=== PATIENT | female | born 1930 | race Caucasian/White ===

== ENCOUNTER 2016-12-22 15:30 | Emergency (ER) | payer MEDICARE ==
[~2016-12-22] VITALS: Ht 162.6 cm; Wt 64.2 kg
[~2016-12-22 15:30] MED LIST: ACET-2267 PO; AMOX-358 PO; BETH10TA PO; CALC-654 PO; CIPR-225 PO; HYDR-3714; LORA10TA76 PO
--- OUTSIDE RECORDS SUMMARY | 2016-12-22 15:35 | XMS REPORT | Continuity of Care Document ---
Author Author [facility] Organization [facility] Address Unknown Phone Unavailable Care Team Providers Care Poultry Boner Name Role Phone LORE POWELL DO PCP Insurance Providers Payer Name Policy Number Subscriber Name Relationship [employer] [id number] Mary Gallego 19 Self / Same As Patient Advance Directives Directive Response Recorded Date/Time Advance Directives No 09/05/16 4:29pm Health Care Power of Organ Teacher No 09/05/16 4:29pm Organ Donor No 09/05/16 4:29pm Resuscitation Status Full Code 09/05/16 4:29pm Problems No problem information available. Medications Current Home Medications Medication Dose Units Route Directions Days/Qty Instructions Start Date Acetaminophen 500 Mg 500-1000 Mg Oral Every 4HRS as needed for Pain 09/05/16 Calcium Carbonate/Vitamin D3 1 Each 1 Tab Oral Daily 09/05/16 Loratadine 10 Mg 10 Mg Oral Daily 09/05/16 Amoxicillin/Potassium Clav 1 Each 1 Each Oral Twice A Day 10 09/10/16 Ciprofloxacin Hcl 500 Mg 500 Mg Oral Twice A Day 10 09/10/16 Bethanechol Chloride 10 Mg 10 Mg Oral Before Meals And At Bedtime 30 Days 09/10/16 Past Home Medications Medication Directions Ordered Status Acetaminophen/Hydrocodone Bitart 1 Each Tablet, 09/25/09 Discontinued Social History Social History Problem Response Recorded Date/Time Alcohol Use Denies Use 09/05/2016 4:32pm Recreational Drug Use No 09/05/2016 4:32pm Recent Foreign Travel No 09/05/2016 4:07pm Recent Infectious Disease Exposure No 09/05/2016 4:07pm Smoking Status Never a Smoker 09/05/2016 12:40pm Recent Hopitalizations No 09/05/2016 4:32pm Query Response Start Date Stop Date Smoking Status Never a Smoker Hospital Discharge Instructions Patient Instructions Physician Instructions Patient Instructions/FollowUp: change dressing twice a day. Check voiding twice a day and straight catheter if unable to void. Check She does with gait performance. Patient short patient takes medications antibiotics Patient Problems: gluteal abscess. Urinary retention [facility] [place] DISCHARGE ORDERS Height (Feet): 5 Height (Inches): 4.00 Weight (Pounds): 141 Weight (Ounces): 9.0 Reason Pt Homebound uses walker to get around. Gluteal abscess. In hospital urinary retention Date of Face to Face: Sep 10, 2016 Discharged To: Home Diagnosis/Conditions HH Order: gluteal abscess. Urinary retention. Unstable gait *I certify that based on my findings, the following services are medically necessary Home Health Services: Services: Nursing Services My clinical findings support the need for the above services; see Diagnosis. Pneu Vac Indicated: Yes I certify that this patient is under my care and that I, a nurse practitioner or a physician; a assistant wrestling coach working with me, had a face to face encounter that - meets the physician face to face encounter requirements with this patient as dated. Care Plan Patient Instructions:: change dressing twice a day.Check voiding twice a day and straight catheter if unable to void.Check She does with gait performance.Patient short patient takes medications antibiotics Patient Problems: gluteal abscess.Urinary retention Plan of Care Discharge Date 09/10/16 3:15pm Disposition 06 HOME HEALTH SERVICE Instructions/Education Provided Regular Diet (GEN) Forms Provided Follow-Up Fax Prescriptions See Medication Section Referrals XIOMARA RUIZ MD (Unspecified) - 09/15/16 Address: [address] [place] [phone] Reason(s) for Referral: THURSDAY SEPTEMBER 15, 2016 AT 2:45 P.M. LORE POWELL DO (Unspecified) - 09/14/16 Address: [address] [place] [phone] Reason(s) for Referral: CALL ON MONDAY TO SCHEDULE A FOLLOW-UP APPOINTMENT FOR MONDAY Care Plan and Goals See Discharge Instructions Section Functional Status Query Response Date Recorded Patient Orientation Person Place Time Situation September 10, 2016 10:36am Patient Orientation Person Place Time Situation September 10, 2016 5:07pm Comprehension Ability Understands Concepts September 08, 2016 9:00pm Allergies, Adverse Reactions, Alerts Allergen Type Severity Reaction Status Last Updated NKANo Known Allergies Allergy Mild Active 09/23/09 Immunizations Name Given Type FLU TRIvalent 5 years - Adult 09/05/16 Administered Vital Signs Acute Vital Signs Vital Response Date/Time Temperature (Fahrenheit) 98.1 degrees F (97.6 - 99.5) 09/10/2016 3:15pm Temperature (Calculated Celsius) 36.53140 degrees C (36.4 - 37.5) 09/10/2016 12:00pm Temperature Source Tympanic 09/10/2016 3:15pm Pulse Rate (adult) 94 bpm (60 - 90) 09/10/2016 3:15pm Respiratory Rate 19 bpm (12 - 24) 09/10/2016 3:15pm O2 Sat by Pulse Oximetry 96 % (88 - 100) 09/10/2016 3:15pm Blood Pressure 127/68 mm Hg 09/10/2016 3:15pm Blood Pressure Mean 87 mm Hg 09/10/2016 12:00pm Pain Numeric Pain Scale 0-No Pain 09/10/2016 3:15pm Height (Feet) 5 feet 09/05/2016 4:35pm Height (Inches) 4.00 inches 09/05/2016 4:35pm Height (Calculated Centimeters) 162.249472 cm 09/05/2016 4:35pm Weight (Pounds) 141 pounds 09/05/2016 4:35pm Weight (Ounces) 9.0 oz 09/05/2016 4:35pm Weight (Calculated Grams) 22497.67 gm 09/05/2016 4:35pm Weight (Calculated Kilograms) 64.037865 kilograms 09/05/2016 4:35pm Calculated BMI 24.3 09/05/2016 4:35pm Results Laboratory Results Test Name Result Units Flags Reference Collection Date/Time Result Date/ Time Comments White Blood Count 7.0 10^3/uL 4.3-11.0 09/10/2016 5:20am 09/10/2016 5: 29am Red Blood Count 3.49 10^6/uL L 4.35-5.85 09/10/2016 5:20am 09/10/2016 5: 29am Hemoglobin 11.3 G/DL L 11.5-16.0 09/10/2016 5:20am 09/10/2016 5:29am Hematocrit 33 % L 35-52 09/10/2016 5:20am 09/10/2016 5:29am Mean Corpuscular Volume 95 FL 80-99 09/10/2016 5:20am 09/10/2016 5: 29am Mean Corpuscular Hemoglobin 32 PG 25-34 09/10/2016 5:20am 09/10/2016 5: 29am Mean Corpuscular Hemoglobin Concent 34 G/DL 32-36 09/10/2016 5:20am 5:29am Red Cell Distribution Width 12.8 % 10.0-14.5 09/10/2016 5:20am 2015 5:29am Platelet Count 324 10^3/uL 130-400 09/10/2016 5:20am 09/10/2016 5:29am Mean Platelet Volume 9.2 FL 7.4-10.4 09/10/2016 5:20am 09/10/2016 5: 29am Neutrophils (%) (Auto) 69 % 42-75 09/09/2016 6:30am 09/09/2016 7:09am Lymphocytes (%) (Auto) 16 % 12-44 09/09/2016 6:30am 09/09/2016 7:09am Monocytes (%) (Auto) 13 % H 0-12 09/09/2016 6:30am 09/09/2016 7:09am Eosinophils (%) (Auto) 1 % 0-10 09/09/2016 6:30am 09/09/2016 7:09am Basophils (%) (Auto) 0 % 0-10 09/09/2016 6:30am 09/09/2016 7:09am Neutrophils # (Auto) 4.9 X 10^3 1.8-7.8 09/09/2016 6:30am 09/09/2016 7: 09am Lymphocytes # (Auto) 1.1 X 10^3 1.0-4.0 09/09/2016 6:30am 09/09/2016 7: 09am Monocytes # (Auto) 0.9 X 10^3 0.0-1.0 09/09/2016 6:30am 09/09/2016 7: 09am Eosinophils # (Auto) 0.1 10^3/uL 0.0-0.3 09/09/2016 6:30am 09/09/2016 7 :09am Basophils # (Auto) 0.0 10^3/uL 0.0-0.1 09/09/2016 6:30am 09/09/2016 7: 09am Sodium Level 139 MMOL/L 135-145 09/10/2016 5:20am 09/10/2016 5:49am Potassium Level 3.6 MMOL/L 3.6-5.0 09/10/2016 5:20am 09/10/2016 5:49am Chloride Level 102 MMOL/L 98-107 09/10/2016 5:20am 09/10/2016 5:49am Carbon Dioxide Level 28 MMOL/L 21-32 09/10/2016 5:20am 09/10/2016 5: 49am Anion Gap 9 MMOL/L 5-14 09/10/2016 5:20am 09/10/2016 5:49am Blood Urea Nitrogen 3 MG/DL L 7-18 09/10/2016 5:20am 09/10/2016 5:49am Creatinine 0.55 MG/DL L 0.60-1.30 09/10/2016 5:20am 09/10/2016 5:49am BUN/Creatinine Ratio 5 09/10/2016 5:20am 09/10/2016 5:49am Estimat Glomerular Filtration Rate > 60 09/10/2016 5:20am 2015 5:49am GFR INTERPRETIVE DATA UNITS FOR ESTIMATED GFR (eGFR): mL/min/1.73 M2 REFERENCE RANGE FOR ESTIMATED GFR (eGFR) eGFR NORMAL eGFR >60 MODERATELY DECREASED eGFR 30-59 SEVERLY DECREASED eGFR 15-29 KIDNEY FAILURE <15 (OR DIALYSIS) Glucose Level 116 MG/DL H 70-105 09/10/2016 5:20am 09/10/2016 5:49am Calcium Level 8.2 MG/DL L 8.5-10.1 09/10/2016 5:20am 09/10/2016 5:49am Total Bilirubin 0.6 MG/DL 0.1-1.0 09/06/2016 5:44am 09/06/2016 7:00am Alkaline Phosphatase 48 U/L 40-136 09/06/2016 5:44am 09/06/2016 7:00am Aspartate Amino Transf (AST/SGOT) 16 U/L 5-34 09/06/2016 5:44am 2015 7:00am Alanine Aminotransferase (ALT/SGPT) 17 U/L 0-55 09/06/2016 5:44am 09/06 7:00am Total Protein 5.4 G/DL L 6.4-8.2 09/06/2016 5:44am 09/06/2016 7:00am Albumin 3.2 G/DL 3.2-4.5 09/06/2016 5:44am 09/06/2016 7:00am Microbiology Results Procedure Source Result Collection Date/Time Result Date/Time Blood Culture Peripheral, Left Wrist No growth 09/05/2016 2:00pm 2015 4:48pm Blood Culture Peripheral, Right Wrist No growth 09/05/2016 2:10pm 2015 4:48pm Wound Culture Cyst/Abscess, Coccyx STAPHYLOCOCCUS AUREUS 09/05/2016 4:00pm 09/09/2016 10:26am STREP ANGINOSUS 09/05/2016 4:00pm 09/09/2016 10:26am MRSA Screen Nasal MRSA not isolated 09/06/2016 6:30pm 09/08/2016 9:15am Procedures Procedure Status Date Provider(s) Incision and drainage of rectal abscess Completed 09/07/16 NELLIE MARCELO MD Encounters Encounter Location Arrival/Admit Date Discharge/Depart Date Attending Provider Discharged Inpatient [facility] 09/05/16 11:05am 3:15pm LORE POWELL DO
[2016-12-22] MEDS ORDERED: AZIT500T2 PO (16:28)
--- NOTE | 2016-12-22 17:09 | Diagnostic Imaging Report ---
INDICATION: Cough and congestion. COMPARISON: 09/23/2009. FINDINGS: Two views of the chest are obtained. Heart size is normal. There is no pulmonary vascular congestion. There is no pneumothorax, mediastinal widening, or pleural fluid demonstrated. There is a large air-filled hiatal hernia. There is perhaps some minimal atelectasis at the left lung base. The lungs are otherwise clear. The osseous structures appear unremarkable. IMPRESSION: Large hiatal hernia. Probable mild left basilar atelectasis. No additional abnormality is demonstrated. Dictated by: Dictated on workstation # [id number]
--- NOTE | 2016-12-22 17:25 | ED Cough/URI ---
General Chief Complaint: Cough/Cold/Flu Symptoms Stated Complaint: CONGESTION;COUGH;WEAKNESS Nursing Triage Note: PT STATES COUGH/COLD/CONGESTION FOR ABOUT [address] POWELL TOLD HER TO COME TO THE ER TO BE SEEN BY A DR. FEVER OFF AND ON, TAKING TYLENOL, LAST DOSE THIS A.M. History of Present Illness Time seen by provider: 16:30 Initial Comments Evaluation for continued cough and fatigue. Started with Zithromax yesterday took 2 pills yesterday and one today. Timing/Duration: getting worse Severity/Quality: productive cough (clear phlegm) Prior Episodes/Possible Cause: no prior episodes Modifying Factors: Improves With Coughing, Improves With Rest Associated Symptoms: fever/chills, other (fatigue) Allergies and Home Medications Allergies Coded Allergies: NKANo Known Allergies (Unverified Allergy, Mild, 09/23/09) Home Medications Azithromycin 500 Mg Tablet #3 500 MG PO DAILY (Reported) Constitutional: see HPI fever EENTM: no symptoms reported see HPI Respiratory: see HPI coughNo dyspnea on exertion, phlegmNo short of breath, No wheezing Cardiovascular: no symptoms reported see HPI Gastrointestinal: no symptoms reported see HPI Genitourinary: no symptoms reported see HPI Musculoskeletal: no symptoms reported see HPI Skin: no symptoms reported see HPI Psychiatric/Neurological: No Symptoms Reported See HPI Hematologic/Lymphatic: No Symptoms Reported See HPI Immunological/Allergic: no symptoms reported see HPI All Other Systems Reviewed Negative Unless Noted: Yes Past Jvhdjow-Rlptne-Raaenw Hx Patient Social History Alcohol Use: Denies Use Recreational Drug Use: No Smoking Status: Never a Smoker Recent Foreign Travel: No Contact w/Someone Who Travel: No Recent Infectious Disease Expo: No Recent Hopitalizations: Yes (CYST/ABSCESS REMOVAL 08/2016) Seasonal Allergies Seasonal Allergies: No Surgeries HX Surgeries: Yes (ABSCESS REMOVAL, EYE SURGERY) Surgeries: Tonsillectomy Respiratory Hx Respiratory Disorders: No Cardiovascular Hx Cardiac Disorders: No Neurological Hx Neurological Disorders: No 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 System Hx 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 Disorders: No Genitourinary Hx Genitourinary Disorders: No Gastrointestinal Hx Gastrointestinal Disorders: Yes Gastrointestinal Disorders: Abdominal Hernia (Hiatal hernia) Musculoskeletal Hx Musculoskeletal Disorders: Yes Musculoskeletal Disorders: Arthritis Endocrine Hx Endocrine Disorders: No (PRE-DIABETIC) HEENT HX ENT Disorders: Yes HEENT Disorders: Cataract Cancer Hx Cancer: No Psychosocial Hx Psychiatric Problems: No Integumentary HX Skin/Integumentary Disorder: No Blood Transfusions Hx Blood Disorders: No Adverse Reaction to a Blood Tr: No Reviewed Nursing Assessment Reviewed/Agree w Nursing PMH: Yes Family Medical History Family Medial History: Diabetes mellitus 19 MOTHER Physical Exam Vital Signs Vital Sign - Last 12Hours 12/22/16 16:18 Temp 99.1 Pulse 110 Resp 20 B/P 175/98 Pulse Ox 95 O2 Delivery Room Air Capillary Refill : Less Than 3 Seconds General Appearance: WD/WN no apparent distress Eyes: Bilateral Eye EOMI, Bilateral Eye Normal Inspection, Bilateral Eye PERRL HEENT: PERRL/EOMI normal ENT inspection TMs normal pharynx normal other (PND) Neck: non-tender full range of motion supple normal inspection Respiratory: chest non-tender lungs clear no respiratory distress Cardiovascular: normal peripheral pulses regular rate, rhythm no edema no murmur Gastrointestinal: normal bowel sounds non tender soft no organomegaly Extremities: normal range of motion non-tender normal inspection no pedal edema no calf tenderness normal capillary refill Neurologic/Psychiatric: no motor/sensory deficits alert normal mood/affect oriented x 3 Skin: normal color warm/dry Lymphatic: no adenopathy Progress/Results/Core Measures Results/Orders Micro Results Microbiology 12/22/16 Influenza Types A,B Antigen (JAIRO) - Final, Complete My Orders Orders-DESTINY KASPER Influenza A And B Antigens (12/22/16 16:32) Chest Pa/Lat (2 View) (12/22/16 16:39) Vital Signs/I&O Vital Sign - Last 12Hours 12/22/16 12/22/16 16:18 16:30 Temp 99.1 Pulse 110 Resp 20 B/P 175/98 Pulse Ox 95 O2 Delivery Room Air Room Air Blood Pressure Mean: 123 Progress Note : Time: 16:30 Progress Note Initial evaluation completed, recommended flu swab and chest x-ray. We'll reevaluate after these are completed. 1515 Influenza A/B Negative, chest x-ray negative. 1525 discussed findings with patient. Diagnostic Imaging Diagonstic Imaging: Xray Plain Films/CT/US/NM/MRI: chest Comments NAME: MARY GALLEGO Chen MED REC#: [id number] PT STATUS: REG ER : 1930 PHYSICIAN: DESTINY KASPER ADMIT DATE: 12/22/16/ER Signed Date of Exam: 12/22/16 CHEST PA/LAT (2 VIEW) INDICATION: Cough and congestion. COMPARISON: 09/23/2009. FINDINGS: Two views of the chest are obtained. Heart size is normal. There is no pulmonary vascular congestion. There is no pneumothorax, mediastinal widening, or pleural fluid demonstrated. There is a large air-filled hiatal hernia. There is perhaps some minimal atelectasis at the left lung base. The lungs are otherwise clear. The osseous structures appear unremarkable. IMPRESSION: Large hiatal hernia. Probable mild left basilar atelectasis. No additional abnormality is demonstrated. Dictated by: Dictated on workstation # [id number] Dict: 12/22/16 1704 Trans: 12/22/16 1715 [id number] Interpreted by: ODILIA CARTER DO Electronically signed by:ODILIA CARTER DO 12/22/16 1717 Departure Impression Impression: Primary Impression: Bronchitis Additional Impression: Cough Disposition: 01 HOME, SELF-CARE Condition: Stable Departure-Patient Inst. Decision time for Depature: 17:20 Referrals: LORE POWELL DO (PCP) Primary Care Physician Patient Instructions: Cough, Adult (DC) Add. Discharge Instructions: All discharge instructions reviewed with patient and/or family. Voiced understanding. Cool Mist vaporizer. Tylenol 650 mg Every 6 hours as needed. Rest and take it easy. Follow up with Dr. Powell, if no improvement in 3-4 days. Continue Delsym and finish Z-pack. Return to emergency dept for fevers, cough, shortness of breath, change/worse symptoms. Copy Copies To 1: LORE POWELL AMY ARNP Dec 22, 2016 17:25
[2016-12-22 17:35] VITALS: BP 160/98
== END 2016-12-22 17:35 | disposition home or self-care (01) ==
LOC: EDUNIT# 15:30 → ER 15:32
DX: J40 Bronchitis, not specified as acute or chronic (principal)
CPT/HCPCS: 71020; 87804; 99282

== ENCOUNTER → 2017-08-21 | Outpatient (CLI) | payer MEDICARE ==
[~2017-08-21] MED LIST changes: +AZIT500T2 PO
--- NOTE | 2017-08-21 18:18 | Diagnostic Imaging Report ---
INDICATION: Vaginal bleeding. COMPARISON STUDY: CT of the pelvis 09/05/2016. FINDINGS: Transvaginal imaging of the pelvis demonstrates an atrophied uterus measuring 5.4 x 3.1 x 2.1 cm. Endometrium measures 2.3 mm in the body and fundus. This becomes irregular near the cervix and measuring up to 6 mm. No flow is seen within this. There is no ascites. The ovaries are not seen. IMPRESSION: Distally, the endometrium is somewhat irregular measuring up to 6 mm. Early endometrial tumor cannot be excluded. This could also be blood clots. Dictated by: Dictated on workstation # [id number]
== END ==
LOC: RAD 16:39
PROVIDERS: ATTEND Family Medicine
DX: N95.0 Postmenopausal bleeding (principal); N85.8 Other specified noninflammatory disorders of uterus
CPT/HCPCS: 76830; 76856

== ENCOUNTER → 2017-12-21 | Outpatient (CLI) | payer MEDICARE | LOC: LAB 16:23 | PROVIDERS: ATTEND Family Medicine | DX: N39.0 Urinary tract infection, site not specified (principal) | CPT/HCPCS: 87088 ==

== ENCOUNTER → 2018-01-11 | Outpatient (CLI) | payer MEDICARE | LOC: LAB 16:57 | PROVIDERS: ATTEND Family Medicine | DX: R35.0 Frequency of micturition (principal) | CPT/HCPCS: 87088 ==

== ENCOUNTER 2018-02-11 10:09 | Observation (INO) | payer MEDICARE ==
[2018-02-11] VITALS (15 sets, daily range): BP systolic 144–186; BP diastolic 70–109
[~2018-02-11] VITALS: Ht 165.1 cm; Wt 52.7 kg
--- OUTSIDE RECORDS SUMMARY | 2018-02-11 10:15 | XMS REPORT | Continuity of Care Document ---
Author Author [facility] Organization [facility] Address Unknown Phone Unavailable Allergies Active Description Code Type Severity Reaction Onset Reported/Identified Relationship to Patient Clinical Status Yes NKANo Known Allergies NKA Miscellaneous Allergy Mild N/A 09/23/2009 Medications There is no data. Problems Date Dx Coded Attending Type Code Diagnosis Diagnosed By 10/12/1599 PAKO CARTER MD Ot E88.81 METABOLIC SYNDROME 10/12/1599 PAKO CARTER MD Ot L02.31 CUTANEOUS ABSCESS OF BUTTOCK 10/12/1599 PAKO CARTER MD Ot L03.317 CELLULITIS OF BUTTOCK 10/12/1599 PAKO CARTER MD Ot T81.31XA DISRUPTION OF EXTERNAL OPERATION (SURGIC 12/23/2014 Ot V76.12 12/23/2014 Ot V76.12 12/23/2014 GELGIOVANNIDER DOLORE Ot V76.12 09/05/2016 Ot V76.12 OTH SCREEN MAMMO-MALIGN NEOPLASM OF ARISTEO 09/05/2016 GELLENDER DOLORE Ot V76.12 OTH SCREEN MAMMO-MALIGN NEOPLASM OF ARISTEO 09/05/2016 PAPALENDER LORE MARTÍNEZ Ot V76.12 OTH SCREEN MAMMO-MALIGN NEOPLASM OF ARISTEO 09/07/2016 LORE POWELL DO Ot L03.317 CELLULITIS OF BUTTOCK 09/07/2016 LORE POWELL DO Ot M19.90 UNSPECIFIED OSTEOARTHRITIS, UNSPECIFIED 09/08/2016 LORE POWELL DO Ot A49.01 METHICILLIN SUSCEP STAPH INFECTION, UNSP 09/08/2016 LORE POWELL DO Ot D64.9 ANEMIA, UNSPECIFIED 09/08/2016 LORE POWELL DO Ot E87.6 HYPOKALEMIA 09/08/2016 LORE POWELL DO Ot L02.31 CUTANEOUS ABSCESS OF BUTTOCK 09/08/2016 LORE POWELL DO Ot L03.317 CELLULITIS OF BUTTOCK 09/08/2016 GELLENDER DO, LORE Perez Ot M19.90 UNSPECIFIED OSTEOARTHRITIS, UNSPECIFIED 09/10/2016 PAPALENDER DO, LORE Perez Ot B95.4 OTH STREPTOCOCCUS THE CAUSE OF DISEAS 09/10/2016 PAPALENDER DO, LORE Perez Ot B95.61 METHICILLIN SUSCEP STAPH INFCT CAUSING D 09/10/2016 MEDDER DOLORE Ot D64.9 ANEMIA, UNSPECIFIED 09/10/2016 GELLENDER DO, LORE Perez Ot E87.6 HYPOKALEMIA 09/10/2016 PAPALENDER DO, LORE Perez Ot I10 ESSENTIAL (PRIMARY) HYPERTENSION 09/10/2016 MEDDER DO, LORE Perez Ot L02.31 CUTANEOUS ABSCESS OF BUTTOCK 09/10/2016 ANDRE MARTÍNEZ, LORE Perez Ot L03.317 CELLULITIS OF BUTTOCK 09/10/2016 PAPALENDER DO, LORE Perez Ot M19.90 UNSPECIFIED OSTEOARTHRITIS, UNSPECIFIED 09/10/2016 ANDRE MARTÍNEZ, LORE Perez Ot N31.9 NEUROMUSCULAR DYSFUNCTION OF BLADDER, UN 09/10/2016 MEDDER DO, LORE Perez Ot 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, UNSPECIFIED 09/10/2016 MEDDER DO, LORE Perez Ot R26.81 UNSTEADINESS ON FEET 09/10/2016 ANDRE MARTÍNEZ, LORE Perez Ot R33.9 RETENTION OF URINE, UNSPECIFIED 10/20/2016 EMMA BROWNLEE, PAKO Hammer Ot E88.81 METABOLIC SYNDROME 10/20/2016 PAKO CARTER MD Ot L02.31 CUTANEOUS ABSCESS OF BUTTOCK 10/20/2016 PAKO CARTER MD Ot L03.317 CELLULITIS OF BUTTOCK 10/20/2016 PAKO CARTER MD Ot T81.31XA DISRUPTION OF EXTERNAL OPERATION (SURGIC 12/22/2016 DESTINY KASPER Ot J40 BRONCHITIS, NOT SPECIFIED ACUTE OR CH 12/22/2016 DESTINY KASPER Ot R05 COUGH 12/22/2016 Ot V76.12 OTH SCREEN MAMMO-MALIGN NEOPLASM OF ARISTEO 12/22/2016 PAPALENDER DOLORE Ot V76.12 OTH SCREEN MAMMO-MALIGN NEOPLASM OF ARISTEO 12/22/2016 PAPALENDER DOLORE Ot V76.12 OTH SCREEN MAMMO-MALIGN NEOPLASM OF ARISTEO 12/23/2016 DESTINY KASPER Ot J40 BRONCHITIS, NOT SPECIFIED ACUTE OR CH 12/23/2016 DESTINY KASPER Ot R05 COUGH 08/22/2017 GELLENDER DO, LORE Perez Ot N85.8 OTHER SPECIFIED NONINFLAMMATORY DISORDER 08/22/2017 GELLENDER DO, LORE Perez Ot N95.0 POSTMENOPAUSAL BLEEDING 09/12/2017 GELLENDER DO, LORE Perez Ot N85.8 OTHER SPECIFIED NONINFLAMMATORY DISORDER 09/12/2017 GELLENDER DO, LORE Perez Ot N95.0 POSTMENOPAUSAL BLEEDING 12/22/2017 GELLENDER DO, LORE Perez Ot N39.0 URINARY TRACT INFECTION, SITE NOT SPECIF 12/22/2017 GELLENDER DO, LORE Perez Ot N39.0 URINARY TRACT INFECTION, SITE NOT SPECIF 01/12/2018 GELLENDER DO, LORE Perez Ot R35.0 FREQUENCY OF MICTURITION 01/16/2018 GELLENDER DO, LORE Perez Ot N39.0 URINARY TRACT INFECTION, SITE NOT SPECIF 01/18/2018 GELLENDER DO, LORE Preez Ot R35.0 FREQUENCY OF MICTURITION Procedures Code Description Performed By Performed On [id number] EXTRACTION OF BUTTOCK SKIN , EXTERNAL LOLY 09/07/2016 Results Test Result Range Complete blood count (CBC) with automated white blood cell (WBC) differential - 09/05/16 12:30 Blood leukocytes automated count (number/volume) 11.1 10*3/uL 4.3-11.0 Blood erythrocytes automated count (number/volume) 3.53 10*6/uL 4.35-5.85 Venous blood hemoglobin measurement (mass/volume) 11.8 g/dL 11.5-16.0 Blood hematocrit (volume fraction) 34 % 35-52 Automated erythrocyte mean corpuscular volume 96 [foz_us] 80-99 Automated erythrocyte mean corpuscular hemoglobin (mass per erythrocyte) 33 pg 25-34 Automated erythrocyte mean corpuscular hemoglobin concentration measurement ( mass/volume) 35 g/dL 32-36 Automated erythrocyte distribution width ratio 12.7 % 10.0-14.5 Automated blood platelet count (count/volume) 245 10*3/uL 130-400 Automated blood platelet mean volume measurement 10.0 [foz_us] 7.4-10.4 Automated blood neutrophils/100 leukocytes 77 % 42-75 Automated blood lymphocytes/100 leukocytes 12 % 12-44 Blood monocytes/100 leukocytes 11 % 0-12 Automated blood eosinophils/100 leukocytes 1 % 0-10 Automated blood basophils/100 leukocytes 0 % 0-10 Blood neutrophils automated count (number/volume) 8.5 10*3 1.8-7.8 Blood lymphocytes automated count (number/volume) 1.3 10*3 1.0-4.0 Blood monocytes automated count (number/volume) 1.2 10*3 0.0-1.0 Automated eosinophil count 0.1 10*3/uL 0.0-0.3 Automated blood basophil count (count/volume) 0.0 10*3/uL 0.0-0.1 Comprehensive metabolic panel - 09/05/16 14:00 Serum or plasma sodium measurement (moles/volume) 134 mmol/L 135-145 Serum or plasma potassium measurement (moles/volume) 3.4 mmol/L 3.6-5.0 Serum or plasma chloride measurement (moles/volume) 102 mmol/L 98-107 Carbon dioxide 21 mmol/L 21-32 Serum or plasma anion gap determination (moles/volume) 11 mmol/L 5-14 Serum or plasma urea nitrogen measurement (mass/volume) 15 mg/dL 7-18 Serum or plasma creatinine measurement (mass/volume) 0.59 mg/dL 0.60-1.30 Serum or plasma urea nitrogen/creatinine mass ratio 25 NRG Serum or plasma creatinine measurement with calculation of estimated glomerular filtration rate > NRG Serum or plasma glucose measurement (mass/volume) 109 mg/dL 70-105 Serum or plasma calcium measurement (mass/volume) 8.8 mg/dL 8.5-10.1 Serum or plasma total bilirubin measurement (mass/volume) 0.6 mg/dL 0.1-1.0 Serum or plasma alkaline phosphatase measurement (enzymatic activity/volume) 50 U/L 40-136 Serum or plasma aspartate aminotransferase measurement (enzymatic activity/ volume) 18 U/L 5-34 Serum or plasma alanine aminotransferase measurement (enzymatic activity/volume ) 16 U/L 0-55 Serum or plasma protein measurement (mass/volume) 6.1 g/dL 6.4-8.2 Serum or plasma albumin measurement (mass/volume) 3.6 g/dL 3.2-4.5 Bacterial blood culture - 09/05/16 14:00 Bacterial blood culture NG NRG Bacterial blood culture - 09/05/16 14:10 Bacterial blood culture NG NRG Gram stain microscopy - 09/05/16 16:00 GRAM STAIN RESULT MODERATE # GRAM POSITIVE COCCI NRG Bacteria identification in wound by culture - 09/05/16 16:00 Bacteria identification in wound by culture [id number] NRG FREE TEXT EXTERNAL (GROUP F POSITIVE) NRG QUANTITY OF GROWTH Abundant Growth NRG Bacterial susceptibility panel - 09/05/16 16:00 Oxacillin susceptibility test by minimum inhibitory concentration < = NRG Gentamicin susceptibility test by minimum inhibitory concentration < = NRG Clindamycin susceptibility test by minimum inhibitory concentration <= NRG Erythromycin susceptibility test by minimum inhibitory concentration >= NRG Trimethoprim/sulfamethoxazole susceptibility test by minimum inhibitoryconcentration <= NRG Vancomycin susceptibility test by minimum inhibitory concentration 1 NRG Levofloxacin susceptibility test by minimum inhibitory concentration <= NRG Rifampin susceptibility test by minimum inhibitory concentration <= NRG Tetracycline susceptibility test by minimum inhibitory concentration <= NRG Complete blood count (CBC) with automated white blood cell (WBC) differential - 09/06/16 05:44 Blood leukocytes automated count (number/volume) 10.4 10*3/uL 4.3-11.0 Blood erythrocytes automated count (number/volume) 3.33 10*6/uL 4.35-5.85 Venous blood hemoglobin measurement (mass/volume) 10.9 g/dL 11.5-16.0 Blood hematocrit (volume fraction) 32 % 35-52 Automated erythrocyte mean corpuscular volume 95 [foz_us] 80-99 Automated erythrocyte mean corpuscular hemoglobin (mass per erythrocyte) 33 pg 25-34 Automated erythrocyte mean corpuscular hemoglobin concentration measurement ( mass/volume) 35 g/dL 32-36 Automated erythrocyte distribution width ratio 12.7 % 10.0-14.5 Automated blood platelet count (count/volume) 233 10*3/uL 130-400 Automated blood platelet mean volume measurement 10.6 [foz_us] 7.4-10.4 Automated blood neutrophils/100 leukocytes 79 % 42-75 Automated blood lymphocytes/100 leukocytes 8 % 12-44 Blood monocytes/100 leukocytes 12 % 0-12 Automated blood eosinophils/100 leukocytes 1 % 0-10 Automated blood basophils/100 leukocytes 0 % 0-10 Blood neutrophils automated count (number/volume) 8.2 10*3 1.8-7.8 Blood lymphocytes automated count (number/volume) 0.9 10*3 1.0-4.0 Blood monocytes automated count (number/volume) 1.2 10*3 0.0-1.0 Automated eosinophil count 0.1 10*3/uL 0.0-0.3 Automated blood basophil count (count/volume) 0.0 10*3/uL 0.0-0.1 Comprehensive metabolic panel - 09/06/16 05:44 Serum or plasma sodium measurement (moles/volume) 135 mmol/L 135-145 Serum or plasma potassium measurement (moles/volume) 3.5 mmol/L 3.6-5.0 Serum or plasma chloride measurement (moles/volume) 104 mmol/L 98-107 Carbon dioxide 21 mmol/L 21-32 Serum or plasma anion gap determination (moles/volume) 10 mmol/L 5-14 Serum or plasma urea nitrogen measurement (mass/volume) 8 mg/dL 7-18 Serum or plasma creatinine measurement (mass/volume) 0.57 mg/dL 0.60-1.30 Serum or plasma urea nitrogen/creatinine mass ratio 14 NRG Serum or plasma creatinine measurement with calculation of estimated glomerular filtration rate > NRG Serum or plasma glucose measurement (mass/volume) 114 mg/dL 70-105 Serum or plasma calcium measurement (mass/volume) 8.2 mg/dL 8.5-10.1 Serum or plasma total bilirubin measurement (mass/volume) 0.6 mg/dL 0.1-1.0 Serum or plasma alkaline phosphatase measurement (enzymatic activity/volume) 48 U/L 40-136 Serum or plasma aspartate aminotransferase measurement (enzymatic activity/ volume) 16 U/L 5-34 Serum or plasma alanine aminotransferase measurement (enzymatic activity/volume ) 17 U/L 0-55 Serum or plasma protein measurement (mass/volume) 5.4 g/dL 6.4-8.2 Serum or plasma albumin measurement (mass/volume) 3.2 g/dL 3.2-4.5 Methicillin resistant Staphylococcus aureus (MRSA) screening culture - 18:30 Methicillin resistant Staphylococcus aureus (MRSA) screening culture NEG NR Complete blood count (CBC) with automated white blood cell (WBC) differential - 09/07/16 06:15 Blood leukocytes automated count (number/volume) 9.2 10*3/uL 4.3-11.0 Blood erythrocytes automated count (number/volume) 3.52 10*6/uL 4.35-5.85 Venous blood hemoglobin measurement (mass/volume) 11.7 g/dL 11.5-16.0 Blood hematocrit (volume fraction) 34 % 35-52 Automated erythrocyte mean corpuscular volume 96 [foz_us] 80-99 Automated erythrocyte mean corpuscular hemoglobin (mass per erythrocyte) 33 pg 25-34 Automated erythrocyte mean corpuscular hemoglobin concentration measurement ( mass/volume) 35 g/dL 32-36 Automated erythrocyte distribution width ratio 12.7 % 10.0-14.5 Automated blood platelet count (count/volume) 266 10*3/uL 130-400 Automated blood platelet mean volume measurement 9.9 [foz_us] 7.4-10.4 Automated blood neutrophils/100 leukocytes 73 % 42-75 Automated blood lymphocytes/100 leukocytes 14 % 12-44 Blood monocytes/100 leukocytes 11 % 0-12 Automated blood eosinophils/100 leukocytes 2 % 0-10 Automated blood basophils/100 leukocytes 0 % 0-10 Blood neutrophils automated count (number/volume) 6.7 10*3 1.8-7.8 Blood lymphocytes automated count (number/volume) 1.3 10*3 1.0-4.0 Blood monocytes automated count (number/volume) 1.0 10*3 0.0-1.0 Automated eosinophil count 0.2 10*3/uL 0.0-0.3 Automated blood basophil count (count/volume) 0.0 10*3/uL 0.0-0.1 Whole blood basic metabolic panel - 09/07/16 06:15 Serum or plasma sodium measurement (moles/volume) 136 mmol/L 135-145 Serum or plasma potassium measurement (moles/volume) 3.6 mmol/L 3.6-5.0 Serum or plasma chloride measurement (moles/volume) 102 mmol/L 98-107 Carbon dioxide 24 mmol/L 21-32 Serum or plasma anion gap determination (moles/volume) 10 mmol/L 5-14 Serum or plasma urea nitrogen measurement (mass/volume) 5 mg/dL 7-18 Serum or plasma creatinine measurement (mass/volume) 0.62 mg/dL 0.60-1.30 Serum or plasma urea nitrogen/creatinine mass ratio 8 NRG Serum or plasma creatinine measurement with calculation of estimated glomerular filtration rate > NRG Serum or plasma glucose measurement (mass/volume) 115 mg/dL 70-105 Serum or plasma calcium measurement (mass/volume) 9.0 mg/dL 8.5-10.1 Complete blood count (CBC) with automated white blood cell (WBC) differential - 09/08/16 05:17 Blood leukocytes automated count (number/volume) 7.5 10*3/uL 4.3-11.0 Blood erythrocytes automated count (number/volume) 3.22 10*6/uL 4.35-5.85 Venous blood hemoglobin measurement (mass/volume) 10.6 g/dL 11.5-16.0 Blood hematocrit (volume fraction) 31 % 35-52 Automated erythrocyte mean corpuscular volume 96 [foz_us] 80-99 Automated erythrocyte mean corpuscular hemoglobin (mass per erythrocyte) 33 pg 25-34 Automated erythrocyte mean corpuscular hemoglobin concentration measurement ( mass/volume) 34 g/dL 32-36 Automated erythrocyte distribution width ratio 12.7 % 10.0-14.5 Automated blood platelet count (count/volume) 268 10*3/uL 130-400 Automated blood platelet mean volume measurement 10.1 [foz_us] 7.4-10.4 Automated blood neutrophils/100 leukocytes 68 % 42-75 Automated blood lymphocytes/100 leukocytes 17 % 12-44 Blood monocytes/100 leukocytes 12 % 0-12 Automated blood eosinophils/100 leukocytes 2 % 0-10 Automated blood basophils/100 leukocytes 0 % 0-10 Blood neutrophils automated count (number/volume) 5.1 10*3 1.8-7.8 Blood lymphocytes automated count (number/volume) 1.3 10*3 1.0-4.0 Blood monocytes automated count (number/volume) 0.9 10*3 0.0-1.0 Automated eosinophil count 0.2 10*3/uL 0.0-0.3 Automated blood basophil count (count/volume) 0.0 10*3/uL 0.0-0.1 Whole blood basic metabolic panel - 09/08/16 05:17 Serum or plasma sodium measurement (moles/volume) 135 mmol/L 135-145 Serum or plasma potassium measurement (moles/volume) 3.5 mmol/L 3.6-5.0 Serum or plasma chloride measurement (moles/volume) 104 mmol/L 98-107 Carbon dioxide 26 mmol/L 21-32 Serum or plasma anion gap determination (moles/volume) 5 mmol/L 5-14 Serum or plasma urea nitrogen measurement (mass/volume) 3 mg/dL 7-18 Serum or plasma creatinine measurement (mass/volume) 0.57 mg/dL 0.60-1.30 Serum or plasma urea nitrogen/creatinine mass ratio 5 NRG Serum or plasma creatinine measurement with calculation of estimated glomerular filtration rate > NRG Serum or plasma glucose measurement (mass/volume) 128 mg/dL 70-105 Serum or plasma calcium measurement (mass/volume) 8.2 mg/dL 8.5-10.1 Complete blood count (CBC) with automated white blood cell (WBC) differential - 09/09/16 06:30 Blood leukocytes automated count (number/volume) 7.0 10*3/uL 4.3-11.0 Blood erythrocytes automated count (number/volume) 3.51 10*6/uL 4.35-5.85 Venous blood hemoglobin measurement (mass/volume) 11.6 g/dL 11.5-16.0 Blood hematocrit (volume fraction) 34 % 35-52 Automated erythrocyte mean corpuscular volume 95 [foz_us] 80-99 Automated erythrocyte mean corpuscular hemoglobin (mass per erythrocyte) 33 pg 25-34 Automated erythrocyte mean corpuscular hemoglobin concentration measurement ( mass/volume) 35 g/dL 32-36 Automated erythrocyte distribution width ratio 12.6 % 10.0-14.5 Automated blood platelet count (count/volume) 323 10*3/uL 130-400 Automated blood platelet mean volume measurement 9.8 [foz_us] 7.4-10.4 Automated blood neutrophils/100 leukocytes 69 % 42-75 Automated blood lymphocytes/100 leukocytes 16 % 12-44 Blood monocytes/100 leukocytes 13 % 0-12 Automated blood eosinophils/100 leukocytes 1 % 0-10 Automated blood basophils/100 leukocytes 0 % 0-10 Blood neutrophils automated count (number/volume) 4.9 10*3 1.8-7.8 Blood lymphocytes automated count (number/volume) 1.1 10*3 1.0-4.0 Blood monocytes automated count (number/volume) 0.9 10*3 0.0-1.0 Automated eosinophil count 0.1 10*3/uL 0.0-0.3 Automated blood basophil count (count/volume) 0.0 10*3/uL 0.0-0.1 Whole blood basic metabolic panel - 09/09/16 06:30 Serum or plasma sodium measurement (moles/volume) 138 mmol/L 135-145 Serum or plasma potassium measurement (moles/volume) 3.4 mmol/L 3.6-5.0 Serum or plasma chloride measurement (moles/volume) 101 mmol/L 98-107 Carbon dioxide 28 mmol/L 21-32 Serum or plasma anion gap determination (moles/volume) 9 mmol/L 5-14 Serum or plasma urea nitrogen measurement (mass/volume) < mg/dL 7-18 Serum or plasma creatinine measurement (mass/volume) 0.56 mg/dL 0.60-1.30 Serum or plasma urea nitrogen/creatinine mass ratio 4 NRG Serum or plasma creatinine measurement with calculation of estimated glomerular filtration rate > NRG Serum or plasma glucose measurement (mass/volume) 116 mg/dL 70-105 Serum or plasma calcium measurement (mass/volume) 8.8 mg/dL 8.5-10.1 Automated blood complete blood count (hemogram) panel - 09/10/16 05:20 Blood leukocytes automated count (number/volume) 7.0 10*3/uL 4.3-11.0 Blood erythrocytes automated count (number/volume) 3.49 10*6/uL 4.35-5.85 Venous blood hemoglobin measurement (mass/volume) 11.3 g/dL 11.5-16.0 Blood hematocrit (volume fraction) 33 % 35-52 Automated erythrocyte mean corpuscular volume 95 [foz_us] 80-99 Automated erythrocyte mean corpuscular hemoglobin (mass per erythrocyte) 32 pg 25-34 Automated erythrocyte mean corpuscular hemoglobin concentration measurement ( mass/volume) 34 g/dL 32-36 Automated erythrocyte distribution width ratio 12.8 % 10.0-14.5 Automated blood platelet count (count/volume) 324 10*3/uL 130-400 Automated blood platelet mean volume measurement 9.2 [foz_us] 7.4-10.4 Whole blood basic metabolic panel - 09/10/16 05:20 Serum or plasma sodium measurement (moles/volume) 139 mmol/L 135-145 Serum or plasma potassium measurement (moles/volume) 3.6 mmol/L 3.6-5.0 Serum or plasma chloride measurement (moles/volume) 102 mmol/L 98-107 Carbon dioxide 28 mmol/L 21-32 Serum or plasma anion gap determination (moles/volume) 9 mmol/L 5-14 Serum or plasma urea nitrogen measurement (mass/volume) 3 mg/dL 7-18 Serum or plasma creatinine measurement (mass/volume) 0.55 mg/dL 0.60-1.30 Serum or plasma urea nitrogen/creatinine mass ratio 5 NRG Serum or plasma creatinine measurement with calculation of estimated glomerular filtration rate > NRG Serum or plasma glucose measurement (mass/volume) 116 mg/dL 70-105 Serum or plasma calcium measurement (mass/volume) 8.2 mg/dL 8.5-10.1 Influenza virus A and B antigen detection - 12/22/16 16:34 FLU RESULT NEGATIVE FOR INFLUENZA A AND B ANTIGENS BY IA [facility] Bacterial urine culture - 12/21/17 16:45 Bacterial urine culture [id number] NRG COLONY COUNT >100,000/ML NR FTX;REPORTABLE SENSITIVITY REPORTED AT 1032, 2-18 [facility] URINE CULTURE RESULTS PLUS [facility] Bacterial susceptibility panel - 12/21/17 16:45 Gentamicin susceptibility test by minimum inhibitory concentration < = NRG Trimethoprim/sulfamethoxazole susceptibility test by minimum inhibitoryconcentration S NRG Ampicillin susceptibility test by minimum inhibitory concentration > = NRG Tobramycin susceptibility test by minimum inhibitory concentration < = NRG Cefazolin susceptibility test by minimum inhibitory concentration < = NRG Ceftriaxone susceptibility test by minimum inhibitory concentration <= NRG Ampicillin/sulbactam susceptibility test by minimum inhibitory concentration R NRG Piperacillin/tazobactam susceptibility test by minimum inhibitory concentration S NRG Ciprofloxacin susceptibility test by minimum inhibitory concentration <= NRG Meropenem susceptibility test by minimum inhibitory concentration < = NRG Nitrofurantoin susceptibility test by minimum inhibitory concentration <= NRG Aztreonam susceptibility test by minimum inhibitory concentration < = NRG Extended spectrum beta lactamase (ESBL) producing bacteria susceptibility test by minimum inhibitory concentration - [facility] Bacterial urine culture - 01/11/18 17:00 Bacterial urine culture [id number] NRG COLONY COUNT <10,000 NRG FTX;REPORTABLE SENSITIVITY REPORTED 01/14/18 9:45 NR FREE TEXT ENTRY 2 PLUS, NR FREE TEXT ENTRY 3 MIXED GRAM POSITIVES 10-100,000/ML [facility] Bacterial susceptibility panel - 01/11/18 17:00 Gentamicin susceptibility test by minimum inhibitory concentration R NRG Vancomycin susceptibility test by minimum inhibitory concentration 1 NRG Levofloxacin susceptibility test by minimum inhibitory concentration >= NRG Tetracycline susceptibility test by minimum inhibitory concentration >= NRG Ampicillin susceptibility test by minimum inhibitory concentration < = NRG Ciprofloxacin susceptibility test by minimum inhibitory concentration R NRG Nitrofurantoin susceptibility test by minimum inhibitory concentration <= NRG Linezolid susceptibility test by minimum inhibitory concentration 2 NRG Encounters ACCT No. Visit Date/Time Discharge Status Pt. Type Provider Facility Loc./Unit Complaint [id number] 01/11/2018 16:57:00 01/11/2018 23:59:59 CLS Outpatient LORE POWELL DO [facility] LAB URINE FREQUENCY AT NIGHT [id number] 12/21/2017 16:23:00 12/21/2017 23:59:59 CLS Outpatient LORE POWELL DO [facility] LAB N39.0 [id number] 08/21/2017 16:39:00 08/21/2017 23:59:59 CLS Outpatient MEDKALA LORE MARTÍNEZ [facility] RAD VAGINAL BLEEDING [id number] 12/22/2016 15:32:00 12/22/2016 17:35:00 DIS Emergency DESTINY KASPER [facility] ER CONGESTION;COUGH;WEAKNESS [id number] 10/20/2016 10:33:00 10/20/2016 16:00:00 DIS Outpatient PAKO CARTER MD [facility] WOUNDCARE [id number] 09/05/2016 11:05:00 09/10/2016 15:15:00 DIS Inpatient MEDKALA LORE MARTÍNEZ [facility] 4TH CYST WITH ABCESS [id number] 12/23/2014 10:19:00 12/23/2014 23:59:59 CLS Outpatient LORE POWELL DO [facility] RAD SCREENING [id number] 12/02/2013 14:28:00 12/02/2013 23:59:59 CLS Outpatient MEDKALA LORE MARTÍNEZ [facility] RAD SCREENING [id number] 12/23/2014 10:20:00 Document Registration [id number] 12/23/2014 10:19:00 Document Registration [id number] 09/09/2011 11:04:00 Document Registration [id number] 07/22/2010 10:24:00 Document Registration
[2018-02-11] MEDS ORDERED: ONDANSETRON 4 MG/2 ML (SDV) Z0FRAN ONE (10:29)
[2018-02-11 10:39] LABS: BASOPHILS % (AUTO) 0 % (0-10); EOSINOPHILS # (AUTO) 0.1 10^3/uL (0.0-0.3); EOSINOPHILS % (AUTO) 1 % (0-10); HEMATOCRIT 38 % (35-52); HEMOGLOBIN 13.2 G/DL (11.5-16.0); LYMPHOCYTES # (AUTO) 2.1 X 10^3 (1.0-4.0); LYMPHOCYTES % (AUTO) 29 % (12-44); MEAN CORPUSCULAR HEMOGLOBIN 33 PG (25-34); MEAN CORPUSCULAR HGB CONC 34 G/DL (32-36); MEAN CORPUSCULAR VOLUME 95 FL (80-99); MEAN PLATELET VOLUME 10.2 FL (7.4-10.4); MONOCYTES # (AUTO) 0.6 X 10^3 (0.0-1.0); MONOCYTES % (AUTO) 8 % (0-12); NEUTROPHILS # (AUTO) 4.3 X 10^3 (1.8-7.8); NEUTROPHILS % (AUTO) 61 % (42-75); PLATELET COUNT 229 10^3/uL (130-400); RED BLOOD COUNT 4.03 10^6/uL (4.35-5.85); RED CELL DISTRIBUTION WIDTH 13.4 % (10.0-14.5); WHITE BLOOD COUNT 7.1 10^3/uL (4.3-11.0)
[2018-02-11 10:43] LABS: PROTHROMBIN TIME PATIENT 13.3 SEC (12.2-14.7)
[2018-02-11 10:44] LABS: PARTIAL THROMBOPLASTIN TIME 24 SEC (24-35)
[2018-02-11] MEDS ORDERED: ONDANSETRON 4 MG/2 ML (SDV) Z0FRAN IVP ONE ×2 (10:45→13:00)
[2018-02-11 10:46] LABS: FIBRIN DEGRADATION PRODUCTS < 0.27 UG/ML (0.00-0.49)
[2018-02-11 10:53] LABS: ALANINE AMINOTRANSFERASE 12 U/L (0-55); ALBUMIN 4.3 GM/DL (3.2-4.5); ALKALINE PHOSPHATASE 37 U/L (40-136); BILIRUBIN,TOTAL 0.7 MG/DL (0.1-1.0); BUN/CREATININE RATIO 21; CALCIUM 9.6 MG/DL (8.5-10.1); CARBON DIOXIDE 23 MMOL/L (21-32); CHLORIDE 101 MMOL/L (98-107); GFR ESTIMATED > 60; GLUCOSE 120 MG/DL (70-105); SODIUM 135 MMOL/L (135-145); TOTAL PROTEIN 6.7 GM/DL (6.4-8.2)
--- NOTE | 2018-02-11 11:05 | Diagnostic Imaging Report ---
CLINICAL INDICATION: Patient is status post fall with right-sided weakness. EXAM: Axial CT scan of brain performed without IV contrast. COMPARISON: None. FINDINGS: There is no evidence of acute cerebral infarct, intracranial hemorrhage, or gross mass effect. The brain parenchymal volume appears appropriate for patient's age. There are focal, patchy and confluent areas of low-attenuation white matter changes seen throughout both cerebral hemispheres, likely representing chronic small vessel ischemic disease and leukoaraiosis. There is normal ellison-white matter distinction. There is no significant midline shift or herniation. There is no evidence of hydrocephalus. The basal cisterns are unremarkable. The skull, extracranial soft tissue, and orbits are unremarkable. There is minimal mucosal thickening in the right ethmoid sinus region. Temporal bones show no significant abnormality. IMPRESSION: 1: There is no definite CT evidence of interval acute cerebral infarction, intracranial hemorrhage, or mass seen. Given the diffuse low attenuation changes throughout the brain parenchyma which can obscure more subtle findings, if there is clinical concern for acute cerebral infarction, MRI of the brain would better evaluate. 2: Diffuse chronic small vessel ischemic disease and leukoaraiosis. Dictated by: Dictated on workstation # [id number]
--- NOTE | 2018-02-11 11:19 | Diagnostic Imaging Report ---
INDICATION: Shortness of breath, weakness. COMPARISON: 12/22/2016. FINDINGS: Single view of the chest demonstrates large hiatal hernia. The heart is prominent but stable. Otherwise, lungs are clear. There is no pneumothorax. Osseous structures normal. IMPRESSION: Large hiatal hernia. Dictated by: Dictated on workstation # [id number]
--- NOTE | 2018-02-11 11:21 | Diagnostic Imaging Report ---
INDICATION: Right-sided weakness, foot pain. COMPARISON: None. FINDINGS: 3 views of the right foot demonstrate nondisplaced fracture of the fifth metatarsal. There is no intra-articular involvement. No foreign body seen. IMPRESSION: Fifth metatarsal fracture. Dictated by: Dictated on workstation # [id number]
--- NOTE | 2018-02-11 11:24 | Diagnostic Imaging Report ---
INDICATION: Right ankle pain, weakness. COMPARISON: None. FINDINGS: 3 views of right ankle demonstrate no fracture or dislocation. Articular surfaces are normal. No foreign body. IMPRESSION: Negative right ankle. Dictated by: Dictated on workstation # [id number]
--- NOTE | 2018-02-11 11:25 | Diagnostic Imaging Report ---
INDICATION: Right-sided weakness, hip pain. COMPARISON: None. FINDINGS: Single view of the pelvis and 2 views of right hip demonstrate no fracture or dislocation. Articular surfaces are age-appropriate. IMPRESSION: No fracture identified. Dictated by: Dictated on workstation # [id number]
--- NOTE | 2018-02-11 12:24 | Diagnostic Imaging Report ---
PROCEDURE: CT cervical spine without contrast. TECHNIQUE: Multiple contiguous axial images were obtained through the cervical spine without the use of intravenous contrast. Sagittal and coronal reformations were then performed. INDICATION: Fall, weakness, neck pain. COMPARISON: None. FINDINGS: Alignment is normal. There is no subluxation or fracture. There is moderate degenerative disc disease and facet joint arthropathy. No osseous lesion is identified. IMPRESSION: 1. Diffuse degenerative disc disease and facet joint arthropathy. 2. No traumatic malalignment or fracture. Dictated by: Dictated on workstation # [id number]
--- NOTE | 2018-02-11 12:26 | ED General ---
General Chief Complaint: Neuro-Stroke Like Symptoms Stated Complaint: FALL Nursing Triage Note: Patient arrive to the ER via EMS secondary to a fall with complaints of right foot pain. She advises however that her foot was tingling and numb prior to falling. Nursing Sepsis Screen: No Definite Risk Source of Information: Patient, EMS, Family Exam Limitations: No Limitations History of Present Illness Date Seen by Provider: Feb 11, 2018 Time Seen by Provider: 10:10 Initial Comments This pleasant 88-year-old woman presents to the emergency room with primary complaint of right foot pain after having a fall in the home. She arrives via [facility]. She reports feeling a numbness and paresthesia in her right foot and states she thought it was "asleep". This caused her to fall and injure the right foot. The paresthesias and numbness occurred before the fall. Patient denies any injury to the head or neck. She had some right hip pain that is now gone. Family reports she had decreased responsiveness for a few minutes after the fall but there was no loss of consciousness. Patient was able to ambulate to the couch after falling. EMS reports patient initially had sinus rhythm but abruptly converted to a tachycardia with a rate in the 130s and 140s with accompanying drop in blood pressure. She then abruptly converted back into a sinus rhythm. The rhythm captured on their strip appears to be an atrial tachycardia, possibly atrial flutter. Patient denies any history of diagnosed arrhythmia but she does report having sensations of tachycardia arrhythmia from time to time. She also felt weak in the shower the other day. Patient did not strike her head and denies any head or neck injury. Dr. Powell's her primary care provider. She states he recently treated her for UTI. Allergies and Home Medications Allergies Coded Allergies: NKANo Known Allergies (Unverified Allergy, Mild, 09/23/09) Home Medications Azithromycin 500 Mg Tablet, 500 MG PO DAILY, (Reported) Patient Home Medication List Home Medication List Reviewed: Yes Constitutional: no symptoms reported EENTM: no symptoms reported Respiratory: no symptoms reported Cardiovascular: see HPI Gastrointestinal: no symptoms reported Genitourinary: no symptoms reported Musculoskeletal: see HPI Skin: no symptoms reported Psychiatric/Neurological: See HPI Hematologic/Lymphatic: No Symptoms Reported Past Sufnfwv-Vzvyfr-Wmnunv Hx Patient Social History Alcohol Use: Denies Use Recreational Drug Use: No Smoking Status: Never a Smoker Recent Foreign Travel: No Contact w/Someone Who Travel: No Recent Infectious Disease Expo: No Recent Hopitalizations: Yes (CYST/ABSCESS REMOVAL 08/2016) Physical Abuse: No Sexual Abuse: No Seasonal Allergies Seasonal Allergies: No Surgeries History of Surgeries: Yes (abscess treatment) Surgeries: Eye Surgery, Tonsillectomy Respiratory History of Respiratory Disorde: No Cardiovascular History of Cardiac Disorders: Yes Cardiac Disorders: Palpitations Neurological History of Neurological Disord: No 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 System : No Hx 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 Disorders: No Genitourinary History of Genitourinary Disor: No Gastrointestinal History of Gastrointestinal Di: Yes Gastrointestinal Disorders: Abdominal Hernia Musculoskeletal History of Musculoskeletal Dis: No Musculoskeletal Disorders: Arthritis Endocrine History of Endocrine Disorders: No HEENT History of HEENT Disorders: Yes HEENT Disorders: Cataract Cancer History of Cancer: No Psychosocial History of Psychiatric Problem: No Suicide Risk Score: 0 Blood Transfusions Adverse Reaction to a Blood Tr: No Family Medical History Family Medial History: Diabetes mellitus 19 MOTHER Physical Exam Vital Signs Vital Signs - First Documented Capillary Refill : Less Than 3 Seconds General Appearance: No Apparent Distress, WD/WN, Thin HEENT: PERRL/EOMI, Normal ENT Inspection Neck: Full Range of Motion, Normal Inspection, Non Tender, Supple Respiratory: Lungs Clear, Normal Breath Sounds, No Accessory Muscle Use, No Respiratory Distress Cardiovascular: Regular Rate, Rhythm, No Edema, No Murmur Gastrointestinal: Normal Bowel Sounds, Non Tender, Soft Extremity: Normal Capillary Refill, Normal Inspection, No Pedal Edema, Pelvis Stable, Other (tenderness to the right lateral foot and ankle) Neurologic/Psychiatric: Alert, Oriented x3, Normal Mood/Affect, No Motor Weakness, Sensory Deficit (mild numbness on the right foot), Other (subtle facial asymmetry stated as chronic) Skin: Normal Color, Warm/Dry Progress/Results/Core Measures Suspected Sepsis Recent Fever Within 48 Hours: No Infection Criteria Present: None New/Unexplained Altered Menta: No Sepsis Screen: No Definite Risk Sepsis Diagnosis: SIRS Temperature:98.4 Pulse: 72 Respiratory Rate: 14 Laboratory Tests 02/11/18 10:18: White Blood Count 7.1 Blood Pressure 167 /98 Mean: 121 Laboratory Tests 02/11/18 10:18: Creatinine 0.80, INR Comment 1.0, Platelet Count 229, Total Bilirubin 0.7 Results/Orders Lab Results Laboratory Tests Test 02/11/18 10:18 02/11/18 10:36 Range/Units White Blood Count 7.1 4.3-11.0 10^3/uL Red Blood Count 4.03 L 4.35-5.85 10^6/uL Hemoglobin 13.2 11.5-16.0 G/DL Hematocrit 38 35-52 % Mean Corpuscular Volume 95 80-99 FL Mean Corpuscular Hemoglobin 33 25-34 PG Mean Corpuscular Hemoglobin Concent 34 32-36 G/DL Red Cell Distribution Width 13.4 10.0-14.5 % Platelet Count 229 130-400 10^3/uL Mean Platelet Volume 10.2 7.4-10.4 FL Neutrophils (%) (Auto) 61 42-75 % Lymphocytes (%) (Auto) 29 12-44 % Monocytes (%) (Auto) 8 0-12 % Eosinophils (%) (Auto) 1 0-10 % Basophils (%) (Auto) 0 0-10 % Neutrophils # (Auto) 4.3 1.8-7.8 X 10^3 Lymphocytes # (Auto) 2.1 1.0-4.0 X 10^3 Monocytes # (Auto) 0.6 0.0-1.0 X 10^3 Eosinophils # (Auto) 0.1 0.0-0.3 10^3/uL Basophils # (Auto) 0.0 0.0-0.1 10^3/uL Prothrombin Time 13.3 12.2-14.7 SEC INR Comment 1.0 0.8-1.4 Activated Partial Thromboplast Time 24 24-35 SEC D-Dimer < 0.27 0.00-0.49 UG/ML Sodium Level 135 135-145 MMOL/L Potassium Level 4.0 3.6-5.0 MMOL/L Chloride Level 101 98-107 MMOL/L Carbon Dioxide Level 23 21-32 MMOL/L Anion Gap 11 5-14 MMOL/L Blood Urea Nitrogen 17 7-18 MG/DL Creatinine 0.80 0.60-1.30 MG/DL Estimat Glomerular Filtration Rate > 60 BUN/Creatinine Ratio 21 Glucose Level 120 H 70-105 MG/DL Calcium Level 9.6 8.5-10.1 MG/DL Total Bilirubin 0.7 0.1-1.0 MG/DL Aspartate Amino Transf (AST/SGOT) 16 5-34 U/L Alanine Aminotransferase (ALT/SGPT) 12 0-55 U/L Alkaline Phosphatase 37 L 40-136 U/L Troponin I < 0.30 <0.30 NG/ML Total Protein 6.7 6.4-8.2 GM/DL Albumin 4.3 3.2-4.5 GM/DL Glucometer 106 70-110 MG/DL My Orders Orders - BELA SILVEIRA MD Ekg Tracing (02/11/18 10:19) Cbc With Automated Diff (02/11/18 10:26) Protime With Inr (02/11/18 10:) Partial Thromboplastin Time (02/11/18 10:26) Comprehensive Metabolic Panel (02/11/18 10:) Fibrin Degradation Products (02/11/18 10:) Troponin I (02/11/18 10:) Ua Culture If Indicated (02/11/18 10:) Chest 1 View, Ap/Pa Only (02/11/18 10:26) Nothing By Mouth (02/11/18 Lunch) Accucheck Stat ONCE (02/11/18 10:26) Saline Lock/Iv-Start (02/11/18 10:26) Saline Lock/Iv-Start (02/11/18 10:26) Vital Signs Stroke Patient Q15M (02/11/18 10:26) Ct Head Wo-R/O Stroke (02/11/18 10:26) O2 (02/11/18 10:26) Intake & Output 06,14,22 (02/11/18 10:26) Monitor-Rhythm Ecg Trace Only (02/11/18 10:26) Dysphagia Screening Tool (02/11/18 10:26) Foot, Right, 3 View (02/11/18 10:27) Ankle, Right, 3 Views (02/11/18 10:27) Pelvis With Right Hip 2-3views (02/11/18 10:27) Ondansetron Injection (Zofran Injectio (02/11/18 10:45) Ondansetron Injection (Zofran Injectio (02/11/18 10:29) Ct Cervical Spine Wo (02/11/18 11:55) Metoprolol Succinate (Xl) Tab (Toprol Xl (02/11/18 12:30) Aspirin Tablet (Aspirin Tablet) (02/11/18 12:30) Apixaban Tablet (Eliquis Tablet) (02/11/18 12:30) Ondansetron Injection (Zofran Injectio (02/11/18 13:00) Vital Signs/I&O Vital Sign - Last 12Hours 02/11/18 02/11/18 02/11/18 02/11/18 10:09 10:09 10:09 12:58 Temp 98.4 Pulse 81 72 74 Resp 14 14 14 B/P (MAP) 167/98 167/98 (121) 149/80 Pulse Ox 98 98 98 98 O2 Delivery Room Air Room Air Room Air Capillary Refill : Less Than 3 Seconds Blood Pressure Mean: 121 Point of Care Testing Finger Stick Blood Glucose: 106 Progress Note : Progress Note Stroke activation was paged. There was concern that she may have had TIA or stroke related to the atrial tachycardia and causing the right foot numbness as well as the fall. Patient was in normal sinus rhythm on arrival. CT showed no evidence of hemorrhage or stroke. She had a brief episode of nausea and vomiting that was treated with Zofran. Imaging of the right foot demonstrated a right metatarsal fracture. A boot was applied. Dr. Stout was consulted by phone and recommended a boot with partial weightbearing with use of a walker. She can follow-up in the outpatient setting for further evaluation and treatment. Patient later complained of some neck aching and CT of the cervical spine was added. This was unremarkable. Dr. Baron was consulted for the tachycardia. He requested that she be started on Eliquis2.5 mg twice a day according to age and weight as well as Toprol-XL 25 mg. The first dose of these medications was given in the ER. Aspirin 325 mg was also administered. UA was pending at the time of admission. ECG Initial ECG Impression Date: Feb 11, 2018 Initial ECG Impression Time: 10:31 Initial ECG Rate: 79 Initial ECG Rhythm: Normal Sinus Initial ECG Intervals: Normal Initial ECG Impression: Normal Comment Normal sinus rhythm with no ST elevation or depression. No abnormal intervals or axis deviation. Departure Communication (Admissions) Time/Spoke to Admitting Phy: 11:50 Time/Spoke to Consulting Phy: 12:15 Impression Impression: Primary Impression: Atrial tachycardia Additional Impressions: Fall on same level Qualified Codes: W18.30XA - Fall on same level, unspecified, initial encounter Nondisplaced fracture of fifth right metatarsal bone Qualified Codes: S92.354A - Nondisplaced fracture of fifth metatarsal bone, right foot, initial encounter for closed fracture Nausea & vomiting Qualified Codes: R11.2 - Nausea with vomiting, unspecified Disposition: 09 ADMITTED INPATIENT Condition: Improved Departure-Patient Inst. Referrals: LORE POWELL DO (PCP/Family) Primary Care Physician BELA SILVEIRA MD Feb 11, 2018 12:26
[2018-02-11] MEDS ORDERED: ASPIRIN 325 MG (5 GR) TABLET PO ONE (12:30)
[2018-02-11] MEDS ORDERED: meTOproloL SUCCINATE 50 MG (TOPROL XL) TAB PO SCH (12:30)
[2018-02-11] MEDS ORDERED: APIXABAN 2.5 MG (ELIQUIS) TABLET PO ONE (12:30)
[2018-02-11 13:38] LABS: BILIRUBIN,URINE NEGATIVE (NEGATIVE); COLOR,URINE YELLOW; GLUCOSE, URINE (UA) NEGATIVE (NEGATIVE); KETONES,URINE 2+ (NEGATIVE); LEUKOCYTE ESTERASE ,URINE 3+ (NEGATIVE); NITRITE,URINE NEGATIVE (NEGATIVE); PH,URINE 6.5 (5-9); PROTEIN,URINE NEGATIVE (NEGATIVE); UROBILINOGEN,URINE NORMAL (NORMAL)
[2018-02-11 13:48] LABS: BACTERIA,URINE TRACE /HPF; CLARITY,URINE CLEAR
[2018-02-11] MEDS ORDERED: ACET325T49 PO (14:44)
[2018-02-11] MEDS ORDERED: MELA1TAB15 PO (14:44)
[2018-02-11] MEDS ORDERED: ONDANSETRON 4 MG/2 ML (SDV) Z0FRAN IV PRN (16:15)
[2018-02-11] MEDS ORDERED: ACETAMINOPHEN 325 MG TABLET/CAPLET (TYLENOL) PO PRN ×2 (16:15→17:15)
--- NOTE | 2018-02-11 16:16 | Consultation-Cardiology ---
HPI-Cardiology Cardiology Consultation: Date of Consultation 02/11/18 Time Seen by Provider: 15:45 Date of Admission Attending Physician Celena Mishra DO Admitting Physician Rommel Morales DO Consulting Physician AKHIL RODRIGUES MD, MA, FACP, FACC, FSCAI, CCDS HPI: Chief Complaint: Reason for consultation: PAFlutter HPI: 88 yo woman who had R foot numbness as she arose from her chair at home. She feels her foot had gone to sleep. This caused her to fall. She did not have any loss of consciousness, according to her. Family reports she was mildly confused for a few minutes. Post fall, she had pain in the R foot and was brought to the ER via ambulance. The ambulance crew and the ER physician noted A Flutter with a rapid vent response that lasted only a short while Ms Arroyo denies palp or syncope or shortness of breath or cp or ankle swelling She does not report any focal weakness at this time Review of Systems-Cardiology Review of Systems Constitutional: No malaise, No tiredness, No weight loss, No weight gain Ears/Nose/Throat: No nasal drainage, No recent hearing loss, No ulcerations Respiratory: As described under HPI Cardiovascular: As described under HPI Gastrointestinal: No constipation, No diarrhea, No nausea, No vomiting Genitourinary: No dysuria, No hematuria, No urine frequency changes Musculoskeletal: back pain (chronic) Skin: No ulcerations Psychiatric/Neurological: As described under HPI Hematologic: No bleeding abnormalities JZH-Hgtouc-Lygjln Hx Patient Social History Alcohol Use: Denies Use Recreational Drug Use: No Smoking Status: Never a Smoker Recent Foreign Travel: No Recent Infectious Disease Expo: No Physical Abuse Screen: No Sexual Abuse: No Past Medical History PMH As described under Assessment. Family Medical History Family History: Diabetes mellitus 19 MOTHER Allergies and Home Medications Allergies Coded Allergies: NKANo Known Allergies (Unverified Allergy, Mild, 09/23/09) Home Medications Acetaminophen 325 Mg Tablet, 325 MG PO Q6H PRN for PAIN-MILD, (Reported) Melatonin/Pyridoxine 1 Each Tablet, 5 MG PO HS, (Reported) Patient Home Medication List Home Medication List Reviewed: Yes Physical Exam-Cardiology Physical Exam Vital Signs/I&O Vital Sign - Last 12Hours 4/1/18 4/1/18 4/1/18 4/1/18 10:09 10:09 10:09 12:58 Temp 98.4 Pulse 81 72 74 Resp 14 14 14 B/P (MAP) 167/98 167/98 (121) 149/80 Pulse Ox 98 98 98 98 O2 Delivery Room Air Room Air Room Air 02/11/18 02/11/18 02/11/18 13:45 14:00 14:07 Pulse 68 B/P (MAP) 144/90 (108) 162/98 (119) O2 Delivery Room Air Room Air Capillary Refill : Less Than 3 Seconds Constitutional: AAO x 3, well-developed, other (thin appearing) HEENT: PERRL, EOMI, No xanthelasmas are seen Neck: No carotid bruit, carotid pulses are 2 + bilaterally, with good upstrokes Respiratory: accessory muscle use, lungs clear to auscultation Cardiovascular: regular rate-rhythm, S1 and S2, systolic murmur (soft SARAI at card base) Gastrointestinal: No tender, soft, No guarding, No rebound, audible bowel sounds Extremities: No clubbing, No cyanosis, No significant edema Neurologic/Psychiatric: oriented x 3, grossly intact, power is 5/5 both on sides Skin: No rash on exposed areas, No ulcerations on exposed areas Data Review Labs Laboratory Tests 02/11/18 10:18: White Blood Count 7.1, Red Blood Count 4.03L, Hemoglobin 13.2, Hematocrit 38, Mean Corpuscular Volume 95, Mean Corpuscular Hemoglobin 33, Mean Corpuscular Hemoglobin Concent 34, Red Cell Distribution Width 13.4, Platelet Count 229, Mean Platelet Volume 10.2, Neutrophils (%) (Auto) 61, Lymphocytes (%) (Auto) 29 , Monocytes (%) (Auto) 8, Eosinophils (%) (Auto) 1, Basophils (%) (Auto) 0, Neutrophils # (Auto) 4.3, Lymphocytes # (Auto) 2.1, Monocytes # (Auto) 0.6, Eosinophils # (Auto) 0.1, Basophils # (Auto) 0.0, Prothrombin Time 13.3, INR Comment 1.0, Activated Partial Thromboplast Time 24, D-Dimer < 0.27, Sodium Level 135, Potassium Level 4.0, Chloride Level 101, Carbon Dioxide Level 23, Anion Gap 11, Blood Urea Nitrogen 17, Creatinine 0.80, Estimat Glomerular Filtration Rate > 60, BUN/Creatinine Ratio 21, Glucose Level 120H, Calcium Level 9.6, Total Bilirubin 0.7, Aspartate Amino Transf (AST/SGOT) 16, Alanine Aminotransferase (ALT/SGPT) 12, Alkaline Phosphatase 37L, Troponin I < 0.30, Total Protein 6.7, Albumin 4.3 02/11/18 10:36: Glucometer 106 02/11/18 13:32: Urine Color YELLOW, Urine Clarity CLEAR, Urine pH 6.5, Urine Specific [place] 1.015L, Urine Protein NEGATIVE, Urine Glucose (UA) NEGATIVE, Urine Ketones 2+H, Urine Nitrite NEGATIVE, Urine Bilirubin NEGATIVE, Urine Urobilinogen NORMAL, Urine Leukocyte Esterase 3+H, Urine RBC (Auto) NEGATIVE, Urine RBC NONE, Urine WBC 10-25H, Urine Squamous Epithelial Cells 2-5, Urine Crystals NONE, Urine Bacteria TRACE, Urine Casts PRESENT, Urine Hyaline Casts 2-5H, Urine Mucus NEGATIVE, Urine Culture Indicated YES Laboratory Tests 02/11/18 10:18 A/P-Cardiology Assessment/Admission Diagnosis Paroxysmal atrial flutter, first documented on tele strips on 02/11/18 Probable TIA on 02/11/18, resulting in transient R foot numbness/weakness leading to fall and fracture of the R 5th metatarsal. This is being managed by the [facility] UTI is suggested on the UA of 02/11/18. Managed by the [facility] Discussion and Recomendations * Apixaban (adjusted for age and BMI) for stroke prophylaxis * BB for vent rate control during A Fl * Eval for hyperthyroidism * Eval of cardiomyopathy * Monitor labs * I had a detailed discussion with her and her fam and explained the rationale, pros and cons of current cardiac regimen Clinical Quality Measures DVT/VTE Risk/Contraindication: Risk Factor Score Per Nursin RFS Level Per Nursing on Admit: 2=Moderate AKHIL RODRIGUES MD FACP FAC CCDS Feb 11, 2018 16:16
[2018-02-11] MEDS ORDERED: amLODIPine 5 MG (NORVASC) TAB PO PRN (17:30)
[2018-02-11] MEDS ORDERED: NON-FORMULARY MEDICATION 1 EA EA (Melatonin/Pyridoxine (Melatonin 5 mg Tablet) 5 MG) PO SCH (21:00)
[2018-02-11] MEDS ORDERED: MELATONIN 3 MG TABLET ONE (21:06)
[2018-02-11] MEDS: APIXABAN 2.5 MG (ELIQUIS) TABLET PO SCH (21:12)
[2018-02-12] VITALS (16 sets, daily range): BP systolic 111–168; BP diastolic 55–102
[2018-02-12 04:02] LABS: BASOPHILS % (AUTO) 0 % (0-10); EOSINOPHILS # (AUTO) 0.1 10^3/uL (0.0-0.3); EOSINOPHILS % (AUTO) 1 % (0-10); HEMATOCRIT 37 % (35-52); HEMOGLOBIN 12.7 G/DL (11.5-16.0); LYMPHOCYTES # (AUTO) 1.5 X 10^3 (1.0-4.0); LYMPHOCYTES % (AUTO) 21 % (12-44); MEAN CORPUSCULAR HEMOGLOBIN 33 PG (25-34); MEAN CORPUSCULAR HGB CONC 34 G/DL (32-36); MEAN CORPUSCULAR VOLUME 95 FL (80-99); MEAN PLATELET VOLUME 10.1 FL (7.4-10.4); MONOCYTES # (AUTO) 0.7 X 10^3 (0.0-1.0); MONOCYTES % (AUTO) 10 % (0-12); NEUTROPHILS # (AUTO) 4.8 X 10^3 (1.8-7.8); NEUTROPHILS % (AUTO) 68 % (42-75); PLATELET COUNT 228 10^3/uL (130-400); RED BLOOD COUNT 3.87 10^6/uL (4.35-5.85); RED CELL DISTRIBUTION WIDTH 13.4 % (10.0-14.5); WHITE BLOOD COUNT 7.1 10^3/uL (4.3-11.0)
[2018-02-12 04:31] LABS: ALANINE AMINOTRANSFERASE 12 U/L (0-55); ALKALINE PHOSPHATASE 34 U/L (40-136); BILIRUBIN,TOTAL 0.7 MG/DL (0.1-1.0); BUN/CREATININE RATIO 20; CALCIUM 9.1 MG/DL (8.5-10.1); CARBON DIOXIDE 26 MMOL/L (21-32); CHLORIDE 100 MMOL/L (98-107); CREATININE SERUM 0.69 MG/DL (0.60-1.30); GFR ESTIMATED > 60; GLUCOSE 115 MG/DL (70-105); MAGNESIUM 2.2 MG/DL (1.8-2.4); POTASSIUM 3.8 MMOL/L (3.6-5.0); SODIUM 134 MMOL/L (135-145); TOTAL PROTEIN 6.1 GM/DL (6.4-8.2)
--- NOTE | 2018-02-12 07:55 | History & Physicial ---
History of Present Illness History of Present Illness Reason for visit/HPI patient was sent home on the couch. Patient got up. Right foot fell asleep. Patient walked and fell down and hurt the right foot. Patient states she passed out. Patient speech slurry a little. Patient dizzy after the fall. Patient on heart monitor showed a flutter. Patient admitted to intensive care unit Date of Admission Feb 11, 2018 at 12:22 Time Seen by Provider: 07:50 I consulted on this patient on 02/12/18 07:50 Attending Physician Celena Mishra DO Admitting Physician Rommel Morales DO Consult Allergies and Home Medications Allergies Coded Allergies: NKANo Known Allergies (Unverified Allergy, Mild, 09/23/09) Home Medications Acetaminophen 325 Mg Tablet, 325 MG PO Q6H PRN for PAIN-MILD, (Reported) Melatonin/Pyridoxine 1 Each Tablet, 5 MG PO HS, (Reported) Patient Home Medication List Home Medication List Reviewed: Yes Past Qpckgob-Eepebf-Kvqlgr Hx Patient Social History Marrital Status: Employed/Student: unemployed Alcohol Use: Denies Use Recreational Drug Use: No Smoking Status: Never a Smoker Physical Abuse Screen: No Sexual Abuse: No Recent Foreign Travel: No Contact w/other who traveled: No Recent Hopitalizations: Yes (CYST/ABSCESS REMOVAL 08/2016) Recent Infectious Disease Expo: No Seasonal Allergies Seasonal Allergies: No Surgeries Yes (abscess treatment) Eye Surgery, Tonsillectomy Respiratory No Cardiovascular Yes Palpitations Neurological No 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 System : No Hx 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 Disorders: No Genitourinary No Gastrointestinal Yes Abdominal Hernia Musculoskeletal No Arthritis Endocrine History of Endocrine Disorders: No HEENT History of HEENT Disorders: Yes HEENT Disorders: Cataract Cancer No Psychosocial History of Psychiatric Problem: No Integumentary History of Skin or Integumenta: No Blood Transfusions History of Blood Disorders: No Adverse Reaction to a Blood Tr: No Family Medical History Family Hx: Diabetes mellitus 19 MOTHER Constitutional: no symptoms reported EENTM: no symptoms reported Cardiovascular: no symptoms reported, other (EKG showed atrial flutter, patient knows symptoms) Gastrointestinal: no symptoms reported Genitourinary: no symptoms reported Physical Exam Vital Signs Vital Signs - First Documented Capillary Refill : Less Than 3 SecondsLess Than 3 Seconds General Appearance: No Apparent Distress, Thin Eyes: Bilateral Eye Normal Inspection HEENT: Normal ENT Inspection Neck: Full Range of Motion, Normal Inspection Respiratory: Chest Non Tender, Lungs Clear, Normal Breath Sounds, No Accessory Muscle Use, No Respiratory Distress Cardiovascular: Regular Rate, Rhythm, No Murmur Gastrointestinal: Non Tender, Soft Assessment/Plan Assessment and Plan atrial tachycardia versus a flutter. fall. Nondisplaced fracture of fifth metatarsal. nausea and vomiting. Problems: Admission Diagnosis Admission Status: Observation Clinical Quality Measures DVT/VTE Risk/Contraindication: Risk Factor Score Per Nursin RFS Level Per Nursing on Admit: 2=Moderate ROMMEL MORALES DO Feb 12, 2018 07:55
[2018-02-12] MEDS: APIXABAN 2.5 MG (ELIQUIS) TABLET PO SCH (08:28)
[2018-02-12] MEDS ORDERED: ASPIRIN 81 MG CHEW (CHILDREN'S ASA) PO SCH (09:00)
--- NOTE | 2018-02-12 09:24 | Progress Note-Cardiology ---
Cardiology SOAP Progress Note Subjective: No cp or palp or syncope or shortness of breath Objective: I&O/Vital Signs Vital Sign - Last 12Hours 02/11/18 02/11/18 02/11/18 02/12/18 22:00 23:00 23:20 00:00 Pulse 59 61 58 B/P (MAP) 157/79 (105) 149/78 (101) 122/71 (88) Pulse Ox 97 O2 Delivery Room Air Room Air Room Air Room Air 02/12/18 02/12/18 02/12/18 02/12/18 01:00 01:00 02:00 03:30 Temp 97.6 Pulse 56 56 60 56 B/P (MAP) 120/63 (82) 146/86 (106) 132/71 (91) Pulse Ox 92 O2 Delivery Room Air Room Air Room Air 02/12/18 02/12/18 02/12/18 02/12/18 03:30 04:00 05:00 06:00 Pulse 58 63 56 Resp 15 18 17 B/P (MAP) 111/55 (73) 111/55 (73) 124/66 (85) Pulse Ox 92 O2 Delivery Room Air Room Air Room Air Room Air 02/12/18 02/12/18 02/12/18 02/12/18 07:00 08:09 08:15 08:15 Temp 98.5 Pulse 57 61 Resp 12 B/P (MAP) 119/60 (79) Pulse Ox 96 O2 Delivery Room Air Room Air Room Air Intake and Output 02/12/18 00:00 Intake Total 120 ml Output Total 350 ml Balance -230 ml Weight (Pounds): 116 Weight (Ounces): 1.2 Weight (Calculated Kilograms): 52.852353 Constitutional: AAO x 3, well-developed, other (thin appearing) Respiratory: accessory muscle use, lungs clear to auscultation Cardiovascular: regular rate-rhythm, S1 and S2, systolic murmur (soft SARAI at card base) Gastrointestional: No tender, soft, No guarding, No rebound, audible bowel sounds Extremities: No clubbing, No cyanosis, No significant edema Neurologic/Psychiatric: oriented x 3, grossly intact, power is 5/5 both on sides Skin: No rash on exposed areas, No ulcerations on exposed areas Results/Procedures: Labs Laboratory Tests 02/11/18 10:18: White Blood Count 7.1, Red Blood Count 4.03L, Hemoglobin 13.2, Hematocrit 38, Mean Corpuscular Volume 95, Mean Corpuscular Hemoglobin 33, Mean Corpuscular Hemoglobin Concent 34, Red Cell Distribution Width 13.4, Platelet Count 229, Mean Platelet Volume 10.2, Neutrophils (%) (Auto) 61, Lymphocytes (%) (Auto) 29 , Monocytes (%) (Auto) 8, Eosinophils (%) (Auto) 1, Basophils (%) (Auto) 0, Neutrophils # (Auto) 4.3, Lymphocytes # (Auto) 2.1, Monocytes # (Auto) 0.6, Eosinophils # (Auto) 0.1, Basophils # (Auto) 0.0, Prothrombin Time 13.3, INR Comment 1.0, Activated Partial Thromboplast Time 24, D-Dimer < 0.27, Sodium Level 135, Potassium Level 4.0, Chloride Level 101, Carbon Dioxide Level 23, Anion Gap 11, Blood Urea Nitrogen 17, Creatinine 0.80, Estimat Glomerular Filtration Rate > 60, BUN/Creatinine Ratio 21, Glucose Level 120H, Calcium Level 9.6, Total Bilirubin 0.7, Aspartate Amino Transf (AST/SGOT) 16, Alanine Aminotransferase (ALT/SGPT) 12, Alkaline Phosphatase 37L, Troponin I < 0.30, Total Protein 6.7, Albumin 4.3 02/11/18 10:36: Glucometer 106 02/11/18 13:32: Urine Color YELLOW, Urine Clarity CLEAR, Urine pH 6.5, Urine Specific [place] 1.015L, Urine Protein NEGATIVE, Urine Glucose (UA) NEGATIVE, Urine Ketones 2+H, Urine Nitrite NEGATIVE, Urine Bilirubin NEGATIVE, Urine Urobilinogen NORMAL, Urine Leukocyte Esterase 3+H, Urine RBC (Auto) NEGATIVE, Urine RBC NONE, Urine WBC 10-25H, Urine Squamous Epithelial Cells 2-5, Urine Crystals NONE, Urine Bacteria TRACE, Urine Casts PRESENT, Urine Hyaline Casts 2-5H, Urine Mucus NEGATIVE, Urine Culture Indicated YES 02/12/18 03:25: White Blood Count 7.1, Red Blood Count 3.87L, Hemoglobin 12.7, Hematocrit 37, Mean Corpuscular Volume 95, Mean Corpuscular Hemoglobin 33, Mean Corpuscular Hemoglobin Concent 34, Red Cell Distribution Width 13.4, Platelet Count 228, Mean Platelet Volume 10.1, Neutrophils (%) (Auto) 68, Lymphocytes (%) (Auto) 21 , Monocytes (%) (Auto) 10, Eosinophils (%) (Auto) 1, Basophils (%) (Auto) 0, Neutrophils # (Auto) 4.8, Lymphocytes # (Auto) 1.5, Monocytes # (Auto) 0.7, Eosinophils # (Auto) 0.1, Basophils # (Auto) 0.0, Sodium Level 134L, Potassium Level 3.8, Chloride Level 100, Carbon Dioxide Level 26, Anion Gap 8, Blood Urea Nitrogen 14, Creatinine 0.69, Estimat Glomerular Filtration Rate > 60, BUN/ Creatinine Ratio 20, Glucose Level 115H, Calcium Level 9.1, Total Bilirubin 0.7 , Aspartate Amino Transf (AST/SGOT) 15, Alanine Aminotransferase (ALT/SGPT) 12, Alkaline Phosphatase 34L, Total Protein 6.1L, Albumin 4.0, Magnesium Level 2.2, Thyroid Stimulating Hormone (TSH) 0.73 Laboratory Tests 02/11/18 10:18 02/12/18 03:25 A/P: Assessment: Paroxysmal atrial flutter, first documented on tele strips on 02/11/18 Probable TIA on 02/11/18, resulting in transient R foot numbness/weakness leading to fall and fracture of the R 5th metatarsal. This is being managed by the Medical S[facility] UTI is suggested on the UA of 02/11/18. Managed by the Med S[facility] TSH normal (0.73) on lab work of 02/12/18 Plan: * Apixaban (adjusted for age and BMI) for stroke prophylaxis * BB for vent rate control during A Fl * Echo and carotid u/s today * I discussed her case with Dr Morales * Potential d/c today if studies negative AKHIL RODRIGUES MD [facility] CCDS Feb 12, 2018 09:24
[2018-02-12] MEDS ORDERED: CATHETER FLUSH 10 ML SYR IV PRN (09:30)
[2018-02-12] MEDS ORDERED: DIAZEPAM 5 MG (VALIUM) TABLET PO NR (12:30)
--- NOTE | 2018-02-12 14:05 | Diagnostic Imaging Report ---
PROCEDURE: MR imaging of the brain without contrast. TECHNIQUE: Multiplanar, multisequence MR imaging of the brain was performed without contrast. INDICATION: Recent fall with head trauma. FINDINGS: There is prominence of the ventricles and sulci. There is moderate abnormal increased T2 signal intensity within the periventricular white matter and subcortical white matter bilaterally. There are no areas of diffusion restriction appreciated to suggest an acute CVA. There is no hydrocephalus. There is no midline shift. There is no intracranial mass, hemorrhage, or extra-axial fluid collection. The frontal, ethmoid, sphenoid, and maxillary sinuses are clear. Mastoid air cells are clear. The globes and intra-orbital structures are unremarkable. The central arterial and dural venous sinus flow voids are preserved. IMPRESSION: Atrophy and moderately severe chronic microvascular ischemic disease without evidence of diffusion restriction to suggest an acute CVA. Otherwise unremarkable MRI brain. Dictated by: Dictated on workstation # [id number]
--- NOTE | 2018-02-12 14:38 | Diagnostic Imaging Report ---
PROCEDURE: US carotid duplex, bilateral. TECHNIQUE: Multiple real-time grayscale images were obtained over the carotid arteries in various projections, bilaterally. Additional duplex Doppler and color Doppler images were also obtained. INDICATION: Hypertension. FINDINGS: There are no focally elevated velocities in either internal carotid artery. The ICA/CCA ratios are within normal limits, bilaterally. There is antegrade flow in the vertebral arteries, bilaterally. Grayscale images demonstrate minimal carotid plaque, bilaterally. IMPRESSION: Minimal bilateral carotid plaque however spectral analysis shows no evidence of a hemodynamically significant stenosis in either internal carotid artery. Parameters based on the consensus panel Snow-[employer] and Doppler ultrasound criteria published September 2003, Radiology, Volume 229. DOPPLER (peak systolic velocity M/S Right Left CCA .47 .56 ICA Proximal .45 .44 ICA Mid .58 .63 ICA Distal .35 .90 RATIO 1.2 1.6 ECA 82.5 91.5 VERT 54.5 47.5 Dictated by: Dictated on workstation # [id number]
[2018-02-12] MEDS ORDERED: METO-387 PO (15:38)
[2018-02-12] MEDS ORDERED: APIX2.5T PO (15:38)
[2018-02-12] MEDS ORDERED: MELATONIN 3 MG TABLET PO SCH (21:00)
--- NOTE | 2018-02-13 06:54 | Clinic Account Progress/Dx ---
Clinic Account Progress/Dx DIAGNOSIS: Time Seen by Provider: 06:55 A. fib flutter with RVR. Fracture of right fifth metatarsal. UTI. Hiatal hernia. Fall. LORE POWELL DO Feb 13, 2018 06:54
== END 2018-02-12 15:22 | disposition home or self-care (01) ==
LOC: EDUNIT# 10:09 → ER 10:10 → UNDOADMOB 12:22 → ICU 12:22 → UNDODISOB 02-12 15:55
PROVIDERS: ADMIT Internal Medicine; ATTEND Internal Medicine
DX: I48.92 Unspecified atrial flutter (principal); N39.0 Urinary tract infection, site not specified; S92.354A Nondisplaced fracture of fifth metatarsal bone, right foot, initial encounter for closed fracture; W19.XXXA Unspecified fall, initial encounter; K44.9 Diaphragmatic hernia without obstruction or gangrene
CPT/HCPCS: 36415; 70450; 70551; 71045; 72125; 73610; 73630; 80053; 81000; 82962; 83735; 84443; 84484; 85025; 85379; 85610; 85730; 87088; 93005; 93041; 93306; 93880

== ENCOUNTER → 2018-03-08 | Outpatient (CLI) | payer MEDICARE ==
[~2018-03-08] MED LIST changes: +ACET325T49 PO; +APIX2.5T PO; +MELA1TAB15 PO; +METO-387 PO
--- NOTE | 2018-03-08 17:07 | Diagnostic Imaging Report ---
INDICATION: Fifth metatarsal fracture. Follow-up. COMPARISON: 02/11/2018. FINDINGS: Three radiographic views of the right foot were obtained. Intra-articular fracture of the fifth metatarsal consistent with avulsion fracture is again identified. Since the previous exam, there has been interval increase in mild displacement measured at approximately 3-4 mm. There is no appreciable surrounding callus formation or periosteal reaction to suggest significant interval healing. No new fracture or dislocation of the right foot is identified. Joint spaces are maintained. No unexpected radiopaque foreign bodies are seen. IMPRESSION: 1. Interval development of slight displacement of fifth metatarsal fracture fragments as described above. No radiographic evidence of significant interval healing. Dictated by: Dictated on workstation # [id number]
== END ==
LOC: RAD 16:17
PROVIDERS: ATTEND Family Medicine
DX: S92.351A Displaced fracture of fifth metatarsal bone, right foot, initial encounter for closed fracture (principal)
CPT/HCPCS: 73630

== ENCOUNTER → 2018-03-20 | Outpatient (CLI) | payer MEDICARE ==
[~2018-03-20] VITALS: Ht 162.6 cm; Wt 61.2 kg
[~2018-03-20] MED LIST changes: +CATHETER FLUSH 10 ML SYR IV PRN; +REGADENOSON 0.4 MG/5 ML SYR (LEXISCAN) IV ONE
[2018-03-20 09:34] VITALS: BP 182/85
[2018-03-20 09:40] VITALS: BP 145/81
--- NOTE | 2018-03-21 13:39 | STRESS TEST ---
DATE OF SERVICE: 03/20/2018 PROCEDURE: Resting and post regadenoson technetium-99m Tetrofosmin SPECT CT imaging. ORDERING PHYSICIAN: Amanda Jimenez APRN PRIMARY PHYSICIAN: Dr. Morales. OTHER PHYSICIAN: Dr. Baron. CLINICAL DIAGNOSES: Paroxysmal atrial fibrillation, shortness of breath. Baseline images were carried out after injection of 10.53 mCi of technetium-99m Tetrofosmin. This was followed by 0.4 mg regadenoson and 27.6 mCi of technetium-99m Tetrofosmin for stress imaging. The electrocardiogram showed sinus rhythm with premature atrial contractions. The electrocardiogram did not change significantly with regadenoson infusion. The patient tolerated the procedure well. Review of images at rest and following stress does not indicate any significant perfusion defects consistent with significant myocardial ischemia or infarction. Gated images showed normal global left ventricular systolic function with normal regional wall motion. Left ventricular ejection fraction is calculated to be 80%. Left ventricular end diastolic volume is 23 mL. TID is absent (1.01). CONCLUSIONS: 1. No evidence of any significant myocardial ischemia or infarction of the study. 2. Normal regional wall motion. 3. Normal global left ventricular systolic function with a calculated ejection fraction of 80%. Job ID: [id number] DocumentID: [id number] Dictated Date: 03/21/2018 08:23:34 Mending Carrier Date: 03/21/2018 13:38:26 Dictated By: AKHIL BARON MD, MA, FACP, FACC,
== END ==
LOC: CARD 07:42
PROVIDERS: ATTEND Nurse Practitioner Family
DX: I48.0 Paroxysmal atrial fibrillation (principal); I08.1 Rheumatic disorders of both mitral and tricuspid valves; Z79.01 Long term (current) use of anticoagulants
CPT/HCPCS: 78452; 93017

== ENCOUNTER 2018-03-30 11:11 | Outpatient (RCR) | payer MEDICARE ==
--- NOTE | 2018-03-29 17:18 | Diagnostic Imaging Report ---
INDICATION: Follow-up fracture. COMPARISON: 03/08/2018. FINDINGS: Three views of the right foot are obtained. There has been no significant interval change in alignment or position of the intra-articular fracture through the proximal fifth metatarsal. Fracture line may be slightly less lucent today likely due to some mild increase in callus. No new abnormality is demonstrated. IMPRESSION: No interval change in alignment of the intra-articular proximal fifth metatarsal fracture. There may be some slight interval increase in callus since the prior exam. Otherwise, no interval change. Dictated by: Dictated on workstation # [id number]
[~2018-03-30 11:11] MED LIST changes: -CATHETER FLUSH 10 ML SYR IV PRN; -REGADENOSON 0.4 MG/5 ML SYR (LEXISCAN) IV ONE
== END 2018-06-27 | disposition home or self-care (01) ==
LOC: RAD 11:11
PROVIDERS: ATTEND Family Medicine
DX: S92.351D Displaced fracture of fifth metatarsal bone, right foot, subsequent encounter for fracture with routine healing (principal); R19.7 Diarrhea, unspecified
CPT/HCPCS: 73630; 87324; 87449

== ENCOUNTER → 2018-04-18 | Outpatient (CLI) | payer MEDICARE ==
--- NOTE | 2018-04-18 17:38 | Diagnostic Imaging Report ---
INDICATION: Followup right foot fracture. COMPARISON: 03/29/18 FINDINGS: Three views of the right foot demonstrate stable well aligned proximal fifth metatarsal fracture. The fracture site is less apparent indicating healing. There is no new fracture or foreign body. IMPRESSION: Healing well aligned proximal fifth metatarsal fracture. Dictated by: Dictated on workstation # [id number]
== END ==
LOC: RAD 16:54
PROVIDERS: ATTEND Family Medicine
DX: S92.351D Displaced fracture of fifth metatarsal bone, right foot, subsequent encounter for fracture with routine healing (principal)
CPT/HCPCS: 73630

== ENCOUNTER → 2018-05-19 | Outpatient (CLI) | payer MEDICARE | PROVIDERS: ATTEND Family Medicine | DX: K63.1 Perforation of intestine (nontraumatic) (principal) | CPT/HCPCS: 87324; 87449 ==

== ENCOUNTER → 2018-06-30 | Outpatient (CLI) | payer MEDICARE | PROVIDERS: ATTEND Family Medicine | DX: R19.7 Diarrhea, unspecified (principal) | CPT/HCPCS: 87045; 87046; 87324; 87449; 87493 ==

== ENCOUNTER → 2018-07-18 | Outpatient (CLI) | payer MEDICARE ==
--- NOTE | 2018-07-18 18:23 | Diagnostic Imaging Report ---
INDICATION: Low back pain. COMPARISON: None. FINDINGS: Three views of the lumbar column demonstrate moderate to severe diffuse degenerative disc disease and facet joint arthropathy. There is mild lumbar scoliosis. No obvious fracture or traumatic malalignment is seen. There is no osseous lesion. IMPRESSION: Diffuse degenerative changes. Dictated by: Dictated on workstation # [id number]
== END ==
LOC: RAD 17:37
PROVIDERS: ATTEND Family Medicine
DX: M47.816 Spondylosis without myelopathy or radiculopathy, lumbar region (principal)
CPT/HCPCS: 72100

== ENCOUNTER → 2018-09-07 | Outpatient (CLI) | payer MEDICARE ==
--- NOTE | 2018-09-07 12:03 | Diagnostic Imaging Report ---
INDICATION: Right hand pain and swelling. COMPARISON: None FINDINGS: 3 radiographic views of the right hand were obtained. Lateral view demonstrates mild lateral subluxation of the first proximal phalanx in respect to the first metacarpal. No underlying acute osseous abnormality is seen. There are also moderate osteoarthritic changes involving the interphalangeal joints, greatest at the second distal interphalangeal joint where there are large osteophyte formations and angulation at the joint space, projecting laterally. There is chronic appearing defect within the medial base of the third proximal phalanx as well. There is no evidence of acute fracture or dislocation of the right hand. Joint spaces are otherwise maintained. No unexpected radiopaque foreign bodies are seen. IMPRESSION: 1. Moderate osteoarthritic changes, greatest involving the second distal interphalangeal joint space. 2. Probable chronic subluxation at the first metacarpophalangeal joint space. 3. No definite acute fracture or dislocation. Dictated by: Dictated on workstation # [id number]
== END ==
LOC: RAD 11:12
PROVIDERS: ATTEND Family Medicine
DX: M19.041 Primary osteoarthritis, right hand (principal)
CPT/HCPCS: 73130

== ENCOUNTER 2019-01-23 16:27 | Inpatient (IN) | payer MEDICARE, MEDICAID ==
[~2019-01-23] VITALS: Ht 165.1 cm; Wt 58.7 kg
--- OUTSIDE RECORDS SUMMARY | 2019-01-23 16:37 | XMS REPORT | Continuity of Care Document ---
Author Author [facility] Organization [facility] Address Unknown Phone Unavailable Allergies Active Description [...] UNSTEADINESS ON FEET 09/10/2016 ANDRE MARTÍNEZ, LORE Peerz Ot R33.9 RETENTION OF URINE, UNSPECIFIED 10/20/2016 [...] OTH SCREEN MAMMO-MALIGN NEOPLASM OF ARISTEO 12/22/2016 PPAALENDER DOLORE Ot V76.12 OTH SCREEN MAMMO-MALIGN NEOPLASM OF ARISTEO 12/23/2016 DESTINY KASPER Ot J40 BRONCHITIS, NOT SPECIFIED ACUTE OR CH 12/23/2016 DESTINY KASPER JENNIFER Ot R05 COUGH 08/22/2017 GELLENDER DO, LORE Perez Ot N85.8 OTHER SPECIFIED NONINFLAMMATORY DISORDER 08/22/2017 GELLENDER DO, LORE Perez Ot N95.0 POSTMENOPAUSAL BLEEDING 09/12/2017 GELLENDER DO, LORE A Ot N85.8 OTHER SPECIFIED NONINFLAMMATORY DISORDER 09/12/2017 GELLENDER DO, LORE A Ot N95.0 POSTMENOPAUSAL BLEEDING 12/22/2017 GELLENDER DO, LORE Perez Ot N39.0 URINARY TRACT INFECTION, SITE NOT SPECIF 12/22/2017 GELLENDER DO, LORE Perez Ot N39.0 URINARY TRACT INFECTION, SITE NOT SPECIF 01/12/2018 GELLENDER DO, LORE Perez Ot R35.0 FREQUENCY OF MICTURITION 01/16/2018 GELLENDER DO, LORE Perez Ot N39.0 URINARY TRACT INFECTION, SITE NOT SPECIF 01/18/2018 GELLENDER DO, LORE Perez Ot R35.0 FREQUENCY OF MICTURITION 02/12/2018 CAVAZOS DO, JOVANI Ot I48.92 UNSPECIFIED ATRIAL FLUTTER 02/12/2018 CAVAZOS DO, JOVANI Ot K44.9 DIAPHRAGMATIC HERNIA WITHOUT OBSTRUCTION 02/12/2018 CAVAZOS DO, JOVANI Ot N39.0 URINARY TRACT INFECTION, SITE NOT SPECIF 02/12/2018 CAVAZOS DO, JOVANI Ot S92.354A NONDISP FX OF FIFTH METATARSAL BONE, RIG 02/12/2018 CAVAZOS DO, JOVANI Ot W19.XXXA UNSPECIFIED FALL, INITIAL ENCOUNTER 02/12/2018 CAVAZOS DO, JOVANI Ot I48.92 UNSPECIFIED ATRIAL FLUTTER 02/12/2018 CAVAZOS DO, JOVANI Ot K44.9 DIAPHRAGMATIC HERNIA WITHOUT OBSTRUCTION 02/12/2018 CAVAZOS DO, JOVANI Ot N39.0 URINARY TRACT INFECTION, SITE NOT SPECIF 02/12/2018 CAVAZOS DO, JOVANI Ot S92.354A NONDISP FX OF FIFTH METATARSAL BONE, RIG 02/12/2018 CAVAZOS DO, JOVANI Ot W19.XXXA UNSPECIFIED FALL, INITIAL ENCOUNTER 03/09/2018 GELLENDER DO, LORE Ana Ot S92.351A DISP FX OF FIFTH METATARSAL BONE, RIGHT 03/21/2018 MECCA FRANCIS DIRECTOR OF STRATEGY & MOBILE Ot I08.1 RHEUMATIC DISORDERS OF BOTH MITRAL AND T 03/21/2018 MECCA FRANCIS DIRECTOR OF STRATEGY & MOBILE Ot I48.0 PAROXYSMAL ATRIAL FIBRILLATION 03/21/2018 MECCA FRANCIS DIRECTOR OF STRATEGY & MOBILE Ot Z79.01 [facility] (CURRENT) USE OF ANTICOAGULANT 03/28/2018 GELLENDER DO, LORE Perez Ot S92.351A DISP FX OF FIFTH METATARSAL BONE, RIGHT 04/11/2018 MECCA FRANCIS DIRECTOR OF STRATEGY & MOBILE Ot I08.1 RHEUMATIC DISORDERS OF BOTH MITRAL AND T 04/11/2018 BAIMECCA LEWIS DIRECTOR OF STRATEGY & MOBILE Ot I48.0 PAROXYSMAL ATRIAL FIBRILLATION 04/11/2018 MECCA FRANCIS DIRECTOR OF STRATEGY & MOBILE Ot Z79.01 [facility] (CURRENT) USE OF ANTICOAGULANT 04/19/2018 GELLENDER DO, LORE Perez Ot S92.351D DISP FX OF 5TH METATARSAL BONE, R FT, 7T 04/25/2018 GELLENDER DO, LORE Perez Ot R19.7 DIARRHEA, UNSPECIFIED 04/25/2018 GELLENDER DO, LORE Perez Ot S92.351D DISP FX OF 5TH METATARSAL BONE, R FT, 7T 05/09/2018 GELLENDER DO, LORE Perez Ot S92.351D DISP FX OF 5TH METATARSAL BONE, R FT, 7T 05/15/2018 GELLENDER DO, LORE Perez Ot R19.7 DIARRHEA, UNSPECIFIED 05/15/2018 GELLENDER DO, LORE Perez Ot S92.351D DISP FX OF 5TH METATARSAL BONE, R FT, 7T 05/23/2018 GELLENDER DO, LORE Perez Ot K63.1 PERFORATION OF INTESTINE (NONTRAUMATIC) 06/08/2018 GELLENDER DO, LORE Perez Ot K63.1 PERFORATION OF INTESTINE (NONTRAUMATIC) 06/27/2018 GELLENDER DO, LORE Perez Ot R19.7 DIARRHEA, UNSPECIFIED 06/27/2018 GELLENDER DO, LORE Perez Ot S92.351D DISP FX OF 5TH METATARSAL BONE, R FT, 7T 07/03/2018 GELLENDER DO, LORE Perez Ot R19.7 DIARRHEA, UNSPECIFIED 07/03/2018 GELLENDER DO, LORE Perez Ot R19.7 DIARRHEA, UNSPECIFIED 07/19/2018 GELLENDER DO, LORE Perez Ot M47.816 SPONDYLOSIS W/O MYELOPATHY OR RADICULOPA 08/02/2018 [facility] Perez Ot R19.7 DIARRHEA, UNSPECIFIED 08/03/2018 [facility] LORE Perez Ot R35.0 FREQUENCY OF MICTURITION 08/10/2018 [facility].816 SPONDYLOSIS W/O MYELOPATHY OR RADICULOPA 08/21/2018 [facility], LORE Perez Ot K63.1 PERFORATION OF INTESTINE (NONTRAUMATIC) 08/21/2018 [facility], LORE Perez Ot V76.12 OTH SCREEN MAMMO-MALIGN NEOPLASM OF ARISTEO 08/21/2018 GELLENDER , LORE Perez Ot V76.12 OTH SCREEN MAMMO-MALIGN NEOPLASM OF ARISTEO 08/21/2018 [facility], LORE Perez Ot N85.8 OTHER SPECIFIED NONINFLAMMATORY DISORDER 08/21/2018 [facility] N95.0 POSTMENOPAUSAL BLEEDING 08/21/2018 [facility] N39.0 URINARY TRACT INFECTION, SITE NOT SPECIF 08/21/2018 [facility] R35.0 FREQUENCY OF MICTURITION 08/21/2018 MECCA FRANCISP Ot I08.1 RHEUMATIC DISORDERS OF BOTH MITRAL AND T 08/21/2018 MECCA FRANCIS DIRECTOR OF STRATEGY & MOBILE Ot I48.0 PAROXYSMAL ATRIAL FIBRILLATION 08/21/2018 MECCA FRANCIS DIRECTOR OF STRATEGY & MOBILE Ot Z79.01 [facility] (CURRENT) USE OF ANTICOAGULANT 08/21/2018 [facility] LORE Ot S92.351A DISP FX OF FIFTH METATARSAL BONE, RIGHT 08/21/2018 [facility] S92.351D DISP FX OF 5TH METATARSAL BONE, R FT, 7T 08/21/2018 [facility] K63.1 PERFORATION OF INTESTINE (NONTRAUMATIC) 08/21/2018 Ot R19.7 DIARRHEA, UNSPECIFIED 08/21/2018 Ot S92.351D DISP FX OF 5TH METATARSAL BONE, R FT, 7T 08/21/2018 [facility] Ot R19.7 DIARRHEA, UNSPECIFIED 08/21/2018 [facility] DOLORE Ot M47.816 SPONDYLOSIS W/O MYELOPATHY OR RADICULOPA 09/07/2018 ANDRE MARTÍNEZLORE Ot V76.12 OTH SCREEN MAMMO-MALIGN NEOPLASM OF ARISTEO 09/07/2018 MEDDER , LOER Perez Ot V76.12 OTH SCREEN MAMMO-MALIGN NEOPLASM OF ARISTEO 09/07/2018 ANDRE MARTÍNEZ, LORE Perez Ot N85.8 OTHER SPECIFIED NONINFLAMMATORY DISORDER 09/07/2018 ANDRE MARTÍNEZLORE Ot N95.0 POSTMENOPAUSAL BLEEDING 09/07/2018 ANDRE MARTÍNEZ, LORE Perez Ot N39.0 URINARY TRACT INFECTION, SITE NOT SPECIF 09/07/2018 ANDRE MARTÍNEZLORE Ot R35.0 FREQUENCY OF MICTURITION 09/07/2018 MECCA FRANCIS DIRECTOR OF STRATEGY & MOBILE Ot I08.1 RHEUMATIC DISORDERS OF BOTH MITRAL AND T 09/07/2018 MECCA FRANCIS DIRECTOR OF STRATEGY & MOBILE Ot I48.0 PAROXYSMAL ATRIAL FIBRILLATION 09/07/2018 MECCA FRANCIS DIRECTOR OF STRATEGY & MOBILE Ot Z79.01 [facility] (CURRENT) USE OF ANTICOAGULANT 09/07/2018 ANDRE MARTÍNEZLORE Ot S92.351A DISP FX OF FIFTH METATARSAL BONE, RIGHT 09/07/2018 ANDRE MARTÍNEZLORE Ot S92.351D DISP FX OF 5TH METATARSAL BONE, R FT, 7T 09/07/2018 ANDRE MARTÍNEZLORE Ot K63.1 PERFORATION OF INTESTINE (NONTRAUMATIC) 09/07/2018 Ot R19.7 DIARRHEA, UNSPECIFIED 09/07/2018 Ot S92.351D DISP FX OF 5TH METATARSAL BONE, R FT, 7T 09/07/2018 ANDRE MARTÍNEZLORE Ot R19.7 DIARRHEA, UNSPECIFIED 09/07/2018 ANDRE MARTÍNEZLORE Ot M47.816 SPONDYLOSIS W/O MYELOPATHY OR RADICULOPA 10/01/2018 [facility] M19.041 PRIMARY OSTEOARTHRITIS, RIGHT HAND 10/11/2018 ANDRE MARTÍNEZ, LORE Perez Ot V76.12 OTH SCREEN MAMMO-MALIGN NEOPLASM OF ARISTEO 10/11/2018 MEDDER , LORE Perez Ot V76.12 OTH SCREEN MAMMO-MALIGN NEOPLASM OF ARISTEO 10/11/2018 ANDRE MARTÍNEZ, LORE Perez Ot N85.8 OTHER SPECIFIED NONINFLAMMATORY DISORDER 10/11/2018 ANDRE MARTÍNEZLORE Ot N95.0 POSTMENOPAUSAL BLEEDING 10/11/2018 ANDRE MARTÍNEZLORE Ot N39.0 URINARY TRACT INFECTION, SITE NOT SPECIF 10/11/2018 ANDRE MARTÍNEZLORE Ot R35.0 FREQUENCY OF MICTURITION 10/11/2018 MECCA FRANCIS Ot I08.1 RHEUMATIC DISORDERS OF BOTH MITRAL AND T 10/11/2018 MECCA FRANCIS Ot I48.0 PAROXYSMAL ATRIAL FIBRILLATION 10/11/2018 MECCA FRANCIS Ot Z79.01 [facility] (CURRENT) USE OF ANTICOAGULANT 10/11/2018 ANDRE MARTÍNEZLORE Ot S92.351A DISP FX OF FIFTH METATARSAL BONE, RIGHT 10/11/2018 ANDRE MARTÍNEZLORE Ot S92.351D DISP FX OF 5TH METATARSAL BONE, R FT, 7T 10/11/2018 ANDRE MARTÍNEZLORE Ot K63.1 PERFORATION OF INTESTINE (NONTRAUMATIC) 10/11/2018 Ot R19.7 DIARRHEA, UNSPECIFIED 10/11/2018 Ot S92.351D DISP FX OF 5TH METATARSAL BONE, R FT, 7T 10/11/2018 ANDRE MARTÍNEZLORE Ot R19.7 DIARRHEA, UNSPECIFIED 10/11/2018 ANDRE MARTÍNEZLORE Ot M47.816 SPONDYLOSIS W/O MYELOPATHY OR RADICULOPA 10/11/2018 ANDRE MARTÍNEZLORE Ot M19.041 PRIMARY OSTEOARTHRITIS, RIGHT HAND 10/11/2018 MECCA FRANCIS Ot I08.1 RHEUMATIC DISORDERS OF BOTH MITRAL AND T 10/11/2018 MECCA FRANCIS Ot I48.0 PAROXYSMAL ATRIAL FIBRILLATION 10/11/2018 MECCA FRANCIS Ot Z79.01 [facility] (CURRENT) USE OF ANTICOAGULANT 01/10/2019 ANDRE MARTÍNEZLORE Ot R19.7 DIARRHEA, UNSPECIFIED 01/15/2019 ANDRE MARTÍNEZLORE Ot R19.7 DIARRHEA, UNSPECIFIED Procedures Code Description Performed By Performed On [id number] EXTRACTION OF BUTTOCK SKIN , EXTERNAL LOLY [...] 16:00 Bacteria identification in wound by culture [id number] NRG FREE TEXT EXTERNAL (GROUP F POSITIVE) [...] resistant Staphylococcus aureus (MRSA) screening culture NEG NRG Complete blood count (CBC) with automated [...] INFLUENZA A AND B ANTIGENS BY IA [facility] Bacterial urine culture - 12/21/17 16:45 Bacterial urine culture [id number] NRG COLONY COUNT >100,000/ML NR FTX;REPORTABLE SENSITIVITY REPORTED AT 1032, 2-10-18 NR URINE CULTURE RESULTS PLUS [facility] Bacterial susceptibility panel - 12/21/17 16:45 Gentamicin [...] susceptibility test by minimum inhibitory concentration - NR Bacterial urine culture - 01/11/18 17:00 Bacterial urine culture [id number] NRG COLONY COUNT <10,000 NRG FTX;REPORTABLE SENSITIVITY REPORTED 01/14/18 9:45 NRG FREE TEXT ENTRY 2 PLUS, NRG FREE TEXT ENTRY 3 MIXED GRAM POSITIVES 10-100,000/ML NR Bacterial susceptibility panel - 01/11/18 17:00 Gentamicin [...] test by minimum inhibitory concentration 2 NRG Complete blood count (CBC) with automated white blood cell (WBC) differential - 02/11/18 10:18 Blood leukocytes automated count (number/volume) 7.1 10*3/uL 4.3-11.0 Blood erythrocytes automated count (number/volume) 4.03 10*6/uL 4.35-5.85 Venous blood hemoglobin measurement (mass/volume) 13.2 g/dL 11.5-16.0 Blood hematocrit (volume fraction) 38 % 35-52 Automated erythrocyte mean corpuscular volume 95 [foz_us] 80-99 Automated erythrocyte mean corpuscular hemoglobin (mass per erythrocyte) 33 pg 25-34 Automated erythrocyte mean corpuscular hemoglobin concentration measurement ( mass/volume) 34 g/dL 32-36 Automated erythrocyte distribution width ratio 13.4 % 10.0-14.5 Automated blood platelet count (count/volume) 229 10*3/uL 130-400 Automated blood platelet mean volume measurement 10.2 [foz_us] 7.4-10.4 Automated blood neutrophils/100 leukocytes 61 % 42-75 Automated blood lymphocytes/100 leukocytes 29 % 12-44 Blood monocytes/100 leukocytes 8 % 0-12 Automated blood eosinophils/100 leukocytes 1 % 0-10 Automated blood basophils/100 leukocytes 0 % 0-10 Blood neutrophils automated count (number/volume) 4.3 10*3 1.8-7.8 Blood lymphocytes automated count (number/volume) 2.1 10*3 1.0-4.0 Blood monocytes automated count (number/volume) 0.6 10*3 0.0-1.0 Automated eosinophil count 0.1 10*3/uL 0.0-0.3 Automated blood basophil count (count/volume) 0.0 10*3/uL 0.0-0.1 PT panel in platelet poor plasma by coagulation assay - 02/11/18 10:18 Prothrombin time (PT) in platelet poor plasma by coagulation assay 13.3 s 12.2-14.7 INR in platelet poor plasma or blood by coagulation assay 1.0 0.8-1.4 Activated partial thromboplastin time (aPTT) in platelet poor plasma bycoagulation assay - 02/11/18 10:18 Activated partial thromboplastin time (aPTT) in platelet poor plasma bycoagulation assay 24 s 24-35 Fibrin D-dimer FEU measurement in platelet poor plasma (mass/volume) - 10:18 Fibrin D-dimer FEU measurement in platelet poor plasma (mass/volume) < ug/mL 0.00-0.49 Comprehensive metabolic panel - 02/11/18 10:18 Serum or plasma sodium measurement (moles/volume) 135 mmol/L 135-145 Serum or plasma potassium measurement (moles/volume) 4.0 mmol/L 3.6-5.0 Serum or plasma chloride measurement (moles/volume) 101 mmol/L 98-107 Carbon dioxide 23 mmol/L 21-32 Serum or plasma anion gap determination (moles/volume) 11 mmol/L 5-14 Serum or plasma urea nitrogen measurement (mass/volume) 17 mg/dL 7-18 Serum or plasma creatinine measurement (mass/volume) 0.80 mg/dL 0.60-1.30 Serum or plasma urea nitrogen/creatinine mass ratio 21 NRG Serum or plasma creatinine measurement with calculation of estimated glomerular filtration rate > NRG Serum or plasma glucose measurement (mass/volume) 120 mg/dL 70-105 Serum or plasma calcium measurement (mass/volume) 9.6 mg/dL 8.5-10.1 Serum or plasma total bilirubin measurement (mass/volume) 0.7 mg/dL 0.1-1.0 Serum or plasma alkaline phosphatase measurement (enzymatic activity/volume) 37 U/L 40-136 Serum or plasma aspartate aminotransferase measurement (enzymatic activity/ volume) 16 U/L 5-34 Serum or plasma alanine aminotransferase measurement (enzymatic activity/volume ) 12 U/L 0-55 Serum or plasma protein measurement (mass/volume) 6.7 g/dL 6.4-8.2 Serum or plasma albumin measurement (mass/volume) 4.3 g/dL 3.2-4.5 Serum or plasma troponin i.cardiac measurement (mass/volume) - 02/11/18 10:18 Serum or plasma troponin i.cardiac measurement (mass/volume) < ng/ mL <0.30 Capillary blood glucose measurement by glucometer (mass/volume) - 02/11/18 10: 36 Capillary blood glucose measurement by glucometer (mass/volume) 106 mg/dL 70-110 Complete urinalysis with reflex to culture - 02/11/18 13:32 Urine color determination YELLOW NRG Urine clarity determination CLEAR NRG Urine pH measurement by test strip 6.5 5-9 Specific gravity of urine by test strip 1.015 1.016- 1.022 Urine protein assay by test strip, semi-quantitative NEGATIVE NEGATIVE Urine glucose detection by automated test strip NEGATIVE NEGATIVE Erythrocytes detection in urine sediment by light microscopy NEGATIVE NEGATIVE Urine ketones detection by automated test strip 2+ NEGATIVE Urine nitrite detection by test strip NEGATIVE NEGATIVE Urine total bilirubin detection by test strip NEGATIVE NEGATIVE Urine urobilinogen measurement by automated test strip (mass/volume) NORMAL NORMAL Urine leukocyte esterase detection by dipstick 3+ NEGATIVE Automated urine sediment erythrocyte count by microscopy (number/high power field) NONE NRG Automated urine sediment leukocyte count by microscopy (number/high power field ) [HPF] NRG Bacteria detection in urine sediment by light microscopy TRACE NRG Squamous epithelial cells detection in urine sediment by light microscopy 2-5 NRG Crystals detection in urine sediment by light microscopy NONE NRG Casts detection in urine sediment by light microscopy PRESENT NRG Mucus detection in urine sediment by light microscopy NEGATIVE NRG Complete urinalysis with reflex to culture YES NRG Hyaline casts detection in urine sediment by light microscopy 2-5 NRG Bacterial urine culture - 02/11/18 13:32 Bacterial urine culture [id number] NRG COLONY COUNT <10,000 NRG FREE TEXT ENTRY 2 OTHER GRAM POSITIVE JOS NRG Complete blood count (CBC) with automated white blood cell (WBC) differential - 02/12/18 03:25 Blood leukocytes automated count (number/volume) 7.1 10*3/uL 4.3-11.0 Blood erythrocytes automated count (number/volume) 3.87 10*6/uL 4.35-5.85 Venous blood hemoglobin measurement (mass/volume) 12.7 g/dL 11.5-16.0 Blood hematocrit (volume fraction) 37 % 35-52 Automated erythrocyte mean corpuscular volume 95 [foz_us] 80-99 Automated erythrocyte mean corpuscular hemoglobin (mass per erythrocyte) 33 pg 25-34 Automated erythrocyte mean corpuscular hemoglobin concentration measurement ( mass/volume) 34 g/dL 32-36 Automated erythrocyte distribution width ratio 13.4 % 10.0-14.5 Automated blood platelet count (count/volume) 228 10*3/uL 130-400 Automated blood platelet mean volume measurement 10.1 [foz_us] 7.4-10.4 Automated blood neutrophils/100 leukocytes 68 % 42-75 Automated blood lymphocytes/100 leukocytes 21 % 12-44 Blood monocytes/100 leukocytes 10 % 0-12 Automated blood eosinophils/100 leukocytes 1 % 0-10 Automated blood basophils/100 leukocytes 0 % 0-10 Blood neutrophils automated count (number/volume) 4.8 10*3 1.8-7.8 Blood lymphocytes automated count (number/volume) 1.5 10*3 1.0-4.0 Blood monocytes automated count (number/volume) 0.7 10*3 0.0-1.0 Automated eosinophil count 0.1 10*3/uL 0.0-0.3 Automated blood basophil count (count/volume) 0.0 10*3/uL 0.0-0.1 Comprehensive metabolic panel - 02/12/18 03:25 Serum or plasma sodium measurement (moles/volume) 134 mmol/L 135-145 Serum or plasma potassium measurement (moles/volume) 3.8 mmol/L 3.6-5.0 Serum or plasma chloride measurement (moles/volume) 100 mmol/L 98-107 Carbon dioxide 26 mmol/L 21-32 Serum or plasma anion gap determination (moles/volume) 8 mmol/L 5-14 Serum or plasma urea nitrogen measurement (mass/volume) 14 mg/dL 7-18 Serum or plasma creatinine measurement (mass/volume) 0.69 mg/dL 0.60-1.30 Serum or plasma urea nitrogen/creatinine mass ratio 20 NRG Serum or plasma creatinine measurement with calculation of estimated glomerular filtration rate > NRG Serum or plasma glucose measurement (mass/volume) 115 mg/dL 70-105 Serum or plasma calcium measurement (mass/volume) 9.1 mg/dL 8.5-10.1 Serum or plasma total bilirubin measurement (mass/volume) 0.7 mg/dL 0.1-1.0 Serum or plasma alkaline phosphatase measurement (enzymatic activity/volume) 34 U/L 40-136 Serum or plasma aspartate aminotransferase measurement (enzymatic activity/ volume) 15 U/L 5-34 Serum or plasma alanine aminotransferase measurement (enzymatic activity/volume ) 12 U/L 0-55 Serum or plasma protein measurement (mass/volume) 6.1 g/dL 6.4-8.2 Serum or plasma albumin measurement (mass/volume) 4.0 g/dL 3.2-4.5 Magnesium - 02/12/18 03:25 Magnesium 2.2 mg/dL 1.8-2.4 THYROID STIMULATING HORMONE - 02/12/18 03:25 THYROID STIMULATING HORMONE 0.73 u[iU]/mL 0.35-4.94 C DIFFICILE AG + TOXIN A/B. - 03/30/18 11:12 RESULTS NEGATIVE FOR ANTIGEN AND TOXIN A/B NRG C DIFFICILE AG + TOXIN A/B. - 05/19/18 20:14 RESULTS NEGATIVE FOR ANTIGEN AND TOXIN A/B NRG Encounters ACCT No. Visit Date/Time Discharge Status Pt. Type Provider Facility Loc./Unit Complaint [id number] 09/07/2018 11:12:00 09/07/2018 23:59:[address] [facility] Outpatient LORE POWELL DO [facility] RAD RIGHT HAND AND BACK THUMB PAIN AND NUMBNESS [id number] 07/18/2018 17:37:00 07/18/2018 23:59:[address] [facility] Outpatient LORE POWELL DO [facility] RAD LOWER BACK PAIN [id number] 06/30/2018 17:53:00 06/30/2018 23:59:59 [facility] Outpatient LORE POWELL DO [facility] MLF C DIFF/STOOL CULTURE [id number] 05/19/2018 20:13:00 05/19/2018 23:59:59 C[facility] Outpatient LORE POWELL DO [facility] MLF [id number] 04/18/2018 16:54:00 04/18/2018 23:59:59 CLS Outpatient LORE POWELL DO [facility] RAD FX RIGHT 5TH METATARSAL [id number] 03/30/2018 11:11:00 03/30/2018 23:59:59 CLS Outpatient LORE POWELL DO [facility] RAD DIARRHEA, FX OF 5TH RIGHT METATARSAL [id number] 03/20/2018 07:42:00 03/20/2018 23:59:59 CLS Outpatient MECCA FRANCIS [facility] CARD I48.0 PAF [id number] 03/08/2018 16:17:00 03/08/2018 23:59:59 CLS Outpatient LORE POWELL DO [facility] RAD FX OF 5TH RIGHT METATARSAL [id number] 02/11/2018 12:22:00 02/12/2018 15:55:00 DIS Inpatient JOVANI CAVAZOS DO [facility] ICU ATRIAL TACHYCARDIA [id number] 01/11/2018 16:57:00 01/11/2018 23:59:59 CLS Outpatient LORE POWELL DO [facility] LAB URINE FREQUENCY AT NIGHT [id number] 12/21/2017 16:23:00 12/21/2017 23:59:59 CLS Outpatient LORE POWELL DO [facility] LAB N39.0 [id number] 08/21/2017 16:39:00 08/21/2017 23:59:59 CLS Outpatient LORE POWELL DO [facility] RAD VAGINAL BLEEDING [id number] 12/22/2016 15:32:00 12/22/2016 17:35:00 DIS Emergency DESTINY KASPER [facility] ER CONGESTION;COUGH;WEAKNESS [id number] 10/20/2016 10:33:00 10/20/2016 16:00:00 DIS Outpatient PAKO CARTER MD [facility] WOUNDCARE [id number] 09/05/2016 11:05:00 09/10/2016 15:15:00 DIS Inpatient MEDKALA LORE MARTÍNEZ [facility] 4TH CYST WITH ABCESS [id number] 12/23/2014 10:19:00 12/23/2014 23:59:59 CLS Outpatient LORE POWELL DO [facility] RAD SCREENING [id number] 12/02/2013 14:28:00 12/02/2013 23:59:59 CLS Outpatient LORE POWELL DO [facility] RAD SCREENING [id number] 06/28/2018 00:00:00 Document Registration [id number] 12/23/2014 10:20:00 Document Registration [id number] 12/23/2014 10:19:00 Document Registration [id number] 09/09/2011 11:04:00 Document Registration [id number] 07/22/2010 10:24:00 Document Registration
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
[2019-01-23 16:51] LABS: BASOPHILS % (AUTO) 0 % (0-10); EOSINOPHILS % (AUTO) 0 % (0-10); HEMATOCRIT 44 % (35-52); HEMOGLOBIN 15.6 G/DL (11.5-16.0); LYMPHOCYTES # (AUTO) 1.4 X 10^3 (1.0-4.0); LYMPHOCYTES % (AUTO) 9 % (12-44); MEAN CORPUSCULAR HEMOGLOBIN 33 PG (25-34); MEAN CORPUSCULAR HGB CONC 35 G/DL (32-36); MEAN CORPUSCULAR VOLUME 95 FL (80-99); MEAN PLATELET VOLUME 9.9 FL (7.4-10.4); MONOCYTES # (AUTO) 0.8 X 10^3 (0.0-1.0); MONOCYTES % (AUTO) 5 % (0-12); NEUTROPHILS % (AUTO) 86 % (42-75); PLATELET COUNT 307 10^3/uL (130-400); RED CELL DISTRIBUTION WIDTH 13.5 % (10.0-14.5); WHITE BLOOD COUNT 15.2 10^3/uL (4.3-11.0)
[2019-01-23 17:15] LABS: ALANINE AMINOTRANSFERASE 11 U/L (0-55); ALBUMIN 4.8 GM/DL (3.2-4.5); ALKALINE PHOSPHATASE 49 U/L (40-136); BILIRUBIN,TOTAL 0.9 MG/DL (0.1-1.0); BUN/CREATININE RATIO 17; CARBON DIOXIDE 21 MMOL/L (21-32); CHLORIDE 96 MMOL/L (98-107); CREATININE SERUM 0.92 MG/DL (0.60-1.30); GFR ESTIMATED 58; GLUCOSE 187 MG/DL (70-105); LIPASE 5 U/L (8-78); POTASSIUM 4.9 MMOL/L (3.6-5.0); SODIUM 129 MMOL/L (135-145); TOTAL PROTEIN 7.7 GM/DL (6.4-8.2)
[2019-01-23 17:47] LABS: BAND NEUTROPHILS 4 %; BASOPHILS % (MANUAL) 0 %; EOSINOPHILS % (MANUAL) 0 %; LYMPHOCYTES % (MANUAL) 15 %; MONOCYTES % (MANUAL) 1 %; NEUTROPHILS % (MANUAL) 80 %; RBC MORPH NORMAL
--- NOTE | 2019-01-23 17:55 | Diagnostic Imaging Report ---
EXAMINATION: CT abdomen and pelvis without contrast dated 01/23/2019. TECHNIQUE: Multiple contiguous axial images were obtained through the abdomen and pelvis without the use of intravenous contrast. INDICATION: Abdominal pain. COMPARISON: No comparisons. FINDINGS: There is a large hiatal hernia with the entire stomach in the left lower chest. There appear to be a few small bowel loops also extending into the mid mediastinum. Visualized lung bases are unremarkable other than atelectasis and old granulomatous disease in the left lower lung anteriorly. Within the abdomen and pelvis, there is evidence of old granulomatous disease. There are diffusely dilated small bowel loops, fluid filled in nature, with multiple air-fluid levels noted. Distal small bowel loops are of normal caliber. Exact transition point is not visualized, but findings are likely due to either partial small bowel obstruction, ileus, or enteritis; correlate with symptoms. Colon is decompressed. Postoperative findings in the right lower quadrant are likely due to previous appendectomy. A small amount of free fluid in the right lower quadrant is noted and nonspecific. There is also minimal free fluid noted in the pelvis. There is a rounded hyperdensity within the region of the pelvis, perhaps a pessary-type device; correlate with surgical history. Urinary bladder contains a small amount of air and could be iatrogenic, but cystitis can cause a similar appearance; correlate clinically. Diffuse atherosclerotic disease is seen along the aorta and its branches. The nonopacified abdominal viscera are quite limited due to the lack of contrast, but no acute abnormality is appreciated involving the liver or spleen. Adrenal glands and pancreas are unremarkable other than atrophy of the pancreas. Kidneys demonstrate mild bilateral calcifications, right greater than left, possibly vascular rather than due to nonobstructive stones. There is scoliotic deformity of the spine, diffuse degenerative disease, and osteopenia. IMPRESSION: 1. Findings of likely early small bowel obstruction versus ileus; enteritis not excluded and followup is recommended. 2. Small amount of free fluid in the pelvis and right lower quadrant with evidence of likely previous appendectomy; correlate with surgical history. 3. Other chronic findings as discussed above. Dictated by: Dictated on workstation # [id number]
--- NOTE | 2019-01-23 18:54 | NUR ---
REPORT TO CHINTAN WEIR
[2019-01-23] MEDS ORDERED: HURRICAINE EXT TUBE (BENZOCAINE) ONE (18:56)
[2019-01-23] MEDS ORDERED: fentaNYL INJECTION 100 MCG/2 ML AMP IVP PRN (19:00)
[2019-01-23] MEDS ORDERED: ONDANSETRON 4 MG/2 ML (SDV) Z0FRAN ONE (19:11)
[2019-01-23] MEDS ORDERED: ONDANSETRON 4 MG/2 ML (SDV) Z0FRAN IVP ONE (19:15)
[2019-01-23] MEDS ORDERED: meTOprolol 5 MG/5 ML (LOPRESSOR) VIAL ONE (19:40)
[2019-01-23] MEDS ORDERED: meTOprolol 5 MG/5 ML (LOPRESSOR) VIAL IV ONE (20:15)
[2019-01-23 20:30] VITALS: BP 197/85
[2019-01-23] MEDS ORDERED: ONDANSETRON 4 MG/2 ML (SDV) Z0FRAN IV PRN (20:45)
--- NOTE | 2019-01-23 20:45 | NUR ---
Pt refuses flu et pna vaccinations
--- NOTE | 2019-01-23 20:45 | NUR ---
Mary Arroyo admitted to room 417-1, with an admitting diagnosis of SBO , on 01/23/19 from ED via stretcher, accompanied by staff et family.MARY ARROYO introduced to surroundings, call light, bed controls, phone, TV, temperature control, lights, meal times, smoking policy, visitor policy, side rail policy, bathrooms and showers. Patient Rights given to patient in the handbook.MARY ARROYO verbalizes understanding that [facility] is not responsible for the loss or damage to any personal effects or valuables that are kept in the patients posession during their hospitalization. The Patient Care Plans were discussed with the pt. MARY ARROYO verbalizes understanding of Interdisciplinary Patient Education. Patient and/or family were informed about the Rapid Response Team and its purpose.
[2019-01-23] MEDS ORDERED: PERMETHRIN (ELIMITE) 5% CR 60 GM TUBE TOP NR (20:46)
[2019-01-23 21:15] VITALS: BP 158/88
[2019-01-23] MEDS: cefTRIAXone 1,000 MG/SWFI 10 ML IV PUSH IV SCH ×2 (21:24)
[2019-01-23] MEDS: NS IV 1000 ML 1,000 ML IV SCH (21:24)
[2019-01-23] MEDS: metroNIDAZOLE 500 MG/100 ML IVPB (PRE-MIX) IV SCH (22:04)
[2019-01-23] MEDS: LORazepam INJ 2 MG/ML (ATIVAN) VIAL IV PRN (22:06)
[2019-01-23] MEDS: fentaNYL INJECTION 100 MCG/2 ML AMP IV PRN (22:06)
[2019-01-24] VITALS: BP 138/67
[2019-01-24 04:00] VITALS: BP 157/69
[2019-01-24] MEDS: metroNIDAZOLE 500 MG/100 ML IVPB (PRE-MIX) IV SCH ×2 (05:29→14:14)
[2019-01-24 05:47] LABS: BASOPHILS % (AUTO) 0 % (0-10); EOSINOPHILS % (AUTO) 0 % (0-10); HEMATOCRIT 44 % (35-52); HEMOGLOBIN 15.1 G/DL (11.5-16.0); LYMPHOCYTES # (AUTO) 0.7 X 10^3 (1.0-4.0); LYMPHOCYTES % (AUTO) 13 % (12-44); MEAN CORPUSCULAR HEMOGLOBIN 33 PG (25-34); MEAN CORPUSCULAR HGB CONC 34 G/DL (32-36); MEAN CORPUSCULAR VOLUME 95 FL (80-99); MEAN PLATELET VOLUME 9.8 FL (7.4-10.4); MONOCYTES # (AUTO) 0.8 X 10^3 (0.0-1.0); MONOCYTES % (AUTO) 15 % (0-12); NEUTROPHILS % (AUTO) 73 % (42-75); PLATELET COUNT 235 10^3/uL (130-400); RED CELL DISTRIBUTION WIDTH 13.2 % (10.0-14.5); WHITE BLOOD COUNT 5.5 10^3/uL (4.3-11.0)
[2019-01-24 06:08] LABS: ALANINE AMINOTRANSFERASE 9 U/L (0-55); ALBUMIN 4.4 GM/DL (3.2-4.5); ALKALINE PHOSPHATASE 41 U/L (40-136); BILIRUBIN,TOTAL 0.9 MG/DL (0.1-1.0); BUN/CREATININE RATIO 28; CALCIUM 9.2 MG/DL (8.5-10.1); CARBON DIOXIDE 24 MMOL/L (21-32); CHLORIDE 98 MMOL/L (98-107); CREATININE SERUM 0.78 MG/DL (0.60-1.30); GFR ESTIMATED > 60; GLUCOSE 145 MG/DL (70-105); POTASSIUM 4.6 MMOL/L (3.6-5.0); SODIUM 135 MMOL/L (135-145); TOTAL PROTEIN 6.9 GM/DL (6.4-8.2)
[2019-01-24] MEDS: NS IV 1000 ML 1,000 ML IV SCH ×2 (06:50→07:45)
[2019-01-24 08:00] VITALS: BP 103/67
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
[2019-01-24 08:32] LABS: PROTHROMBIN TIME PATIENT 12.9 SEC (12.2-14.7)
[2019-01-24] MEDS: meTOprolol 5 MG/5 ML (LOPRESSOR) VIAL IV SCH ×2 (09:00→20:48)
[2019-01-24] MEDS ORDERED: ACET-2267 PO ×2 (09:27)
[2019-01-24] MEDS ORDERED: FERR-84 PO (09:27)
[2019-01-24] MEDS ORDERED: NAPR220T66 PO (09:27)
[2019-01-24] MEDS ORDERED: MELA5TAB14 PO (09:27)
[2019-01-24] MEDS ORDERED: HYDR453.3 TOP (09:27)
[2019-01-24] MEDS ORDERED: CALC625T66 PO (09:27)
[2019-01-24] MEDS ORDERED: ALPR0.254 PO (09:27)
[2019-01-24] MEDS ORDERED: MELA3TAB PO (09:27)
[2019-01-24] MEDS ORDERED: METO-387 PO (09:27)
[2019-01-24] MEDS ORDERED: OMEP20TA7 PO (09:32)
[2019-01-24] MEDS ORDERED: CETI10TA20 PO (09:33)
[2019-01-24] MEDS ORDERED: DIPH25CA79 PO (09:33)
--- NOTE | 2019-01-24 09:34 | NUR ---
SPOKE WITH THE PATIENT ABOUT HER MEDICATIONS. SHE LISTED WHAT SHE IS TAKING TO THE BEST OF HER ABILITY BUT ASKED THAT I CALL SHRAVAN TO DOUBLE CHECK. I CALLED SHRAVAN WHO WAS AT THE HOUSE AND COULD LOOK AT THE MEDICATION BOTTLES. SHE READ TO ME WHAT THE PATIENT TAKES WELL. THE METOPROLOL ER 25MG WAS WRITTEN 2 DAILY #180 10-15-18 HOWEVER PATIENT AND SHRAVAN BOTH VERIFY SHE HAS BEEN TAKING 1/[address] MCCANN. THEY CHANGED THE DOSE BUT DID NOT RE WRITE THE SCRIPT AT THE PHARMACY. SHE TAKES THE FOLLOWING OTC: TYLENOL 500MG 1 LUNCH 2 HS ALEVE 1 DAILY IN AM FIBER 2 DAILY IN AM IRON 1 DAILY WITH LUNCH MELATONIN 3MG AT 7PM MELATONIN 5MG AT 10PM OMEPRAZOLE DAILY BENADRYL HS PRN ITCHING
[2019-01-24 12:00] VITALS: BP 154/82
--- NOTE | 2019-01-24 12:46 | Diagnostic Imaging Report ---
INDICATION: Small bowel obstruction. TIME OF EXAM: 11:14 a.m. COMPARISON: Correlation is made with the CT study performed one day earlier. FINDINGS: There continues to be moderate gaseous distention of small bowel loops throughout the abdomen. No significant gas within the colon is seen. No bowel wall thickening or pneumatosis is identified. There appears to be a pessary in the pelvis. IMPRESSION: Moderate small bowel distention, similar to CT study one day earlier. Continued progress films are recommended. Dictated by: Dictated on workstation # [id number]
[2019-01-24 13:13] LABS: CLARITY,URINE CLEAR; COLOR,URINE YELLOW; GLUCOSE, URINE (UA) NEGATIVE (NEGATIVE); KETONES,URINE 3+ (NEGATIVE); LEUKOCYTE ESTERASE ,URINE 2+ (NEGATIVE); NITRITE,URINE NEGATIVE (NEGATIVE); PH,URINE 5 (5-9); PROTEIN,URINE 2+ (NEGATIVE); UROBILINOGEN,URINE NORMAL (NORMAL)
[2019-01-24 13:24] LABS: BACTERIA,URINE FEW /HPF; BILIRUBIN,URINE 1+ (NEGATIVE); RBC,URINE 0-2 /HPF
[2019-01-24 13:25] LABS: YEAST,URINE FEW /HPF
[2019-01-24 15:54] VITALS: BP 167/76
[2019-01-24 19:42] VITALS: BP 179/79
[2019-01-24] MEDS: cefTRIAXone 1,000 MG/SWFI 10 ML IV PUSH IV SCH ×2 (20:48)
[2019-01-25] VITALS: BP 170/82
[2019-01-25] MEDS: NS IV 1000 ML 1,000 ML IV SCH ×4 (00:01→22:40)
[2019-01-25] MEDS: metroNIDAZOLE 500 MG/100 ML IVPB (PRE-MIX) IV SCH ×4 (00:03→22:38)
[2019-01-25] MEDS: LORazepam INJ 2 MG/ML (ATIVAN) VIAL IV PRN (00:59)
[2019-01-25 04:00] VITALS: BP 164/79
[2019-01-25 05:53] LABS: HEMOGLOBIN 13.1 G/DL (11.5-16.0); MEAN PLATELET VOLUME 9.6 FL (7.4-10.4); RED CELL DISTRIBUTION WIDTH 13.7 % (10.0-14.5); WHITE BLOOD COUNT 4.9 10^3/uL (4.3-11.0)
[2019-01-25 06:10] LABS: ALANINE AMINOTRANSFERASE 9 U/L (0-55); ALBUMIN 3.9 GM/DL (3.2-4.5); ALKALINE PHOSPHATASE 35 U/L (40-136); BILIRUBIN,TOTAL 0.7 MG/DL (0.1-1.0); BUN/CREATININE RATIO 30; CALCIUM 8.5 MG/DL (8.5-10.1); CARBON DIOXIDE 23 MMOL/L (21-32); CHLORIDE 103 MMOL/L (98-107); CREATININE SERUM 0.67 MG/DL (0.60-1.30); GFR ESTIMATED > 60; GLUCOSE 117 MG/DL (70-105); POTASSIUM 3.9 MMOL/L (3.6-5.0); SODIUM 136 MMOL/L (135-145); TOTAL PROTEIN 6.2 GM/DL (6.4-8.2)
[2019-01-25 08:00] VITALS: BP 178/84
--- NOTE | 2019-01-25 08:25 | NUR ---
DR POWELL ON FLOOR NEW WRITTEN ORDERS RECEIVED. ORDERS ENTERED.
--- NOTE | 2019-01-25 08:26 | Progress Note (SOAP) ---
Subjective Time Seen by a Provider: 08:24 Subjective/Events-last exam Patient feeling a little better today. Patient states she's passing less gas. Patient tended to touch and abdomen. Consult with surgeon Objective Exam Vital Signs Date Time Temp Pulse Resp B/P (MAP) Pulse Ox O2 Delivery O2 Flow Rate FiO2 01/25/19 04:00 98.8 84 20 164/79 (107) 95 Room Air 01/25/19 00:00 98.6 81 18 170/82 (111) 96 Room Air 01/24/19 20:00 Room Air 01/24/19 19:42 97.9 100 16 179/79 (112) 96 Room Air 01/24/19 19:00 100 01/24/19 15:54 97.3 69 16 167/76 (106) 95 Room Air 01/24/19 13:00 88 01/24/19 12:00 98.6 94 18 154/82 (106) 96 Room Air 01/24/19 10:48 Room Air I & O 01/25/19 07:00 Intake Total 0 ml Output Total 780 ml Balance -780 ml Capillary Refill : Less Than 3 Seconds General Appearance: No Apparent Distress, Thin HEENT: Normal ENT Inspection Neck: Full Range of Motion Respiratory: Lungs Clear, No Accessory Muscle Use, No Respiratory Distress Cardiovascular: Regular Rate, Rhythm Gastrointestinal: soft, distended, other (Tender to touch) Results Lab Laboratory Tests 01/25/19 05:35 Laboratory Tests 01/24/19 13:05: Urine Color YELLOW, Urine Clarity CLEAR, Urine pH 5, Urine Specific [place] 1.025H, Urine Protein 2+H, Urine Glucose (UA) NEGATIVE, Urine Ketones 3+H, Urine Nitrite NEGATIVE, Urine Bilirubin 1+H, Urine Urobilinogen NORMAL, Urine Leukocyte Esterase 2+H, Urine RBC (Auto) 2+H, Urine RBC 0-2, Urine WBC 5-10H, Urine Squamous Epithelial Cells 10-25H, Urine Crystals NONE, Urine Bacteria FEWH , Urine Casts PRESENT, Urine Hyaline Casts 10-25H, Urine Mucus NEGATIVE, Urine Yeast FEWH, Urine Culture Indicated YES 01/25/19 05:35: White Blood Count 4.9, Red Blood Count 3.98L, Hemoglobin 13.1, Hematocrit 39, Mean Corpuscular Volume 97, Mean Corpuscular Hemoglobin 33, Mean Corpuscular Hemoglobin Concent 34, Red Cell Distribution Width 13.7, Platelet Count 231, Mean Platelet Volume 9.6, Sodium Level 136, Potassium Level 3.9, Chloride Level 103, Carbon Dioxide Level 23, Anion Gap 10, Blood Urea Nitrogen 20H, Creatinine 0.67, Estimat Glomerular Filtration Rate > 60, BUN/Creatinine Ratio 30, Glucose Level 117H, Calcium Level 8.5, Corrected Calcium 8.6, Total Bilirubin 0.7, Aspartate Amino Transf (AST/SGOT) 16, Alanine Aminotransferase (ALT/SGPT) 9, Alkaline Phosphatase 35L, Total Protein 6.2L, Albumin 3.9 Assessment/Plan Assessment/Plan Assess & Plan/Chief Complaint Small bowel obstruction. Hypertension. Scabies treated Clinical Quality Measures Admission Status Admission Dx Small bowel obstruction. Large hiatal hernia. DVT/VTE Risk/Contraindication: Risk Factor Score Per Nursin RFS Level Per Nursing on Admit: 3=High Contraindications-Pharm: Other *list below* LORE POWELL DO Jan 25, 2019 08:26
[2019-01-25] MEDS ORDERED: FUROSEMIDE 40 MG/4 ML INJ (LASIX) IVP NR (08:30)
[2019-01-25] MEDS: meTOprolol 5 MG/5 ML (LOPRESSOR) VIAL IV SCH ×2 (08:49→21:37)
[2019-01-25] MEDS: fentaNYL INJECTION 100 MCG/2 ML AMP IV PRN ×2 (10:49→21:31)
[2019-01-25 12:00] VITALS: BP 164/62
--- NOTE | 2019-01-25 14:21 | Diagnostic Imaging Report ---
INDICATION: Abdominal pain and distention. TIME OF EXAM: 01:54 p.m. COMPARISON: Correlation is made with prior study one day earlier. FINDINGS: There continues to be moderate gaseous distention of small bowel loops throughout the abdomen. There is a pessary in the midline of the low pelvis. No definite bowel wall thickening or pneumatosis is seen. No free air is identified. There appears be an atypical course for the NG tube in the upper abdomen and lower chest. Imaging over the chest would be recommended for further evaluation to further evaluate the NG tube. IMPRESSION: Continued distention of small bowel loops in the abdomen similar to prior exams. There is abnormal course to the NG tube but not entirely included on this study. Chest radiograph including the upper abdomen is recommended for further evaluation. Dictated by: Dictated on workstation # [id number]
[2019-01-25 16:00] VITALS: BP 110/78
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
[2019-01-25 20:00] VITALS: BP 173/92
[2019-01-25] MEDS: cefTRIAXone 1,000 MG/SWFI 10 ML IV PUSH IV SCH ×2 (21:32)
[2019-01-26] VITALS (7 sets, daily range): BP systolic 162–192; BP diastolic 54–93
[2019-01-26] MEDS: LORazepam INJ 2 MG/ML (ATIVAN) VIAL IV PRN ×2 (00:48→23:02)
[2019-01-26] MEDS: fentaNYL INJECTION 100 MCG/2 ML AMP IV PRN ×2 (00:49→23:00)
[2019-01-26 04:47] LABS: BILIRUBIN,URINE NEGATIVE (NEGATIVE); CLARITY,URINE SLIGHTLY CLOUDY; COLOR,URINE AMBER; GLUCOSE, URINE (UA) NEGATIVE (NEGATIVE); KETONES,URINE 4+ (NEGATIVE); LEUKOCYTE ESTERASE ,URINE 2+ (NEGATIVE); NITRITE,URINE POSITIVE (NEGATIVE); PH,URINE 6 (5-9); PROTEIN,URINE 2+ (NEGATIVE); UROBILINOGEN,URINE NORMAL (NORMAL)
[2019-01-26 04:57] LABS: BACTERIA,URINE FEW /HPF; RBC,URINE 0-2 /HPF; WBC,URINE 0-2 /HPF
[2019-01-26] MEDS: metroNIDAZOLE 500 MG/100 ML IVPB (PRE-MIX) IV SCH ×3 (06:31→23:00)
[2019-01-26 06:32] LABS: HEMOGLOBIN 12.7 G/DL (11.5-16.0); MEAN PLATELET VOLUME 10.1 FL (7.4-10.4); RED CELL DISTRIBUTION WIDTH 13.5 % (10.0-14.5); WHITE BLOOD COUNT 5.9 10^3/uL (4.3-11.0)
[2019-01-26 06:46] LABS: ALANINE AMINOTRANSFERASE 8 U/L (0-55); ALBUMIN 3.7 GM/DL (3.2-4.5); ALKALINE PHOSPHATASE 34 U/L (40-136); BILIRUBIN,TOTAL 0.6 MG/DL (0.1-1.0); BUN/CREATININE RATIO 28; CALCIUM 8.5 MG/DL (8.5-10.1); CARBON DIOXIDE 21 MMOL/L (21-32); CHLORIDE 101 MMOL/L (98-107); CREATININE SERUM 0.64 MG/DL (0.60-1.30); GFR ESTIMATED > 60; GLUCOSE 101 MG/DL (70-105); POTASSIUM 3.3 MMOL/L (3.6-5.0); SODIUM 134 MMOL/L (135-145); TOTAL PROTEIN 5.8 GM/DL (6.4-8.2)
[2019-01-26] MEDS: meTOprolol 5 MG/5 ML (LOPRESSOR) VIAL IV SCH ×2 (09:49→20:48)
--- NOTE | 2019-01-26 10:07 | Diagnostic Imaging Report ---
Indication: Abdominal pain and distention. Comparison: 01/25/2019. Discussion: Supine and upright views of the abdomen were obtained. Multiple gas-filled dilated small bowel loops are again noted with scattered air-fluid levels. No significant gas or stool identified within the colon. Findings are consistent with persistent small bowel obstruction. No pneumatosis or pneumoperitoneum. No osseous abnormality. 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 Impression: 1. Persistent high-grade small bowel obstruction. Dictated by: Dictated on workstation # [id number]
--- NOTE | 2019-01-26 11:47 | Progress Note (SOAP) ---
Subjective Date Seen by a Provider: Jan 26, 2019 Time Seen by a Provider: 11:00 Subjective/Events-last exam Patient seen with Dr. Jones. Patient reports doing ok but still has not had a BM or passing any gas. Does report periods of nausea but vomiting. Is ambulating with PT. She does reports some abdominal discomfort. Objective Exam Vital Signs Date Time Temp Pulse Resp B/P (MAP) Pulse Ox O2 Delivery O2 Flow Rate FiO2 01/26/19 08:00 Room Air 01/26/19 08:00 98.9 85 18 179/79 (112) 94 Room Air 01/26/19 07:00 83 01/26/19 04:00 98.0 83 18 168/54 (92) 95 Room Air 01/26/19 01:00 81 01/26/19 00:00 98.3 82 18 183/93 (123) 94 Room Air 01/25/19 20:00 99.2 94 18 173/92 (119) 94 Room Air 01/25/19 20:00 Room Air 01/25/19 19:00 117 01/25/19 16:00 99.2 72 16 110/78 (89) 01/25/19 13:00 87 01/25/19 12:00 98.5 84 20 164/62 (96) 94 Room Air I & O 01/26/19 07:00 Intake Total 1310 ml Output Total 850 ml Balance 460 ml Capillary Refill : Less Than 3 Seconds General Appearance: No Apparent Distress, WD/WN Neck: Full Range of Motion, Normal Inspection, Supple Respiratory: Lungs Clear, Normal Breath Sounds, No Accessory Muscle Use, No Respiratory Distress Cardiovascular: Regular Rate, Rhythm, No Edema Gastrointestinal: distended, tenderness Extremity: Normal Capillary Refill, Normal Inspection, Normal Range of Motion Neurologic/Psychiatric: Alert, Oriented x3 Skin: Normal Color, Warm/Dry Results Lab Laboratory Tests 01/26/19 04:35: Urine Color AMBERH, Urine Clarity SLIGHTLY CLOUDY, Urine pH 6, Urine Specific Covert 1.020, Urine Protein 2+H, Urine Glucose (UA) NEGATIVE, Urine Ketones 4+H , Urine Nitrite POSITIVEH, Urine Bilirubin NEGATIVE, Urine Urobilinogen NORMAL, Urine Leukocyte Esterase 2+H, Urine RBC (Auto) 1+H, Urine RBC 0-2, Urine WBC 0-2 , Urine Squamous Epithelial Cells 10-25H, Urine Crystals NONE, Urine Bacteria FEWH, Urine Casts NONE, Urine Mucus SMALLH, Urine Culture Indicated YES 01/26/19 06:09: White Blood Count 5.9, Red Blood Count 3.87L, Hemoglobin 12.7, Hematocrit 38, Mean Corpuscular Volume 97, Mean Corpuscular Hemoglobin 33, Mean Corpuscular Hemoglobin Concent 34, Red Cell Distribution Width 13.5, Platelet Count 217, Mean Platelet Volume 10.1, Sodium Level 134L, Potassium Level 3.3L, Chloride Level 101, Carbon Dioxide Level 21, Anion Gap 12, Blood Urea Nitrogen 18, Creatinine 0.64, Estimat Glomerular Filtration Rate > 60, BUN/Creatinine Ratio 28, Glucose Level 101, Calcium Level 8.5, Corrected Calcium 8.7, Total Bilirubin 0.6, Aspartate Amino Transf (AST/SGOT) 13, Alanine Aminotransferase ( ALT/SGPT) 8, Alkaline Phosphatase 34L, Total Protein 5.8L, Albumin 3.7 Microbiology 01/24/19 Urine Culture - Final, Complete NO GROWTH Assessment/Plan Assessment/Plan Assess & Plan/Chief Complaint A 88 year old female with partial small bowel obstruction, most likely secondary to adhesion, tissue formation intraabdominally. VSS. Continue with IV fluids, pain, nausea medications. NGT Will await bowel function before advancing diet. Clinical Quality Measures DVT/VTE Risk/Contraindication: Risk Factor Score Per Nursin RFS Level Per Nursing on Admit: 3=High Contraindications-Pharm: Other *list below* RIGOBERTO URRUTIA APRN Jan 26, 2019 11:47
[2019-01-26] MEDS: NS IV 1000 ML 1,000 ML IV SCH (11:48)
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
--- NOTE | 2019-01-26 12:45 | Progress Note-Hospitalist ---
Subjective HPI/CC On Admission Date Seen by Provider: Jan 26, 2019 Time Seen by Provider: 11:45 Subjective/Events-last exam Patient the same NGT in place Appreciate Dr Jones's help Will DC IVF and place on Clinimix for peripheral nutrition due to frail status chronically and advanced age Lives in apt connected to daughter's house Abdominal pain at times Ambulating with assistance Monitoring labs and vitals Review of Systems Gastrointestinal: Nausea, Abdominal Pain Objective Exam Vital Signs Vital Signs Date Time Temp Pulse Resp B/P (MAP) Pulse Ox O2 Delivery O2 Flow Rate FiO2 01/26/19 13:00 75 01/26/19 12:00 99.2 20 162/90 (114) 95 Room Air Capillary Refill : Less Than 3 Seconds General Appearance: No Apparent Distress, WD/WN, Chronically ill, Other (NGT in place) HEENT: Normal ENT Inspection Neck: Full Range of Motion, Normal Inspection, Supple Respiratory: Lungs Clear, Normal Breath Sounds, No Accessory Muscle Use, No Respiratory Distress Cardiovascular: Regular Rate, Rhythm, No Edema Gastrointestinal: Abnormal Bowel Sounds, Other (Decreased bowel sounds) Extremity: Normal Capillary Refill, Normal Inspection, Normal Range of Motion Neurologic/Psychiatric: Alert, Oriented x3 Skin: Normal Color, Warm/Dry Results/Procedures Lab Laboratory Tests 01/26/19 06:09 Patient resulted labs reviewed. Assessment/Plan Assessment and Plan Assess & Plan/Chief Complaint Assessment: SBO Plan: NGT Clinimix PT/OT Gastrografin Monday Diagnosis/Problems Diagnosis/Problems (1) Small bowel obstruction Status: Acute (2) Nasogastric tube present Status: Acute (3) Nausea & vomiting Status: Acute Qualifiers: Vomiting Intractability: unspecified (4) Anxiety Status: Chronic (5) GERD (gastroesophageal reflux disease) Status: Chronic Qualifiers: Esophagitis presence: without esophagitis Qualified Codes: K21.9 - Gastro- esophageal reflux disease without esophagitis Clinical Quality Measures DVT/VTE Risk/Contraindication: Risk Factor Score Per Nursin RFS Level Per Nursing on Admit: 3=High Contraindications-Pharm: Other *list below* JOVANI CAVAZOS DO Jan 26, 2019 12:45
[2019-01-26] MEDS ORDERED: ACETAMINOPHEN 650 MG SUPP (TYLENOL) PR PRN (13:30)
[2019-01-26] MEDS: AA 4.25% W/LYTES IN D5W IV SOL 1,000 ML IV SCH ×2 (13:37→23:02)
[2019-01-26] MEDS ORDERED: meTOprolol 5 MG/5 ML (LOPRESSOR) VIAL IV ONE (18:15)
--- NOTE | 2019-01-26 18:19 | NUR ---
PT IS NOPO AND B/P KEEP INCREASING -- CALLED DR LIM AND GOT ORDER TO GIVE IV LOPRESSOR 5 MG NOW AND TO INCREASE LOPRESSOR TO 10MG BID TO START AT 2100
[2019-01-26] MEDS ORDERED: meTOprolol 5 MG/5 ML (LOPRESSOR) VIAL ONE (18:25)
[2019-01-26] MEDS: cefTRIAXone 1,000 MG/SWFI 10 ML IV PUSH IV SCH ×2 (20:47)
[2019-01-27] VITALS (7 sets, daily range): BP systolic 161–186; BP diastolic 80–95
--- NOTE | 2019-01-27 00:15 | NUR ---
REPORT RECEIVED. ASSUMED CARE OF PT AT THIS TIME
[2019-01-27] MEDS: metroNIDAZOLE 500 MG/100 ML IVPB (PRE-MIX) IV SCH ×3 (05:52→21:45)
--- NOTE | 2019-01-27 06:05 | NUR ---
PT BY ACCIDENT PULLED OUT NG TUBE. DR LIM INFORMED AND NEW ORDERS TO LEAVE NG TUBE OUT AND ADVANCED PT TO CLEAR LIQUID DIET.
[2019-01-27 06:52] LABS: BASOPHILS % (AUTO) 0 % (0-10); EOSINOPHILS # (AUTO) 0.1 10^3/uL (0.0-0.3); EOSINOPHILS % (AUTO) 2 % (0-10); HEMATOCRIT 37 % (35-52); HEMOGLOBIN 12.7 G/DL (11.5-16.0); LYMPHOCYTES # (AUTO) 1.4 X 10^3 (1.0-4.0); LYMPHOCYTES % (AUTO) 17 % (12-44); MEAN CORPUSCULAR HEMOGLOBIN 33 PG (25-34); MEAN CORPUSCULAR HGB CONC 34 G/DL (32-36); MEAN CORPUSCULAR VOLUME 96 FL (80-99); MEAN PLATELET VOLUME 10.4 FL (7.4-10.4); MONOCYTES # (AUTO) 1.3 X 10^3 (0.0-1.0); MONOCYTES % (AUTO) 15 % (0-12); NEUTROPHILS # (AUTO) 5.7 X 10^3 (1.8-7.8); NEUTROPHILS % (AUTO) 67 % (42-75); PLATELET COUNT 219 10^3/uL (130-400); RED CELL DISTRIBUTION WIDTH 12.8 % (10.0-14.5); WHITE BLOOD COUNT 8.5 10^3/uL (4.3-11.0)
[2019-01-27 07:15] LABS: ALANINE AMINOTRANSFERASE 8 U/L (0-55); ALBUMIN 3.6 GM/DL (3.2-4.5); ALKALINE PHOSPHATASE 31 U/L (40-136); BILIRUBIN,TOTAL 0.6 MG/DL (0.1-1.0); BUN/CREATININE RATIO 33; CALCIUM 8.5 MG/DL (8.5-10.1); CARBON DIOXIDE 22 MMOL/L (21-32); CHLORIDE 98 MMOL/L (98-107); CREATININE SERUM 0.57 MG/DL (0.60-1.30); GFR ESTIMATED > 60; GLUCOSE 113 MG/DL (70-105); POTASSIUM 3.3 MMOL/L (3.6-5.0); SODIUM 131 MMOL/L (135-145); TOTAL PROTEIN 5.9 GM/DL (6.4-8.2)
--- NOTE | 2019-01-27 09:41 | Progress Note (SOAP) ---
Subjective Date Seen by a Provider: Jan 27, 2019 Time Seen by a Provider: 09:25 Subjective/Events-last exam Patient seen with Dr. Jones. Patient reports that NG "fell out last night". She reports that she did pass some gas but very little. Denies any N/V. Taking sips of liquids and tolerating. Ambulating with PT. Still has abdominal discomfort but patient believes this is slightly better. Objective Exam Vital Signs Date Time Temp Pulse Resp B/P (MAP) Pulse Ox O2 Delivery O2 Flow Rate FiO2 01/27/19 08:00 96.6 85 18 186/95 (125) 93 Room Air 01/27/19 08:00 Room Air 01/27/19 07:00 78 01/27/19 04:00 98.5 86 20 179/80 (113) 94 Room Air 01/27/19 02:10 Room Air 01/27/19 01:00 68 01/27/19 00:00 97.1 74 18 180/86 (117) 93 Room Air 01/26/19 21:00 172/74 (106) 01/26/19 20:00 97.2 78 18 192/91 (124) 95 Room Air 01/26/19 20:00 Room Air 01/26/19 19:00 70 01/26/19 16:00 99.2 82 18 180/80 (113) 95 Room Air 01/26/19 13:00 75 01/26/19 12:00 99.2 74 20 162/90 (114) 95 Room Air I & O 01/27/19 07:00 Intake Total 698 ml Balance 698 ml Capillary Refill : Less Than 3 Seconds General Appearance: No Apparent Distress, WD/WN Neck: Full Range of Motion, Normal Inspection, Non Tender, Supple Respiratory: Lungs Clear, Normal Breath Sounds, No Accessory Muscle Use, No Respiratory Distress Cardiovascular: Regular Rate, Rhythm, No Edema Gastrointestinal: distended (Mild), tenderness Extremity: Normal Capillary Refill, Normal Inspection, Normal Range of Motion Neurologic/Psychiatric: Alert, Oriented x3 Skin: Normal Color, Warm/Dry Results Lab Laboratory Tests 01/27/19 06:23: White Blood Count 8.5, Red Blood Count 3.86L, Hemoglobin 12.7, Hematocrit 37, Mean Corpuscular Volume 96, Mean Corpuscular Hemoglobin 33, Mean Corpuscular Hemoglobin Concent 34, Red Cell Distribution Width 12.8, Platelet Count 219, Mean Platelet Volume 10.4, Neutrophils (%) (Auto) 67, Lymphocytes (%) (Auto) 17 , Monocytes (%) (Auto) 15H, Eosinophils (%) (Auto) 2, Basophils (%) (Auto) 0, Neutrophils # (Auto) 5.7, Lymphocytes # (Auto) 1.4, Monocytes # (Auto) 1.3H, Eosinophils # (Auto) 0.1, Basophils # (Auto) 0.0, Sodium Level 131L, Potassium Level 3.3L, Chloride Level 98, Carbon Dioxide Level 22, Anion Gap 11, Blood Urea Nitrogen 19H, Creatinine 0.57L, Estimat Glomerular Filtration Rate > 60, BUN/Creatinine Ratio 33, Glucose Level 113H, Calcium Level 8.5, Corrected Calcium 8.8, Total Bilirubin 0.6, Aspartate Amino Transf (AST/SGOT) 16, Alanine Aminotransferase (ALT/SGPT) 8, Alkaline Phosphatase 31L, Total Protein 5.9L, Albumin 3.6 Microbiology 01/24/19 Urine Culture - Final, Complete NO GROWTH Assessment/Plan Assessment/Plan Assess & Plan/Chief Complaint A 88 year old female with partial small bowel obstruction, most likely secondary to adhesion, tissue formation intraabdominally. VSS. Continue with IV fluids, pain, nausea medications. Continue with clear liquid diet and will await more bowel function before advancing diet. Will start reglan Clinical Quality Measures DVT/VTE Risk/Contraindication: Risk Factor Score Per Nursin RFS Level Per Nursing on Admit: 3=High Contraindications-Pharm: Other *list below* RIGOBERTO URRUTIA APRN Jan 27, 2019 09:41
[2019-01-27] MEDS: meTOprolol 5 MG/5 ML (LOPRESSOR) VIAL IV SCH ×2 (09:42→20:35)
[2019-01-27] MEDS ORDERED: cloNIDine 0.1 MG (CATAPRES) TAB PO PRN (12:30)
[2019-01-27] MEDS: AA 4.25% W/LYTES IN D5W IV SOL 1,000 ML IV SCH (12:44)
[2019-01-27] MEDS: METOCLOPRAMIDE INJ 10 MG/2 ML (REGLAN) IVP SCH ×3 (12:44→23:38)
--- NOTE | 2019-01-27 12:48 | Progress Note-Hospitalist ---
Subjective HPI/CC On Admission Date Seen by Provider: Jan 27, 2019 Time Seen by Provider: 12:00 Subjective/Events-last exam Bowel function has not returned to normal Bowel sounds remain hypoactive Abdominal remains distended No more nausea so NG tube was discontinued Patient able to order hot tea Denies any significant pain issues Check labs and all within normal limits Ambulating well back and forth to the bathroom Review of Systems Gastrointestinal: Abdominal Pain Objective Exam Vital Signs Vital Signs Date Time Temp Pulse Resp B/P (MAP) Pulse Ox O2 Delivery O2 Flow Rate FiO2 01/27/19 12:00 97.3 70 20 177/87 (117) 65 Room Air Capillary Refill : Less Than 3 Seconds General Appearance: No Apparent Distress, WD/WN, Chronically ill HEENT: Normal ENT Inspection Neck: Full Range of Motion, Normal Inspection, Non Tender, Supple Respiratory: Lungs Clear, Normal Breath Sounds, No Accessory Muscle Use, No Respiratory Distress Cardiovascular: Regular Rate, Rhythm, No Edema Gastrointestinal: Abnormal Bowel Sounds, Other (Decreased bowel sounds) Extremity: Normal Capillary Refill, Normal Inspection, Normal Range of Motion Neurologic/Psychiatric: Alert, Oriented x3 Skin: Normal Color, Warm/Dry Results/Procedures Lab Laboratory Tests 01/27/19 06:23 Patient resulted labs reviewed. Assessment/Plan Assessment and Plan Assess & Plan/Chief Complaint Assessment: SBO Plan: NGT DC Clinimix PT/OT Gastrografin Monday Diagnosis/Problems Diagnosis/Problems (1) Small bowel obstruction Status: Acute (2) Nasogastric tube present Status: Resolved Resolution Date/Time: 01/27/19 @ 13:27 (3) Nausea & vomiting Status: Resolved Qualifiers: Vomiting Intractability: unspecified Resolution Date/Time: 01/27/19 @ 13:27 (4) Anxiety Status: Chronic (5) GERD (gastroesophageal reflux disease) Status: Chronic Qualifiers: Esophagitis presence: without esophagitis Qualified Codes: K21.9 - Gastro- esophageal reflux disease without esophagitis Clinical Quality Measures DVT/VTE Risk/Contraindication: Risk Factor Score Per Nursin RFS Level Per Nursing on Admit: 3=High Contraindications-Pharm: Other *list below* JOVANI CAVAZOS DO Jan 27, 2019 12:48
[2019-01-27] MEDS ORDERED: amLODIPine 5 MG (NORVASC) TAB PO NR (12:58)
[2019-01-27] MEDS: cefTRIAXone 1,000 MG/SWFI 10 ML IV PUSH IV SCH ×2 (20:35)
[2019-01-27] MEDS: fentaNYL INJECTION 100 MCG/2 ML AMP IV PRN (23:47)
[2019-01-28] MEDS: AA 4.25% W/LYTES IN D5W IV SOL 1,000 ML IV SCH ×3 (02:20→13:35)
[2019-01-28 04:30] VITALS: BP 169/86
[2019-01-28] MEDS: METOCLOPRAMIDE INJ 10 MG/2 ML (REGLAN) IVP SCH ×4 (05:53→23:27)
[2019-01-28] MEDS: metroNIDAZOLE 500 MG/100 ML IVPB (PRE-MIX) IV SCH ×3 (05:55→21:46)
[2019-01-28 08:00] VITALS: BP 176/94
[2019-01-28] MEDS: meTOprolol 5 MG/5 ML (LOPRESSOR) VIAL IV SCH ×4 (08:11→23:27)
[2019-01-28 08:28] LABS: BASOPHILS % (AUTO) 0 % (0-10); EOSINOPHILS # (AUTO) 0.1 10^3/uL (0.0-0.3); EOSINOPHILS % (AUTO) 1 % (0-10); HEMATOCRIT 39 % (35-52); HEMOGLOBIN 13.8 G/DL (11.5-16.0); LYMPHOCYTES # (AUTO) 1.5 X 10^3 (1.0-4.0); LYMPHOCYTES % (AUTO) 18 % (12-44); MEAN CORPUSCULAR HEMOGLOBIN 33 PG (25-34); MEAN CORPUSCULAR HGB CONC 35 G/DL (32-36); MEAN CORPUSCULAR VOLUME 94 FL (80-99); MEAN PLATELET VOLUME 9.9 FL (7.4-10.4); MONOCYTES # (AUTO) 1.1 X 10^3 (0.0-1.0); MONOCYTES % (AUTO) 14 % (0-12); NEUTROPHILS # (AUTO) 5.4 X 10^3 (1.8-7.8); NEUTROPHILS % (AUTO) 67 % (42-75); PLATELET COUNT 255 10^3/uL (130-400); WHITE BLOOD COUNT 8.1 10^3/uL (4.3-11.0)
--- NOTE | 2019-01-28 08:29 | Progress Note (SOAP) ---
Subjective Time Seen by a Provider: 08:26 Subjective/Events-last exam Patient feeling okay. Patient in atrial fibrillation with RVR. Patient's pulse rate went up to 180. Consult cardiology. Patient still only passing a little gas. Objective Exam Vital Signs Date Time Temp Pulse Resp B/P (MAP) Pulse Ox O2 Delivery O2 Flow Rate FiO2 01/28/19 06:45 98 01/28/19 04:30 99.0 82 20 169/86 (113) 95 Room Air 01/28/19 01:00 79 01/27/19 23:40 96.9 76 20 168/87 (114) 94 Room Air 01/27/19 20:20 97.9 82 20 174/89 (117) 94 Room Air 01/27/19 20:00 Room Air 01/27/19 19:00 90 01/27/19 16:32 97.2 79 16 161/92 (115) 98 Room Air 01/27/19 13:00 74 01/27/19 12:00 97.3 70 20 177/87 (117) 65 Room Air I & O 01/28/19 07:00 Intake Total 2480 ml Balance 2480 ml Capillary Refill : Less Than 3 Seconds General Appearance: No Apparent Distress, Thin HEENT: Normal ENT Inspection Neck: Normal Inspection, Non Tender Respiratory: Normal Breath Sounds, No Accessory Muscle Use, No Respiratory Distress Cardiovascular: Irregularly Irregular, Tachycardia Gastrointestinal: soft Results Lab Laboratory Tests 01/28/19 08:10: Microbiology 01/26/19 Urine Culture - Preliminary, Resulted Culture In Progress Assessment/Plan Assessment/Plan Assess & Plan/Chief Complaint Small bowel obstruction. Hypertension. Scabies treated. . 01/28/19. Atrial fib with RVR. Small bowel obstruction. Consult cardiology Clinical Quality Measures Admission Status Admission Dx Small bowel obstruction. Large hiatal hernia. DVT/VTE Risk/Contraindication: Risk Factor Score Per Nursin RFS Level Per Nursing on Admit: 3=High Contraindications-Pharm: Other *list below* LORE POWELL DO Jan 28, 2019 08:29
[2019-01-28 08:46] LABS: ALANINE AMINOTRANSFERASE 7 U/L (0-55); ALBUMIN 3.7 GM/DL (3.2-4.5); ALKALINE PHOSPHATASE 32 U/L (40-136); BILIRUBIN,TOTAL 0.5 MG/DL (0.1-1.0); BUN/CREATININE RATIO 30; CALCIUM 8.4 MG/DL (8.5-10.1); CARBON DIOXIDE 21 MMOL/L (21-32); CHLORIDE 94 MMOL/L (98-107); CREATININE SERUM 0.57 MG/DL (0.60-1.30); GFR ESTIMATED > 60; GLUCOSE 147 MG/DL (70-105); SODIUM 126 MMOL/L (135-145); TOTAL PROTEIN 5.8 GM/DL (6.4-8.2)
--- NOTE | 2019-01-28 08:54 | Consultation-Cardiology ---
HPI-Cardiology Cardiology Consultation Date of Consultation 01/28/19 Date of Admission Time Seen by Provider: 08:54 Indication: AFib with RVR HPI Patient is an 88 y/o female with history of paroxysmal atrial flutter and TIA. Primary guyline operator is Dr. Baron. Admitted for SBO. Complaining of some diffuse abdominal pain. Denies any chest pain or dyspnea. Reports can feel her heart race when she is up moving. EKG done this morning reveals AF with RVR. Currently while at rest, HR is in the low 100's. Has been maintained on IV Lopressor BID. Denies any other complaints at this time. This is Dr. Marie, I have seen and evaluated Mrs. Arroyo, she is in a 71 years old lady with history of paroxysmal atrial fibrillation/flutter and history of TIA, was admitted for abdominal pain and small bowel obstruction has been doing well until this morning where she was noted to be back in atrial fibrillation with rapid ventricular response. Her blood pressure is stable. She still having abdominal pain. No nausea or vomiting, no chest pain, no shortness of breath, she was given one dose of IV Lopressor. Heart rate has been increasing with any activity Home Medications & Allergies Allergies: Coded Allergies: NKANo Known Allergies (Unverified Allergy, Mild, 09/23/09) Home Medication List Reviewed: Yes Medication list reviewed [id number] Hx Patient Social History Marital Status: Employed/Student: retired Alcohol Use: Denies Use Recreational Drug Use: No Smoking Status: Never a Smoker Recent Foreign Travel: No Recent Infectious Disease Expo: No Recent Hopitalizations: Yes (CYST/ABSCESS REMOVAL 08/2016) Physical Abuse Screen: No Sexual Abuse: No Past Medical History afib/flutter Family Medical History Significant Family History: No Pertinent Family Hx Family History: Diabetes mellitus 19 MOTHER Review of Systems Constitutional: No dizziness, No fever, No malaise; weakness EENTM: No blurred vision, No double vision, No vision loss, No epistaxis Respiratory: No cough, No dyspnea on exertion, No hemoptysis, No short of breath, No wheezing Cardiovascular: No chest pain; edema, palpitations; No syncope, No vascular heart diseas Gastrointestinal: abdominal pain, nausea; No vomiting Genitourinary: No dysuria, No frequency, No hematuria Musculoskeletal: No back pain, No joint pain Skin: No lesions, No lumps Psychiatric/Neurological: Denies Anxiety Reviewed Test Results Reviewed Test Results Lab Laboratory Tests 01/28/19 08:10: White Blood Count 8.1, Red Blood Count 4.15L, Hemoglobin 13.8, Hematocrit 39, Mean Corpuscular Volume 94, Mean Corpuscular Hemoglobin 33, Mean Corpuscular Hemoglobin Concent 35, Red Cell Distribution Width 13.0, Platelet Count 255, Mean Platelet Volume 9.9, Neutrophils (%) (Auto) 67, Lymphocytes (%) (Auto) 18, Monocytes (%) (Auto) 14H, Eosinophils (%) (Auto) 1, Basophils (%) (Auto) 0, Neutrophils # (Auto) 5.4, Lymphocytes # (Auto) 1.5, Monocytes # (Auto) 1.1H, Eosinophils # (Auto) 0.1, Basophils # (Auto) 0.0, Sodium Level 126L, Potassium Level 3.0L, Chloride Level 94L, Carbon Dioxide Level 21, Anion Gap 11, Blood Urea Nitrogen 17, Creatinine 0.57L, Estimat Glomerular Filtration Rate > 60, BUN /Creatinine Ratio 30, Glucose Level 147H, Calcium Level 8.4L, Corrected Calcium 8.6, Total Bilirubin 0.5, Aspartate Amino Transf (AST/SGOT) 13, Alanine Aminotransferase (ALT/SGPT) 7, Alkaline Phosphatase 32L, Troponin I < 0.028, B- Type Natriuretic Peptide 255.5H, Total Protein 5.8L, Albumin 3.7 Microbiology 01/26/19 Urine Culture - Preliminary, Resulted Culture In Progress ECG Impression ECG Initial ECG Rhythm: A Fib/Flutter Initial ECG Impression: Atrial Fibrillation w/RVR Physical Exam Vital Signs Vital Signs - First Documented 01/23/19 01/23/19 16:36 20:20 Temp 98.2 Pulse 77 Resp 38 B/P (MAP) 111/70 (84) Pulse Ox 94 O2 Delivery Room Air Capillary Refill : Less Than 3 Seconds Height, Weight, BMI Height: 5'5.00" Weight: 129lbs. 8.0oz. [id number]; 21.6 BMI Method:Stated General Appearance: No Apparent Distress, WD/WN HEENT: PERRL/EOMI, Normal ENT Inspection Neck: Full Range of Motion, Normal Inspection, Non Tender, Supple Respiratory: Chest Non Tender, Lungs Clear, Normal Breath Sounds, No Accessory Muscle Use, No Respiratory Distress Cardiovascular: No Gallop, No JVD, Systolic Murmur, Irregularly Irregular, Tachycardia Gastrointestinal: No Pulsatile Mass, Abnormal Bowel Sounds (decreased BS), Distended, Tenderness Rectal: Deferred Back: No CVA Tenderness Extremity: No Calf Tenderness, Pedal Edema (trace BLE) Neurologic/Psychiatric: Alert, Oriented x3 A/P-Cardiology Admission Diagnosis AFib with RVR SBO HTN Anxiety GERD Assessment/Plan Afib with RVR- currently in afib with HR in low 100's while at rest. I will change IV Lopressor to 5mg q 6 hrs, add heparin gtt. 2D Echo done February 2018 revealed normal LV with EF 55-60%, no LA enlargement. Continue to monitor. History of TIA, has been maintained on Eliquis in the past. Currently not receiving any oral anticoagulation, and did not receive oral anticoagulation prior to admission SBO- Dr. Karen granado. Currently on clear liquid diet. HTN- continue to monitor BP/HR Anxiety GERD Thank you for allowing us to participate in the management of Ms. Arroyo. This is Sarahi Russell PA-C, as a scribe for Dr. Marie. This is Dr. Marie, I have seen and evaluated the patient with Sarahi, examined the patient and discussed the management plan and agree with the current scribed note, in summary this is an 88-year-old lady who was admitted with small bowel obstruction, has been on clear liquid diet, was in sinus rhythm on admission and noted today to be in atrial fibrillation with rapid ventricular response. On examination lungs were clear to auscultation bilaterally, heart is irregular and borderline tachycardic and having mild abdominal pain. She is in atrial fibrillation with rapid ventricular response, I started her on IV Lopressor 5 mg every 6 hours in addition I'm starting heparin drip to reduce the risk of stroke. Continue to monitor blood pressure. , I made few modifications to the note and used Italic Font Clinical Quality Measures DVT/VTE Risk/Contraindication: Risk Factor Score Per Nursin RFS Level Per Nursing on Admit: 3=High Contraindications-Pharm: Other *list below* SARAHI RIVERA Jan 28, 2019 8:54 am BRENTON MARIE MD Jan 28, 2019 12:31 pm
[2019-01-28] MEDS ORDERED: HEParin 1000 UNIT/ML (10ML VIAL) FOR BOLUS IV SCH (09:00)
--- NOTE | 2019-01-28 09:53 | Diagnostic Imaging Report ---
INDICATION: Abdominal pain and distention. COMPARISON: 01/26/2019 FINDINGS: Two supine radiographic views of the abdomen were obtained and continue to show diffuse gaseous distention of the small bowel, not significantly changed compared to 01/26/2019. There is no large collection of free intraperitoneal air, although evaluation is somewhat suboptimal given supine positioning. No unexpected extraosseous calcifications or radiopaque foreign bodies are seen. Bony structures show age-related degenerative changes. IMPRESSION: 1. Stable diffuse gaseous distention of the small bowel suspicious for underlying small bowel obstruction. Dictated by: Dictated on workstation # [id number]
[2019-01-28] MEDS: HEParin 1000 UNIT/ML BOLUS (FULL THERAPY) IV PRN (10:36)
[2019-01-28] MEDS: HEParin DRIP 25000 UNIT/500ML (FULL THERAPY) IV SCH (10:39)
--- NOTE | 2019-01-28 11:08 | Physical Therapy Daily Note ---
PT Daily Note-Current Subjective Patient report she is very tired but agrees to PT. Pain Numeric Pain Scale: 0-No Pain Location: No Pain Reported Mental Status Patient Orientation: Normal For Age Attachments: IV Transfers Therapy Code Descriptions/Definitions Functional [place] Measure: 0=Not Assessed/NA 4=Minimal Assistance 1=Total Assistance 5=Supervision or Setup 2=Maximal Assistance 6=Modified [place] 3=Moderate Assistance 7=Complete [place] Therapy Quality Codes: 6 Independent with activity with or without an assistive device 5 Patient requires set up or clean up by helper. Patient completes activity by themselves 4 Supervision or touching assist (CGA). [place] provide cues , steadying assist 3 The helper provides less than half the effort to complete the activity 2 The helper provides more than half the effort to complete the activity 1 Dependent. The helper does all the effort to complete an activity 7 Patient refused to complete or attempt activity 9 The patient did not perform the activity before the current illness or injury 88 Not attempted due to Medical conditions or safety concerns Transfers (B, C, W/C) (FIM): 5 Scootin Rollin Supine to/from Sit: 5 Sit to/from Stand: 5 Bed to/from Chair: 5 Weight Bearing Right Lower Extremity: Right Weight Bearing/Tolerated Left Lower Extremity: Left Weight Bearing/Tolerated Gait Training Gait (FIM): 5 Distance (FIM): 3=150 ft Distance: 225' Gait Level of Assist: 5 Gait Assistive Device: FWW kyphotic posture/safe and functional gait sequence with FWW/VC's for body placement in FWW during gait Assessment Patient returned to bed with 4 rails up without difficulty. PT to increase activity as tolerated by patient. PT Longterm Goals Longterm Goals PT Longterm Goals Time Frame: Feb 01, 2019 Transfers (B,C,W/C) (FIM): 6 Gait (FIM): 5 Gait distance (FIM): 3=150 ft Distance: 300 Gait Level of Assist: 5 Gait Assistive Device: FWW PT Plan Treatment/Plan Treatment Plan: Continue Plan of Care Treatment Plan: Bed Mobility, Gait, Safety, Transfers Treatment Duration: Feb 01, 2019 Frequency: 6 times per week Estimated Hrs Per Day: .25 hour per day Patient and/or Family Agrees t: Yes Time/GCodes Time In: 1047 Time Out: 1058 Total Billed Treatment Time: 11 Total Billed Treatment 1 visit GT 11 min ANAHI JOHNSON PT Jan 28, 2019 11:08
--- NOTE | 2019-01-28 11:37 | NUR ---
0742 PT AMBULATING TO BATHROOM WITH ASSIST OF PCT, [employer]PER[employer]OR CALLED AND STATES PT HEART RATE IN THE 180'S. DR POWELL ON FLOOR AND NEW ORDERS RECEIVED. 3600 DR WHITLOCK NOTIFIED OF CONSULT
[2019-01-28 12:00] VITALS: BP 158/78
--- NOTE | 2019-01-28 12:51 | NUR ---
DR POWELL CALLED NEW ORDERS RECEIVED TO CHECK CBC,CMP IN AM, AND TO GIVE KCL 40MEQ PO X 1 DOSE NOW. ORDERS ENTERED.
[2019-01-28] MEDS ORDERED: KCL 20 MEQ TAB (K-DUR) PO NR (13:00)
--- NOTE | 2019-01-28 14:06 | NUR ---
1345 DR LIM ON FLOOR NEW VERBAL ORDERS RECEIVED TO INCREASE REGLAN TO 10 MG IV EVERY 6 HOURS.
--- NOTE | 2019-01-28 14:10 | NUR ---
Pastoral care visit.
--- NOTE | 2019-01-28 14:10 | Progress Note (SOAP) ---
Subjective Date Seen by a Provider: Jan 28, 2019 Time Seen by a Provider: 13:00 Subjective/Events-last exam doing ok. tolerating clears with no nausea/vomiting. has not had anymore bowel fxn since yesterday. Objective Exam Vital Signs Date Time Temp Pulse Resp B/P (MAP) Pulse Ox O2 Delivery O2 Flow Rate FiO2 01/28/19 12:00 97.3 69 20 158/78 (104) 97 Room Air 01/28/19 08:00 98.4 139 20 176/94 (121) 94 Room Air 01/28/19 06:45 98 01/28/19 04:30 99.0 82 20 169/86 (113) 95 Room Air 01/28/19 01:00 79 01/27/19 23:40 96.9 76 20 168/87 (114) 94 Room Air 01/27/19 20:20 97.9 82 20 174/89 (117) 94 Room Air 01/27/19 20:00 Room Air 01/27/19 19:00 90 01/27/19 16:32 97.2 79 16 161/92 (115) 98 Room Air I & O 01/28/19 07:00 Intake Total 2480 ml Balance 2480 ml Capillary Refill : Less Than 3 Seconds General Appearance: No Apparent Distress HEENT: PERRL/EOMI Neck: Full Range of Motion Respiratory: Chest Non Tender, Lungs Clear, Normal Breath Sounds Cardiovascular: Regular Rate, Rhythm Gastrointestinal: soft, distended Extremity: Normal Capillary Refill Neurologic/Psychiatric: Alert, Oriented x3 Skin: Normal Color Lymphatic: No Adenopathy Results Lab Laboratory Tests 01/28/19 08:10: White Blood Count 8.1, Red Blood Count 4.15L, Hemoglobin 13.8, Hematocrit 39, Mean Corpuscular Volume 94, Mean Corpuscular Hemoglobin 33, Mean Corpuscular Hemoglobin Concent 35, Red Cell Distribution Width 13.0, Platelet Count 255, Mean Platelet Volume 9.9, Neutrophils (%) (Auto) 67, Lymphocytes (%) (Auto) 18, Monocytes (%) (Auto) 14H, Eosinophils (%) (Auto) 1, Basophils (%) (Auto) 0, Neutrophils # (Auto) 5.4, Lymphocytes # (Auto) 1.5, Monocytes # (Auto) 1.1H, Eosinophils # (Auto) 0.1, Basophils # (Auto) 0.0, Sodium Level 126L, Potassium Level 3.0L, Chloride Level 94L, Carbon Dioxide Level 21, Anion Gap 11, Blood Urea Nitrogen 17, Creatinine 0.57L, Estimat Glomerular Filtration Rate > 60, BUN /Creatinine Ratio 30, Glucose Level 147H, Calcium Level 8.4L, Corrected Calcium 8.6, Total Bilirubin 0.5, Aspartate Amino Transf (AST/SGOT) 13, Alanine Aminotransferase (ALT/SGPT) 7, Alkaline Phosphatase 32L, Troponin I < 0.028, B- Type Natriuretic Peptide 255.5H, Total Protein 5.8L, Albumin 3.7 01/28/19 10:20: Activated Partial Thromboplast Time 28 Microbiology 01/26/19 Urine Culture - Preliminary, Resulted Culture In Progress Assessment/Plan Assessment/Plan Assess & Plan/Chief Complaint PSBO. increase ambulation. increase reglan. continue clear liquids for now. Clinical Quality Measures DVT/VTE Risk/Contraindication: Risk Factor Score Per Nursin RFS Level Per Nursing on Admit: 3=High Contraindications-Pharm: Other *list below* HIWOT LIM MD Jan 28, 2019 14:10
[2019-01-28 16:13] VITALS: BP 158/88
[2019-01-28] MEDS: cefTRIAXone 1,000 MG/SWFI 10 ML IV PUSH IV SCH ×2 (20:35)
[2019-01-28 20:48] VITALS: BP 143/76
[2019-01-28] MEDS: fentaNYL INJECTION 100 MCG/2 ML AMP IV PRN (22:21)
[2019-01-28] MEDS: LORazepam INJ 2 MG/ML (ATIVAN) VIAL IVP PRN (23:28)
[2019-01-29] VITALS: BP 168/88
[2019-01-29] MEDS: AA 4.25% W/LYTES IN D5W IV SOL 1,000 ML IV SCH ×3 (01:45→21:03)
[2019-01-29 04:00] VITALS: BP 162/84
[2019-01-29] MEDS: metroNIDAZOLE 500 MG/100 ML IVPB (PRE-MIX) IV SCH ×3 (06:18→21:07)
[2019-01-29] MEDS: meTOprolol 5 MG/5 ML (LOPRESSOR) VIAL IV SCH ×4 (06:18→23:15)
[2019-01-29] MEDS: METOCLOPRAMIDE INJ 10 MG/2 ML (REGLAN) IVP SCH ×4 (06:19→23:15)
[2019-01-29 06:35] LABS: BASOPHILS % (AUTO) 0 % (0-10); EOSINOPHILS # (AUTO) 0.1 10^3/uL (0.0-0.3); EOSINOPHILS % (AUTO) 1 % (0-10); HEMATOCRIT 37 % (35-52); HEMOGLOBIN 13.1 G/DL (11.5-16.0); LYMPHOCYTES # (AUTO) 1.4 X 10^3 (1.0-4.0); LYMPHOCYTES % (AUTO) 14 % (12-44); MEAN CORPUSCULAR HEMOGLOBIN 33 PG (25-34); MEAN CORPUSCULAR HGB CONC 35 G/DL (32-36); MEAN CORPUSCULAR VOLUME 94 FL (80-99); MEAN PLATELET VOLUME 10.2 FL (7.4-10.4); MONOCYTES # (AUTO) 1.2 X 10^3 (0.0-1.0); MONOCYTES % (AUTO) 12 % (0-12); NEUTROPHILS # (AUTO) 6.8 X 10^3 (1.8-7.8); NEUTROPHILS % (AUTO) 72 % (42-75); PLATELET COUNT 233 10^3/uL (130-400); RED CELL DISTRIBUTION WIDTH 12.5 % (10.0-14.5); WHITE BLOOD COUNT 9.5 10^3/uL (4.3-11.0)
[2019-01-29 06:59] LABS: ALANINE AMINOTRANSFERASE 7 U/L (0-55); ALBUMIN 3.6 GM/DL (3.2-4.5); ALKALINE PHOSPHATASE 33 U/L (40-136); BILIRUBIN,TOTAL 0.4 MG/DL (0.1-1.0); BUN/CREATININE RATIO 30; CALCIUM 8.4 MG/DL (8.5-10.1); CARBON DIOXIDE 23 MMOL/L (21-32); CHLORIDE 96 MMOL/L (98-107); CREATININE SERUM 0.57 MG/DL (0.60-1.30); GFR ESTIMATED > 60; GLUCOSE 138 MG/DL (70-105); POTASSIUM 3.8 MMOL/L (3.6-5.0); TOTAL PROTEIN 5.7 GM/DL (6.4-8.2)
[2019-01-29 07:00] LABS: SODIUM 125 MMOL/L (135-145)
[2019-01-29 08:00] VITALS: BP 184/93
[2019-01-29] MEDS: PANTOPRAZOLE 40 MG (PROTONIX) VIAL IV SCH (08:04)
[2019-01-29] MEDS: fentaNYL INJECTION 100 MCG/2 ML AMP IV PRN ×4 (08:05→23:15)
--- NOTE | 2019-01-29 08:12 | Cardiology Progress Note ---
Subjective Date Seen by Provider: Jan 29, 2019 Time Seen by Provider: 08:09 Subjective/Events-last exam patient is sitting in a chair, still having abdominal pain. Blood pressure is elevated today. Review of Systems General: No Chills, No Night Sweats, No Fatigue, No Malaise, No Appetite, No Other HEENT: No Head Aches, No Visual Changes, No Eye Pain, No Ear Pain, No Dysphasia , No Sinus Congestion, No Post Nasal Drip, No Sore Throat, No Other Pulmonary: No Dyspnea, No Cough, No Pleuritic Chest Pain, No Other Cardiovascular: No: Chest Pain, Palpitations, Orthopnea, Paroxysmal Noc. Dyspnea, Edema, Lt Headedness, Other Objective-Cardiology Exam Last Set of Vital Signs Vital Signs 01/29/19 01/29/19 04:00 07:00 Temp 98.4 Pulse 72 Resp 18 B/P (MAP) 162/84 (110) Pulse Ox 94 O2 Delivery Room Air Capillary Refill : Less Than 3 Seconds I&O Intake and Output 01/28/19 23:59 Intake Total 2270 ml Balance 2270 ml Intake Oral 1270 ml IV Total 1000 ml # Voids 5 # Urine Diapers 5 General: Alert, Oriented X3, Cooperative HEENT: Atraumatic, PERRLA Neck: Supple, No JVD, No Thyromegaly Lungs: Clear to Auscultation, Normal Air Movement Heart: Normal S1, Normal S2, No Murmurs, Other (atrial fibrillation) Abdomen: Soft, No Hepatosplenomegaly, No Masses, Other (abdominal pain) Extremities: No Clubbing, No Cyanosis, No Edema, Normal Pulses, No Tenderness/ Swelling Skin: No Rashes, No Breakdown, No Significant Lesion Neuro: Normal Gait, Normal Speech, Strength at 5/5 X4 Ext, Normal Tone, Sensation Intact Psych/Mental Status: Mental Status NL, Mood NL Results Lab Laboratory Tests 01/28/19 08:10 01/29/19 06:16 A/P-Cardiology Admission Diagnosis AFib with RVR SBO HTN Anxiety GERD Assessment/Plan Chronic persistent atrial fibrillation, heart rate is better controlled. Continue on IV beta blockers and heparin drip and monitor. Once she can tolerate oral medication will switch her and evaluate her response. Labile hypertension, poorly controlled, maintained on IV Lopressor, given additional dose of clonidine today. Still having significant abdominal pain. Small bowel obstruction, abdominal pain, worsening today, received some pain medication, has been managed by Dr. Jones and maintained on clear liquid diet. History of TIA, has been maintained on Eliquis in the past, currently receiving IV heparin drip due to the fact that she might require surgery. Gastroesophageal reflux disease, continue to monitor Anxiety. Continue to monitor Clinical Quality Measures DVT/VTE Risk/Contraindication: Risk Factor Score Per Nursin RFS Level Per Nursing on Admit: 3=High Contraindications-Pharm: Other *list below* BRENTON WHITLOCK MD Jan 29, 2019 08:12
--- NOTE | 2019-01-29 08:15 | Progress Note (SOAP) ---
Subjective Time Seen by a Provider: 08:13 Subjective/Events-last exam Patient not feeling great. Patient in sinus rhythm. Patient to have small bowel follow-through. Patient states she's not passing gas today. Hypertension. Sodium 125 Objective Exam Vital Signs Date Time Temp Pulse Resp B/P (MAP) Pulse Ox O2 Delivery O2 Flow Rate FiO2 01/29/19 07:00 72 01/29/19 04:00 98.4 83 18 162/84 (110) 94 Room Air 01/29/19 01:00 77 01/29/19 00:00 98.2 78 18 168/88 (114) 94 Room Air 01/28/19 20:48 98.1 72 18 143/76 (98) 98 Room Air 01/28/19 19:00 78 01/28/19 16:13 98.2 73 20 158/88 (111) 96 Room Air 01/28/19 12:00 97.3 69 20 158/78 (104) 97 Room Air I & O 01/29/19 07:00 Intake Total 2070 ml Balance 2070 ml Capillary Refill : Less Than 3 Seconds General Appearance: No Apparent Distress, Thin HEENT: Normal ENT Inspection Neck: Full Range of Motion, Normal Inspection Respiratory: Lungs Clear, No Accessory Muscle Use, No Respiratory Distress Cardiovascular: Regular Rate, Rhythm Gastrointestinal: non tender, distended Results Lab Laboratory Tests 01/29/19 06:16 Laboratory Tests 01/28/19 10:20: Activated Partial Thromboplast Time 28 01/28/19 15:03: Activated Partial Thromboplast Time 89H 01/28/19 22:04: Activated Partial Thromboplast Time 108H 01/29/19 06:16: White Blood Count 9.5, Red Blood Count 3.96L, Hemoglobin 13.1, Hematocrit 37, Mean Corpuscular Volume 94, Mean Corpuscular Hemoglobin 33, Mean Corpuscular Hemoglobin Concent 35, Red Cell Distribution Width 12.5, Platelet Count 233, Mean Platelet Volume 10.2, Neutrophils (%) (Auto) 72, Lymphocytes (%) (Auto) 14 , Monocytes (%) (Auto) 12, Eosinophils (%) (Auto) 1, Basophils (%) (Auto) 0, Neutrophils # (Auto) 6.8, Lymphocytes # (Auto) 1.4, Monocytes # (Auto) 1.2H, Eosinophils # (Auto) 0.1, Basophils # (Auto) 0.0, Sodium Level 125*L, Potassium Level 3.8, Chloride Level 96L, Carbon Dioxide Level 23, Anion Gap 6, Blood Urea Nitrogen 17, Creatinine 0.57L, Estimat Glomerular Filtration Rate > 60, BUN/ Creatinine Ratio 30, Glucose Level 138H, Calcium Level 8.4L, Corrected Calcium 8.7, Total Bilirubin 0.4, Aspartate Amino Transf (AST/SGOT) 13, Alanine Aminotransferase (ALT/SGPT) 7, Alkaline Phosphatase 33L, Total Protein 5.7L, Albumin 3.6 Microbiology 01/26/19 Urine Culture - Preliminary, Resulted YEAST Assessment/Plan Assessment/Plan Assess & Plan/Chief Complaint Small bowel obstruction. Hypertension. Scabies treated. . 01/28/19. Atrial fib with RVR. Small bowel obstruction. Consult cardiology. . 01/29/19. Patient in sinus rhythm. Small bowel obstruction. Hypertension. Scabies. Past small bowel studies today Clinical Quality Measures Admission Status Admission Dx Small bowel obstruction. Large hiatal hernia. DVT/VTE Risk/Contraindication: Risk Factor Score Per Nursin RFS Level Per Nursing on Admit: 3=High Contraindications-Pharm: Other *list below* LORE POWELL DO Jan 29, 2019 08:15
--- NOTE | 2019-01-29 10:39 | Physical Therapy Progress Note ---
Therapy Progress Note Patient is unavailable this a.m. due to procedure. Will attempt in p.m. ANAHI JOHNSON PT Jan 29, 2019 10:39
[2019-01-29] MEDS: lisINopril 5 MG (PRINIVIL) TABLET PO SCH (10:51)
[2019-01-29] MEDS: HEParin DRIP 25000 UNIT/500ML (FULL THERAPY) IV SCH (10:56)
[2019-01-29 12:08] VITALS: BP 173/99
--- NOTE | 2019-01-29 12:31 | Progress Note (SOAP) ---
Subjective Date Seen by a Provider: Jan 29, 2019 Time Seen by a Provider: 12:00 Subjective/Events-last exam more abd distention today. still no bowel fxn. GI series ordered for today. VSS , afebrile with normal WBC. Objective Exam Vital Signs Date Time Temp Pulse Resp B/P (MAP) Pulse Ox O2 Delivery O2 Flow Rate FiO2 01/29/19 12:08 88 20 173/99 (123) 94 Room Air 01/29/19 08:05 Room Air 01/29/19 08:00 99.4 78 18 184/93 (123) 95 Room Air 01/29/19 07:00 72 01/29/19 04:00 98.4 83 18 162/84 (110) 94 Room Air 01/29/19 01:00 77 01/29/19 00:00 98.2 78 18 168/88 (114) 94 Room Air 01/28/19 20:48 98.1 72 18 143/76 (98) 98 Room Air 01/28/19 19:00 78 01/28/19 16:13 98.2 73 20 158/88 (111) 96 Room Air I & O 01/29/19 07:00 Intake Total 2070 ml Balance 2070 ml Capillary Refill : Less Than 3 Seconds General Appearance: No Apparent Distress HEENT: PERRL/EOMI Neck: Full Range of Motion Respiratory: Chest Non Tender, Lungs Clear, Normal Breath Sounds Cardiovascular: Regular Rate, Rhythm Gastrointestinal: soft, distended Extremity: Normal Capillary Refill Neurologic/Psychiatric: Alert, Oriented x3 Skin: Normal Color Lymphatic: No Adenopathy Results Lab Laboratory Tests 01/28/19 15:03: Activated Partial Thromboplast Time 89H 01/28/19 22:04: Activated Partial Thromboplast Time 108H 01/29/19 06:16: White Blood Count 9.5, Red Blood Count 3.96L, Hemoglobin 13.1, Hematocrit 37, Mean Corpuscular Volume 94, Mean Corpuscular Hemoglobin 33, Mean Corpuscular Hemoglobin Concent 35, Red Cell Distribution Width 12.5, Platelet Count 233, Mean Platelet Volume 10.2, Neutrophils (%) (Auto) 72, Lymphocytes (%) (Auto) 14 , Monocytes (%) (Auto) 12, Eosinophils (%) (Auto) 1, Basophils (%) (Auto) 0, Neutrophils # (Auto) 6.8, Lymphocytes # (Auto) 1.4, Monocytes # (Auto) 1.2H, Eosinophils # (Auto) 0.1, Basophils # (Auto) 0.0, Sodium Level 125*L, Potassium Level 3.8, Chloride Level 96L, Carbon Dioxide Level 23, Anion Gap 6, Blood Urea Nitrogen 17, Creatinine 0.57L, Estimat Glomerular Filtration Rate > 60, BUN/ Creatinine Ratio 30, Glucose Level 138H, Calcium Level 8.4L, Corrected Calcium 8.7, Total Bilirubin 0.4, Aspartate Amino Transf (AST/SGOT) 13, Alanine Aminotransferase (ALT/SGPT) 7, Alkaline Phosphatase 33L, Total Protein 5.7L, Albumin 3.6 Microbiology 01/26/19 Urine Culture - Preliminary, Resulted YEAST Assessment/Plan Assessment/Plan Assess & Plan/Chief Complaint PSBO. increase ambulation. increase reglan. upper GI series today. if no progression will likely need surgery. Clinical Quality Measures DVT/VTE Risk/Contraindication: Risk Factor Score Per Nursin RFS Level Per Nursing on Admit: 3=High Contraindications-Pharm: Other *list below* HIWOT LIM MD Jan 29, 2019 12:31
[2019-01-29] MEDS: CIPROFLOXACIN IV 400MG/200ML 200 ML IV SCH (13:25)
--- NOTE | 2019-01-29 13:51 | Physical Therapy Progress Note ---
Therapy Progress Note Patient declined PT stating, "I have had enough go on today and I'm exhausted. I will participate tomorrow. I promise." This PT respects patient wishes. 1 ref ANAHI JOHNSON PT Jan 29, 2019 13:51
[2019-01-29] MEDS ORDERED: DIATRIZOATE MEGLUM/SODIUM 37% 120 ML (GASTROGRAFIN) PO ONE (14:45)
--- NOTE | 2019-01-29 15:18 | Diagnostic Imaging Report ---
INDICATION: Abdominal distention and pain. PROCEDURE: Small bowel follow through TECHNIQUE: The patient drank 120 mL of Gastrografin mixed with 120 mL of water and cereal radiographs of the abdomen were obtained. FINDINGS: [employer] radiograph does show moderate gaseous distention of bowel loops throughout the abdomen. 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 However, contrast does freely pass out of the stomach into the proximal small bowel loops. No definite gastric outlet obstruction is seen. Imaging was carried out to approximately 5 hours. There is opacification of proximal and mid small bowel loops. Distal small bowel loops were not opacified. The colon was not opacified. The study was terminated. IMPRESSION: There is gaseous distention of small bowel. 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 There is delayed transit of contrast through the small bowel, perhaps owing to ileus versus distal obstruction. Dictated by: Dictated on workstation # [id number]
[2019-01-29 15:22] VITALS: BP 167/80
--- NOTE | 2019-01-29 16:46 | NUR ---
DR LIM CALLED NEW ORDERS RECEIVED. SEE ORDERS
[2019-01-29] MEDS: LORazepam INJ 2 MG/ML (ATIVAN) VIAL IVP PRN (17:14)
--- NOTE | 2019-01-29 17:28 | Progress Note-Pre Operative ---
Pre-Operative Progress Note H&P Reviewed The H&P was reviewed, patient examined and no changes noted. Date Seen by Provider: Jan 29, 2019 Time Seen by Provider: 17:27 Date H&P Reviewed: Jan 29, 2019 Time H&P Reviewed: 17:27 Pre-Operative Diagnosis: persistent symptomatic small bowel obstruction. HIWOT LIM MD Jan 29, 2019 17:28
--- NOTE | 2019-01-29 18:01 | NUR ---
3090 16 HONDURAN NGT PLACED IN RIGHT NARES BY DESTINY WEIR. IMMEDIATE RETURN OF 1000 CC OF GREEN BILE NOTED, PT TOLERATED PLACEMENT WITHOUT DIFFICULTY, ATIVAN GIVEN PRIOR TO PLACEMENT. PT VOICES NO C/O OF PAIN AT THIS TIME, CALL LIGHT AND OTHER PERSONAL ITEMS WITHIN REACH, MULTIPLE FAMILY MEMBERS AT BEDSIDE, WILL CONTINUE TO MONITOR.
[2019-01-29] MEDS ORDERED: CHLORASEPTIC SPRAY 177 ML LIQUID MC PRN (18:30)
[2019-01-29 20:00] VITALS: BP 161/79
[2019-01-29] MEDS: cefTRIAXone 1,000 MG/SWFI 10 ML IV PUSH IV SCH ×2 (21:03)
[2019-01-30] VITALS: BP 161/79
[2019-01-30] MEDS: CIPROFLOXACIN IV 400MG/200ML 200 ML IV SCH ×2 (01:13→14:11)
[2019-01-30 04:00] VITALS: BP 159/72
[2019-01-30] MEDS: fentaNYL INJECTION 100 MCG/2 ML AMP IV PRN (05:32)
[2019-01-30] MEDS: METOCLOPRAMIDE INJ 10 MG/2 ML (REGLAN) IVP SCH ×3 (05:32→19:05)
[2019-01-30] MEDS: meTOprolol 5 MG/5 ML (LOPRESSOR) VIAL IV SCH ×2 (05:32→14:00)
[2019-01-30] MEDS: metroNIDAZOLE 500 MG/100 ML IVPB (PRE-MIX) IV SCH ×2 (05:33→15:50)
[2019-01-30 06:30] LABS: HEMOGLOBIN 12.3 G/DL (11.5-16.0); MEAN PLATELET VOLUME 10.2 FL (7.4-10.4); RED CELL DISTRIBUTION WIDTH 13.1 % (10.0-14.5); WHITE BLOOD COUNT 9.3 10^3/uL (4.3-11.0)
[2019-01-30] MEDS: AA 4.25% W/LYTES IN D5W IV SOL 1,000 ML IV SCH ×2 (06:45→18:14)
--- NOTE | 2019-01-30 06:54 | NUR ---
INFORMED DR. LIM THAT NG FELL OUT DURING THE NIGHT AND THAT PATIENT HAS NOT HAD ANY NAUSEA AND THAT SHE HAS BEEN PASSING GAS AND HAVING BMs. ALSO INFORMED HIM THAT PTT IS 126 THIS AM. RECEIVED ORDER FOR NG TO BE LEFT OUT.
[2019-01-30 07:14] LABS: ALANINE AMINOTRANSFERASE 6 U/L (0-55); ALBUMIN 3.4 GM/DL (3.2-4.5); ALKALINE PHOSPHATASE 28 U/L (40-136); BILIRUBIN,TOTAL 0.3 MG/DL (0.1-1.0); BUN/CREATININE RATIO 35; CALCIUM 8.2 MG/DL (8.5-10.1); CARBON DIOXIDE 25 MMOL/L (21-32); CHLORIDE 95 MMOL/L (98-107); CREATININE SERUM 0.57 MG/DL (0.60-1.30); GFR ESTIMATED > 60; GLUCOSE 109 MG/DL (70-105); POTASSIUM 3.9 MMOL/L (3.6-5.0); SODIUM 129 MMOL/L (135-145); TOTAL PROTEIN 5.3 GM/DL (6.4-8.2)
[2019-01-30] MEDS ORDERED: HEParin (CENTRAL IV FLUSH) 500 UNIT/5 ML SYR ONE (07:55)
[2019-01-30] MEDS ORDERED: BUP/EPI 0.5% 1:200,000 (SENSORCAINE) 30 ML VIAL ONE (07:55)
[2019-01-30 08:00] VITALS: BP 156/86
[2019-01-30] MEDS ORDERED: VASOPRESSIN INJECTION 20 UNIT/ML VIAL ONE (08:04)
--- NOTE | 2019-01-30 08:09 | Cardiology Progress Note ---
Subjective Date Seen by Provider: Jan 30, 2019 Time Seen by Provider: 08:06 Subjective/Events-last exam Patient is in bed, scheduled for surgery today, no chest pain Review of Systems General: No Chills, No Night Sweats; Fatigue, Malaise; No Appetite, No Other HEENT: No Head Aches, No Visual Changes, No Eye Pain, No Ear Pain, No Dysphasia , No Sinus Congestion, No Post Nasal Drip, No Sore Throat, No Other Pulmonary: No Dyspnea, No Cough, No Pleuritic Chest Pain, No Other Cardiovascular: No: Chest Pain, Palpitations, Orthopnea, Paroxysmal Noc. Dyspnea, Edema, Lt Headedness, Other Objective-Cardiology Exam Last Set of Vital Signs Vital Signs 01/30/19 04:00 Temp 98.9 Pulse 79 Resp 20 B/P (MAP) 159/72 (101) Pulse Ox 96 O2 Delivery Room Air Capillary Refill : Less Than 3 Seconds I&O Intake and Output 01/30/19 00:00 Intake Total 1650 ml Output Total 1300 ml Balance 350 ml Intake Oral 340 ml IV Total 1310 ml Gastric Drainage Total 1300 ml # Voids 9 # Bowel Movements 1 General: Alert, Oriented X3, Cooperative HEENT: Atraumatic, PERRLA Neck: Supple, No JVD, No Thyromegaly Lungs: Clear to Auscultation, Normal Air Movement Heart: Normal S1, Normal S2, No Murmurs, Other (atrial fibrillation) Abdomen: Soft, No Hepatosplenomegaly, No Masses, Other (abdominal pain) Extremities: No Clubbing, No Cyanosis, No Edema, Normal Pulses, No Tenderness/ Swelling Skin: No Rashes, No Breakdown, No Significant Lesion Neuro: Normal Gait, Normal Speech, Strength at 5/5 X4 Ext, Normal Tone, Sensation Intact Psych/Mental Status: Mental Status NL, Mood NL Results Lab Laboratory Tests 01/30/19 06:00 A/P-Cardiology Admission Diagnosis AFib with RVR SBO HTN Anxiety GERD Assessment/Plan Chronic persistent atrial fibrillation, heart rate is better controlled. Continue on IV beta blockers and heparin drip and monitor. Once she can tolerate oral medication will switch her and evaluate her response. Labile hypertension, poorly controlled, scheduled for surgery today, continue to monitor Small bowel obstruction, had a bowel movement today, pain is slightly better, scheduled for surgery today, followed by Dr. Jones History of TIA, has been maintained on Eliquis in the past, currently receiving IV heparin drip Gastroesophageal reflux disease, continue to monitor Anxiety. Continue to monitor Preoperative cardiac evaluation, patient is considered at intermediate risk for perioperative cardiovascular complications, may hold Heparin for surgery Clinical Quality Measures DVT/VTE Risk/Contraindication: Risk Factor Score Per Nursin RFS Level Per Nursing on Admit: 3=High Contraindications-Pharm: Other *list below* BRENTON WHITLOCK MD Jan 30, 2019 08:09
--- NOTE | 2019-01-30 08:15 | Progress Note (SOAP) ---
Subjective Time Seen by a Provider: 08:13 Subjective/Events-last exam Patient feeling better today. Patient had bowel movement last night. Patient had bowel movement this morning. Patient passing gas. Objective Exam Vital Signs Date Time Temp Pulse Resp B/P (MAP) Pulse Ox O2 Delivery O2 Flow Rate FiO2 01/30/19 04:00 98.9 79 20 159/72 (101) 96 Room Air 01/30/19 01:00 78 01/30/19 00:00 97.7 114 18 161/79 (106) 94 Room Air 01/29/19 20:00 Room Air 01/29/19 20:00 99.1 76 16 161/79 (106) 96 Room Air 01/29/19 19:00 71 01/29/19 15:22 98.6 76 18 167/80 (109) 95 Room Air 01/29/19 13:00 68 01/29/19 12:08 88 20 173/99 (123) 94 Room Air I & O 01/30/19 07:00 Intake Total 1850 ml Output Total 1300 ml Balance 550 ml Capillary Refill : Less Than 3 Seconds General Appearance: No Apparent Distress, Thin HEENT: Normal ENT Inspection Neck: Full Range of Motion, Normal Inspection Respiratory: Lungs Clear, No Accessory Muscle Use, No Respiratory Distress Cardiovascular: Regular Rate, Rhythm, No Murmur Gastrointestinal: non tender, soft Results Lab Laboratory Tests 01/29/19 22:02: Activated Partial Thromboplast Time 120*H 01/30/19 06:00: Activated Partial Thromboplast Time 126*H, White Blood Count 9.3, Red Blood Count 3.71L, Hemoglobin 12.3, Hematocrit 35, Mean Corpuscular Volume 94, Mean Corpuscular Hemoglobin 33, Mean Corpuscular Hemoglobin Concent 35, Red Cell Distribution Width 13.1, Platelet Count 244, Mean Platelet Volume 10.2, Sodium Level 129L, Potassium Level 3.9, Chloride Level 95L, Carbon Dioxide Level 25, Anion Gap 9, Blood Urea Nitrogen 20H, Creatinine 0.57L, Estimat Glomerular Filtration Rate > 60, BUN/Creatinine Ratio 35, Glucose Level 109H, Calcium Level 8.2L, Corrected Calcium 8.7, Total Bilirubin 0.3, Aspartate Amino Transf ( AST/SGOT) 12, Alanine Aminotransferase (ALT/SGPT) 6, Alkaline Phosphatase 28L, Total Protein 5.3L, Albumin 3.4 Microbiology 01/26/19 Urine Culture - Preliminary, Resulted YEAST Assessment/Plan Assessment/Plan Assess & Plan/Chief Complaint Small bowel obstruction. Hypertension. Scabies treated. . 01/28/19. Atrial fib with RVR. Small bowel obstruction. Consult cardiology. . 01/29/19. Patient in sinus rhythm. Small bowel obstruction. Hypertension. Scabies. Past small bowel studies today. . 01/30/19. Patient in sinus rhythm. Small bowel obstruction. Hypertension. Patient had 2 bowel movements. Clinical Quality Measures Admission Status Admission Dx Small bowel obstruction. Large hiatal hernia. DVT/VTE Risk/Contraindication: Risk Factor Score Per Nursin RFS Level Per Nursing on Admit: 3=High Contraindications-Pharm: Other *list below* LORE POWELL DO Jan 30, 2019 08:15
[2019-01-30] MEDS: HEParin DRIP 25000 UNIT/500ML (FULL THERAPY) IV SCH ×2 (08:30→16:10)
[2019-01-30] MEDS: lisINopril 5 MG (PRINIVIL) TABLET PO SCH (08:49)
[2019-01-30] MEDS: PANTOPRAZOLE 40 MG (PROTONIX) VIAL IV SCH (08:49)
--- NOTE | 2019-01-30 09:38 | Diagnostic Imaging Report ---
INDICATION: Abdominal distention KUB obtained at 733 hours a.m., is compared to small bowel study of yesterday. Compared to the prior study, contrast appears to have passed mostly into the colon with some mild residual in the small bowel. The findings are therefore most likely secondary to profound ileus. IMPRESSION: Delayed study performed demonstrates most of the contrast passing into the colon with some residual in the small bowel. The findings are probably secondary to ileus. Dictated by: Dictated on workstation # [id number]
--- NOTE | 2019-01-30 10:03 | NUR ---
received report Elsa WIER , gave report Sherrell WEIR
--- NOTE | 2019-01-30 10:13 | Physical Therapy Daily Note ---
PT Daily Note-Current Subjective Pt reports even though she did not work with PT yesterday because she was feeling so bad, she did walk to the bathroom a couple of times. States she is feeling much better today and agreeable to PT session. Pain Numeric Pain Scale: 0-No Pain Appearance Upon arrival, pt supine in bed awake and alert, family present At end of session, pt requesting to go back to bed, pt supine in bed, call light , phone and bedside table within reach, family still present as well as nsg Mental Status Patient Orientation: Person, Place, Time, Eyes Open, Situation Attachments: IV Transfers Therapy Code Descriptions/Definitions Functional [place] Measure: 0=Not Assessed/NA 4=Minimal Assistance 1=Total Assistance 5=Supervision or Setup 2=Maximal Assistance 6=Modified [place] 3=Moderate Assistance 7=Complete [place] Therapy Quality Codes: 6 Independent with activity with or without an assistive device 5 Patient requires set up or clean up by helper. Patient completes activity by themselves 4 Supervision or touching assist (CGA). [place] provide cues , steadying assist 3 The helper provides less than half the effort to complete the activity 2 The helper provides more than half the effort to complete the activity 1 Dependent. The helper does all the effort to complete an activity 7 Patient refused to complete or attempt activity 9 The patient did not perform the activity before the current illness or injury 88 Not attempted due to Medical conditions or safety concerns Transfers (B, C, W/C) (FIM): 5 Scootin Rollin Supine to/from Sit: 5 Sit to/from Stand: 5 Pt demonstrating proper technique and safety with transitions requiring verb inst x1 episode Weight Bearing Right Lower Extremity: Right Weight Bearing/Tolerated Left Lower Extremity: Left Weight Bearing/Tolerated Gait Training Gait (FIM): 5 Distance (FIM): 3=150 ft Distance: 250' Gait Level of Assist: 5 Gait Persons Needed: 1 Gait Assistive Device: FWW slow pace, decreased step length, steady with use of FWW, fwd flexed head/neck, slight thoracic kyphotic posture, inst x1 to hold head up and pt able to follow instruction throughout rest of gait distance. Good body placement from FWW during gt this session Treatments Bed mobility, gait, transfers to improve functional mobility, activity tolerance , safety and strength Assessment Current Status: Good Progress PT Alf Goals Seam Stayer Goals PT Alf Goals Time Frame: Feb 01, 2019 Transfers (B,C,W/C) (FIM): 6 Gait (FIM): 5 Gait distance (FIM): 3=150 ft Distance: 300 Gait Level of Assist: 5 Gait Assistive Device: FWW PT Plan Treatment/Plan Treatment Plan: Continue Plan of Care Treatment Plan: Bed Mobility, Gait, Safety, Transfers Treatment Duration: Feb 01, 2019 Frequency: 6 times per week Estimated Hrs Per Day: .25 hour per day Patient and/or Family Agrees t: Yes Safety Risks/Education Patient Education: Gait Training, Transfer Techniques, Correct Positioning, Safety Issues Teaching Recipient: Patient Teaching Methods: Discussion Response to Teaching: Verbalize Understanding Time/GCodes Time In: 832 Time Out: 848 Total Billed Treatment Time: 16 Total Billed Treatment 1 visit, GT x 1 unit DAYRON LEON PTA Jan 30, 2019 10:13
[2019-01-30 12:00] VITALS: BP 168/81
[2019-01-30 14:48] LABS: BASOPHILS % (AUTO) 0 % (0-10); EOSINOPHILS # (AUTO) 0.1 10^3/uL (0.0-0.3); EOSINOPHILS % (AUTO) 2 % (0-10); HEMATOCRIT 35 % (35-52); HEMOGLOBIN 12.2 G/DL (11.5-16.0); LYMPHOCYTES # (AUTO) 1.2 X 10^3 (1.0-4.0); LYMPHOCYTES % (AUTO) 15 % (12-44); MEAN CORPUSCULAR HEMOGLOBIN 33 PG (25-34); MEAN CORPUSCULAR HGB CONC 35 G/DL (32-36); MEAN CORPUSCULAR VOLUME 96 FL (80-99); MEAN PLATELET VOLUME 9.9 FL (7.4-10.4); MONOCYTES # (AUTO) 1.1 X 10^3 (0.0-1.0); MONOCYTES % (AUTO) 14 % (0-12); NEUTROPHILS # (AUTO) 5.6 X 10^3 (1.8-7.8); NEUTROPHILS % (AUTO) 70 % (42-75); PLATELET COUNT 226 10^3/uL (130-400); RED CELL DISTRIBUTION WIDTH 13.3 % (10.0-14.5)
--- NOTE | 2019-01-30 15:20 | Progress Note (SOAP) ---
Subjective Date Seen by a Provider: Jan 30, 2019 Time Seen by a Provider: 14:00 Subjective/Events-last exam doing much better today. multiple loose BM's overnight and much less abd distention. no abd pain. diagnostic laparoscopy cancelled. Objective Exam Vital Signs Date Time Temp Pulse Resp B/P (MAP) Pulse Ox O2 Delivery O2 Flow Rate FiO2 01/30/19 13:01 76 01/30/19 12:00 97.2 76 20 168/81 (110) 98 Room Air 01/30/19 10:00 Room Air 01/30/19 08:00 97.8 69 20 156/86 (109) 95 Room Air 01/30/19 07:01 71 01/30/19 04:00 98.9 79 20 159/72 (101) 96 Room Air 01/30/19 01:00 78 01/30/19 00:00 97.7 114 18 161/79 (106) 94 Room Air 01/29/19 20:00 Room Air 01/29/19 20:00 99.1 76 16 161/79 (106) 96 Room Air 01/29/19 19:00 71 01/29/19 15:22 98.6 76 18 167/80 (109) 95 Room Air I & O 01/30/19 07:00 Intake Total 1850 ml Output Total 1300 ml Balance 550 ml Capillary Refill : Less Than 3 Seconds General Appearance: No Apparent Distress HEENT: PERRL/EOMI Neck: Full Range of Motion Respiratory: Chest Non Tender, Lungs Clear, Normal Breath Sounds Cardiovascular: Regular Rate, Rhythm Gastrointestinal: normal bowel sounds, non tender, soft Extremity: Normal Capillary Refill Neurologic/Psychiatric: Alert, Oriented x3 Skin: Normal Color Lymphatic: No Adenopathy Results Lab Laboratory Tests 01/29/19 22:02: Activated Partial Thromboplast Time 120*H 01/30/19 06:00: Activated Partial Thromboplast Time 126*H, White Blood Count 9.3, Red Blood Count 3.71L, Hemoglobin 12.3, Hematocrit 35, Mean Corpuscular Volume 94, Mean Corpuscular Hemoglobin 33, Mean Corpuscular Hemoglobin Concent 35, Red Cell Distribution Width 13.1, Platelet Count 244, Mean Platelet Volume 10.2, Sodium Level 129L, Potassium Level 3.9, Chloride Level 95L, Carbon Dioxide Level 25, Anion Gap 9, Blood Urea Nitrogen 20H, Creatinine 0.57L, Estimat Glomerular Filtration Rate > 60, BUN/Creatinine Ratio 35, Glucose Level 109H, Calcium Level 8.2L, Corrected Calcium 8.7, Total Bilirubin 0.3, Aspartate Amino Transf ( AST/SGOT) 12, Alanine Aminotransferase (ALT/SGPT) 6, Alkaline Phosphatase 28L, Total Protein 5.3L, Albumin 3.4 01/30/19 08:00: Stool Occult Blood Immunoassay POSITIVEH 01/30/19 14:39: Activated Partial Thromboplast Time 67H, White Blood Count 8.0, Red Blood Count 3.70L, Hemoglobin 12.2, Hematocrit 35, Mean Corpuscular Volume 96, Mean Corpuscular Hemoglobin 33, Mean Corpuscular Hemoglobin Concent 35, Red Cell Distribution Width 13.3, Platelet Count 226, Mean Platelet Volume 9.9, Neutrophils (%) (Auto) 70, Lymphocytes (%) (Auto) 15, Monocytes (%) (Auto) 14H, Eosinophils (%) (Auto) 2, Basophils (%) (Auto) 0, Neutrophils # (Auto) 5.6, Lymphocytes # (Auto) 1.2, Monocytes # (Auto) 1.1H, Eosinophils # (Auto) 0.1, Basophils # (Auto) 0.0 Microbiology 01/26/19 Urine Culture - Preliminary, Resulted YEAST Assessment/Plan Assessment/Plan Assess & Plan/Chief Complaint PSBO. significant improvement overnight with multiple loose BM's and abdominal decompression. surgery cancelled. will advance diet as tolerated. Clinical Quality Measures DVT/VTE Risk/Contraindication: Risk Factor Score Per Nursin RFS Level Per Nursing on Admit: 3=High Contraindications-Pharm: Other *list below* HIWOT LIM MD Jan 30, 2019 15:20
[2019-01-30] MEDS ORDERED: HEParin DRIP 25000 UNIT/500ML 500 ML IV ONE (16:05)
[2019-01-30] MEDS: HEParin 1000 UNIT/ML BOLUS (FULL THERAPY) IV PRN (16:11)
[2019-01-30 16:18] VITALS: BP 138/63
[2019-01-30] MEDS ORDERED: ACETAMINOPHEN 500 MG TAB (TYLENOL) PO PRN (19:00)
[2019-01-30] MEDS: NS IV 1000 ML 1,000 ML IV SCH (19:05)
[2019-01-30 19:53] VITALS: BP 142/64
[2019-01-30] MEDS: ALPRAZolam 0.25 MG (XANAX) TAB PO SCH (20:52)
[2019-01-30] MEDS: cefTRIAXone 1,000 MG/SWFI 10 ML IV PUSH IV SCH ×2 (20:53)
[2019-01-30] MEDS: MELATONIN 3 MG TABLET PO SCH (20:53)
[2019-01-30] MEDS ORDERED: NON-FORMULARY MEDICATION 1 EA EA (Melatonin 5 MG) PO SCH (22:00)
[2019-01-31] VITALS (7 sets, daily range): BP systolic 116–142; BP diastolic 60–88
[2019-01-31] MEDS: CIPROFLOXACIN IV 400MG/200ML 200 ML IV SCH ×2 (00:14→13:01)
[2019-01-31] MEDS: METOCLOPRAMIDE INJ 10 MG/2 ML (REGLAN) IVP SCH ×4 (00:14→18:20)
[2019-01-31 06:14] LABS: BASOPHILS % (AUTO) 1 % (0-10); EOSINOPHILS # (AUTO) 0.2 10^3/uL (0.0-0.3); EOSINOPHILS % (AUTO) 3 % (0-10); HEMATOCRIT 35 % (35-52); HEMOGLOBIN 11.8 G/DL (11.5-16.0); LYMPHOCYTES # (AUTO) 1.2 X 10^3 (1.0-4.0); LYMPHOCYTES % (AUTO) 18 % (12-44); MEAN CORPUSCULAR HEMOGLOBIN 33 PG (25-34); MEAN CORPUSCULAR HGB CONC 34 G/DL (32-36); MEAN CORPUSCULAR VOLUME 96 FL (80-99); MEAN PLATELET VOLUME 10.4 FL (7.4-10.4); MONOCYTES % (AUTO) 15 % (0-12); NEUTROPHILS # (AUTO) 4.3 X 10^3 (1.8-7.8); NEUTROPHILS % (AUTO) 63 % (42-75); PLATELET COUNT 224 10^3/uL (130-400); RED CELL DISTRIBUTION WIDTH 13.3 % (10.0-14.5); WHITE BLOOD COUNT 6.8 10^3/uL (4.3-11.0)
[2019-01-31 06:34] LABS: ALANINE AMINOTRANSFERASE 6 U/L (0-55); ALBUMIN 3.1 GM/DL (3.2-4.5); ALKALINE PHOSPHATASE 28 U/L (40-136); BILIRUBIN,TOTAL 0.3 MG/DL (0.1-1.0); BUN/CREATININE RATIO 20; CARBON DIOXIDE 23 MMOL/L (21-32); CHLORIDE 99 MMOL/L (98-107); CREATININE SERUM 0.59 MG/DL (0.60-1.30); GFR ESTIMATED > 60; GLUCOSE 95 MG/DL (70-105); POTASSIUM 3.8 MMOL/L (3.6-5.0); SODIUM 130 MMOL/L (135-145); TOTAL PROTEIN 4.9 GM/DL (6.4-8.2)
--- NOTE | 2019-01-31 07:54 | Progress Note (SOAP) ---
Subjective Time Seen by a Provider: 07:52 Subjective/Events-last exam Patient feeling better today. Patient have bowel movement today. Patient ready to eat an egg today Objective Exam Vital Signs Date Time Temp Pulse Resp B/P (MAP) Pulse Ox O2 Delivery O2 Flow Rate FiO2 01/31/19 07:00 74 01/31/19 04:10 98.9 69 20 142/88 (106) 96 01/31/19 01:00 74 01/31/19 00:10 97.9 74 18 132/60 (84) 96 Room Air 01/30/19 20:15 Room Air 01/30/19 19:53 98.0 73 18 142/64 (90) 93 Room Air 01/30/19 19:00 77 01/30/19 16:18 98.5 77 18 138/63 (88) 96 Room Air 01/30/19 13:01 76 01/30/19 12:00 97.2 76 20 168/81 (110) 98 Room Air 01/30/19 10:00 Room Air 01/30/19 08:00 97.8 69 20 156/86 (109) 95 Room Air I & O 01/31/19 07:00 Intake Total 2054 ml Balance 2054 ml Capillary Refill : Less Than 3 Seconds General Appearance: No Apparent Distress, Thin HEENT: Normal ENT Inspection Neck: Full Range of Motion Respiratory: No Accessory Muscle Use, No Respiratory Distress Results Lab Laboratory Tests 01/30/19 14:39 01/31/19 05:55 Laboratory Tests 01/30/19 08:00: Stool Occult Blood Immunoassay POSITIVEH 01/30/19 14:39: White Blood Count 8.0, Red Blood Count 3.70L, Hemoglobin 12.2, Hematocrit 35, Mean Corpuscular Volume 96, Mean Corpuscular Hemoglobin 33, Mean Corpuscular Hemoglobin Concent 35, Red Cell Distribution Width 13.3, Platelet Count 226, Mean Platelet Volume 9.9, Neutrophils (%) (Auto) 70, Lymphocytes (%) (Auto) 15, Monocytes (%) (Auto) 14H, Eosinophils (%) (Auto) 2, Basophils (%) (Auto) 0, Neutrophils # (Auto) 5.6, Lymphocytes # (Auto) 1.2, Monocytes # (Auto) 1.1H, Eosinophils # (Auto) 0.1, Basophils # (Auto) 0.0, Activated Partial Thromboplast Time 67H 01/30/19 22:20: Activated Partial Thromboplast Time 137*H 01/31/19 05:55: White Blood Count 6.8, Red Blood Count 3.62L, Hemoglobin 11.8, Hematocrit 35, Mean Corpuscular Volume 96, Mean Corpuscular Hemoglobin 33, Mean Corpuscular Hemoglobin Concent 34, Red Cell Distribution Width 13.3, Platelet Count 224, Mean Platelet Volume 10.4, Neutrophils (%) (Auto) 63, Lymphocytes (%) (Auto) 18 , Monocytes (%) (Auto) 15H, Eosinophils (%) (Auto) 3, Basophils (%) (Auto) 1, Neutrophils # (Auto) 4.3, Lymphocytes # (Auto) 1.2, Monocytes # (Auto) 1.0, Eosinophils # (Auto) 0.2, Basophils # (Auto) 0.0, Activated Partial Thromboplast Time 91H, Sodium Level 130L, Potassium Level 3.8, Chloride Level 99 , Carbon Dioxide Level 23, Anion Gap 8, Blood Urea Nitrogen 12, Creatinine 0.59L , Estimat Glomerular Filtration Rate > 60, BUN/Creatinine Ratio 20, Glucose Level 95, Calcium Level 8.0L, Corrected Calcium 8.7, Total Bilirubin 0.3, Aspartate Amino Transf (AST/SGOT) 12, Alanine Aminotransferase (ALT/SGPT) 6, Alkaline Phosphatase 28L, Total Protein 4.9L, Albumin 3.1L Microbiology 01/26/19 Urine Culture - Preliminary, Resulted YEAST Assessment/Plan Assessment/Plan Assess & Plan/Chief Complaint Small bowel obstruction. Hypertension. Scabies treated. . 01/28/19. Atrial fib with RVR. Small bowel obstruction. Consult cardiology. . 01/29/19. Patient in sinus rhythm. Small bowel obstruction. Hypertension. Scabies. Past small bowel studies today. . 01/30/19. Patient in sinus rhythm. Small bowel obstruction. Hypertension. Patient had 2 bowel movements.. . 01/31/19. Ileus. Hypertension. Patient having bowel movement this morning. Patient feeling better. Patient excited to have an egg today Clinical Quality Measures Admission Status Admission Dx Small bowel obstruction. Large hiatal hernia. DVT/VTE Risk/Contraindication: Risk Factor Score Per Nursin RFS Level Per Nursing on Admit: 3=High Contraindications-Pharm: Other *list below* GELLENDER,LORE A DO Jan 31, 2019 07:54
--- NOTE | 2019-01-31 08:04 | Cardiology Progress Note ---
Subjective Date Seen by Provider: Jan 31, 2019 Time Seen by Provider: 08:02 Subjective/Events-last exam patient is sitting in bed, had a bowel movement this morning, doing well, no new complaint Review of Systems General: No Chills, No Night Sweats, No Fatigue, No Malaise, No Appetite, No Other HEENT: No Head Aches, No Visual Changes, No Eye Pain, No Ear Pain, No Dysphasia , No Sinus Congestion, No Post Nasal Drip, No Sore Throat, No Other Pulmonary: No Dyspnea, No Cough, No Pleuritic Chest Pain, No Other Cardiovascular: No: Chest Pain, Palpitations, Orthopnea, Paroxysmal Noc. Dyspnea, Edema, Lt Headedness, Other Objective-Cardiology Exam Last Set of Vital Signs Vital Signs 01/31/19 01/31/19 01/31/19 00:10 04:10 07:00 Temp 98.9 Pulse 74 Resp 20 B/P (MAP) 142/88 (106) Pulse Ox 96 O2 Delivery Room Air Capillary Refill : Less Than 3 Seconds I&O Intake and Output 01/31/19 00:00 Intake Total 2204 ml Balance 2204 ml Intake Oral 1894 ml IV Total 310 ml # Voids 9 # Bowel Movements 8 General: Alert, Oriented X3, Cooperative HEENT: Atraumatic, PERRLA Neck: Supple, No JVD, No Thyromegaly Lungs: Clear to Auscultation, Normal Air Movement Heart: Normal S1, Normal S2, No Murmurs, Other (atrial fibrillation) Abdomen: Soft, No Hepatosplenomegaly, No Masses, Other (abdominal pain) Extremities: No Clubbing, No Cyanosis, No Edema, Normal Pulses, No Tenderness/ Swelling Skin: No Rashes, No Breakdown, No Significant Lesion Neuro: Normal Gait, Normal Speech, Strength at 5/5 X4 Ext, Normal Tone, Sensation Intact Psych/Mental Status: Mental Status NL, Mood NL Results Lab Laboratory Tests 01/30/19 14:39 01/31/19 05:55 A/P-Cardiology Admission Diagnosis AFib with RVR SBO HTN Anxiety GERD Assessment/Plan Chronic persistent atrial fibrillation, continue to monitor at this time, I am planning to restart Eliquis this afternoon if she tolerated food well Labile hypertension, poorly controlled, scheduled for surgery today, continue to monitor Status post small bowel obstruction, tolerating diet well, had multiple bowel movements and doing well. History of TIA, has been maintained on Eliquis in the past, currently receiving IV heparin drip Gastroesophageal reflux disease, continue to monitor Anxiety. Continue to monitor Preoperative cardiac evaluation, patient is considered at intermediate risk for perioperative cardiovascular complications, may hold Heparin for surgery Clinical Quality Measures DVT/VTE Risk/Contraindication: Risk Factor Score Per Nursin RFS Level Per Nursing on Admit: 3=High Contraindications-Pharm: Other *list below* BRENTON WHITLOCK MD Jan 31, 2019 08:04
[2019-01-31] MEDS: lisINopril 5 MG (PRINIVIL) TABLET PO SCH (09:55)
[2019-01-31] MEDS: ALPRAZolam 0.25 MG (XANAX) TAB PO SCH ×2 (09:55→21:37)
[2019-01-31] MEDS: NS IV 1000 ML 1,000 ML IV SCH ×2 (09:55→12:59)
[2019-01-31] MEDS: PANTOPRAZOLE 40 MG (PROTONIX) VIAL IV SCH (09:55)
--- NOTE | 2019-01-31 10:00 | Physical Therapy Daily Note ---
PT Daily Note-Current Subjective Patient reports she is unable to get out of bed herself, however, does perform this task without difficulty. Pain Numeric Pain Scale: 0-No Pain Location: No Pain Reported Mental Status Patient Orientation: Person, Time, Situation Attachments: IV Transfers Therapy Code Descriptions/Definitions Functional [place] Measure: 0=Not Assessed/NA 4=Minimal Assistance 1=Total Assistance 5=Supervision or Setup 2=Maximal Assistance 6=Modified [place] 3=Moderate Assistance 7=Complete [place] Therapy Quality Codes: 6 Independent with activity with or without an assistive device 5 Patient requires set up or clean up by helper. Patient completes activity by themselves 4 Supervision or touching assist (CGA). [place] provide cues , steadying assist 3 The helper provides less than half the effort to complete the activity 2 The helper provides more than half the effort to complete the activity 1 Dependent. The helper does all the effort to complete an activity 7 Patient refused to complete or attempt activity 9 The patient did not perform the activity before the current illness or injury 88 Not attempted due to Medical conditions or safety concerns Transfers (B, C, W/C) (FIM): 5 Scootin Supine to/from Sit: 5 Sit to/from Stand: 5 Bed to/from Chair: 5 incontinent BM resulting in assistance to cleanse and change Weight Bearing Right Lower Extremity: Right Weight Bearing/Tolerated Left Lower Extremity: Left Weight Bearing/Tolerated Gait Training Gait (FIM): 5 Distance (FIM): 3=150 ft Distance: 225' Gait Level of Assist: 5 Gait Persons Needed: 1 Gait Assistive Device: FWW slow, NBOS Assessment Patient tolerated treatment well and is up in recliner with needs met. Patient requires time to complete all functional tasks and requires encouragement to actively participate in self care and to remain up in recliner. PT Halfway Goals Halfway Goals PT Halfway Goals Time Frame: Feb 01, 2019 Transfers (B,C,W/C) (FIM): 6 Gait (FIM): 5 Gait distance (FIM): 3=150 ft Distance: 300 Gait Level of Assist: 5 Gait Assistive Device: FWW PT Plan Treatment/Plan Treatment Plan: Continue Plan of Care Treatment Plan: Bed Mobility, Gait, Safety, Transfers Treatment Duration: Feb 01, 2019 Frequency: 6 times per week Estimated Hrs Per Day: .25 hour per day Patient and/or Family Agrees t: Yes Time/GCodes Time In: 915 Time Out: 938 Total Billed Treatment Time: 23 Total Billed Treatment 1 visit FA x 2 23 min ANAHI JOHNSON PT Jan 31, 2019 10:00
--- NOTE | 2019-01-31 11:23 | Diagnostic Imaging Report ---
INDICATION: Bowel obstruction followup. TECHNIQUE: 2 frontal views of the abdomen. COMPARISON: 01/30/2019 FINDINGS: There are mildly prominent loops of small bowel in the right abdomen. Overall bowel distention is significantly improved compared to the previous examinations. No large collection of free air is seen. There is some contrast residual. Anastomotic sutures are seen in the right abdomen. A pessary is again noted. There are marked degenerative changes and mild left convex curvature of the lumbar spine. There is diffuse osteopenia. IMPRESSION: 1. A few mildly prominent loops of small bowel in the right abdomen. Overall small bowel distention is markedly improved compared to prior examinations. Dictated by: Dictated on workstation # [id number]
[2019-01-31] MEDS ORDERED: APIXABAN 5 MG (ELIQUIS) TABLET PO NR (13:00)
--- NOTE | 2019-01-31 15:03 | Occupational Therapy Eval ---
OT Evaluation-General/PLF Medical Diagnosis Admission Date Jan 23, 2019 at 19:04 Medical Diagnosis: bowel obstruction Onset Date: Jan 25, 2019 Therapy Diagnosis Therapy Diagnosis: Weakness Height/Weight Height (Feet): 5 Height (Inches): 5.00 Weight (Pounds): 129 Weight (Ounces): 8.0 Precautions Precautions/Isolations: Fall Prevention, Standard Precautions Safety Interventions: Reorient-PRN Weight Bear Status Weight Bearing Restriction: Full Weight Bearing Location Restriction: L LE, R LE Referral Physician: Karen Referral Reason: Activity Tolerance, Self Care, Evaluation/Treatment, Strengthening/ROM Medical History Pertinent Medical History: Arthritis Current History Pt admitted to ER due to Nausea & Vomiting on 01/24/2019 . She was found to have small bowl obstruction. Reviewed History: Yes Social History Home: Single Level Current Living Status: Children Entry Into Home: Ramp ADL-Prior Level of Function Therapy Code Descriptions/Definitions Functional [place] Measure: 0=Not Assessed/NA 4=Minimal Assistance 1=Total Assistance 5=Supervision or Setup 2=Maximal Assistance 6=Modified [place] 3=Moderate Assistance 7=Complete [place] Therapy Quality Codes: 6 Independent with activity with or without an assistive device 5 Patient requires set up or clean up by helper. Patient completes activity by themselves 4 Supervision or touching assist (CGA). Mikado provide cues , steadying assist 3 The helper provides less than half the effort to complete the activity 2 The helper provides more than half the effort to complete the activity 1 Dependent. The helper does all the effort to complete an activity 7 Patient refused to complete or attempt activity 9 The patient did not perform the activity before the current illness or injury 88 Not attempted due to Medical conditions or safety concerns Functional Abilities and Goals: Independent: Patient completed the activities by him/herself, with or without an assistive device, with no assistance from a helper. Needed Some Help: Patient needed partial assistance from another person to complete activities. Dependent: A helper completed the activities for the patient. Unknown: Not Applicable: ADL PLOF Comments Pt was Independent in all self care tasks , transfers & mobility inside the house without Walker. Out side the house Pt's family uses W/C to the Van Self Care: Independent Functional Cognition: Needed Some Help DME/Equipment: Bath Bench, Grab Bars, Shower Hose Fructose Loader Drive Self: No OT Current Status Subjective Pt in bed, alert, oriented, cooperative & agree for therapy. Pt states that, " I need help to get out of bed. " Pain Location: No Pain Reported Mental Status/Objective Patient Orientation: Person, Place, Time Attachments: Central Line, IV, Saline Lock, Telemetry Current Glasses/Contacts: Yes Hearing Aids: No Hand Dominance: Right Upper Extremity ROM WFL. Upper Extremity Coordination iNTACT Upper Extremity Sensation iNTACT Upper Extremity Strength MS in BUE -4/5 grossly graded. ADL-Treatment ADL-Current Pt. participated in OT assessment. Pt needs min A in supine to sit at the EOB, Min A sit to stand & to scoot forward to EOB.. Pt func ambulate 30 feet with Min-SBA with FWW using gait belt. Pt needs Min A in UB dressing, SBA in grooming . Pt at high risk of fall due to weakness & unsteady standing balance. MS in BUE -4/5 grossly graded & hand asbestos surveyor fair. Therapy Code Descriptions/Definitions Functional [place] Measure: 0=Not Assessed/NA 4=Minimal Assistance 1=Total Assistance 5=Supervision or Setup 2=Maximal Assistance 6=Modified [place] 3=Moderate Assistance 7=Complete [place] Therapy Quality Codes: 6 Independent with activity with or without an assistive device 5 Patient requires set up or clean up by helper. Patient completes activity by themselves 4 Supervision or touching assist (CGA). Mikado provide cues , steadying assist 3 The helper provides less than half the effort to complete the activity 2 The helper provides more than half the effort to complete the activity 1 Dependent. The helper does all the effort to complete an activity 7 Patient refused to complete or attempt activity 9 The patient did not perform the activity before the current illness or injury 88 Not attempted due to Medical conditions or safety concerns Eating (FIM): 6 Grooming (FIM): 4 Bathing (FIM): 0 Upper Body Dressing (FIM): 4 Lower Body Dressing (FIM): 0 Toileting (FIM): 0 Transfers (B, C, W/C) (FIM): 4 Toilet/Commode Transfer (FIM): 4 Tub Transfer (FIM): 0 Shower Transfer (FIM): 0 Education OT Patient Education: Correct positioning Teaching Recipient: Patient Teaching Methods: Demonstration Response to Teaching: Verbalize Understanding OT Short Term Goals Short Term Goals Time Frame: Mar 07, 2019 Additional Short Term Goals: 1-Demonstrate ADL Tasks, 2-Verbalize Understanding , 3-ImproveStrength/Syl 1=Demonstrate adherence to instructed precautions during ADL tasks. 2=Patient will verbalize/demonstrate understanding of assistive devices/ modifications for ADL. 3=Patient will improve strength/tolerance for activity to enable patient to perform ADL's. OT Twister Hand Goals Senior Living Goals Time Frame: Feb 28, 2019 Eating (FIM): 7 Grooming(FIM): 7 Bathing(FIM): 6 Bathing Location: L Arm, R Arm, L Upper Leg, R Upper Leg, L Lower Leg ( including foot), R Lower Leg (including foot), Chest, Abdomen, Buttocks, Perineal Area Upper Body Dressing(FIM): 6 Lower Body Dressing(FIM): 6 Toileting(FIM): 6 Transfers (B,C,W/C) (FIM): 6 Toilet/Commode Transfer(FIM): 6 Tub Transfer(FIM): 0 Shower Transfer(FIM): 6 Additional Goals: 1-Demonstrate ADL Tasks, 2-Verbalize Understanding, 3- ImproveStrength/Syl 1=Demonstrate adherence to instructed precautions during ADL tasks. 2=Patient will verbalize/demonstrate understanding of assistive devices/ modifications for ADL. 3=Patient will improve strength/tolerance for activity to enable patient to perform ADL's. OT Education/Plan Problem List/Assessment Assessment: Decreased Activ Tolerance, Decreased Safety Aware, Decreased UE Strength, Dependent Transfers, Impaired Bed Mobility, Impaired Funct Balance, Impaired Self-Care Skills Discharge Recommendations Plan/Recommendations: Continue POC Therapy D/C Recommendations: Home w/ Family Support Equpiment Recommendations-D/C: Extended Bath Bench, Extended Shower Sprayer, Casserole Preparer Patient/Family Goals To return home with [facility] Independently. Treatment Plan/Plan of Care Treatment,Training & Education: Yes Patient would benefit from OT for education, treatment and training to promote independence in ADL's, mobility, safety and/or upper extremity function for ADL' s. Plan of Care: ADL Retraining, Caregiver Training, Functional Mobility, UE Funct Exercise/Act, UE Neuromus Re-Ed/Coord Treatment Duration: Feb 28, 2019 Frequency: 5 times per week Estimated Hrs Per Day: .5 hour per day Agreement: Yes Rehab Potential: Good Time/GCodes Start Time: 13:30 Stop Time: 14:15 Total Time Billed (hr/min): 45 Billed Treatment Time 1, EVM 15 min, FA 17 min, Ex 13 min. Total 45 min. MEENA ROSE OT Jan 31, 2019 15:03
--- NOTE | 2019-01-31 17:01 | Progress Note (SOAP) ---
Subjective Date Seen by a Provider: Jan 31, 2019 Time Seen by a Provider: 16:45 Subjective/Events-last exam Patient seen with Dr. Jones. Patient reports doing well. Still having BMs and reports mild abdominal tenderness. No N/V. Tolerating diet and ambulating with PT. Objective Exam Vital Signs Date Time Temp Pulse Resp B/P (MAP) Pulse Ox O2 Delivery O2 Flow Rate FiO2 01/31/19 15:32 97.4 65 20 125/75 (92) 95 Room Air 01/31/19 13:00 69 01/31/19 12:00 98.5 71 18 116/68 (84) 96 Room Air 01/31/19 08:00 97.5 70 16 138/66 (90) 95 Room Air 01/31/19 07:15 Room Air 01/31/19 07:00 74 01/31/19 04:10 98.9 69 20 142/88 (106) 96 01/31/19 01:00 74 01/31/19 00:10 97.9 74 18 132/60 (84) 96 Room Air 01/30/19 20:15 Room Air 01/30/19 19:53 98.0 73 18 142/64 (90) 93 Room Air 01/30/19 19:00 77 I & O 01/31/19 07:00 Intake Total 2054 ml Balance 2054 ml Capillary Refill : Less Than 3 Seconds General Appearance: No Apparent Distress, WD/WN Neck: Full Range of Motion, Normal Inspection, Non Tender, Supple Respiratory: Lungs Clear, Normal Breath Sounds, No Accessory Muscle Use, No Respiratory Distress Cardiovascular: Regular Rate, Rhythm, No Edema Gastrointestinal: normal bowel sounds, non tender, soft Extremity: Normal Capillary Refill, Normal Inspection, Normal Range of Motion Neurologic/Psychiatric: Alert, Oriented x3 Skin: Normal Color, Warm/Dry Results Lab Laboratory Tests 01/30/19 22:20: Activated Partial Thromboplast Time 137*H 01/31/19 05:55: Activated Partial Thromboplast Time 91H, White Blood Count 6.8, Red Blood Count 3.62L, Hemoglobin 11.8, Hematocrit 35, Mean Corpuscular Volume 96, Mean Corpuscular Hemoglobin 33, Mean Corpuscular Hemoglobin Concent 34, Red Cell Distribution Width 13.3, Platelet Count 224, Mean Platelet Volume 10.4, Neutrophils (%) (Auto) 63, Lymphocytes (%) (Auto) 18, Monocytes (%) (Auto) 15H, Eosinophils (%) (Auto) 3, Basophils (%) (Auto) 1, Neutrophils # (Auto) 4.3, Lymphocytes # (Auto) 1.2, Monocytes # (Auto) 1.0, Eosinophils # (Auto) 0.2, Basophils # (Auto) 0.0, Sodium Level 130L, Potassium Level 3.8, Chloride Level 99, Carbon Dioxide Level 23, Anion Gap 8, Blood Urea Nitrogen 12, Creatinine 0.59L, Estimat Glomerular Filtration Rate > 60, BUN/Creatinine Ratio 20, Glucose Level 95, Calcium Level 8.0L, Corrected Calcium 8.7, Total Bilirubin 0.3 , Aspartate Amino Transf (AST/SGOT) 12, Alanine Aminotransferase (ALT/SGPT) 6, Alkaline Phosphatase 28L, Total Protein 4.9L, Albumin 3.1L 01/31/19 12:30: Activated Partial Thromboplast Time 55H Microbiology 01/26/19 Urine Culture - Preliminary, Resulted YEAST Assessment/Plan Assessment/Plan Assess & Plan/Chief Complaint A 88 year old female with PSBO. Continuing to have BMs. VSS. Tolerating diet. Clinical Quality Measures DVT/VTE Risk/Contraindication: Risk Factor Score Per Nursin RFS Level Per Nursing on Admit: 3=High Contraindications-Pharm: Other *list below* RIGOBERTO URRUTIA APRN Jan 31, 2019 17:01
[2019-01-31] MEDS ORDERED: APIXABAN 5 MG (ELIQUIS) TABLET PO SCH (21:00)
[2019-01-31] MEDS: MELATONIN 3 MG TABLET PO SCH (21:38)
[2019-02-01] MEDS: METOCLOPRAMIDE INJ 10 MG/2 ML (REGLAN) IVP SCH ×2 (00:18→05:08)
[2019-02-01] MEDS: NS IV 1000 ML 1,000 ML IV SCH ×2 (00:18→05:12)
[2019-02-01] MEDS: CIPROFLOXACIN IV 400MG/200ML 200 ML IV SCH (00:18)
[2019-02-01 04:00] VITALS: BP 162/70
[2019-02-01 06:16] LABS: BASOPHILS % (AUTO) 1 % (0-10); EOSINOPHILS # (AUTO) 0.2 10^3/uL (0.0-0.3); EOSINOPHILS % (AUTO) 4 % (0-10); HEMATOCRIT 33 % (35-52); HEMOGLOBIN 11.3 G/DL (11.5-16.0); LYMPHOCYTES # (AUTO) 0.9 X 10^3 (1.0-4.0); LYMPHOCYTES % (AUTO) 18 % (12-44); MEAN CORPUSCULAR HEMOGLOBIN 33 PG (25-34); MEAN CORPUSCULAR HGB CONC 35 G/DL (32-36); MEAN CORPUSCULAR VOLUME 97 FL (80-99); MONOCYTES # (AUTO) 0.7 X 10^3 (0.0-1.0); MONOCYTES % (AUTO) 14 % (0-12); NEUTROPHILS # (AUTO) 3.1 X 10^3 (1.8-7.8); NEUTROPHILS % (AUTO) 63 % (42-75); PLATELET COUNT 250 10^3/uL (130-400); RED CELL DISTRIBUTION WIDTH 13.9 % (10.0-14.5); WHITE BLOOD COUNT 4.9 10^3/uL (4.3-11.0)
[2019-02-01 06:40] LABS: ALANINE AMINOTRANSFERASE 8 U/L (0-55); ALBUMIN 3.2 GM/DL (3.2-4.5); ALKALINE PHOSPHATASE 31 U/L (40-136); BILIRUBIN,TOTAL 0.4 MG/DL (0.1-1.0); BUN/CREATININE RATIO 11; CALCIUM 8.3 MG/DL (8.5-10.1); CARBON DIOXIDE 25 MMOL/L (21-32); CHLORIDE 102 MMOL/L (98-107); CREATININE SERUM 0.63 MG/DL (0.60-1.30); GFR ESTIMATED > 60; GLUCOSE 92 MG/DL (70-105); POTASSIUM 3.9 MMOL/L (3.6-5.0); SODIUM 135 MMOL/L (135-145)
--- NOTE | 2019-02-01 08:20 | Progress Note (SOAP) ---
Subjective Time Seen by a Provider: 08:18 Subjective/Events-last exam Patient feeling better today. Patient feels weak. Patient feels she's not able to take care of herself at home. Patient lives alone Objective Exam Vital Signs Date Time Temp Pulse Resp B/P (MAP) Pulse Ox O2 Delivery O2 Flow Rate FiO2 02/01/19 07:00 68 02/01/19 04:00 97.7 63 18 162/70 (100) 97 Room Air 02/01/19 01:00 68 01/31/19 23:04 97.8 69 20 135/76 (95) 96 Room Air 01/31/19 20:00 Room Air 01/31/19 19:08 97.3 67 20 141/63 (89) 94 Room Air 01/31/19 19:00 73 01/31/19 15:32 97.4 65 20 125/75 (92) 95 Room Air 01/31/19 13:00 69 01/31/19 12:00 98.5 71 18 116/68 (84) 96 Room Air I & O 02/01/19 07:00 Intake Total 4350 ml Balance 4350 ml Capillary Refill : Less Than 3 Seconds General Appearance: No Apparent Distress, Thin HEENT: Normal ENT Inspection Neck: Full Range of Motion, Normal Inspection Respiratory: Lungs Clear, No Accessory Muscle Use, No Respiratory Distress Cardiovascular: Regular Rate, Rhythm, No Murmur Gastrointestinal: non tender, soft Results Lab Laboratory Tests 02/01/19 05:50 Laboratory Tests 01/31/19 12:30: Activated Partial Thromboplast Time 55H 02/01/19 05:50: White Blood Count 4.9, Red Blood Count 3.38L, Hemoglobin 11.3L, Hematocrit 33L, Mean Corpuscular Volume 97, Mean Corpuscular Hemoglobin 33, Mean Corpuscular Hemoglobin Concent 35, Red Cell Distribution Width 13.9, Platelet Count 250, Mean Platelet Volume 10.0, Neutrophils (%) (Auto) 63, Lymphocytes (%) (Auto) 18 , Monocytes (%) (Auto) 14H, Eosinophils (%) (Auto) 4, Basophils (%) (Auto) 1, Neutrophils # (Auto) 3.1, Lymphocytes # (Auto) 0.9L, Monocytes # (Auto) 0.7, Eosinophils # (Auto) 0.2, Basophils # (Auto) 0.0, Sodium Level 135, Potassium Level 3.9, Chloride Level 102, Carbon Dioxide Level 25, Anion Gap 8, Blood Urea Nitrogen 7, Creatinine 0.63, Estimat Glomerular Filtration Rate > 60, BUN/ Creatinine Ratio 11, Glucose Level 92, Calcium Level 8.3L, Corrected Calcium 8.9 , Total Bilirubin 0.4, Aspartate Amino Transf (AST/SGOT) 14, Alanine Aminotransferase (ALT/SGPT) 8, Alkaline Phosphatase 31L, Total Protein 5.0L, Albumin 3.2 Microbiology 01/26/19 Urine Culture - Preliminary, Resulted YEAST Assessment/Plan Assessment/Plan Assess & Plan/Chief Complaint Small bowel obstruction. Hypertension. Scabies treated. . 01/28/19. Atrial fib with RVR. Small bowel obstruction. Consult cardiology. . 01/29/19. Patient in sinus rhythm. Small bowel obstruction. Hypertension. Scabies. Past small bowel studies today. . 01/30/19. Patient in sinus rhythm. Small bowel obstruction. Hypertension. Patient had 2 bowel movements.. . 01/31/19. Ileus. Hypertension. Patient having bowel movement this morning. Patient feeling better. Patient excited to have an egg today area . 02/01/19. Partial small bowel obstruction. Ileus. Hypertension. Patient needing. Patient having bowel movement. Patient weak. Patient lives alone Clinical Quality Measures Admission Status Admission Dx Small bowel obstruction. Large hiatal hernia. DVT/VTE Risk/Contraindication: Risk Factor Score Per Nursin RFS Level Per Nursing on Admit: 3=High Contraindications-Pharm: Other *list below* LORE POWELL DO Feb 01, 2019 08:20
== END 2019-02-01 08:15 | disposition swing bed (61) | DRG 389 ==
LOC: EDUNIT# 16:27 → ER 16:29 → 4TH 19:04
PROVIDERS: ADMIT Family Medicine; ATTEND Family Medicine
PROC: 0D9670Z Drainage of Stomach with Drainage Device, Via Natural or Artificial Opening (ICD-10-PCS; principal; 2019-01-23)
DX: K56.51 Intestinal adhesions [bands], with partial obstruction (principal); I48.1 Persistent atrial fibrillation; K44.9 Diaphragmatic hernia without obstruction or gangrene; I10 Essential (primary) hypertension; B86 Scabies; M19.91 Primary osteoarthritis, unspecified site; R11.2 Nausea with vomiting, unspecified; F41.9 Anxiety disorder, unspecified; Z90.49 Acquired absence of other specified parts of digestive tract; Z86.73 Personal history of transient ischemic attack (TIA), and cerebral infarction without residual deficits
CPT/HCPCS: 36415; 74018; 74019; 74176; 74250; 80053; 81000; 82274; 83690; 83880; 84484; 85007; 85025; 85027; 85610; 85730; 87088; 93005; 96374; 96375

== ENCOUNTER 2019-02-01 08:14 | Inpatient (IN) | payer MEDICARE, MEDICAID ==
[~2019-02-01] VITALS: Ht 165.1 cm; Wt 58.7 kg
[2019-02-01 08:00] VITALS: BP 159/72
[~2019-02-01 08:14] MED LIST changes: +ALPR0.254 PO; +CALC625T66 PO; +CETI10TA20 PO; +DIPH25CA79 PO; +FERR-84 PO; +HYDR453.3 TOP; +MELA3TAB PO; +MELA5TAB14 PO; +NAPR220T66 PO; +OMEP20TA7 PO
[2019-02-01] MEDS ORDERED: ONDANSETRON 4 MG/2 ML (SDV) Z0FRAN IV PRN (08:30)
[2019-02-01] MEDS ORDERED: CHLORASEPTIC SPRAY 177 ML LIQUID MC PRN (08:30)
[2019-02-01] MEDS ORDERED: ACETAMINOPHEN 500 MG TAB (TYLENOL) PO PRN (08:30)
[2019-02-01] MEDS ORDERED: cloNIDine 0.1 MG (CATAPRES) TAB PO PRN (08:30)
--- NOTE | 2019-02-01 08:30 | NUR ---
MARY GALLEGO admitted to swing bed status to room 417-1, with an admitting diagnosis of SWB , on 02/01/19 from acute inpatient status. PT to evaluate patient for activity needs. MARY GALLEGO and/or family introduced to surroundings, call light, bed controls, phone, TV, temperature control, lights, meal times, smoking policy, visitor policy, side rail policy, bathrooms, and showers. Patient rights given to patient in the handbook.. MARY GALLEGO and/or family member verbalized understanding that [facility] is not responsible for the loss or damage to any personal effects or valuables that are kept in the patients possession during their hospitalization. The PATIENT'S care plans were discussed with MARY GALLEGO WE[facility] Discharge Plannning. MARY GALLEGO and/or family verbalizes understanding of the Interdisciplinary Patient Education. Patient and/or family were informed about the Rapid Response Team and its purpose. Call light with in reach and patient demonstrates understanding of how to use. MARY GALLEGO reports no further needs at this time.
--- OUTSIDE RECORDS SUMMARY | 2019-02-01 08:45 | XMS REPORT | Continuity of Care Document ---
Author Author [facility] Organization [facility] Address Unknown Phone Unavailable Allergies Active Description [...] 12/23/2014 Ot V76.12 12/23/2014 Ot V76.12 12/23/2014 GELLENDER DOLORE Ot V76.12 09/05/2016 Ot V76.12 OTH [...] ESSENTIAL (PRIMARY) HYPERTENSION 09/10/2016 MEDDER DO, LORE Peerz Ot L02.31 CUTANEOUS ABSCESS OF BUTTOCK 09/10/2016 [...] Ot W19.XXXA UNSPECIFIED FALL, INITIAL ENCOUNTER 02/12/2018 CVAAZOS DO, JOVANI Ot I48.92 UNSPECIFIED ATRIAL FLUTTER [...] FIFTH METATARSAL BONE, RIGHT 03/21/2018 MECCA FRANCIS REAL ESTATE CLERK Ot I08.1 RHEUMATIC DISORDERS OF BOTH MITRAL AND T 03/21/2018 MECCA FRANCIS REAL ESTATE CLERK Ot I48.0 PAROXYSMAL ATRIAL FIBRILLATION 03/21/2018 MECCA FRANCIS REAL ESTATE CLERK Ot Z79.01 JAIL (CURRENT) USE OF ANTICOAGULANT 03/28/2018 GELLENDER DO, LORE Perez Ot S92.351A DISP FX OF FIFTH METATARSAL BONE, RIGHT 04/11/2018 MECCA FRANCIS REAL ESTATE CLERK Ot I08.1 RHEUMATIC DISORDERS OF BOTH MITRAL AND T 04/11/2018 BAIMECCA LEWIS REAL ESTATE CLERK Ot I48.0 PAROXYSMAL ATRIAL FIBRILLATION 04/11/2018 MECCA FRANCIS REAL ESTATE CLERK Ot Z79.01 JAIL (CURRENT) USE OF ANTICOAGULANT 04/19/2018 GELLENDER DO, [...] M47.816 SPONDYLOSIS W/O MYELOPATHY OR RADICULOPA [facility]/02/[facility] Ot R19.7 DIARRHEA, UNSPECIFIED 08/03/2018 [facility] Perez Ot R35.0 FREQUENCY OF MICTURITION 08/10/2018 [facility] M47.816 SPONDYLOSIS W/O MYELOPATHY OR RADICULOPA 08/21/2018 [facility] LORE Perez Ot K63.1 PERFORATION OF INTESTINE (NONTRAUMATIC) 08/21/2018 [facility], LORE Perez Ot V76.12 OTH SCREEN MAMMO-MALIGN NEOPLASM OF ARISTEO 08/21/2018 GELLENDER , LORE Perez Ot V76.12 OTH SCREEN MAMMO-MALIGN NEOPLASM OF ARISTEO 08/21/2018 [facility], LORE Perez Ot N85.8 OTHER SPECIFIED NONINFLAMMATORY DISORDER 08/21/2018 [facility] Ot N95.0 POSTMENOPAUSAL BLEEDING 08/21/2018 [facility] Ot N39.0 URINARY TRACT INFECTION, SITE NOT SPECIF 08/21/2018 [facility] Ot R35.0 FREQUENCY OF MICTURITION 08/21/2018 MECCA FRANCISP Ot I08.1 RHEUMATIC DISORDERS OF BOTH MITRAL AND T 08/21/2018 MECCA FRANCIS REAL ESTATE CLERK Ot I48.0 PAROXYSMAL ATRIAL FIBRILLATION 08/21/2018 MECCA FRANCIS REAL ESTATE CLERK Ot Z79.01 JAIL (CURRENT) USE OF ANTICOAGULANT 08/21/2018 [facility] Ot S92.351A DISP FX OF FIFTH METATARSAL BONE, RIGHT 08/21/2018 [facility] S92.351D DISP FX OF 5TH METATARSAL BONE, R FT, 7T 08/21/2018 [facility] Ot K63.1 PERFORATION OF INTESTINE (NONTRAUMATIC) 08/21/2018 Ot R19.7 DIARRHEA, UNSPECIFIED 08/21/2018 Ot S92.351D DISP FX OF 5TH METATARSAL BONE, R FT, 7T 08/21/2018 [facility] R19.7 DIARRHEA, UNSPECIFIED 08/21/2018 [facility] DOLORE Ot M47.816 SPONDYLOSIS W/O MYELOPATHY OR RADICULOPA 09/07/2018 ANDRE MARTÍNEZLORE Ot V76.12 OTH SCREEN MAMMO-MALIGN NEOPLASM OF ARISTEO 09/07/2018 MEDDER , LORE Perez Ot V76.12 OTH SCREEN MAMMO-MALIGN NEOPLASM OF ARISTEO 09/07/2018 ANDRE MARTÍNEZ, LORE Perez Ot N85.8 OTHER SPECIFIED NONINFLAMMATORY DISORDER 09/07/2018 ANDRE MARTÍNEZLORE Ot N95.0 POSTMENOPAUSAL BLEEDING 09/07/2018 ANDRE MARTÍNEZ, LORE Perez Ot N39.0 URINARY TRACT INFECTION, SITE NOT SPECIF 09/07/2018 ANDRE MARTÍNEZLORE Ot R35.0 FREQUENCY OF MICTURITION 09/07/2018 MECCA FRANCIS REAL ESTATE CLERK Ot I08.1 RHEUMATIC DISORDERS OF BOTH MITRAL AND T 09/07/2018 MECCA FRANCIS REAL ESTATE CLERK Ot I48.0 PAROXYSMAL ATRIAL FIBRILLATION 09/07/2018 MECCA FRANCIS REAL ESTATE CLERK Ot Z79.01 JAIL (CURRENT) USE OF ANTICOAGULANT 09/07/2018 ANDRE MARTÍNEZLORE [...] M47.816 SPONDYLOSIS W/O MYELOPATHY OR RADICULOPA 10/01/2018 [facility] Ot M19.041 PRIMARY OSTEOARTHRITIS, RIGHT HAND 10/11/2018 ANDRE MARTÍNEZ, LORE Perez Ot V76.12 OTH SCREEN MAMMO-MALIGN NEOPLASM OF ARISTEO 10/11/2018 MEDDER , LORE Perez Ot V76.12 OTH SCREEN MAMMO-MALIGN NEOPLASM OF ARISTEO 10/11/2018 ANDRE MARTÍNEZ, LORE Perez Ot N85.8 OTHER SPECIFIED NONINFLAMMATORY DISORDER 10/11/2018 ANDRE MARTÍNEZLORE Ot N95.0 POSTMENOPAUSAL BLEEDING 10/11/2018 PAPALENDER LORE Ot N39.0 URINARY TRACT INFECTION, SITE NOT SPECIF 10/11/2018 ANDRE MARTÍNEZLORE Ot R35.0 FREQUENCY OF MICTURITION 10/11/2018 MECCA FRANCISP Ot I08.1 RHEUMATIC DISORDERS OF BOTH MITRAL AND T 10/11/2018 MECCA FRANCISP Ot I48.0 PAROXYSMAL ATRIAL FIBRILLATION 10/11/2018 MECCA FRANCISP Ot Z79.01 JAIL (CURRENT) USE OF ANTICOAGULANT 10/11/2018 PAPALENREY, LORE Perez Ot S92.351A DISP FX OF FIFTH METATARSAL BONE, RIGHT 10/11/2018 PAPALENDER LORE Ot S92.351D DISP FX OF 5TH METATARSAL BONE, R FT, 7T 10/11/2018 ANDRE MARTÍNEZLORE Ot K63.1 PERFORATION OF INTESTINE (NONTRAUMATIC) 10/11/2018 Ot R19.7 DIARRHEA, UNSPECIFIED 10/11/2018 Ot S92.351D DISP FX OF 5TH METATARSAL BONE, R FT, 7T 10/11/2018 ANDRE MARTÍNEZLORE Ot R19.7 DIARRHEA, UNSPECIFIED 10/11/2018 ANDRE MARTÍNEZLORE Ot M47.816 SPONDYLOSIS W/O MYELOPATHY OR RADICULOPA 10/11/2018 PAPALENDER LORE Ot M19.041 PRIMARY OSTEOARTHRITIS, RIGHT HAND 10/11/2018 MECCA FRANCIS Ot I08.1 RHEUMATIC DISORDERS OF BOTH MITRAL AND T 10/11/2018 MECCA FRANCISP Ot I48.0 PAROXYSMAL ATRIAL FIBRILLATION 10/11/2018 MECCA FRANCISP Ot Z79.01 JAIL (CURRENT) USE OF ANTICOAGULANT 01/10/2019 [facility] Ot R19.7 DIARRHEA, UNSPECIFIED 01/15/2019 GELLENDER LORE Ot R19.7 DIARRHEA, UNSPECIFIED 01/30/2019 GELLENDER LORE Ot B86 SCABIES 01/30/2019 GELLENDER LORE Ot I10 ESSENTIAL (PRIMARY) HYPERTENSION 01/30/2019 GELLENDER LORE Ot K44.9 DIAPHRAGMATIC HERNIA WITHOUT OBSTRUCTION 01/30/2019 GELLENDER LORE MARTÍNEZ Ot K56.690 OTHER PARTIAL INTESTINAL OBSTRUCTION 01/30/2019 LORE POWELL DO Ot M19.91 PRIMARY OSTEOARTHRITIS, UNSPECIFIED SITE 01/30/2019 LORE POWELL DO Ot Z90.49 ACQUIRED ABSENCE OF OTHER SPECIFIED PART Procedures Code Description Performed By Performed On [id number] EXTRACTION OF BUTTOCK SKIN , EXTERNAL LOLY 09/07/2016 [id number] DRAINAGE OF STOMACH WITH DRAINAGE DEVICE 01/23/2019 Results Test Result Range Complete blood count [...] - 09/05/16 14:10 Bacterial blood culture NG BANNER Gram stain microscopy - 09/05/16 16:00 GRAM STAIN RESULT MODERATE # GRAM POSITIVE COCCI NR Bacteria identification in wound by culture - 09/05/16 16:00 Bacteria identification in wound by culture [id number] NR FREE TEXT EXTERNAL (GROUP F POSITIVE) NRG QUANTITY OF GROWTH Abundant Growth BANNER Bacterial susceptibility panel - 09/05/16 16:00 Oxacillin [...] virus A and B antigen detection - 02/09/17 16:34 FLU RESULT NEGATIVE FOR INFLUENZA A AND B ANTIGENS BY IA BANNER Bacterial urine culture - 12/21/17 16:45 Bacterial urine culture [id number] NRG COLONY COUNT >100,000/ML NR FTX;REPORTABLE SENSITIVITY REPORTED AT 1032, 218 BANNER URINE CULTURE RESULTS PLUS BANNER Bacterial susceptibility panel - 12/21/17 16:45 Gentamicin [...] susceptibility test by minimum inhibitory concentration - BANNER Bacterial urine culture - 01/11/18 17:00 Bacterial urine culture [id number] NRG COLONY COUNT <10,000 NRG FTX;REPORTABLE SENSITIVITY REPORTED 01/14/18 9:45 NRG FREE TEXT ENTRY 2 PLUS, NRG FREE TEXT ENTRY 3 MIXED GRAM POSITIVES 10-100,000/ML BANNER Bacterial susceptibility panel - 01/11/18 17:00 Gentamicin [...] culture - 02/11/18 13:32 Bacterial urine culture [id number] NRG COLONY COUNT <10,000 NRG FREE TEXT [...] RESULTS NEGATIVE FOR ANTIGEN AND TOXIN A/B BANNER C DIFFICILE AG + TOXIN A/B. - 05/19/18 20:14 RESULTS NEGATIVE FOR ANTIGEN AND TOXIN A/B BANNER Complete blood count (CBC) with automated white blood cell (WBC) differential - 01/23/19 16:42 Blood leukocytes automated count (number/volume) 15.2 10*3/uL 4.3-11.0 Blood erythrocytes automated count (number/volume) 4.70 10*6/uL 4.35-5.85 Venous blood hemoglobin measurement (mass/volume) 15.6 g/dL 11.5-16.0 Blood hematocrit (volume fraction) 44 % 35-52 Automated erythrocyte mean corpuscular volume 95 [foz_us] 80-99 Automated erythrocyte mean corpuscular hemoglobin (mass per erythrocyte) 33 pg 25-34 Automated erythrocyte mean corpuscular hemoglobin concentration measurement ( mass/volume) 35 g/dL 32-36 Automated erythrocyte distribution width ratio 13.5 % 10.0-14.5 Automated blood platelet count (count/volume) 307 10*3/uL 130-400 Automated blood platelet mean volume measurement 9.9 [foz_us] 7.4-10.4 Automated blood neutrophils/100 leukocytes 86 % 42-75 Automated blood lymphocytes/100 leukocytes 9 % 12-44 Blood monocytes/100 leukocytes 5 % 0-12 Automated blood eosinophils/100 leukocytes 0 % 0-10 Automated blood basophils/100 leukocytes 0 % 0-10 Blood neutrophils automated count (number/volume) 13.0 10*3 1.8-7.8 Blood lymphocytes automated count (number/volume) 1.4 10*3 1.0-4.0 Blood monocytes automated count (number/volume) 0.8 10*3 0.0-1.0 Automated eosinophil count 0.0 10*3/uL 0.0-0.3 Automated blood basophil count (count/volume) 0.0 10*3/uL 0.0-0.1 Comprehensive metabolic panel - 01/23/19 16:42 Serum or plasma sodium measurement (moles/volume) 129 mmol/L 135-145 Serum or plasma potassium measurement (moles/volume) 4.9 mmol/L 3.6-5.0 Serum or plasma chloride measurement (moles/volume) 96 mmol/L 98-107 Carbon dioxide 21 mmol/L 21-32 Serum or plasma anion gap determination (moles/volume) 12 mmol/L 5-14 Serum or plasma urea nitrogen measurement (mass/volume) 16 mg/dL 7-18 Serum or plasma creatinine measurement (mass/volume) 0.92 mg/dL 0.60-1.30 Serum or plasma urea nitrogen/creatinine mass ratio 17 NRG Serum or plasma creatinine measurement with calculation of estimated glomerular filtration rate 58 NRG Serum or plasma glucose measurement (mass/volume) 187 mg/dL 70-105 Serum or plasma calcium measurement (mass/volume) 10.0 mg/dL 8.5-10.1 Serum or plasma total bilirubin measurement (mass/volume) 0.9 mg/dL 0.1-1.0 Serum or plasma alkaline phosphatase measurement (enzymatic activity/volume) 49 U/L 40-136 Serum or plasma aspartate aminotransferase measurement (enzymatic activity/ volume) 23 U/L 5-34 Serum or plasma alanine aminotransferase measurement (enzymatic activity/volume ) 11 U/L 0-55 Serum or plasma protein measurement (mass/volume) 7.7 g/dL 6.4-8.2 Serum or plasma albumin measurement (mass/volume) 4.8 g/dL 3.2-4.5 Lipase - 01/23/19 16:42 Lipase 5 U/L 8-78 Serum or plasma troponin i.cardiac measurement (mass/volume) - 01/23/19 16:42 Serum or plasma troponin i.cardiac measurement (mass/volume) < ng/ mL <0.028 Blood manual differential performed detection - 01/23/19 16:42 Blood monocytes/100 leukocytes 1 % NRG Manual blood segmented neutrophils/100 leukocytes 80 % NRG Blood band neutrophils/100 leukocytes 4 % NRG Manual blood lymphocytes/100 leukocytes 15 % NRG Manual eosinophils/100 leukocytes in nose 0 % NRG Manual blood basophils/100 leukocytes 0 % NRG Blood erythrocyte morphology finding identification NORMAL NR Complete blood count (CBC) with automated white blood cell (WBC) differential - 01/24/19 05:25 Blood leukocytes automated count (number/volume) 5.5 10*3/uL 4.3-11.0 Blood erythrocytes automated count (number/volume) 4.64 10*6/uL 4.35-5.85 Venous blood hemoglobin measurement (mass/volume) 15.1 g/dL 11.5-16.0 Blood hematocrit (volume fraction) 44 % 35-52 Automated erythrocyte mean corpuscular volume 95 [foz_us] 80-99 Automated erythrocyte mean corpuscular hemoglobin (mass per erythrocyte) 33 pg 25-34 Automated erythrocyte mean corpuscular hemoglobin concentration measurement ( mass/volume) 34 g/dL 32-36 Automated erythrocyte distribution width ratio 13.2 % 10.0-14.5 Automated blood platelet count (count/volume) 235 10*3/uL 130-400 Automated blood platelet mean volume measurement 9.8 [foz_us] 7.4-10.4 Automated blood neutrophils/100 leukocytes 73 % 42-75 Automated blood lymphocytes/100 leukocytes 13 % 12-44 Blood monocytes/100 leukocytes 15 % 0-12 Automated blood eosinophils/100 leukocytes 0 % 0-10 Automated blood basophils/100 leukocytes 0 % 0-10 Blood neutrophils automated count (number/volume) 4.0 10*3 1.8-7.8 Blood lymphocytes automated count (number/volume) 0.7 10*3 1.0-4.0 Blood monocytes automated count (number/volume) 0.8 10*3 0.0-1.0 Automated eosinophil count 0.0 10*3/uL 0.0-0.3 Automated blood basophil count (count/volume) 0.0 10*3/uL 0.0-0.1 Comprehensive metabolic panel - 01/24/19 05:25 Serum or plasma sodium measurement (moles/volume) 135 mmol/L 135-145 Serum or plasma potassium measurement (moles/volume) 4.6 mmol/L 3.6-5.0 Serum or plasma chloride measurement (moles/volume) 98 mmol/L 98-107 Carbon dioxide 24 mmol/L 21-32 Serum or plasma anion gap determination (moles/volume) 13 mmol/L 5-14 Serum or plasma urea nitrogen measurement (mass/volume) 22 mg/dL 7-18 Serum or plasma creatinine measurement (mass/volume) 0.78 mg/dL 0.60-1.30 Serum or plasma urea nitrogen/creatinine mass ratio 28 NRG Serum or plasma creatinine measurement with calculation of estimated glomerular filtration rate > NRG Serum or plasma glucose measurement (mass/volume) 145 mg/dL 70-105 Serum or plasma calcium measurement (mass/volume) 9.2 mg/dL 8.5-10.1 Serum or plasma total bilirubin measurement (mass/volume) 0.9 mg/dL 0.1-1.0 Serum or plasma alkaline phosphatase measurement (enzymatic activity/volume) 41 U/L 40-136 Serum or plasma aspartate aminotransferase measurement (enzymatic activity/ volume) 17 U/L 5-34 Serum or plasma alanine aminotransferase measurement (enzymatic activity/volume ) 9 U/L 0-55 Serum or plasma protein measurement (mass/volume) 6.9 g/dL 6.4-8.2 Serum or plasma albumin measurement (mass/volume) 4.4 g/dL 3.2-4.5 CALCIUM CORRECTED 8.9 mg/dL 8.5-10.1 PT panel in platelet poor plasma by coagulation assay - 01/24/19 05:25 Prothrombin time (PT) in platelet poor plasma by coagulation assay 12.9 s 12.2-14.7 INR in platelet poor plasma or blood by coagulation assay 1.0 0.8-1.4 Activated partial thromboplastin time (aPTT) in platelet poor plasma bycoagulation assay - 01/24/19 05:25 Activated partial thromboplastin time (aPTT) in platelet poor plasma bycoagulation assay 29 s 24-35 Bacterial urine culture - 01/24/19 13:05 Bacterial urine culture NG NR Automated blood complete blood count (hemogram) panel - 01/25/19 05:35 Blood leukocytes automated count (number/volume) 4.9 10*3/uL 4.3-11.0 Blood erythrocytes automated count (number/volume) 3.98 10*6/uL 4.35-5.85 Venous blood hemoglobin measurement (mass/volume) 13.1 g/dL 11.5-16.0 Blood hematocrit (volume fraction) 39 % 35-52 Automated erythrocyte mean corpuscular volume 97 [foz_us] 80-99 Automated erythrocyte mean corpuscular hemoglobin (mass per erythrocyte) 33 pg 25-34 Automated erythrocyte mean corpuscular hemoglobin concentration measurement ( mass/volume) 34 g/dL 32-36 Automated erythrocyte distribution width ratio 13.7 % 10.0-14.5 Automated blood platelet count (count/volume) 231 10*3/uL 130-400 Automated blood platelet mean volume measurement 9.6 [foz_us] 7.4-10.4 Comprehensive metabolic panel - 01/25/19 05:35 Serum or plasma sodium measurement (moles/volume) 136 mmol/L 135-145 Serum or plasma potassium measurement (moles/volume) 3.9 mmol/L 3.6-5.0 Serum or plasma chloride measurement (moles/volume) 103 mmol/L 98-107 Carbon dioxide 23 mmol/L 21-32 Serum or plasma anion gap determination (moles/volume) 10 mmol/L 5-14 Serum or plasma urea nitrogen measurement (mass/volume) 20 mg/dL 7-18 Serum or plasma creatinine measurement (mass/volume) 0.67 mg/dL 0.60-1.30 Serum or plasma urea nitrogen/creatinine mass ratio 30 NRG Serum or plasma creatinine measurement with calculation of estimated glomerular filtration rate > NRG Serum or plasma glucose measurement (mass/volume) 117 mg/dL 70-105 Serum or plasma calcium measurement (mass/volume) 8.5 mg/dL 8.5-10.1 Serum or plasma total bilirubin measurement (mass/volume) 0.7 mg/dL 0.1-1.0 Serum or plasma alkaline phosphatase measurement (enzymatic activity/volume) 35 U/L 40-136 Serum or plasma aspartate aminotransferase measurement (enzymatic activity/ volume) 16 U/L 5-34 Serum or plasma alanine aminotransferase measurement (enzymatic activity/volume ) 9 U/L 0-55 Serum or plasma protein measurement (mass/volume) 6.2 g/dL 6.4-8.2 Serum or plasma albumin measurement (mass/volume) 3.9 g/dL 3.2-4.5 CALCIUM CORRECTED 8.6 mg/dL 8.5-10.1 Complete urinalysis with reflex to culture - 01/26/19 04:35 Urine color determination FELICIANO NRG Urine clarity determination SLIGHTLY CLOUDY NRG Urine pH measurement by test strip 6 5-9 Specific gravity of urine by test strip 1.020 1.016- 1.022 Urine protein assay by test strip, semi-quantitative 2+ NEGATIVE Urine glucose detection by automated test strip NEGATIVE NEGATIVE Erythrocytes detection in urine sediment by light microscopy 1+ NEGATIVE Urine ketones detection by automated test strip 4+ NEGATIVE Urine nitrite detection by test strip POSITIVE NEGATIVE Urine total bilirubin detection by test strip NEGATIVE NEGATIVE Urine urobilinogen measurement by automated test strip (mass/volume) NORMAL NORMAL Urine leukocyte esterase detection by dipstick 2+ NEGATIVE Automated urine sediment erythrocyte count by microscopy (number/high power field) [HPF] NRG Automated urine sediment leukocyte count by microscopy (number/high power field ) [HPF] NRG Bacteria detection in urine sediment by light microscopy FEW NRG Squamous epithelial cells detection in urine sediment by light microscopy 10-25 NRG Crystals detection in urine sediment by light microscopy NONE NRG Casts detection in urine sediment by light microscopy NONE NRG Mucus detection in urine sediment by light microscopy SMALL NRG Complete urinalysis with reflex to culture YES NRG Bacterial urine culture - 01/26/19 04:35 Bacterial urine culture YEAST NRG COLONY COUNT 40,000 CFU/ML NRG Automated blood complete blood count (hemogram) panel - 01/26/19 06:09 Blood leukocytes automated count (number/volume) 5.9 10*3/uL 4.3-11.0 Blood erythrocytes automated count (number/volume) 3.87 10*6/uL 4.35-5.85 Venous blood hemoglobin measurement (mass/volume) 12.7 g/dL 11.5-16.0 Blood hematocrit (volume fraction) 38 % 35-52 Automated erythrocyte mean corpuscular volume 97 [foz_us] 80-99 Automated erythrocyte mean corpuscular hemoglobin (mass per erythrocyte) 33 pg 25-34 Automated erythrocyte mean corpuscular hemoglobin concentration measurement ( mass/volume) 34 g/dL 32-36 Automated erythrocyte distribution width ratio 13.5 % 10.0-14.5 Automated blood platelet count (count/volume) 217 10*3/uL 130-400 Automated blood platelet mean volume measurement 10.1 [foz_us] 7.4-10.4 Comprehensive metabolic panel - 01/26/19 06:09 Serum or plasma sodium measurement (moles/volume) 134 mmol/L 135-145 Serum or plasma potassium measurement (moles/volume) 3.3 mmol/L 3.6-5.0 Serum or plasma chloride measurement (moles/volume) 101 mmol/L 98-107 Carbon dioxide 21 mmol/L 21-32 Serum or plasma anion gap determination (moles/volume) 12 mmol/L 5-14 Serum or plasma urea nitrogen measurement (mass/volume) 18 mg/dL 7-18 Serum or plasma creatinine measurement (mass/volume) 0.64 mg/dL 0.60-1.30 Serum or plasma urea nitrogen/creatinine mass ratio 28 NRG Serum or plasma creatinine measurement with calculation of estimated glomerular filtration rate > NRG Serum or plasma glucose measurement (mass/volume) 101 mg/dL 70-105 Serum or plasma calcium measurement (mass/volume) 8.5 mg/dL 8.5-10.1 Serum or plasma total bilirubin measurement (mass/volume) 0.6 mg/dL 0.1-1.0 Serum or plasma alkaline phosphatase measurement (enzymatic activity/volume) 34 U/L 40-136 Serum or plasma aspartate aminotransferase measurement (enzymatic activity/ volume) 13 U/L 5-34 Serum or plasma alanine aminotransferase measurement (enzymatic activity/volume ) 8 U/L 0-55 Serum or plasma protein measurement (mass/volume) 5.8 g/dL 6.4-8.2 Serum or plasma albumin measurement (mass/volume) 3.7 g/dL 3.2-4.5 CALCIUM CORRECTED 8.7 mg/dL 8.5-10.1 Complete blood count (CBC) with automated white blood cell (WBC) differential - 01/27/19 06:23 Blood leukocytes automated count (number/volume) 8.5 10*3/uL 4.3-11.0 Blood erythrocytes automated count (number/volume) 3.86 10*6/uL 4.35-5.85 Venous blood hemoglobin measurement (mass/volume) 12.7 g/dL 11.5-16.0 Blood hematocrit (volume fraction) 37 % 35-52 Automated erythrocyte mean corpuscular volume 96 [foz_us] 80-99 Automated erythrocyte mean corpuscular hemoglobin (mass per erythrocyte) 33 pg 25-34 Automated erythrocyte mean corpuscular hemoglobin concentration measurement ( mass/volume) 34 g/dL 32-36 Automated erythrocyte distribution width ratio 12.8 % 10.0-14.5 Automated blood platelet count (count/volume) 219 10*3/uL 130-400 Automated blood platelet mean volume measurement 10.4 [foz_us] 7.4-10.4 Automated blood neutrophils/100 leukocytes 67 % 42-75 Automated blood lymphocytes/100 leukocytes 17 % 12-44 Blood monocytes/100 leukocytes 15 % 0-12 Automated blood eosinophils/100 leukocytes 2 % 0-10 Automated blood basophils/100 leukocytes 0 % 0-10 Blood neutrophils automated count (number/volume) 5.7 10*3 1.8-7.8 Blood lymphocytes automated count (number/volume) 1.4 10*3 1.0-4.0 Blood monocytes automated count (number/volume) 1.3 10*3 0.0-1.0 Automated eosinophil count 0.1 10*3/uL 0.0-0.3 Automated blood basophil count (count/volume) 0.0 10*3/uL 0.0-0.1 Comprehensive metabolic panel - 01/27/19 06:23 Serum or plasma sodium measurement (moles/volume) 131 mmol/L 135-145 Serum or plasma potassium measurement (moles/volume) 3.3 mmol/L 3.6-5.0 Serum or plasma chloride measurement (moles/volume) 98 mmol/L 98-107 Carbon dioxide 22 mmol/L 21-32 Serum or plasma anion gap determination (moles/volume) 11 mmol/L 5-14 Serum or plasma urea nitrogen measurement (mass/volume) 19 mg/dL 7-18 Serum or plasma creatinine measurement (mass/volume) 0.57 mg/dL 0.60-1.30 Serum or plasma urea nitrogen/creatinine mass ratio 33 NRG Serum or plasma creatinine measurement with calculation of estimated glomerular filtration rate > NRG Serum or plasma glucose measurement (mass/volume) 113 mg/dL 70-105 Serum or plasma calcium measurement (mass/volume) 8.5 mg/dL 8.5-10.1 Serum or plasma total bilirubin measurement (mass/volume) 0.6 mg/dL 0.1-1.0 Serum or plasma alkaline phosphatase measurement (enzymatic activity/volume) 31 U/L 40-136 Serum or plasma aspartate aminotransferase measurement (enzymatic activity/ volume) 16 U/L 5-34 Serum or plasma alanine aminotransferase measurement (enzymatic activity/volume ) 8 U/L 0-55 Serum or plasma protein measurement (mass/volume) 5.9 g/dL 6.4-8.2 Serum or plasma albumin measurement (mass/volume) 3.6 g/dL 3.2-4.5 CALCIUM CORRECTED 8.8 mg/dL 8.5-10.1 Complete blood count (CBC) with automated white blood cell (WBC) differential - 01/28/19 08:10 Blood leukocytes automated count (number/volume) 8.1 10*3/uL 4.3-11.0 Blood erythrocytes automated count (number/volume) 4.15 10*6/uL 4.35-5.85 Venous blood hemoglobin measurement (mass/volume) 13.8 g/dL 11.5-16.0 Blood hematocrit (volume fraction) 39 % 35-52 Automated erythrocyte mean corpuscular volume 94 [foz_us] 80-99 Automated erythrocyte mean corpuscular hemoglobin (mass per erythrocyte) 33 pg 25-34 Automated erythrocyte mean corpuscular hemoglobin concentration measurement ( mass/volume) 35 g/dL 32-36 Automated erythrocyte distribution width ratio 13.0 % 10.0-14.5 Automated blood platelet count (count/volume) 255 10*3/uL 130-400 Automated blood platelet mean volume measurement 9.9 [foz_us] 7.4-10.4 Automated blood neutrophils/100 leukocytes 67 % 42-75 Automated blood lymphocytes/100 leukocytes 18 % 12-44 Blood monocytes/100 leukocytes 14 % 0-12 Automated blood eosinophils/100 leukocytes 1 % 0-10 Automated blood basophils/100 leukocytes 0 % 0-10 Blood neutrophils automated count (number/volume) 5.4 10*3 1.8-7.8 Blood lymphocytes automated count (number/volume) 1.5 10*3 1.0-4.0 Blood monocytes automated count (number/volume) 1.1 10*3 0.0-1.0 Automated eosinophil count 0.1 10*3/uL 0.0-0.3 Automated blood basophil count (count/volume) 0.0 10*3/uL 0.0-0.1 Comprehensive metabolic panel - 01/28/19 08:10 Serum or plasma sodium measurement (moles/volume) 126 mmol/L 135-145 Serum or plasma potassium measurement (moles/volume) 3.0 mmol/L 3.6-5.0 Serum or plasma chloride measurement (moles/volume) 94 mmol/L 98-107 Carbon dioxide 21 mmol/L 21-32 Serum or plasma anion gap determination (moles/volume) 11 mmol/L 5-14 Serum or plasma urea nitrogen measurement (mass/volume) 17 mg/dL 7-18 Serum or plasma creatinine measurement (mass/volume) 0.57 mg/dL 0.60-1.30 Serum or plasma urea nitrogen/creatinine mass ratio 30 NRG Serum or plasma creatinine measurement with calculation of estimated glomerular filtration rate > NRG Serum or plasma glucose measurement (mass/volume) 147 mg/dL 70-105 Serum or plasma calcium measurement (mass/volume) 8.4 mg/dL 8.5-10.1 Serum or plasma total bilirubin measurement (mass/volume) 0.5 mg/dL 0.1-1.0 Serum or plasma alkaline phosphatase measurement (enzymatic activity/volume) 32 U/L 40-136 Serum or plasma aspartate aminotransferase measurement (enzymatic activity/ volume) 13 U/L 5-34 Serum or plasma alanine aminotransferase measurement (enzymatic activity/volume ) 7 U/L 0-55 Serum or plasma protein measurement (mass/volume) 5.8 g/dL 6.4-8.2 Serum or plasma albumin measurement (mass/volume) 3.7 g/dL 3.2-4.5 CALCIUM CORRECTED 8.6 mg/dL 8.5-10.1 Serum or plasma troponin i.cardiac measurement (mass/volume) - 01/28/19 08:10 Serum or plasma troponin i.cardiac measurement (mass/volume) < ng/ mL <0.028 Serum or plasma lithium measurement (moles/volume) - 01/28/19 08:10 BNP level 255.5 pg/mL <100.0 Activated partial thromboplastin time (aPTT) in platelet poor plasma bycoagulation assay - 01/28/19 10:20 Activated partial thromboplastin time (aPTT) in platelet poor plasma bycoagulation assay 28 s 24-35 Activated partial thromboplastin time (aPTT) in platelet poor plasma bycoagulation assay - 01/28/19 15:03 Activated partial thromboplastin time (aPTT) in platelet poor plasma bycoagulation assay 89 s 24-35 Activated partial thromboplastin time (aPTT) in platelet poor plasma bycoagulation assay - 01/28/19 22:04 Activated partial thromboplastin time (aPTT) in platelet poor plasma bycoagulation assay 108 s 24-35 Complete blood count (CBC) with automated white blood cell (WBC) differential - 01/29/19 06:16 Blood leukocytes automated count (number/volume) 9.5 10*3/uL 4.3-11.0 Blood erythrocytes automated count (number/volume) 3.96 10*6/uL 4.35-5.85 Venous blood hemoglobin measurement (mass/volume) 13.1 g/dL 11.5-16.0 Blood hematocrit (volume fraction) 37 % 35-52 Automated erythrocyte mean corpuscular volume 94 [foz_us] 80-99 Automated erythrocyte mean corpuscular hemoglobin (mass per erythrocyte) 33 pg 25-34 Automated erythrocyte mean corpuscular hemoglobin concentration measurement ( mass/volume) 35 g/dL 32-36 Automated erythrocyte distribution width ratio 12.5 % 10.0-14.5 Automated blood platelet count (count/volume) 233 10*3/uL 130-400 Automated blood platelet mean volume measurement 10.2 [foz_us] 7.4-10.4 Automated blood neutrophils/100 leukocytes 72 % 42-75 Automated blood lymphocytes/100 leukocytes 14 % 12-44 Blood monocytes/100 leukocytes 12 % 0-12 Automated blood eosinophils/100 leukocytes 1 % 0-10 Automated blood basophils/100 leukocytes 0 % 0-10 Blood neutrophils automated count (number/volume) 6.8 10*3 1.8-7.8 Blood lymphocytes automated count (number/volume) 1.4 10*3 1.0-4.0 Blood monocytes automated count (number/volume) 1.2 10*3 0.0-1.0 Automated eosinophil count 0.1 10*3/uL 0.0-0.3 Automated blood basophil count (count/volume) 0.0 10*3/uL 0.0-0.1 Comprehensive metabolic panel - 01/29/19 06:16 Serum or plasma sodium measurement (moles/volume) 125 mmol/L 135-145 Serum or plasma potassium measurement (moles/volume) 3.8 mmol/L 3.6-5.0 Serum or plasma chloride measurement (moles/volume) 96 mmol/L 98-107 Carbon dioxide 23 mmol/L 21-32 Serum or plasma anion gap determination (moles/volume) 6 mmol/L 5-14 Serum or plasma urea nitrogen measurement (mass/volume) 17 mg/dL 7-18 Serum or plasma creatinine measurement (mass/volume) 0.57 mg/dL 0.60-1.30 Serum or plasma urea nitrogen/creatinine mass ratio 30 NRG Serum or plasma creatinine measurement with calculation of estimated glomerular filtration rate > NRG Serum or plasma glucose measurement (mass/volume) 138 mg/dL 70-105 Serum or plasma calcium measurement (mass/volume) 8.4 mg/dL 8.5-10.1 Serum or plasma total bilirubin measurement (mass/volume) 0.4 mg/dL 0.1-1.0 Serum or plasma alkaline phosphatase measurement (enzymatic activity/volume) 33 U/L 40-136 Serum or plasma aspartate aminotransferase measurement (enzymatic activity/ volume) 13 U/L 5-34 Serum or plasma alanine aminotransferase measurement (enzymatic activity/volume ) 7 U/L 0-55 Serum or plasma protein measurement (mass/volume) 5.7 g/dL 6.4-8.2 Serum or plasma albumin measurement (mass/volume) 3.6 g/dL 3.2-4.5 CALCIUM CORRECTED 8.7 mg/dL 8.5-10.1 Activated partial thromboplastin time (aPTT) in platelet poor plasma bycoagulation assay - 01/29/19 22:02 Activated partial thromboplastin time (aPTT) in platelet poor plasma bycoagulation assay 120 s 24-35 Automated blood complete blood count (hemogram) panel - 01/30/19 06:00 Blood leukocytes automated count (number/volume) 9.3 10*3/uL 4.3-11.0 Blood erythrocytes automated count (number/volume) 3.71 10*6/uL 4.35-5.85 Venous blood hemoglobin measurement (mass/volume) 12.3 g/dL 11.5-16.0 Blood hematocrit (volume fraction) 35 % 35-52 Automated erythrocyte mean corpuscular volume 94 [foz_us] 80-99 Automated erythrocyte mean corpuscular hemoglobin (mass per erythrocyte) 33 pg 25-34 Automated erythrocyte mean corpuscular hemoglobin concentration measurement ( mass/volume) 35 g/dL 32-36 Automated erythrocyte distribution width ratio 13.1 % 10.0-14.5 Automated blood platelet count (count/volume) 244 10*3/uL 130-400 Automated blood platelet mean volume measurement 10.2 [foz_us] 7.4-10.4 Activated partial thromboplastin time (aPTT) in platelet poor plasma bycoagulation assay - 01/30/19 06:00 Activated partial thromboplastin time (aPTT) in platelet poor plasma bycoagulation assay 126 s 24-35 Comprehensive metabolic panel - 01/30/19 06:00 Serum or plasma sodium measurement (moles/volume) 129 mmol/L 135-145 Serum or plasma potassium measurement (moles/volume) 3.9 mmol/L 3.6-5.0 Serum or plasma chloride measurement (moles/volume) 95 mmol/L 98-107 Carbon dioxide 25 mmol/L 21-32 Serum or plasma anion gap determination (moles/volume) 9 mmol/L 5-14 Serum or plasma urea nitrogen measurement (mass/volume) 20 mg/dL 7-18 Serum or plasma creatinine measurement (mass/volume) 0.57 mg/dL 0.60-1.30 Serum or plasma urea nitrogen/creatinine mass ratio 35 NRG Serum or plasma creatinine measurement with calculation of estimated glomerular filtration rate > NRG Serum or plasma glucose measurement (mass/volume) 109 mg/dL 70-105 Serum or plasma calcium measurement (mass/volume) 8.2 mg/dL 8.5-10.1 Serum or plasma total bilirubin measurement (mass/volume) 0.3 mg/dL 0.1-1.0 Serum or plasma alkaline phosphatase measurement (enzymatic activity/volume) 28 U/L 40-136 Serum or plasma aspartate aminotransferase measurement (enzymatic activity/ volume) 12 U/L 5-34 Serum or plasma alanine aminotransferase measurement (enzymatic activity/volume ) 6 U/L 0-55 Serum or plasma protein measurement (mass/volume) 5.3 g/dL 6.4-8.2 Serum or plasma albumin measurement (mass/volume) 3.4 g/dL 3.2-4.5 CALCIUM CORRECTED 8.7 mg/dL 8.5-10.1 Stool occult blood screen - 01/30/19 08:00 Stool gastrointestinal hemoglobin detection POSITIVE NEGATIVE Complete blood count (CBC) with automated white blood cell (WBC) differential - 01/30/19 14:39 Blood leukocytes automated count (number/volume) 8.0 10*3/uL 4.3-11.0 Blood erythrocytes automated count (number/volume) 3.70 10*6/uL 4.35-5.85 Venous blood hemoglobin measurement (mass/volume) 12.2 g/dL 11.5-16.0 Blood hematocrit (volume fraction) 35 % 35-52 Automated erythrocyte mean corpuscular volume 96 [foz_us] 80-99 Automated erythrocyte mean corpuscular hemoglobin (mass per erythrocyte) 33 pg 25-34 Automated erythrocyte mean corpuscular hemoglobin concentration measurement ( mass/volume) 35 g/dL 32-36 Automated erythrocyte distribution width ratio 13.3 % 10.0-14.5 Automated blood platelet count (count/volume) 226 10*3/uL 130-400 Automated blood platelet mean volume measurement 9.9 [foz_us] 7.4-10.4 Automated blood neutrophils/100 leukocytes 70 % 42-75 Automated blood lymphocytes/100 leukocytes 15 % 12-44 Blood monocytes/100 leukocytes 14 % 0-12 Automated blood eosinophils/100 leukocytes 2 % 0-10 Automated blood basophils/100 leukocytes 0 % 0-10 Blood neutrophils automated count (number/volume) 5.6 10*3 1.8-7.8 Blood lymphocytes automated count (number/volume) 1.2 10*3 1.0-4.0 Blood monocytes automated count (number/volume) 1.1 10*3 0.0-1.0 Automated eosinophil count 0.1 10*3/uL 0.0-0.3 Automated blood basophil count (count/volume) 0.0 10*3/uL 0.0-0.1 Activated partial thromboplastin time (aPTT) in platelet poor plasma bycoagulation assay - 01/30/19 14:39 Activated partial thromboplastin time (aPTT) in platelet poor plasma bycoagulation assay 67 s 24-35 Activated partial thromboplastin time (aPTT) in platelet poor plasma bycoagulation assay - 01/30/19 22:20 Activated partial thromboplastin time (aPTT) in platelet poor plasma bycoagulation assay 137 s 24-35 Complete blood count (CBC) with automated white blood cell (WBC) differential - 01/31/19 05:55 Blood leukocytes automated count (number/volume) 6.8 10*3/uL 4.3-11.0 Blood erythrocytes automated count (number/volume) 3.62 10*6/uL 4.35-5.85 Venous blood hemoglobin measurement (mass/volume) 11.8 g/dL 11.5-16.0 Blood hematocrit (volume fraction) 35 % 35-52 Automated erythrocyte mean corpuscular volume 96 [foz_us] 80-99 Automated erythrocyte mean corpuscular hemoglobin (mass per erythrocyte) 33 pg 25-34 Automated erythrocyte mean corpuscular hemoglobin concentration measurement ( mass/volume) 34 g/dL 32-36 Automated erythrocyte distribution width ratio 13.3 % 10.0-14.5 Automated blood platelet count (count/volume) 224 10*3/uL 130-400 Automated blood platelet mean volume measurement 10.4 [foz_us] 7.4-10.4 Automated blood neutrophils/100 leukocytes 63 % 42-75 Automated blood lymphocytes/100 leukocytes 18 % 12-44 Blood monocytes/100 leukocytes 15 % 0-12 Automated blood eosinophils/100 leukocytes 3 % 0-10 Automated blood basophils/100 leukocytes 1 % 0-10 Blood neutrophils automated count (number/volume) 4.3 10*3 1.8-7.8 Blood lymphocytes automated count (number/volume) 1.2 10*3 1.0-4.0 Blood monocytes automated count (number/volume) 1.0 10*3 0.0-1.0 Automated eosinophil count 0.2 10*3/uL 0.0-0.3 Automated blood basophil count (count/volume) 0.0 10*3/uL 0.0-0.1 Comprehensive metabolic panel - 01/31/19 05:55 Serum or plasma sodium measurement (moles/volume) 130 mmol/L 135-145 Serum or plasma potassium measurement (moles/volume) 3.8 mmol/L 3.6-5.0 Serum or plasma chloride measurement (moles/volume) 99 mmol/L 98-107 Carbon dioxide 23 mmol/L 21-32 Serum or plasma anion gap determination (moles/volume) 8 mmol/L 5-14 Serum or plasma urea nitrogen measurement (mass/volume) 12 mg/dL 7-18 Serum or plasma creatinine measurement (mass/volume) 0.59 mg/dL 0.60-1.30 Serum or plasma urea nitrogen/creatinine mass ratio 20 NRG Serum or plasma creatinine measurement with calculation of estimated glomerular filtration rate > NRG Serum or plasma glucose measurement (mass/volume) 95 mg/dL 70-105 Serum or plasma calcium measurement (mass/volume) 8.0 mg/dL 8.5-10.1 Serum or plasma total bilirubin measurement (mass/volume) 0.3 mg/dL 0.1-1.0 Serum or plasma alkaline phosphatase measurement (enzymatic activity/volume) 28 U/L 40-136 Serum or plasma aspartate aminotransferase measurement (enzymatic activity/ volume) 12 U/L 5-34 Serum or plasma alanine aminotransferase measurement (enzymatic activity/volume ) 6 U/L 0-55 Serum or plasma protein measurement (mass/volume) 4.9 g/dL 6.4-8.2 Serum or plasma albumin measurement (mass/volume) 3.1 g/dL 3.2-4.5 CALCIUM CORRECTED 8.7 mg/dL 8.5-10.1 Activated partial thromboplastin time (aPTT) in platelet poor plasma bycoagulation assay - 01/31/19 05:55 Activated partial thromboplastin time (aPTT) in platelet poor plasma bycoagulation assay 91 s 24-35 Activated partial thromboplastin time (aPTT) in platelet poor plasma bycoagulation assay - 01/31/19 12:30 Activated partial thromboplastin time (aPTT) in platelet poor plasma bycoagulation assay 55 s 24-35 Encounters ACCT No. Visit Date/Time Discharge Status Pt. Type Provider Facility Loc./Unit Complaint [id number] 01/23/2019 19:04:00 02/01/2019 08:15:00 DIS Inpatient PAPABLAIR MARTÍNEZ LORE Perez [facility] 4TH SMALL BOWEL OBSTRUCTION [id number] 09/07/2018 11:12:00 09/07/2018 23:59:59 CLS Outpatient PAPALORE PINTO DO [facility] RAD RIGHT HAND AND BACK THUMB PAIN AND NUMBNESS [id number] 07/18/2018 17:37:00 07/18/2018 23:59:59 CLS Outpatient LORE POWELL DO [facility] RAD LOWER BACK PAIN [id number] 06/30/2018 17:53:00 06/30/2018 23:59:59 CLS Outpatient ANDRE DO LORE Ana [facility] MLF C DIFF/STOOL CULTURE [id number] 05/19/2018 20:13:00 05/19/2018 23:59:59 CLS Outpatient PAPAGIOVANNIKALA LORE MARTÍNEZ [facility] MLF [id number] 04/18/2018 16:54:00 04/18/2018 23:59:59 CLS Outpatient LORE POWELL DO [facility] RAD FX RIGHT 5TH METATARSAL [id number] 03/30/2018 11:11:00 03/30/2018 23:59:59 CLS Outpatient PAPALORE PINTO DO [facility] RAD DIARRHEA, FX OF 5TH RIGHT METATARSAL [id number] 03/20/2018 07:42:00 03/20/2018 23:59:59 CLS Outpatient MECCA FRANCIS [facility] CARD I48.0 PAF [id number] 03/08/2018 16:17:00 03/08/2018 23:59:59 CLS Outpatient LORE POWELL DO [facility] RAD FX OF 5TH RIGHT METATARSAL [id number] 02/11/2018 12:22:00 02/12/2018 15:55:00 DIS Inpatient JOVANI CAVAZOS DO [facility] ICU ATRIAL TACHYCARDIA [id number] 01/11/2018 16:57:00 01/11/2018 23:59:59 CLS Outpatient LORE POWELL DO [facility] LAB URINE FREQUENCY AT NIGHT [id number] 12/21/2017 16:23:00 12/21/2017 23:59:59 CLS Outpatient LORE POWELL DO [facility] LAB N39.0 [id number] 08/21/2017 16:39:00 08/21/2017 23:59:59 CLS Outpatient LORE POWELL DO [facility] RAD VAGINAL BLEEDING [id number] 12/22/2016 15:32:00 12/22/2016 17:35:00 DIS Emergency DESTINY KASPER [facility] ER CONGESTION;COUGH;WEAKNESS [id number] 10/20/2016 10:33:00 10/20/2016 16:00:00 DIS Outpatient PAKO CARTER MD [facility] WOUNDCARE [id number] 09/05/2016 11:05:00 09/10/2016 15:15:00 DIS Inpatient LORE POWELL DO [facility] 4TH CYST WITH ABCESS [id number] 12/23/2014 10:19:00 12/23/2014 23:59:59 CLS Outpatient LORE POWELL DO [facility] RAD SCREENING [id number] 12/02/2013 14:28:00 12/02/2013 23:59:59 CLS Outpatient MEDKALA LOER MARTÍNEZ [facility] RAD SCREENING [id number] 02/01/2019 08:24:00 ACT Inpatient LORE POWELL DO [facility] 4TH SWB,WEAKNESS,GAIT EXERCISE [id number] 06/28/2018 00:00:00 Document Registration [id number] 12/23/2014 10:20:00 Document Registration [id number] 12/23/2014 10:19:00 Document Registration [id number] 09/09/2011 11:04:00 Document Registration [id number] 07/22/2010 10:24:00 Document Registration
--- NOTE | 2019-02-01 09:00 | NUR ---
Admission Drug Regimen Review: Date: 02/01/19 Time: 0900 Review Completed, No Issues found Dr. Morales completed the admission orders and as he evaluated the orders he discontinued several things including the Reglan order, Fentanyl order, et the nursing intervention to start the heparin gtt. These medications are no longer needed et it is correct that they did not continue on the swing bed account.
--- NOTE | 2019-02-01 09:42 | Physical Therapy Evaluation ---
PT Evaluation-General Medical Diagnosis Admission Date Feb 01, 2019 at 08:24 Medical Diagnosis: bowel obstruction Onset Date: Jan 25, 2019 Therapy Diagnosis Therapy Diagnosis: debility Height/Weight Height (Feet): 5 Height (Inches): 5.00 Weight (Pounds): 129 Weight (Ounces): 8.0 Precautions Precautions/Isolations: Standard Precautions Weight Bear Status Right Lower Extremity: Right Weight Bearing/Tolerated Left Lower Extremity: Left Weight Bearing/Tolerated Referral Physician: Carmen Reason for Referral: Evaluation/Treatment Medical History Pertinent Medical History: Arthritis Current History SWB status Reviewed History: Yes Social History Home: Single Level Current Living Status: Children Prior/Core FIM Prior Level of Function Therapy Code Descriptions/Definitions Functional Ola Measure: 0=Not Assessed/NA 4=Minimal Assistance 1=Total Assistance 5=Supervision or Setup 2=Maximal Assistance 6=Modified Ola 3=Moderate Assistance 7=Complete Ola Therapy Quality Codes: 6 Independent with activity with or without an assistive device 5 Patient requires set up or clean up by helper. Patient completes activity by themselves 4 Supervision or touching assist (CGA). Deville provide cues , steadying assist 3 The helper provides less than half the effort to complete the activity 2 The helper provides more than half the effort to complete the activity 1 Dependent. The helper does all the effort to complete an activity 7 Patient refused to complete or attempt activity 9 The patient did not perform the activity before the current illness or injury 88 Not attempted due to Medical conditions or safety concerns Functional Abilities and Goals: Independent: Patient completed the activities by him/herself, with or without an assistive device, with no assistance from a helper. Needed Some Help: Patient needed partial assistance from another person to complete activities. Dependent: A helper completed the activities for the patient. Unknown: Not Applicable: Bed Mobility: 6 Transfers (B,C,W/C) (FIM): 6 Gait: 6 Indoor Mobility (Ambulation): Independent Stairs: Needed Some Help Prior Devices Use: Walker PT Evaluation-Current Subjective Patient agrees to PT. No c/o. Pain Numeric Pain Scale: 0-No Pain Location: No Pain Reported Objective Patient Orientation: Normal For Age Problem Solving: Fair Attachments: IV ROM/Strength ROM Lower Extremities bilateral LE WFL Strenght Lower Extremities 4-/5 grossly bilateral LE Integumentary/Posture Integumentary refer to nursing notes Bowel Incontinence: Yes Bladder Incontinence: Yes Posture kyphotic Neuromuscular (Tone, Coordination, Reflexes) grossly intact Sensory Vision: Wears Glasses Hearing: Functional Sensation Right Lower Extremit: Intact Sensation Left Lower Extremity: Intact Transfers Therapy Code Descriptions/Definitions Functional Ola Measure: 0=Not Assessed/NA 4=Minimal Assistance 1=Total Assistance 5=Supervision or Setup 2=Maximal Assistance 6=Modified Ola 3=Moderate Assistance 7=Complete Ola Therapy Quality Codes: 6 Independent with activity with or without an assistive device 5 Patient requires set up or clean up by helper. Patient completes activity by themselves 4 Supervision or touching assist (CGA). Deville provide cues , steadying assist 3 The helper provides less than half the effort to complete the activity 2 The helper provides more than half the effort to complete the activity 1 Dependent. The helper does all the effort to complete an activity 7 Patient refused to complete or attempt activity 9 The patient did not perform the activity before the current illness or injury 88 Not attempted due to Medical conditions or safety concerns Transfers (B, C, W/C) (FIM): 5 Scootin Rollin Roll Left to Right (QC): 5 Supine to/from Sit: 5 Sit to/from Stand: 5 Sit to Lying (QC): 5 Lying to Sitting/Side of Bed(Q: 5 Sit to Stand (QC): 5 Chair/Pmp-jo-Lczum Xfer(QC): 5 Gait Does the Patient Walk?: Yes Mode of Locomotion: Walk Anticipated Mode of Locomotion: Walk Gait (FIM): 5 Distance (FIM): 3=150 ft Walk 10 feet (QC): 5 Walk 50 ft with 2 Turns(QC): 5 Walk 150 ft (QC): 5 Walking 10ft/uneven surface-QC: 5 (carpet in waiting room) Distance: 325' Gait Level of Assist: 5 Gait Persons Needed: 1 Gait Assistive Device: FWW Comments/Gait Description NBOS and slight shuffle gait sequence Balance Sitting Static: Normal Sitting Dynamic: Normal Standing Static: Fair Standing Dynamic: Fair Treatment Ambulation with FWW SBA x 325' with shuffle gait sequence. Bilateral LE exercises supine and sit 10 reps each AP, HS, QS, SLR, LAQ Assessment/Needs 88 y.o. female, will benefit from skilled PT to address functional strength and mobility to improve current LOF and to safely return to home with family at maximum LOF. Rehab Potential: Fair PT Chief Of Anesthesiology Goals Chief Of Anesthesiology Goals PT Chief Of Anesthesiology Goals Time Frame: Feb 10, 2019 Transfers (B,C,W/C) (FIM): 6 Sit to Lying (QC): 6 Lying-Sitting on Side/Bed(QC): 6 Sit to Stand (QC): 6 Rollin Roll Left to Right (QC): 6 Chair/Guh-ck-Ucmkq Xfer(QC): 6 Car Transfer (QC): 6 Does the Patient Walk: Yes Gait (FIM): 6 Gait distance (FIM): 3=150 ft Distance: 350' Walk 10 feet (QC): 6 Walk 10ft-Uneven Surface(QC): 6 Walk 50ft with 2 Turns (QC): 6 Walk 150 ft (QC): 6 Gait Level of Assist: 6 Gait Assistive Device: FWW PT Plan Problem List Problem List: Activity Tolerance, Functional Strength, Gait Treatment/Plan Treatment Plan: Continue Plan of Care Treatment Plan: Bed Mobility, Education, Functional Activity Syl, Functional Strength, Gait, Safety, Therapeutic Exercise, Transfers Treatment Duration: Feb 10, 2019 Frequency: 6 times per week Estimated Hrs Per Day: .25 hour per day Patient and/or Family Agrees t: Yes Safety Risks/Education Patient Education: Safety Issues Teaching Recipient: Patient Teaching Methods: Discussion Response to Teaching: Verbalize Understanding Discharge Recommendations Therapy D/C Recommendations: Home w/ Family Support Time/GCodes Time In: 839 Time Out: 902 Total Billed Treatment Time: 23 Total Billed Treatment 1 visit EVLowC 8 min FA 15 min ANAHI JOHNSON PT Feb 01, 2019 09:42
[2019-02-01] MEDS: ALPRAZolam 0.25 MG (XANAX) TAB PO SCH ×2 (10:14→21:11)
[2019-02-01] MEDS: APIXABAN 5 MG (ELIQUIS) TABLET PO SCH ×2 (10:14→21:11)
[2019-02-01] MEDS: lisINopril 5 MG (PRINIVIL) TABLET PO SCH (10:14)
[2019-02-01] MEDS: PANTOPRAZOLE 40 MG (PROTONIX) VIAL IV SCH (10:15)
[2019-02-01] MEDS ORDERED: CIPROFLOXACIN IV 400MG/200ML 200 ML IV SCH (13:00)
--- NOTE | 2019-02-01 14:20 | NUR ---
Pastoral care visit.
--- NOTE | 2019-02-01 14:25 | Occupational Therapy Eval ---
OT Evaluation-General/PLF Medical Diagnosis Admission Date Feb 01, 2019 at 08:24 Medical Diagnosis: bowel obstruction Onset Date: Jan 25, 2019 Therapy Diagnosis Therapy Diagnosis: Weakness. Height/Weight Height (Feet): 5 Height (Inches): 5.00 Weight (Pounds): 129 Weight (Ounces): 8.0 Precautions Precautions/Isolations: Standard Precautions Weight Bear Status Weight Bearing Restriction: Full Weight Bearing Location Restriction: L DANIEL, R DANIEL Referral Physician: Carmen Referral Reason: Activity Tolerance, Self Care, Evaluation/Treatment, Strengthening/ROM Medical History Pertinent Medical History: Arthritis Additional Medical History PMHx GERD, BRONCHITIS, COUGH, NAUSEA & VOMITTING, ANXIETY, Current History Swing Bed Status. Reviewed History: Yes Social History Home: Single Level Current Living Status: Children Entry Into Home: Ramp ADL-Prior Level of Function Therapy Code Descriptions/Definitions Functional [place] Measure: 0=Not Assessed/NA 4=Minimal Assistance 1=Total Assistance 5=Supervision or Setup 2=Maximal Assistance 6=Modified [place] 3=Moderate Assistance 7=Complete [place] Therapy Quality Codes: 6 Independent with activity with or without an assistive device 5 Patient requires set up or clean up by helper. Patient completes activity by themselves 4 Supervision or touching assist (CGA). [place] provide cues , steadying assist 3 The helper provides less than half the effort to complete the activity 2 The helper provides more than half the effort to complete the activity 1 Dependent. The helper does all the effort to complete an activity 7 Patient refused to complete or attempt activity 9 The patient did not perform the activity before the current illness or injury 88 Not attempted due to Medical conditions or safety concerns Functional Abilities and Goals: Independent: Patient completed the activities by him/herself, with or without an assistive device, with no assistance from a helper. Needed Some Help: Patient needed partial assistance from another person to complete activities. Dependent: A helper completed the activities for the patient. Unknown: Not Applicable: ADL PLOF Comments Pt was Independent in all self care tasks & func. mobility inside the house without walker . Out side the house , pt"s family takes her on w/c using builted ramp . Very supportive family. Self Care: Independent Functional Cognition: Needed Some Help DME/Equipment: Bath Bench, Grab Bars, Shower Hose Yardage [address] Self: No OT Current Status Subjective Pt in recliner, alert, oriented, cooperative & agree for therapy. Pain Numeric Pain Scale: 0-No Pain Location: No Pain Reported Mental Status/Objective Patient Orientation: Person, Confused, Place, Situation Attachments: Lord Catheter, IV Current Glasses/Contacts: Yes Dentures/Partials: Yes Hand Dominance: Right Upper Extremity ROM WFL Upper Extremity Coordination Intact Upper Extremity Sensation Intact Upper Extremity Strength MS in BUE -4/5 grossly graded, Hand bridge attacher poor. ADL-Treatment ADL-Current Pt participated in OT assessment, Pt requires min A in wiping UB & LB , back , & grooming activity, Min A in sit to stand with FWW. Pt ambulate with SBA using FWW 150 feet using gait belt. MS in BUE -4/5 grossly graded & poor hand bridge attacher.. Fair endurance, fatigue soon. Eating (FIM): 5 Eating (QC): 5 Grooming (FIM): 4 Oral Hygiene (QC): 4 Bathing (FIM): 3 (Using warm wipes.) Bathing Location: L Arm, R Arm, L Upper Leg, R Upper Leg, Chest, Abdomen Shower/Bathe Self (QC): 0 Upper Body Dressing (FIM): 3 Upper Body Dressing (QC): 3 Lower Body Dressing (FIM): 0 Lower Body Dressing (QC): 0 On/Off Footwear (QC): 2 Transfers (B, C, W/C) (FIM): 4 Education OT Patient Education: Correct positioning Teaching Recipient: Patient Teaching Methods: Demonstration Response to Teaching: Verbalize Understanding OT Short Term Goals Short Term Goals Time Frame: Feb 15, 2019 Additional Short Term Goals: 1-Demonstrate ADL Tasks, 2-Verbalize Understanding , 3-ImproveStrength/Syl 1=Demonstrate adherence to instructed precautions during ADL tasks. 2=Patient will verbalize/demonstrate understanding of assistive devices/ modifications for ADL. 3=Patient will improve strength/tolerance for activity to enable patient to perform ADL's. OT Care Home Goals Care Home Goals Time Frame: Mar 01, 2019 Eating (FIM): 6 Eating (QC): 6 Groomin Oral Hygiene (QC): 5 Bathing(FIM): 5 Bathing Location: L Arm, R Arm, L Upper Leg, R Upper Leg, L Lower Leg ( including foot), R Lower Leg (including foot), Chest, Abdomen, Buttocks, Perineal Area Shower/Bathe Self (QC): 5 Upper Body Dressing(FIM): 6 Upper Body Dressing (QC): 5 Lower Body Dressing(FIM): 5 Lower Body Dressing (QC): 5 On/Off Footwear (QC): 5 Toileting(FIM): 6 Toileting Hygiene (QC): 5 Transfers (B,C,W/C) (FIM): 6 Toilet/Commode Transfer(FIM): 6 Toilet/Commode Transfer (QC): 5 Tub Transfer(FIM): 0 Shower Transfer(FIM): 6 Additional Goals: 1-Demonstrate ADL Tasks, 2-Verbalize Understanding, 3- ImproveStrength/Syl 1=Demonstrate adherence to instructed precautions during ADL tasks. 2=Patient will verbalize/demonstrate understanding of assistive devices/ modifications for ADL. 3=Patient will improve strength/tolerance for activity to enable patient to perform ADL's. OT Education/Plan Problem List/Assessment Assessment: Decreased Activ Tolerance, Decreased Safety Aware, Decreased UE Strength, Dependent Transfers, Impaired Bed Mobility, Impaired Funct Balance, Impaired Self-Care Skills Discharge Recommendations Plan/Recommendations: Continue POC Therapy D/C Recommendations: Home w/ Family Support Equpiment Recommendations-D/C: Extended Bath Bench, Extended Shower Sprayer, Machine Bender Patient/Family Goals To return home with children Independently. Treatment Plan/Plan of Care Treatment,Training & Education: Yes Patient would benefit from OT for education, treatment and training to promote independence in ADL's, mobility, safety and/or upper extremity function for ADL' s. Plan of Care: ADL Retraining, Caregiver Training, Functional Mobility, UE Funct Exercise/Act, UE Neuromus Re-Ed/Coord Treatment Duration: Mar 01, 2019 Frequency: 5 times per week Estimated Hrs Per Day: .5 hour per day Agreement: Yes Rehab Potential: Good Time/GCodes Start Time: 13:00 Stop Time: 13:45 Total Time Billed (hr/min): 45 Billed Treatment Time 1, EVM 17,min, ADLs 18, Ex 10 min. Total 45 min. MEENA ROSE OT Feb 01, 2019 14:25
--- NOTE | 2019-02-01 15:36 | NUR ---
Information Systems Administrator follow up: Pt recalled this reagent tender from previous visits throughout the past 6 years, and during the times her was a patient. She shared at length about her 's recent . Pt will celebrate her 89th birthday Monday.
[2019-02-01 18:00] VITALS: BP 146/68
[2019-02-01] MEDS: MELATONIN 3 MG TABLET PO SCH (21:11)
[2019-02-02] MEDS: NS IV 1000 ML 1,000 ML IV SCH ×2 (00:38→23:52)
[2019-02-02 05:27] VITALS: BP 145/64
[2019-02-02] MEDS: lisINopril 5 MG (PRINIVIL) TABLET PO SCH (08:44)
[2019-02-02] MEDS: ALPRAZolam 0.25 MG (XANAX) TAB PO SCH ×2 (08:44→19:50)
[2019-02-02] MEDS: PANTOPRAZOLE 40 MG (PROTONIX) VIAL IV SCH (08:44)
[2019-02-02] MEDS: APIXABAN 5 MG (ELIQUIS) TABLET PO SCH ×2 (08:44→19:50)
[2019-02-02] MEDS: diphenhydrAMINE 25 MG TAB (BENADRYL) PO PRN ×3 (09:50→22:18)
--- NOTE | 2019-02-02 10:18 | Physical Therapy Daily Note ---
PT Daily Note-Current Subjective States that she is really tired and would rather just do bed exercises today. Transfers Therapy Code Descriptions/Definitions Functional [place] Measure: 0=Not Assessed/NA 4=Minimal Assistance 1=Total Assistance 5=Supervision or Setup 2=Maximal Assistance 6=Modified [place] 3=Moderate Assistance 7=Complete [place] Therapy Quality Codes: 6 Independent with activity with or without an assistive device 5 Patient requires set up or clean up by helper. Patient completes activity by themselves 4 Supervision or touching assist (CGA). [place] provide cues , steadying assist 3 The helper provides less than half the effort to complete the activity 2 The helper provides more than half the effort to complete the activity 1 Dependent. The helper does all the effort to complete an activity 7 Patient refused to complete or attempt activity 9 The patient did not perform the activity before the current illness or injury 88 Not attempted due to Medical conditions or safety concerns Weight Bearing Right Lower Extremity: Right Weight Bearing/Tolerated Left Lower Extremity: Left Weight Bearing/Tolerated Exercises Supine Ex: LE Protocol Supine Reps: 20 Assessment Current Status: Excellent Progress Patient did well with all activities today. PT Fermenting Cellars Supervisor Goals Care Home Goals PT Fermenting Cellars Supervisor Goals Time Frame: Feb 10, 2019 Transfers (B,C,W/C) (FIM): 6 Sit to Lying (QC): 6 Lying-Sitting on Side/Bed(QC): 6 Sit to Stand (QC): 6 Rollin Roll Left to Right (QC): 6 Chair/Rzk-hv-Hsoki Xfer(QC): 6 Car Transfer (QC): 6 Does the Patient Walk: Yes Gait (FIM): 6 Gait distance (FIM): 3=150 ft Distance: 350' Walk 10 feet (QC): 6 Walk 10ft-Uneven Surface(QC): 6 Walk 50ft with 2 Turns (QC): 6 Walk 150 ft (QC): 6 Gait Level of Assist: 6 Gait Assistive Device: FWW PT Plan Treatment/Plan Treatment Plan: Continue Plan of Care Treatment Plan: Bed Mobility, Education, Functional Activity Syl, Functional Strength, Gait, Safety, Therapeutic Exercise, Transfers Treatment Duration: Feb 10, 2019 Frequency: 6 times per week Estimated Hrs Per Day: .25 hour per day Patient and/or Family Agrees t: Yes Time/GCodes Time In: 1000 Time Out: 1015 Total Billed Treatment Time: 15 Total Billed Treatment 1, EX x 15' EDNA WEST PT Feb 02, 2019 10:18
[2019-02-02 18:00] VITALS: BP 146/69
[2019-02-02] MEDS: MELATONIN 3 MG TABLET PO SCH (22:19)
[2019-02-03] MEDS: diphenhydrAMINE 25 MG TAB (BENADRYL) PO PRN ×2 (03:21→21:26)
[2019-02-03 05:18] VITALS: BP 152/67
[2019-02-03] MEDS: PANTOPRAZOLE 40 MG (PROTONIX) VIAL IV SCH (08:40)
[2019-02-03] MEDS: NS IV 1000 ML 1,000 ML IV SCH (08:40)
[2019-02-03] MEDS: ALPRAZolam 0.25 MG (XANAX) TAB PO SCH ×2 (08:40→21:26)
[2019-02-03] MEDS: lisINopril 5 MG (PRINIVIL) TABLET PO SCH (08:40)
[2019-02-03] MEDS: APIXABAN 5 MG (ELIQUIS) TABLET PO SCH ×2 (08:41→21:26)
[2019-02-03 17:36] VITALS: BP 169/83
[2019-02-03] MEDS: MELATONIN 3 MG TABLET PO SCH (21:26)
[2019-02-04] MEDS: NS IV 1000 ML 1,000 ML IV SCH (01:26)
[2019-02-04] MEDS: diphenhydrAMINE 25 MG TAB (BENADRYL) PO PRN ×2 (02:49→21:03)
[2019-02-04 06:00] VITALS: BP 171/82
--- NOTE | 2019-02-04 07:40 | Progress Note (SOAP) ---
Subjective Time Seen by a Provider: 07:35 Subjective/Events-last exam weakness, gait problem Objective Exam Vital Signs Date Time Temp Pulse Resp B/P (MAP) Pulse Ox O2 Delivery O2 Flow Rate FiO2 02/04/19 06:00 99.2 59 18 171/82 (111) 96 Room Air 02/03/19 21:00 Room Air 02/03/19 17:36 97.9 64 20 169/83 (111) 97 Room Air 02/03/19 09:00 Room Air I & O 02/04/19 07:00 Intake Total 1010 ml Balance 1010 ml Capillary Refill : General Appearance: No Apparent Distress, WD/WN HEENT: Normal ENT Inspection Neck: Full Range of Motion, Normal Inspection Respiratory: Lungs Clear, No Accessory Muscle Use, No Respiratory Distress Cardiovascular: Regular Rate, Rhythm, No Murmur Gastrointestinal: non tender, soft Assessment/Plan Assessment/Plan Assess & Plan/Chief Complaint weakness gait problem pt. not able to take care of self Clinical Quality Measures DVT/VTE Risk/Contraindication: Risk Factor Score Per Nursin LORE POWELL DO Feb 04, 2019 07:40
[2019-02-04] MEDS: APIXABAN 5 MG (ELIQUIS) TABLET PO SCH ×2 (09:49→20:58)
[2019-02-04] MEDS: PANTOPRAZOLE 40 MG (PROTONIX) VIAL IV SCH (09:50)
[2019-02-04] MEDS: ALPRAZolam 0.25 MG (XANAX) TAB PO SCH ×2 (09:50→20:58)
[2019-02-04] MEDS: lisINopril 10 MG (PRINIVIL) TABLET PO SCH (09:50)
--- NOTE | 2019-02-04 11:12 | Physical Therapy Daily Note ---
PT Daily Note-Current Subjective Patient is in bed and agrees to PT. No c/o. Mental Status Patient Orientation: Normal For Age Transfers Therapy Code Descriptions/Definitions Functional [place] Measure: 0=Not Assessed/NA 4=Minimal Assistance 1=Total Assistance 5=Supervision or Setup 2=Maximal Assistance 6=Modified [place] 3=Moderate Assistance 7=Complete [place] Therapy Quality Codes: 6 Independent with activity with or without an assistive device 5 Patient requires set up or clean up by helper. Patient completes activity by themselves 4 Supervision or touching assist (CGA). [place] provide cues , steadying assist 3 The helper provides less than half the effort to complete the activity 2 The helper provides more than half the effort to complete the activity 1 Dependent. The helper does all the effort to complete an activity 7 Patient refused to complete or attempt activity 9 The patient did not perform the activity before the current illness or injury 88 Not attempted due to Medical conditions or safety concerns Transfers (B, C, W/C) (FIM): 6 Scootin Roll Left to Right (QC): 6 Supine to/from Sit: 6 Sit to/from Stand: 6 Sit to Lying (QC): 6 Sit to Stand (QC): 6 Weight Bearing Right Lower Extremity: Right Weight Bearing/Tolerated Left Lower Extremity: Left Weight Bearing/Tolerated Gait Training Does the Patient Walk?: Yes Gait (FIM): 6 Distance (FIM): 3=150 ft Distance: 400' Walk 10 feet (QC): 6 Walk 50 ft with 2 Turns(QC): 6 Walk 150 ft (QC): 6 Gait Level of Assist: 6 Gait Assistive Device: FWW NBOS/safe and functional Assessment Patient tolerated treatment well and returned to bed with needs met. Patient is currently at [facility] with all gross motor skills safely. PT Prison Goals Prison Goals PT Rotary Dryer Operator Goals Time Frame: Feb 10, 2019 Transfers (B,C,W/C) (FIM): 6 Sit to Lying (QC): 6 Lying-Sitting on Side/Bed(QC): 6 Sit to Stand (QC): 6 Rollin Roll Left to Right (QC): 6 Chair/Xuz-gw-Wznny Xfer(QC): 6 Car Transfer (QC): 6 Does the Patient Walk: Yes Gait (FIM): 6 Gait distance (FIM): 3=150 ft Distance: 350' Walk 10 feet (QC): 6 Walk 10ft-Uneven Surface(QC): 6 Walk 50ft with 2 Turns (QC): 6 Walk 150 ft (QC): 6 Gait Level of Assist: 6 Gait Assistive Device: FWW PT Plan Treatment/Plan Treatment Plan: Continue Plan of Care Treatment Plan: Bed Mobility, Education, Functional Activity Syl, Functional Strength, Gait, Safety, Therapeutic Exercise, Transfers Treatment Duration: Feb 10, 2019 Frequency: 6 times per week Estimated Hrs Per Day: .25 hour per day Patient and/or Family Agrees t: Yes Time/GCodes Time In: 1045 Time Out: 1100 Total Billed Treatment Time: 15 Total Billed Treatment 1 visit FA 15 min ANAHI JOHNSON PT Feb 04, 2019 11:12
--- NOTE | 2019-02-04 13:28 | Occupational Ther Daily Note ---
OT Current Status-Daily Note Subjective Pt in bed, alert, oriented, cooperative & agree for therapy. Pain Numeric Pain Scale: 0-No Pain Location: No Pain Reported Mental Status/Objective Patient Orientation: Person, Place, Time Therapy Code Descriptions/Definitions Functional [place] Measure: 0=Not Assessed/NA 4=Minimal Assistance 1=Total Assistance 5=Supervision or Setup 2=Maximal Assistance 6=Modified [place] 3=Moderate Assistance 7=Complete [place] Attachments: IV, Saline Lock ADL-Treatment Pt seen today for func mobility, func transfers, & strengthening ex to BUE to participate in all self care tasks & to push up from EOB to stand. with FWW to walk. Pt walk 200 feet with FWW under the supervision of therapist. Completed 30 reps x 2 sets x 2l lb wts with BUE, 30 reps with red theraband & 25 reps x 2 sets with hand gripper to strengthen BUE to participate in all self care tasks . Therapy Code Descriptions/Definitions Functional [place] Measure: 0=Not Assessed/NA 4=Minimal Assistance 1=Total Assistance 5=Supervision or Setup 2=Maximal Assistance 6=Modified [place] 3=Moderate Assistance 7=Complete [place] Therapy Quality Codes: 6 Independent with activity with or without an assistive device 5 Patient requires set up or clean up by helper. Patient completes activity by themselves 4 Supervision or touching assist (CGA). [place] provide cues , steadying assist 3 The helper provides less than half the effort to complete the activity 2 The helper provides more than half the effort to complete the activity 1 Dependent. The helper does all the effort to complete an activity 7 Patient refused to complete or attempt activity 9 The patient did not perform the activity before the current illness or injury 88 Not attempted due to Medical conditions or safety concerns Eating (FIM): 6 Eating (QC): 6 Grooming (FIM): 5 Oral Hygiene (QC): 5 Toileting (FIM): 5 Toileting Hygiene (QC): 5 Transfers (B, C, W/C) (FIM): 5 Toilet/Commode Transfer (FIM): 5 Toilet Transfer (QC): 5 Tub Transfer(FIM): 0 Education OT Patient Education: Correct positioning Teaching Recipient: Patient Teaching Methods: Demonstration Response to Teaching: Verbalize Understanding OT Short Term Goals Short Term Goals Time Frame: Feb 15, 2019 Additional Short Term Goals: 1-Demonstrate ADL Tasks, 2-Verbalize Understanding , 3-ImproveStrength/Syl 1=Demonstrate adherence to instructed precautions during ADL tasks. 2=Patient will verbalize/demonstrate understanding of assistive devices/ modifications for ADL. 3=Patient will improve strength/tolerance for activity to enable patient to perform ADL's. OT Senior Applications Developer Goals Senior Applications Developer Goals Time Frame: Mar 01, 2019 Eating (FIM): 6 Eating (QC): 6 Groomin Oral Hygiene (QC): 5 Bathing(FIM): 5 Bathing Location: L Arm, R Arm, L Upper Leg, R Upper Leg, L Lower Leg ( including foot), R Lower Leg (including foot), Chest, Abdomen, Buttocks, Perineal Area Shower/Bathe Self (QC): 5 Upper Body Dressing(FIM): 6 Upper Body Dressing (QC): 5 Lower Body Dressing(FIM): 5 Lower Body Dressing (QC): 5 On/Off Footwear (QC): 5 Toileting(FIM): 6 Toileting Hygiene (QC): 5 Transfers (B,C,W/C) (FIM): 6 Toilet/Commode Transfer(FIM): 6 Toilet/Commode Transfer (QC): 5 Tub Transfer(FIM): 0 Shower Transfer(FIM): 6 Additional Goals: 1-Demonstrate ADL Tasks, 2-Verbalize Understanding, 3- ImproveStrength/Syl 1=Demonstrate adherence to instructed precautions during ADL tasks. 2=Patient will verbalize/demonstrate understanding of assistive devices/ modifications for ADL. 3=Patient will improve strength/tolerance for activity to enable patient to perform ADL's. OT Education/Plan Problem List/Assessment Assessment: Decreased Activ Tolerance, Decreased Safety Aware, Decreased UE Strength, Dependent Transfers, Impaired Bed Mobility, Impaired Funct Balance, Impaired Self-Care Skills Discharge Recommendations Plan/Recommendations: Continue POC Therapy D/C Recommendations: Home Independently Equpiment Recommendations-D/C: Extended Bath Bench, Extended Shower Sprayer, Coagulating Operator Patient/Family Goals To return home Independently with FWW. Treatment Plan/Plan of Care Treatment,Training & Education: Yes Patient would benefit from OT for education, treatment and training to promote independence in ADL's, mobility, safety and/or upper extremity function for ADL' s. Plan of Care: ADL Retraining, Caregiver Training, Functional Mobility, UE Funct Exercise/Act, UE Neuromus Re-Ed/Coord Treatment Duration: Mar 01, 2019 Frequency: 5 times per week Estimated Hrs Per Day: .5 hour per day Agreement: Yes Rehab Potential: Good Time/GCodes Start Time: 11:05 Stop Time: 11:30 Total Time Billed (hr/min): 25 Billed Treatment Time 1, FA 14 min, Ex 11 min. Total Min 25 minutes. MEENA ROSE OT Feb 04, 2019 13:28
[2019-02-04 18:21] VITALS: BP 182/78
[2019-02-04] MEDS: MELATONIN 3 MG TABLET PO SCH (20:58)
[2019-02-05] MEDS: diphenhydrAMINE 25 MG TAB (BENADRYL) PO PRN ×2 (02:27→21:30)
[2019-02-05 06:00] VITALS: BP 149/75
--- NOTE | 2019-02-05 07:43 | Progress Note (SOAP) ---
Subjective Time Seen by a Provider: 07:41 Subjective/Events-last exam Patient continues to improve. Patient lives alone. Patient needs a few more days. Patient wants to go home and not to a long-term Objective Exam Vital Signs Date Time Temp Pulse Resp B/P (MAP) Pulse Ox O2 Delivery O2 Flow Rate FiO2 02/05/19 06:00 97.3 68 20 149/75 (99) 97 Room Air 02/04/19 21:00 Room Air 02/04/19 18:21 98.5 77 18 182/78 (112) 98 Room Air 02/04/19 08:20 Room Air I & O 02/05/19 07:00 Intake Total 1140 ml Balance 1140 ml Capillary Refill : General Appearance: No Apparent Distress, Thin HEENT: Normal ENT Inspection Neck: Full Range of Motion, Normal Inspection Respiratory: Lungs Clear, No Accessory Muscle Use, No Respiratory Distress Cardiovascular: Regular Rate, Rhythm, No Murmur Assessment/Plan Assessment/Plan Assess & Plan/Chief Complaint weakness gait problem pt. not able to take care of self. . 02/05/19. Hypertension. Weakness. Gait problem. Patient lives alone. Patient continues to improve Plan to send patient home and not long-term Clinical Quality Measures DVT/VTE Risk/Contraindication: Risk Factor Score Per Nursin LORE POWELL DO Feb 05, 2019 07:43
[2019-02-05 08:09] LABS: HEMOGLOBIN 12.7 G/DL (11.5-16.0); MEAN PLATELET VOLUME 9.5 FL (7.4-10.4); RED CELL DISTRIBUTION WIDTH 14.1 % (10.0-14.5); WHITE BLOOD COUNT 8.4 10^3/uL (4.3-11.0)
[2019-02-05 08:24] LABS: BUN/CREATININE RATIO 10; CALCIUM 8.6 MG/DL (8.5-10.1); CARBON DIOXIDE 26 MMOL/L (21-32); CHLORIDE 102 MMOL/L (98-107); CREATININE SERUM 0.61 MG/DL (0.60-1.30); GFR ESTIMATED > 60; GLUCOSE 97 MG/DL (70-105); POTASSIUM 3.8 MMOL/L (3.6-5.0); SODIUM 135 MMOL/L (135-145)
--- NOTE | 2019-02-05 09:28 | Physical Therapy Daily Note ---
PT Daily Note-Current Subjective Patient agrees to PT. She reports she is going home tomorrow. Pain Numeric Pain Scale: 0-No Pain Location: No Pain Reported Mental Status Patient Orientation: Normal For Age Transfers Therapy Code Descriptions/Definitions Functional [place] Measure: 0=Not Assessed/NA 4=Minimal Assistance 1=Total Assistance 5=Supervision or Setup 2=Maximal Assistance 6=Modified [place] 3=Moderate Assistance 7=Complete [place] Therapy Quality Codes: 6 Independent with activity with or without an assistive device 5 Patient requires set up or clean up by helper. Patient completes activity by themselves 4 Supervision or touching assist (CGA). [place] provide cues , steadying assist 3 The helper provides less than half the effort to complete the activity 2 The helper provides more than half the effort to complete the activity 1 Dependent. The helper does all the effort to complete an activity 7 Patient refused to complete or attempt activity 9 The patient did not perform the activity before the current illness or injury 88 Not attempted due to Medical conditions or safety concerns Transfers (B, C, W/C) (FIM): 6 Scootin Rollin Roll Left to Right (QC): 6 Supine to/from Sit: 6 Sit to/from Stand: 6 Sit to Lying (QC): 6 Sit to Stand (QC): 6 Chair/Ahm-up-Qcktq Xfer(QC): 6 Bed to/from Chair: 6 Car Transfer (QC): 6 Weight Bearing Right Lower Extremity: Right Weight Bearing/Tolerated Left Lower Extremity: Left Weight Bearing/Tolerated Gait Training Does the Patient Walk?: Yes Gait (FIM): 6 Distance (FIM): 3=150 ft Distance: 550' Walk 10 feet (QC): 6 Walk 50 ft with 2 Turns(QC): 6 Walk 150 ft (QC): 6 Walking 10ft/uneven surface-QC: 6 (on carpet) Gait Level of Assist: 6 Gait Assistive Device: FWW steady, functional gait sequence Assessment Patient is currently at [facility] [place] with all gross motor skills and will benefit from home health upon dismissal to home. PT Snf Goals Payroll And Benefits Analyst Goals PT Snf Goals Time Frame: Feb 10, 2019 Transfers (B,C,W/C) (FIM): 6 (met 02/05/19) Sit to Lying (QC): 6 (met 02/05/19) Lying-Sitting on Side/Bed(QC): 6 (met 02/05/19) Sit to Stand (QC): 6 (met 02/05/19) Rollin (met 02/05/19) Roll Left to Right (QC): 6 (met 02/05/19) Chair/Owm-cj-Ihdqo Xfer(QC): 6 (met 02/05/19) Car Transfer (QC): 6 (met 02/05/19) Does the Patient Walk: Yes Gait (FIM): 6 (met 02/05/19) Gait distance (FIM): 3=150 ft Distance: 350' Walk 10 feet (QC): 6 (met 02/05/19) Walk 10ft-Uneven Surface(QC): 6 (02/05/19) Walk 50ft with 2 Turns (QC): 6 (met 02/05/19) Walk 150 ft (QC): 6 (met 02/05/19) Gait Level of Assist: 6 (met 02/05/19) Gait Assistive Device: FWW PT Plan Treatment/Plan Treatment Plan: Continue Plan of Care Treatment Plan: Bed Mobility, Education, Functional Activity Syl, Functional Strength, Gait, Safety, Therapeutic Exercise, Transfers Treatment Duration: Feb 10, 2019 Frequency: 6 times per week Estimated Hrs Per Day: .25 hour per day Patient and/or Family Agrees t: Yes Discharge Recommendations Therapy D/C Recommendations: Home w/ Family Support, Physical Therapy Home Care Time/GCodes Time In: 857 Time Out: 914 Total Billed Treatment Time: 17 Total Billed Treatment 1 visit FA 17 min ANAHI JOHNSON PT Feb 05, 2019 09:28
[2019-02-05] MEDS: ALPRAZolam 0.25 MG (XANAX) TAB PO SCH ×2 (09:48→21:30)
[2019-02-05] MEDS: lisINopril 10 MG (PRINIVIL) TABLET PO SCH (09:48)
[2019-02-05] MEDS: APIXABAN 5 MG (ELIQUIS) TABLET PO SCH ×2 (09:48→21:30)
[2019-02-05] MEDS: PANTOPRAZOLE 40 MG (PROTONIX) TAB PO SCH (09:48)
--- NOTE | 2019-02-05 11:50 | Occupational Ther Daily Note ---
OT Current Status-Daily Note Subjective Pt in bed, alert, oriented, cooperative & agree for therapy. Pt's daughter was with her. Pt states that, ' I am going home tomorrow." Pain Numeric Pain Scale: 0-No Pain Location: No Pain Reported Mental Status/Objective Patient Orientation: Person, Place, Time Therapy Code Descriptions/Definitions Functional [place] Measure: 0=Not Assessed/NA 4=Minimal Assistance 1=Total Assistance 5=Supervision or Setup 2=Maximal Assistance 6=Modified [place] 3=Moderate Assistance 7=Complete [place] Attachments: Saline Lock ADL-Treatment Pt participated in shower transfers , func. mobility & strengthening ex to BUE & safety education to prevent fall. Pt modified Independent in func. bed mobility, func. transfers sit to stand with FWW from the EOB & func. shower transfers with FWW & holding grab bar for safety purpose. Pt func ambulate with FWW with supervision of therapist 200 feet without rest periods . Increased endurance to fair +. Therapy Code Descriptions/Definitions Functional [place] Measure: 0=Not Assessed/NA 4=Minimal Assistance 1=Total Assistance 5=Supervision or Setup 2=Maximal Assistance 6=Modified [place] 3=Moderate Assistance 7=Complete [place] Therapy Quality Codes: 6 Independent with activity with or without an assistive device 5 Patient requires set up or clean up by helper. Patient completes activity by themselves 4 Supervision or touching assist (CGA). Rosalia provide cues , steadying assist 3 The helper provides less than half the effort to complete the activity 2 The helper provides more than half the effort to complete the activity 1 Dependent. The helper does all the effort to complete an activity 7 Patient refused to complete or attempt activity 9 The patient did not perform the activity before the current illness or injury 88 Not attempted due to Medical conditions or safety concerns Eating (FIM): 6 Eating (QC): 6 Grooming (FIM): 6 Oral Hygiene (QC): 6 Bathing (FIM): 6 Bathing Location: L Arm, R Arm, L Upper Leg, R Upper Leg, L Lower Leg ( including foot), R Lower Leg (including foot), Chest, Abdomen, Buttocks, Perineal Area Shower/Bathe Self (QC): 6 Upper Body (FIM): 6 Upper Body Dressing (QC): 6 Lower Body Dressing (FIM): 6 Lower Body Dressing (QC): 6 On/Off Footwear (QC): 6 Toileting (FIM): 6 Toileting Hygiene (QC): 6 Transfers (B, C, W/C) (FIM): 6 Toilet/Commode Transfer (FIM): 6 Toilet Transfer (QC): 6 Tub Transfer(FIM): 0 Shower Transfer(FIM): 6 Education OT Patient Education: Correct positioning Teaching Recipient: Patient Teaching Methods: Demonstration Response to Teaching: Verbalize Understanding OT Short Term Goals Short Term Goals Time Frame: Feb 15, 2019 Additional Short Term Goals: 1-Demonstrate ADL Tasks, 2-Verbalize Understanding , 3-ImproveStrength/Syl 1=Demonstrate adherence to instructed precautions during ADL tasks. 2=Patient will verbalize/demonstrate understanding of assistive devices/ modifications for ADL. 3=Patient will improve strength/tolerance for activity to enable patient to perform ADL's. OT Alf Goals Bell Cleaner Goals Time Frame: Mar 01, 2019 Eating (FIM): 6 Eating (QC): 6 Groomin Oral Hygiene (QC): 5 Bathing(FIM): 5 Bathing Location: L Arm, R Arm, L Upper Leg, R Upper Leg, L Lower Leg ( including foot), R Lower Leg (including foot), Chest, Abdomen, Buttocks, Perineal Area Shower/Bathe Self (QC): 5 Upper Body Dressing(FIM): 6 Upper Body Dressing (QC): 5 Lower Body Dressing(FIM): 5 Lower Body Dressing (QC): 5 On/Off Footwear (QC): 5 Toileting(FIM): 6 Toileting Hygiene (QC): 5 Transfers (B,C,W/C) (FIM): 6 Toilet/Commode Transfer(FIM): 6 Toilet/Commode Transfer (QC): 5 Tub Transfer(FIM): 0 Shower Transfer(FIM): 6 Additional Goals: 1-Demonstrate ADL Tasks, 2-Verbalize Understanding, 3- ImproveStrength/Syl 1=Demonstrate adherence to instructed precautions during ADL tasks. 2=Patient will verbalize/demonstrate understanding of assistive devices/ modifications for ADL. 3=Patient will improve strength/tolerance for activity to enable patient to perform ADL's. OT Education/Plan Problem List/Assessment Assessment: Decreased Activ Tolerance, Decreased Safety Aware, Decreased UE Strength, Dependent Transfers, Impaired Bed Mobility, Impaired Funct Balance, Impaired Self-Care Skills Discharge Recommendations Plan/Recommendations: Continue POC Therapy D/C Recommendations: Home w/ Family Support Equpiment Recommendations-D/C: Extended Bath Bench, Extended Shower Sprayer, Hand Tube Winder Patient/Family Goals To return home with family members Independently with AD. Treatment Plan/Plan of Care Treatment,Training & Education: Yes Patient would benefit from OT for education, treatment and training to promote independence in ADL's, mobility, safety and/or upper extremity function for ADL' s. Plan of Care: ADL Retraining, Caregiver Training, Functional Mobility, UE Funct Exercise/Act, UE Neuromus Re-Ed/Coord Treatment Duration: Mar 01, 2019 Frequency: 5 times per week Estimated Hrs Per Day: .5 hour per day Agreement: Yes Rehab Potential: Good Time/GCodes Start Time: 09:20 Stop Time: 09:48 Total Time Billed (hr/min): 28 Billed Treatment Time 1, FA 16 min., Ex 12 min. Total 28 minutes. MEENA ROSE OT Feb 05, 2019 11:50
[2019-02-05] MEDS: NS IV 1000 ML 1,000 ML IV SCH (15:14)
[2019-02-05 15:39] VITALS: BP 144/83
[2019-02-05 17:54] VITALS: BP 134/68
[2019-02-05] MEDS: MELATONIN 3 MG TABLET PO SCH (21:30)
[2019-02-06 05:42] VITALS: BP 146/81
[2019-02-06] MEDS: NS IV 1000 ML 1,000 ML IV SCH (07:49)
--- NOTE | 2019-02-06 07:54 | Progress Note (SOAP) ---
Subjective Time Seen by a Provider: 07:51 Subjective/Events-last exam Patient feeling much better. Patient to be discharged today. Patient wants to wait a day before quelling home health. Patient's daughter will be with her. Told to call tomorrow if needs home health care Objective Exam Vital Signs Date Time Temp Pulse Resp B/P (MAP) Pulse Ox O2 Delivery O2 Flow Rate FiO2 02/06/19 05:42 97.9 73 18 146/81 (102) 98 Room Air 02/05/19 21:00 Room Air 02/05/19 17:54 97.4 66 16 134/68 (90) 98 Room Air 02/05/19 15:39 97.3 90 16 144/83 (103) 94 Room Air 02/05/19 09:00 Room Air I & O 02/06/19 07:00 Intake Total 2450 ml Balance 2450 ml Capillary Refill : General Appearance: No Apparent Distress, Thin HEENT: Normal ENT Inspection Neck: Normal Inspection Respiratory: No Accessory Muscle Use, No Respiratory Distress Cardiovascular: No Murmur, Irregularly Irregular Gastrointestinal: non tender, soft Results Lab Laboratory Tests 02/05/19 08:00 Laboratory Tests 02/05/19 08:00: White Blood Count 8.4, Red Blood Count 3.88L, Hemoglobin 12.7, Hematocrit 38, Mean Corpuscular Volume 97, Mean Corpuscular Hemoglobin 33, Mean Corpuscular Hemoglobin Concent 34, Red Cell Distribution Width 14.1, Platelet Count 315, Mean Platelet Volume 9.5, Sodium Level 135, Potassium Level 3.8, Chloride Level 102, Carbon Dioxide Level 26, Anion Gap 7, Blood Urea Nitrogen 6L, Creatinine 0.61, Estimat Glomerular Filtration Rate > 60, BUN/Creatinine Ratio 10, Glucose Level 97, Calcium Level 8.6 Assessment/Plan Assessment/Plan Assess & Plan/Chief Complaint weakness gait problem pt. not able to take care of self. . 02/05/19. Hypertension. Weakness. Gait problem. Patient lives alone. Patient continues to improve Plan to send patient home and not fdc. . 02/06/19. Weakness. Unsteady gait. Partial small bowel obstruction. Hypertension. Atrial fibrillation. Patient to be discharged today. 2 office on Monday at 11 a.m. Clinical Quality Measures DVT/VTE Risk/Contraindication: Risk Factor Score Per Nursin LORE POWELL DO Feb 06, 2019 07:54
--- NOTE | 2019-02-06 08:00 | Discharge Inst-Simple/Standard ---
Discharge Inst-Standard Patient Instructions/Follow Up Plan of Care/Instructions/FU: Patient to call me tomorrow if she needs home health care. Patient to go back on lisinopril and eliquis. 2 office Monday at 11 a.m. Activity as Tolerated: Yes Discharge Diet: No Restrictions LORE POWELL DO Feb 06, 2019 08:00
[2019-02-06] MEDS: ALPRAZolam 0.25 MG (XANAX) TAB PO SCH (08:20)
[2019-02-06] MEDS: lisINopril 10 MG (PRINIVIL) TABLET PO SCH (08:20)
[2019-02-06] MEDS: PANTOPRAZOLE 40 MG (PROTONIX) TAB PO SCH (08:20)
[2019-02-06] MEDS: APIXABAN 5 MG (ELIQUIS) TABLET PO SCH (08:20)
[2019-02-06] MEDS ORDERED: LISI10TA2 PO (08:26)
[2019-02-06] MEDS ORDERED: APIX5TAB PO (08:26)
--- NOTE | 2019-02-06 10:19 | Occupational Ther Daily Note ---
OT Current Status-Daily Note Subjective Pt in bed , alert, oriented, cooperative & agree for therapy. Pain Numeric Pain Scale: 0-No Pain Location: No Pain Reported Mental Status/Objective Patient Orientation: Person, Place, Time Therapy Code Descriptions/Definitions Functional [place] Measure: 0=Not Assessed/NA 4=Minimal Assistance 1=Total Assistance 5=Supervision or Setup 2=Maximal Assistance 6=Modified [place] 3=Moderate Assistance 7=Complete [place] Attachments: Saline Lock ADL-Treatment Pt participated in sponge-bath , grooming activity, & strengthening ex to BUE . Pt wipes face, both arms , arm-pits, neck & around neck , chest & brush her hairs . Pt completed 30 reps x 2 sets x 2 lbs wt flexion/ext of both elbow & shoulders, 30 reps with red theraband & 30 reps with both hands using Hand gripper to increase hand electric serviceman & strength to participate in all self care tasks & to push up from the EOB to stand with walker. Pt met all goals & thus d/c from skilled OT to home with family. Therapy Code Descriptions/Definitions Functional [place] Measure: 0=Not Assessed/NA 4=Minimal Assistance 1=Total Assistance 5=Supervision or Setup 2=Maximal Assistance 6=Modified [place] 3=Moderate Assistance 7=Complete [place] Therapy Quality Codes: 6 Independent with activity with or without an assistive device 5 Patient requires set up or clean up by helper. Patient completes activity by themselves 4 Supervision or touching assist (CGA). Huddy provide cues , steadying assist 3 The helper provides less than half the effort to complete the activity 2 The helper provides more than half the effort to complete the activity 1 Dependent. The helper does all the effort to complete an activity 7 Patient refused to complete or attempt activity 9 The patient did not perform the activity before the current illness or injury 88 Not attempted due to Medical conditions or safety concerns Eating (FIM): 6 Eating (QC): 6 Grooming (FIM): 6 Oral Hygiene (QC): 6 Bathing (FIM): 6 Bathing Location: L Arm, R Arm, L Upper Leg, R Upper Leg, L Lower Leg ( including foot), R Lower Leg (including foot), Chest, Abdomen, Buttocks, Perineal Area Shower/Bathe Self (QC): 6 Upper Body (FIM): 6 Upper Body Dressing (QC): 6 Lower Body Dressing (FIM): 6 Lower Body Dressing (QC): 6 On/Off Footwear (QC): 6 Toileting (FIM): 6 Toileting Hygiene (QC): 6 Transfers (B, C, W/C) (FIM): 6 Toilet/Commode Transfer (FIM): 6 Toilet Transfer (QC): 6 Tub Transfer(FIM): 0 Shower Transfer(FIM): 6 Education OT Patient Education: Correct positioning Teaching Recipient: Patient Teaching Methods: Demonstration Response to Teaching: Verbalize Understanding OT Short Term Goals Short Term Goals Time Frame: Feb 15, 2019 Additional Short Term Goals: 1-Demonstrate ADL Tasks, 2-Verbalize Understanding , 3-ImproveStrength/Syl 1=Demonstrate adherence to instructed precautions during ADL tasks. 2=Patient will verbalize/demonstrate understanding of assistive devices/ modifications for ADL. 3=Patient will improve strength/tolerance for activity to enable patient to perform ADL's. OT [facility] Goals Mail Handlers Supervisor Goals Time Frame: Mar 01, 2019 Eating (FIM): 6 (6 Pt met goals.) Eating (QC): 6 (6 Pt met goals.) Groomin (6 Pt met goals.) Oral Hygiene (QC): 5 (6 Pt met goals.) Bathing(FIM): 5 (6 Pt met goals.) Bathing Location: L Arm, R Arm, L Upper Leg, R Upper Leg, L Lower Leg ( including foot), R Lower Leg (including foot), Chest, Abdomen, Buttocks, Perineal Area Shower/Bathe Self (QC): 5 (6 Pt met goals.) Upper Body Dressing(FIM): 6 (6 Pt met goals.) Upper Body Dressing (QC): 5 (6 Pt met goals.) Lower Body Dressing(FIM): 5 (6 Pt met goals.) Lower Body Dressing (QC): 5 (6 Pt met goals.) On/Off Footwear (QC): 5 (6 Pt met goals.) Toileting(FIM): 6 (6 Pt met goals.) Toileting Hygiene (QC): 5 (6 Pt met goals.) Transfers (B,C,W/C) (FIM): 6 (6 Pt met goals.) Toilet/Commode Transfer(FIM): 6 (6 Pt met goals.) Toilet/Commode Transfer (QC): 5 (6 Pt met goals.) Tub Transfer(FIM): 0 (0 Not assessed) Shower Transfer(FIM): 6 (6 Pt met goals.) Additional Goals: 1-Demonstrate ADL Tasks, 2-Verbalize Understanding, 3- ImproveStrength/Syl 1=Demonstrate adherence to instructed precautions during ADL tasks. 2=Patient will verbalize/demonstrate understanding of assistive devices/ modifications for ADL. 3=Patient will improve strength/tolerance for activity to enable patient to perform ADL's. OT Education/Plan Problem List/Assessment Assessment: Decreased Activ Tolerance, Decreased Safety Aware, Decreased UE Strength, Dependent Transfers, Impaired Bed Mobility, Impaired Funct Balance, Impaired Self-Care Skills Discharge Recommendations Plan/Recommendations: Discharge/Goals Met Equpiment Recommendations-D/C: Extended Bath Bench, Extended Shower Sprayer, Hospital Nurse Patient/Family Goals To return home with son with Mod I. with AD. Treatment Plan/Plan of Care Treatment,Training & Education: Yes Patient would benefit from OT for education, treatment and training to promote independence in ADL's, mobility, safety and/or upper extremity function for ADL' s. Plan of Care: ADL Retraining, Caregiver Training, Functional Mobility, UE Funct Exercise/Act, UE Neuromus Re-Ed/Coord Treatment Duration: Mar 01, 2019 Frequency: 5 times per week Estimated Hrs Per Day: .5 hour per day Agreement: Yes Rehab Potential: Good Time/GCodes Start Time: 08:15 Stop Time: 08:45 Total Time Billed (hr/min): 30 Billed Treatment Time 1, ADLs 14 min, Ex 16 min .Total 30 min. MEENA ROSE OT Feb 06, 2019 10:19
--- NOTE | 2019-02-06 14:05 | Therapy Team Discharge Summary ---
Therapy Discharge Summary Discharge Recommendations Date of Discharge Feb 06, 2019 at 09:33 Therapy D/C Recommendations: Home w/ Family Support Physical Therapy This patient was seen on swing bed post acute stay due to bowel obstruction. Prior to her hospital admit, she was mod indep at home and lives in an apartment attached to her son's home. Upon assessment by PT on swing bed, she was generally SBA with transfers and gait, walking with a shuffled pattern. Treatment has focused on functional strength and balance to improve her gait and transfers. At last visit, she was mod indep with gait and transfers with an improved gait pattern. It is recommended for [facility] to follow for continued therapy services. DC PT at this time from [facility] status. Occupational Therapy Decreased Activ Tolerance, Decreased Safety Aware, Decreased UE Strength, Dependent Transfers, Impaired Bed Mobility, Impaired Funct Balance, Impaired Self-Care Skills PT Upholstery Cleaner Goals Usp Goals PT Usp Goals Time Frame: Feb 10, 2019 Transfers (B,C,W/C) (FIM): 6 (met 02/05/19) Sit to Lying (QC): 6 (met 02/05/19) Lying-Sitting on Side/Bed(QC): 6 (met 02/05/19) Sit to Stand (QC): 6 (met 02/05/19) Rollin (met 02/05/19) Chair/[id number] Xfer(QC): 6 (met 02/05/19) Does the Patient Walk: Yes Gait (FIM): 6 (met 02/05/19) Gait distance (FIM): 3=150 ft Distance: 350' Walk 50ft with 2 Turns (QC): 6 (met 02/05/19) Walk 150 ft (QC): 6 (met 02/05/19) Gait Level of Assist: 6 (met 02/05/19) Gait Assistive Device: FWW goals met to a satisfactory level OT Usp Goals Upholstery Cleaner Goals Time Frame: Mar 01, 2019 Eating (FIM): 6 (6 Pt met goals.) Eating (QC): 6 (6 Pt met goals.) Groomin (6 Pt met goals.) Oral Hygiene (QC): 5 (6 Pt met goals.) Bathing(FIM): 5 (6 Pt met goals.) Bathing Location: L Arm, R Arm, L Upper Leg, R Upper Leg, L Lower Leg ( including foot), R Lower Leg (including foot), Chest, Abdomen, Buttocks, Perineal Area Upper Body Dressing(FIM): 6 (6 Pt met goals.) Lower Body Dressing(FIM): 5 (6 Pt met goals.) Toileting(FIM): 6 (6 Pt met goals.) Toileting Hygiene (QC): 5 (6 Pt met goals.) Transfers (B,C,W/C) (FIM): 6 (6 Pt met goals.) Toilet/Commode Transfer(FIM): 6 (6 Pt met goals.) Toilet/Commode Transfer (QC): 5 (6 Pt met goals.) Tub Transfer(FIM): 0 (0 Not assessed) Shower Transfer(FIM): 6 (6 Pt met goals.) Additional Goals: 1-Demonstrate ADL Tasks, 2-Verbalize Understanding, 3- ImproveStrength/Syl 1=Demonstrate adherence to instructed precautions during ADL tasks. 2=Patient will verbalize/demonstrate understanding of assistive devices/ modifications for ADL. 3=Patient will improve strength/tolerance for activity to enable patient to perform ADL's. TERESA ECKERT PT Feb 06, 2019 14:05
--- NOTE | 2019-02-07 07:23 | Discharge Summary ---
Diagnosis/Chief Complaint Date of Admission Feb 01, 2019 at 08:24 Date of Discharge Feb 06, 2019 at 09:33 Discharge Date: Feb 06, 2019 Discharge Time: 07:21 Discharge Diagnosis Specified abnormalities of gait and mobility. Weakness. Swing bed. Partial small bowel obstruction history. Hypertension. Discharge Summary Discharge Physical Examination Allergies: Coded Allergies: [place] Known Allergies (Unverified Allergy, Mild, 09/23/09) Vitals & I&Os Vital Signs Date Time Temp Pulse Resp B/P (MAP) Pulse Ox O2 Delivery O2 Flow Rate FiO2 02/06/19 09:00 Room Air 02/06/19 05:42 97.9 73 18 146/81 (102) 98 Hospital Course Patient hospital did better. Patient considering home health but wants to wait to see how she does at home. She is getting around with a walker Labs (last 24 hrs) Laboratory Tests 02/05/19 08:00: White Blood Count 8.4, Red Blood Count 3.88L, Hemoglobin 12.7, Hematocrit 38, Mean Corpuscular Volume 97, Mean Corpuscular Hemoglobin 33, Mean Corpuscular Hemoglobin Concent 34, Red Cell Distribution Width 14.1, Platelet Count 315, Mean Platelet Volume 9.5, Sodium Level 135, Potassium Level 3.8, Chloride Level 102, Carbon Dioxide Level 26, Anion Gap 7, Blood Urea Nitrogen 6L, Creatinine 0.61, Estimat Glomerular Filtration Rate > 60, BUN/Creatinine Ratio 10, Glucose Level 97, Calcium Level 8.6 Laboratory Tests 02/05/19 08:00 Pending Labs Laboratory Tests 02/05/19 08:00: White Blood Count 8.4, Red Blood Count 3.88, Hemoglobin 12.7, Hematocrit 38, Mean Corpuscular Volume 97, Mean Corpuscular Hemoglobin 33, Mean Corpuscular Hemoglobin Concent 34, Red Cell Distribution Width 14.1, Platelet Count 315, Mean Platelet Volume 9.5, Sodium Level 135, Potassium Level 3.8, Chloride Level 102, Carbon Dioxide Level 26, Anion Gap 7, Blood Urea Nitrogen 6, Creatinine 0.61, Estimat Glomerular Filtration Rate > 60, BUN/Creatinine Ratio 10, Glucose Level 97, Calcium Level 8.6 Discharge Home Medications: Active Scripts Active Eliquis (Apixaban) 5 Mg Tablet 5 Mg PO BID 30 Days Lisinopril 10 Mg Tablet 10 Mg PO DAILY 30 Days Reported Benadryl (Diphenhydramine HCl) 25 Mg Capsule 25 Mg PO HS PRN Omeprazole 20 Mg Tablet.dr 20 Mg PO DAILY Hydrocortisone 453.6 Gm Cream..g. TOP BID PRN Melatonin 5 Mg Tablet 5 Mg PO 2200 Fiber-Tabs (Calcium Polycarbophil) 625 Mg Tablet 2 Tab PO DAILY Aleve (Naproxen Sodium) 220 Mg Tablet 220 Mg PO DAILY Iron (Ferrous Sulfate) 325 Mg Tablet 325 Mg PO 1400 Tylenol Extra Strength (Acetaminophen) 500 Mg Tablet 1,000 Mg PO HS Tylenol Extra Strength (Acetaminophen) 500 Mg Tablet 500 Mg PO 1400 Metoprolol Succinate 25 Mg Tab.er.24h 12.5 Mg PO BID TAKES 1/2 (25MG) TABLET Alprazolam 0.25 Mg Tablet 0.25 Mg PO BID Melatonin 3 Mg Tablet 3 Mg PO 1900 Instructions to patient/family Please see electronic discharge instructions given to patient. Clinical Quality Measures DVT/VTE Risk/Contraindication: Risk Factor Score Per Nursin LORE POWELL DO Feb 07, 2019 07:23
--- NOTE | 2019-02-07 08:11 | Therapy Team Discharge Summary ---
Therapy Discharge Summary Discharge Recommendations Date of Discharge Feb 06, 2019 at 09:33 Therapy D/C Recommendations: Home w/ Family Support Occupational Therapy Decreased Activ Tolerance, Decreased Safety Aware, Decreased UE Strength, Dependent Transfers, Impaired Bed Mobility, Impaired Funct Balance, Impaired Self-Care Skills PT Belly Roller Goals Belly Roller Goals PT Skilled Nursing Goals Time Frame: Feb 10, 2019 Transfers (B,C,W/C) (FIM): 6 (met 02/05/19) Sit to Lying (QC): 6 (met 02/05/19) Lying-Sitting on Side/Bed(QC): 6 (met 02/05/19) Sit to Stand (QC): 6 (met 02/05/19) Rollin (met 02/05/19) Chair/[id number] Xfer(QC): 6 (met 02/05/19) Does the Patient Walk: Yes Gait (FIM): 6 (met 02/05/19) Gait distance (FIM): 3=150 ft Distance: 350' Walk 50ft with 2 Turns (QC): 6 (met 02/05/19) Walk 150 ft (QC): 6 (met 02/05/19) Gait Level of Assist: 6 (met 02/05/19) Gait Assistive Device: FWW OT Belly Roller Goals Belly Roller Goals Time Frame: Mar 01, 2019 Eating (FIM): 6 (6 Pt met goals.) Eating (QC): 6 (6 Pt met goals.) Groomin (6 Pt met goals.) Oral Hygiene (QC): 5 (6 Pt met goals.) Bathing(FIM): 5 (6 Pt met goals.) Bathing Location: L Arm, R Arm, L Upper Leg, R Upper Leg, L Lower Leg ( including foot), R Lower Leg (including foot), Chest, Abdomen, Buttocks, Perineal Area Upper Body Dressing(FIM): 6 (6 Pt met goals.) Lower Body Dressing(FIM): 5 (6 Pt met goals.) Toileting(FIM): 6 (6 Pt met goals.) Toileting Hygiene (QC): 5 (6 Pt met goals.) Transfers (B,C,W/C) (FIM): 6 (6 Pt met goals.) Toilet/Commode Transfer(FIM): 6 (6 Pt met goals.) Toilet/Commode Transfer (QC): 5 (6 Pt met goals.) Tub Transfer(FIM): 0 (0 Not assessed) Shower Transfer(FIM): 6 (6 Pt met goals.) Additional Goals: 1-Demonstrate ADL Tasks, 2-Verbalize Understanding, 3- ImproveStrength/Syl 1=Demonstrate adherence to instructed precautions during ADL tasks. 2=Patient will verbalize/demonstrate understanding of assistive devices/ modifications for ADL. 3=Patient will improve strength/tolerance for activity to enable patient to perform ADL's. MEENA ROSE OT Feb 07, 2019 08:11
== END 2019-02-06 09:33 | disposition home health service (06) | DRG 948 ==
LOC: 4TH 08:24
PROVIDERS: ADMIT Family Medicine; ATTEND Family Medicine
DX: R53.1 Weakness (principal); R26.81 Unsteadiness on feet; I10 Essential (primary) hypertension; I48.91 Unspecified atrial fibrillation; Z87.19 Personal history of other diseases of the digestive system
CPT/HCPCS: 36415; 80048; 85027

== ENCOUNTER → 2019-09-09 | Outpatient (CLI) | payer MEDICAID, MEDICARE ==
[~2019-09-09] MED LIST changes: +APIX5TAB PO; +LISI10TA2 PO
--- NOTE | 2019-09-09 11:39 | Diagnostic Imaging Report ---
INDICATION: Difficulty swallowing. Procedure was performed in conjunction with speech pathology. Video fluoroscopy was performed during swallowing of barium in multiple consistencies. Patient ingested thin barium as well as applesauce, cottage cheese, ground meat and cracker consistency. Total of 1 minute and 14 seconds of fluoroscopic time was utilized. There is normal epiglottic tilt and laryngeal elevation. No vallecular or piriform sinus residue is seen. No laryngeal penetration or aspiration was observed. IMPRESSION: Unremarkable modified barium swallow. Dictated by: Dictated on workstation # [id number]
== END ==
LOC: RAD 10:04
PROVIDERS: ATTEND Family Medicine
DX: R13.10 Dysphagia, unspecified (principal)
CPT/HCPCS: 74230

== ENCOUNTER 2020-03-16 08:06 | Emergency (ER) | payer MEDICARE ==
[~2020-03-16] VITALS: Ht 167 cm; Wt 56.6 kg
[~2020-03-16 08:06] MED LIST changes: -CETI10TA20 PO; +CETI10TA21 PO; -MELA3TAB PO; +MELA3TAB39 PO; -METO-387 PO; +MTP25TSR PO
--- NOTE | 2020-03-16 08:19 | ED Fall/Injury ---
General Stated Complaint: NOSE BLEED Source: patient Exam Limitations: no limitations History of Present Illness Date Seen by Provider: March 16, 2020 Time Seen by Provider: 08:06 Initial Comments The patient presents to the ER by private conveyance with chief complaint that just prior to arrival about 45 minutes she had a fall. She said she got up went to the kitchen to get a drink of water and when she was drinking the water with her head back she became a little dizzy like she was going to pass out. She thinks she did lose consciousness. She fell tumbling over a chair knocking it over striking the table and then hitting her face on the floor. She is not sure medication she takes but her family says she takes blood thinners of some sort. She has a bloody nose and bruising on her face. She is not having any pain or else. She uses a walker at baseline. She denies shortness of breath, fever, chills, nausea, vomiting, chest pain, dysuria, diarrhea or constipation. Atrial fibrillation with history of RVR. History of TIA. Labile hypertension, poorly controlled. Anxiety, GERD Allergies and Home Medications Allergies Coded Allergies: NKANo Known Allergies (Unverified Allergy, Mild, 09/23/09) morphine (Verified Adverse Reaction, Unknown, knocks her out, 03/16/20) Home Medications Acetaminophen 500 Mg Tablet, 500 MG PO 1400, (Reported) Acetaminophen 500 Mg Tablet, 1,000 MG PO HS, (Reported) Alprazolam 0.25 Mg Tablet, 0.25 MG PO BID, (Reported) Apixaban 5 Mg Tablet, 5 MG PO BID Prescribed by: LORE POWELL on 02/06/19825 Calcium Polycarbophil 625 Mg Tablet, 2 TAB PO DAILY, (Reported) Diphenhydramine HCl 25 Mg Capsule, 25 MG PO HS PRN for ITCHING, (Reported) Ferrous Sulfate 325 Mg Tablet, 325 MG PO 1400, (Reported) Hydrocortisone 453.6 Gm Cream..g., TOP BID PRN for ITCHING, (Reported) Lisinopril 10 Mg Tablet, 10 MG PO DAILY Prescribed by: LORE POWELL on 02/06/19825 Melatonin 3 Mg Tablet, 3 MG PO 1900, (Reported) Melatonin 5 Mg Tablet, 5 MG PO 2200, (Reported) Metoprolol Succinate 25 Mg Tab.er.24h, 12.5 MG PO BID, (Reported) TAKES 1/2 (25MG) TABLET Naproxen Sodium 220 Mg Tablet, 220 MG PO DAILY, (Reported) Omeprazole 20 Mg Tablet.dr, 20 MG PO DAILY, (Reported) Patient Home Medication List Home Medication List Reviewed: Yes Review of Systems Review of Systems Constitutional: No chills, No diaphoresis Eyes: Denies Blindness, Denies Blurred Vision Ears, Nose, Mouth, Throat: denies ear pain, denies ear discharge; nose pain, epistaxis; denies mouth pain, denies loose teeth Respiratory: No cough, No short of breath Cardiovascular: No chest pain, No edema Gastrointestinal: No abdominal pain, No constipation Genitourinary: No discharge, No dysuria Musculoskeletal: No back pain, No joint pain Skin: see HPI Past Mhmpvkb-Dmcbin-Iyefja Hx Patient Social History Alcohol Use: Denies Use Recreational Drug Use: No Smoking Status: Never a Smoker Recent Foreign Travel: No Contact w/Someone Who Travel: No Recent Hopitalizations: Yes (CYST/ABSCESS REMOVAL 08/2016) Seasonal Allergies Seasonal Allergies: No Past Medical History Surgeries: Yes (abscess treatment) Eye Surgery, Tonsillectomy Respiratory: No Cardiac: Yes Palpitations Neurological: No 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 Disorders: No Genitourinary: No Gastrointestinal: Yes Abdominal Hernia Musculoskeletal: No Arthritis Endocrine: No HEENT: Yes Cataract Cancer: No Psychosocial: No Integumentary: No Blood Disorders: No Adverse Reaction/Blood Tranf: No Family Medical History Diabetes mellitus 20 MOTHER No Pertinent Family Hx Physical Exam Vital Signs Vital Signs - First Documented Capillary Refill : Height, Weight, BMI Height: 5'5.00" Weight: 129lbs. 8.0oz. 58.399492gl; 21.6 BMI Method:Stated General Appearance: WD/WN, mild distress HEENT: PERRL/EOMI, TMs normal (negative for hemotympanum or Yen sign), pharynx normal, other (ecchymoses under the right thigh as well as swelling of soft tissue and superficial skin tear over the bridge of the nose. Minor epistaxis.) Neck: non-tender, full range of motion Cardiovascular: normal peripheral pulses, regular rate, rhythm, no edema Respiratory: lungs clear, normal breath sounds, no respiratory distress, no accessory muscle use Peripheral Pulses: 2+ Dorsalis Pedis (R), 2+ Left Dors-Pedis (L) Gastrointestinal: normal bowel sounds, non tender, soft Extremities: normal range of motion, non-tender, normal inspection, normal capillary refill Neurologic/Psychiatric: alert, normal mood/affect, oriented x 3 Skin: ecchymosis (bilateral face), other (superficial skin tear on the bridge of nose) Mc Coma Score Best Eye Response: (4) Open Spontaneously Best Verbal Response: (5) Oriented Best Motor Response: (6) Obeys Commands Mc Total: 15 Progress/Results/Core Measures Results/Orders Lab Results Laboratory Tests Test 03/16/20 08:15 03/16/20 09:41 Range/Units White Blood Count 5.6 4.3-11.0 10^3/uL Red Blood Count 4.37 4.35-5.85 10^6/uL Hemoglobin 14.5 11.5-16.0 G/DL Hematocrit 42 35-52 % Mean Corpuscular Volume 97 80-99 FL Mean Corpuscular Hemoglobin 33 25-34 PG Mean Corpuscular Hemoglobin Concent 34 32-36 G/DL Red Cell Distribution Width 13.7 10.0-14.5 % Platelet Count 258 130-400 10^3/uL Mean Platelet Volume 9.1 7.4-10.4 FL Neutrophils (%) (Auto) 61 42-75 % Lymphocytes (%) (Auto) 27 12-44 % Monocytes (%) (Auto) 10 0-12 % Eosinophils (%) (Auto) 2 0-10 % Basophils (%) (Auto) 1 0-10 % Neutrophils # (Auto) 3.4 1.8-7.8 X 10^3 Lymphocytes # (Auto) 1.5 1.0-4.0 X 10^3 Monocytes # (Auto) 0.6 0.0-1.0 X 10^3 Eosinophils # (Auto) 0.1 0.0-0.3 10^3/uL Basophils # (Auto) 0.1 0.0-0.1 10^3/uL Sodium Level 134 L 135-145 MMOL/L Potassium Level 3.8 3.6-5.0 MMOL/L Chloride Level 99 98-107 MMOL/L Carbon Dioxide Level 24 21-32 MMOL/L Anion Gap 11 5-14 MMOL/L Blood Urea Nitrogen 9 7-18 MG/DL Creatinine 0.74 0.60-1.30 MG/DL Estimat Glomerular Filtration Rate > 60 BUN/Creatinine Ratio 12 Glucose Level 122 H 70-105 MG/DL Calcium Level 9.4 8.5-10.1 MG/DL Corrected Calcium 8.5-10.1 MG/DL Total Bilirubin 0.9 0.1-1.0 MG/DL Aspartate Amino Transf (AST/SGOT) 15 5-34 U/L Alanine Aminotransferase (ALT/SGPT) 9 0-55 U/L Alkaline Phosphatase 44 40-136 U/L Troponin I < 0.028 <0.028 NG/ML B-Type Natriuretic Peptide 54.5 <100.0 PG/ML Total Protein 7.2 6.4-8.2 GM/DL Albumin 4.6 H 3.2-4.5 GM/DL Urine Color YELLOW Urine Clarity CLEAR Urine pH 7.5 5-9 Urine Specific [place] 1.015 L 1.016-1.022 Urine Protein NEGATIVE NEGATIVE Urine Glucose (UA) NEGATIVE NEGATIVE Urine Ketones NEGATIVE NEGATIVE Urine Nitrite NEGATIVE NEGATIVE Urine Bilirubin NEGATIVE NEGATIVE Urine Urobilinogen 0.2 < = 1.0 MG/DL Urine Leukocyte Esterase 2+ H NEGATIVE Urine RBC (Auto) TRACE-L NEGATIVE Urine RBC NONE /HPF Urine WBC 5-10 H /HPF Urine Crystals NONE /LPF Urine Bacteria LARGE H /HPF Urine Casts NONE /LPF Urine Mucus NEGATIVE /LPF Urine Culture Indicated YES My Orders Orders - BAY NATARAJAN Cbc With Automated Diff (03/16/20 08:10) Comprehensive Metabolic Panel (03/16/20 08:10) Troponin I (03/16/20 08:10) BNP (03/16/20 08:10) Ua Culture If Indicated (03/16/20 08:10) Continuous Ekg Monitoring (03/16/20 08:10) Ekg Tracing (03/16/20 08:10) Ct Head/Face/Cervical Wo (03/16/20 08:10) Oxymetazoline 0.05% Nasal [place] (Afrin 0. (03/16/20 09:00) Chest 1 View, Ap/Pa Only (03/16/20 08:10) Orthostatic Vital Signs (Adult (03/16/20 08:13) Ed Iv/Invasive Line Start (03/16/20 09:50) Ns Iv 1000 Ml (Sodium Chloride 0.9%) (03/16/20 09:50) Urine Culture (03/16/20 09:41) Ceftriaxone For Iv Use (Rocephin For I (03/16/20 10:15) Vital Signs/I&O 03/16/20 03/16/20 03/16/20 08:06 08:06 09:30 Temp 36.0 36.0 36.0 Pulse 84 84 80 89 115 Resp 18 18 B/P (MAP) 174/104 (127) 174/104 (127) 167/106 (126) 175/105 (128) 125/90 (102) Pulse Ox 95 95 Progress Progress Note #1: Time: 08:20 Progress Note Plan to get a CT of the head neck and face. We'll give her some oxymetazoline and direct pressure for her nosebleed. No significant that under control he can do orthostatic vital signs. We'll check labs looking for anemia as as well as troponin and BNP and EKG to help us sort out source of her syncopal episode. The patient is on Eliquis. Echocardiogram by Dr. Baron 2017 demonstrating an EF of 65-70%. Wall thickness and cavity size is normal. Progress Note #2: Time: 09:05 Progress Note Eidson syncope rule: 1point. Medium risk; 3.1% risk of 30-day serious adverse event. Orthostatics are significantly positive. We have elected to give her a liter of normal saline and reevaluate. Progress Note #3: Time: 10:08 Progress Note Patient is still getting her IV fluids and we'll allow her to finish. She has a UTI so a gram or Rocephin was added. We'll set her up for outpatient treatment and follow-up the next 2 weeks with primary care to discuss her medications. Initial ECG Impression Date: March 16, 2020 Initial ECG Impression Time: 08:15 Initial ECG Rate: 87 Initial ECG Rhythm: Normal Sinus Initial ECG Intervals: Normal Initial ECG Impression: Normal Initial ECG Comparisson: Unchanged Comment Normal sinus rhythm without clinically relevant ST elevation or depression. Diagnostic Imaging Diagonstic Imaging: Xray Plain Films/CT/US/NM/MRI: chest (1v) Comments NAME: MARY GALLEGO Chen [facility] REC#: [id number] PT STATUS: REG ER : 1930 PHYSICIAN: BAY NATARAJAN MD ADMIT DATE: 03/16/20/ER Draft Date of Exam:03/16/20 CHEST 1 VIEW, AP/PA ONLY INDICATION: Fall. Study correlated with abdominal CT 01/23/2019 as well as correlated with the abdominal radiographs of 01/31/2019. FINDINGS: A large left basilar hernia unchanged. There is some resultant passive atelectasis of adjacent left lower lobe this is chronic. The lungs otherwise clear. No effusion or pneumothorax. 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 No other significant finding. Dictated on workstation # [id number] Dict: 03/16/20 0851 Trans: 03/16/20 0854 [id number] Interpreted by: DEANN CHERRY Electronically signed by: Reviewed: Reviewed by Me Diagonstic Imaging: CT (without IV contrast) Plain Films/CT/US/NM/MRI: facial bones, c-spine, head Comments NAME: MARY GALLEGO Chen [facility] REC#: [id number] PT STATUS: REG ER : 1930 PHYSICIAN: BAY NATARAJAN MD ADMIT DATE: 03/16/20/ER Draft Date of Exam:03/16/20 CT HEAD/FACE/CERVICAL WO PROCEDURE: CT head, face, and cervical spine without contrast. TECHNIQUE: Multiple contiguous axial images were obtained through the head, neck, and facial bones without the use of intravenous contrast. Sagittal and coronal reformations through the cervical spine and facial bones were also performed. Auto Exposure Controls were utilized during the CT exam to meet ALARA standards for radiation dose reduction. INDICATION: Fall with facial lacerations and orbital swelling. COMPARISON: Head CT compared to 02/11/2018. Cervical imaging compared to 02/11/2018. No prior dedicated facial imaging. FINDINGS: CT HEAD: Cerebral cortical atrophy and periventricular white matter small vessel sequelae are chronic findings showing no appreciable interval change. No acute extra-axial fluid collection or intracerebral hemorrhage. There is no calvarial fracture deformity. The mastoid air cells and middle ear cavities are clear. There is no pneumocephalus. CT CERVICAL SPINE: Slight grade 1 anterolisthesis of C7 on T1 is stable. Slight grade 1 degenerative retrolisthesis of C5 on C6 is also stable. The alignment is unchanged from the comparison. No facet joint dislocation. No cervical fracture or paravertebral hemorrhage. Vascular calcifications of the carotids are chronic. The thoracic inlet and visualized pulmonary apices are unremarkable. CT FACIAL BONES: There are comminuted fractures of the nasal bones bilaterally. No traumatic deformity or acute pathology to the nasal septum. The anterior and posterior li of the frontal sinuses are intact. There is no frontal sinus blood. The sphenoid sinuses are clear. The pterygoid plates and hard palate appear intact. The mandible and bony temporomandibular joints appear nonacute. The zygomatic arches are intact. There is blood in the right maxillary sinus. There is bilateral preseptal periorbital soft tissue swelling. No post septal or retrobulbar hematoma. No deformity to the globes. No proptosis. The extraocular muscles appear intact. The left maxillary sinus shows slight lobulated mucous membrane thickening, chronic. No evidence for left maxillary sinus blood. The orbital floors are intact. The medial and lateral orbital li and orbital rims are intact. While there is a considerable amount of blood nearly occluding the right maxillary sinus, I am unable to identify a right maxillary sinus wall fracture or deformity. There is considerable right-sided infraorbital premaxillary soft tissue swelling as well as scattered areas of gas overlying the soft tissues of the right maxilla. IMPRESSION: CT HEAD: Stable chronic senescent findings with no calvarial fracture or intracerebral hemorrhage. CT CERVICAL SPINE: Stable multilevel grade 1 degenerative listheses without cervical fracture or traumatic malalignment. CT FACIAL BONES: 1. Comminuted nasal bone fractures without significant angulation or displacement. Extensive right maxillary hemo-sinus but I am unable to detect a suspected fracture of the right maxillary sinus li. 2. The remaining facial structures are intact. There is extensive facial and periorbital soft tissue swelling but no post septal or retrobulbar hematoma. Dictated on workstation # [id number] Dict: 03/16/20 0853 Trans: 03/16/20 0907 [id number] Interpreted by: DEANN CHERRY Electronically signed by: Reviewed: Reviewed by Me Departure Impression Primary Impression: Fall Qualified Codes: W19.XXXA - Unspecified fall, initial encounter Additional Impressions: Nasal bone fractures Qualified Codes: S02.2XXA - Fracture of nasal bones, initial encounter for closed fracture Skin tear Acute anterior epistaxis Syncope Qualified Codes: R55 - Syncope and collapse Ecchymosis UTI (urinary tract infection) Qualified Codes: N30.00 - Acute cystitis without hematuria Disposition: 01 HOME, SELF-CARE Condition: Stable Departure-Patient Inst. Decision time for Depature: 10:08 Referrals: LORE POWELL DO (PCP) Primary Care Physician Patient Instructions: Nose Fracture (DC), Syncope (Fainting), Urinary Tract Infections in Adults Add. Discharge Instructions: Plan to follow up with your software integrator in the next 1-2 weeks. Discuss possible reasons for your passing out spell. Discuss if your medications need adjusting. Drink plenty of fluids. 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 Remember to take your blood pressure medications when you get home. Keep your wounds clean with regular soap and water. The Steri-Strips will fall off on their own over the next several days. If you get a nose bleed apply 4 puffs of the oxymetazoline spray up each nostril and then hold pressure to your nose for 40 minutes while sitting up. If you cannot get the nosebleed to stop then please return to the ER. Tylenol 1000 mg every 8 hours as needed for pain. Ice packs applied your face as often as necessary for the first 1-2 days for swelling and pain. Your neck will become more stiff over the next day or so. Use heating pads and topical muscle rubs liberally. Scripts Cephalexin (Keflex) 500 Mg Capsule 500 MG PO BID for 5 Days, #10 CAP 0 Refills Prov: BAY NATARAJAN 03/16/20 BAY NATARAJAN March 16, 2020 08:19
[2020-03-16 08:23] LABS: BASOPHILS # (AUTO) 0.1 10^3/uL (0.0-0.1); BASOPHILS % (AUTO) 1 % (0-10); EOSINOPHILS # (AUTO) 0.1 10^3/uL (0.0-0.3); EOSINOPHILS % (AUTO) 2 % (0-10); HEMATOCRIT 42 % (35-52); HEMOGLOBIN 14.5 G/DL (11.5-16.0); LYMPHOCYTES # (AUTO) 1.5 X 10^3 (1.0-4.0); LYMPHOCYTES % (AUTO) 27 % (12-44); MEAN CORPUSCULAR HEMOGLOBIN 33 PG (25-34); MEAN CORPUSCULAR HGB CONC 34 G/DL (32-36); MEAN CORPUSCULAR VOLUME 97 FL (80-99); MEAN PLATELET VOLUME 9.1 FL (7.4-10.4); MONOCYTES # (AUTO) 0.6 X 10^3 (0.0-1.0); MONOCYTES % (AUTO) 10 % (0-12); NEUTROPHILS # (AUTO) 3.4 X 10^3 (1.8-7.8); NEUTROPHILS % (AUTO) 61 % (42-75); PLATELET COUNT 258 10^3/uL (130-400); RED CELL DISTRIBUTION WIDTH 13.7 % (10.0-14.5); WHITE BLOOD COUNT 5.6 10^3/uL (4.3-11.0)
[2020-03-16 08:43] LABS: ALANINE AMINOTRANSFERASE 9 U/L (0-55); ALBUMIN 4.6 GM/DL (3.2-4.5); ALKALINE PHOSPHATASE 44 U/L (40-136); BILIRUBIN,TOTAL 0.9 MG/DL (0.1-1.0); BUN/CREATININE RATIO 12; CALCIUM 9.4 MG/DL (8.5-10.1); CARBON DIOXIDE 24 MMOL/L (21-32); CHLORIDE 99 MMOL/L (98-107); CREATININE SERUM 0.74 MG/DL (0.60-1.30); GFR ESTIMATED > 60; GLUCOSE 122 MG/DL (70-105); POTASSIUM 3.8 MMOL/L (3.6-5.0); SODIUM 134 MMOL/L (135-145); TOTAL PROTEIN 7.2 GM/DL (6.4-8.2)
--- NOTE | 2020-03-16 08:54 | Diagnostic Imaging Report ---
INDICATION: Fall. Study correlated with abdominal CT 01/23/2019 as well as correlated with the abdominal radiographs of 01/31/2019. FINDINGS: A large left basilar hernia unchanged. There is some resultant passive atelectasis of adjacent left lower lobe this is chronic. The lungs otherwise clear. No effusion or pneumothorax. 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 No other significant finding. Dictated by: Dictated on workstation # [id number]
[2020-03-16] MEDS ORDERED: OXYMETAZOLINE (AFRIN) 0.05% NA 30 ML BTL SCH (09:00)
--- NOTE | 2020-03-16 09:08 | Diagnostic Imaging Report ---
PROCEDURE: CT head, face, and cervical spine without contrast. TECHNIQUE: Multiple contiguous axial images were obtained through the head, neck, and facial bones without the use of intravenous contrast. Sagittal and coronal reformations through the cervical spine and facial bones were also performed. Auto Exposure Controls were utilized during the CT exam to meet ALARA standards for radiation dose reduction. INDICATION: Fall with facial lacerations and orbital swelling. COMPARISON: Head CT compared to 02/11/2018. Cervical imaging compared to 02/11/2018. No prior dedicated facial imaging. FINDINGS: CT HEAD: Cerebral cortical atrophy and periventricular white matter small vessel sequelae are chronic findings showing no appreciable interval change. No acute extra-axial fluid collection or intracerebral hemorrhage. There is no calvarial fracture deformity. The mastoid air cells and middle ear cavities are clear. There is no pneumocephalus. CT CERVICAL SPINE: Slight grade 1 anterolisthesis of C7 on T1 is stable. Slight grade 1 degenerative retrolisthesis of C5 on C6 is also stable. The alignment is unchanged from the comparison. No facet joint dislocation. No cervical fracture or paravertebral hemorrhage. Vascular calcifications of the carotids are chronic. The thoracic inlet and visualized pulmonary apices are unremarkable. CT FACIAL BONES: There are comminuted fractures of the nasal bones bilaterally. No traumatic deformity or acute pathology to the nasal septum. The anterior and posterior li of the frontal sinuses are intact. There is no frontal sinus blood. The sphenoid sinuses are clear. The pterygoid plates and hard palate appear intact. The mandible and bony temporomandibular joints appear nonacute. The zygomatic arches are intact. There is blood in the right maxillary sinus. There is bilateral preseptal periorbital soft tissue swelling. No post septal or retrobulbar hematoma. No deformity to the globes. No proptosis. The extraocular muscles appear intact. The left maxillary sinus shows slight lobulated mucous membrane thickening, chronic. No evidence for left maxillary sinus blood. The orbital floors are intact. The medial and lateral orbital li and orbital rims are intact. While there is a considerable amount of blood nearly occluding the right maxillary sinus, I am unable to identify a right maxillary sinus wall fracture or deformity. There is considerable right-sided infraorbital premaxillary soft tissue swelling as well as scattered areas of gas overlying the soft tissues of the right maxilla. IMPRESSION: CT HEAD: Stable chronic senescent findings with no calvarial fracture or intracerebral hemorrhage. CT CERVICAL SPINE: Stable multilevel grade 1 degenerative listheses without cervical fracture or traumatic malalignment. CT FACIAL BONES: 1. Comminuted nasal bone fractures without significant angulation or displacement. Extensive right maxillary hemo-sinus but I am unable to detect a suspected fracture of the right maxillary sinus li. 2. The remaining facial structures are intact. There is extensive facial and periorbital soft tissue swelling but no post septal or retrobulbar hematoma. Dictated by: Dictated on workstation # [id number]
[2020-03-16 09:30] VITALS: BP_SYST 125; BP_SYST 167; BP_SYST 175; BP_DIAS 105; BP_DIAS 106; BP_DIAS 90
[2020-03-16] MEDS ORDERED: NS IV 1000 ML 1,000 ML IV SCH (09:50)
[2020-03-16 09:54] LABS: BILIRUBIN,URINE NEGATIVE (NEGATIVE); CLARITY,URINE CLEAR; COLOR,URINE YELLOW; GLUCOSE, URINE (UA) NEGATIVE (NEGATIVE); KETONES,URINE NEGATIVE (NEGATIVE); LEUKOCYTE ESTERASE ,URINE 2+ (NEGATIVE); NITRITE,URINE NEGATIVE (NEGATIVE); PH,URINE 7.5 (5-9); PROTEIN,URINE NEGATIVE (NEGATIVE)
[2020-03-16 10:01] LABS: BACTERIA,URINE LARGE /HPF
[2020-03-16] MEDS ORDERED: CEPH-507 PO (10:11)
[2020-03-16] MEDS ORDERED: cefTRIAXone FOR IV USE 1,000 MG in WATER (STERILE) FOR INJECTION 10 ML IV ONE (10:15)
[2020-03-16 11:21] VITALS: BP 168/93
== END 2020-03-16 11:21 | disposition home or self-care (01) ==
LOC: EDUNIT# 08:06 → ER 08:08
DX: S02.2XXA Fracture of nasal bones, initial encounter for closed fracture (principal); S01.21XA Laceration without foreign body of nose, initial encounter; N30.00 Acute cystitis without hematuria; R04.0 Epistaxis; R55 Syncope and collapse; I48.91 Unspecified atrial fibrillation; I10 Essential (primary) hypertension; F41.9 Anxiety disorder, unspecified; K21.9 Gastro-esophageal reflux disease without esophagitis; W18.39XA Other fall on same level, initial encounter; Z88.5 Allergy status to narcotic agent; Z86.73 Personal history of transient ischemic attack (TIA), and cerebral infarction without residual deficits; Z79.899 Other long term (current) drug therapy; Z79.01 Long term (current) use of anticoagulants; M19.91 Primary osteoarthritis, unspecified site
CPT/HCPCS: 36415; 70450; 70486; 71045; 72125; 80053; 81000; 83880; 84484; 85025; 87077; 87088; 93005

== ENCOUNTER 2020-04-12 05:39 | Emergency (ER) | payer MEDICARE ==
[~2020-04-12] VITALS: Ht 170 cm; Wt 61.6 kg
[~2020-04-12 05:39] MED LIST changes: +CEPH-507 PO; +CIPR500T4 PO; +ELDE1CAP PO
--- OUTSIDE RECORDS SUMMARY | 2020-04-12 05:47 | XMS REPORT | Continuity of Care Document ---
Author Organization Unknown Address Unknown Phone Unavailable Allergies Active Description Code Type Severity Reaction Onset Reported/Identified Relationship to Patient Clinical Status Yes NKANo Known Allergies NKA Miscellaneous Allergy Mild N/A 09/23/2009 Yes morphine [id number] Drug Allergy Unknown knocks her out 03/16/2020 Medications There is no data. Problems Date Dx Coded Attending Type Code Diagnosis Diagnosed By 10/12/1599 EMMA BROWNLEE, PAKO Hammer Ot E88.8 1 METABOLIC SYNDROME 10/12/1599 PAKO CARTER MD Ot L02.3 1 CUTANEOUS ABSCESS OF BUTTOCK 10/12/1599 PAKO CARTER MD Ot L03.3 17 CELLULITIS OF BUTTOCK 10/12/1599 PAKO CARTER MD Ot T81.31XA DISRUPTION OF EXTERNAL OPERATION (SURGIC 12/23/2014 Ot V76.12 12/23/2014 Ot V76.12 12/23/2014 LORE POWELL DO Ot V76.12 09/05/2016 Ot V76.12 OTH SCREEN MAMMO- MALIGN NEOPLASM OF ARISTEO 09/05/2016 MEDDER DOLORE Ot V76.12 OTH SCREEN MAMMO-MALIGN NEOPLASM OF ARISTEO 09/05/2016 GELLENDER LORE MARTÍNEZ Ot V76.12 OTH SCREEN MAMMO-MALIGN [...] Perez Ot M19.90 UNSPECIFIED OSTEOARTHRITIS, UNSPECIFIED 09/10/2016 GELLENDER DO, LORE Perez Ot B95.4 OTH STREPTOCOCCUS THE CAUSE OF DISEAS 09/10/2016 GELLENDER DO, LORE Perez Ot B95.61 METHICILLIN SUSCEP STAPH INFCT CAUSING D 09/10/2016 GELLENDER DO, LORE Perez Ot D64.9 ANEMIA, UNSPECIFIED 09/10/2016 GELLENDER DO, LORE Perez Ot E87.6 HYPOKALEMIA 09/10/2016 GELLENDER DO, LORE Perez Ot I10 ESSENTIAL (PRIMARY) HYPERTENSION 09/10/2016 GELLENDER DO, LORE Perez Ot L02.31 CUTANEOUS ABSCESS OF BUTTOCK 09/10/2016 GELLENDER DO, LORE Perez Ot L03.317 CELLULITIS OF BUTTOCK 09/10/2016 GELLENDER DO, LORE Perez Ot M19.90 UNSPECIFIED OSTEOARTHRITIS, UNSPECIFIED 09/10/2016 GELLENDER DO, LORE Perez Ot N31.9 NEUROMUSCULAR DYSFUNCTION OF BLADDER, UN 09/10/2016 GELLENDER DO, LORE Perez Ot 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, UNSPECIFIED 09/10/2016 GELLENDER DO, LORE Perez Ot R26.81 UNSTEADINESS ON FEET 09/10/2016 ANDRE DO, LORE Perez Ot R33.9 RETENTION OF URINE, UNSPECIFIED 10/20/2016 PAKO CARTER MD Ot E88.8 1 METABOLIC SYNDROME 10/20/2016 PAKO CARTER MD Ot L02.3 1 CUTANEOUS ABSCESS OF BUTTOCK 10/20/2016 PAKO CARTER MD Ot L03.3 17 CELLULITIS OF BUTTOCK 10/20/2016 PAKO CARTER MD Ot T81.31XA DISRUPTION OF EXTERNAL OPERATION (SURGIC 12/22/2016 DESTINY KASPER Ot J40 BRONCHITIS, NOT SPECIFIED ACUTE OR CH 12/22/2016 DESTINY KASPER Ot R05 COUGH 12/22/2016 Ot V76.12 OTH SCREEN MAMMO- MALIGN NEOPLASM OF ARISTEO 12/22/2016 GELLENDER DO, LORE Perez Ot V76.12 OTH SCREEN MAMMO-MALIGN NEOPLASM OF ARISTEO 12/22/2016 GELLENDER DO, LORE Perez Ot V76.12 OTH SCREEN MAMMO-MALIGN NEOPLASM OF ARISTEO 12/23/2016 DESTINY KASPERP Ot J40 BRONCHITIS, NOT SPECIFIED ACUTE OR CH 12/23/2016 DESTINY KASPERP Ot R05 COUGH 08/22/2017 GELLENDER DO, LORE Ana Ot N85.8 OTHER SPECIFIED NONINFLAMMATORY DISORDER 08/22/2017 GELLENDER DO, LORE Ana Ot N95.0 POSTMENOPAUSAL BLEEDING 09/12/2017 GELLENDER DO, LORE Ana Ot N85.8 OTHER SPECIFIED NONINFLAMMATORY DISORDER 09/12/2017 GELLENDER DO, LORE Ana Ot N95.0 POSTMENOPAUSAL BLEEDING 12/22/2017 GELLENDER DO, LORE Ana Ot N39.0 URINARY TRACT INFECTION, SITE NOT SPECIF 12/22/2017 GELLENDER DO, LORE Ana Ot N39.0 URINARY TRACT INFECTION, SITE NOT SPECIF 01/12/2018 GELLENDER DO, LORE Ana Ot R35.0 FREQUENCY OF MICTURITION 01/16/2018 GELLENDER DO, LORE Ana Ot N39.0 URINARY TRACT INFECTION, SITE NOT SPECIF 01/18/2018 GELLENDER DO, LORE Ana Ot R35.0 FREQUENCY OF MICTURITION 02/12/2018 CAVAZOS DO, JOVANI Ot I48.92 UNSPECIFIED ATRIAL FLUTTER 02/12/2018 CAVAZOS DO, JOVANI Ot K44.9 DIAPHRAGMATIC HERNIA WITHOUT OBSTRUCTION 02/12/2018 CAVAZOS DO, JOVANI Ot N39.0 URINARY TRACT INFECTION, SITE NOT SPECIF 02/12/2018 CAVAZOS DO, JOVANI Ot S92.35 4A NONDISP FX OF FIFTH METATARSAL BONE, RIG 02/12/2018 CAVAZOS DO, JOVANI Ot W19.XX XA UNSPECIFIED FALL, INITIAL ENCOUNTER 02/12/2018 CAVAZOS DO, JOVANI Ot I48.92 UNSPECIFIED ATRIAL FLUTTER 02/12/2018 CAVAZOS DO, JOVANI Ot K44.9 DIAPHRAGMATIC HERNIA WITHOUT OBSTRUCTION 02/12/2018 CAVAZOS DO, JOVANI Ot N39.0 URINARY TRACT INFECTION, SITE NOT SPECIF 02/12/2018 CAVAZOS DO, JOVANI Ot S92.35 4A NONDISP FX OF FIFTH METATARSAL BONE, RIG 02/12/2018 CAVAZOS DO, JOVANI Ot W19.XX XA UNSPECIFIED FALL, INITIAL ENCOUNTER 03/09/2018 GELLENDER DO, LORE Perez Ot S92.351A DISP FX OF FIFTH METATARSAL BONE, RIGHT 03/21/2018 MECCA FRANCIS SHAPING MACHINE TENDER Ot I08.1 RHEUMATIC DISORDERS OF BOTH MITRAL AND T 03/21/2018 MECCA FRANCIS SHAPING MACHINE TENDER Ot I48.0 PAROXYSMAL ATRIAL FIBRILLATION 03/21/2018 MECAC FRANCIS SHAPING MACHINE TENDER Ot Z79.01 SNF (CURRENT) USE OF ANTICOAGULANT 03/28/2018 GELLENDER DO, LORE Perez Ot S92.351A DISP FX OF FIFTH METATARSAL BONE, RIGHT 04/11/2018 MECCA FRANCIS SHAPING MACHINE TENDER Ot I08.1 RHEUMATIC DISORDERS OF BOTH MITRAL AND T 04/11/2018 MECCA FRANCIS SHAPING MACHINE TENDER Ot I48.0 PAROXYSMAL ATRIAL FIBRILLATION 04/11/2018 MECCA FRANCIS SHAPING MACHINE TENDER Ot Z79.01 SNF (CURRENT) USE OF ANTICOAGULANT 04/19/2018 GELLENDER DO, [...] M47.816 SPONDYLOSIS W/O MYELOPATHY OR RADICULOPA 08/02/2018 [facility] Ot R19.7 DIARRHEA, UNSPECIFIED 08/03/2018 ANDRE MARTÍNEZLORE Ot R35.0 FREQUENCY OF MICTURITION 08/10/2018 [facility] Ot M47.816 SPONDYLOSIS W/O MYELOPATHY OR RADICULOPA 08/21/2018 ANDRE MARTÍNEZLORE Ot K63.1 PERFORATION OF INTESTINE (NONTRAUMATIC) 08/21/2018 ANDRE MARTÍNEZLORE Ot V76.12 OTH SCREEN MAMMO-MALIGN NEOPLASM OF ARISTEO 08/21/2018 [facility], LORE Perez Ot V76.12 OTH SCREEN MAMMO-MALIGN NEOPLASM OF ARISTEO 08/21/2018 [facility] Ot N85.8 OTHER SPECIFIED NONINFLAMMATORY DISORDER 08/21/2018 [facility] Ot N95.0 POSTMENOPAUSAL BLEEDING 08/21/2018 [facility] Ot N39.0 URINARY TRACT INFECTION, SITE NOT SPECIF 08/21/2018 ANDRE MARTÍNEZLORE Ot R35.0 FREQUENCY OF MICTURITION 08/21/2018 MECCA FRANCIS SHAPING MACHINE TENDER Ot I08.1 RHEUMATIC DISORDERS OF BOTH MITRAL AND T 08/21/2018 MECCA FRANCIS SHAPING MACHINE TENDER Ot I48.0 PAROXYSMAL ATRIAL FIBRILLATION 08/21/2018 MECCA FRANCIS SHAPING MACHINE TENDER Ot Z79.01 SNF (CURRENT) USE OF ANTICOAGULANT 08/21/2018 ANDRE MARTÍNEZLORE Ot S92.351A DISP FX OF FIFTH METATARSAL BONE, RIGHT 08/21/2018 [facility] Ot S92.351D DISP FX OF 5TH METATARSAL BONE, R FT, 7T 08/21/2018 [facility] Ot K63.1 PERFORATION OF INTESTINE (NONTRAUMATIC) 08/21/2018 Ot R19.7 DIAR SANG, UNSPECIFIED 08/21/2018 Ot S92.351D D ISP FX OF 5TH METATARSAL BONE, R FT, 7T 08/21/2018 ANDRE MARTÍNEZLORE Ot R19.7 DIARRHEA, UNSPECIFIED 08/21/2018 [facility] Ot M47.816 SPONDYLOSIS W/O MYELOPATHY OR RADICULOPA 09/07/2018 ANDRE MARTÍNEZLORE Ot V76.12 OTH SCREEN MAMMO-MALIGN NEOPLASM OF ARISTEO 09/07/2018 ANDRE MARTÍNEZLORE Ot V76.12 OTH SCREEN MAMMO-MALIGN NEOPLASM OF ARISTEO 09/07/2018 ANDRE MARTÍNEZLORE Ot N85.8 OTHER SPECIFIED NONINFLAMMATORY DISORDER 09/07/2018 ANDRE MARTÍNEZLORE Ot N95.0 POSTMENOPAUSAL BLEEDING 09/07/2018 ANDRE MARTÍNEZLORE Ot N39.0 URINARY TRACT INFECTION, SITE NOT SPECIF 09/07/2018 ANDRE MARTÍNEZLORE Ot R35.0 FREQUENCY OF MICTURITION 09/07/2018 MECCA FRANCIS SHAPING MACHINE TENDER Ot I08.1 RHEUMATIC DISORDERS OF BOTH MITRAL AND T 09/07/2018 MECCA FRANCIS SHAPING MACHINE TENDER Ot I48.0 PAROXYSMAL ATRIAL FIBRILLATION 09/07/2018 MECCA FRANCIS SHAPING MACHINE TENDER Ot Z79.01 SNF (CURRENT) USE OF ANTICOAGULANT 09/07/2018 ANDRE MARTÍNEZLORE Ot S92.351A DISP FX OF FIFTH METATARSAL BONE, RIGHT 09/07/2018 ANDRE MARTÍNEZLORE Ot S92.351D DISP FX OF 5TH METATARSAL BONE, R FT, 7T 09/07/2018 ANDRE MARTÍNEZLORE Ot K63.1 PERFORATION OF INTESTINE (NONTRAUMATIC) 09/07/2018 Ot R19.7 DIAR SANG, UNSPECIFIED 09/07/2018 Ot S92.351D D ISP FX OF 5TH METATARSAL BONE, R FT, 7T 09/07/2018 ANDRE MARTÍNEZLORE Ot R19.7 DIARRHEA, UNSPECIFIED 09/07/2018 ANDRE MARTÍNEZLORE Ot M47.816 SPONDYLOSIS W/O MYELOPATHY OR RADICULOPA 10/01/2018 ANDRE MARTÍNEZLORE Ot M19.041 PRIMARY OSTEOARTHRITIS, RIGHT HAND 10/11/2018 ANDRE MARTÍNEZLORE Ot V76.12 OTH SCREEN MAMMO-MALIGN NEOPLASM OF ARISTEO 10/11/2018 ANDRE MARTÍNEZLORE Ot V76.12 OTH SCREEN MAMMO-MALIGN NEOPLASM OF ARISTEO 10/11/2018 ANDRE MARTÍNEZLORE Ot N85.8 OTHER SPECIFIED NONINFLAMMATORY DISORDER 10/11/2018 ANDRE MARTÍNEZLORE Ot N95.0 POSTMENOPAUSAL BLEEDING 10/11/2018 ANDRE MARTÍNEZLORE Ot N39.0 URINARY TRACT INFECTION, SITE NOT SPECIF 10/11/2018 ANDRE MARTÍNEZLORE Ot R35.0 FREQUENCY OF MICTURITION 10/11/2018 MECCA FRANCIS SHAPING MACHINE TENDER Ot I08.1 RHEUMATIC DISORDERS OF BOTH MITRAL AND T 10/11/2018 MECCA FRANCIS SHAPING MACHINE TENDER Ot I48.0 PAROXYSMAL ATRIAL FIBRILLATION 10/11/2018 MECCA FRANCISP Ot Z79.01 SNF (CURRENT) USE OF ANTICOAGULANT 10/11/2018 ANDRE MARTÍNEZLORE Ot S92.351A DISP FX OF FIFTH METATARSAL BONE, RIGHT 10/11/2018 ANDRE MARTÍNEZLORE Ot S92.351D DISP FX OF 5TH METATARSAL BONE, R FT, 7T 10/11/2018 ANDRE MARTÍNEZLORE Ot K63.1 PERFORATION OF INTESTINE (NONTRAUMATIC) 10/11/2018 Ot R19.7 DIAR SANG, UNSPECIFIED 10/11/2018 Ot S92.351D D ISP FX OF 5TH METATARSAL BONE, R FT, 7T 10/11/2018 ANDRE MARTÍNEZLORE Ot R19.7 DIARRHEA, UNSPECIFIED 10/11/2018 ANDRE MARTÍNEZLORE Ot M47.816 SPONDYLOSIS W/O MYELOPATHY OR RADICULOPA 10/11/2018 ANDRE MARTÍNEZLORE Ot M19.041 PRIMARY OSTEOARTHRITIS, RIGHT HAND 10/11/2018 MECCA FRANCISP Ot I08.1 RHEUMATIC DISORDERS OF BOTH MITRAL AND T 10/11/2018 MECCA FRANCISP Ot I48.0 PAROXYSMAL ATRIAL FIBRILLATION 10/11/2018 MECCA FRANCISP Ot Z79.01 SNF (CURRENT) USE OF ANTICOAGULANT 01/10/2019 ANDRE MARTÍNEZLORE Ot R19.7 DIARRHEA, UNSPECIFIED 01/15/2019 PAPALENDER LORE Ot R19.7 DIARRHEA, UNSPECIFIED 01/30/2019 GELLENDER LORE Ot B86 SCABIES 01/30/2019 PAPALENDER LORE Ot I10 ESSENTIAL (PRIMARY) HYPERTENSION 01/30/2019 GELLENDER DO, LORE Perez Ot K44.9 DIAPHRAGMATIC HERNIA WITHOUT OBSTRUCTION 01/30/2019 GELLENDER DO, LORE Perez Ot K56.690 OTHER PARTIAL INTESTINAL OBSTRUCTION 01/30/2019 GELLENDER DO, LORE Perez Ot M19.91 PRIMARY OSTEOARTHRITIS, UNSPECIFIED SITE 01/30/2019 GELLENDER DO, LORE Perez Ot Z90.49 ACQUIRED ABSENCE OF OTHER SPECIFIED PART 02/01/2019 GELLENDER DO, LORE Perez Ot B86 SCABIES 02/01/2019 GELLENDER DO, LORE Perez Ot F41.9 ANXIETY DISORDER, UNSPECIFIED 02/01/2019 GELLENDER DO, LORE Perez Ot I10 ESSENTIAL (PRIMARY) HYPERTENSION 02/01/2019 GELLENDER DO, LORE Perez Ot I48.1 PERSISTENT ATRIAL FIBRILLATION 02/01/2019 GELLENDER DO, LORE Perez Ot K44.9 DIAPHRAGMATIC HERNIA WITHOUT OBSTRUCTION 02/01/2019 GELLENDER DO, LORE Perez Ot K56.51 INTESTINAL ADHESIONS [BANDS], WITH PARTI 02/01/2019 GELLENDER DO, LORE Perez Ot M19.91 PRIMARY OSTEOARTHRITIS, UNSPECIFIED SITE 02/01/2019 GELLENDER DO, LORE Perez Ot R11.2 NAUSEA WITH VOMITING, UNSPECIFIED 02/01/2019 GELLENDER DO, LORE Perez Ot Z86.73 PRSNL HX OF TIA (TIA), AND CEREB INFRC W 02/01/2019 GELLENDER DO, LORE Perez Ot Z90.49 ACQUIRED ABSENCE OF OTHER SPECIFIED PART 02/06/2019 GELLENDER DO, LORE Perez Ot I10 ESSENTIAL (PRIMARY) HYPERTENSION 02/06/2019 GELLENDER DO, LORE Perez Ot I48.91 UNSPECIFIED ATRIAL FIBRILLATION 02/06/2019 GELLENDER DO, LORE Perez Ot R26.81 UNSTEADINESS ON FEET 02/06/2019 GELLENDER DO, LORE Perez Ot R26.9 UNSPECIFIED ABNORMALITIES OF GAIT AND MO 02/06/2019 GELLENDER DO, LORE Perez Ot R53.1 WEAKNESS 02/06/2019 GELLENDER DO, LORE Perez Ot Z87.19 PERSONAL HISTORY OF OTHER DISEASES OF TH 02/12/2019 GELLENDER DO, LORE Perez Ot M47.816 SPONDYLOSIS W/O MYELOPATHY OR RADICULOPA 09/02/2019 GELLENDER DO, LORE Perez Ot R13.12 DYSPHAGIA, OROPHARYNGEAL PHASE 10/03/2019 GELLENDER DO, LORE Perez Ot R13.10 DYSPHAGIA, UNSPECIFIED 01/21/2020 GELLENDER DO, LORE Perez Ot V76.12 OTH SCREEN MAMMO-MALIGN NEOPLASM OF ARISTEO 01/21/2020 GELLENDER DO, LORE Perez Ot N85.8 OTHER SPECIFIED NONINFLAMMATORY DISORDER 01/21/2020 GELLENDER DO, LORE Perez Ot N95.0 POSTMENOPAUSAL BLEEDING 01/21/2020 GELLENDER DO, LORE Perez Ot N39.0 URINARY TRACT INFECTION, SITE NOT SPECIF 01/21/2020 GELLENDER DO, LORE Perez Ot R35.0 FREQUENCY OF MICTURITION 01/21/2020 MECCA FRANCIS SHAPING MACHINE TENDER Ot I08.1 RHEUMATIC DISORDERS OF BOTH MITRAL AND T 01/21/2020 MECCA FRANCIS SHAPING MACHINE TENDER Ot I48.0 PAROXYSMAL ATRIAL FIBRILLATION 01/21/2020 KIMBERLYORMECCA SHAPING MACHINE TENDER Ot Z79.01 GLASS FINISHER (CURRENT) USE OF ANTICOAGULANT 01/21/2020 GELLENDER DO, LORE Perez Ot S92.351A DISP FX OF FIFTH METATARSAL BONE, RIGHT 01/21/2020 GELLENDER DO, LORE Perez Ot S92.351D DISP FX OF 5TH METATARSAL BONE, R FT, 7T 01/21/2020 GELLENDER DO, LORE Perez Ot K63.1 PERFORATION OF INTESTINE (NONTRAUMATIC) 01/21/2020 Ot R19.7 DIAR SANG, UNSPECIFIED 01/21/2020 Ot S92.351D D ISP FX OF 5TH METATARSAL BONE, R FT, 7T 01/21/2020 GELLENDER DO, LORE Perez Ot R19.7 DIARRHEA, UNSPECIFIED 01/21/2020 GELLENDER DO, LORE Perez Ot M47.816 SPONDYLOSIS W/O MYELOPATHY OR RADICULOPA 01/21/2020 GELLENDER DO, LORE Perez Ot M19.041 PRIMARY OSTEOARTHRITIS, RIGHT HAND 01/21/2020 GELLENDER DO, LORE Perez Ot R13.10 DYSPHAGIA, UNSPECIFIED 01/21/2020 GELLENDER DO, LORE Perez Ot V76.12 OTH SCREEN MAMMO-MALIGN NEOPLASM OF ARISTEO 01/21/2020 GELLENDER DO, LORE Perez Ot N85.8 OTHER SPECIFIED NONINFLAMMATORY DISORDER 01/21/2020 GELLENDER DO, LORE Perez Ot N95.0 POSTMENOPAUSAL BLEEDING 01/21/2020 GELLENDER DO, LORE Perez Ot N39.0 URINARY TRACT INFECTION, SITE NOT SPECIF 01/21/2020 GELLENDER DO, LORE Perez Ot R35.0 FREQUENCY OF MICTURITION 01/21/2020 MECCA FRANCIS SHAPING MACHINE TENDER Ot I08.1 RHEUMATIC DISORDERS OF BOTH MITRAL AND T 01/21/2020 MECCA FRANCIS SHAPING MACHINE TENDER Ot I48.0 PAROXYSMAL ATRIAL FIBRILLATION 01/21/2020 MECCA FRANCIS SHAPING MACHINE TENDER Ot Z79.01 SNF (CURRENT) USE OF ANTICOAGULANT 01/21/2020 GELLENDER DO, LORE Perez Ot S92.351A DISP FX OF FIFTH METATARSAL BONE, RIGHT 01/21/2020 GELLENDER DO, LORE Perez Ot S92.351D DISP FX OF 5TH METATARSAL BONE, R FT, 7T 01/21/2020 GELLENDER DO, LORE Perez Ot K63.1 PERFORATION OF INTESTINE (NONTRAUMATIC) 01/21/2020 Ot R19.7 DIAR SANG, UNSPECIFIED 01/21/2020 Ot S92.351D D ISP FX OF 5TH METATARSAL BONE, R FT, 7T 01/21/2020 GELLENDER DO, LORE Perez Ot R19.7 DIARRHEA, UNSPECIFIED 01/21/2020 GELLENDER DO, LORE Perez Ot M47.816 SPONDYLOSIS W/O MYELOPATHY OR RADICULOPA 01/21/2020 GELLENDER DO, LORE Perez Ot M19.041 PRIMARY OSTEOARTHRITIS, RIGHT HAND 01/21/2020 GELLENDER DO, LORE Perez Ot R13.10 DYSPHAGIA, UNSPECIFIED 03/16/2020 Ot R19.7 DIAR SANG, UNSPECIFIED 03/16/2020 Ot S92.351D D ISP FX OF 5TH METATARSAL BONE, R FT, 7T 03/16/2020 GELLENDER DO, LORE Perez Ot V76.12 OTH SCREEN MAMMO-MALIGN NEOPLASM OF ARISTEO 03/16/2020 GELLENDER DO, LORE Perez Ot N85.8 OTHER SPECIFIED NONINFLAMMATORY DISORDER 03/16/2020 GELLENDER DO, LORE Perez Ot N95.0 POSTMENOPAUSAL BLEEDING 03/16/2020 GELLENDER DO, LORE Perez Ot N39.0 URINARY TRACT INFECTION, SITE NOT SPECIF 03/16/2020 GELLENDER DO, LORE Perez Ot R35.0 FREQUENCY OF MICTURITION 03/16/2020 MECCA FRANCIS SHAPING MACHINE TENDER Ot I08.1 RHEUMATIC DISORDERS OF BOTH MITRAL AND T 03/16/2020 MECCA FRANCIS SHAPING MACHINE TENDER Ot I48.0 PAROXYSMAL ATRIAL FIBRILLATION 03/16/2020 MECCA FRANCIS SHAPING MACHINE TENDER Ot Z79.01 SNF (CURRENT) USE OF ANTICOAGULANT 03/16/2020 GELLENDER DO, LORE Perez Ot S92.351A DISP FX OF FIFTH METATARSAL BONE, RIGHT 03/16/2020 GELLENDER DO, LORE Perez Ot S92.351D DISP FX OF 5TH METATARSAL BONE, R FT, 7T 03/16/2020 GELLENDER DO, LORE Perez Ot K63.1 PERFORATION OF INTESTINE (NONTRAUMATIC) 03/16/2020 Ot R19.7 DIAR SANG, UNSPECIFIED 03/16/2020 Ot S92.351D D ISP FX OF 5TH METATARSAL BONE, R FT, 7T 03/16/2020 GELLENDER DO, LORE Perez Ot R19.7 DIARRHEA, UNSPECIFIED 03/16/2020 GELLENDER DO, LORE Perez Ot M47.816 SPONDYLOSIS W/O MYELOPATHY OR RADICULOPA 03/16/2020 GELLENDER DO, LORE Perez Ot M19.041 PRIMARY OSTEOARTHRITIS, RIGHT HAND 03/16/2020 GELLENDER DO, LORE Perez Ot R13.10 DYSPHAGIA, UNSPECIFIED 03/16/2020 BAY NATARAJAN MD Ot F41. 9 ANXIETY DISORDER, UNSPECIFIED 03/16/2020 BAY NATARAJAN MD Ot I10 ESSENTIAL (PRIMARY) HYPERTENSION 03/16/2020 BAY NATARAJAN MD Ot I48. 91 UNSPECIFIED ATRIAL FIBRILLATION 03/16/2020 BAY NATARAJAN MD J Ot K21. 9 GASTRO-ESOPHAGEAL REFLUX DISEASE WITHOUT 03/16/2020 BAY NATARAJAN MD J Ot M19. 91 PRIMARY OSTEOARTHRITIS, UNSPECIFIED SITE 03/16/2020 BAY NATARAJAN MD Ot N30. 00 ACUTE CYSTITIS WITHOUT HEMATURIA 03/16/2020 BAY NATARAJAN MD Ot R04. 0 EPISTAXIS 03/16/2020 BAY NATARAJAN MD Ot R55 SYNCOPE AND COLLAPSE 03/16/2020 BAY NATARAJAN MD Ot S01.21XA LACERATION WITHOUT FOREIGN BODY OF NOSE, 03/16/2020 BAY NATARAJAN MD Ot S02.2XXA FRACTURE OF NASAL BONES, INIT ENCNTR FOR 03/16/2020 BAY NATARAJAN MD Ot W18.39XA OTHER FALL ON SAME LEVEL, INITIAL ENCOUN 03/16/2020 BAY NATARAJAN MD Ot Z79. 01 GLASS FINISHER (CURRENT) USE OF ANTICOAGULANT 03/16/2020 BAY NATARAJAN MD Ot Z79.899 OTHER SNF (CURRENT) DRUG THERAPY 03/16/2020 BAY NATARAJAN MD Ot Z86. 73 PRSNL HX OF TIA (TIA), AND CEREB INFRC W 03/16/2020 BAY NATARAJAN MD Ot Z88. 5 ALLERGY STATUS TO NARCOTIC AGENT STATUS 03/18/2020 BAY NATARAJAN MD Ot F41. 9 ANXIETY DISORDER, UNSPECIFIED 03/18/2020 BAY NATARAJAN MD Ot I10 ESSENTIAL (PRIMARY) HYPERTENSION 03/18/2020 BAY NATARAJAN MD Ot I48. 91 UNSPECIFIED ATRIAL FIBRILLATION 03/18/2020 BAY NATARAJAN MD Ot K21. 9 GASTRO-ESOPHAGEAL REFLUX DISEASE WITHOUT 03/18/2020 BAY NATARAJAN MD Ot M19. 91 PRIMARY OSTEOARTHRITIS, UNSPECIFIED SITE 03/18/2020 BAY NATARAJAN MD Ot N30. 00 ACUTE CYSTITIS WITHOUT HEMATURIA 03/18/2020 BAY NATARAJAN MD Ot R04. 0 EPISTAXIS 03/18/2020 BAY NATARAJAN MD Ot R55 SYNCOPE AND COLLAPSE 03/18/2020 BAY NATARAJAN MD Ot S01.21XA LACERATION WITHOUT FOREIGN BODY OF NOSE, 03/18/2020 BAY NATARAJAN MD Ot S02.2XXA FRACTURE OF NASAL BONES, INIT ENCNTR FOR 03/18/2020 BAY NATARAJAN MD Ot W18.39XA OTHER FALL ON SAME LEVEL, INITIAL ENCOUN 03/18/2020 BAY NATARAJAN MD Ot Z79. 01 GLASS FINISHER (CURRENT) USE OF ANTICOAGULANT 03/18/2020 BAY NATARAJAN MD Ot Z79.899 OTHER SNF (CURRENT) DRUG THERAPY 03/18/2020 BAY NATARAJAN MD Ot Z86. 73 PRSNL HX OF TIA (TIA), AND CEREB INFRC W 03/18/2020 BAY NATARAJAN MD Ot Z88. 5 ALLERGY STATUS TO NARCOTIC AGENT STATUS 03/30/2020 RAVI BROWNLEE FACC, ALI FACP CCDS Ot I48.0 PAROXYSMAL ATRIAL FIBRILLATION 03/30/2020 RAVI BROWNLEE FACC, ALI FACP CCDS Ot I65.23 OCCLUSION AND STENOSIS OF BILATERAL [place]OB[place] 03/30/2020 RAVI MD FACC, ALI FACP CCDS Ot R55 SYNCOPE AND COLLAPSE 03/30/2020 RAVI BROWNLEE FACC, ALI FACP CCDS Ot Z79.01 GLASS FINISHER (CURRENT) USE OF ANTICOAGULANT 03/30/2020 RAVI BROWNLEE FACC, ALI FACP CCDS Ot Z79.899 OTHER GLASS FINISHER (CURRENT) DRUG THERAPY 03/30/2020 RAVI BROWNLEE FACC, ALI FACP CCDS Ot Z80.9 FAMILY HISTORY OF MALIGNANT NEOPLASM, UN 03/30/2020 RAVI BROWNLEE FACC, ALI FACP CCDS Ot Z87.891 PERSONAL HISTORY OF NICOTINE DEPENDENCE 03/30/2020 RAVI BROWNLEE FACC, ALI FACP CCDS Ot Z88.5 ALLERGY STATUS TO NARCOTIC AGENT STATUS 03/30/2020 RAVI BROWNLEE FACC, ALI FACP CCDS Ot Z88.6 ALLERGY STATUS TO ANALGESIC AGENT STATUS 04/01/2020 RAVI BROWNLEE [facility], ALI FACP CCDS Ot I48.0 PAROXYSMAL ATRIAL FIBRILLATION 04/01/2020 RAVI BROWNLEE FACC, ALI FACP CCDS Ot I65.23 OCCLUSION AND STENOSIS OF BILATERAL [place] 04/01/2020 RAVI BROWNLEE [facility], ALI FACP CCDS Ot R55 SYNCOPE AND COLLAPSE 04/01/2020 RAVI BROWNLEE [facility], ALI FACP CCDS Ot Z79.01 GLASS FINISHER (CURRENT) USE OF ANTICOAGULANT 04/01/2020 RAVI BROWNLEE [facility], ALI FACP CCDS Ot Z79.899 OTHER GLASS FINISHER (CURRENT) DRUG THERAPY 04/01/2020 RAVI BROWNLEE [facility], ALI FACP CCDS Ot Z80.9 FAMILY HISTORY OF MALIGNANT NEOPLASM, UN 04/01/2020 RAVI BROWNLEE [facility], ALI FACP CCDS Ot Z87.891 PERSONAL HISTORY OF NICOTINE DEPENDENCE 04/01/2020 RAVI BROWNLEE [facility], ALI FACP CCDS Ot Z88.5 ALLERGY STATUS TO NARCOTIC AGENT STATUS 04/01/2020 RAVI BROWNLEE [facility], ALI FACP CCDS Ot Z88.6 ALLERGY STATUS TO ANALGESIC AGENT STATUS 04/08/2020 RAVI BROWNLEE [facility], ALI FACP CCDS Ot I48.0 PAROXYSMAL ATRIAL FIBRILLATION 04/08/2020 [facility], [facility] FACP CCDS Ot I65.23 OCCLUSION AND STENOSIS OF BILATERAL MOBLEY 04/08/2020 RAVI BROWNLEE [facility], ALI FACP CCDS Ot R55 SYNCOPE AND COLLAPSE 04/08/2020 RAVI BROWNLEE [facility], ALI FACP CCDS Ot Z79.01 SNF (CURRENT) USE OF ANTICOAGULANT 04/08/2020 RAVI BROWNLEE [facility], ALI FACP CCDS Ot Z79.899 OTHER GLASS FINISHER (CURRENT) DRUG THERAPY 04/08/2020 RAVI BROWNLEE [facility], ALI FACP CCDS Ot Z80.9 FAMILY HISTORY OF MALIGNANT NEOPLASM, UN 04/08/2020 RAVI BROWNLEE [facility], ALI FACP CCDS Ot Z87.891 PERSONAL HISTORY OF NICOTINE DEPENDENCE 04/08/2020 RAVI BROWNLEE [facility], ALI FACP CCDS Ot Z88.5 ALLERGY STATUS TO NARCOTIC AGENT STATUS 04/08/2020 RAVI BROWNLEE [facility], ALI FACP CCDS Ot Z88.6 ALLERGY STATUS TO ANALGESIC AGENT STATUS Procedures Code Description Performed By Per formed On [id number] EX TRACTION OF BUTTOCK SKIN, EXTERNAL LOLY 09/07/[id number] EDYD OF STOMACH WITH DRAINAGE DEVICE 01/23/2019 Results Test Result Range Complete blood count (CBC) with automate d white blood cell (WBC) differential - 09/05/16 12:30 Blood leukocytes automated count (number/volume) 11.1 10*3/uL 4.3-11.0 Blood erythrocytes automated count (number/volume) 3.53 10*6/uL 4.35-5.85 Venous blood hemoglobin measurement (mass/volume) 11.8 g/dL 11.5-16.0 Blood hematocrit (volume fraction) 34 % 35-52 Automated erythrocyte mean corpuscular volume 96 [ foz_us] 80-99 Automated erythrocyte mean corpuscular h emoglobin (mass per erythrocyte) 33 pg 25-34 Automated erythrocyte mean corpuscular h emoglobin concentration measurement (mass/volume) 35 g/dL 32-36 Automated erythrocyte distribution width ratio 12. 7 % 10.0- 14.5 Automated blood platelet count (count/volume) 245 10*3/uL [...] 10*3 1.0-4.0 Blood monocytes automated count (number/volume) 1. 2 10*3 0.0-1.0 Automated eosinophil count 0.1 10*3/uL 0 .0-0.3 Automated blood basophil count (count/volume) 0.0 10*3/uL 0.0-0.1 Comprehensive metabolic panel - 09/05/16 14:00 Serum or plasma sodium measurement (moles/volume) 134 mmol/L 135-145 Serum or plasma potassium measurement (moles/volume) 3.4 mmol/L 3.6-5.0 Serum or plasma chloride measurement (moles/volume) 102 mmol/L 98-107 Carbon dioxide 21 mmol/L 21-32 Serum or plasma anion gap determination (moles/volume) 11 mmol/L 5-14 Serum or plasma urea nitrogen measurement (mass/volume ) 15 mg/dL 7-18 Serum or plasma creatinine measurement (mass/volume) 0.59 mg/dL 0.60-1.30 Serum or plasma urea nitrogen/creatinine mass ratio 25 NRG Serum or plasma creatinine measurement w ith calculation of estimated glomerular filtration rate > NRG Serum or plasma glucose measurement (mass/volume) 109 mg/dL 70-105 Serum or plasma calcium measurement (mass/volume) 8.8 mg/dL 8.5-10.1 Serum or plasma total bilirubin measurement (mass/volu me) 0.6 mg/dL 0.1-1.0 Serum or plasma alkaline phosphatase nicolasa surement (enzymatic activity/volume) 50 U/L 40-136 Serum or plasma aspartate aminotransfera se measurement (enzymatic activity/volume) 18 U/L 5-34 Serum or plasma alanine aminotransferase measurement (enzymatic activity/volume) 16 U/L 0-55 Serum or plasma protein measurement (mass/volume) 6.1 g/dL 6.4-8.2 Serum or plasma albumin measurement (mass/volume) 3.6 g/dL 3.2-4.5 Bacterial blood culture - 09/05/16 14:00 Bacterial blood culture NG NRG Bacterial blood culture - 09/05/16 14:10 Bacterial blood culture NG NRG Gram stain microscopy - 09/05/16 16:00 GRAM STAIN RESULT MODERATE # GRAM POSITIVE COCCI NRG Bacteria identification in wound by cult ure - 09/05/16 16:00 Bacteria identification in wound by culture [id number] NRG FREE TEXT EXTERNAL (GROUP F POSITIVE) N RG QUANTITY OF GROWTH Abundant Growth NRG Bacterial susceptibility panel - 6 16:00 Oxacillin susceptibility test by minimum inhibitory co ncentration <= NRG Gentamicin susceptibility test by minimum inhibitory c oncentration <= NRG Clindamycin susceptibility test by minimum inhibitory concentration <= NRG Erythromycin susceptibility test by minimum inhibitory concentration >= NRG Trimethoprim/sulfamethoxazole susceptibi lity test by minimum inhibitoryconcentration <= NRG Vancomycin susceptibility test by minimum inhibitory c oncentration 1 NRG Levofloxacin susceptibility test by minimum inhibitory concentration <= NRG Rifampin susceptibility test by minimum inhibitory con centration <= NRG Tetracycline susceptibility test by minimum inhibitory concentration <= NRG Complete blood count (CBC) with automate d white blood cell (WBC) differential - 09/06/16 05:44 Blood leukocytes automated count (number/volume) 10.4 10*3/uL 4.3-11.0 Blood erythrocytes automated count (number/volume) 3.33 10*6/uL 4.35-5.85 Venous blood hemoglobin measurement (mass/volume) 10.9 g/dL 11.5-16.0 Blood hematocrit (volume fraction) 32 % 35-52 Automated erythrocyte mean corpuscular volume 95 [ foz_us] 80-99 Automated erythrocyte mean corpuscular h emoglobin (mass per erythrocyte) 33 pg 25-34 Automated erythrocyte mean corpuscular h emoglobin concentration measurement (mass/volume) 35 g/dL 32-36 Automated erythrocyte distribution width ratio 12. 7 % 10.0- 14.5 Automated blood platelet count (count/volume) 233 10*3/uL [...] 10*3 1.0-4.0 Blood monocytes automated count (number/volume) 1. 2 10*3 0.0-1.0 Automated eosinophil count 0.1 10*3/uL 0 .0-0.3 Automated blood basophil count (count/volume) 0.0 10*3/uL 0.0-0.1 Comprehensive metabolic panel - 09/06/16 05:44 Serum or plasma sodium measurement (moles/volume) 135 mmol/L 135-145 Serum or plasma potassium measurement (moles/volume) 3.5 mmol/L 3.6-5.0 Serum or plasma chloride measurement (moles/volume) 104 mmol/L 98-107 Carbon dioxide 21 mmol/L 21-32 Serum or plasma anion gap determination (moles/volume) 10 mmol/L 5-14 Serum or plasma urea nitrogen measurement (mass/volume ) 8 mg/dL 7-18 Serum or plasma creatinine measurement (mass/volume) 0.57 mg/dL 0.60-1.30 Serum or plasma urea nitrogen/creatinine mass ratio 14 NRG Serum or plasma creatinine measurement w ith calculation of estimated glomerular filtration rate > NRG Serum or plasma glucose measurement (mass/volume) 114 mg/dL 70-105 Serum or plasma calcium measurement (mass/volume) 8.2 mg/dL 8.5-10.1 Serum or plasma total bilirubin measurement (mass/volu me) 0.6 mg/dL 0.1-1.0 Serum or plasma alkaline phosphatase nicolasa surement (enzymatic activity/volume) 48 U/L 40-136 Serum or plasma aspartate aminotransfera se measurement (enzymatic activity/volume) 16 U/L 5-34 Serum or plasma alanine aminotransferase measurement (enzymatic activity/volume) 17 U/L 0-55 Serum or plasma protein measurement (mass/volume) 5.4 g/dL 6.4-8.2 Serum or plasma albumin measurement (mass/volume) 3.2 g/dL 3.2-4.5 Methicillin resistant Staphylococcus aur eus (MRSA) screening culture - 09/06/16 18:30 Methicillin resistant Staphylococcus aureus (MRSA) scr eening culture NEG NRG Complete blood count (CBC) with automate d white blood cell (WBC) differential - 09/07/16 06:15 Blood leukocytes automated count (number/volume) 9.2 10*3/uL 4.3-11.0 Blood erythrocytes automated count (number/volume) 3.52 10*6/uL 4.35-5.85 Venous blood hemoglobin measurement (mass/volume) 11.7 g/dL 11.5-16.0 Blood hematocrit (volume fraction) 34 % 35-52 Automated erythrocyte mean corpuscular volume 96 [ foz_us] 80-99 Automated erythrocyte mean corpuscular h emoglobin (mass per erythrocyte) 33 pg 25-34 Automated erythrocyte mean corpuscular h emoglobin concentration measurement (mass/volume) 35 g/dL 32-36 Automated erythrocyte distribution width ratio 12. 7 % 10.0- 14.5 Automated blood platelet count (count/volume) 266 10*3/uL [...] 10*3 1.0-4.0 Blood monocytes automated count (number/volume) 1. 0 10*3 0.0-1.0 Automated eosinophil count 0.2 10*3/uL 0 .0-0.3 Automated blood basophil count (count/volume) 0.0 10*3/uL 0.0-0.1 Whole blood basic metabolic panel - 08/14 04/28 06:15 Serum or plasma sodium measurement (moles/volume) 136 mmol/L 135-145 Serum or plasma potassium measurement (moles/volume) 3.6 mmol/L 3.6-5.0 Serum or plasma chloride measurement (moles/volume) 102 mmol/L 98-107 Carbon dioxide 24 mmol/L 21-32 Serum or plasma anion gap determination (moles/volume) 10 mmol/L 5-14 Serum or plasma urea nitrogen measurement (mass/volume ) 5 mg/dL 7-18 Serum or plasma creatinine measurement (mass/volume) 0.62 mg/dL 0.60-1.30 Serum or plasma urea nitrogen/creatinine mass ratio 8 NRG Serum or plasma creatinine measurement w ith calculation of estimated glomerular filtration rate > NRG Serum or plasma glucose measurement (mass/volume) 115 mg/dL 70-105 Serum or plasma calcium measurement (mass/volume) 9.0 mg/dL 8.5-10.1 Complete blood count (CBC) with automate d white blood cell (WBC) differential - 09/08/16 05:17 Blood leukocytes automated count (number/volume) 7.5 10*3/uL 4.3-11.0 Blood erythrocytes automated count (number/volume) 3.22 10*6/uL 4.35-5.85 Venous blood hemoglobin measurement (mass/volume) 10.6 g/dL 11.5-16.0 Blood hematocrit (volume fraction) 31 % 35-52 Automated erythrocyte mean corpuscular volume 96 [ foz_us] 80-99 Automated erythrocyte mean corpuscular h emoglobin (mass per erythrocyte) 33 pg 25-34 Automated erythrocyte mean corpuscular h emoglobin concentration measurement (mass/volume) 34 g/dL 32-36 Automated erythrocyte distribution width ratio 12. 7 % 10.0- 14.5 Automated blood platelet count (count/volume) 268 10*3/uL [...] 10*3 1.0-4.0 Blood monocytes automated count (number/volume) 0. 9 10*3 0.0-1.0 Automated eosinophil count 0.2 10*3/uL 0 .0-0.3 Automated blood basophil count (count/volume) 0.0 10*3/uL 0.0-0.1 Whole blood basic metabolic panel - 08/14 05/28 05:17 Serum or plasma sodium measurement (moles/volume) 135 mmol/L 135-145 Serum or plasma potassium measurement (moles/volume) 3.5 mmol/L 3.6-5.0 Serum or plasma chloride measurement (moles/volume) 104 mmol/L 98-107 Carbon dioxide 26 mmol/L 21-32 Serum or plasma anion gap determination (moles/volume) 5 mmol/L 5-14 Serum or plasma urea nitrogen measurement (mass/volume ) 3 mg/dL 7-18 Serum or plasma creatinine measurement (mass/volume) 0.57 mg/dL 0.60-1.30 Serum or plasma urea nitrogen/creatinine mass ratio 5 NRG Serum or plasma creatinine measurement w ith calculation of estimated glomerular filtration rate > NRG Serum or plasma glucose measurement (mass/volume) 128 mg/dL 70-105 Serum or plasma calcium measurement (mass/volume) 8.2 mg/dL 8.5-10.1 Complete blood count (CBC) with automate d white blood cell (WBC) differential - 09/09/16 06:30 Blood leukocytes automated count (number/volume) 7.0 10*3/uL 4.3-11.0 Blood erythrocytes automated count (number/volume) 3.51 10*6/uL 4.35-5.85 Venous blood hemoglobin measurement (mass/volume) 11.6 g/dL 11.5-16.0 Blood hematocrit (volume fraction) 34 % 35-52 Automated erythrocyte mean corpuscular volume 95 [ foz_us] 80-99 Automated erythrocyte mean corpuscular h emoglobin (mass per erythrocyte) 33 pg 25-34 Automated erythrocyte mean corpuscular h emoglobin concentration measurement (mass/volume) 35 g/dL 32-36 Automated erythrocyte distribution width ratio 12. 6 % 10.0- 14.5 Automated blood platelet count (count/volume) 323 10*3/uL [...] 10*3 1.0-4.0 Blood monocytes automated count (number/volume) 0. 9 10*3 0.0-1.0 Automated eosinophil count 0.1 10*3/uL 0 .0-0.3 Automated blood basophil count (count/volume) 0.0 10*3/uL 0.0-0.1 Whole blood basic metabolic panel - 08/14 06/28 06:30 Serum or plasma sodium measurement (moles/volume) 138 mmol/L 135-145 Serum or plasma potassium measurement (moles/volume) 3.4 mmol/L 3.6-5.0 Serum or plasma chloride measurement (moles/volume) 101 mmol/L 98-107 Carbon dioxide 28 mmol/L 21-32 Serum or plasma anion gap determination (moles/volume) 9 mmol/L 5-14 Serum or plasma urea nitrogen measurement (mass/volume ) < mg/dL 7-18 Serum or plasma creatinine measurement (mass/volume) 0.56 mg/dL 0.60-1.30 Serum or plasma urea nitrogen/creatinine mass ratio 4 NRG Serum or plasma creatinine measurement w ith calculation of estimated glomerular filtration rate > NRG Serum or plasma glucose measurement (mass/volume) 116 mg/dL 70-105 Serum or plasma calcium measurement (mass/volume) 8.8 mg/dL 8.5-10.1 Automated blood complete blood count ( mogram) panel - 09/10/16 05:20 Blood leukocytes automated count (number/volume) 7.0 10*3/uL 4.3-11.0 Blood erythrocytes automated count (number/volume) 3.49 10*6/uL 4.35-5.85 Venous blood hemoglobin measurement (mass/volume) 11.3 g/dL 11.5-16.0 Blood hematocrit (volume fraction) 33 % 35-52 Automated erythrocyte mean corpuscular volume 95 [ foz_us] 80-99 Automated erythrocyte mean corpuscular h emoglobin (mass per erythrocyte) 32 pg 25-34 Automated erythrocyte mean corpuscular h emoglobin concentration measurement (mass/volume) 34 g/dL 32-36 Automated erythrocyte distribution width ratio 12. 8 % 10.0- 14.5 Automated blood platelet count (count/volume) 324 10*3/uL 130-400 Automated blood platelet mean volume measurement 9.2 [foz_us] 7.4-10.4 Whole blood basic metabolic panel - 08/14 07/29 05:20 Serum or plasma sodium measurement (moles/volume) 139 mmol/L 135-145 Serum or plasma potassium measurement (moles/volume) 3.6 mmol/L 3.6-5.0 Serum or plasma chloride measurement (moles/volume) 102 mmol/L 98-107 Carbon dioxide 28 mmol/L 21-32 Serum or plasma anion gap determination (moles/volume) 9 mmol/L 5-14 Serum or plasma urea nitrogen measurement (mass/volume ) 3 mg/dL 7-18 Serum or plasma creatinine measurement (mass/volume) 0.55 mg/dL 0.60-1.30 Serum or plasma urea nitrogen/creatinine mass ratio 5 NRG Serum or plasma creatinine measurement w ith calculation of estimated glomerular filtration rate > NRG Serum or plasma glucose measurement (mass/volume) 116 mg/dL 70-105 Serum or plasma calcium measurement (mass/volume) 8.2 mg/dL 8.5-10.1 Influenza virus A and B antigen detectio n - 12/22/16 16:34 FLU RESULT NEGATIVE FOR INFLUENZA A AND B ANTIGENS BY [facility] Bacterial urine culture - 12/21/17 16:45 Bacterial urine culture [id number] NRG COLONY COUNT >100,000/ML NR FTX;REPORTABLE SENSITIVITY REPORTED AT 1032, 2-10- 18 [facility] URINE CULTURE RESULTS PLUS [facility] Bacterial susceptibility panel - 8 16:45 Gentamicin susceptibility test by minimum inhibitory c oncentration <= NRG Trimethoprim/sulfamethoxazole susceptibi lity test by minimum inhibitoryconcentration S NRG Ampicillin susceptibility test by minimum inhibitory c oncentration >= NRG Tobramycin susceptibility test by minimum inhibitory c oncentration <= NRG Cefazolin susceptibility test by minimum inhibitory co ncentration <= NRG Ceftriaxone susceptibility test by minimum inhibitory concentration <= NRG Ampicillin/sulbactam susceptibility test by minimum inhibitory concentration R NRG Piperacillin/tazobactam susceptibility t est by minimum inhibitory concentration S NRG Ciprofloxacin susceptibility test by minimum inhibitor y concentration <= NRG Meropenem susceptibility test by minimum inhibitory co ncentration <= NRG Nitrofurantoin susceptibility test by mi nimum inhibitory concentration <= NRG Aztreonam susceptibility test by minimum inhibitory co ncentration <= NRG Extended spectrum beta lactamase (ESBL) producing bacteria susceptibility test by minimum inhibitory concentration - NR Bacterial urine culture - 01/11/18 17:00 Bacterial urine culture [id number] NRG COLONY COUNT <10,000 NRG FTX;REPORTABLE SENSITIVITY REPORTED 01/14/18 9:45 NRG FREE TEXT ENTRY 2 PLUS, NRG FREE TEXT ENTRY 3 MIXED GRAM POSITIVES 10-100,000/ ML NR Bacterial susceptibility panel - 8 17:00 Gentamicin susceptibility test by minimum inhibitory c oncentration R NRG Vancomycin susceptibility test by minimum inhibitory c oncentration 1 NRG Levofloxacin susceptibility test by minimum inhibitory concentration >= NRG Tetracycline susceptibility test by minimum inhibitory concentration >= NRG Ampicillin susceptibility test by minimum inhibitory c oncentration <= NRG Ciprofloxacin susceptibility test by minimum inhibitor y concentration R NRG Nitrofurantoin susceptibility test by mi nimum inhibitory concentration <= NRG Linezolid susceptibility test by minimum inhibitory co ncentration 2 NRG Complete blood count (CBC) with automate d white blood cell (WBC) differential - 02/11/18 10:18 Blood leukocytes automated count (number/volume) 7.1 10*3/uL 4.3-11.0 Blood erythrocytes automated count (number/volume) 4.03 10*6/uL 4.35-5.85 Venous blood hemoglobin measurement (mass/volume) 13.2 g/dL 11.5-16.0 Blood hematocrit (volume fraction) 38 % 35-52 Automated erythrocyte mean corpuscular volume 95 [ foz_us] 80-99 Automated erythrocyte mean corpuscular h emoglobin (mass per erythrocyte) 33 pg 25-34 Automated erythrocyte mean corpuscular h emoglobin concentration measurement (mass/volume) 34 g/dL 32-36 Automated erythrocyte distribution width ratio 13. 4 % 10.0- 14.5 Automated blood platelet count (count/volume) 229 10*3/uL [...] 10*3 1.0-4.0 Blood monocytes automated count (number/volume) 0. 6 10*3 0.0-1.0 Automated eosinophil count 0.1 10*3/uL 0 .0-0.3 Automated blood basophil count (count/volume) 0.0 10*3/uL 0.0-0.1 PT panel in platelet poor plasma by coag ulation assay - 02/11/18 10:18 Prothrombin time (PT) in platelet poor plasma by coagu lation assay 13.3 s 12.2-14.7 INR in platelet poor plasma or blood by coagulation as say 1.0 0.8-1.4 Activated partial thromboplastin time (a PTT) in platelet poor plasma bycoagulation assay - 02/11/18 10:18 Activated partial thromboplastin time (a PTT) in platelet poor plasma bycoagulation assay 24 s 24-35 Fibrin D-dimer FEU measurement in platel et poor plasma (mass/volume) - 02/11/18 10:18 Fibrin D-dimer FEU measurement in platelet [...] 5-14 Serum or plasma urea nitrogen measurement (mass/volume ) 17 mg/dL 7-18 Serum or plasma creatinine measurement (mass/volume) 0.80 mg/dL 0.60-1.30 Serum or plasma urea nitrogen/creatinine mass ratio 21 NRG Serum or plasma creatinine measurement w ith calculation of estimated glomerular filtration rate > NRG Serum or plasma glucose measurement (mass/volume) 120 mg/dL 70-105 Serum or plasma calcium measurement (mass/volume) 9.6 mg/dL 8.5-10.1 Serum or plasma total bilirubin measurement (mass/volu me) 0.7 mg/dL 0.1-1.0 Serum or plasma alkaline phosphatase nicolasa surement (enzymatic activity/volume) 37 U/L 40-136 Serum or plasma aspartate aminotransfera se measurement (enzymatic activity/volume) 16 U/L 5-34 Serum or plasma alanine aminotransferase measurement (enzymatic activity/volume) 12 U/L 0-55 Serum or plasma protein measurement (mass/volume) 6.7 g/dL 6.4-8.2 Serum or plasma albumin measurement (mass/volume) 4.3 g/dL 3.2-4.5 Serum or plasma troponin i.cardiac measu rement (mass/volume) - 02/11/18 10:18 Serum or plasma troponin i.cardiac measurement (mass/v olume) < ng/mL <0.30 Capillary blood glucose measurement by g lucometer (mass/volume) - 02/11/18 10:36 Capillary blood glucose measurement by glucometer (mas s/volume) 106 mg/dL 70-110 Complete urinalysis with reflex to cultu re - 02/11/18 13:32 Urine color determination YELLOW NRG Urine clarity determination CLEAR NR G Urine pH measurement by test strip 6.5 5-9 Specific gravity of urine by test strip 1.015 1.016-1.022 Urine protein assay by test strip, semi-quantitative NEGATIVE NEGATIVE Urine glucose detection by automated test strip NE GATIVE NEGATIVE Erythrocytes detection in urine sediment by light micr oscopy NEGATIVE NEGATIVE Urine ketones detection by automated test strip 2+ NEGATIVE Urine nitrite detection by test strip NEGATIVE NEGATIVE Urine total bilirubin detection by test strip NEGA TIVE NEGATIVE Urine urobilinogen measurement by automated test strip (mass/volume) NORMAL NORMAL Urine leukocyte esterase detection by dipstick 3+ NEGATIVE Automated urine sediment erythrocyte cou nt by microscopy (number/high power field) NONE NRG Automated urine sediment leukocyte count by microscopy (number/high power field) [HPF] NRG Bacteria detection in urine sediment by light microsco py TRACE NRG Squamous epithelial cells detection in u rine sediment by light microscopy 2-5 NRG Crystals detection in urine sediment by light microsco py NONE NRG Casts detection in urine sediment by light microscopy PRESENT NRG Mucus detection in urine sediment by light microscopy NEGATIVE NRG Complete urinalysis with reflex to culture YES NRG Hyaline casts detection in urine sediment by light jay roscopy 2-5 NRG Bacterial urine culture - 02/11/18 13:32 Bacterial urine culture [id number] NRG COLONY COUNT <10,000 NRG FREE TEXT ENTRY 2 OTHER GRAM POSITIVE JOS NRG Complete blood count (CBC) with automate d white blood cell (WBC) differential - 02/12/18 03:25 Blood leukocytes automated count (number/volume) 7.1 10*3/uL 4.3-11.0 Blood erythrocytes automated count (number/volume) 3.87 10*6/uL 4.35-5.85 Venous blood hemoglobin measurement (mass/volume) 12.7 g/dL 11.5-16.0 Blood hematocrit (volume fraction) 37 % 35-52 Automated erythrocyte mean corpuscular volume 95 [ foz_us] 80-99 Automated erythrocyte mean corpuscular h emoglobin (mass per erythrocyte) 33 pg 25-34 Automated erythrocyte mean corpuscular h emoglobin concentration measurement (mass/volume) 34 g/dL 32-36 Automated erythrocyte distribution width ratio 13. 4 % 10.0- 14.5 Automated blood platelet count (count/volume) 228 10*3/uL [...] 10*3 1.0-4.0 Blood monocytes automated count (number/volume) 0. 7 10*3 0.0-1.0 Automated eosinophil count 0.1 10*3/uL 0 .0-0.3 Automated blood basophil count (count/volume) 0.0 10*3/uL 0.0-0.1 Comprehensive metabolic panel - 02/12/18 03:25 Serum or plasma sodium measurement (moles/volume) 134 mmol/L 135-145 Serum or plasma potassium measurement (moles/volume) 3.8 mmol/L 3.6-5.0 Serum or plasma chloride measurement (moles/volume) 100 mmol/L 98-107 Carbon dioxide 26 mmol/L 21-32 Serum or plasma anion gap determination (moles/volume) 8 mmol/L 5-14 Serum or plasma urea nitrogen measurement (mass/volume ) 14 mg/dL 7-18 Serum or plasma creatinine measurement (mass/volume) 0.69 mg/dL 0.60-1.30 Serum or plasma urea nitrogen/creatinine mass ratio 20 NRG Serum or plasma creatinine measurement w ith calculation of estimated glomerular filtration rate > NRG Serum or plasma glucose measurement (mass/volume) 115 mg/dL 70-105 Serum or plasma calcium measurement (mass/volume) 9.1 mg/dL 8.5-10.1 Serum or plasma total bilirubin measurement (mass/volu me) 0.7 mg/dL 0.1-1.0 Serum or plasma alkaline phosphatase nicolasa surement (enzymatic activity/volume) 34 U/L 40-136 Serum or plasma aspartate aminotransfera se measurement (enzymatic activity/volume) 15 U/L 5-34 Serum or plasma alanine aminotransferase measurement (enzymatic activity/volume) 12 U/L 0-55 Serum or plasma protein measurement (mass/volume) 6.1 g/dL 6.4-8.2 Serum or plasma albumin measurement (mass/volume) 4.0 g/dL 3.2-4.5 Magnesium - 02/12/18 03:25 Magnesium 2.2 mg/dL 1.8-2.4 THYROID STIMULATING HORMONE - 02/12/18 0 3:25 THYROID STIMULATING HORMONE 0.73 u[iU]/mL 0.35-4.94 C DIFFICILE AG + TOXIN A/B. - 03/30/18 1 1:12 RESULTS NEGATIVE FOR ANTIGEN AND TOXIN A/B [facility] C DIFFICILE AG + TOXIN A/B. - 05/19/18 2 0:14 RESULTS NEGATIVE FOR ANTIGEN AND TOXIN A/B [facility] Complete blood count (CBC) with automate d white blood cell (WBC) differential - 01/23/19 16:42 Blood leukocytes automated count (number/volume) 15.2 10*3/uL 4.3-11.0 Blood erythrocytes automated count (number/volume) 4.70 10*6/uL 4.35-5.85 Venous blood hemoglobin measurement (mass/volume) 15.6 g/dL 11.5-16.0 Blood hematocrit (volume fraction) 44 % 35-52 Automated erythrocyte mean corpuscular volume 95 [ foz_us] 80-99 Automated erythrocyte mean corpuscular h emoglobin (mass per erythrocyte) 33 pg 25-34 Automated erythrocyte mean corpuscular h emoglobin concentration measurement (mass/volume) 35 g/dL 32-36 Automated erythrocyte distribution width ratio 13. 5 % 10.0- 14.5 Automated blood platelet count (count/volume) 307 10*3/uL [...] 10*3 1.0-4.0 Blood monocytes automated count (number/volume) 0. 8 10*3 0.0-1.0 Automated eosinophil count 0.0 10*3/uL 0 .0-0.3 Automated blood basophil count (count/volume) 0.0 10*3/uL 0.0-0.1 Comprehensive metabolic panel - 01/23/19 16:42 Serum or plasma sodium measurement (moles/volume) 129 mmol/L 135-145 Serum or plasma potassium measurement (moles/volume) 4.9 mmol/L 3.6-5.0 Serum or plasma chloride measurement (moles/volume) 96 mmol/L 98-107 Carbon dioxide 21 mmol/L 21-32 Serum or plasma anion gap determination (moles/volume) 12 mmol/L 5-14 Serum or plasma urea nitrogen measurement (mass/volume ) 16 mg/dL 7-18 Serum or plasma creatinine measurement (mass/volume) 0.92 mg/dL 0.60-1.30 Serum or plasma urea nitrogen/creatinine mass ratio 17 NRG Serum or plasma creatinine measurement w ith calculation of estimated glomerular filtration rate 58 NRG Serum or plasma glucose measurement (mass/volume) 187 mg/dL 70-105 Serum or plasma calcium measurement (mass/volume) 10.0 mg/dL 8.5-10.1 Serum or plasma total bilirubin measurement (mass/volu me) 0.9 mg/dL 0.1-1.0 Serum or plasma alkaline phosphatase nicolasa surement (enzymatic activity/volume) 49 U/L 40-136 Serum or plasma aspartate aminotransfera se measurement (enzymatic activity/volume) 23 U/L 5-34 Serum or plasma alanine aminotransferase measurement (enzymatic activity/volume) 11 U/L 0-55 Serum or plasma protein measurement (mass/volume) 7.7 g/dL 6.4-8.2 Serum or plasma albumin measurement (mass/volume) 4.8 g/dL 3.2-4.5 Lipase - 01/23/19 16:42 Lipase 5 U/L 8-78 Serum or plasma troponin i.cardiac measu rement (mass/volume) - 01/23/19 16:42 Serum or plasma troponin i.cardiac measurement (mass/v olume) < ng/mL <0.028 Blood manual differential performed dete ction - 01/23/19 16:42 Blood monocytes/100 leukocytes 1 % NRG Manual blood segmented neutrophils/100 leukocytes 80 % NRG Blood band neutrophils/100 leukocytes 4 % NRG Manual blood lymphocytes/100 leukocytes 15 % NRG Manual eosinophils/100 leukocytes in nose 0 % NRG Manual blood basophils/100 leukocytes 0 % NRG Blood erythrocyte morphology finding identification NORMAL NRG Complete blood count (CBC) with automate d white blood cell (WBC) differential - 01/24/19 05:25 Blood leukocytes automated count (number/volume) 5.5 10*3/uL 4.3-11.0 Blood erythrocytes automated count (number/volume) 4.64 10*6/uL 4.35-5.85 Venous blood hemoglobin measurement (mass/volume) 15.1 g/dL 11.5-16.0 Blood hematocrit (volume fraction) 44 % 35-52 Automated erythrocyte mean corpuscular volume 95 [ foz_us] 80-99 Automated erythrocyte mean corpuscular h emoglobin (mass per erythrocyte) 33 pg 25-34 Automated erythrocyte mean corpuscular h emoglobin concentration measurement (mass/volume) 34 g/dL 32-36 Automated erythrocyte distribution width ratio 13. 2 % 10.0- 14.5 Automated blood platelet count (count/volume) 235 10*3/uL [...] 10*3 1.0-4.0 Blood monocytes automated count (number/volume) 0. 8 10*3 0.0-1.0 Automated eosinophil count 0.0 10*3/uL 0 .0-0.3 Automated blood basophil count (count/volume) 0.0 10*3/uL 0.0-0.1 Comprehensive metabolic panel - 01/24/19 05:25 Serum or plasma sodium measurement (moles/volume) 135 mmol/L 135-145 Serum or plasma potassium measurement (moles/volume) 4.6 mmol/L 3.6-5.0 Serum or plasma chloride measurement (moles/volume) 98 mmol/L 98-107 Carbon dioxide 24 mmol/L 21-32 Serum or plasma anion gap determination (moles/volume) 13 mmol/L 5-14 Serum or plasma urea nitrogen measurement (mass/volume ) 22 mg/dL 7-18 Serum or plasma creatinine measurement (mass/volume) 0.78 mg/dL 0.60-1.30 Serum or plasma urea nitrogen/creatinine mass ratio 28 NRG Serum or plasma creatinine measurement w ith calculation of estimated glomerular filtration rate > NRG Serum or plasma glucose measurement (mass/volume) 145 mg/dL 70-105 Serum or plasma calcium measurement (mass/volume) 9.2 mg/dL 8.5-10.1 Serum or plasma total bilirubin measurement (mass/volu me) 0.9 mg/dL 0.1-1.0 Serum or plasma alkaline phosphatase nicolasa surement (enzymatic activity/volume) 41 U/L 40-136 Serum or plasma aspartate aminotransfera se measurement (enzymatic activity/volume) 17 U/L 5-34 Serum or plasma alanine aminotransferase measurement (enzymatic activity/volume) 9 U/L 0-55 Serum or plasma protein measurement (mass/volume) 6.9 g/dL 6.4-8.2 Serum or plasma albumin measurement (mass/volume) 4.4 g/dL 3.2-4.5 CALCIUM CORRECTED 8.9 mg/dL 8.5-10.1 PT panel in platelet poor plasma by coag ulation assay - 01/24/19 05:25 Prothrombin time (PT) in platelet poor plasma by coagu lation assay 12.9 s 12.2-14.7 INR in platelet poor plasma or blood by coagulation as say 1.0 0.8-1.4 Activated partial thromboplastin time (a PTT) in platelet poor plasma bycoagulation assay - 01/24/19 05:25 Activated partial thromboplastin time (a PTT) in platelet poor plasma bycoagulation assay 29 s 24-35 Bacterial urine culture - 01/24/19 13:05 Bacterial urine culture NG NRG Automated blood complete blood count (he mogram) panel - 01/25/19 05:35 Blood leukocytes automated count (number/volume) 4.9 10*3/uL 4.3-11.0 Blood erythrocytes automated count (number/volume) 3.98 10*6/uL 4.35-5.85 Venous blood hemoglobin measurement (mass/volume) 13.1 g/dL 11.5-16.0 Blood hematocrit (volume fraction) 39 % 35-52 Automated erythrocyte mean corpuscular volume 97 [ foz_us] 80-99 Automated erythrocyte mean corpuscular h emoglobin (mass per erythrocyte) 33 pg 25-34 Automated erythrocyte mean corpuscular h emoglobin concentration measurement (mass/volume) 34 g/dL 32-36 Automated erythrocyte distribution width ratio 13. 7 % 10.0- 14.5 Automated blood platelet count (count/volume) 231 10*3/uL [...] 5-14 Serum or plasma urea nitrogen measurement (mass/volume ) 20 mg/dL 7-18 Serum or plasma creatinine measurement (mass/volume) 0.67 mg/dL 0.60-1.30 Serum or plasma urea nitrogen/creatinine mass ratio 30 NRG Serum or plasma creatinine measurement w ith calculation of estimated glomerular filtration rate > NRG Serum or plasma glucose measurement (mass/volume) 117 mg/dL 70-105 Serum or plasma calcium measurement (mass/volume) 8.5 mg/dL 8.5-10.1 Serum or plasma total bilirubin measurement (mass/volu me) 0.7 mg/dL 0.1-1.0 Serum or plasma alkaline phosphatase nicolasa surement (enzymatic activity/volume) 35 U/L 40-136 Serum or plasma aspartate aminotransfera se measurement (enzymatic activity/volume) 16 U/L 5-34 Serum or plasma alanine aminotransferase measurement (enzymatic activity/volume) 9 U/L 0-55 Serum or plasma protein measurement (mass/volume) 6.2 g/dL 6.4-8.2 Serum or plasma albumin measurement (mass/volume) 3.9 g/dL 3.2-4.5 CALCIUM CORRECTED 8.6 mg/dL 8.5-10.1 Complete urinalysis with reflex to cultu re - 01/26/19 04:35 Urine color determination FELICIANO NRG Urine clarity determination SLIGHTLY CLOUDY NRG Urine pH measurement by test strip 6 5-9 Specific gravity of urine by test strip 1.020 1.016-1.022 Urine protein assay by test strip, semi-quantitative 2+ NEGATIVE Urine glucose detection by automated test strip NE GATIVE NEGATIVE Erythrocytes detection in urine sediment by light micr oscopy 1+ NEGATIVE Urine ketones detection by automated test strip 4+ NEGATIVE Urine nitrite detection by test strip POSITIVE NEGATIVE Urine total bilirubin detection by test strip NEGA TIVE NEGATIVE Urine urobilinogen measurement by automated test strip (mass/volume) NORMAL NORMAL Urine leukocyte esterase detection by dipstick 2+ NEGATIVE Automated urine sediment erythrocyte cou nt by microscopy (number/high power field) [HPF] NRG Automated urine sediment leukocyte count by microscopy (number/high power field) [HPF] NRG Bacteria detection in urine sediment by light microsco py FEW NRG Squamous epithelial cells detection in u rine sediment by light microscopy 10-25 NRG Crystals detection in urine sediment by light microsco py NONE NRG Casts detection in urine sediment by light microscopy NONE NRG Mucus detection in urine sediment by light microscopy SMALL NRG Complete urinalysis with reflex to culture YES NRG Bacterial urine culture - 01/26/19 04:35 Bacterial urine culture YEAST NRG COLONY COUNT 40,000 CFU/ML NRG Automated blood complete blood count (he mogram) panel - 01/26/19 06:09 Blood leukocytes automated count (number/volume) 5.9 10*3/uL 4.3-11.0 Blood erythrocytes automated count (number/volume) 3.87 10*6/uL 4.35-5.85 Venous blood hemoglobin measurement (mass/volume) 12.7 g/dL 11.5-16.0 Blood hematocrit (volume fraction) 38 % 35-52 Automated erythrocyte mean corpuscular volume 97 [ foz_us] 80-99 Automated erythrocyte mean corpuscular h emoglobin (mass per erythrocyte) 33 pg 25-34 Automated erythrocyte mean corpuscular h emoglobin concentration measurement (mass/volume) 34 g/dL 32-36 Automated erythrocyte distribution width ratio 13. 5 % 10.0- 14.5 Automated blood platelet count (count/volume) 217 10*3/uL [...] 5-14 Serum or plasma urea nitrogen measurement (mass/volume ) 18 mg/dL 7-18 Serum or plasma creatinine measurement (mass/volume) 0.64 mg/dL 0.60-1.30 Serum or plasma urea nitrogen/creatinine mass ratio 28 NRG Serum or plasma creatinine measurement w ith calculation of estimated glomerular filtration rate > NRG Serum or plasma glucose measurement (mass/volume) 101 mg/dL 70-105 Serum or plasma calcium measurement (mass/volume) 8.5 mg/dL 8.5-10.1 Serum or plasma total bilirubin measurement (mass/volu me) 0.6 mg/dL 0.1-1.0 Serum or plasma alkaline phosphatase nicolasa surement (enzymatic activity/volume) 34 U/L 40-136 Serum or plasma aspartate aminotransfera se measurement (enzymatic activity/volume) 13 U/L 5-34 Serum or plasma alanine aminotransferase measurement (enzymatic activity/volume) 8 U/L 0-55 Serum or plasma protein measurement (mass/volume) 5.8 g/dL 6.4-8.2 Serum or plasma albumin measurement (mass/volume) 3.7 g/dL 3.2-4.5 CALCIUM CORRECTED 8.7 mg/dL 8.5-10.1 Complete blood count (CBC) with automate d white blood cell (WBC) differential - 01/27/19 06:23 Blood leukocytes automated count (number/volume) 8.5 10*3/uL 4.3-11.0 Blood erythrocytes automated count (number/volume) 3.86 10*6/uL 4.35-5.85 Venous blood hemoglobin measurement (mass/volume) 12.7 g/dL 11.5-16.0 Blood hematocrit (volume fraction) 37 % 35-52 Automated erythrocyte mean corpuscular volume 96 [ foz_us] 80-99 Automated erythrocyte mean corpuscular h emoglobin (mass per erythrocyte) 33 pg 25-34 Automated erythrocyte mean corpuscular h emoglobin concentration measurement (mass/volume) 34 g/dL 32-36 Automated erythrocyte distribution width ratio 12. 8 % 10.0- 14.5 Automated blood platelet count (count/volume) 219 10*3/uL [...] 10*3 1.0-4.0 Blood monocytes automated count (number/volume) 1. 3 10*3 0.0-1.0 Automated eosinophil count 0.1 10*3/uL 0 .0-0.3 Automated blood basophil count (count/volume) 0.0 10*3/uL 0.0-0.1 Comprehensive metabolic panel - 01/27/19 06:23 Serum or plasma sodium measurement (moles/volume) 131 mmol/L 135-145 Serum or plasma potassium measurement (moles/volume) 3.3 mmol/L 3.6-5.0 Serum or plasma chloride measurement (moles/volume) 98 mmol/L 98-107 Carbon dioxide 22 mmol/L 21-32 Serum or plasma anion gap determination (moles/volume) 11 mmol/L 5-14 Serum or plasma urea nitrogen measurement (mass/volume ) 19 mg/dL 7-18 Serum or plasma creatinine measurement (mass/volume) 0.57 mg/dL 0.60-1.30 Serum or plasma urea nitrogen/creatinine mass ratio 33 NRG Serum or plasma creatinine measurement w ith calculation of estimated glomerular filtration rate > NRG Serum or plasma glucose measurement (mass/volume) 113 mg/dL 70-105 Serum or plasma calcium measurement (mass/volume) 8.5 mg/dL 8.5-10.1 Serum or plasma total bilirubin measurement (mass/volu me) 0.6 mg/dL 0.1-1.0 Serum or plasma alkaline phosphatase nicolasa surement (enzymatic activity/volume) 31 U/L 40-136 Serum or plasma aspartate aminotransfera se measurement (enzymatic activity/volume) 16 U/L 5-34 Serum or plasma alanine aminotransferase measurement (enzymatic activity/volume) 8 U/L 0-55 Serum or plasma protein measurement (mass/volume) 5.9 g/dL 6.4-8.2 Serum or plasma albumin measurement (mass/volume) 3.6 g/dL 3.2-4.5 CALCIUM CORRECTED 8.8 mg/dL 8.5-10.1 Complete blood count (CBC) with automate d white blood cell (WBC) differential - 01/28/19 08:10 Blood leukocytes automated count (number/volume) 8.1 10*3/uL 4.3-11.0 Blood erythrocytes automated count (number/volume) 4.15 10*6/uL 4.35-5.85 Venous blood hemoglobin measurement (mass/volume) 13.8 g/dL 11.5-16.0 Blood hematocrit (volume fraction) 39 % 35-52 Automated erythrocyte mean corpuscular volume 94 [ foz_us] 80-99 Automated erythrocyte mean corpuscular h emoglobin (mass per erythrocyte) 33 pg 25-34 Automated erythrocyte mean corpuscular h emoglobin concentration measurement (mass/volume) 35 g/dL 32-36 Automated erythrocyte distribution width ratio 13. 0 % 10.0- 14.5 Automated blood platelet count (count/volume) 255 10*3/uL [...] 10*3 1.0-4.0 Blood monocytes automated count (number/volume) 1. 1 10*3 0.0-1.0 Automated eosinophil count 0.1 10*3/uL 0 .0-0.3 Automated blood basophil count (count/volume) 0.0 10*3/uL 0.0-0.1 Comprehensive metabolic panel - 01/28/19 08:10 Serum or plasma sodium measurement (moles/volume) 126 mmol/L 135-145 Serum or plasma potassium measurement (moles/volume) 3.0 mmol/L 3.6-5.0 Serum or plasma chloride measurement (moles/volume) 94 mmol/L 98-107 Carbon dioxide 21 mmol/L 21-32 Serum or plasma anion gap determination (moles/volume) 11 mmol/L 5-14 Serum or plasma urea nitrogen measurement (mass/volume ) 17 mg/dL 7-18 Serum or plasma creatinine measurement (mass/volume) 0.57 mg/dL 0.60-1.30 Serum or plasma urea nitrogen/creatinine mass ratio 30 NRG Serum or plasma creatinine measurement w ith calculation of estimated glomerular filtration rate > NRG Serum or plasma glucose measurement (mass/volume) 147 mg/dL 70-105 Serum or plasma calcium measurement (mass/volume) 8.4 mg/dL 8.5-10.1 Serum or plasma total bilirubin measurement (mass/volu me) 0.5 mg/dL 0.1-1.0 Serum or plasma alkaline phosphatase nicolasa surement (enzymatic activity/volume) 32 U/L 40-136 Serum or plasma aspartate aminotransfera se measurement (enzymatic activity/volume) 13 U/L 5-34 Serum or plasma alanine aminotransferase measurement (enzymatic activity/volume) 7 U/L 0-55 Serum or plasma protein measurement (mass/volume) 5.8 g/dL 6.4-8.2 Serum or plasma albumin measurement (mass/volume) 3.7 g/dL 3.2-4.5 CALCIUM CORRECTED 8.6 mg/dL 8.5-10.1 Serum or plasma troponin i.cardiac measu rement (mass/volume) - 01/28/19 08:10 Serum or plasma troponin i.cardiac measurement (mass/v olume) < ng/mL <0.028 Serum or plasma lithium measurement (mol es/volume) - 01/28/19 08:10 BNP level 255.5 pg/mL <100.0 Activated partial thromboplastin time (a PTT) in platelet poor plasma bycoagulation assay - 01/28/19 10:20 Activated partial thromboplastin time (a PTT) in platelet poor plasma bycoagulation assay 28 s 24-35 Activated partial thromboplastin time (a PTT) in platelet poor plasma bycoagulation assay - 01/28/19 15:03 Activated partial thromboplastin time (a PTT) in platelet poor plasma bycoagulation assay 89 s 24-35 Activated partial thromboplastin time (a PTT) in platelet poor plasma bycoagulation assay - 01/28/19 22:04 Activated partial thromboplastin time (a PTT) in platelet poor plasma bycoagulation assay 108 s 24-35 Complete blood count (CBC) with automate d white blood cell (WBC) differential - 01/29/19 06:16 Blood leukocytes automated count (number/volume) 9.5 10*3/uL 4.3-11.0 Blood erythrocytes automated count (number/volume) 3.96 10*6/uL 4.35-5.85 Venous blood hemoglobin measurement (mass/volume) 13.1 g/dL 11.5-16.0 Blood hematocrit (volume fraction) 37 % 35-52 Automated erythrocyte mean corpuscular volume 94 [ foz_us] 80-99 Automated erythrocyte mean corpuscular h emoglobin (mass per erythrocyte) 33 pg 25-34 Automated erythrocyte mean corpuscular h emoglobin concentration measurement (mass/volume) 35 g/dL 32-36 Automated erythrocyte distribution width ratio 12. 5 % 10.0- 14.5 Automated blood platelet count (count/volume) 233 10*3/uL [...] 10*3 1.0-4.0 Blood monocytes automated count (number/volume) 1. 2 10*3 0.0-1.0 Automated eosinophil count 0.1 10*3/uL 0 .0-0.3 Automated blood basophil count (count/volume) 0.0 10*3/uL 0.0-0.1 Comprehensive metabolic panel - 01/29/19 06:16 Serum or plasma sodium measurement (moles/volume) 125 mmol/L 135-145 Serum or plasma potassium measurement (moles/volume) 3.8 mmol/L 3.6-5.0 Serum or plasma chloride measurement (moles/volume) 96 mmol/L 98-107 Carbon dioxide 23 mmol/L 21-32 Serum or plasma anion gap determination (moles/volume) 6 mmol/L 5-14 Serum or plasma urea nitrogen measurement (mass/volume ) 17 mg/dL 7-18 Serum or plasma creatinine measurement (mass/volume) 0.57 mg/dL 0.60-1.30 Serum or plasma urea nitrogen/creatinine mass ratio 30 NRG Serum or plasma creatinine measurement w ith calculation of estimated glomerular filtration rate > NRG Serum or plasma glucose measurement (mass/volume) 138 mg/dL 70-105 Serum or plasma calcium measurement (mass/volume) 8.4 mg/dL 8.5-10.1 Serum or plasma total bilirubin measurement (mass/volu me) 0.4 mg/dL 0.1-1.0 Serum or plasma alkaline phosphatase nicolasa surement (enzymatic activity/volume) 33 U/L 40-136 Serum or plasma aspartate aminotransfera se measurement (enzymatic activity/volume) 13 U/L 5-34 Serum or plasma alanine aminotransferase measurement (enzymatic activity/volume) 7 U/L 0-55 Serum or plasma protein measurement (mass/volume) 5.7 g/dL 6.4-8.2 Serum or plasma albumin measurement (mass/volume) 3.6 g/dL 3.2-4.5 CALCIUM CORRECTED 8.7 mg/dL 8.5-10.1 Activated partial thromboplastin time (a PTT) in platelet poor plasma bycoagulation assay - 01/29/19 22:02 Activated partial thromboplastin time (a PTT) in platelet poor plasma bycoagulation assay 120 s 24-35 Automated blood complete blood count (he mogram) panel - 01/30/19 06:00 Blood leukocytes automated count (number/volume) 9.3 10*3/uL 4.3-11.0 Blood erythrocytes automated count (number/volume) 3.71 10*6/uL 4.35-5.85 Venous blood hemoglobin measurement (mass/volume) 12.3 g/dL 11.5-16.0 Blood hematocrit (volume fraction) 35 % 35-52 Automated erythrocyte mean corpuscular volume 94 [ foz_us] 80-99 Automated erythrocyte mean corpuscular h emoglobin (mass per erythrocyte) 33 pg 25-34 Automated erythrocyte mean corpuscular h emoglobin concentration measurement (mass/volume) 35 g/dL 32-36 Automated erythrocyte distribution width ratio 13. 1 % 10.0- 14.5 Automated blood platelet count (count/volume) 244 10*3/uL 130-400 Automated blood platelet mean volume measurement 10.2 [foz_us] 7.4-10.4 Activated partial thromboplastin time (a PTT) in platelet poor plasma bycoagulation assay - 01/30/19 06:00 Activated partial thromboplastin time (a PTT) in platelet poor plasma bycoagulation assay 126 s 24-35 Comprehensive metabolic panel - 01/30/19 06:00 Serum or plasma sodium measurement (moles/volume) 129 mmol/L 135-145 Serum or plasma potassium measurement (moles/volume) 3.9 mmol/L 3.6-5.0 Serum or plasma chloride measurement (moles/volume) 95 mmol/L 98-107 Carbon dioxide 25 mmol/L 21-32 Serum or plasma anion gap determination (moles/volume) 9 mmol/L 5-14 Serum or plasma urea nitrogen measurement (mass/volume ) 20 mg/dL 7-18 Serum or plasma creatinine measurement (mass/volume) 0.57 mg/dL 0.60-1.30 Serum or plasma urea nitrogen/creatinine mass ratio 35 NRG Serum or plasma creatinine measurement w ith calculation of estimated glomerular filtration rate > NRG Serum or plasma glucose measurement (mass/volume) 109 mg/dL 70-105 Serum or plasma calcium measurement (mass/volume) 8.2 mg/dL 8.5-10.1 Serum or plasma total bilirubin measurement (mass/volu me) 0.3 mg/dL 0.1-1.0 Serum or plasma alkaline phosphatase nicolasa surement (enzymatic activity/volume) 28 U/L 40-136 Serum or plasma aspartate aminotransfera se measurement (enzymatic activity/volume) 12 U/L 5-34 Serum or plasma alanine aminotransferase measurement (enzymatic activity/volume) 6 U/L 0-55 Serum or plasma protein measurement (mass/volume) 5.3 g/dL 6.4-8.2 Serum or plasma albumin measurement (mass/volume) 3.4 g/dL 3.2-4.5 CALCIUM CORRECTED 8.7 mg/dL 8.5-10.1 Stool occult blood screen - 01/30/19 08: 00 Stool gastrointestinal hemoglobin detection POSITI VE NEGATIVE Complete blood count (CBC) with automate d white blood cell (WBC) differential - 01/30/19 14:39 Blood leukocytes automated count (number/volume) 8.0 10*3/uL 4.3-11.0 Blood erythrocytes automated count (number/volume) 3.70 10*6/uL 4.35-5.85 Venous blood hemoglobin measurement (mass/volume) 12.2 g/dL 11.5-16.0 Blood hematocrit (volume fraction) 35 % 35-52 Automated erythrocyte mean corpuscular volume 96 [ foz_us] 80-99 Automated erythrocyte mean corpuscular h emoglobin (mass per erythrocyte) 33 pg 25-34 Automated erythrocyte mean corpuscular h emoglobin concentration measurement (mass/volume) 35 g/dL 32-36 Automated erythrocyte distribution width ratio 13. 3 % 10.0- 14.5 Automated blood platelet count (count/volume) 226 10*3/uL [...] 10*3 1.0-4.0 Blood monocytes automated count (number/volume) 1. 1 10*3 0.0-1.0 Automated eosinophil count 0.1 10*3/uL 0 .0-0.3 Automated blood basophil count (count/volume) 0.0 10*3/uL 0.0-0.1 Activated partial thromboplastin time (a PTT) in platelet poor plasma bycoagulation assay - 01/30/19 14:39 Activated partial thromboplastin time (a PTT) in platelet poor plasma bycoagulation assay 67 s 24-35 Activated partial thromboplastin time (a PTT) in platelet poor plasma bycoagulation assay - 01/30/19 22:20 Activated partial thromboplastin time (a PTT) in platelet poor plasma bycoagulation assay 137 s 24-35 Complete blood count (CBC) with automate d white blood cell (WBC) differential - 01/31/19 05:55 Blood leukocytes automated count (number/volume) 6.8 10*3/uL 4.3-11.0 Blood erythrocytes automated count (number/volume) 3.62 10*6/uL 4.35-5.85 Venous blood hemoglobin measurement (mass/volume) 11.8 g/dL 11.5-16.0 Blood hematocrit (volume fraction) 35 % 35-52 Automated erythrocyte mean corpuscular volume 96 [ foz_us] 80-99 Automated erythrocyte mean corpuscular h emoglobin (mass per erythrocyte) 33 pg 25-34 Automated erythrocyte mean corpuscular h emoglobin concentration measurement (mass/volume) 34 g/dL 32-36 Automated erythrocyte distribution width ratio 13. 3 % 10.0- 14.5 Automated blood platelet count (count/volume) 224 10*3/uL [...] 10*3 1.0-4.0 Blood monocytes automated count (number/volume) 1. 0 10*3 0.0-1.0 Automated eosinophil count 0.2 10*3/uL 0 .0-0.3 Automated blood basophil count (count/volume) 0.0 10*3/uL 0.0-0.1 Comprehensive metabolic panel - 01/31/19 05:55 Serum or plasma sodium measurement (moles/volume) 130 mmol/L 135-145 Serum or plasma potassium measurement (moles/volume) 3.8 mmol/L 3.6-5.0 Serum or plasma chloride measurement (moles/volume) 99 mmol/L 98-107 Carbon dioxide 23 mmol/L 21-32 Serum or plasma anion gap determination (moles/volume) 8 mmol/L 5-14 Serum or plasma urea nitrogen measurement (mass/volume ) 12 mg/dL 7-18 Serum or plasma creatinine measurement (mass/volume) 0.59 mg/dL 0.60-1.30 Serum or plasma urea nitrogen/creatinine mass ratio 20 NRG Serum or plasma creatinine measurement w ith calculation of estimated glomerular filtration rate > NRG Serum or plasma glucose measurement (mass/volume) 95 mg/dL 70-105 Serum or plasma calcium measurement (mass/volume) 8.0 mg/dL 8.5-10.1 Serum or plasma total bilirubin measurement (mass/volu me) 0.3 mg/dL 0.1-1.0 Serum or plasma alkaline phosphatase nicolasa surement (enzymatic activity/volume) 28 U/L 40-136 Serum or plasma aspartate aminotransfera se measurement (enzymatic activity/volume) 12 U/L 5-34 Serum or plasma alanine aminotransferase measurement (enzymatic activity/volume) 6 U/L 0-55 Serum or plasma protein measurement (mass/volume) 4.9 g/dL 6.4-8.2 Serum or plasma albumin measurement (mass/volume) 3.1 g/dL 3.2-4.5 CALCIUM CORRECTED 8.7 mg/dL 8.5-10.1 Activated partial thromboplastin time (a PTT) in platelet poor plasma bycoagulation assay - 01/31/19 05:55 Activated partial thromboplastin time (a PTT) in platelet poor plasma bycoagulation assay 91 s 24-35 Activated partial thromboplastin time (a PTT) in platelet poor plasma bycoagulation assay - 01/31/19 12:30 Activated partial thromboplastin time (a PTT) in platelet poor plasma bycoagulation assay 55 s 24-35 Complete blood count (CBC) with automate d white blood cell (WBC) differential - 02/01/19 05:50 Blood leukocytes automated count (number/volume) 4.9 10*3/uL 4.3-11.0 Blood erythrocytes automated count (number/volume) 3.38 10*6/uL 4.35-5.85 Venous blood hemoglobin measurement (mass/volume) 11.3 g/dL 11.5-16.0 Blood hematocrit (volume fraction) 33 % 35-52 Automated erythrocyte mean corpuscular volume 97 [ foz_us] 80-99 Automated erythrocyte mean corpuscular h emoglobin (mass per erythrocyte) 33 pg 25-34 Automated erythrocyte mean corpuscular h emoglobin concentration measurement (mass/volume) 35 g/dL 32-36 Automated erythrocyte distribution width ratio 13. 9 % 10.0- 14.5 Automated blood platelet count (count/volume) 250 10*3/uL 130-400 Automated blood platelet mean volume measurement 10.0 [foz_us] 7.4-10.4 Automated blood neutrophils/100 leukocytes 63 % 42-75 Automated blood lymphocytes/100 leukocytes 18 % 12-44 Blood monocytes/100 leukocytes 14 % 0-12 Automated blood eosinophils/100 leukocytes 4 % 0-10 Automated blood basophils/100 leukocytes 1 % 0-10 Blood neutrophils automated count (number/volume) 3.1 10*3 1.8-7.8 Blood lymphocytes automated count (number/volume) 0.9 10*3 1.0-4.0 Blood monocytes automated count (number/volume) 0. 7 10*3 0.0-1.0 Automated eosinophil count 0.2 10*3/uL 0 .0-0.3 Automated blood basophil count (count/volume) 0.0 10*3/uL 0.0-0.1 Comprehensive metabolic panel - 02/01/19 05:50 Serum or plasma sodium measurement (moles/volume) 135 mmol/L 135-145 Serum or plasma potassium measurement (moles/volume) 3.9 mmol/L 3.6-5.0 Serum or plasma chloride measurement (moles/volume) 102 mmol/L 98-107 Carbon dioxide 25 mmol/L 21-32 Serum or plasma anion gap determination (moles/volume) 8 mmol/L 5-14 Serum or plasma urea nitrogen measurement (mass/volume ) 7 mg/dL 7-18 Serum or plasma creatinine measurement (mass/volume) 0.63 mg/dL 0.60-1.30 Serum or plasma urea nitrogen/creatinine mass ratio 11 NRG Serum or plasma creatinine measurement w ith calculation of estimated glomerular filtration rate > NRG Serum or plasma glucose measurement (mass/volume) 92 mg/dL 70-105 Serum or plasma calcium measurement (mass/volume) 8.3 mg/dL 8.5-10.1 Serum or plasma total bilirubin measurement (mass/volu me) 0.4 mg/dL 0.1-1.0 Serum or plasma alkaline phosphatase nicolasa surement (enzymatic activity/volume) 31 U/L 40-136 Serum or plasma aspartate aminotransfera se measurement (enzymatic activity/volume) 14 U/L 5-34 Serum or plasma alanine aminotransferase measurement (enzymatic activity/volume) 8 U/L 0-55 Serum or plasma protein measurement (mass/volume) 5.0 g/dL 6.4-8.2 Serum or plasma albumin measurement (mass/volume) 3.2 g/dL 3.2-4.5 CALCIUM CORRECTED 8.9 mg/dL 8.5-10.1 Automated blood complete blood count (he mogram) panel - 02/05/19 08:00 Blood leukocytes automated count (number/volume) 8.4 10*3/uL 4.3-11.0 Blood erythrocytes automated count (number/volume) 3.88 10*6/uL 4.35-5.85 Venous blood hemoglobin measurement (mass/volume) 12.7 g/dL 11.5-16.0 Blood hematocrit (volume fraction) 38 % 35-52 Automated erythrocyte mean corpuscular volume 97 [ foz_us] 80-99 Automated erythrocyte mean corpuscular h emoglobin (mass per erythrocyte) 33 pg 25-34 Automated erythrocyte mean corpuscular h emoglobin concentration measurement (mass/volume) 34 g/dL 32-36 Automated erythrocyte distribution width ratio 14. 1 % 10.0- 14.5 Automated blood platelet count (count/volume) 315 10*3/uL 130-400 Automated blood platelet mean volume measurement 9.5 [foz_us] 7.4-10.4 Whole blood basic metabolic panel - 01/12 05/01 08:00 Serum or plasma sodium measurement (moles/volume) 135 mmol/L 135-145 Serum or plasma potassium measurement (moles/volume) 3.8 mmol/L 3.6-5.0 Serum or plasma chloride measurement (moles/volume) 102 mmol/L 98-107 Carbon dioxide 26 mmol/L 21-32 Serum or plasma anion gap determination (moles/volume) 7 mmol/L 5-14 Serum or plasma urea nitrogen measurement (mass/volume ) 6 mg/dL 7-18 Serum or plasma creatinine measurement (mass/volume) 0.61 mg/dL 0.60-1.30 Serum or plasma urea nitrogen/creatinine mass ratio 10 NRG Serum or plasma creatinine measurement w ith calculation of estimated glomerular filtration rate > NRG Serum or plasma glucose measurement (mass/volume) 97 mg/dL 70-105 Serum or plasma calcium measurement (mass/volume) 8.6 mg/dL 8.5-10.1 Complete blood count (CBC) with automate d white blood cell (WBC) differential - 03/16/20 08:15 Blood leukocytes automated count (number/volume) 5.6 10*3/uL 4.3-11.0 Blood erythrocytes automated count (number/volume) 4.37 10*6/uL 4.35-5.85 Venous blood hemoglobin measurement (mass/volume) 14.5 g/dL 11.5-16.0 Blood hematocrit (volume fraction) 42 % 35-52 Automated erythrocyte mean corpuscular volume 97 [ foz_us] 80-99 Automated erythrocyte mean corpuscular h emoglobin (mass per erythrocyte) 33 pg 25-34 Automated erythrocyte mean corpuscular h emoglobin concentration measurement (mass/volume) 34 g/dL 32-36 Automated erythrocyte distribution width ratio 13. 7 % 10.0- 14.5 Automated blood platelet count (count/volume) 258 10*3/uL 130-400 Automated blood platelet mean volume measurement 9.1 [foz_us] 7.4-10.4 Automated blood neutrophils/100 leukocytes 61 % 42-75 Automated blood lymphocytes/100 leukocytes 27 % 12-44 Blood monocytes/100 leukocytes 10 % 0-12 Automated blood eosinophils/100 leukocytes 2 % 0-10 Automated blood basophils/100 leukocytes 1 % 0-10 Blood neutrophils automated count (number/volume) 3.4 10*3 1.8-7.8 Blood lymphocytes automated count (number/volume) 1.5 10*3 1.0-4.0 Blood monocytes automated count (number/volume) 0. 6 10*3 0.0-1.0 Automated eosinophil count 0.1 10*3/uL 0 .0-0.3 Automated blood basophil count (count/volume) 0.1 10*3/uL 0.0-0.1 Comprehensive metabolic panel - 03/16/20 08:15 Serum or plasma sodium measurement (moles/volume) 134 mmol/L 135-145 Serum or plasma potassium measurement (moles/volume) 3.8 mmol/L 3.6-5.0 Serum or plasma chloride measurement (moles/volume) 99 mmol/L 98-107 Carbon dioxide 24 mmol/L 21-32 Serum or plasma anion gap determination (moles/volume) 11 mmol/L 5-14 Serum or plasma urea nitrogen measurement (mass/volume ) 9 mg/dL 7-18 Serum or plasma creatinine measurement (mass/volume) 0.74 mg/dL 0.60-1.30 Serum or plasma urea nitrogen/creatinine mass ratio 12 NRG Serum or plasma creatinine measurement w ith calculation of estimated glomerular filtration rate > NRG Serum or plasma glucose measurement (mass/volume) 122 mg/dL 70-105 Serum or plasma calcium measurement (mass/volume) 9.4 mg/dL 8.5-10.1 Serum or plasma total bilirubin measurement (mass/volu me) 0.9 mg/dL 0.1-1.0 Serum or plasma alkaline phosphatase nicolasa surement (enzymatic activity/volume) 44 U/L 40-136 Serum or plasma aspartate aminotransfera se measurement (enzymatic activity/volume) 15 U/L 5-34 Serum or plasma alanine aminotransferase measurement (enzymatic activity/volume) 9 U/L 0-55 Serum or plasma protein measurement (mass/volume) 7.2 g/dL 6.4-8.2 Serum or plasma albumin measurement (mass/volume) 4.6 g/dL 3.2-4.5 Serum or plasma troponin i.cardiac measu rement (mass/volume) - 03/16/20 08:15 Serum or plasma troponin i.cardiac measurement (mass/v olume) < ng/mL <0.028 Serum or plasma lithium measurement (mol es/volume) - 03/16/20 08:15 BNP PT 54.5 pg/mL <100.0 Bacterial urine culture - 03/16/20 09:41 Bacterial urine culture [id number] NRG COLONY COUNT >100,000/ML NRG RAPID ID PRELIM RAPID ID TEST AT [facility] 03/17 10:30 NRG ID CONFIRMATION RML CONFIRMED ID 03/17 11:05 NRG Complete urinalysis with reflex to cultu re - 03/16/20 09:41 Urine color determination YELLOW NRG Urine clarity determination CLEAR NR G Urine pH measurement by test strip 7.5 5-9 Specific gravity of urine by test strip 1.015 1.016-1.022 Urine protein assay by test strip, semi-quantitative NEGATIVE NEGATIVE Urine glucose detection by automated test strip NE GATIVE NEGATIVE Erythrocytes detection in urine sediment by light micr oscopy TRACE-L NEGATIVE Urine ketones detection by automated test strip NE GATIVE NEGATIVE Urine nitrite detection by test strip NEGATIVE NEGATIVE Urine total bilirubin detection by test strip NEGA TIVE NEGATIVE Urine urobilinogen measurement by automated test strip (mass/volume) 0.2 mg/dL < = 1.0 Urine leukocyte esterase detection by dipstick 2+ NEGATIVE Automated urine sediment erythrocyte cou nt by microscopy (number/high power field) NONE NRG Automated urine sediment leukocyte count by microscopy (number/high power field) [HPF] NRG Bacteria detection in urine sediment by light microsco py LARGE NRG Crystals detection in urine sediment by light microsco py NONE NRG Casts detection in urine sediment by light microscopy NONE NRG Mucus detection in urine sediment by light microscopy NEGATIVE NRG Complete urinalysis with reflex to culture YES NRG Encounters ACCT No. Visit Date/Time Discharge Status Pt. Type Provider Facility Loc./Unit Complaint [id number] 03/24/2020 11:00:00 23:59:59 CLS Preadmit MECCA FRANCIS [facility] CARD ATRIAL FLUTTER,SYNCOPE, OCCLUSION STENOSIS ART [id number] 03/24/2020 10:56:00 23:59:59 CLS Outpatient RAVI BROWNLEE FACC, AKHIL HADLEY CC DS [facility] CATH DIZZINESS,S OB,NEAR SYNCOPE,FATIGUE,ATRIAL FLUTTER [id number] 03/16/2020 08:08:00 11:21:00 DIS Emergency BAY NATARAJAN MD [facility] ER NOSE BLEED [id number] 01/28/2020 16:42:00 23:59:59 CLS Preadmit LORE POWELL DO [facility] REHAB UNSTEADY GAIT [id number] 09/09/2019 10:00:00 23:59:59 CLS Outpatient LORE POWELL DO [facility] RAD DIFFICULITY IN SWALLOWING [id number] 02/01/2019 08:24:00 09:33:00 DIS Inpatient LORE POWELL DO [facility] 4TH SWB,WEAKNESS,GA IT EXERCISE [id number] 01/23/2019 19:04:00 08:15:00 DIS Inpatient LORE POWELL DO [facility] 4TH SMALL BOWEL OBS TRUCTION [id number] 09/07/2018 11:12:00 23:59:59 CLS Outpatient LORE POWELL DO [facility] RAD RIGHT HAND AND BACK THUMB PAIN AND NUMBNESS [id number] 07/18/2018 17:37:00 23:59:59 CLS Outpatient LORE POWELL DO [facility] RAD LOWER BACK PAIN [id number] 06/30/2018 17:53:00 08/18/2 018 23:59:59 CLS Outpatient GELLENDER DO, LORE A [facility] MLF C DIFF/STOOL CU LTURE [id number] 05/19/2018 20:13:00 018 23:59:59 CLS Outpatient LORE POWELL DO [facility] MLF [id number] 04/18/2018 16:54:00 018 23:59:59 CLS Outpatient LORE POWELL DO [facility] RAD FX RIGHT 5TH ME TATARSAL [id number] 03/30/2018 11:11:00 018 23:59:59 CLS Outpatient LORE POWELL DO [facility] RAD DIARRHEA, FX OF 5TH RIGHT METATARSAL [id number] 03/20/2018 07:42:00 018 23:59:59 CLS Outpatient MECCA FRANCIS [facility] CARD I48.0 PAF [id number] 03/08/2018 16:17:00 018 23:59:59 CLS Outpatient LOER POWELL DO [facility] RAD FX OF 5TH RIGHT METATARSAL [id number] 02/11/2018 12:22:00 018 15:55:00 DIS Inpatient CAVAZOS JOVANI V [facility] ICU ATRIAL TACHYCARDIA [id number] 01/11/2018 16:57:00 018 23:59:59 CLS Outpatient LORE POWELL DO [facility] LAB URINE FREQUENCY AT NIGHT [id number] 12/21/2017 16:23:00 018 23:59:59 CLS Outpatient LORE POWELL DO [facility] LAB N39.0 [id number] 08/21/2017 16:39:00 017 23:59:59 CLS Outpatient LORE POWELL DO [facility] RAD VAGINAL BLEEDIN G [id number] 12/22/2016 15:32:00 017 17:35:00 DIS Emergency DESTINY KASPER [facility] ER CONGESTION;COUGH;WEAKNE SS [id number] 10/20/2016 10:33:00 016 16:00:00 DIS Outpatient PAKO CARTER MD [facility] WOUNDCARE [id number] 09/05/2016 11:05:00 15:15:00 DIS Inpatient ANDRE MARTÍNEZ LORE Perez [facility] 4TH CYST WITH ABCES S [id number] 12/23/2014 10:19:00 015 23:59:59 CLS Outpatient PAPABLAIR LORE MARTÍNEZ [facility] RAD SCREENING [id number] 12/02/2013 14:28:00 014 23:59:59 CLS Outpatient MEDKALA LORE MARTÍNEZ [facility] RAD SCREENING [id number] 06/28/2018 00:00:00 Document Registration [id number] 12/23/2014 10:20:00 Document Registration [id number] 12/23/2014 10:19:00 Document Registration [id number] 09/09/2011 11:04:00 Document Registration [id number] 07/22/2010 10:24:00 Document Registration
[2020-04-12 06:21] LABS: BILIRUBIN,URINE NEGATIVE (NEGATIVE); COLOR,URINE YELLOW; GLUCOSE, URINE (UA) NEGATIVE (NEGATIVE); KETONES,URINE NEGATIVE (NEGATIVE); LEUKOCYTE ESTERASE ,URINE 3+ (NEGATIVE); NITRITE,URINE POSITIVE (NEGATIVE); PROTEIN,URINE TRACE (NEGATIVE)
[2020-04-12 06:31] LABS: BACTERIA,URINE LARGE /HPF; CLARITY,URINE CLOUDY; SQUAMOUS EPITHELIAL CELL,UR RARE /HPF; WBC,URINE >100 /HPF
--- NOTE | 2020-04-12 06:39 | ED Abdominal Pain ---
General Chief Complaint: Abdominal/GI Problems Stated Complaint: L BACK PAIN Nursing Triage Note: PAIN STARTED THIS AM IN RIGHT LOWER QUADRENT THAT WRAPS AROUND TO HER LOWER BACK. HAS NOT TAKEN ANYTHING FOR PAIN THIS AM. LAST BM WAS YESTERDAY AM, VERBALIZES REGULARITY WITH HER BOWELS. STATES SHE TYPICALLY IS UP EVERY HOUR TO URINATE THROUGH THE NIGHT AND THAT THIS IS NORMAL FOR HER. Sepsis Screen: No Definite Risk Source of Information: Patient, Old Records Exam Limitations: No Limitations History of Present Illness Date Seen by Provider: April 12, 2020 Time Seen by Provider: 06:01 Initial Comments This delightful 89-year-old woman presents to the emergency room with complaints of right-sided abdominal pain that wraps around from her right upper quadrant and flank down to the right groin. This was of gradual onset through the night. She is not in obvious distress on arrival. She reports frequent urination, approximately every hour. She has not noticed any changes with the appearance or odor of her urine. Review of chart notes that she has a history of kidney stones on recent CT imaging without ureteral involvement. She also has history of urinary tract infection and culture results were reviewed. She is afebrile and vital signs are normal. She is on Eliquis for stroke prophylaxis in atrial fibrillation. Dr. Powell is her primary care provider. Denies nausea, vomiting, diarrhea, or constipation. Allergies and Home Medications Allergies Coded Allergies: NKANo Known Allergies (Unverified Allergy, Mild, 09/23/09) morphine (Verified Adverse Reaction, Unknown, knocks her out, 03/16/20) Home Medications Acetaminophen 500 Mg Tablet, 500 MG PO 1400, (Reported) Acetaminophen 500 Mg Tablet, 1,000 MG PO HS, (Reported) Alprazolam 0.25 Mg Tablet, 0.25 MG PO BID, (Reported) Apixaban 5 Mg Tablet, 5 MG PO BID Prescribed by: LORE POWELL on 02/06/19 0826 Calcium Polycarbophil 625 Mg Tablet, 2 TAB PO DAILY, (Reported) Cefdinir 300 Mg Capsule, 300 MG PO BID Prescribed by: BELA KING on 04/12/20 0746 Ciprofloxacin HCl 500 Mg Tablet, 500 MG PO BID, (Reported) Elderberry Fruit and Flower 1 Each Capsule, 1 EACH PO DAILY, (Reported) Ferrous Sulfate 325 Mg Tablet, 325 MG PO 1400, (Reported) Hydrocortisone 453.6 Gm Cream..g., TOP BID PRN for ITCHING, (Reported) Melatonin 3 Mg Tablet, 3 MG PO 1900, (Reported) Melatonin 5 Mg Tablet, 5 MG PO 2200, (Reported) Metoprolol Succinate 25 Mg Tab.er.24h, 12.5 MG PO BID, (Reported) TAKES 1/2 (25MG) TABLET Naproxen Sodium 220 Mg Tablet, 220 MG PO DAILY, (Reported) Omeprazole 20 Mg Tablet.dr, 20 MG PO DAILY, (Reported) Phenazopyridine HCl 100 Mg Tablet, 100 MG PO TID PRN for PAIN-BREAKTHROUGH Prescribed by: BELA KING on 04/12/20 0746 Patient Home Medication List Home Medication List Reviewed: Yes Review of Systems Review of Systems Constitutional: no symptoms reported EENTM: No Symptoms Reported Respiratory: No Symptoms Reported Cardiovascular: No Symptoms Reported Gastrointestinal: See HPI Genitourinary: See HPI Musculoskeletal: no symptoms reported Skin: no symptoms reported Psychiatric/Neurological: No Symptoms Reported Endocrine: No Symptoms Reported Hematologic/Lymphatic: No Symptoms Reported Past [id number]-[id number] Hx Past Med/Social Hx: Reviewed and Corrections made Patient Social History Alcohol Use: Denies Use Recreational Drug Use: No Recent Foreign Travel: No Contact w/Someone Who Travel: No Recent Infectious Disease Expo: No Recent Hopitalizations: Yes (CYST/ABSCESS REMOVAL 08/2016) Physical Abuse: No Sexual Abuse: No Mistreated: No Fear: No Seasonal Allergies Seasonal Allergies: No Past Medical History Surgeries: Yes (abscess treatment) Abdominal, Eye Surgery, Tonsillectomy Respiratory: No Cardiac: Yes (atrial flutter) Atrial Fibrillation, Hypertension, Palpitations Neurological: No : No 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 Disorders: No 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00" Weight: 129lbs. 8.0oz. 58.967240gf; 21.00 BMI Method:Stated General Appearance: WD/WN, no apparent distress, thin HEENT: PERRL/EOMI, normal ENT inspection Neck: normal inspection Respiratory: lungs clear, normal breath sounds, no respiratory distress, no accessory muscle use Cardiovascular: regular rate, rhythm, no edema, no murmur Gastrointestinal: normal bowel sounds, soft, tenderness (throughout the right abdomen) Extremities: normal inspection, no pedal edema Back: CVA tenderness (R); No CVA tenderness (L) Neurologic/Psychiatric: soil tester II-XII nml as tested, no motor/sensory deficits, alert, normal mood/affect, oriented x 3 Skin: normal color, warm/dry Progress/Results/Core Measures Results/Orders Lab Results Laboratory Tests Test 04/12/20 06:10 Range/Units Urine Color YELLOW Urine Clarity CLOUDY Urine pH 6.0 5-9 Urine Specific [place] 1.010 L 1.016-1.022 Urine Protein TRACE H NEGATIVE Urine Glucose (UA) NEGATIVE NEGATIVE Urine Ketones NEGATIVE NEGATIVE Urine Nitrite POSITIVE H NEGATIVE Urine Bilirubin NEGATIVE NEGATIVE Urine Urobilinogen 0.2 < = 1.0 MG/DL Urine Leukocyte Esterase 3+ H NEGATIVE Urine RBC (Auto) 1+ H NEGATIVE Urine RBC 5-10 H /HPF Urine WBC >100 H /HPF Urine Squamous Epithelial Cells RARE /HPF Urine Crystals NONE /LPF Urine Bacteria LARGE H /HPF Urine Casts NONE /LPF Urine Mucus LARGE H /LPF Urine Culture Indicated YES My Orders Orders - BELA SILVEIRA MD Ua Culture If Indicated (04/12/20 06:01) Urine Culture (04/12/20 06:10) Ct Abd/Pelvis Wo(Kidney Stone) (04/12/20 06:33) Ceftriaxone For Im Use (Rocephin For Im (04/12/20 07:30) Lidocaine 1% Inj 20 Ml (Xylocaine 1% Inj (04/12/20 07:30) Phenazopyridine Tablet (Pyridium Tablet) (04/12/20 07:30) Acetaminophen Tablet (Tylenol Tablet) (04/12/20 07:30) Medications Given in ED Vital Signs/I&O 04/12/20 04/12/20 05:45 07:54 Temp 36.7 36.7 Pulse 75 80 Resp 20 20 B/P (MAP) 147/86 (106) 153/85 (106) Pulse Ox 97 98 Blood Pressure Mean: 106 Progress Progress Note #1: Time: 06:35 Progress Note Patient was seen and examined. She has tenderness in the right abdomen. UA demonstrated significant pyuria. We are obtaining a CT to evaluate for ureteral stone. Progress Note #2: Time: 08:[address] scan was reviewed by me and report reviewed. There were calcifications near the right renal pelvis, thought to be vascular in nature by the radiologist. However, because patient has pain in this region, I recommended that she have her CT and her recurrent urinary tract infections evaluated by a urologist. She may need additional workup to ensure this abnormality is not contributing to her problem. I'm also curious about the position of her pessary. It seems a bit high in relation to her bladder on both today's CT imaging and her prior CT. I have suggested they have the CT evaluated by Dr. Schmitz who manages her pessary. In the emergency room she was treated with Tylenol, Pyridium, and a Rocephin injection. Her prior urine culture showed a widely sensitive strain of Escherichia coli. Rocephin and Cefdinir should adequately treat this. Labs from earlier in the month were reviewed. Labs were not repeated today. CT scan suggested fecal retention. Patient states she has a normal bowel movement daily and does not feel constipated. I discussed the presence of diaphragmatic hernia with the patient as well. No action needs to be taken in regard to the diaphragmatic hernia from my perspective today. See discharge instructions. I discussed the above with the patient and her daughter in law, Latesha. Diagnostic Imaging Diagonstic Imaging: CT Plain Films/CT/US/NM/MRI: abdomen, pelvis Comments CT abdomen and pelvis viewed by me and report reviewed. See report below: NAME: MARY GALLEGO [employer] REC#: [id number] PT STATUS: REG ER : 1930 PHYSICIAN: BELA SILVEIRA MD ADMIT DATE: 04/12/20/ER Draft Date of Exam:04/12/20 CT ABD/PELVIS WO(KIDNEY STONE) PROCEDURE: CT urinary tract, rule out kidney stone. TECHNIQUE: Multiple contiguous axial images were obtained through the abdomen and pelvis without the use of intravenous contrast. Auto Exposure Controls were utilized during the CT exam to meet ALARA standards for radiation dose reduction. 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 There is herniation of a large portion of the stomach into the left lower hemithorax as well as portions of the splenic flexure of the colon and mesenteric fat. Some thickening of the gastroesophageal junction. No findings to suggest high degree obstruction. The unenhanced liver, spleen, pancreas, gallbladder and adrenal glands demonstrate no acute abnormality. Kidneys have a generally unremarkable appearance. Calcifications of the right renal pelvis likely vasculature. Ureters cannot be completely traced but without findings to suggest obstruction or ureteric calcification. There is mild severity of fecal retention of stool throughout the colon. No findings to suggest high degree of bowel obstruction. Surgical changes of the right lower quadrant with anastomotic suture line. No significant abdominal ascites and/or free air. Urinary bladder is slightly thick-walled but is also decompressed. Circular device at the level of the vagina. The abdominal aorta with mild wall calcification, nonaneurysmal. Osseous structures demonstrate scoliotic curvature of the thoracolumbar spine. Mild to moderately advanced degenerative changes are present with disc space narrowing and hypertrophic facet arthropathy. No acute appearing compression deformity. IMPRESSION: 1. No definitive evidence for acute abnormality about the abdomen and/or pelvis on noncontrast imaging. If symptoms persist, follow-up imaging would be recommended. 2. Mild/moderate severity fecal retention of stool throughout the colon. Dictated on workstation # [id number] Dict: 04/12/20 0701 Trans: 04/12/20 0717 [facility] [id number] Interpreted by: GUILLERMO FRANK DO Departure Impression Primary Impression: Urinary tract infection Qualified Codes: N39.0 - Urinary tract infection, site not specified Additional Impression: Right sided abdominal pain Disposition: 01 HOME, SELF-CARE Condition: Improved Departure-Patient Inst. Decision time for Depature: 07:41 Referrals: LORE POWELL DO (PCP/Family) Primary Care Physician ALONZO SCHMITZ MD Patient Instructions: Urinary Tract Infection, Adult (DC) Add. Discharge Instructions: Drink plenty of clear liquids. Start your antibiotics by tomorrow morning and complete the entire course of antibiotics as prescribed. Follow-up with Dr. Powell by mid week and review urine culture results. Follow-up with Dr. Schmitz as soon as possible. Please have him review the CT images and evaluate the position of your pessary. I am suspicious the position of your pessary may be contributing to urinary tract infection and your urinary frequency. Please speak with Dr. Powell about a possible urology referral. You have had recurrent urinary tract infections and there are some calcifications near the right kidney that should be evaluated. Please have the urologist review your CT images and determine if any further evaluation is necessary. If you have an anomaly at or near the right kidney, this may be contributing to your infections. You may take Tylenol (acetaminophen) up to 1000 mg every 6 hours as needed for pain. Pyridium has also been prescribed to help numb the urinary tract. Pyridium may cause your urine to turn a reddish or orangeish color. This is normal. Please return to the emergency room if you have worsening symptoms or develop new symptoms such as fever, vomiting, etc. All discharge instructions reviewed with patient and/or family. Voiced understanding. Scripts Phenazopyridine HCl (Pyridium) 100 Mg Tablet 100 MG PO TID PRN for PAIN-BREAKTHROUGH, #10 TAB Prov: BELA SILVEIRA MD 04/12/20 Cefdinir (Cefdinir) 300 Mg Capsule 300 MG PO BID, #14 CAP Prov: BELA SILVEIRA MD 04/12/20 Copy Copies To 1: ALONZO SCHMITZ MD Copies To 2: LORE POWELL JOSHUA T MD April 12, 2020 06:39
--- NOTE | 2020-04-12 07:18 | Diagnostic Imaging Report ---
PROCEDURE: CT urinary tract, rule out kidney stone. TECHNIQUE: Multiple contiguous axial images were obtained through the abdomen and pelvis without the use of intravenous contrast. Auto Exposure Controls were utilized during the CT exam to meet ALARA standards for radiation dose reduction. 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 There is herniation of a large portion of the stomach into the left lower hemithorax as well as portions of the splenic flexure of the colon and mesenteric fat. Some thickening of the gastroesophageal junction. No findings to suggest high degree obstruction. The unenhanced liver, spleen, pancreas, gallbladder and adrenal glands demonstrate no acute abnormality. Kidneys have a generally unremarkable appearance. Calcifications of the right renal pelvis likely vasculature. Ureters cannot be completely traced but without findings to suggest obstruction or ureteric calcification. There is mild severity of fecal retention of stool throughout the colon. No findings to suggest high degree of bowel obstruction. Surgical changes of the right lower quadrant with anastomotic suture line. No significant abdominal ascites and/or free air. Urinary bladder is slightly thick-walled but is also decompressed. Circular device at the level of the vagina. The abdominal aorta with mild wall calcification, nonaneurysmal. Osseous structures demonstrate scoliotic curvature of the thoracolumbar spine. Mild to moderately advanced degenerative changes are present with disc space narrowing and hypertrophic facet arthropathy. No acute appearing compression deformity. IMPRESSION: 1. No definitive evidence for acute abnormality about the abdomen and/or pelvis on noncontrast imaging. If symptoms persist, follow-up imaging would be recommended. 2. Mild/moderate severity fecal retention of stool throughout the colon. Dictated by: Dictated on workstation # [id number]
[2020-04-12] MEDS ORDERED: PHENAZOPYRIDINE 100 MG (PYRIDIUM) TABLET PO ONE (07:30)
[2020-04-12] MEDS ORDERED: cefTRIAXone 1,000 MG/2.86 ml vial (IM ONLY) IM ONE (07:30)
[2020-04-12] MEDS ORDERED: ACETAMINOPHEN 500 MG TAB (TYLENOL) PO ONE (07:30)
[2020-04-12] MEDS ORDERED: LIDOCAINE 1% INJ 20 ML 20 ML VIAL INJ ONE (07:30)
[2020-04-12] MEDS ORDERED: PHEN-639 PO (07:46)
[2020-04-12] MEDS ORDERED: CEFD300C3 PO (07:46)
[2020-04-12 07:54] VITALS: BP 153/85
== END 2020-04-12 07:54 | disposition home or self-care (01) ==
LOC: EDUNIT# 05:39 → ER 05:42
DX: N39.0 Urinary tract infection, site not specified (principal); I10 Essential (primary) hypertension; I48.91 Unspecified atrial fibrillation; F41.9 Anxiety disorder, unspecified; Z88.5 Allergy status to narcotic agent; Z79.01 Long term (current) use of anticoagulants
CPT/HCPCS: 74176; 81000; 87077; 87088; 87186; 96372

== ENCOUNTER 2020-07-02 08:58 | Inpatient (IN) | payer MEDICARE ==
[~2020-07-02] VITALS: Ht 170.2 cm; Wt 64.9 kg
[2020-07-02] VITALS (10 sets, daily range): BP systolic 123–164; BP diastolic 76–96
[~2020-07-02 08:58] MED LIST changes: +CEFD300C3 PO; +PHEN-639 PO
[2020-07-02] MEDS ORDERED: fentaNYL INJECTION 100 MCG/2 ML AMP IVP STA ×2 (09:10→11:19)
[2020-07-02] MEDS ORDERED: ONDANSETRON 4 MG/2 ML (SDV) Z0FRAN IVP ONE (09:15)
[2020-07-02] MEDS ORDERED: fentaNYL INJECTION 100 MCG/2 ML AMP ONE ×3 (09:16→14:06)
[2020-07-02] MEDS ORDERED: ONDANSETRON 4 MG/2 ML (SDV) Z0FRAN ONE ×2 (09:17→14:06)
--- NOTE | 2020-07-02 09:30 | NUR ---
CALLED AND UPDATED SHRAVAN PER PATIENT REQUEST WILL UP DATE REST OF FAMILY.
--- NOTE | 2020-07-02 09:43 | ED Fall/Injury ---
General Chief Complaint: Trauma-Non Activation Stated Complaint: FALL Nursing Triage Note: TO ED PER EMS PATIENT REPORTS SHE BECAME DIZZY AND WAS TRYING TO GET TO CHAIR THINKS SHE PASSED OUT AND FELL. C/O L HIP PAIN WITH ROTATION NOTED. HAS CHRONIC NECK PAIN. 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 States after taking her morning meds this AM around 0730, she became very dizzy, so she tried to walk to her chair to sit down using her walker but lost consciousness before she could get to her chair and fall on the ground. This was an unwitnessed fall. She did not hit anything on her way down and does not believe she hit her head on anything. She does complain of neck pain but states this is chronic and in fact she had a massage therapy appointment today for her neck. She c/o L hip pain and nausea at this time. She has Hx of paroxysmal Afib w/ RVR and TIA and is currently on Eliquis for Afib and sees Dr. Baron for cardiology. Pt states for the past year she has been having dizziness which has gotten worse in the past 2 months. States she had a fall earlier this month as well where she broke her nose. Pt lives alone at home. No further complaints at this time. Occurred: this morning Severity: moderate Injuries/Pain Location: pelvis, lower extremity Context: other (dizzy, syncope) Loss of Consciousness: brief (seconds) Modifying Factors: Improves With Immobilization; Worse With Movement; Improves With Pain Medication Associated Symptoms (Fall): No Chest Pain, No Confusion; Dizziness; No Headache; Nausea/Vomiting; No Trouble Walking, No Vision Changes (MICKIE BURGER) Occurred: this morning Severity: moderate Injuries/Pain Location: pelvis, lower extremity (left-sided) Associated Symptoms (Fall): No Muscle Spasms; Neck Pain (chronic); No Shortness of Air (KAREEM PINTO MD) Allergies and Home Medications Allergies Coded Allergies: NKANo Known Allergies (Unverified Allergy, Mild, 09/23/09) amoxicillin (Verified Allergy, Unknown, 07/02/20) clavulanic acid (Verified Allergy, Unknown, 07/02/20) morphine (Verified Adverse Reaction, Unknown, knocks her out, 03/16/20) Home Medications Acetaminophen 500 Mg Tablet, 500 MG PO 1400, (Reported) Acetaminophen 500 Mg Tablet, 1,000 MG PO HS, (Reported) Alprazolam 0.25 Mg Tablet, 0.25 MG PO BID, (Reported) Apixaban 5 Mg Tablet, 5 MG PO BID Prescribed by: LORE POWELL on 02/06/19 0826 Calcium Polycarbophil 625 Mg Tablet, 2 TAB PO DAILY, (Reported) Cefdinir 300 Mg Capsule, 300 MG PO BID Prescribed by: BELA KING on 04/12/20 0746 Ciprofloxacin HCl 500 Mg Tablet, 500 MG PO BID, (Reported) Elderberry Fruit and Flower 1 Each Capsule, 1 EACH PO DAILY, (Reported) Ferrous Sulfate 325 Mg Tablet, 325 MG PO 1400, (Reported) Hydrocortisone 453.6 Gm Cream..g., TOP BID PRN for ITCHING, (Reported) Melatonin 3 Mg Tablet, 3 MG PO 1900, (Reported) Melatonin 5 Mg Tablet, 5 MG PO 2200, (Reported) Metoprolol Succinate 25 Mg Tab.er.24h, 12.5 MG PO BID, (Reported) TAKES 1/2 (25MG) TABLET Naproxen Sodium 220 Mg Tablet, 220 MG PO DAILY, (Reported) Omeprazole 20 Mg Tablet.dr, 20 MG PO DAILY, (Reported) Phenazopyridine HCl 100 Mg Tablet, 100 MG PO TID PRN for PAIN-BREAKTHROUGH Prescribed by: BELA KING on 04/12/20 0746 Patient Home Medication List Home Medication List Reviewed: Yes (KAREEM PINTO MD) Review of Systems Review of Systems Constitutional: No chills; dizziness; No fever, No weakness Eyes: No Symptoms Reported Ears, Nose, Mouth, Throat: no symptoms reported Respiratory: No cough, No short of breath Cardiovascular: No chest pain, No edema, No palpitations Gastrointestinal: no symptoms reported Musculoskeletal: other (L hip pain) Skin: no symptoms reported (MICKIE SHANNON) All Other Systems Reviewed Negative Unless Noted: Yes (KAREEM PINTO MD) Past Awbaraj-Znmvhv-Pazqkg Hx Past Med/Social Hx: Reviewed Nursing Past Med/Soc Hx (KAREEM PINTO MD) Patient Social History Alcohol Use: Denies Use Recreational Drug Use: No Smoking Status: Never a Smoker Recent Foreign Travel: No Contact w/Someone Who Travel: No Recent Infectious Disease Expo: No Recent Hopitalizations: Yes (CYST/ABSCESS REMOVAL 08/2016) (MICKIE SHANNON) Alcohol Use: Denies Use Recreational Drug Use: No Smoking Status: Never a Smoker (KAREEM PINTO MD) Seasonal Allergies Seasonal Allergies: No (MICKIE SHANNON) Past Medical History Surgeries: Yes (abscess treatment) Abdominal, Eye Surgery, Tonsillectomy Respiratory: No Cardiac: Yes (atrial flutter) Atrial Fibrillation, Hypertension, Palpitations Neurological: No 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 Genitourinary: Yes Kidney Stones Gastrointestinal: Yes Abdominal Hernia Musculoskeletal: Yes Arthritis Endocrine: Yes (prediabetic) HEENT: Yes Cataract Cancer: No Psychosocial: Yes Anxiety Integumentary: No Blood Disorders: No Adverse Reaction/Blood Tranf: No (MICKIE SHANNON [facility]) Family Medical History Reviewed Nursing Family Hx (KAREEM PINTO MD) Diabetes mellitus 19 MOTHER No Pertinent Family Hx (MICKIE SHANNON) Physical Exam Vital Signs Vital Signs - First Documented 07/02/20 07/02/20 09:01 09:30 Temp 36.1 Pulse 67 Resp 18 B/P (MAP) 146/64 (91) Pulse Ox 95 O2 Delivery Room Air O2 Flow Rate 2.00 (KAREEM PINTO MD) Vital Signs Capillary Refill : Less Than 3 Seconds ([facility]) Height, Weight, BMI Height: 5'5.00" Weight: 129lbs. 8.0oz. 58.034695bq; 20.00 BMI Method:Stated General Appearance: WD/WN, no apparent distress, other (pleasant, responding to questions appropriately) HEENT: PERRL/EOMI, normal ENT inspection, TMs normal, pharynx normal Neck: normal inspection, limited range of motion (by pain); No tender midline Cardiovascular: normal peripheral pulses, no edema, no gallop, no JVD, no murmur, other (occasional skipped beats) Respiratory: chest non-tender, lungs clear, normal breath sounds, no respiratory distress, no accessory muscle use Gastrointestinal: normal bowel sounds, non tender Extremities: other (L hip TTP, Externally rotated and shorter than R hip) Neurologic/Psychiatric: cell biology scientist II-XII nml as tested, alert, oriented x 3 Skin: normal color, warm/dry (ZAIRE SHANNONDARLENENICK [facility]) General Appearance: WD/WN, mild distress HEENT: PERRL/EOMI, TMs normal, pharynx normal Cardiovascular: no murmur, other (occasional skipped beats) Respiratory: lungs clear, normal breath sounds Gastrointestinal: normal bowel sounds, non tender Back: no CVA tenderness, no vertebral tenderness Extremities: no pedal edema, other (L hip TTP, Externally rotated and shorter than R hip) Neurologic/Psychiatric: alert, oriented x 3 Skin: normal color, warm/dry (KAREEM PINTO MD) Mc Coma Score Best Eye Response: (4) Open Spontaneously Best Verbal Response: (5) Oriented Best Motor Response: (6) Obeys Commands (KAREEM PINTO MD) Progress/Results/Core Measures Results/Orders Lab Results Laboratory Tests Test 07/02/20 09:05 Range/Units White Blood Count 6.5 4.3-11.0 10^3/uL Red Blood Count 3.77 L 4.35-5.85 10^6/uL Hemoglobin 12.4 11.5-16.0 G/DL Hematocrit 37 35-52 % Mean Corpuscular Volume 99 80-99 FL Mean Corpuscular Hemoglobin 33 25-34 PG Mean Corpuscular Hemoglobin Concent 33 32-36 G/DL Red Cell Distribution Width 13.8 10.0-14.5 % Platelet Count 251 130-400 10^3/uL Mean Platelet Volume 10.1 7.4-10.4 FL Neutrophils (%) (Auto) 56 42-75 % Lymphocytes (%) (Auto) 33 12-44 % Monocytes (%) (Auto) 9 0-12 % Eosinophils (%) (Auto) 2 0-10 % Basophils (%) (Auto) 1 0-10 % Neutrophils # (Auto) 3.7 1.8-7.8 X 10^3 Lymphocytes # (Auto) 2.1 1.0-4.0 X 10^3 Monocytes # (Auto) 0.6 0.0-1.0 X 10^3 Eosinophils # (Auto) 0.1 0.0-0.3 10^3/uL Basophils # (Auto) 0.0 0.0-0.1 10^3/uL Sodium Level 134 L 135-145 MMOL/L Potassium Level 3.7 3.6-5.0 MMOL/L Chloride Level 101 98-107 MMOL/L Carbon Dioxide Level 24 21-32 MMOL/L Anion Gap 9 5-14 MMOL/L Blood Urea Nitrogen 15 7-18 MG/DL Creatinine 0.73 0.60-1.30 MG/DL Estimat Glomerular Filtration Rate > 60 BUN/Creatinine Ratio 21 Glucose Level 131 H 70-105 MG/DL Calcium Level 8.7 8.5-10.1 MG/DL Corrected Calcium 8.6 8.5-10.1 MG/DL Total Bilirubin 0.5 0.1-1.0 MG/DL Aspartate Amino Transf (AST/SGOT) 11 5-34 U/L Alanine Aminotransferase (ALT/SGPT) 9 0-55 U/L Alkaline Phosphatase 54 40-136 U/L Total Protein 6.6 6.4-8.2 GM/DL Albumin 4.1 3.2-4.5 GM/DL (KAREEM PINTO MD) My Orders Orders - KAREEM PINTO MD Chest 1 View, Ap/Pa Only (07/02/20 09:10) Pelvis With Left Hip 2-3 Views (07/02/20 09:10) Ondansetron Injection (Zofran Injectio (07/02/20 09:15) Fentanyl Injection (Sublimaze Injection (07/02/20 09:10) Ekg Tracing (07/02/20 09:10) Monitor-Rhythm Ecg Trace Only (07/02/20 09:10) Cbc With Automated Diff (07/02/20 09:45) Comprehensive Metabolic Panel (07/02/20 09:45) Ct Head/Cervical Spine Wo (07/02/20 10:13) Fentanyl Injection (Sublimaze Injection (07/02/20 11:19) Lactated Ringers (Lr 1000 Ml Iv Solution (07/02/20 11:19) (KAREEM PINTO MD) Medications Given in ED Current Medications Medications Dose Ordered Sig/Meagan Route Start Time Stop Time Status Last Admin Dose Admin Ondansetron HCl 4 mg ONCE ONCE IVP 07/02/20 09:15 07/02/20 09:16 DC 07/02/20 09:22 4 MG (KAREEM PINTO MD) Vital Signs/I&O 07/02/20 07/02/20 09:01 09:30 Temp 36.1 Pulse 67 Resp 18 B/P (MAP) 146/64 (91) Pulse Ox 95 O2 Delivery Room Air Nasal Cannula O2 Flow Rate 2.00 (KAREEM PINTO MD) Blood Pressure Mean: 91 Progress Progress Note : Time: 09:01 Progress Note Seen and evaluated. Presentation concerning for hip fracture. Will image pelvis and consult Ortho environmental research scientist. Pt on Eliquis so we will order a H/N CT w/o contrast. Pt c/o pain and Nausea at this time so will order 50MCG of Fentanyl and 4mg of Zoftan. As pt reports she had a syncopal episode and has been dizzy, we will also check an EKG, CXR, and basic labs including CBC and CMP. will continue to monitor. @0930: Reevaluated pt. Pt has become very somnolent and has depressed RR and O2% of 88% on RA after pain meds, Placed pt on 2L/min of O2. O2 stat improved to 95% after O2 supplementation (MICKIE SHANNON [facility]) Progress Note : Progress Note I have seen and evaluated the patient and agree with above except as indicated. I have directed the plan of care. Patient is here after fall as described above. She thinks she may have passed out during that fall. Patient is on Eliquis. Denies head pain. Does have neck pain but states it's chronic and unchanged. Main complaint is the left hip pain. Physical exam as above with noted rotation externally and shortened on the left. Plan for labs, chest x-ray, pelvic and left hip x-ray, EKG and CTof the head and neck. Fentanyl 50 g IV ordered for continued pain control. She did receive 50 g of fentanyl IV by EMS and tolerated well. Patient did have sleepiness associated with repeat dosing of fentanyl but O2 sats improved after application of O2 via nasal cannula at 2 L/m. Monitor patient. 1113: I did discuss the case with Dr. Woodward. He accepts patient for admission, inpatient status pending surgery. 1131: I did discuss the case with Dr. Coker who will provide medical evaluation and clearance as well as Dr. Knutson. I did update the family including [id number] Latesha and son Jeffrey. Patient agrees to plan. Repeat fentanyl 50 g IV. Lord catheter to be placed on arrival to floor. Chest x-ray does have question of left lower lobe infiltrate versus atelectasis. Patient is afebrile and normal white count. I believe this is atelectasis. (KAREEM PINTO MD) Initial ECG Impression Date: Jul 02, 2020 Initial ECG Impression Time: 09:11 Initial ECG Rate: 84 Initial ECG Rhythm: Normal Sinus Initial ECG Comparisson: Unchanged (03/16/20) Comment sinus rhythm with normal axis. No evidence of ST elevation MS. Interpreted by me. (KAREEM PINTO MD) Diagnostic Imaging Diagonstic Imaging: CT Plain Films/CT/US/NM/MRI: c-spine, head Comments [facility] [place] NAME: MARY GALLEGO [facility] REC#: [id number] PT STATUS: REG ER : 1930 PHYSICIAN: KAREEM PINTO MD ADMIT DATE: 07/02/20/ER Draft Date of Exam:07/02/20 CT HEAD/CERVICAL SPINE WO PROCEDURE: CT head and CT cervical spine without contrast. TECHNIQUE: Multiple contiguous axial images were obtained through the brain and cervical spine without the use of intravenous contrast. Sagittal and coronal reformations through the cervical spine were then performed. Auto Exposure Controls were utilized during the CT exam to meet ALARA standards for radiation dose reduction. INDICATION: Trauma, fall. Correlation is made with prior CT from 03/16/2020. CT HEAD: Ventricles and sulci are consistent with the patient's age. Moderate periventricular hypodensity is noted consistent with senescent change. No sulcal effacement or midline shift is identified. No acute intra-axial or extra-axial hemorrhage is detected. Cisterns are patent. Visualized paranasal sinuses are clear. IMPRESSION: Senescent changes. No acute intracranial process is identified. CT cervical spine: Curvature and alignment of the cervical spine is normal. There is multilevel degenerative disc and facet disease. There is variable disc space narrowing and marginal spurring. Prevertebral tissues are within normal limits. No fractures are identified. Odontoid is intact. IMPRESSION: Cervical spondylosis. No acute bony abnormality is detected. Dictated on workstation # [id number] Dict: 07/02/20 1052 Trans: 07/02/20 1101 CAITLIN [id number] Interpreted by: DIANA DURHAM MD Electronically signed by: Diagonstic Imaging: Xray Plain Films/CT/US/NM/MRI: chest Comments [facility] [place] NAME: MAYCO GALLEGOHERB [facility] REC#: [id number] PT STATUS: REG ER : 1930 PHYSICIAN: KAREEM PINTO MD ADMIT DATE: 07/02/20/ER Signed Date of Exam:07/02/20 CHEST 1 VIEW, AP/PA ONLY Indication: Left hip fracture, preop Portable chest 10:06 AM There is a loop recorder projecting over the left lower chest. There is some consolidation present in the left lower lung. There is no effusion or pneumothorax. IMPRESSION: Left basilar consolidation could be infiltrate and/or atelectasis. Dictated by: Dictated on workstation # [id number] Dict: 07/02/20 1028 Trans: 07/02/20 1029 [id number] Interpreted by: KAREEM COHEN MD Electronically signed by: KAREEM COHEN MD 07/02/20 1029 Diagonstic Imaging: Xray Plain Films/CT/US/NM/MRI: pelvis, hip Comments [facility] [place] [place] NAME: LASHONDAMAYCOHERB [facility] REC#: [id number] PT STATUS: REG ER : 1930 PHYSICIAN: KAREEM PINTO MD ADMIT DATE: 07/02/20/ER Signed Date of Exam:07/02/20 PELVIS WITH LEFT HIP 2-3 VIEWS Indication: Left hip injury from a fall AP view pelvis shows a left femoral neck fracture with reduction of the femoral angle. Pelvic ring is intact. IMPRESSION: Displaced left femoral neck fracture. Critical finding Dictated by: Dictated on workstation # [id number] Dict: 07/02/20 1030 Trans: 07/02/20 1031 [id number] Interpreted by: KAREEM COHEN MD Electronically signed by: KAREEM COHEN MD 07/02/20 1031 (KAREEM PINTO MD) Departure Communication (Admissions) Time/Spoke to Admitting Phy: 11:13 Time/Spoke to Consulting Phy: 11:25 (KAREEM PINTO MD) Impression Primary Impression: Closed left hip fracture Qualified Codes: S72.002A - Fracture of unspecified part of neck of left femur, initial encounter for closed fracture Additional Impression: Paroxysmal atrial fibrillation Disposition: ADMITTED INPATIENT Condition: Stable Admissions Decision to Admit Reason: Admit from ER (General) Decision to Admit/Date: Jul 02, 2020 Time/Decision to Admit Time: 11:13 (KAREEM PINTO MD) Departure-Patient Inst. Referrals: LORE POWELL DO (PCP/Family) Primary Care Physician MICKIE SHANNON [facility] Jul 02, 2020 09:42 KAREEM PINTO MD Jul 02, 2020 10:13
[2020-07-02 09:50] LABS: BASOPHILS % (AUTO) 1 % (0-10); EOSINOPHILS # (AUTO) 0.1 10^3/uL (0.0-0.3); EOSINOPHILS % (AUTO) 2 % (0-10); HEMATOCRIT 37 % (35-52); HEMOGLOBIN 12.4 G/DL (11.5-16.0); LYMPHOCYTES # (AUTO) 2.1 X 10^3 (1.0-4.0); LYMPHOCYTES % (AUTO) 33 % (12-44); MEAN CORPUSCULAR HEMOGLOBIN 33 PG (25-34); MEAN CORPUSCULAR HGB CONC 33 G/DL (32-36); MEAN CORPUSCULAR VOLUME 99 FL (80-99); MEAN PLATELET VOLUME 10.1 FL (7.4-10.4); MONOCYTES # (AUTO) 0.6 X 10^3 (0.0-1.0); MONOCYTES % (AUTO) 9 % (0-12); NEUTROPHILS # (AUTO) 3.7 X 10^3 (1.8-7.8); NEUTROPHILS % (AUTO) 56 % (42-75); PLATELET COUNT 251 10^3/uL (130-400); RED CELL DISTRIBUTION WIDTH 13.8 % (10.0-14.5); WHITE BLOOD COUNT 6.5 10^3/uL (4.3-11.0)
[2020-07-02 10:02] LABS: ALANINE AMINOTRANSFERASE 9 U/L (0-55); ALBUMIN 4.1 GM/DL (3.2-4.5); ALKALINE PHOSPHATASE 54 U/L (40-136); BILIRUBIN,TOTAL 0.5 MG/DL (0.1-1.0); BUN/CREATININE RATIO 21; CALCIUM 8.7 MG/DL (8.5-10.1); CARBON DIOXIDE 24 MMOL/L (21-32); CHLORIDE 101 MMOL/L (98-107); CREATININE SERUM 0.73 MG/DL (0.60-1.30); GFR ESTIMATED > 60; GLUCOSE 131 MG/DL (70-105); POTASSIUM 3.7 MMOL/L (3.6-5.0); SODIUM 134 MMOL/L (135-145); TOTAL PROTEIN 6.6 GM/DL (6.4-8.2)
--- NOTE | 2020-07-02 10:26 | NUR ---
TO CT PER CART
--- NOTE | 2020-07-02 10:30 | Diagnostic Imaging Report ---
Indication: Left hip fracture, preop Portable chest 10:06 AM There is a loop recorder projecting over the left lower chest. There is some consolidation present in the left lower lung. There is no effusion or pneumothorax. IMPRESSION: Left basilar consolidation could be infiltrate and/or atelectasis. Dictated by: Dictated on workstation # [id number]
--- NOTE | 2020-07-02 10:32 | Diagnostic Imaging Report ---
Indication: Left hip injury from a fall AP view pelvis shows a left femoral neck fracture with reduction of the femoral angle. Pelvic ring is intact. IMPRESSION: Displaced left femoral neck fracture. Critical finding Dictated by: Dictated on workstation # [id number]
--- NOTE | 2020-07-02 11:01 | Diagnostic Imaging Report ---
PROCEDURE: CT head and CT cervical spine without contrast. TECHNIQUE: Multiple contiguous axial images were obtained through the brain and cervical spine without the use of intravenous contrast. Sagittal and coronal reformations through the cervical spine were then performed. Auto Exposure Controls were utilized during the CT exam to meet ALARA standards for radiation dose reduction. INDICATION: Trauma, fall. Correlation is made with prior CT from 03/16/2020. CT HEAD: Ventricles and sulci are consistent with the patient's age. Moderate periventricular hypodensity is noted consistent with senescent change. No sulcal effacement or midline shift is identified. No acute intra-axial or extra-axial hemorrhage is detected. Cisterns are patent. Visualized paranasal sinuses are clear. IMPRESSION: Senescent changes. No acute intracranial process is identified. CT cervical spine: Curvature and alignment of the cervical spine is normal. There is multilevel degenerative disc and facet disease. There is variable disc space narrowing and marginal spurring. Prevertebral tissues are within normal limits. No fractures are identified. Odontoid is intact. IMPRESSION: Cervical spondylosis. No acute bony abnormality is detected. Dictated by: Dictated on workstation # [id number]
[2020-07-02] MEDS ORDERED: LACTATED RINGERS 1,000 ML IV ONE ×2 (11:19→11:32)
--- NOTE | 2020-07-02 11:33 | NUR ---
DR PINTO UPDATED FAMILY BY PHONE
--- NOTE | 2020-07-02 12:11 | NUR ---
NURSE TO CALL BACK FOR REPORT
--- NOTE | 2020-07-02 12:24 | NUR ---
JOURDAN CHENEY THAT PATIENT WAS BEING ADMITTED.,
--- NOTE | 2020-07-02 12:30 | NUR ---
MARY GALLEGO admitted to room 410-1, with an admitting diagnosis of LEFT FEMORAL NECK FX, on 07/02/20 from ED via BED, accompanied by ED STAFF.MARY GALLEGO introduced to surroundings, call light, bed controls, phone, TV, temperature control, lights, meal times, smoking policy, visitor policy, side rail policy, bathrooms and showers. Patient Rights given to patient in the handbook. MARY GALLEGO verbalizes understanding that [facility] is not responsible for the loss or damage to any personal effects or valuables that are kept in the patients posession during their hospitalization. MARY GALLEGO verbalizes understanding of Interdisciplinary Patient Education. Patient and/or family were informed about the Rapid Response Team and its purpose.
[2020-07-02] MEDS ORDERED: ONDANSETRON 4 MG/2 ML (SDV) Z0FRAN IV PRN (13:00)
[2020-07-02] MEDS: fentaNYL INJECTION 100 MCG/2 ML AMP IV PRN ×3 (13:08→22:28)
[2020-07-02] MEDS ORDERED: ROCURONIUM 10 MG/ML 5 ML SYRINGE IV ONE (14:06)
[2020-07-02] MEDS ORDERED: proPOfol 200 MG/20 ML (DIPRIVAN) VIAL IV ONE (14:06)
[2020-07-02] MEDS ORDERED: LIDOCAINE PF 2% 5 ML (XYLOCAINE) VIAL ONE (14:06)
[2020-07-02] MEDS ORDERED: SEVOFLURANE (ULTANE) 15 ML INHAL SOLN ONE ×7 (14:06→18:53)
[2020-07-02] MEDS ORDERED: MUPI22OI2 TOP (14:08)
[2020-07-02] MEDS ORDERED: DILT120C53 PO (14:08)
[2020-07-02] MEDS ORDERED: NITR100C PO (14:08)
[2020-07-02] MEDS ORDERED: ASCO500T71 PO (14:08)
[2020-07-02] MEDS ORDERED: CRAN450T9 PO (14:08)
[2020-07-02] MEDS ORDERED: FLUC200T5 PO (14:08)
[2020-07-02] MEDS ORDERED: APIX5TAB PO (14:08)
[2020-07-02] MEDS ORDERED: LORA10TA7 PO (14:08)
--- NOTE | 2020-07-02 14:10 | NUR ---
SPOKE WITH THE PT AND HER DAUGHTER SHRAVAN (SHE HAS A MED LIST ON THE CHART) AND WENT THRU THE EXT MED HISTORY TO COMPLETE THE MED REC NITROFURANTOIN 100MG- ON THE EXT MED HISTORY IS SHOWS 1 TAB DAILY HOWEVER PT WAS TOLD BY DR. RUIZ TO DECREASE THE FREQUENCY AND PT NOW TAKES 1 TAB Q 48H ELIQUIS: 5MG AND 2.5MG BOTH SHOW ON THE EXT MED HISTORY- SHRAVAN INDICATES SHE THINKS [facility] KEEPS FILLING THE WRONG STRENGTH SHE IS TAKING 2.5MG BID AND [facility] KEEPS FILLING 5MG. SHRAVAN HAS BEEN SPLITTING THE TABS AND IS GIVING HALF OF A 5MG TAB TWICE DAILY XANAX 0.25MG- DIRECTIONS ON THE MED REC SHOW 1 TAB BID HOWEVER PT AND SHRAVAN SAY PT ONLY TAKES 1 TAB HS OTC MEDS: OMEPRAZOLE LORATADINE IRON ELDERBERRY CRANBERRY VIT C TYLENOL MELATONIN 3MG @ 1900 MELATONIN 5MG @ HS
--- NOTE | 2020-07-02 15:25 | Progress Note-Pre Operative ---
Pre-Operative Progress Note H&P Reviewed The H&P was reviewed, patient examined and no changes noted. Date Seen by Provider: Jul 02, 2020 Time Seen by Provider: 15:24 Date H&P Reviewed: Jul 02, 2020 Time H&P Reviewed: 15:25 Pre-Operative Diagnosis: left femoral neck fracture SILKE BRAGG MD Jul 02, 2020 15:25
--- NOTE | 2020-07-02 15:26 | Progress Note-Post Operative ---
Post-Operative Progess Note Surgeon (s)/Casing Wringer Operator (s) Surgeon SILKE BRAGG MD Casing Wringer Operator: Rhett Landin Pre-Operative Diagnosis left femoral neck fracture Post-Operative Diagnosis left femoral neck fracture Procedure & Operative Findings Date of Procedure 07/02/20 Procedure Performed/Findings left hip bipolar replacement Anesthesia Type GETA Estimated Blood Loss Estimated blood loss (mL): 100 ml Specimens/Packing Specimens Removed femoral head Packing: none SILKE BRAGG MD Jul 02, 2020 15:26
--- NOTE | 2020-07-02 15:41 | HISTORY AND PHYSICAL ---
DATE OF SERVICE: 07/02/2020 ADMISSION HISTORY AND PHYSICAL REASON FOR ADMISSION: Left femoral neck fracture. HISTORY OF PRESENT ILLNESS: The patient is an 89-year-old female who got dizzy at home. She does not have her walker. She fell, hurt her left hip. She presented to the Emergency Department where she was found to have a displaced left femoral neck fracture. She denies antecedent pain. She has been cleared by cardiology. She reports no prior history of hip problems. ALLERGIES: AMOXICILLIN, WHICH CAUSES NAUSEA AND VOMITING, MORPHINE, WHICH CAUSES NAUSEA AND VOMITING WELL, NEITHER ONE ARE TRUE ALLERGIES. MEDICATIONS: Acetaminophen, alprazolam, apixaban, calcium, iron, melatonin, Naprosyn. PAST MEDICAL HISTORY: Atrial fibrillation, hypertension, nephrolithiasis. PAST SURGICAL HISTORY: Abscess, tonsillectomy and . FAMILY HISTORY: Significant for diabetes mellitus. PHYSICAL EXAMINATION: GENERAL: The patient is well-developed, well-nourished, in no acute distress. HEENT: Normocephalic, atraumatic. Pupils are equal, round, reactive to light. Oropharynx is clear. NECK: Supple, no lymphadenopathy. LUNGS: Clear to auscultation bilaterally. HEART: Regular rate and rhythm. ABDOMEN: Soft, nontender, nondistended. EXTREMITIES: Left lower extremity shortened and externally rotated. She has intact dorsiflexion and plantar flexion toes. Sensation is intact distally to light touch with small symmetric pulses. IMPRESSION: Left hip displaced femoral neck fracture. PLAN: Left hip bipolar replacement. The risks, benefits, options, ramifications and recovery have been discussed at length with the patient and her daughter. They understand and wish to proceed. Job ID: [id number] DocumentID: [id number] Dictated Date: 07/02/2020 15:25:01 Pole Maker Date: 07/02/2020 15:40:44 Dictated By: SILKE BRAGG MD
[2020-07-02] MEDS: ONDANSETRON 4 MG/2 ML (SDV) Z0FRAN IV PRN (16:00)
[2020-07-02] MEDS ORDERED: BISACODYL 10 MG SUPP (DULCOLAX) PR PRN (16:45)
[2020-07-02] MEDS ORDERED: ACETAMINOPHEN 325 MG TABLET PO PRN (16:45)
[2020-07-02] MEDS ORDERED: polyethylene glycoL POWDER 17 GM (MIRALAX) PACK PO PRN (16:45)
[2020-07-02] MEDS ORDERED: ONDANSETRON 4 MG (ZOFRAN) ORAL DISSOLVE TAB PO PRN (16:45)
[2020-07-02] MEDS ORDERED: ANTACID SUSP 30 ML UDC (MYLANTA) PO PRN (16:45)
--- NOTE | 2020-07-02 16:45 | NUR ---
REPORT GIVEN TO CARMELLA WILKINS IN OR. PT TAKEN FOR SURGERY AT 1700.
[2020-07-02] MEDS ORDERED: ONDANSETRON 4 MG/2 ML (SDV) Z0FRAN IVP PRN ×2 (17:00→17:30)
[2020-07-02] MEDS ORDERED: fentaNYL INJECTION 100 MCG/2 ML AMP IVP PRN (17:00)
[2020-07-02] MEDS ORDERED: LACTATED RINGERS 1,000 ML IV PRN (17:19)
[2020-07-02] MEDS ORDERED: fentaNYL INJECTION 100 MCG/2 ML AMP IVP ONE (17:30)
[2020-07-02] MEDS ORDERED: PROMETHAZINE INJ 25 MG/ML (PHENERGAN) AMP IVP ONE (17:30)
[2020-07-02] MEDS ORDERED: ceFAZolin 2 GM IV Premixed 50 ML IV ONE (17:30)
[2020-07-02] MEDS ORDERED: WATER (STERILE) FOR INJECTION 20 ML ONE (17:38)
[2020-07-02] MEDS ORDERED: ceFAZolin INJECTION 1,000 MG ONE (17:38)
--- NOTE | 2020-07-02 18:12 | Consultation-Cardiology ---
HPI-Cardiology Cardiology Consultation: Date of Consultation 07/02/20 Date of Admission Attending Physician Og Woodward MD Admitting Physician Rommel Morales DO Consulting Physician Arturo KNUTSON MD HPI: Time Seen by a Provider: 10:00 Chief Complaint: Preoperative cardiovascular risk assessment This is a 89-year-old lady who follows with Dr. Baron. She fell and broke her hip. Near syncopal episode. She has history of atrial fibrillation with RVR and is on Eliquis. She denies active smoking. Pertinent family history is negative. She had reasonable functional capacity at home. She denies any active chest pain or shortness of breath. Review of Systems-Cardiology Review of Systems Constitutional: As described under HPI; No As described under HPI, No no symptoms reported, No chills, No fever, No lightheadedness Eyes: No As described under HPI, No no symptoms reported, No blindness, No blurred vision, No contact lenses, No drainage, No decreased acuity, No foreign body sensation, No pain, No vision change Ears/Nose/Throat: No As described under HPI, No no symptoms reported, No chronic hearing loss, No ear discharge, No ear pain, No nasal drainage, No ulcerations Respiratory: No no symptoms reported; As described under HPI; No As described under HPI, No cough, No orthopnea, No shortness of breath, No SOB with excertion Cardiovascular: No no symptoms reported; As described under HPI; No As described under HPI, No chest pain, No edema, No irregular heart rate, No lightheadedness, No palpitations Gastrointestinal: No no symptoms reported, No As described under HPI, No abdomen distended, No abdominal pain, No blood streaked bowels, No constipation, No diarrhea, No nausea, No vomiting, No stool coloration changes Genitourinary: No As described under HPI, No burning, No dysuria, No discharge, No frequency, No flank pain, No hematuria, No urgency : Yes : No Skin: No rash, No skin related problems, No ulcerations Psychiatric/Neurological: No anxiety, No depression, No seizure, No focal weakness, No syncope Hematologic: No bleeding abnormalities All Other Systems Reviewed Negative Unless Noted: Yes CRB-Eujmed-Svbyij Hx Patient Social History Alcohol Use: Denies Use Recreational Drug Use: No Smoking Status: Never a Smoker Recent Foreign Travel: No Recent Infectious Disease Expo: No Hospitalization with Isolation: Denies Past Medical History PMH As described under Assessment. Family Medical History Family History: Diabetes mellitus 19 MOTHER Allergies and Home Medications Allergies Coded Allergies: amoxicillin (Verified Allergy, Unknown, pt has rec Rocephin and Ancef in the past, 07/02/20) clavulanic acid (Verified Allergy, Unknown, 07/02/20) morphine (Verified Adverse Reaction, Unknown, knocks her out, 03/16/20) Home Medications Acetaminophen 500 Mg Tablet, 500 MG PO 0900,1300, (Reported) Acetaminophen 500 Mg Tablet, 1,000 MG PO HS, (Reported) Alprazolam 0.25 Mg Tablet, 0.25 MG PO HS, (Reported) Apixaban 5 Mg Tablet, 2.5 MG PO BID, (Reported) TAKES OF A 5MG TAB Ascorbic Acid 500 Mg Tab.chew, 500 MG PO 1900, (Reported) Cranberry Fruit 450 Mg Tablet, 450 MG PO BID, (Reported) Diltiazem HCl 120 Mg Cap.er.24h, 120 MG PO BID, (Reported) Elderberry Fruit and Flower 1 Each Capsule, 2 EACH PO 1300, (Reported) Ferrous Sulfate 325 Mg Tablet, 325 MG PO 1300, (Reported) Fluconazole 200 Mg Tablet, 200 MG PO SATU, (Reported) TAKES ONCE WEEKLY ON MONDAY Loratadine 10 Mg Tablet, 10 MG PO DAILY, (Reported) Melatonin 3 Mg Tablet, 3 MG PO 1900, (Reported) Melatonin 5 Mg Tablet, 5 MG PO HS, (Reported) Mupirocin 22 Gm Oint...g., 1 APPLIC TOP BID PRN for RASH, (Reported) Nitrofurantoin Macrocrystal 100 Mg Capsule, 100 MG PO Q48H, (Reported) TAKES AT 1900 Omeprazole 20 Mg Tablet.dr, 20 MG PO DAILY, (Reported) Patient Home Medication List Home Medication List Reviewed: Yes Physical Exam-Cardiology Physical Exam Vital Signs/I&O 07/07/20 07/07/20 07/07/20 08:00 08:00 14:50 Temp 37.5 Pulse 86 Resp 22 B/P (MAP) 116/72 (87) Pulse Ox 96 O2 Delivery Room Air Room Air Room Air 07/07/20 00:00 Intake Total 1150 ml Output Total 1700 ml Balance -550 ml Capillary Refill : Less Than 3 SecondsLess Than 3 Seconds Constitutional: appears stated age, AAO x 3; No apparent distress; well- developed, well-nourished HEENT: PERRL; No discharge; hearing is well preserved, oral hygience is good; No ulceration, No xanthelasmas are seen Neck: No carotid bruit; carotid pulses are 2 + bilaterally Respiratory: chest is bilaterally symmetric, lungs clear to auscultation Cardiovascular: regular rate-rhythm, S1 and S2; No diastolic murmur, No systolic murmur Gastrointestinal: soft, audible bowel sounds; No spleenomegaly Rectal: deferred Extremities: normal range of motion, non-tender, normal inspection; No clubbing, No cyanosis; no lower extremity edema bilateral; No significant edema Neurologic/Psychiatric: no motor/sensory deficits, alert, normal mood/affect, oriented x 3, power is 5/5 both on sides Skin: normal color; No rash, No ulcerations Data Review Labs Microbiology 07/06/20 Urine Culture - Preliminary, Resulted Enterobacter cloacae complex 07/02/20 MRSA Screen - Final, Complete A/P-Cardiology Assessment/Admission Diagnosis Preoperative cardiovascular risk assessment, Plan Echocardiogram done 07/02/2020 shows normal LV function with no significant valvular heart disease. Patient is considered to be at low risk for major adverse cardiac events in the perioperative period undergoing an intermediate risk on Cardec surgery. There is no cardiac contraindication to the above-mentioned procedure. Thank you for your consultation. Please call me if you have any questions. Eliana Knutson MD, FACP, FACC, FSCAI, FHRS, CCDS Interventional Cardiology Cardiac Electrophysiology Vascular Medicine and Endovascular Interventions Clinical Quality Measures DVT/VTE Risk/Contraindication: Risk Factor Score Per Nursin RFS Level Per Nursing on Admit: 4+=Very High Arturo KNUTSON MD Jul 02, 2020 18:12
[2020-07-02] MEDS ORDERED: BUPIVACAINE 0.5% 30 ML (SENSORCAINE) VIAL ONE (18:41)
--- NOTE | 2020-07-02 20:15 | NUR ---
Received report from recovery room nurse CARMELLA Frederick. Pt is alert and awake and is not complaining of pain. Dressing is dry and intact.
--- NOTE | 2020-07-02 20:49 | Diagnostic Imaging Report ---
INDICATION: Postoperative left hip. FINDINGS: AP view of the left hip demonstrates interval arthroplasty. Skin brenton are present. There are no abnormal foreign bodies. No fracture is present. IMPRESSION: Postoperative left hip with no complication. Dictated by: Dictated on workstation # [id number]
[2020-07-02] MEDS: SENNOSIDES 8.6 MG (SENOKOT) TAB PO SCH (21:06)
[2020-07-02] MEDS: dilTIAZem120 MG (CARDIZEM CD) CAP PO SCH (21:06)
[2020-07-02] MEDS: DOCUSATE SODIUM 100 MG (COLACE) CAP PO SCH (21:06)
--- NOTE | 2020-07-02 22:30 | NUR ---
Notified Dr. Woodward and Rhett Landin of the following: - pt request to eat something - Received order to change to Regular diet - if IV fluids will be continued - Received order for fluids just through the night - LR at 100ml/hr. Will order 1 bag of IV fluids.
[2020-07-03] VITALS: BP 152/80
[2020-07-03] MEDS: fentaNYL INJECTION 100 MCG/2 ML AMP IV PRN ×3 (02:07→12:02)
[2020-07-03] MEDS: ceFAZolin INJECTION 1,000 MG in WATER (STERILE) FOR INJECTION 10 ML IV SCH ×2 (02:07→06:24)
[2020-07-03 04:00] VITALS: BP 133/68
[2020-07-03] MEDS ORDERED: LACTATED RINGERS 1,000 ML IV ONE (04:30)
--- NOTE | 2020-07-03 06:50 | Progress Note ---
Standard Progress Note Progress Notes/Assess & Plan Date Seen by a Provider: Jul 03, 2020 Time Seen by a Provider: 06:49 Progress/Assessment & Plan no complaints reports minimal pain radiogrpahs--HW well well positioned without fracture LLE--no calf tenderness. Intact DF and PF of toes and ankle with intact sensation to light touch throughout s/p L hip bipolar mobilize IRU? SILKE BRAGG MD Jul 03, 2020 06:50
--- NOTE | 2020-07-03 07:07 | OPERATIVE REPORT ---
DATE OF SERVICE: 07/02/2020 PREOPERATIVE DIAGNOSIS: Displaced left femoral neck fracture. POSTOPERATIVE DIAGNOSIS: Displaced left femoral neck fracture. PROCEDURE: Left hip bipolar replacement. SURGEON: Og Bragg MD DISTRICT CAPTAIN: Rhett Landin, who assisted throughout the procedure and closed the incision. ANESTHESIA: General endotracheal by Perry Dela Cruz CRNA ESTIMATED BLOOD LOSS: 100 mL. DRAINS: None. COMPLICATIONS: None. POSTOPERATIVE PLAN: Routine protocol. MATERIALS: Synthes pressfit size 6 stem with a 46 mm shell and a neutral head/neck with a 1.7 mm proximal cable. STATEMENT OF MEDICAL NECESSITY: The patient is an 89-year-old female who presented to the Emergency Department this morning following a fall. She was found to have a displaced left femoral neck fracture. The patient was counseled regarding treatment options and elected to proceed with operative intervention. DESCRIPTION OF PROCEDURE: After risks and benefits of procedure were discussed and questions were answered, informed consent was signed and placed on chart, the operative site was confirmed and prepped in normal initialed by the surgeon. The patient was then transferred to the operating room and after adequate levels of general endotracheal anesthetic were obtained, a timeout was called, confirming the operative site. The patient was then carefully placed in the right lateral decubitus position, being careful to place an axillary roll and pad all bony prominences. Left hip and lower extremity were prepped and draped in the usual sterile fashion. An anterior lateral approach was utilized. Hemostasis was obtained with cautery. The iliotibial band was incised in line with the incision. The abductor tendon was released leaving a 2 cm cuff for later reapproximation. A hip capsulotomy was performed. The femoral neck cut was made using the guide. The femoral head was removed and sized to a size 45. The femur was then prepared with the box chisel followed by the T-handle reamer and the broaches. A had excellent fill. The trials were then inserted. The hip was reduced after copiously irrigating the hip joint and ensuring that there were no loose bodies. After hip reduction the hip was taken through range of motion with no impingement in the hip noted, no instability noted and no limitations to motion. The hip was redislocated. The trials were removed. The joint was copiously irrigated. The size 6 stem was placed in 15 degrees of anteversion. After placement of the stem there was noted to be an approximately a 2 cm fracture line medially at the calcar. Because of this, a 1.7 mm cable was placed in standard fashion just distal to the lesser trochanter with excellent tensioning obtained. No propagation of the fracture line was noted. The joint was further irrigated, ensuring no loose bodies were present. The head liner construct was placed. The hip was reduced and taken through range of motion. No instability was noted. No impingement was noted and no limitations to motion were noted. The joint was further irrigated with pulse lavage. The capsule and abductor were repaired using #5 Tevdek in [id number] interrupted fashion with an excellent repair obtained. Further irrigation was performed using a total of 6 liters throughout the procedure. The iliotibial band was closed in a running fashion with #1 Vicryl. A 0 Vicryl was used for deep subcutaneous tissue, 2-0 Vicryl for the superficial subcutaneous tissue after further irrigation. [place] used on the skin. The incision was infiltrated with plain Marcaine and soft dressing and abduction pillow were applied. The patient was transferred to the recovery room awake and in stable condition. Job ID: [id number] DocumentID: [id number] Dictated Date: 07/02/2020 19:20:48 Ground Transportation Operator Date: 07/03/2020 07:07:13 Dictated By: OG BRAGG MD
[2020-07-03 07:54] VITALS: BP 129/70
[2020-07-03] MEDS: DOCUSATE SODIUM 100 MG (COLACE) CAP PO SCH ×2 (07:59→21:28)
[2020-07-03] MEDS: PANTOPRAZOLE 20 MG TABLET (PROTONIX) PO SCH (07:59)
[2020-07-03] MEDS: SENNOSIDES 8.6 MG (SENOKOT) TAB PO SCH ×2 (07:59→21:28)
[2020-07-03] MEDS: dilTIAZem120 MG (CARDIZEM CD) CAP PO SCH ×2 (07:59→21:28)
[2020-07-03] MEDS ORDERED: ENOXAPARIN 40 MG/0.4 ML (LOVENOX) SYR SC SCH (08:00)
--- NOTE | 2020-07-03 09:40 | Physical Therapy Evaluation ---
PT Evaluation-General Medical Diagnosis Admission Date Jul 02, 2020 at 11:48 Medical Diagnosis: left hip fracture Onset Date: Jul 02, 2020 Therapy Diagnosis Therapy Diagnosis: generalized weakness/debility Height/Weight Height (Feet): 5 Height (Inches): 5.00 Weight (Pounds): 129 Weight (Ounces): 8.0 Precautions Precautions/Isolations: Standard Precautions Weight Bear Status Right Lower Extremity: Right Weight Bearing/Tolerated Left Lower Extremity: Left Weight Bearing/Tolerated Referral Physician: Trace Reason for Referral: Evaluation/Treatment Medical History Pertinent Medical History: Atrial Fib, Arthritis Additional Medical History TIA? Current History EMS secondary to dizziness resulting in fall at home Reviewed History: Yes Social History Home: Single Level Current Living Status: Alone Prior Prior Level of Function SCALE: Activities may be completed with or without assistive devices. 4-Zxphlwkrjj-zyjzqea completes the activity by him/herself with no assistance from a helper. 5-Set-up or Clean-up Assistance-helper sets up or cleans up; patient completes activity. [place] assists only prior to or following the activity. 4-Supervision or Touching Assistance-helper provides verbal cues and/or touch ing/steadying and/or contact guard assistance as patient completes activity. Assistance may be provided throughout the activity or intermittently. 3-Partial/Moderate Assistance-helper does LESS THAN HALF the effort. [place] lifts, holds or supports trunk or limbs, but provides less than half the effort. 2-Substantial/Maximal Assistance-helper does MORE THAN HALF the effort. [place] lifts or holds trunk or limbs and provides more than half the effort. 5-Mfshygycu-oxylyo does ALL the effort. Patient does none of the effort to complete the activity. Or, the assistance of 2 or more helpers is required for the patient to complete the activity. If activity was not attempted, code reason: 7-Patient Refused. 9-Not Applicable-not attempted and the patient did not perform the activity before the current illness, exacerbation or injury. 10-Not Attempted due to Environmental Limitations-(lack of equipment, weather restraints, etc.). 88-Not Attempted due to Medical Conditions or Safety Concerns. Bed Mobility: 6 Transfers (B,C,W/C): 6 Gait: 6 Stairs: 6 Indoor Mobility (Ambulation): Independent Stairs: Independent Prior Devices Use: Walker (PRN) PT Evaluation-Current Subjective Patient agrees to PT. She report minimal pain left hip at rest. Pain Numeric Pain Scale: 5-Moderate Pain Location: Left Location Body Site: Hip Pain Description: Acute Comment: meds issued prior Objective Patient Orientation: Normal For Age Attachments: Lord Catheter, IV ROM/Strength ROM Lower Extremities left LE hip protocol/right LE WFL Strength Lower Extremities right LE 3+/5 grossly/left LE 3-/5 grossly Integumentary/Posture Integumentary refer to nursing notes Bladder Incontinence: Lord Cath Posture kyphotic Neuromuscular (Tone, Coordination, Reflexes) grossly intact Sensory Vision: impaired Hearing: Impaired Sensation Right Lower Extremit: Intact Sensation Left Lower Extremity: Intact Transfers Roll Left to Right (QC): 2 Lying to Sitting/Side of Bed(Q: 2 Sit to Stand (QC): 3 Chair/Xvj-cn-Eebuo Xfer(QC): 3 Gait Does the Patient Walk?: Yes Mode of Locomotion: Walk Anticipated Mode of Locomotion: Walk Walk 10 feet (QC): 3 Walk 50 ft with 2 Turns(QC): 88 Walk 150 ft (QC): 88 Gait Assistive Device: FWW Comments/Gait Description antalgic gait sequence/step to Balance Sitting Static: Normal Sitting Dynamic: Normal Standing Static: Fair Standing Dynamic: Fair Assessment/Needs 89 y.o. female, will benefit from skilled PT to address functional strength and mobility to improve current LOF to safely return to home at maximum LOF. Rehab Potential: Fair PT Longterm Goals Box Car Washer Goals PT Box Car Washer Goals Time Frame: Jul 25, 2020 Roll Left & Right (QC): 6 Sit to Lying (QC): 6 Lying-Sitting on Side/Bed(QC): 6 Sit to Stand (QC): 6 Chair/Igc-oj-Wjhsi Xfer(QC): 6 Toilet Transfer (QC): 6 Car Transfer (QC): 6 Does the Patient Walk: Yes Walk 10 feet (QC): 6 Walk 50ft with 2 Turns (QC): 6 Walk 150 ft (QC): 6 Walking 10ft on Uneven Surface: 6 1 Step (curb) (QC): 6 4 Steps (QC): 6 PT Plan Problem List Problem List: Activity Tolerance, Functional Strength, Safety, Balance, Gait, Transfer, Bed Mobility Treatment/Plan Treatment Plan: Continue Plan of Care Treatment Plan: Bed Mobility, Education, Functional Activity Syl, Functional Strength, Gait, Safety, Therapeutic Exercise, Transfers Treatment Duration: Jul 25, 2020 Frequency: 11 times per week Estimated Hrs Per Day: .5 hour per day Patient and/or Family Agrees t: Yes Safety Risks/Education Patient Education: Gait Training Time/GCodes Time In: 815 Time Out: 846 Total Billed Treatment Time: 31 Total Billed Treatment 1 visit EVModC 17 min GT 14 min ANAHI JOHNSON PT Jul 03, 2020 09:40
--- NOTE | 2020-07-03 10:05 | Progress Note - Cardiology ---
Cardiology SOAP Progress Note Subjective: Sitting up in recliner at the bedside. Denies any c/o CP, palpitations, further syncopal or near syncopal episodes. No c/o dyspnea. Objective: I&O/Vital Signs 07/07/20 07/07/20 07/07/20 00:06 08:00 08:00 Temp 37.7 37.5 Pulse 94 86 Resp 17 22 B/P (MAP) 141/73 (95) 116/72 (87) Pulse Ox 95 96 O2 Delivery Room Air Room Air Room Air 07/07/20 00:00 Intake Total 1150 ml Output Total 1700 ml Balance -550 ml Weight (Pounds): 129 Weight (Ounces): 8.0 Weight (Calculated Kilograms): 58.064335 Constitutional: AAO x 3; No apparent distress; well-developed, well-nourished Respiratory: No accessory muscle use, No respiratory distress; chest expansion is symmetric, chest is bilaterally symmetric, lungs clear to auscultation Cardiovascular: regular rate-rhythm; No JVD; S1 and S2 Gastrointestional: soft, round, audible bowel sounds Extremities: other (mild L LE swelling (post op side)) Neurologic/Psychiatric: grossly intact (moves extremities) Skin: No rash on exposed areas, No ulcerations on exposed areas Results/Procedures: Labs Laboratory Tests 07/06/20 13:55: White Blood Count 10.3, Red Blood Count 2.84L, Hemoglobin 9.4L, Hematocrit 28L, Mean Corpuscular Volume 99, Mean Corpuscular Hemoglobin 33, Mean Corpuscular Hemoglobin Concent 34, Red Cell Distribution Width 13.2, Platelet Count 222, Mean Platelet Volume 9.6, Sodium Level 130L, Potassium Level 4.4, Chloride Level 95L, Carbon Dioxide Level 27, Anion Gap 8, Blood Urea Nitrogen 12, Creatinine 0.60, Estimat Glomerular Filtration Rate > 60, BUN/Creatinine Ratio 20, Glucose Level 128H, Calcium Level 8.3L 07/06/20 18:00: Urine Color YELLOW, Urine Clarity CLOUDY, Urine pH 7.5, Urine Specific [place] 1.010L, Urine Protein NEGATIVE, Urine Glucose (UA) NEGATIVE, Urine Ketones NEGA TIVE, Urine Nitrite NEGATIVE, Urine Bilirubin NEGATIVE, Urine Urobilinogen 0.2, Urine Leukocyte Esterase 3+H, Urine RBC (Auto) TRACE-I, Urine RBC 0-2, Urine WBC >100H, Urine Crystals NONE, Urine Bacteria MODERATEH, Urine Casts NONE, Urine Mucus NEGATIVE, Urine Culture Indicated YES Microbiology 07/02/20 MRSA Screen - Final, Complete A/P: Assessment: Syncopal episode of undetermined etiology in early March 2019 and again on Jul 02, 2020 S/P L hip fracture repair per Dr. Woodward on Jul 02, 2020 following a syncopal fall S/p ILR on 03/24/20 that has shown PAF w RVR and w/o significant bradycardia so far Paroxysmal atrial flutter, first documented on tele strips on 02/11/18 Probable TIA on 02/11/18, resulting in transient R foot numbness/weakness leading to fall and fracture of the R 5th metatarsal, managed by her pcp Lena for stroke prophylaxis MPI of March 20, 2018 showed no evidence of ischemia or infarction. LVEF 80% Echocardiogram of February 12, 2018 showed LVEF 65-70%. Mild aortic regurg. Mod TR. PASP 35 mmHg. Trivial MR. Carotid u/s of 03/19/20 showed minimal bilat carotid plaque TSH normal (0.73) on lab work of 02/12/18 H/O SBO in January 2019 - did not require surgery Plan: S/P syncopal fall on Jul 02, 2020 resulting in left hip fracture ILR in place for which we have not seen any evidence of renay-arrhythmia in the past - interrogate today Continue OAC with Eliquis for stroke prophylaxis if OK with surgical services Monitor lab closely Further recs will be based on her hospital course We have reviewed records per MECCA Pascual Jul 03, 2020 10:05
--- NOTE | 2020-07-03 10:49 | Anesthesia-General Post-Op ---
General Patient Condition Mental Status/LOC: Same as Preop Cardiovascular: Satisfactory Nausea/Vomiting: Absent Respiratory: Satisfactory Pain: Controlled Complications: Absent Post Op Complications Complications None Follow Up Care/Instructions Patient Instructions None needed. Anesthesia/Patient Condition Patient Condition Patient is doing well, no complaints, stable vital signs, no apparent adverse anesthesia problems. DAVID WEST DO Jul 03, 2020 10:49
[2020-07-03 11:51] VITALS: BP 129/68
--- NOTE | 2020-07-03 12:28 | NUR ---
IRF Evaluation Determination: Accepted Patient's primary insurance provider is [facility]; therefore, prior authorization will need to be submitted and determination provided, prior to admission. CM/SS notified. Contacted patient's nurse notifying her that OT eval/treat order would need to be placed as patient's insurance requires both PT/OT evaluations/progress notes. Nurse states she will follow up with request. Will continue to follow. Thank you for this referral.
--- NOTE | 2020-07-03 12:48 | Consultation - Hospitalist ---
HPI History of Present Illness: HPI/Chief Complaint Murali Arroyo is an 89-year-old female with past history of hypertension, atrial fibrillation, GERD, seasonal allergies, anxiety, who presented after a fall and was admitted with a hip fracture. She reports that she is feeling lightheaded and dizzy and tried to make it to her recliner but felt well before she got there. She reports another recent fall whenever she had not been using her walker. She denies any fevers or chills. She denies any chest pain or shortness of breath. She denies any cough. She denies any abdominal pain, nausea, vomiting. Source: patient Exam Limitations: no limitations Date Seen 07/03/20 Attending Physician Og Woodward MD PCP Rommel Morales DO Referring Physician Date of Admission Jul 02, 2020 at 11:48 Home Medications & Allergies Home Medications Reviewed patient Home Medication Reconciliation performed by pharmacy medication reconciliations oxygen equipment technician and/or nursing. Patients Allergies have been reviewed. Allergies Allergies Coded Allergies NKANo Known Allergies (Unverified Allergy, Mild, 09/23/09) amoxicillin (Verified Allergy, Unknown, pt has rec Rocephin and Ancef in the past, 07/02/20) clavulanic acid (Verified Allergy, Unknown, 07/02/20) morphine (Verified Adverse Reaction, Unknown, knocks her out, 03/16/20) Past Xhgpupf-Jztbrr-Aqumre Hx Past Med/Social Hx: Reviewed Nursing Past Med/Soc Hx Patient Social History Alcohol Use: Denies Use Recreational Drug Use: No Smoking Status: Never a Smoker Recent Foreign Travel: No Contact w/other who traveled: No Recent Hopitalizations: Yes (CYST/ABSCESS REMOVAL 08/2016) Recent Infectious Disease Expo: No Seasonal Allergies Seasonal Allergies: No Past Medical History Surgeries: Abdominal, Eye Surgery, Tonsillectomy Currently Using CPAP: No Currently Using BIPAP: No Cardiac: Atrial Fibrillation, Hypertension, Palpitations 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: No Menopausal Genitourinary: Kidney Stones Gastrointestinal: Abdominal Hernia Musculoskeletal: Arthritis HEENT: Cataract Psychosocial: Anxiety History of Blood Disorders: No Adverse Reaction to Blood [place]: No Family History Reviewed Nursing Family Hx Diabetes mellitus 20 MOTHER No Pertinent Family Hx Review of Systems Constitutional: dizziness EENTM: no symptoms reported Respiratory: no symptoms reported Cardiovascular: no symptoms reported Gastrointestinal: no symptoms reported Genitourinary: no symptoms reported Musculoskeletal: no symptoms reported Skin: no symptoms reported Psychiatric/Neurological: No Symptoms Reported Physical Exam Physical Exam Vital Signs Vital Signs - First Documented 07/02/20 07/02/20 09:01 09:30 Temp 36.1 Pulse 67 Resp 18 B/P (MAP) 146/64 (91) Pulse Ox 95 O2 Delivery Room Air O2 Flow Rate 2.00 Capillary Refill : Less Than 3 SecondsLess Than 3 Seconds Height, Weight, BMI Height: 5'5.00" Weight: 129lbs. 8.0oz. 58.188587ml; 21.92 BMI Method:Stated General Appearance: No Apparent Distress, WD/WN HEENT: PERRL/EOMI, Pharynx Normal Neck: Normal Inspection, Supple Respiratory: Lungs Clear, Normal Breath Sounds, No Respiratory Distress Cardiovascular: Regular Rate, Rhythm, No Edema, No Murmur Gastrointestinal: Normal Bowel Sounds, Non Tender, Soft Extremity: Non Tender, Pedal Edema Neurologic/Psychiatric: Alert, Oriented x3, No Motor/Sensory Deficits, Normal Mood/Affect Skin: Normal Color, Warm/Dry Results Results/Procedures Labs Laboratory Tests 07/02/20 09:05 07/03/20 05:17 Patient resulted labs reviewed. Imaging: Reviewed Imaging Report Assessment/Plan Assessment and Plan Assess & Plan/Chief Complaint Left hip fracture Ground-level fall Ortho primary underwent surgery 07/02 Pain regimen ordered Incentive spirometry Bowel regimen ordered PT/OT IRF evaluation atrial fibrillation holding anticoagulation Resume when okay with orthopedic surgery Hypertension GERD Anxiety continue home meds DVT prophylaxis: Lovenox Diagnosis/Problems Diagnosis/Problems (1) Closed left hip fracture Status: Acute Qualifiers: Encounter type: initial encounter Qualified Codes: S72.002A - Fracture of unspecified part of neck of left femur, initial encounter for closed fracture (2) Paroxysmal atrial fibrillation Status: Acute Clinical Quality Measures DVT/VTE Risk/Contraindication: Risk Factor Score Per Nursin RFS Level Per Nursing on Admit: 4+=Very High BUTCH READ MD Jul 03, 2020 12:48
--- NOTE | 2020-07-03 13:28 | Occupational Therapy Eval ---
OT Evaluation-General/PLF Medical Diagnosis Admission Date Jul 02, 2020 at 11:48 Medical Diagnosis: left hip fracture Onset Date: Jul 02, 2020 Therapy Diagnosis Therapy Diagnosis: Decreased ADL status Height/Weight Height (Feet): 5 Height (Inches): 5.00 Weight (Pounds): 129 Weight (Ounces): 8.0 Precautions Precautions/Isolations: Standard Precautions Weight Bear Status Weight Bearing Restriction: Weight Bearing/Tolerated Location Restriction: L LE Referral Physician: Trace Referral Reason: Activity Tolerance, Self Care, Evaluation/Treatment, Strengthening/ROM Medical History Pertinent Medical History: Atrial Fib, Arthritis Current History Pt fell after syncope episode, L hip fx with ERNESTO. Reviewed History: Yes Social History Home: Single Level Current Living Status: Alone Entry Into Home: Ramp ADL-Prior Level of Function SCALE: Activities may be completed with or without assistive devices. 5-Nyxhzjpvos-gtfqvlv completes the activity by him/herself with no assistance from a helper. 5-Set-up or Clean-up Assistance-helper sets up or cleans up; patient completes activity. [place] assists only prior to or following the activity. 4-Supervision or Touching Assistance-helper provides verbal cues and/or touching/steadying and/or contact guard assistance as patient completes activity. Assistance may be provided throughout the activity or intermittently. 3-Partial/Moderate Assistance-helper does LESS THAN HALF the effort. [place] lifts, holds or supports trunk or limbs, but provides less than half the effort. 2-Substantial/Maximal Assistance-helper does MORE THAN HALF the effort. [place] lifts or holds trunk or limbs and provides more than half the effort. 4-Wpedibkkz-quyyrq does ALL the effort. Patient does none of the effort to complete the activity. Or, the assistance of 2 or more helpers is required for the patient to complete the activity. If activity was not attempted, code reason: 7-Patient Refused. 9-Not Applicable-not attempted and the patient did not perform the activity before the current illness, exacerbation or injury. 10-Not Attempted due to Environmental Limitations-(lack of equipment, weather restraints, etc.). 88-Not Attempted due to Medical Conditions or Safety Concerns. ADL PLOF Comments Pt was IND with use of walker in home. Assist with IADLs from family (pt lives in mother in law home connected to son's home, pt receives assist/ company from daughter every day). Self Care: Independent Functional Cognition: Independent DME/Equipment: Bath Chair, Grab Bars, Shower DME/Equipment Comments w/c, walker, ramp Occupation: retired. Drive Self: No OT Current Status Subjective Pt seen in bed, alert/ awake and eating. Pt's daughter present. Pt states no pain in sit, pain in movement. Mental Status/Objective Patient Orientation: Person, Place, Situation, Normal For Age Attachments: Lord Catheter Current Hand Dominance: Right Upper Extremity ROM WFL BUE Upper Extremity Coordination WFL BUE Upper Extremity Sensation WFL BUE Upper Extremity Strength WFL (3+/5) ADL-Treatment Eating (QC): 6 Lower Body Dressing (QC): 1 (TD at this time based on clinical judgment and ) On/Off Footwear (QC): 1 Other Treatments Pt completes hx. states no pain. Pt agrees to sit EOB. Pt completes bed mob with max A toward EOB. Pt requires assist with precaution maintenance. Pt educated on movements and AE with verbal education. Pt sit to stand with min A, states dizziness. Pt educated on placing chairs around home for safety. Pt able to take ~5 steps to chair positioned EOB with all needs met, call light in reach. Pt educated on continuation of OT for successful d/c. Education OT Patient Education: Correct positioning Teaching Recipient: Patient, Family Teaching Methods: Demonstration, Discussion Response to Teaching: Verbalize Understanding, Return Demonstration, Reinforcement Needed OT Hotel Office Manager Goals Usp Goals Time Frame: Jul 10, 2020 Eating (QC): 6 Oral Hygiene (QC): 6 Toileting Hygiene (QC): 4 Shower/Bathe Self (QC): 4 Upper Body Dressing (QC): 6 Lower Body Dressing (QC): 3 On/Off Footwear (QC): 6 Additional Goals: 1-Demonstrate ADL Tasks, 2-Verbalize Understanding, 3- ImproveStrength/Syl 1=Demonstrate adherence to instructed precautions during ADL tasks. 2=Patient will verbalize/demonstrate understanding of assistive devices/modifications for ADL. 3=Patient will improve strength/tolerance for activity to enable patient to perform ADL's. OT Education/Plan Problem List/Assessment Assessment: Decreased Activ Tolerance, Decreased UE Strength, Dependent Transfers, Impaired Bed Mobility, Impaired Funct Balance, Impaired I ADL's, Impaired Self-Care Skills Discharge Recommendations Plan/Recommendations: Continue POC Therapy Discharge Recommendati: Home & Family, Post Acute OT Equpiment Recommendations-D/C: Hip Kit Treatment Plan/Plan of Care Treatment,Training & Education: Yes Patient would benefit from OT for education, treatment and training to promote independence in ADL's, mobility, safety and/or upper extremity function for ADL's. Plan of Care: ADL Retraining, Caregiver Training, Cognitive Retraining, Functional Mobility, UE Funct Exercise/Act, W/C Management Training Treatment Duration: Jul 10, 2020 Frequency: 5 times per week Estimated Hrs Per Day: .25 hour per day Rehab Potential: Fair Time/GCodes Start Time: 12:35 Stop Time: 13:00 Total Time Billed (hr/min): 25 Billed Treatment Time 1, MAGAN HAND (35) DUTCH HERNANDEZ OTR Jul 03, 2020 13:28
--- NOTE | 2020-07-03 14:41 | Physical Therapy Daily Note ---
PT Daily Note-Current Subjective Patient just complete with OT and agrees to PT. Pain Numeric Pain Scale: 8 Location: Left Location Body Site: Hip Pain Description: Acute Mental Status Patient Orientation: Normal For Age Attachments: Lord Catheter Transfers SCALE: Activities may be completed with or without assistive devices. 7-Lfwkjthtns-xpnqepx completes the activity by him/herself with no assistance from a helper. 5-Set-up or Clean-up Assistance-helper sets up or cleans up; patient completes activity. [place] assists only prior to or following the activity. 4-Supervision or Touching Assistance-helper provides verbal cues and/or touch ing/steadying and/or contact guard assistance as patient completes activity. Assistance may be provided throughout the activity or intermittently. 3-Partial/Moderate Assistance-helper does LESS THAN HALF the effort. [place] lifts, holds or supports trunk or limbs, but provides less than half the effort. 2-Substantial/Maximal Assistance-helper does MORE THAN HALF the effort. [place] lifts or holds trunk or limbs and provides more than half the effort. 3-Tnonpsiaa-qnjelt does ALL the effort. Patient does none of the effort to complete the activity. Or, the assistance of 2 or more helpers is required for the patient to complete the activity. If activity was not attempted, code reason: 7-Patient Refused. 9-Not Applicable-not attempted and the patient did not perform the activity before the current illness, exacerbation or injury. 10-Not Attempted due to Environmental Limitations-(lack of equipment, weather restraints, etc.). 88-Not Attempted due to Medical Conditions or Safety Concerns. Sit to Stand (QC): 3 Weight Bearing Right Lower Extremity: Right Weight Bearing/Tolerated Left Lower Extremity: Left Weight Bearing/Tolerated Gait Training Does the Patient Walk?: Yes Distance: 25' x 2 Walk 10 feet (QC): 3 Gait Assistive Device: FWW slow and antalgic Exercises Seated Therapy Exercises: Ankle pumps, Long arc quads, Hip flexion Seated Reps: 15 (2 sets) Assessment Patient tolerated treatment well and remains up in recliner with needs met. Plan to transfer to [facility] this weekend. PT Chcf Goals Chcf Goals PT Chcf Goals Time Frame: Jul 25, 2020 Roll Left & Right (QC): 6 Sit to Lying (QC): 6 Lying-Sitting on Side/Bed(QC): 6 Sit to Stand (QC): 6 Chair/Dwo-kv-Muyqb Xfer(QC): 6 Toilet Transfer (QC): 6 Car Transfer (QC): 6 Does the Patient Walk: Yes Walk 10 feet (QC): 6 Walk 50ft with 2 Turns (QC): 6 Walk 150 ft (QC): 6 Walking 10ft on Uneven Surface: 6 1 Step (curb) (QC): 6 4 Steps (QC): 6 PT Plan Treatment/Plan Treatment Plan: Continue Plan of Care Treatment Plan: Bed Mobility, Education, Functional Activity Syl, Functional Strength, Gait, Safety, Therapeutic Exercise, Transfers Treatment Duration: Jul 25, 2020 Frequency: 11 times per week Estimated Hrs Per Day: .5 hour per day Patient and/or Family Agrees t: Yes Time/GCodes Time In: 1305 Time Out: 1334 Total Billed Treatment Time: 29 Total Billed Treatment 1 visit GT 15 min EX 14 min ANAHI JOHNSON PT Jul 03, 2020 14:41
--- NOTE | 2020-07-03 15:20 | Progress Note - Cardiology ---
Cardiology SOAP Progress Note Subjective: No cp or palp or syncope or shortness of breath Gen weakness and malaise No focal weakness No n/v/d Objective: I&O/Vital Signs 07/03/20 07/03/20 07/03/20 07/03/20 04:00 07:54 08:07 11:51 Temp 36.9 36.8 37.3 Pulse 78 80 73 Resp 20 16 18 B/P (MAP) 133/68 (89) 129/70 (89) 129/68 (88) Pulse Ox 96 96 94 93 O2 Delivery Room Air Nasal Cannula Nasal Cannula Room Air O2 Flow Rate 2.00 2.00 07/03/20 00:00 Intake Total 80 ml Output Total 160 ml Balance -80 ml Weight (Pounds): 129 Weight (Ounces): 8.0 Weight (Calculated Kilograms): 58.961970 Constitutional: AAO x 3; No apparent distress; well-developed, well-nourished Respiratory: No accessory muscle use, No respiratory distress; chest expansion is symmetric, chest is bilaterally symmetric, lungs clear to auscultation Cardiovascular: regular rate-rhythm; No JVD; S1 and S2 Gastrointestional: soft, round, audible bowel sounds Extremities: other (mild L LE swelling (post op side)) Neurologic/Psychiatric: grossly intact (moves extremities) Skin: No rash on exposed areas, No ulcerations on exposed areas Results/Procedures: Labs Laboratory Tests 07/03/20 05:17: Hemoglobin 11.0L, Hematocrit 33L Laboratory Tests 07/02/20 09:05 07/03/20 05:17 A/P: Assessment: Syncopal episode of undetermined etiology Jul 02, 2020. No significant arrhythmia seen on ILR on 07/02/20 S/P L hip fracture repair per Dr. Woodward on Jul 02, 2020 following a syncopal fall S/p ILR on 03/24/20 (after syncope in March 2020) that has shown PAF w RVR w/o significant bradycardia so far Paroxysmal atrial flutter, first documented on tele strips on 02/11/18 Probable TIA on 02/11/18, resulting in transient R foot numbness/weakness leading to fall and fracture of the R 5th metatarsal, managed by her pcp Lena for stroke prophylaxis MPI of March 20, 2018 showed no evidence of ischemia or infarction. LVEF 80% Echocardiogram of February 12, 2018 showed LVEF 65-70%. Mild aortic regurg. Mod TR. PASP 35 mmHg. Trivial MR. Carotid u/s of 03/19/20 showed minimal bilat carotid plaque TSH normal (0.73) on lab work of 02/12/18 Plan: We reviewed her records, interviewed and examined her We had her ILR interrogated - no arrhythmia at time of syncope that led to hip fracture Continue OAC with Eliquis for stroke prophylaxis if OK with surgical services Monitor lab closely Further recs will be based on her hospital course AKHIL RODRIGUES MD FACP FACC CCDS Jul 03, 2020 15:20
[2020-07-03 16:07] VITALS: BP 130/65
[2020-07-03] MEDS: oxyCODONE/APAP 5/325MG (PERCOCET 5) TABLET PO PRN (16:19)
--- NOTE | 2020-07-03 19:45 | NUR ---
COVID RESULTS CAME BACK NOT DETECTED.
[2020-07-03 20:01] VITALS: BP_SYST 105; BP_SYST 140; BP_DIAS 54; BP_DIAS 64
[2020-07-03] MEDS: MELATONIN 3 MG TABLET PO PRN (21:28)
[2020-07-04] VITALS (9 sets, daily range): BP systolic 100–153; BP diastolic 37–68
[2020-07-04] MEDS: ACETAMINOPHEN 325 MG TABLET PO PRN ×2 (01:15→21:00)
[2020-07-04 06:25] LABS: HEMOGLOBIN 8.8 G/DL (11.5-16.0)
--- NOTE | 2020-07-04 08:00 | NUR ---
spoke with Dr Woodward regarding the hold on eliquis. stated he would like eliquis restarted and lovenox placed on hold. Pharmacy informed at this time
--- NOTE | 2020-07-04 08:03 | Progress Note ---
Standard Progress Note Progress Notes/Assess & Plan Date Seen by a Provider: Jul 04, 2020 Time Seen by a Provider: 08:02 Progress/Assessment & Plan no complaints reports minimal pain radiogrpahs--HW well well positioned without fracture LLE--no calf tenderness. Intact DF and PF of toes and ankle with intact sensation to light touch throughout s/p L hip bipolar mobilize IRU? Final Diagnosis no complaints Vital Signs Date Time Temp Pulse Resp B/P (MAP) Pulse Ox O2 Delivery O2 Flow Rate FiO2 07/04/20 04:00 37.0 73 18 111/61 (78) 94 Room Air 07/04/20 00:00 37.4 76 18 138/66 (90) 94 Room Air 07/03/20 20:01 37.5 73 20 140/64 (89) 95 Room Air 07/03/20 20:00 Room Air 07/03/20 16:07 36.7 80 20 130/65 (86) 93 Room Air 07/03/20 11:51 37.3 73 18 129/68 (88) 93 Room Air 07/03/20 08:07 94 Nasal Cannula 2.00 I & O 07/04/20 07:00 Intake Total 2130 ml Output Total 1075 ml Balance 1055 ml Laboratory Tests Test 07/04/20 05:40 Range/Units Hemoglobin 8.8 L 11.5-16.0 G/DL Hematocrit 26 L 35-52 % L hip incision clean and dry. No calf tenderness. Neg Whitney's s/p L hip bipolar continue PT/OT SILKE BRAGG MD Jul 04, 2020 08:03
[2020-07-04] MEDS: SENNOSIDES 8.6 MG (SENOKOT) TAB PO SCH ×2 (08:36→20:58)
[2020-07-04] MEDS: DOCUSATE SODIUM 100 MG (COLACE) CAP PO SCH ×2 (08:36→20:59)
[2020-07-04] MEDS: dilTIAZem120 MG (CARDIZEM CD) CAP PO SCH (08:36)
[2020-07-04] MEDS: PANTOPRAZOLE 20 MG TABLET (PROTONIX) PO SCH (08:36)
[2020-07-04] MEDS: APIXABAN 5 MG (ELIQUIS) TABLET PO SCH ×3 (08:38→20:59)
--- NOTE | 2020-07-04 09:08 | Physical Therapy Daily Note ---
PT Daily Note-Current Subjective States that she is feeling better. Pain Numeric Pain Scale: 0-No Pain Transfers SCALE: Activities may be completed with or without assistive devices. 2-Nntqtizzeq-vlwusin completes the activity by him/herself with no assistance from a helper. 5-Set-up or Clean-up Assistance-helper sets up or cleans up; patient completes activity. [place] assists only prior to or following the activity. 4-Supervision or Touching Assistance-helper provides verbal cues and/or touching/steadying and/or contact guard assistance as patient completes activity. Assistance may be provided throughout the activity or intermittently. 3-Partial/Moderate Assistance-helper does LESS THAN HALF the effort. [place] lifts, holds or supports trunk or limbs, but provides less than half the effort. 2-Substantial/Maximal Assistance-helper does MORE THAN HALF the effort. [place] lifts or holds trunk or limbs and provides more than half the effort. 2-Njzdwrxga-ybmtgl does ALL the effort. Patient does none of the effort to complete the activity. Or, the assistance of 2 or more helpers is required for the patient to complete the activity. If activity was not attempted, code reason: 7-Patient Refused. 9-Not Applicable-not attempted and the patient did not perform the activity before the current illness, exacerbation or injury. 10-Not Attempted due to Environmental Limitations-(lack of equipment, weather restraints, etc.). 88-Not Attempted due to Medical Conditions or Safety Concerns. Weight Bearing Right Lower Extremity: Right Weight Bearing/Tolerated Left Lower Extremity: Left Weight Bearing/Tolerated Gait Training Does the Patient Walk?: No and Walking Goal IS indicated No gait or transfers attempted secondary to dizziness while performing bed exercises. Exercises Supine Ex: LE Protocol Supine Reps: 20 Assessment Current Status: Good Progress Unable to attempt transfers today secondary to dizziness. PT Steel Pickler Goals Detention Goals PT Detention Goals Time Frame: Jul 25, 2020 Roll Left & Right (QC): 6 Sit to Lying (QC): 6 Lying-Sitting on Side/Bed(QC): 6 Sit to Stand (QC): 6 Chair/Bxt-zl-Rmgii Xfer(QC): 6 Toilet Transfer (QC): 6 Car Transfer (QC): 6 Does the Patient Walk: Yes Walk 10 feet (QC): 6 Walk 50ft with 2 Turns (QC): 6 Walk 150 ft (QC): 6 Walking 10ft on Uneven Surface: 6 1 Step (curb) (QC): 6 4 Steps (QC): 6 PT Plan Treatment/Plan Treatment Plan: Continue Plan of Care Treatment Plan: Bed Mobility, Education, Functional Activity Syl, Functional Strength, Gait, Safety, Therapeutic Exercise, Transfers Treatment Duration: Jul 25, 2020 Frequency: 11 times per week Estimated Hrs Per Day: .5 hour per day Patient and/or Family Agrees t: Yes Time/GCodes Time In: 849 Time Out: 904 Total Billed Treatment Time: 15 Total Billed Treatment 1, EX x 15' EDNA WEST PT Jul 04, 2020 09:08
[2020-07-04] MEDS ORDERED: NS IV 1000 ML 1,000 ML IV SCH (12:30)
[2020-07-04] MEDS ORDERED: DIGOXIN 0.125 MG (LANOXIN) TAB PO ONE (13:00)
--- NOTE | 2020-07-04 13:01 | Progress Note - Cardiology ---
Cardiology SOAP Progress Note Subjective: No cp or palp or syncope or shortness of breath at rest Gen weakness improving No n/v/d Objective: I&O/Vital Signs 07/04/20 07/04/20 07/04/20 07/04/20 04:00 08:00 08:12 10:46 Temp 37.0 37.3 Pulse 73 73 Resp 18 16 B/P (MAP) 111/61 (78) 108/53 (71) 125/58 (80) 130/68 (88) 100/37 (58) Pulse Ox 94 95 O2 Delivery Room Air Room Air Room Air 07/04/20 11:26 Temp 36.8 Pulse 72 Resp 16 B/P (MAP) 111/54 (73) Pulse Ox 94 O2 Delivery Room Air 07/04/20 00:00 Intake Total 1280 ml Output Total 675 ml Balance 605 ml Weight (Pounds): 129 Weight (Ounces): 8.0 Weight (Calculated Kilograms): 58.324677 Constitutional: AAO x 3; No apparent distress; well-developed, well-nourished Respiratory: No accessory muscle use, No respiratory distress; chest expansion is symmetric, chest is bilaterally symmetric, lungs clear to auscultation Cardiovascular: regular rate-rhythm; No JVD; S1 and S2 Gastrointestional: soft, round, audible bowel sounds Extremities: other (mild L LE swelling (post op side)) Neurologic/Psychiatric: grossly intact (moves extremities) Skin: No rash on exposed areas, No ulcerations on exposed areas Results/Procedures: Labs Laboratory Tests 07/04/20 05:40: Hemoglobin 8.8L, Hematocrit 26L Microbiology 07/02/20 MRSA Screen - Final, Complete Laboratory Tests 07/03/20 05:17 07/04/20 05:40 A/P: Assessment: Syncopal episode of undetermined etiology Jul 02, 2020, likely due to postural hypotension. No significant arrhythmia seen on ILR on 07/02/20 Orthostatic documented during this hospitalization of Jun 2020 S/P L hip fracture repair per Dr. Woodward on Jul 02, 2020 following a syncopal fall S/p ILR on 03/24/20 (after syncope in March 2020) that has shown PAF w RVR w/o significant bradycardia so far Paroxysmal atrial flutter, first documented on tele strips on 02/11/18 Probable TIA on 02/11/18, resulting in transient R foot numbness/weakness leading to fall and fracture of the R 5th metatarsal, managed by her pcp Lena for stroke prophylaxis MPI of March 20, 2018 showed no evidence of ischemia or infarction. LVEF 80% Echocardiogram of February 12, 2018 showed LVEF 65-70%. Mild aortic regurg. Mod TR. PASP 35 mmHg. Trivial MR. Carotid u/s of 03/19/20 showed minimal bilat carotid plaque TSH normal (0.73) on lab work of 02/12/18 Plan: Because of demonstration of orthostatic hypotension, we are stopping long-acting dilt. Will use dig for vent rate control during episodes of AF We had her ILR interrogated - no arrhythmia at time of syncope that led to hip fracture Continue OAC with Eliquis for stroke prophylaxis if OK with surgical services Monitor lab closely AKHIL RODRIGUES MD FACP FAC CCDS Jul 04, 2020 13:01
--- NOTE | 2020-07-04 13:03 | Progress Note - Hospitalist ---
Subjective HPI/CC On Admission Date Seen by Provider: Jul 04, 2020 Time Seen by Provider: 10:20 Murali Arroyo is an 89-year-old female with past history of hypertension, atrial fibrillation, GERD, seasonal allergies, anxiety, who presented after a fall and was admitted with a hip fracture. She reports that she is feeling lightheaded and dizzy and tried to make it to her recliner but felt well before she got there. She reports another recent fall whenever she had not been using her walker. She denies any fevers or chills. She denies any chest pain or shortness of breath. She denies any cough. She denies any abdominal pain, nausea, vomiting. Subjective/Events-last exam she reports feeling a bit dizzy today with physical therapy. She says that they did not want to get her out of bed because he was by himself and was worried about her falling. She has been eating and drinking well. She has no other complaints or concerns. She denies any pain. Objective Exam Vital Signs Vital Signs Date Time Temp Pulse Resp B/P (MAP) Pulse Ox O2 Delivery O2 Flow Rate FiO2 07/04/20 11:26 36.8 72 16 111/54 (73) 94 Room Air 07/03/20 08:07 2.00 Capillary Refill : Less Than 3 SecondsLess Than 3 Seconds General Appearance: No Apparent Distress, WD/WN Respiratory: Lungs Clear, Normal Breath Sounds, No Respiratory Distress Cardiovascular: Regular Rate, Rhythm, No Edema, No Murmur Gastrointestinal: Normal Bowel Sounds, Non Tender, Soft Extremity: Normal Inspection, Non Tender, No Pedal Edema Neurologic/Psychiatric: Alert, Oriented x3, Normal Mood/Affect, Motor Weakness Skin: Normal Color, Warm/Dry Results/Procedures Lab Laboratory Tests 07/04/20 05:40 Patient resulted labs reviewed. Imaging: Reviewed Imaging Report Assessment/Plan Assessment and Plan Assess & Plan/Chief Complaint Left hip fracture Ground-level fall Ortho primary underwent surgery 07/02 Pain regimen ordered Incentive spirometry Bowel regimen ordered PT/OT transfer to IRF today Orthostatic hypotension Hypertension Give 1 L normal saline today Continue to monitor hold antihypertensives atrial fibrillation continue Eliquis diltiazem held Continue digoxin GERD Anxiety continue home meds DVT prophylaxis: Lovenox Diagnosis/Problems Diagnosis/Problems (1) Closed left hip fracture Status: Acute Qualifiers: Encounter type: initial encounter Qualified Codes: S72.002A - Fracture of unspecified part of neck of left femur, initial encounter for closed fracture (2) Paroxysmal atrial fibrillation Status: Acute Clinical Quality Measures DVT/VTE Risk/Contraindication: Risk Factor Score Per Nursin RFS Level Per Nursing on Admit: 4+=Very High BUTCH READ MD Jul 04, 2020 13:03
[2020-07-04] MEDS ORDERED: ALPRAZolam 0.25 MG (XANAX) TAB ONE (20:54)
[2020-07-04] MEDS: ALPRAZolam 0.25 MG (XANAX) TAB PO SCH (21:02)
--- NOTE | 2020-07-05 02:45 | NUR ---
Gave report to CARMELLA Chi
--- NOTE | 2020-07-05 02:46 | NUR ---
ASSUMED CARE FROM CARMELLA COFFEY. PT ASSESSED AT THIS TIME, AGREE WITH PREVIOUS ASSESSMENT. DRESSING C/D/I. PT DENIES PAINS. NEEDS MET AT THIS TIME. WILL CONTINUE TO MONITOR
[2020-07-05 03:51] VITALS: BP 141/63
[2020-07-05 07:35] VITALS: BP 157/73
--- NOTE | 2020-07-05 08:27 | Progress Note ---
Standard Progress Note Progress Notes/Assess & Plan Date Seen by a Provider: Jul 05, 2020 Time Seen by a Provider: 08:26 Progress/Assessment & Plan no complaints reports minimal pain radiogrpahs--HW well well positioned without fracture LLE--no calf tenderness. Intact DF and PF of toes and ankle with intact sensation to light touch throughout s/p L hip bipolar mobilize IRU? Final Diagnosis no complaints Vital Signs Date Time Temp Pulse Resp B/P (MAP) Pulse Ox O2 Delivery O2 Flow Rate FiO2 07/05/20 07:35 37.3 98 16 157/73 (101) 92 Room Air 07/05/20 03:51 36.8 88 18 141/63 (89) 93 Room Air 07/04/20 23:51 36.8 87 18 133/63 (86) 91 Room Air 07/04/20 21:00 37.6 07/04/20 20:11 Room Air 07/04/20 20:01 37.6 87 18 153/65 (94) 91 Room Air 07/04/20 16:00 37.0 75 18 140/64 (89) 92 Room Air 07/04/20 14:10 36.8 72 16 111/54 94 Room Air 07/04/20 11:26 36.8 72 16 111/54 (73) 94 Room Air 07/04/20 10:46 125/58 (80) 130/68 (88) 100/37 (58) I & O 07/05/20 07:00 Intake Total 1510 ml Output Total 1000 ml Balance 510 ml L hip dressing clean and dry. No calf tenderness s/p L hip bipolar PT/OT to IRU when approved SILKE BRAGG MD Jul 05, 2020 08:27
--- NOTE | 2020-07-05 08:45 | Physical Therapy Daily Note ---
PT Daily Note-Current Subjective States that she thinks that she is a little better today. Transfers SCALE: Activities may be completed with or without assistive devices. 3-Zledsbfapi-yqopdon completes the activity by him/herself with no assistance from a helper. 5-Set-up or Clean-up Assistance-helper sets up or cleans up; patient completes activity. [place] assists only prior to or following the activity. 4-Supervision or Touching Assistance-helper provides verbal cues and/or touching/steadying and/or contact guard assistance as patient completes activity. Assistance may be provided throughout the activity or intermittently. 3-Partial/Moderate Assistance-helper does LESS THAN HALF the effort. [place] lifts, holds or supports trunk or limbs, but provides less than half the effort. 2-Substantial/Maximal Assistance-helper does MORE THAN HALF the effort. [place] lifts or holds trunk or limbs and provides more than half the effort. 1-Mrsragfkg-zkekcz does ALL the effort. Patient does none of the effort to complete the activity. Or, the assistance of 2 or more helpers is required for the patient to complete the activity. If activity was not attempted, code reason: 7-Patient Refused. 9-Not Applicable-not attempted and the patient did not perform the activity before the current illness, exacerbation or injury. 10-Not Attempted due to Environmental Limitations-(lack of equipment, weather restraints, etc.). 88-Not Attempted due to Medical Conditions or Safety Concerns. Roll Left & Right (QC): 3 Sit to Lying (QC): 3 Lying to Sitting/Side of Bed(Q: 3 Sit to Stand (QC): 3 Weight Bearing Right Lower Extremity: Right Weight Bearing/Tolerated Left Lower Extremity: Left Weight Bearing/Tolerated Gait Training Does the Patient Walk?: No and Walking Goal IS indicated Distance: 0 Walk 10 feet (QC): 88 Walk 50 ft with 2 Turns(QC): 88 Walk 150 ft (QC): 88 Walking 10ft/uneven surface-QC: 88 Gait Persons Needed: 1 Gait Assistive Device: Handheld Assist Patient again had dizziness upon standing and was unable to take steps Exercises Supine Ex: LE Protocol Supine Reps: 20 Assessment Current Status: Good Progress Patient continues to have dizziness with transitional movements and exertion. PT Detention Goals Digital Media Director Goals PT Digital Media Director Goals Time Frame: Jul 25, 2020 Roll Left & Right (QC): 6 Sit to Lying (QC): 6 Lying-Sitting on Side/Bed(QC): 6 Sit to Stand (QC): 6 Chair/Qbt-uu-Mmzsp Xfer(QC): 6 Toilet Transfer (QC): 6 Car Transfer (QC): 6 Does the Patient Walk: Yes Walk 10 feet (QC): 6 Walk 50ft with 2 Turns (QC): 6 Walk 150 ft (QC): 6 Walking 10ft on Uneven Surface: 6 1 Step (curb) (QC): 6 4 Steps (QC): 6 PT Plan Treatment/Plan Treatment Plan: Continue Plan of Care Treatment Plan: Bed Mobility, Education, Functional Activity Syl, Functional Strength, Gait, Safety, Therapeutic Exercise, Transfers Treatment Duration: Jul 25, 2020 Frequency: 11 times per week Estimated Hrs Per Day: .5 hour per day Patient and/or Family Agrees t: Yes Time/GCodes Time In: 811 Time Out: 836 Total Billed Treatment Time: 25 Total Billed Treatment 1, FA x 10, EX x 15 EDNA WEST PT Jul 05, 2020 08:45
[2020-07-05] MEDS: DIGOXIN 0.125 MG (LANOXIN) TAB PO SCH (08:59)
[2020-07-05] MEDS: APIXABAN 5 MG (ELIQUIS) TABLET PO SCH ×2 (09:00→20:51)
[2020-07-05] MEDS: SENNOSIDES 8.6 MG (SENOKOT) TAB PO SCH ×2 (09:00→20:51)
[2020-07-05] MEDS: PANTOPRAZOLE 20 MG TABLET (PROTONIX) PO SCH (09:00)
[2020-07-05] MEDS: DOCUSATE SODIUM 100 MG (COLACE) CAP PO SCH ×2 (09:00→20:52)
[2020-07-05 09:16] LABS: HEMOGLOBIN 8.8 G/DL (11.5-16.0)
--- NOTE | 2020-07-05 13:05 | Progress Note - Hospitalist ---
Subjective HPI/CC On Admission Date Seen by Provider: Jul 05, 2020 Time Seen by Provider: 11:10 Murali Arroyo is an 89-year-old female with past history of hypertension, atrial fibrillation, GERD, seasonal allergies, anxiety, who presented after a fall and was admitted with a hip fracture. She reports that she is feeling lightheaded and dizzy and tried to make it to her recliner but felt well before she got there. She reports another recent fall whenever she had not been using her walker. She denies any fevers or chills. She denies any chest pain or shortness of breath. She denies any cough. She denies any abdominal pain, nausea, vomiting. Subjective/Events-last exam she reports being sleepy today. She had some pain when she got out of bed. She says she is not having any pain as long as she does not move. She says her temperature was elevated. She denies any shortness of breath or cough. She denies any abdominal pain. She has no other complaints or concerns. Objective Exam Vital Signs Vital Signs Date Time Temp Pulse Resp B/P (MAP) Pulse Ox O2 Delivery O2 Flow Rate FiO2 07/05/20 07:35 37.3 98 16 157/73 (101) 92 Room Air 07/03/20 08:07 2.00 Capillary Refill : Less Than 3 SecondsLess Than 3 Seconds General Appearance: No Apparent Distress, WD/WN Respiratory: Lungs Clear, Normal Breath Sounds, No Respiratory Distress Cardiovascular: Regular Rate, Rhythm, No Edema, No Murmur Gastrointestinal: Normal Bowel Sounds, Non Tender, Soft Extremity: Normal Inspection, Non Tender, Pedal Edema Neurologic/Psychiatric: Alert, Oriented x3, Normal Mood/Affect Skin: Normal Color, Warm/Dry Results/Procedures Lab Laboratory Tests 07/05/20 09:03 Patient resulted labs reviewed. Imaging: Reviewed Imaging Report Assessment/Plan Assessment and Plan Assess & Plan/Chief Complaint Left hip fracture Ground-level fall Ortho primary underwent surgery 07/02 Pain regimen ordered Incentive spirometry Bowel regimen ordered PT/OT Await IRF approval vs SNF Hypertension resume Cardizem atrial fibrillation continue Eliquis resume Cardizem Continue digoxin GERD Anxiety continue home meds DVT prophylaxis: Lovenox Orthostatic hypotension, resolved Diagnosis/Problems Diagnosis/Problems (1) Closed left hip fracture Status: Acute Qualifiers: Encounter type: initial encounter Qualified Codes: S72.002A - Fracture of unspecified part of neck of left femur, initial encounter for closed fracture (2) Paroxysmal atrial fibrillation Status: Acute Clinical Quality Measures DVT/VTE Risk/Contraindication: Risk Factor Score Per Nursin RFS Level Per Nursing on Admit: 4+=Very High BUTCH READ MD Jul 05, 2020 13:05
[2020-07-05] MEDS ORDERED: MILK OF MAGNESIA 400 MG/5 ML 30 ML UDC PO ONE (13:15)
--- NOTE | 2020-07-05 13:30 | Progress Note - Cardiology ---
Cardiology SOAP Progress Note Subjective: Notes gen malaise and weakness No cp or shortness of breath No palp or syncope No n/v/d Objective: I&O/Vital Signs 07/05/20 07/05/20 03:51 07:35 Temp 36.8 37.3 Pulse 88 98 Resp 18 16 B/P (MAP) 141/63 (89) 157/73 (101) Pulse Ox 93 92 O2 Delivery Room Air Room Air 07/04/20 23:59 Intake Total 1500 ml Output Total 550 ml Balance 950 ml Weight (Pounds): 129 Weight (Ounces): 8.0 Weight (Calculated Kilograms): 58.702551 Constitutional: AAO x 3; No apparent distress; well-developed, well-nourished Respiratory: No accessory muscle use, No respiratory distress; chest expansion is symmetric, chest is bilaterally symmetric, lungs clear to auscultation Cardiovascular: regular rate-rhythm; No JVD; S1 and S2 Gastrointestional: soft, round, audible bowel sounds Extremities: other (mild L LE swelling (post op side)) Neurologic/Psychiatric: grossly intact (moves extremities) Skin: No rash on exposed areas, No ulcerations on exposed areas Results/Procedures: Labs Laboratory Tests 07/05/20 09:03: Hemoglobin 8.8L, Hematocrit 26L Microbiology 07/02/20 MRSA Screen - Final, Complete Laboratory Tests 07/04/20 05:40 07/05/20 09:03 A/P: Assessment: Labile hypertension and episodes of orthostatic hypotension (demonstrated during this hospitalization) Syncopal episode of undetermined etiology Jul 02, 2020, likely due to postural hypotension. No significant arrhythmia seen on ILR on 07/02/20 S/P L hip fracture repair per Dr. Woodward on Jul 02, 2020 following a syncopal fall S/p ILR on 03/24/20 (after syncope in March 2020) that has shown PAF w RVR w/o significant bradycardia so far Paroxysmal atrial flutter, first documented on tele strips on 02/11/18 Probable TIA on 02/11/18, resulting in transient R foot numbness/weakness leading to fall and fracture of the R 5th metatarsal, managed by her pcp Lena for stroke prophylaxis MPI of March 20, 2018 showed no evidence of ischemia or infarction. LVEF 80% Echocardiogram of February 12, 2018 showed LVEF 65-70%. Mild aortic regurg. Mod TR. PASP 35 mmHg. Trivial MR. Carotid u/s of 03/19/20 showed minimal bilat carotid plaque TSH normal (0.73) on lab work of 02/12/18 Plan: Because of demonstration of orthostatic hypotension, we have stopped long-acting dilt and are using dig for vent rate control during episodes of AF Continue OAC with Eliquis for stroke prophylaxis Monitor lab closely I discussed her CV issues with her and one of her daughters today AKHIL RODRIGUES MD FACP FAC CCDS Jul 05, 2020 13:30
[2020-07-05] MEDS ORDERED: dilTIAZem120 MG (CARDIZEM CD) CAP PO ONE (14:15)
[2020-07-05 16:00] VITALS: BP 141/73
[2020-07-05] MEDS: ONDANSETRON 4 MG/2 ML (SDV) Z0FRAN IV PRN (20:51)
[2020-07-05] MEDS: MELATONIN 3 MG TABLET PO PRN (20:51)
[2020-07-05] MEDS: ALPRAZolam 0.25 MG (XANAX) TAB PO SCH (20:51)
[2020-07-05 23:31] VITALS: BP 136/79
--- NOTE | 2020-07-06 00:46 | DISCHARGE SUMMARY ---
DATE OF SERVICE: DIAGNOSES: 1. Left femoral neck fracture. 2. Atrial fibrillation. 3. Hypertension. 4. Nephrolithiasis. PROCEDURE: Left hip bipolar replacement. SUMMARY: The patient is an 89-year-old female, who fell at home prior to admission. She was admitted for a displaced left femoral neck fracture. She underwent bipolar replacement without complications. At time of discharge, her wound was clean and dry. She had no calf tenderness. Negative Homans sign. She was progressing well with physical therapy. CONDITION AT DISCHARGE: Good. DISCHARGE DIET: Regular. DISPOSITION: Transferred to the inpatient rehabilitation unit for continued physical and occupational therapy. Job ID: [id number] DocumentID: [id number] Dictated Date: 07/05/2020 08:32:41 Rough And Truing Machine Operator Date: 07/06/2020 00:46:16 Dictated By: SILKE BRAGG MD
[2020-07-06 08:00] VITALS: BP 137/75
[2020-07-06] MEDS: DOCUSATE SODIUM 100 MG (COLACE) CAP PO SCH ×2 (10:03→22:15)
[2020-07-06] MEDS: DIGOXIN 0.125 MG (LANOXIN) TAB PO SCH (10:04)
[2020-07-06] MEDS: APIXABAN 5 MG (ELIQUIS) TABLET PO SCH ×2 (10:04→22:16)
[2020-07-06] MEDS: PANTOPRAZOLE 20 MG TABLET (PROTONIX) PO SCH (10:04)
[2020-07-06] MEDS: SENNOSIDES 8.6 MG (SENOKOT) TAB PO SCH ×2 (10:04→22:15)
[2020-07-06] MEDS: dilTIAZem120 MG (CARDIZEM CD) CAP PO SCH (10:04)
--- NOTE | 2020-07-06 10:54 | NUR ---
IRF Received notification of denial for admission from [facility]. CM/SS notified.
--- NOTE | 2020-07-06 10:57 | Progress Note - Hospitalist ---
Subjective HPI/CC On Admission Date Seen by Provider: Jul 06, 2020 Time Seen by Provider: 10:52 Murali Arroyo is an 89-year-old female with past history of hypertension, atrial fibrillation, GERD, seasonal allergies, anxiety, who presented after a fall and was admitted with a hip fracture. She reports that she is feeling lightheaded and dizzy and tried to make it to her recliner but felt well before she got there. She reports another recent fall whenever she had not been using her walker. She denies any fevers or chills. She denies any chest pain or shortness of breath. She denies any cough. She denies any abdominal pain, nausea, vomiting. Subjective/Events-last exam Pt reports feeling well. No complaints of pain. She does have some soreness onf her month where her tooth rubs though. Per RN she did get lightheaded and have a syncopal episode with PT. Objective Exam Vital Signs Vital Signs Date Time Temp Pulse Resp B/P (MAP) Pulse Ox O2 Delivery O2 Flow Rate FiO2 07/06/20 08:00 37.3 87 18 137/75 (95) 94 Room Air 07/03/20 08:07 2.00 Capillary Refill : Less Than 3 SecondsLess Than 3 Seconds General Appearance: No Apparent Distress, Chronically ill Respiratory: Lungs Clear, No Respiratory Distress Cardiovascular: Regular Rate, Rhythm, No Murmur Neurologic/Psychiatric: Alert, Oriented x3 Results/Procedures Lab Patient resulted labs reviewed. Imaging: Reviewed Imaging Report Assessment/Plan Assessment and Plan Assess & Plan/Chief Complaint Left hip fracture Ground-level fall Ortho primary underwent surgery 07/02 Pain regimen ordered, pain well controlled Incentive spirometry Bowel regimen PT/OT Declined IRF, will need to evaluate for SNF - Vegetable Loader aware Hypertension Cont Cardizem atrial fibrillation continue Eliquis, cardizem, anddigoxin GERD Anxiety continue home meds DVT prophylaxis: Lovenox Orthostatic hypotension, resolved Clinical Quality Measures DVT/VTE Risk/Contraindication: Risk Factor Score Per Nursin RFS Level Per Nursing on Admit: 4+=Very High MARIA M SHAFFER MD Jul 06, 2020 10:57
--- NOTE | 2020-07-06 11:45 | Physical Therapy Daily Note ---
PT Daily Note-Current Subjective Patient agrees to PT. Continues to c/o dizziness with position change. Pain Numeric Pain Scale: 5-Moderate Pain Location: Left Location Body Site: Hip Pain Description: Acute Mental Status Patient Orientation: Normal For Age Attachments: Lord Catheter Transfers SCALE: Activities may be completed with or without assistive devices. 4-Ulgbpqwczs-ixgulhf completes the activity by him/herself with no assistance from a helper. 5-Set-up or Clean-up Assistance-helper sets up or cleans up; patient completes activity. [place] assists only prior to or following the activity. 4-Supervision or Touching Assistance-helper provides verbal cues and/or touching/steadying and/or contact guard assistance as patient completes activity. Assistance may be provided throughout the activity or intermittently. 3-Partial/Moderate Assistance-helper does LESS THAN HALF the effort. [place] lifts, holds or supports trunk or limbs, but provides less than half the effort. 2-Substantial/Maximal Assistance-helper does MORE THAN HALF the effort. [place] lifts or holds trunk or limbs and provides more than half the effort. 9-Yupetjgij-xqgyuh does ALL the effort. Patient does none of the effort to complete the activity. Or, the assistance of 2 or more helpers is required for the patient to complete the activity. If activity was not attempted, code reason: 7-Patient Refused. 9-Not Applicable-not attempted and the patient did not perform the activity before the current illness, exacerbation or injury. 10-Not Attempted due to Environmental Limitations-(lack of equipment, weather restraints, etc.). 88-Not Attempted due to Medical Conditions or Safety Concerns. Lying to Sitting/Side of Bed(Q: 3 Sit to Stand (QC): 2 Chair/Wdm-cm-Fifab Xfer(QC): 2 Weight Bearing Right Lower Extremity: Right Weight Bearing/Tolerated Left Lower Extremity: Left Weight Bearing/Tolerated Gait Training Does the Patient Walk?: Yes Distance: 20' Walk 10 feet (QC): 2 Gait Assistive Device: FWW step to gait sequence Exercises Supine Ex: Ankle pumps, Quad Set, Heel Slides Supine Reps: 12 Seated Therapy Exercises: Long arc quads Seated Reps: 12 Assessment At the end of the session, patient had LOC in recliner. PT reclined chair in CPR mode and elevated bilateral LE's and perform sternal rub. Tech retrieved vitals machine as PT called 440 for rapid response due to patient not responding. After 1-2 minutes, patient did regain consciousness and vitals were taken with BP 135/63, SAO2 RA 96% and HR 80. Rapid response did not come. Salon Assistant notified. Patient alert in recliner with RN present to continue assessment. PT Business Performance Advisor Goals Shelter Goals PT Business Performance Advisor Goals Time Frame: Jul 25, 2020 Roll Left & Right (QC): 6 Sit to Lying (QC): 6 Lying-Sitting on Side/Bed(QC): 6 Sit to Stand (QC): 6 Chair/Ppz-gl-Drukw Xfer(QC): 6 Toilet Transfer (QC): 6 Car Transfer (QC): 6 Does the Patient Walk: Yes Walk 10 feet (QC): 6 Walk 50ft with 2 Turns (QC): 6 Walk 150 ft (QC): 6 Walking 10ft on Uneven Surface: 6 1 Step (curb) (QC): 6 4 Steps (QC): 6 PT Plan Treatment/Plan Treatment Plan: Continue Plan of Care Treatment Plan: Bed Mobility, Education, Functional Activity Syl, Functional Strength, Gait, Safety, Therapeutic Exercise, Transfers Treatment Duration: Jul 25, 2020 Frequency: 11 times per week Estimated Hrs Per Day: .5 hour per day Patient and/or Family Agrees t: Yes Time/GCodes Time In: 1010 Time Out: 1033 Total Billed Treatment Time: 23 Total Billed Treatment 1 visit EX 12 min GT 11 min ANAHI JOHNSON PT Jul 06, 2020 11:45
--- NOTE | 2020-07-06 12:06 | Occupational Ther Daily Note ---
OT Current Status-Daily Note Subjective Pt seated in recliner, agreeable to OT Tx. Pt denied pain but reports more of a "discomfort". Mental Status/Objective Patient Orientation: Person ADL-Treatment Therapy Code Descriptions/Definitions Functional [place] Measure: 0=Not Assessed/NA 4=Minimal Assistance 1=Total Assistance 5=Supervision or Setup 2=Maximal Assistance 6=Modified [place] 3=Moderate Assistance 7=Complete IndependenceSCALE: Activities may be completed with or without assistive devices. 5-Nekilnonez-asxdmpn completes the activity by him/herself with no assistance from a helper. 5-Set-up or Clean-up Assistance-helper sets up or cleans up; patient completes activity. [place] assists only prior to or following the activity. 4-Supervision or Touching Assistance-helper provides verbal cues and/or touching/steadying and/or contact guard assistance as patient completes activity. Assistance may be provided throughout the activity or intermittently. 3-Partial/Moderate Assistance-helper does LESS THAN HALF the effort. [place] lifts, holds or supports trunk or limbs, but provides less than half the effort. 2-Substantial/Maximal Assistance-helper does MORE THAN HALF the effort. [place] lifts or holds trunk or limbs and provides more than half the effort. 1-Cuskhvwsz-coraut does ALL the effort. Patient does none of the effort to complete the activity. Or, the assistance of 2 or more helpers is required for the patient to complete the activity. If activity was not attempted, code reason: 7-Patient Refused. 9-Not Applicable-not attempted and the patient did not perform the activity before the current illness, exacerbation or injury. 10-Not Attempted due to Environmental Limitations-(lack of equipment, weather restraints, etc.). 88-Not Attempted due to Medical Conditions or Safety Concerns. Other Treatment Pt seated in recliner, agreeable to OT tx with focus on ADLS. Pt washed her face with set up/clean up assistance. OT then encouraged pt to brush her teeth but pt declined, stating her dentures are soaking on the table and she does not want to put them in at this time, although OT informed pt lunch will be there shortly. Pt reports she just wants to rest since she is very tired today, she does not want to complete and UE exercises. OT educated pt about purpose and benefits of OT Tx, but pt still declines further activities. OT assisted pt with getting comfortable in her recliner. Post OT Tx, pt seated in recliner, call light in reach and all needs met. Education OT Patient Education: Correct positioning, Energy conservation, Modified ADL techniques, Progress toward Goal/Update tx plan, Purpose of tx/functional activities Teaching Recipient: Patient Teaching Methods: Discussion Response to Teaching: Verbalize Understanding OT Janitor Supervisor Goals Nursing Home Goals Time Frame: Jul 10, 2020 Eating (QC): 6 Oral Hygiene (QC): 6 Toileting Hygiene (QC): 4 Shower/Bathe Self (QC): 4 Upper Body Dressing (QC): 6 Lower Body Dressing (QC): 3 On/Off Footwear (QC): 6 Additional Goals: 1-Demonstrate ADL Tasks, 2-Verbalize Understanding, 3- ImproveStrength/Syl 1=Demonstrate adherence to instructed precautions during ADL tasks. 2=Patient will verbalize/demonstrate understanding of assistive devices/modifications for ADL. 3=Patient will improve strength/tolerance for activity to enable patient to perform ADL's. OT Education/Plan Problem List/Assessment Assessment: Decreased Activ Tolerance, Decreased UE Strength, Impaired Funct Balance, Impaired I ADL's, Impaired Self-Care Skills Discharge Recommendations Plan/Recommendations: Continue POC Treatment Plan/Plan of Care Patient would benefit from OT for education, treatment and training to promote independence in ADL's, mobility, safety and/or upper extremity function for ADL's. Plan of Care: ADL Retraining, Caregiver Training, Cognitive Retraining, Functional Mobility, UE Funct Exercise/Act, W/C Management Training Treatment Duration: Jul 10, 2020 Frequency: 5 times per week Estimated Hrs Per Day: .25 hour per day Rehab Potential: Fair Time/GCodes Start Time: 11:38 Stop Time: 11:48 Total Time Billed (hr/min): 10 Billed Treatment Time 1, ADL FRITZ MUIR OT Jul 06, 2020 12:06
--- NOTE | 2020-07-06 12:13 | NUR ---
Patient's [employer] insurance has denied Inpatient Rehabilitation request. Visited with Destiny about alternative level of care and she would like to have me visit with her Daughter in law Latesha Arroyo and/or her son Jeffrey about their choice of longterm home. Destiny's only request is that she not go back to [facility]. Visited with Latesha about insurance denial. Latesha voiced frustration with the insurance and also voiced that the patient really wanted to go to Inpatient Rehabliliation and get home much sooner to her prior independent level of function. Listened and agreed with Latesha's voiced concerns. Destiny has had a left hip fracture that has been repaired and has been doing well with therapy. I'm not clear as to why the insurance would deny IRF. Latesha did ask why they denied and I could not answer that for her. The [facility] are still restricting visitor's which is a big concern for Latesha, understandably. Latesha is going to visit with the patient's other daughter et will let me know what they have decided for continue care this evening. Addendum: 07/06/20 at 1235 by CARLOS ELAINE RN [facility] does have female beds available.
--- NOTE | 2020-07-06 13:30 | NUR ---
"RD ASSESSMENT PMHx: afib; HTN PT INTERACTION: Pt was awake and pleasant during nutrition assessment. Pt states current appetite is good. Note avg PO intake of 50-75% x2d, per chart review. Pt states following a regular diet at home, but avoids caffeine and chocolate. Pt states no issues with chewing/swallowing food. Pt states some recent issues with nausea, but not vomiting, constipation, or diarrhea, and that she hasn't had a BM since her surgery. Note pt currently on bowel regimen of colace BID; and senna BID, per chart review. Pt states not sure of recent wt changes. Note recent 8# wt gain x3mon, per chart review. ABNORMAL NUTRITION-RELATED LAB VALUES LOW: Na 134 HIGH: glu 131 Est. kcal needs: 1625 kcal | 25 kcal/kg Est. Pro needs: 52 g Pro | 0.8 g Pro/kg PES STATEMENT: Inadequate oral intake (NI-2.1) related to nausea as evidenced by pt interview | avg PO intake 50-75% x2d INTERVENTION: Continue with current diet order of Regular diet. Pt may benefit from nutrition supplementation if PO intake declines. Encouraged pt to eat when able. Will continue to follow and reassess as pt needs, intake, and status change. MONITOR/EVALUATE: PO Intake; Plan of Care; Hydration Status; Weight Status; Lab Values Stephanie Andrews, MS, RD, LD"
--- NOTE | 2020-07-06 14:06 | Physical Therapy Daily Note ---
PT Daily Note-Current Subjective Patient declined OOB activity due to dizziness and fatigue. Pain Numeric Pain Scale: 5-Moderate Pain Location: Left Location Body Site: Hip Pain Description: Acute Transfers SCALE: Activities may be completed with or without assistive devices. 7-Zjypnkeiau-qtpopxf completes the activity by him/herself with no assistance from a helper. 5-Set-up or Clean-up Assistance-helper sets up or cleans up; patient completes a ctivity. [place] assists only prior to or following the activity. 4-Supervision or Touching Assistance-helper provides verbal cues and/or touching/steadying and/or contact guard assistance as patient completes activity. Assistance may be provided throughout the activity or intermittently. 3-Partial/Moderate Assistance-helper does LESS THAN HALF the effort. [place] lifts, holds or supports trunk or limbs, but provides less than half the effort. 2-Substantial/Maximal Assistance-helper does MORE THAN HALF the effort. [place] lifts or holds trunk or limbs and provides more than half the effort. 0-Xxlnnvheu-gwrnqm does ALL the effort. Patient does none of the effort to complete the activity. Or, the assistance of 2 or more helpers is required for the patient to complete the activity. If activity was not attempted, code reason: 7-Patient Refused. 9-Not Applicable-not attempted and the patient did not perform the activity before the current illness, exacerbation or injury. 10-Not Attempted due to Environmental Limitations-(lack of equipment, weather restraints, etc.). 88-Not Attempted due to Medical Conditions or Safety Concerns. Weight Bearing Right Lower Extremity: Right Weight Bearing/Tolerated Left Lower Extremity: Left Weight Bearing/Tolerated Exercises Supine Ex: Ankle pumps, Quad Set, Heel Slides Supine Reps: 12 (2 sets) Assessment Patient remained in bed with needs met. Continues to c/o dizziness with position change. PT Photoengraving Helper Goals Photoengraving Helper Goals PT Photoengraving Helper Goals Time Frame: Jul 25, 2020 Roll Left & Right (QC): 6 Sit to Lying (QC): 6 Lying-Sitting on Side/Bed(QC): 6 Sit to Stand (QC): 6 Chair/Gly-au-Rdoos Xfer(QC): 6 Toilet Transfer (QC): 6 Car Transfer (QC): 6 Does the Patient Walk: Yes Walk 10 feet (QC): 6 Walk 50ft with 2 Turns (QC): 6 Walk 150 ft (QC): 6 Walking 10ft on Uneven Surface: 6 1 Step (curb) (QC): 6 4 Steps (QC): 6 PT Plan Treatment/Plan Treatment Plan: Continue Plan of Care Treatment Plan: Bed Mobility, Education, Functional Activity Syl, Functional Strength, Gait, Safety, Therapeutic Exercise, Transfers Treatment Duration: Jul 25, 2020 Frequency: 11 times per week Estimated Hrs Per Day: .5 hour per day Patient and/or Family Agrees t: Yes Time/GCodes Time In: 1340 Time Out: 1352 Total Billed Treatment Time: 12 Total Billed Treatment 1 visit FA 12 min ANAHI JOHNSON PT Jul 06, 2020 14:06
[2020-07-06 14:08] LABS: HEMOGLOBIN 9.4 G/DL (11.5-16.0); MEAN PLATELET VOLUME 9.6 FL (7.4-10.4); RED CELL DISTRIBUTION WIDTH 13.2 % (10.0-14.5); WHITE BLOOD COUNT 10.3 10^3/uL (4.3-11.0)
[2020-07-06 14:23] LABS: BUN/CREATININE RATIO 20; CALCIUM 8.3 MG/DL (8.5-10.1); CARBON DIOXIDE 27 MMOL/L (21-32); CHLORIDE 95 MMOL/L (98-107); GFR ESTIMATED > 60; GLUCOSE 128 MG/DL (70-105); POTASSIUM 4.4 MMOL/L (3.6-5.0); SODIUM 130 MMOL/L (135-145)
--- NOTE | 2020-07-06 15:30 | NUR ---
Dr. Rutledge has agreed to appeal the denial for Inpatient Rehab. Spoke with KRISTINE to set up peer to peer opt 4. Peer to peer set up for tomorrow 07/07/[address] Goldberg. Pending auth number is [id number].
[2020-07-06 15:58] VITALS: BP 159/72
--- NOTE | 2020-07-06 16:18 | Progress Note - Cardiology ---
Cardiology SOAP Progress Note Subjective: Postural dizziness better No cp or palp or shortness of breath No syncope since admission No n/v/d Objective: I&O/Vital Signs 07/06/20 07/06/20 07/06/20 08:00 08:00 15:58 Temp 37.3 36.3 Pulse 87 83 Resp 18 17 B/P (MAP) 137/75 (95) 159/72 (101) Pulse Ox 94 95 O2 Delivery Room Air Room Air Room Air 07/06/20 00:00 Intake Total 1300 ml Output Total 1300 ml Balance 0 ml Weight (Pounds): 129 Weight (Ounces): 8.0 Weight (Calculated Kilograms): 58.828693 Constitutional: AAO x 3; No apparent distress; well-developed, well-nourished Respiratory: No accessory muscle use, No respiratory distress; chest expansion is symmetric, chest is bilaterally symmetric, lungs clear to auscultation Cardiovascular: regular rate-rhythm; No JVD; S1 and S2 Gastrointestional: soft, round, audible bowel sounds Extremities: other (mild L LE swelling (post op side)) Neurologic/Psychiatric: grossly intact (moves extremities) Skin: No rash on exposed areas, No ulcerations on exposed areas Results/Procedures: Labs Laboratory Tests 07/06/20 13:55: White Blood Count 10.3, Red Blood Count 2.84L, Hemoglobin 9.4L, Hematocrit 28L, Mean Corpuscular Volume 99, Mean Corpuscular Hemoglobin 33, Mean Corpuscular Hemoglobin Concent 34, Red Cell Distribution Width 13.2, Platelet Count 222, Mean Platelet Volume 9.6, Sodium Level 130L, Potassium Level 4.4, Chloride Level 95L, Carbon Dioxide Level 27, Anion Gap 8, Blood Urea Nitrogen 12, Creatinine 0.60, Estimat Glomerular Filtration Rate > 60, BUN/Creatinine Ratio 20, Glucose Level 128H, Calcium Level 8.3L Microbiology 07/02/20 MRSA Screen - Final, Complete Laboratory Tests 07/05/20 09:03 07/06/20 13:55 A/P: Assessment: Labile hypertension and episodes of orthostatic hypotension (demonstrated during this hospitalization). Diltiazem d/c'd during this hospitalization Syncopal episode of undetermined etiology Jul 02, 2020, likely due to postural hypotension. No significant arrhythmia seen on ILR on 07/02/20 S/P L hip fracture repair per Dr. Woodward on Jul 02, 2020 following a syncopal fall S/p ILR on 03/24/20 (after syncope in March 2020) that has shown PAF w RVR w/o significant bradycardia so far Paroxysmal atrial flutter, first documented on tele strips on 02/11/18 Probable TIA on 02/11/18, resulting in transient R foot numbness/weakness leading to fall and fracture of the R 5th metatarsal, managed by her pcp Lena for stroke prophylaxis MPI of March 20, 2018 showed no evidence of ischemia or infarction. LVEF 80% Echocardiogram of February 12, 2018 showed LVEF 65-70%. Mild aortic regurg. Mod TR. PASP 35 mmHg. Trivial MR. Carotid u/s of 03/19/20 showed minimal bilat carotid plaque TSH normal (0.73) on lab work of 02/12/18 Plan: Because of demonstration of orthostatic hypotension, we have stopped long-acting dilt and are using dig for vent rate control during episodes of AF Continue OAC with Eliquis for stroke prophylaxis Monitor labs from time to time AKHIL RODRIGUES MD FACP FACC CCDS Jul 06, 2020 16:18
--- NOTE | 2020-07-06 17:22 | Progress Note ---
Standard Progress Note Progress Notes/Assess & Plan Date Seen by a Provider: Jul 06, 2020 Time Seen by a Provider: 17:21 Progress/Assessment & Plan no complaints reports minimal pain radiogrpahs--HW well well positioned without fracture LLE--no calf tenderness. Intact DF and PF of toes and ankle with intact sensation to light touch throughout s/p L hip bipolar mobilize IRU? Final Diagnosis no complaints Vital Signs Date Time Temp Pulse Resp B/P (MAP) Pulse Ox O2 Delivery O2 Flow Rate FiO2 07/06/20 15:58 36.3 83 17 159/72 (101) 95 Room Air 07/06/20 08:00 37.3 87 18 137/75 (95) 94 Room Air 07/06/20 08:00 Room Air 07/05/20 23:31 37.2 98 16 136/79 (98) 92 Room Air 07/05/20 20:36 Room Air I & O 07/06/20 07:00 Intake Total 1450 ml Output Total 1750 ml Balance -300 ml Laboratory Tests Test 07/06/20 13:55 Range/Units White Blood Count 10.3 4.3-11.0 10^3/uL Red Blood Count 2.84 L 4.35-5.85 10^6/uL Hemoglobin 9.4 L 11.5-16.0 G/DL Hematocrit 28 L 35-52 % Mean Corpuscular Volume 99 80-99 FL Mean Corpuscular Hemoglobin 33 25-34 PG Mean Corpuscular Hemoglobin Concent 34 32-36 G/DL Red Cell Distribution Width 13.2 10.0-14.5 % Platelet Count 222 130-400 10^3/uL Mean Platelet Volume 9.6 7.4-10.4 FL Sodium Level 130 L 135-145 MMOL/L Potassium Level 4.4 3.6-5.0 MMOL/L Chloride Level 95 L 98-107 MMOL/L Carbon Dioxide Level 27 21-32 MMOL/L Anion Gap 8 5-14 MMOL/L Blood Urea Nitrogen 12 7-18 MG/DL Creatinine 0.60 0.60-1.30 MG/DL Estimat Glomerular Filtration Rate > 60 BUN/Creatinine Ratio 20 Glucose Level 128 H 70-105 MG/DL Calcium Level 8.3 L 8.5-10.1 MG/DL LLE--dressing intact. No calf tenderness s/p L hip bipolar PT/OT await placement SILKE BRAGG MD Jul 06, 2020 17:22
[2020-07-06] MEDS: oxyCODONE/APAP 5/325MG (PERCOCET 5) TABLET PO PRN (17:38)
[2020-07-06] MEDS: BENZOCAINE 20% ORAL GEL (ORALJEL MAX ST) MM PRN ×2 (17:38→22:16)
[2020-07-06 18:12] LABS: BILIRUBIN,URINE NEGATIVE (NEGATIVE); CLARITY,URINE CLOUDY; COLOR,URINE YELLOW; GLUCOSE, URINE (UA) NEGATIVE (NEGATIVE); KETONES,URINE NEGATIVE (NEGATIVE); LEUKOCYTE ESTERASE ,URINE 3+ (NEGATIVE); NITRITE,URINE NEGATIVE (NEGATIVE); PH,URINE 7.5 (5-9); PROTEIN,URINE NEGATIVE (NEGATIVE)
[2020-07-06 18:23] LABS: RBC,URINE 0-2 /HPF
[2020-07-06 18:24] LABS: BACTERIA,URINE MODERATE /HPF; WBC,URINE >100 /HPF
[2020-07-06] MEDS: MELATONIN 3 MG TABLET PO PRN (22:15)
[2020-07-06] MEDS: ALPRAZolam 0.25 MG (XANAX) TAB PO SCH (22:15)
[2020-07-07 00:06] VITALS: BP 141/73
[2020-07-07 08:00] VITALS: BP 116/72
[2020-07-07] MEDS: DOCUSATE SODIUM 100 MG (COLACE) CAP PO SCH (08:20)
[2020-07-07] MEDS: SENNOSIDES 8.6 MG (SENOKOT) TAB PO SCH (08:20)
[2020-07-07] MEDS: APIXABAN 5 MG (ELIQUIS) TABLET PO SCH (08:20)
[2020-07-07] MEDS: PANTOPRAZOLE 20 MG TABLET (PROTONIX) PO SCH (08:20)
[2020-07-07] MEDS: DIGOXIN 0.125 MG (LANOXIN) TAB PO SCH (08:20)
[2020-07-07] MEDS: dilTIAZem120 MG (CARDIZEM CD) CAP PO SCH (08:20)
--- NOTE | 2020-07-07 09:50 | Physical Therapy Daily Note ---
PT Daily Note-Current Subjective Patient reluctantly agrees to PT. Pain Numeric Pain Scale: 8 Location: Left Location Body Site: Hip Pain Description: Acute Mental Status Patient Orientation: Normal For Age Transfers SCALE: Activities may be completed with or without assistive devices. 3-Ykhzdcpsub-fzqxrzv completes the activity by him/herself with no assistance from a helper. 5-Set-up or Clean-up Assistance-helper sets up or cleans up; patient completes activity. [place] assists only prior to or following the activity. 4-Supervision or Touching Assistance-helper provides verbal cues and/or touching/steadying and/or contact guard assistance as patient completes activity. Assistance may be provided throughout the activity or intermittently. 3-Partial/Moderate Assistance-helper does LESS THAN HALF the effort. [place] lifts, holds or supports trunk or limbs, but provides less than half the effort. 2-Substantial/Maximal Assistance-helper does MORE THAN HALF the effort. [place] lifts or holds trunk or limbs and provides more than half the effort. 0-Wvoztvnni-bjdlrv does ALL the effort. Patient does none of the effort to complete the activity. Or, the assistance of 2 or more helpers is required for the patient to complete the activity. If activity was not attempted, code reason: 7-Patient Refused. 9-Not Applicable-not attempted and the patient did not perform the activity before the current illness, exacerbation or injury. 10-Not Attempted due to Environmental Limitations-(lack of equipment, weather restraints, etc.). 88-Not Attempted due to Medical Conditions or Safety Concerns. Lying to Sitting/Side of Bed(Q: 2 Sit to Stand (QC): 3 Chair/Lye-eh-Fpatq Xfer(QC): 2 Patient was hypotensive with sit to stand and attempt to ambulate with FWW Weight Bearing Right Lower Extremity: Right Weight Bearing/Tolerated Left Lower Extremity: Left Weight Bearing/Tolerated Gait Training Does the Patient Walk?: Yes Distance: 5 steps Gait Assistive Device: FWW unable to ambulate distance due to hypotensive episode. Exercises Supine Ex: Ankle pumps, Quad Set, Heel Slides Supine Reps: 12 (AROM x 2 sets) Seated Therapy Exercises: Ankle pumps, Long arc quads Seated Reps: 12 (x 2 sets) Treatments BP in sit 138/63; RN present to perform manual BP in stand 100/50. Assessment Patient required assistance to sit in recliner secondary to hypotensive episode in stand and with attempt to ambulate. Physician notified. PT Prison Goals Prison Goals PT Prison Goals Time Frame: Jul 25, 2020 Roll Left & Right (QC): 6 Sit to Lying (QC): 6 Lying-Sitting on Side/Bed(QC): 6 Sit to Stand (QC): 6 Chair/Fmc-jy-Srbxt Xfer(QC): 6 Toilet Transfer (QC): 6 Car Transfer (QC): 6 Does the Patient Walk: Yes Walk 10 feet (QC): 6 Walk 50ft with 2 Turns (QC): 6 Walk 150 ft (QC): 6 Walking 10ft on Uneven Surface: 6 1 Step (curb) (QC): 6 4 Steps (QC): 6 PT Plan Treatment/Plan Treatment Plan: Continue Plan of Care Treatment Plan: Bed Mobility, Education, Functional Activity Syl, Functional Strength, Gait, Safety, Therapeutic Exercise, Transfers Treatment Duration: Jul 25, 2020 Frequency: 11 times per week Estimated Hrs Per Day: .5 hour per day Patient and/or Family Agrees t: Yes Time/GCodes Time In: 915 Time Out: 938 Total Billed Treatment Time: 23 Total Billed Treatment 1 visit EX 14 min FA 9 min ANAHI JOHNSON PT Jul 07, 2020 09:49
[2020-07-07] MEDS ORDERED: FLUDROCORTISONE 0.1 MG (FLORINEF) TAB PO SCH (10:15)
[2020-07-07] MEDS ORDERED: cefTRIAXone FOR IV USE 1,000 MG in WATER (STERILE) FOR INJECTION 10 ML IV SCH (10:30)
--- NOTE | 2020-07-07 10:32 | Progress Note - Cardiology ---
Cardiology SOAP Progress Note Subjective: Reports near syncopal episodes yesterday. Reports everytime she stands up she feels dizzy. No c/o CP or palpitations. Objective: I&O/Vital Signs 07/07/20 07/07/20 07/07/20 00:06 08:00 08:00 Temp 37.7 37.5 Pulse 94 86 Resp 17 22 B/P (MAP) 141/73 (95) 116/72 (87) Pulse Ox 95 96 O2 Delivery Room Air Room Air Room Air 07/07/20 00:00 Intake Total 1150 ml Output Total 1700 ml Balance -550 ml Weight (Pounds): 129 Weight (Ounces): 8.0 Weight (Calculated Kilograms): 58.709923 Constitutional: AAO x 3; No apparent distress; well-developed, well-nourished Respiratory: No accessory muscle use, No respiratory distress; chest expansion is symmetric, chest is bilaterally symmetric, lungs clear to auscultation Cardiovascular: regular rate-rhythm; No JVD; S1 and S2 Gastrointestional: soft, round, audible bowel sounds Extremities: other (mild L LE swelling (post op side)) Neurologic/Psychiatric: grossly intact (moves extremities) Skin: No rash on exposed areas, No ulcerations on exposed areas Results/Procedures: Labs Laboratory Tests 07/06/20 13:55: White Blood Count 10.3, Red Blood Count 2.84L, Hemoglobin 9.4L, Hematocrit 28L, Mean Corpuscular Volume 99, Mean Corpuscular Hemoglobin 33, Mean Corpuscular Hemoglobin Concent 34, Red Cell Distribution Width 13.2, Platelet Count 222, Mean Platelet Volume 9.6, Sodium Level 130L, Potassium Level 4.4, Chloride Level 95L, Carbon Dioxide Level 27, Anion Gap 8, Blood Urea Nitrogen 12, Creatinine 0.60, Estimat Glomerular Filtration Rate > 60, BUN/Creatinine Ratio 20, Glucose Level 128H, Calcium Level 8.3L 07/06/20 18:00: Urine Color YELLOW, Urine Clarity CLOUDY, Urine pH 7.5, Urine Specific [place] 1.010L, Urine Protein NEGATIVE, Urine Glucose (UA) NEGATIVE, Urine Ketones NEGATIVE, Urine Nitrite NEGATIVE, Urine Bilirubin NEGATIVE, Urine Urobilinogen 0.2, Urine Leukocyte Esterase 3+H, Urine RBC (Auto) TRACE-I, Urine RBC 0-2, Urine WBC >100H, Urine Crystals NONE, Urine Bacteria MODERATEH, Urine Casts NONE, Urine Mucus NEGATIVE, Urine Culture Indicated YES Microbiology 07/02/20 MRSA Screen - Final, Complete Laboratory Tests 07/06/20 13:55 A/P: Assessment: Labile hypertension and episodes of orthostatic hypotension (demonstrated during this hospitalization). Diltiazem d/c'd during this hospitalization Syncopal episode of undetermined etiology Jul 02, 2020, likely due to postural hypotension. No significant arrhythmia seen on ILR on 07/02/20 S/P L hip fracture repair per Dr. Woodward on Jul 02, 2020 following a syncopal fall S/p ILR on 03/24/20 (after syncope in March 2020) that has shown PAF w RVR w/o significant bradycardia so far Paroxysmal atrial flutter, first documented on tele strips on 02/11/18 Probable TIA on 02/11/18, resulting in transient R foot numbness/weakness leading to fall and fracture of the R 5th metatarsal, managed by her pcp Lena for stroke prophylaxis MPI of March 20, 2018 showed no evidence of ischemia or infarction. LVEF 80% Echocardiogram of February 12, 2018 showed LVEF 65-70%. Mild aortic regurg. Mod TR. PASP 35 mmHg. Trivial MR. Carotid u/s of 03/19/20 showed minimal bilat carotid plaque TSH normal (0.73) on lab work of 02/12/18 Plan: Because of demonstration of orthostatic hypotension, we have stopped long-acting dilt and are using dig for vent rate control during episodes of AF Continue OAC with Eliquis for stroke prophylaxis Monitor labs from time to time MECCA FRANCIS Jul 07, 2020 10:32
--- NOTE | 2020-07-07 10:38 | Progress Note - Hospitalist ---
Subjective HPI/CC On Admission Date Seen by Provider: Jul 07, 2020 Time Seen by Provider: 10:35 Murali Arroyo is an 89-year-old female with past history of hypertension, atrial fibrillation, GERD, seasonal allergies, anxiety, who presented after a fall and was admitted with a hip fracture. She reports that she is feeling lightheaded and dizzy and tried to make it to her recliner but felt well before she got there. She reports another recent fall whenever she had not been using her walker. She denies any fevers or chills. She denies any chest pain or shortness of breath. She denies any cough. She denies any abdominal pain, nausea, vomiting. Subjective/Events-last exam Pt reports doing well today. Was able to get up and ambulate around her bed today. Pain is improving. Objective Exam Vital Signs Vital Signs Date Time Temp Pulse Resp B/P (MAP) Pulse Ox O2 Delivery O2 Flow Rate FiO2 07/07/20 08:00 Room Air 07/07/20 08:00 37.5 86 22 116/72 (87) 96 07/03/20 08:07 2.00 Capillary Refill : Less Than 3 SecondsLess Than 3 Seconds General Appearance: No Apparent Distress, WD/WN Respiratory: Lungs Clear, No Respiratory Distress Cardiovascular: Regular Rate, Rhythm, No Murmur Extremity: No Calf Tenderness, No Pedal Edema Neurologic/Psychiatric: Alert, Oriented x3 Results/Procedures Lab Laboratory Tests 07/06/20 13:55 Patient resulted labs reviewed. Imaging: Reviewed Imaging Report Assessment/Plan Assessment and Plan Assess & Plan/Chief Complaint Left hip fracture Ground-level fall Ortho primary underwent surgery 07/02 Pain regimen ordered, pain well controlled Incentive spirometry Bowel regimen PT/OT Declined IRF, will need to evaluate for SNF - Fur Buyer aware - I will attempt peer to peer today atrial fibrillation Orthostatic hypotension Cardizem dc-ed due to hypotension - Continue digoxin - Add florinef for orthostasis GERD Anxiety continue home meds DVT ppx: Already on Eliquis for a-fib Diagnosis/Problems Diagnosis/Problems (1) Orthostatic hypotension (2) Closed left hip fracture Status: Acute Qualifiers: Encounter type: initial encounter Qualified Codes: S72.002A - Fracture of unspecified part of neck of left femur, initial encounter for closed fracture (3) Paroxysmal atrial fibrillation Status: Acute Clinical Quality Measures DVT/VTE Risk/Contraindication: Risk Factor Score Per Nursin RFS Level Per Nursing on Admit: 4+=Very High MARIA M SHAFFER MD Jul 07, 2020 10:38
--- NOTE | 2020-07-07 11:31 | NUR ---
IRF [id number] completed by Dr. Rutledge, denial overturned; therefore, patient to admit to ARU, today.
[2020-07-07] MEDS: oxyCODONE/APAP 5/325MG (PERCOCET 5) TABLET PO PRN (13:41)
--- NOTE | 2020-07-07 14:13 | NUR ---
report given to Gisselle WEIR, ARU RN stated that patient's room isn't clean at the moment but she would notify this RN when the room is available
== END 2020-07-07 14:50 | DRG 470 ==
LOC: EDUNIT# 08:58 → ER 09:01 → 4TH 11:48 → UNDODISIN 07-04 14:10
PROVIDERS: ADMIT Orthopaedic Surgery; ATTEND Orthopaedic Surgery
PROC: 0SRS0JA Replacement of Left Hip Joint, Femoral Surface with Synthetic Substitute, Uncemented, Open Approach (ICD-10-PCS; principal; 2020-07-02 17:32)
DX: S72.002A Fracture of unspecified part of neck of left femur, initial encounter for closed fracture (principal); I48.0 Paroxysmal atrial fibrillation; I10 Essential (primary) hypertension; R73.03 Prediabetes; M19.91 Primary osteoarthritis, unspecified site; F41.9 Anxiety disorder, unspecified; I95.1 Orthostatic hypotension; M54.2 Cervicalgia; N20.0 Calculus of kidney; W18.39XA Other fall on same level, initial encounter; Y92.009 Unspecified place in unspecified non-institutional (private) residence as the place of occurrence of the external cause; Z87.442 Personal history of urinary calculi; Z79.01 Long term (current) use of anticoagulants; Z86.73 Personal history of transient ischemic attack (TIA), and cerebral infarction without residual deficits
CPT/HCPCS: 36415; 70450; 71045; 72125; 73501; 80048; 80053; 81000; 85014; 85018; 85025; 85027; 87077; 87081; 87088; 87186; 87635; 93005; 93041; 93306; 96361; 96374; 96375; 96376

== ENCOUNTER 2020-07-04 14:20 | Inpatient (IN) | payer MEDICARE ==
[~2020-07-04] VITALS: Ht 165.1 cm; Wt 64.0 kg
[~2020-07-04 14:20] MED LIST changes: +ASCO500T71 PO; +CRAN450T9 PO; +DILT120C53 PO; +FLUC200T5 PO; +LORA10TA7 PO; +MUPI22OI2 TOP; +NITR100C PO
--- NOTE | 2020-07-04 14:20 | NUR ---
LASHONDA MARY admitted to room 227-1, with an admitting diagnosis of LEFT HIP FRACTURE, on 07/04/20 from via STRETCHER, accompanied by STAFF.MARY GALLEGO introduced to surroundings, call light, bed controls, phone, TV, temperature control, lights, meal times, smoking policy, visitor policy, side rail policy, bathrooms and showers. Patient Rights given to patient in the handbook.MARY GALLEGO verbalizes understanding that [facility] is not responsible for the loss or damage to any personal effects or valuables that are kept in the patients posession during their hospitalization. The following Patient Care Plans were discussed with the PATIENT: Discharge Planning, IMPARIED MOBILITY,ALTERED COMFORT, and SELF CARE DEFICIT. MARY GALLEGO verbalizes understanding of Interdisciplinary Patient Education. Patient and/or family were informed about the Rapid Response Team and its purpose. Patient received Patient Rights Booklet, which includes Privacy Act Statement and Data Collection Information Summary. Addendum: 07/04/20 at 1614 by DUNCAN RUDD RN ERROR, PATIENT NOT ADMITTED AT THIS TIME, PATIENT IS PENDING INSURANCE APPROVAL.
[2020-07-04 14:25] VITALS: BP 136/65
[2020-07-07] MEDS ORDERED: ALPRAZolam 0.25 MG (XANAX) TAB PO PRN (11:45)
[2020-07-07] MEDS ORDERED: LACTULOSE SYRUP 10GM/15ML (ENULOSE) 30ML UDC PO PRN (11:45)
[2020-07-07] MEDS ORDERED: MELATONIN 3 MG TABLET PO PRN ×2 (11:45→18:30)
[2020-07-07] MEDS ORDERED: FLEET ENEMA ADULT 1 EA BTL PR PRN (11:45)
[2020-07-07] MEDS ORDERED: LOPERAMIDE 2 MG (IMODIUM) TABLET PO PRN (11:45)
[2020-07-07] MEDS ORDERED: guaiFENesin/CODEINE (ROBITUSSIN AC) 10ML UDC PO PRN (11:45)
[2020-07-07] MEDS ORDERED: ONDANSETRON 4 MG (ZOFRAN) ORAL DISSOLVE TAB PO PRN ×2 (11:45→18:30)
[2020-07-07] MEDS ORDERED: diphenhydrAMINE 25 MG TAB (BENADRYL) PO PRN (11:45)
[2020-07-07] MEDS ORDERED: DOCUSATE SODIUM 100 MG (COLACE) CAP PO PRN (11:45)
[2020-07-07] MEDS ORDERED: CALCIUM CARBONATE 500 MG (TUMS) TAB.CHEW PO PRN (11:45)
[2020-07-07] MEDS ORDERED: BISACODYL 10 MG SUPP (DULCOLAX) PR PRN ×2 (11:45→18:30)
[2020-07-07] MEDS ORDERED: ENOXAPARIN 40 MG/0.4 ML (LOVENOX) SYR SC SCH (11:45)
--- NOTE | 2020-07-07 15:21 | Physical Therapy Evaluation ---
PT Evaluation-General Medical Diagnosis Admission Date July 07, 2020 Medical Diagnosis: left hip fracture Onset Date: Jul 02, 2020 Therapy Diagnosis Therapy Diagnosis: generalized weakness/debility Height/Weight Height (Feet): 5 Height (Inches): 5.00 Weight (Pounds): 129 Weight (Ounces): 8.0 Precautions Precautions/Isolations: Fall Prevention, Standard Precautions Weight Bear Status Right Lower Extremity: Right Full Weight Bearing Left Lower Extremity: Left Weight Bearing/Tolerated Referral Physician: Tad Reason for Referral: Evaluation/Treatment Medical History Pertinent Medical History: Atrial Fib, Arthritis Current History s/p fall at home secondary to dizziness/left hip fracture with repair (hip precautions) Reviewed History: Yes Social History Home: Single Level Current Living Status: Alone Entry Into Home: Ramp sujlzf-zs-drj suite Prior Prior Level of Function SCALE: Activities may be completed with or without assistive devices. 9-Psygsrogks-blzvaph completes the activity by him/herself with no assistance from a helper. 5-Set-up or Clean-up Assistance-helper sets up or cleans up; patient completes activity. [place] assists only prior to or following the activity. 4-Supervision or Touching Assistance-helper provides verbal cues and/or touching/steadying and/or contact guard assistance as patient completes activity. Assistance may be provided throughout the activity or intermittently. 3-Partial/Moderate Assistance-helper does LESS THAN HALF the effort. [place] lifts, holds or supports trunk or limbs, but provides less than half the effort. 2-Substantial/Maximal Assistance-helper does MORE THAN HALF the effort. [place] lifts or holds trunk or limbs and provides more than half the effort. 4-Iiukagmzv-lktvja does ALL the effort. Patient does none of the effort to complete the activity. Or, the assistance of 2 or more helpers is required for the patient to complete the activity. If activity was not attempted, code reason: 7-Patient Refused. 9-Not Applicable-not attempted and the patient did not perform the activity before the current illness, exacerbation or injury. 10-Not Attempted due to Environmental Limitations-(lack of equipment, weather restraints, etc.). 88-Not Attempted due to Medical Conditions or Safety Concerns. Bed Mobility: 6 Transfers (B,C,W/C): 6 Gait: 6 Stairs: 9 Wheelchair Mobility: 9 Indoor Mobility (Ambulation): Independent Stairs: Not [place] Prior Devices Use: Walker per patient report she does not go anywhere with steps PT Evaluation-Current Subjective Patient agrees to PT with co treat with OT due to BP issues. Pain Numeric Pain Scale: 5-Moderate Pain Location: Left Location Body Site: Hip Pain Description: Acute Objective Patient Orientation: Normal For Age ROM/Strength ROM Lower Extremities left hip precautions/right LE WFL Strength Lower Extremities right knee flexion/extension 3/5; hip flexion 3-/5; DF/PF 3/5 left knee flexion/extension 3-/5; hip flexion NT; DF/PF 3/5 Integumentary/Posture Integumentary left hip incision Bladder Incontinence: Yes Posture kyphotic Neuromuscular (Tone, Coordination, Reflexes) noted "twitching" total body occasionally/coordination WFL Sensory Vision: Functional Hearing: Functional Sensation Right Lower Extremit: Intact Sensation Left Lower Extremity: Intact Transfers Roll Left to Right (QC): 2 Sit to Lying (QC): 1 Lying to Sitting/Side of Bed(Q: 2 Sit to Stand (QC): 2 Chair/Gnh-vk-Wertb Xfer(QC): 2 Toilet Transfer (QC): 88 Car Transfer (QC): 88 (patient having episode of orthostatic hypotension (not safe to perform on this date)) Gait Does the Patient Walk?: No and Walking Goal IS indicated Mode of Locomotion: Walk Anticipated Mode of Locomotion: Walk Walk 10 feet (QC): 88 Walk 50 ft with 2 Turns(QC): 88 Walk 150 ft (QC): 88 Walking 10ft/uneven surface-QC: 88 Distance: 3 steps x 2 Gait Assistive Device: FWW Comments/Gait Description side stepping then having episode of orthostatic hypotension 104/57 with patient c/o possible syncope if not able to sit Wheelchair Training Wheel 50 ft with 2 turns (QC): 88 Wheel 150 ft (QC): 88 Stairs 1 Step (curb) (QC): 88 4 Steps (QC): 9 12 Steps (QC): 9 per patient report,patient does not perform steps in home or community Balance Sitting Static: Fair Sitting Dynamic: Fair Standing Static: Fair Standing Dynamic: Poor Picking up an Object (QC): 88 Treatment OT/PT cotreat due to increased medical complexity, hypotension, hip pain, decreased functional mobility, and to decrease fall risk. OT focused on ADLs, cues for sequencing and safety, and UE placement, while PT focused on functional transfers, LE placement, and overall gross movements. Orthostatic BP supine 118/59; sit 119/66; stand 116/67; after 1 minute in stand and taking 3 steps 104/57 and c/o increase dizziness Assessment/Needs 89 y.o. female, will benefit from skilled PT to address functional strength and mobility to improve current LOF to safely return to home at maximum LOF. Patient is currently limited by orthostatic hypotension and is being addressed by physician and medical team. Rehab Potential: Fair PT Short Term Goals Short Term Goals Time Frame: Jul 25, 2020 Roll Left & Right: 3 Sit to lyin Lying to sitting on side of be: 3 Sit to stand: 3 Chair/eeu-vj-wsgnb transfer: 3 Toilet transfer: 3 Car transfer: 3 Walk 10 feet: 3 Walk 50 feet with two turns: 3 Walk 150 feet: 3 Walking 10ft on uneven surface: 3 PT Supervisor [employer] Goals Prison Goals PT Supervisor [employer] Goals Time Frame: Aug 08, 2020 Roll Left & Right (QC): 5 Sit to Lying (QC): 5 Lying-Sitting on Side/Bed(QC): 5 Sit to Stand (QC): 5 Chair/Lfn-iw-Bjbtv Xfer(QC): 5 Toilet Transfer (QC): 5 Car Transfer (QC): 5 Does the Patient Walk: Yes Walk 10 feet (QC): 5 Walk 50ft with 2 Turns (QC): 5 Walk 150 ft (QC): 5 Walking 10ft on Uneven Surface: 5 1 Step (curb) (QC): 4 4 Steps (QC): 9 12 Steps (QC): 9 Picking up an Object (QC): 5 Wheel 50 feet with 2 turns (QC: 5 (if deemed necessary by therapy team) Type: Manual Wheel 150 feet: 5 Type: Manual PT Plan Problem List Problem List: Activity Tolerance, Functional Strength, Safety, Balance, Gait, Transfer, Bed Mobility, Other Treatment/Plan Treatment Plan: Continue Plan of Care Treatment Plan: Bed Mobility, Concurrent Therapy, Education, Functional Activity Syl, Functional Strength, Group Therapy, Gait, Safety, Therapeutic Exercise, Transfers Treatment Duration: Aug 08, 2020 Frequency: Modified Program (IRF) (intensity waiver) Estimated Hrs Per Day: 1 hour per day (increase as tolerated) Patient and/or Family Agrees t: Yes Safety Risks/Education Patient Education: Gait Training, Reviewed Precautions, Safety Issues Teaching Recipient: Patient Teaching Methods: Demonstration, Discussion Response to Teaching: Reinforcement Needed Time/GCodes Time In: 1410 Time Out: 1520 Total Billed Treatment Time: 60 Total Billed Treatment 1 visit EVModC 10 min (7624-3119 PT) (4319-5131 OT) FA x 3 50 min (cotreat with OT) ANAHI JOHNSON PT Jul 07, 2020 15:21
--- NOTE | 2020-07-07 15:27 | Occupational Therapy Eval ---
OT Evaluation-General/PLF Medical Diagnosis Admission Date Jul 07, 2020 at 15:05 Medical Diagnosis: L hip fx Onset Date: Jul 02, 2020 Therapy Diagnosis Therapy Diagnosis: impaired ADLS/functional mobility Height/Weight Height (Feet): 5 Height (Inches): 5.00 Weight (Pounds): 129 Weight (Ounces): 8.0 Precautions Precautions/Isolations: Fall Prevention, Standard Precautions Weight Bear Status Weight Bearing Restriction: Weight Bearing/Tolerated Location Restriction: LE Bilateral Referral Physician: Tad Referral Reason: Evaluation/Treatment Medical History Pertinent Medical History: Atrial Fib, Arthritis Current History Pt fell after syncope episode, L hip fx with ERNESTO. Social History Home: Single Level Current Living Status: Alone Entry Into Home: Ramp ADL-Prior Level of Function SCALE: Activities may be completed with or without assistive devices. 6-Xipracoiom-mvxcqmn completes the activity by him/herself with no assistance from a helper. 5-Set-up or Clean-up Assistance-helper sets up or cleans up; patient completes activity. [place] assists only prior to or following the activity. 4-Supervision or Touching Assistance-helper provides verbal cues and/or touching/steadying and/or contact guard assistance as patient completes activity. Assistance may be provided throughout the activity or intermittently. 3-Partial/Moderate Assistance-helper does LESS THAN HALF the effort. [place] lifts, holds or supports trunk or limbs, but provides less than half the effort. 2-Substantial/Maximal Assistance-helper does MORE THAN HALF the effort. [place] lifts or holds trunk or limbs and provides more than half the effort. 8-Eyocldbkr-pnsyrm does ALL the effort. Patient does none of the effort to complete the activity. Or, the assistance of 2 or more helpers is required for the patient to complete the activity. If activity was not attempted, code reason: 7-Patient Refused. 9-Not Applicable-not attempted and the patient did not perform the activity before the current illness, exacerbation or injury. 10-Not Attempted due to Environmental Limitations-(lack of equipment, weather restraints, etc.). 88-Not Attempted due to Medical Conditions or Safety Concerns. ADL PLOF Comments Pt reports living in a mother in law house with her son's house connected. She is independent with functional mobility with a walker, receives assistance with ADLs/IADLs from family. She has assistance and company from her daughter every day, her family provides meals and one of her daughters cleans the house. Pt reports being able to complete bathing/dressing/toileting by herself. Self Care: Needed Some Help Functional Cognition: Independent DME/Equipment: Bath Chair, Shower DME/Equipment Comments walker, ramp OT Current Status Subjective Pt agreeable to OT evaluation and tx on this date. Pt reports pain 5-6/10 in her L hip. Mental Status/Objective Patient Orientation: Person, Place, Time, Situation Current Glasses/Contacts: Yes Hearing Aids: No Dentures/Partials: Yes Hand Dominance: Right Upper Extremity ROM WFL Upper Extremity Coordination WFL Upper Extremity Sensation Pt reports some tingling/numbness in her fingers BUEs, Upper Extremity Strength grossly 3+/5 ADL-Treatment Eating (QC): 6 (Pt able to open crackers and eat without difficulty. Pt brought cup to her mouth and took a drink of water.) Oral Hygiene (QC): 3 (Pt required assistance rinsing dentures, pt able to place in her mouth and place back in the container but does not want to use fixodent to keep them in.) Shower/Bathe Self (QC): 7 Upper Body Dressing (QC): 7 Lower Body Dressing (QC): 7 On/Off Footwear (QC): 7 Toileting Hygiene (QC): 7 Other Treatments OT/PT cotreat due to increased medical complexity, hypotension, hip pain, decreased functional mobility, and to decrease fall risk. OT focused on ADLs, cues for sequencing and safety, and UE placement, while PT focused on functional transfers, LE placement, and overall gross movements. Pt sat EOB, then standing trial, and she took a few steps as OT/PT monitored BP. OT educated pt on purpose and benefits of OT, she verbalized understanding. Pt then provided information about PLOF and home set up, and participated in UE screen.Pt's blood pressure lowered with walking/side stepping with BP 104/57, pt assisted back to bed. Assist x2 to scoot towards HOB. Pt then demo'd ability to place/remove dentures from her mouth and to open crackers and eat. After rest break, pt completed another standing trial, with cues to look up and out of her room. BP monitored throughout tx. Pt then assisted back to bed. Post OT/PT cotreat, pt laying in bed, call light in reach and all needs met. Education OT Patient Education: Correct positioning, Energy conservation, Modified ADL techniques, Progress toward Goal/Update tx plan, Purpose of tx/functional activities, Safety issues, Transfer techniques Teaching Recipient: Patient Teaching Methods: Discussion Response to Teaching: Verbalize Understanding, Reinforcement Needed OT Short Term Goals Short Term Goals Time Frame: Jul 21, 2020 Oral hygiene: 5 Toileting hygiene: 3 Shower/bathe self: 3 Upper body dressin Lower body dressin Putting on/taking off footwear: 3 OT Merchandise Buyer Goals [facility] Goals Time Frame: Aug 04, 2020 Eating (QC): 6 Oral Hygiene (QC): 6 Toileting Hygiene (QC): 6 Shower/Bathe Self (QC): 6 Upper Body Dressing (QC): 6 Lower Body Dressing (QC): 6 On/Off Footwear (QC): 6 Additional Goals: 1-Demonstrate ADL Tasks, 2-Verbalize Understanding, 3- ImproveStrength/Syl 1=Demonstrate adherence to instructed precautions during ADL tasks. 2=Patient will verbalize/demonstrate understanding of assistive devices/modifications for ADL. 3=Patient will improve strength/tolerance for activity to enable patient to perform ADL's. OT Education/Plan Problem List/Assessment Assessment: Decreased Activ Tolerance, Decreased UE Strength, Impaired Bed Mobility, Impaired Funct Balance, Impaired I ADL's, Impaired Self-Care Skills Discharge Recommendations Plan/Recommendations: Continue POC Treatment Plan/Plan of Care Patient would benefit from OT for education, treatment and training to promote independence in ADL's, mobility, safety and/or upper extremity function for ADL's. Plan of Care: ADL Retraining, Functional Mobility, Group Exercise/Act as Ind, UE Funct Exercise/Act Treatment Duration: Aug 04, 2020 Frequency: Modified Program (IRF) (27/05) Estimated Hrs Per Day: 1.5 hours per day Rehab Potential: Fair Time/GCodes Start Time: 14:20 Stop Time: 15:20 Total Time Billed (hr/min): 60 Billed Treatment Time 7977-3731 OT eval (10') 7918-8832 OT/PT cotreat (50') 1, EVM (10'), FA 3 (50') FRITZ MUIR OT Jul 07, 2020 15:27
[2020-07-07 15:28] VITALS: BP 135/68
[2020-07-07 15:29] VITALS: BP 135/68
[2020-07-07] MEDS ORDERED: ONDANSETRON 4 MG/2 ML (SDV) Z0FRAN IVP PRN (18:30)
[2020-07-07] MEDS ORDERED: ANTACID SUSP 30 ML UDC (MYLANTA) PO PRN (18:30)
[2020-07-07] MEDS ORDERED: polyethylene glycoL POWDER 17 GM (MIRALAX) PACK PO PRN (18:30)
[2020-07-07] MEDS ORDERED: fentaNYL INJECTION 100 MCG/2 ML AMP IVP PRN (18:30)
[2020-07-07] MEDS ORDERED: BENZOCAINE 20% ORAL GEL (ORALJEL MAX ST) MM PRN (18:30)
[2020-07-07] MEDS: APIXABAN 5 MG (ELIQUIS) TABLET PO SCH (20:41)
[2020-07-07] MEDS: ALPRAZolam 0.25 MG (XANAX) TAB PO SCH (20:41)
[2020-07-07] MEDS: SENNOSIDES 8.6 MG (SENOKOT) TAB PO SCH (20:45)
[2020-07-07] MEDS: polyethylene glycoL POWDER 17 GM (MIRALAX) PACK PO SCH (20:45)
[2020-07-07] MEDS: DOCUSATE SODIUM 100 MG (COLACE) CAP PO SCH (20:45)
--- NOTE | 2020-07-07 20:45 | PM&R Post Admission Assessment ---
PM&R HP Date of Visit: Jul 07, 2020 Time of Visit: 16:00 History of Present Illness CC: Left hip fracture HPI: This is an 89yoWF clinic patient of Dr Morales who has a h/o AF managed by Dr Baron who presents to the IRF after suffering a left hip fracture s/p repair on 07/02/[address] Woodward. Currently she is now having regular BM's after laxatives given. Pain is well controlled. Patient lives at home and has children who are involved in her care. No CP or SOB currently. Orthostatic hypotension is a problem she has and Cardiology has adjusted some meds to help with that but it continues to be an issue that limits her participation. Checked meds and labs and reviewed entire hospital course. Past Bpkumdl-Erjryd-Kjhuak Hx Past Med/Social Hx: Reviewed Nursing Past Med/Soc Hx, Reviewed and Corrections made Patient Social History Marrital Status: single Employed/Student: retired Alcohol Use: Denies Use Recreational Drug Use: No Smoking Status: Never a Smoker Physical Abuse Screen: No Sexual Abuse: No Recent Foreign Travel: No Contact w/other who traveled: No Recent Hopitalizations: Yes (CYST/ABSCESS REMOVAL 08/2016) Recent Infectious Disease Expo: No Seasonal Allergies Seasonal Allergies: No Past Medical History Surgeries: Abdominal, Eye Surgery, Tonsillectomy Currently Using CPAP: No Currently Using BIPAP: No Cardiac: Atrial Fibrillation, Hypertension, Palpitations 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: No Menopausal Genitourinary: Kidney Stones Gastrointestinal: Abdominal Hernia Musculoskeletal: Arthritis HEENT: Cataract Psychosocial: Anxiety History of Blood Disorders: No Adverse Reaction to Blood Grimes: No Family History Diabetes mellitus 20 MOTHER No Pertinent Family Hx Prior Level of Function Bed Mobility: 6 Transfers: 6 Gait: 6 Stairs: 9 Wheelchair Mobility: 9 Indoor Mobility (Ambulation): Independent Stairs: Not Applicalbe Prior Devices Use: Walker Self Care: Needed Some Help Functional Cognition: Independent Occupation: retired. Current Level of Fuctioning Roll Left to Right: 2 Sit to Lyin Lying to Sitting/Side of Bed: 2 Sit to Stand: 2 Chair/Kud-uk-Vlvbo Xfer: 2 Car Transfer: 88 (patient having episode of orthostatic hypotension (not safe to perform on this date)) Does the Patient Walk: No and Walking Goal IS indicated Mode of Locomotion: Walk Anticipated Mode of Locomotion: Walk Walk 10 feet: 88 Walk 50 ft with 2 Turns: 88 Walk 150 ft: 88 Walking 10ft on uneven surface: 88 Gait Assistive Device: FWW Does the Pt Use a Wheelchair: No Wheel 50 ft with 2 turns: 88 Wheel 150 ft: 88 1 Step (curb): 88 4 Steps: 9 12 Steps: 9 Picking up an Object: 88 Eatin (Pt able to open crackers and eat without difficulty. Pt brought cup to her mouth and took a drink of water.) Oral Hygiene: 3 (Pt required assistance rinsing dentures, pt able to place in her mouth and place back in the container but does not want to use fixodent to keep them in.) Shower/Bathe Self: 7 Upper Body Dressin Lower Body Dressin On/Off Footwear: 7 Toileting Hygiene: 7 PM&R Allergy/Meds/Data Review Allergies Coded Allergies: amoxicillin (Verified Allergy, Unknown, pt has rec Rocephin and Ancef in the past, 07/02/20) clavulanic acid (Verified Allergy, Unknown, 07/02/20) morphine (Verified Adverse Reaction, Unknown, knocks her out, 03/16/20) Home Medications Scheduled Acetaminophen (Tylenol Extra Strength), 500 MG PO 0900,1300, (Reported) Acetaminophen (Tylenol Extra Strength), 1,000 MG PO HS, (Reported) Alprazolam (Alprazolam), 0.25 MG PO HS, (Reported) Apixaban (Eliquis), 2.5 MG PO BID, (Reported) Ascorbic Acid (Vitamin C), 500 MG PO 1900, (Reported) Cranberry Fruit (Cranberry), 450 MG PO BID, (Reported) Diltiazem HCl (Cartia Xt), 120 MG PO BID, (Reported) Elderberry Fruit and Flower (Black Elderberry 575 mg Cap), 2 EACH PO 1300, (Reported) Ferrous Sulfate (Iron), 325 MG PO 1300, (Reported) Fluconazole (Fluconazole), 200 MG PO SATU, (Reported) Loratadine (Loratadine), 10 MG PO DAILY, (Reported) Melatonin (Melatonin), 3 MG PO 1900, (Reported) Melatonin (Melatonin), 5 MG PO HS, (Reported) Nitrofurantoin Macrocrystal (Nitrofurantoin), 100 MG PO Q48H, (Reported) Omeprazole (Omeprazole), 20 MG PO DAILY, (Reported) Scheduled PRN Mupirocin (Mupirocin), 1 APPLIC TOP BID PRN for RASH, (Reported) Discontinued Medications Apixaban (Eliquis), 5 MG PO BID Discontinued Reason: Duplicate Order Calcium Polycarbophil (Fiber-Tabs), 2 TAB PO DAILY, (Reported) Discontinued Reason: No Longer Taking Cefdinir (Cefdinir), 300 MG PO BID Discontinued Reason: No Longer Taking Ciprofloxacin HCl (Ciprofloxacin HCl), 500 MG PO BID, (Reported) Discontinued Reason: No Longer Taking Hydrocortisone (Hydrocortisone), TOP BID PRN for ITCHING, (Reported) Discontinued Reason: No Longer Taking Metoprolol Succinate (Metoprolol Succinate), 12.5 MG PO BID, (Reported) Discontinued Reason: No Longer Taking Naproxen Sodium (Aleve), 220 MG PO DAILY, (Reported) Discontinued Reason: No Longer Taking Phenazopyridine HCl (Pyridium), 100 MG PO TID PRN for PAIN-BREAKTHROUGH Discontinued Reason: No Longer Taking Current Medications Current Medications Reviewed Review of Systems Constitutional: see HPI, dizziness, malaise, weakness EENTM: no symptoms reported Respiratory: no symptoms reported Cardiovascular: no symptoms reported Gastrointestinal: constipation Genitourinary: no symptoms reported Musculoskeletal: back pain, joint pain Skin: no symptoms reported Psychiatric/Neurological: Anxiety, Depressed All Other Systems Reviewed Negative Unless Noted: Yes Physical Exam Physical Exam Vital Signs Vital Signs - First Documented 07/04/20 14:25 Temp 37.2 Pulse 81 Resp 18 B/P (MAP) 136/65 Pulse Ox 94 O2 Delivery Room Air Capillary Refill : Height, Weight, BMI Height: 5'5.00" Weight: 129lbs. 8.0oz. [id number]; 23.91 BMI Method:Stated General Appearance: No Apparent Distress, WD/WN, Chronically ill, Thin Eyes: Bilateral Eye Normal Inspection, Bilateral Eye PERRL HEENT: PERRL/EOMI, Normal ENT Inspection, Pharynx Normal Neck: Full Range of Motion, Normal Inspection, Non Tender, Supple, Carotid Bruit Respiratory: Chest Non Tender, Lungs Clear, Normal Breath Sounds, No Accessory Muscle Use, No Respiratory Distress Cardiovascular: Regular Rate, Rhythm, No Edema, No Gallop, No JVD, No Murmur, Normal Peripheral Pulses, Irregularly Irregular Gastrointestinal: Normal Bowel Sounds, No Organomegaly, No Pulsatile Mass, Non Tender, Soft Back: Normal Inspection, No CVA Tenderness, No Vertebral Tenderness Extremity: Normal Capillary Refill, Normal Inspection, Normal Range of Motion, Non Tender, No Calf Tenderness, No Pedal Edema Neurologic/Psychiatric: Alert, Oriented x3, No Motor/Sensory Deficits, Normal 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, 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, Motor Weakness (left leg limited ROM due to pain) Skin: Normal Color, Warm/Dry Lymphatic: No Adenopathy PM&R Medical Assessment & Plan REHAB/MEDICAL ASSESSMENT AND PLAN: REHAB IMPAIRMENT GROUP: Left hip fracture ETIOLOGIC DIAGNOSIS: Left hip fracture The comorbidities that impact the patients function and/or functional outcome by: poor reserve, weight loss, fall risk REHAB PLAN: The patient is being admitted to our comprehensive inpatient rehabilitation facility and can tolerate the intensity of service consisting of at least: 180 minutes of therapy a day, 5 out of 7 days a week Rehab treatment will consist of: PT OT will focus on regaining function in order to resume independence in order to return home The patient/family has a good understanding of our discharge process and will benefit from an interdisciplinary inpatient rehabilitation program. The patient has potential to make improvement and is in need of at least two of the following multidisciplinary therapies including but not limited to physical, occupational, speech, and prosthetics and orthotics. Additionally the patient will need services from respiratory, nutritional services, wound care, psychology, etc. (Customize this to each patient). Given the patients complex condition and risk of further medical complications, rehabilitation services cannot be safely or effectively provided at a lower level of care such as a care home facility. BARRIERS TO DISCHARGE: Poor reserve ESTIMATED LOS: 7 days DISPOSITION: Home RELEVANT CHANGES SINCE PREADMISSION SCREENING: I have compared the patients medical and functional status at the time of the preadmission screening and there are: no changes PROGNOSIS: Fair REHABILITATION GOALS: 1. PT OT will focus on regaining function in order to resume independence in order to return home All the above goals were reviewed with the patient and he/she is in agreement. By signing this document, I acknowledge that I have personally performed a full physical examination on this patient within 24 hours of admission to this inpatient rehabilitation facility and have determined the patient to be able to tolerate the above course of treatment at an intensive level for a reasonable period of time. I will be completing a detailed individualized Plan of Care for this patient by day #4 of the patients stay based upon the Preadmission Screen, the Post-Admission Evaluation, and the therapy evaluations. Admission Dx/Comorbidities: (1) Closed left hip fracture Status: Acute ICD Codes: S72.002A - Fracture of unspecified part of neck of left femur, ini tia encounter for closed fracture (2) Fall Status: Acute ICD Codes: W19.XXXA - Unspecified fall, initial encounter (3) Syncope Status: Acute ICD Codes: R55 - Syncope and collapse (4) Orthostatic hypotension ICD Codes: I95.1 - Orthostatic hypotension (5) GERD (gastroesophageal reflux disease) Status: Chronic ICD Codes: K21.9 - Gastro-esophageal reflux disease without esophagitis (6) Anxiety Status: Chronic ICD Codes: F41.9 - Anxiety disorder, unspecified (7) Atrial fibrillation with controlled ventricular rate ICD Codes: I48.91 - Unspecified atrial fibrillation Assessment/Plan Assessment and Plan Assess & Plan/Chief Complaint Assessment per Cardiology assessment with my modifications: Labile hypertension and episodes of orthostatic hypotension (demonstrated during this hospitalization). Diltiazem d/c'd during this hospitalization Syncopal episode of undetermined etiology Jul 02, 2020, likely due to postural hypotension. No significant arrhythmia seen on ILR on 07/02/20 S/P L hip fracture repair per Dr. Woodward on Jul 02, 2020 following a syncopal fall S/P ILR on 03/24/20 (after syncope in March 2020) that has shown PAF w RVR w/o significant bradycardia so far Paroxysmal atrial flutter, first documented on tele strips on 02/11/18 Probable TIA on 02/11/18, resulting in transient R foot numbness/weakness leading to fall and fracture of the R 5th metatarsal, managed by her pcp Lena for stroke prophylaxis MPI of March 20, 2018 showed no evidence of ischemia or infarction. LVEF 80% Echocardiogram of February 12, 2018 showed LVEF 65-70%. Mild aortic regurg. Mod TR. PASP 35 mmHg. Trivial MR. Carotid u/s of 03/19/20 showed minimal bilat carotid plaque TSH normal (0.73) on lab work of 02/12/18 Plan: Because of demonstration of orthostatic hypotension, we have stopped long-acting dilt and are using dig for vent rate control during episodes of AF Continue OAC with Eliquis for stroke prophylaxis Monitor labs from time to time IRF protocol Pain control BM regimen JOVANI CAVAZOS DO Jul 07, 2020 20:45
[2020-07-07] MEDS ORDERED: SENNA W/DOCUSATE (SENOKOT S) TABLET PO SCH (21:00)
[2020-07-07] MEDS ORDERED: DOCUSATE SODIUM 100 MG (COLACE) CAP PO SCH (21:00)
[2020-07-08 05:04] LABS: BASOPHILS % (AUTO) 0 % (0-10); EOSINOPHILS # (AUTO) 0.2 10^3/uL (0.0-0.3); EOSINOPHILS % (AUTO) 2 % (0-10); HEMATOCRIT 27 % (35-52); HEMOGLOBIN 9.1 G/DL (11.5-16.0); LYMPHOCYTES # (AUTO) 1.3 X 10^3 (1.0-4.0); LYMPHOCYTES % (AUTO) 15 % (12-44); MEAN CORPUSCULAR HEMOGLOBIN 34 PG (25-34); MEAN CORPUSCULAR HGB CONC 34 G/DL (32-36); MEAN CORPUSCULAR VOLUME 99 FL (80-99); MEAN PLATELET VOLUME 9.5 FL (7.4-10.4); MONOCYTES % (AUTO) 12 % (0-12); NEUTROPHILS # (AUTO) 6.2 X 10^3 (1.8-7.8); NEUTROPHILS % (AUTO) 72 % (42-75); PLATELET COUNT 294 10^3/uL (130-400); WHITE BLOOD COUNT 8.6 10^3/uL (4.3-11.0)
[2020-07-08 05:23] LABS: ALANINE AMINOTRANSFERASE 12 U/L (0-55); ALBUMIN 3.2 GM/DL (3.2-4.5); ALKALINE PHOSPHATASE 51 U/L (40-136); BILIRUBIN,TOTAL 0.8 MG/DL (0.1-1.0); BUN/CREATININE RATIO 23; CALCIUM 8.2 MG/DL (8.5-10.1); CARBON DIOXIDE 26 MMOL/L (21-32); CHLORIDE 94 MMOL/L (98-107); CREATININE SERUM 0.66 MG/DL (0.60-1.30); GFR ESTIMATED > 60; GLUCOSE 111 MG/DL (70-105); POTASSIUM 4.3 MMOL/L (3.6-5.0); SODIUM 130 MMOL/L (135-145); TOTAL PROTEIN 5.7 GM/DL (6.4-8.2)
[2020-07-08 06:05] VITALS: BP 149/68
[2020-07-08 08:00] VITALS: BP 130/70
--- NOTE | 2020-07-08 08:54 | PM&R Progress Note ---
Subjective HPI/CC On Admission Date Seen by Provider: Jul 08, 2020 Time Seen by Provider: 09:00 Subjective/Events-last exam Pt doing pretty well Hgb 9.1 Sleepiness noted Sodium level 130 Bowels moved yesterday Incontinent after brown was discontinued Conferred with RN Checked meds and labs Review of Systems General: Fatigue, Malaise Neurological: Weakness Objective Exam Vital Signs Vital Signs Date Time Temp Pulse Resp B/P (MAP) Pulse Ox O2 Delivery O2 Flow Rate FiO2 07/08/20 17:20 37.2 89 16 132/64 (86) 96 Room Air Capillary Refill : Less Than 3 SecondsLess Than 3 Seconds General Appearance: No Apparent Distress, WD/WN, Chronically ill, Thin HEENT: PERRL/EOMI, Normal ENT Inspection, Pharynx Normal Neck: Full Range of Motion, Normal Inspection, Non Tender, Supple, Carotid Bruit Respiratory: Chest Non Tender, Lungs Clear, Normal Breath Sounds, No Accessory Muscle Use, No Respiratory Distress Cardiovascular: Regular Rate, Rhythm, No Edema, No Gallop, No JVD, No Murmur, Normal Peripheral Pulses, Irregularly Irregular Gastrointestinal: Normal Bowel Sounds, No Organomegaly, No Pulsatile Mass, Non Tender, Soft Back: Normal Inspection, No CVA Tenderness, No Vertebral Tenderness Extremity: Normal Capillary Refill, Normal Inspection, Normal Range of Motion, Non Tender, No Calf Tenderness, No Pedal Edema Neurologic/Psychiatric: Alert, Oriented x3, No Motor/Sensory Deficits, Normal 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 FIM Transfers Therapy Code Descriptions/Definitions Functional [place] Measure: 0=Not Assessed/NA 4=Minimal Assistance 1=Total Assistance 5=Supervision or Setup 2=Maximal Assistance 6=Modified [place] 3=Moderate Assistance 7=Complete IndependenceSCALE: Activities may be completed with or without assistive devices. 4-Tbccpfeeuj-qrwfleo completes the activity by him/herself with no assistance from a helper. 5-Set-up or Clean-up Assistance-helper sets up or cleans up; patient completes activity. Gem assists only prior to or following the activity. 4-Supervision or Touching Assistance-helper provides verbal cues and/or touching/steadying and/or contact guard assistance as patient completes activity. Assistance may be provided throughout the activity or intermittently. 3-Partial/Moderate Assistance-helper does LESS THAN HALF the effort. Gem lifts, holds or supports trunk or limbs, but provides less than half the effort. 2-Substantial/Maximal Assistance-helper does MORE THAN HALF the effort. Gem lifts or holds trunk or limbs and provides more than half the effort. 5-Ilxpyqkex-aknllb does ALL the effort. Patient does none of the effort to complete the activity. Or, the assistance of 2 or more helpers is required for the patient to complete the activity. If activity was not attempted, code reason: 7-Patient Refused. 9-Not Applicable-not attempted and the patient did not perform the activity before the current illness, exacerbation or injury. 10-Not Attempted due to Environmental Limitations-(lack of equipment, weather restraints, etc.). 88-Not Attempted due to Medical Conditions or Safety Concerns. Roll Left to Right (QC): 2 Sit to Lying (QC): 1 Sit to Stand (QC): 2 Chair/Pvj-ln-Aukmj Xfer(QC): 2 Car Transfer (QC): 88 (patient having episode of orthostatic hypotension (not safe to perform on this date)) Gait Training Does the Patient Walk?: No and Walking Goal IS indicated Walk 10 feet (QC): 88 Walk 50 ft with 2 Turns(QC): 88 Walk 150 ft (QC): 88 Walking 10ft/uneven surface-QC: 88 Gait Assistive Device: FWW Wheelchair Training Does the Pt Use a Wheelchair?: No Wheel 50 ft with 2 turns (QC): 88 Wheel 150 ft (QC): 88 Stair Training 1 Step (curb) (QC): 88 4 Steps (QC): 9 12 Steps (QC): 9 Balance Picking up an Object (QC): 88 ADL-Treatment Eating (QC): 6 (Pt able to open crackers and eat without difficulty. Pt brought cup to her mouth and took a drink of water.) Oral Hygiene (QC): 3 (Pt required assistance rinsing dentures, pt able to place in her mouth and place back in the container but does not want to use fixodent to keep them in.) Shower/Bathe Self (QC): 7 Upper Body Dressing (QC): 7 Lower Body Dressing (QC): 7 On/Off Footwear (QC): 7 Toileting Hygiene (QC): 7 Assessment/Plan Assessment and Plan Assess & Plan/Chief Complaint Assessment per Cardiology assessment with my modifications: Labile hypertension and episodes of orthostatic hypotension (demonstrated during this hospitalization). Diltiazem d/c'd during this hospitalization Syncopal episode of undetermined etiology Jul 02, 2020, likely due to postural hypotension. No significant arrhythmia seen on ILR on 07/02/20 S/P L hip fracture repair per Dr. Woodward on Jul 02, 2020 following a syncopal fall S/P ILR on 03/24/20 (after syncope in March 2020) that has shown PAF w RVR w/o significant bradycardia so far Paroxysmal atrial flutter, first documented on tele strips on 02/11/18 Probable TIA on 02/11/18, resulting in transient R foot numbness/weakness leading to fall and fracture of the R 5th metatarsal, managed by her pcp Lena for stroke prophylaxis MPI of March 20, 2018 showed no evidence of ischemia or infarction. LVEF 80% Echocardiogram of February 12, 2018 showed LVEF 65-70%. Mild aortic regurg. Mod TR. PASP 35 mmHg. Trivial MR. Carotid u/s of 03/19/20 showed minimal bilat carotid plaque TSH normal (0.73) on lab work of 02/12/18 Plan: Because of demonstration of orthostatic hypotension, we have stopped long-acting dilt and are using dig for vent rate control during episodes of AF Continue OAC with Eliquis for stroke prophylaxis Monitor labs from time to time IRF protocol Pain control BM regimen 07/08/20: Monitor incontinence Monitor sleepiness Monitor sodium level (1) Closed left hip fracture Status: Acute (2) Fall Status: Acute (3) Syncope Status: Acute (4) Orthostatic hypotension (5) GERD (gastroesophageal reflux disease) Status: Chronic (6) Anxiety Status: Chronic (7) Atrial fibrillation with controlled ventricular rate JOVANI CAVAZOS DO Jul 08, 2020 08:54
[2020-07-08] MEDS: DIGOXIN 0.125 MG (LANOXIN) TAB PO SCH (09:53)
--- NOTE | 2020-07-08 09:53 | Progress Note ---
Standard Progress Note Progress Notes/Assess & Plan Date Seen by a Provider: Jul 08, 2020 Time Seen by a Provider: 09:00 Progress/Assessment & Plan no complaints Vital Signs Date Time Temp Pulse Resp B/P (MAP) Pulse Ox O2 Delivery O2 Flow Rate FiO2 07/08/20 06:05 36.5 85 20 149/68 (95) 92 Room Air 07/07/20 22:18 Room Air 07/07/20 20:00 Room Air 07/07/20 15:50 Room Air 07/07/20 15:29 36.2 91 16 135/68 98 Room Air 07/07/20 15:28 36.2 91 16 135/68 (90) 98 Room Air I & O 07/08/20 07:00 Intake Total 840 ml Balance 840 ml Laboratory Tests Test 07/08/20 04:35 Range/Units White Blood Count 8.6 4.3-11.0 10^3/uL Red Blood Count 2.71 L 4.35-5.85 10^6/uL Hemoglobin 9.1 L 11.5-16.0 G/DL Hematocrit 27 L 35-52 % Mean Corpuscular Volume 99 80-99 FL Mean Corpuscular Hemoglobin 34 25-34 PG Mean Corpuscular Hemoglobin Concent 34 32-36 G/DL Red Cell Distribution Width 13.1 10.0-14.5 % Platelet Count 294 130-400 10^3/uL Mean Platelet Volume 9.5 7.4-10.4 FL Neutrophils (%) (Auto) 72 42-75 % Lymphocytes (%) (Auto) 15 12-44 % Monocytes (%) (Auto) 12 0-12 % Eosinophils (%) (Auto) 2 0-10 % Basophils (%) (Auto) 0 0-10 % Neutrophils # (Auto) 6.2 1.8-7.8 X 10^3 Lymphocytes # (Auto) 1.3 1.0-4.0 X 10^3 Monocytes # (Auto) 1.0 0.0-1.0 X 10^3 Eosinophils # (Auto) 0.2 0.0-0.3 10^3/uL Basophils # (Auto) 0.0 0.0-0.1 10^3/uL Sodium Level 130 L 135-145 MMOL/L Potassium Level 4.3 3.6-5.0 MMOL/L Chloride Level 94 L 98-107 MMOL/L Carbon Dioxide Level 26 21-32 MMOL/L Anion Gap 10 5-14 MMOL/L Blood Urea Nitrogen 15 7-18 MG/DL Creatinine 0.66 0.60-1.30 MG/DL Estimat Glomerular Filtration Rate > 60 BUN/Creatinine Ratio 23 Glucose Level 111 H 70-105 MG/DL Calcium Level 8.2 L 8.5-10.1 MG/DL Corrected Calcium 8.8 8.5-10.1 MG/DL Total Bilirubin 0.8 0.1-1.0 MG/DL Aspartate Amino Transf (AST/SGOT) 14 5-34 U/L Alanine Aminotransferase (ALT/SGPT) 12 0-55 U/L Alkaline Phosphatase 51 40-136 U/L Total Protein 5.7 L 6.4-8.2 GM/DL Albumin 3.2 3.2-4.5 GM/DL working with PT/OT and standing at bedside reports minimal hip pain s/p L hip bipolar continue mobilizing SILKE BRAGG MD Jul 08, 2020 09:53
[2020-07-08] MEDS: PANTOPRAZOLE 20 MG TABLET (PROTONIX) PO SCH (09:54)
[2020-07-08] MEDS: APIXABAN 5 MG (ELIQUIS) TABLET PO SCH ×2 (09:54→20:20)
[2020-07-08] MEDS: DOCUSATE SODIUM 100 MG (COLACE) CAP PO SCH ×2 (09:55→20:20)
[2020-07-08] MEDS: SENNOSIDES 8.6 MG (SENOKOT) TAB PO SCH ×2 (09:55→20:20)
[2020-07-08] MEDS: polyethylene glycoL POWDER 17 GM (MIRALAX) PACK PO SCH ×2 (09:55→20:20)
--- NOTE | 2020-07-08 09:59 | Physical Therapy Daily Note ---
PT Daily Note-Current Subjective Pt. in bed on bedpan, agrees to therapy. She frequently requires encouragement throughout session to increase activity level. Pt. says "a little bit" of L hip pain while in bed, no objective pain rating given. Mental Status Patient Orientation: Person, Place, Time, Situation Transfers SCALE: Activities may be completed with or without assistive devices. 2-Cthyuytemt-wabwgiv completes the activity by him/herself with no assistance from a helper. 5-Set-up or Clean-up Assistance-helper sets up or cleans up; patient completes activity. [place] assists only prior to or following the activity. 4-Supervision or Touching Assistance-helper provides verbal cues and/or touching/steadying and/or contact guard assistance as patient completes activity. Assistance may be provided throughout the activity or intermittently. 3-Partial/Moderate Assistance-helper does LESS THAN HALF the effort. [place] lifts, holds or supports trunk or limbs, but provides less than half the effort. 2-Substantial/Maximal Assistance-helper does MORE THAN HALF the effort. [place] lifts or holds trunk or limbs and provides more than half the effort. 9-Fzajbzxjm-ovfoyz does ALL the effort. Patient does none of the effort to complete the activity. Or, the assistance of 2 or more helpers is required for the patient to complete the activity. If activity was not attempted, code reason: 7-Patient Refused. 9-Not Applicable-not attempted and the patient did not perform the activity before the current illness, exacerbation or injury. 10-Not Attempted due to Environmental Limitations-(lack of equipment, weather restraints, etc.). 88-Not Attempted due to Medical Conditions or Safety Concerns. Roll Left & Right (QC): 1 Sit to Lying (QC): 1 Lying to Sitting/Side of Bed(Q: 1 Sit to Stand (QC): 1 Chair/Alu-mp-Cuhcz Xfer(QC): 2 max A x 2 for supine to/from sit, mod A x 2 to stand progressing to mod A x 1 with sit to stand from w/c Weight Bearing Right Lower Extremity: Right Weight Bearing/Tolerated Left Lower Extremity: Left Non Weight Bearing Gait Training Does the Patient Walk?: Yes Distance: 3 x 8 ft Gait Persons Needed: 2 Gait Assistive Device: Parallel Bars mod A to stand and ambulate in // bars, followed by w/c Treatments co-tx with OT for assist x 2 with transfers, min A with sitting balance at EOB. OT focusing on ADLs while PT works on transfers and sitting, standing balance. Frequent monitor of BP with changes in position due to orthostatic hypotension. BP in supine: 129/60 mmHg BP in sittin/62 mmHg BP with standin/55 mmHg BP with ambulation: 118/61 mmHg Assessment Current Status: Good Progress, Fair Progress Pt. continues to require max A with in/out of bed transfers and initially mod A x 2 with sit to stand but did improve to mod A x 1 to stand from w/c. Co-tx with OT needing at this time due to poor sitting and standing balance to c omplete ADLs. Pt. was able to ambulate x 3 trips in // bars, cuing needed for gait sequence and mod A with w/c follow. Pt. had occasional c/o dizziness with changes in position, however BP remained WNL throughout session. Pt. returned to room post session with call light in reach, all needs met, hip wedge placed between LE's. PT Short Term Goals Short Term Goals Time Frame: Jul 25, 2020 Roll Left & Right: 3 Sit to lyin Lying to sitting on side of be: 3 Sit to stand: 3 Chair/wvn-ns-cigih transfer: 3 Toilet transfer: 3 Car transfer: 3 Walk 10 feet: 3 Walk 50 feet with two turns: 3 Walk 150 feet: 3 Walking 10ft on uneven surface: 3 PT Glass Scullion Goals Snf Goals PT Snf Goals Time Frame: Aug 08, 2020 Roll Left & Right (QC): 5 Sit to Lying (QC): 5 Lying-Sitting on Side/Bed(QC): 5 Sit to Stand (QC): 5 Chair/Gml-sx-Rfgto Xfer(QC): 5 Toilet Transfer (QC): 5 Car Transfer (QC): 5 Does the Patient Walk: Yes Walk 10 feet (QC): 5 Walk 50ft with 2 Turns (QC): 5 Walk 150 ft (QC): 5 Walking 10ft on Uneven Surface: 5 1 Step (curb) (QC): 4 4 Steps (QC): 9 12 Steps (QC): 9 Picking up an Object (QC): 5 Wheel 50 feet with 2 turns (QC: 5 (if deemed necessary by therapy team) Type: Manual Wheel 150 feet: 5 Type: Manual PT Plan Treatment/Plan Treatment Plan: Continue Plan of Care Treatment Plan: Bed Mobility, Concurrent Therapy, Education, Functional Activity Syl, Functional Strength, Group Therapy, Gait, Safety, Therapeutic Exercise, Transfers Treatment Duration: Aug 08, 2020 Frequency: Modified Program (IRF) (intensity waiver) Estimated Hrs Per Day: 1 hour per day (increase as tolerated) Patient and/or Family Agrees t: Yes Time/GCodes Time In: 840 Time Out: 940 Total Billed Treatment Time: 60 Total Billed Treatment 1, FA x 60' (co-tx with OT 60') PEG MATHEW PT Jul 08, 2020 09:59
[2020-07-08] MEDS: FLUDROCORTISONE 0.1 MG (FLORINEF) TAB PO SCH (10:00)
--- NOTE | 2020-07-08 10:29 | ST Cognitive Linguistic Eval ---
Speech Evaluation-General Medical Diagnosis left hip fracture Onset Date: Jul 02, 2020 Therapy Diagnosis Therapy Diagnosis: Cognitive-communication Precautions Precautions/Isolations: Fall Prevention, Standard Precautions Referral Referring Physician: Dr. Mishra Medical History Pertinent Medical History: Atrial Fib, Arthritis Reviewed History: Yes Social History Current Living Status: Alone Speech PLF-Current Status Prior Level of Function Patient lives in her own home which is connected to her children's home. She receives assistance as needed from her family. Subjective Patient was pleasant and cooperative with the cognitive assessment. Language Eval: Auditory Comprehends Simple Yes/No Ques: Functional Indent/Objects Multiple [place]: Functional Ident/Pics in Multiple [place]: Functional Follows 1-Step Commands: Functional Follows Complex Directions: Functional Follows General Conversations: Functional Language Eval: Verbal Language Completes Spontaneous Greeting: Functional Produces Auto, Serial Info: Functional Imitates Simple Words/Phrases: Functional Word Finding: Functional Requests Basic Needs: Functional States Basic Personal Info: Functional Expresses Complex Ideas: Functional Objective Cognitive Domain Attention: WNL Memory: WNL Problem Solving: Functional Executive Functions: WNL Visuospatial Skills: WNL Composite Severity Rating: WNL Clock Drawing Severity Rating: WNL Objective Formal/Standardized Tests [facility] Mental Status ([facility]) Results 27/30, within normal range of function Oral Motor/Speech Production Within Normal Limits Impression Patient is a pleasant 89 y/o female who was admitted to the ARU s/p fractured hip with surgery. Patient was given the SLUMS at bedside with a score of 27/30 obtained. This score is within the normal range of function. No further ST services are necessary at this time. Speech Patient Assess Expression of Ideas/Wants: Expression (4) Understanding Verbal Content: Understands (4) Brief Interview-Mental Status: Yes Repetition of Three Words: Three (3) Temporal Orientation: Year: Correct (3) Temporal Orientation: Month: Accurate within 5 days(2) Temporal Orientation: Day: Correct (1) Recall : Wear to say "Sock": Yes,after cueing (1) Recall : Color: Yes, after cueing (1) Recall : Bed: Yes,after cueing (1) Memory/Recall Ability: Current season, That he or she is in a hsp/hsp unit Speech-Plan Patient/Family Goals Patient/Family Goals: Patient plans on returning to her home with family support upon discharge. Treatment Plan Speech Therapy Treatment Plan: Discontinue ST Treatment Duration: Jul 08, 2020 Frequency: 1 time per week Estimated Hrs Per Day: .25 hour per day Rehab Potential: Fair Barriers to Learning: Patient's age, medical status Pt/Family Agrees to Plan: Yes Safety Risks/Education Teaching Recipient: Patient Teaching Methods: Discussion Response to Teaching: Verbalize Understanding Education Topics Provided: Safety within her room Time Speech Therapy Time In: 08:15 Speech Therapy Time Out: 08:30 Total Billed Time: 15 Billed Treatment Time 1, CYNDI Cox Jul 08, 2020 10:29
[2020-07-08] MEDS ORDERED: cefTRIAXone FOR IV USE 1,000 MG in WATER (STERILE) FOR INJECTION 10 ML IV SCH (11:00)
--- NOTE | 2020-07-08 11:41 | Occupational Ther Daily Note ---
OT Current Status-Daily Note Subjective Pt alert, lying in bed. Pt c/o hip pain though did not rate. Agrees to therapy with some encouragement. Frequent monitor of BP with changes in position due to orthostatic hypotension. BP in supine: 129/60 mmHg BP in sittin/62 mmHg BP with standin/55 mmHg BP with ambulation: 118/61 mmHg Mental Status/Objective Patient Orientation: Person, Place, Situation Attachments: IV ADL-Treatment Co-treat with PT (8:40-9:40) 2 skilled clinicals required for transfers, mobility, and ADLs. PT for looking at pts standing and sitting balance, w/c mobility, and gait. OT focusing on ADLs and functional standing and sitting balance. Max A x2 from supine to EOB. Max A to transfer from EOB to FWW. Pt transferred from FWW to w/c with CGA. Pt taken to bathroom for sponge bath. Pt was able to wash and dry L and R arm, chest, abdomen,L and R upper leg, buttocks and maria victoria. Assist to wash and dry R and L lower legs. After set up, pt able to don shirt independently. Max assist to thread feet through briefs and pants. Mod A x2 to hike over hips. After set up, pt able to brush hair by self. Pt then taken to gym to complete ambulation. See PT notes for progress. Pt then taken back to room. Pt. continues to require max A with in/out of bed transfers and i nitially mod A x 2 with sit to stand but did improve to mod A x 1 to stand from w/c. Pt left lying in bed. Call light/phone in reach. All needs met. Visitor in room. Therapy Code Descriptions/Definitions Functional [place] Measure: 0=Not Assessed/NA 4=Minimal Assistance 1=Total Assistance 5=Supervision or Setup 2=Maximal Assistance 6=Modified [place] 3=Moderate Assistance 7=Complete IndependenceSCALE: Activities may be completed with or without assistive devices. 0-Ggqwmzxuhl-sjsykoe completes the activity by him/herself with no assistance from a helper. 5-Set-up or Clean-up Assistance-helper sets up or cleans up; patient completes activity. [place] assists only prior to or following the activity. 4-Supervision or Touching Assistance-helper provides verbal cues and/or to uching/steadying and/or contact guard assistance as patient completes activity. Assistance may be provided throughout the activity or intermittently. 3-Partial/Moderate Assistance-helper does LESS THAN HALF the effort. [place] lifts, holds or supports trunk or limbs, but provides less than half the effort. 2-Substantial/Maximal Assistance-helper does MORE THAN HALF the effort. [place] lifts or holds trunk or limbs and provides more than half the effort. 2-Sbbldqakg-tkrtlb does ALL the effort. Patient does none of the effort to complete the activity. Or, the assistance of 2 or more helpers is required for the patient to complete the activity. If activity was not attempted, code reason: 7-Patient Refused. 9-Not Applicable-not attempted and the patient did not perform the activity before the current illness, exacerbation or injury. 10-Not Attempted due to Environmental Limitations-(lack of equipment, weather restraints, etc.). 88-Not Attempted due to Medical Conditions or Safety Concerns. Bathing Location: L Arm, R Arm, L Upper Leg, R Upper Leg, Chest, Abdomen, Buttocks, Perineal Area Shower/Bathe Self (QC): 1 (Pt required 2x assist in standing due to BP issues and weakness.) Upper Body Dressing (QC): 5 Lower Body Dressing (QC): 1 On/Off Footwear: 2 Toileting Hygiene (QC): 1 (bed caldera) Other Treatment max A x 2 for supine to/from sit, mod A x 2 to stand progressing to mod A x 1 with sit to stand from w/c Education OT Patient Education: Safety issues, Transfer techniques Teaching Recipient: Patient Teaching Methods: Discussion Response to Teaching: Verbalize Understanding, Return Demonstration, Reinforcement Needed OT Short Term Goals Short Term Goals Time Frame: Jul 21, 2020 Oral hygiene: 5 Toileting hygiene: 3 Shower/bathe self: 3 Upper body dressin Lower body dressin Putting on/taking off footwear: 3 OT Chcf Goals Chcf Goals Time Frame: Aug 04, 2020 Eating (QC): 6 Oral Hygiene (QC): 6 Toileting Hygiene (QC): 6 Shower/Bathe Self (QC): 6 Upper Body Dressing (QC): 6 Lower Body Dressing (QC): 6 On/Off Footwear (QC): 6 Additional Goals: 1-Demonstrate ADL Tasks, 2-Verbalize Understanding, 3-ImproveStrength/Syl 1=Demonstrate adherence to instructed precautions during ADL tasks. 2=Patient will verbalize/demonstrate understanding of assistive devices/modifications for ADL. 3=Patient will improve strength/tolerance for activity to enable patient to perform ADL's. OT Education/Plan Problem List/Assessment Assessment: Decreased Activ Tolerance, Decreased Safety Aware, Decreased UE Strength, Dependent Transfers, Impaired Bed Mobility, Impaired Cognition, Impaired Coordination, Impaired Funct Balance, Impaired I ADL's, Impaired Self- Care Skills Discharge Recommendations Plan/Recommendations: Continue POC Treatment Plan/Plan of Care Patient would benefit from OT for education, treatment and training to promote independence in ADL's, mobility, safety and/or upper extremity function for ADL's. Plan of Care: ADL Retraining, Functional Mobility, Group Exercise/Act as Ind, UE Funct Exercise/Act Treatment Duration: Aug 04, 2020 Frequency: Modified Program (IRF) Estimated Hrs Per Day: 1 hour per day (increasing as tolerated) Rehab Potential: Fair Time/GCodes Start Time: 08:40 Stop Time: 09:40 Total Time Billed (hr/min): 60 Billed Treatment Time 1 visit - ADL 3(40 mins) FA 1(20 mins) Co-treat-60 mins with PT TERESA MUNOZ Jul 08, 2020 11:41
--- NOTE | 2020-07-08 14:19 | NUR ---
"RD ASSESSMENT PMHx: afib; HTN; PT INTERACTION: Pt was awake and pleasant during nutrition follow-up. Pt states she has been eating okay since last assessment. Note avg PO intake 50-75% x2meal, per chart review. Pt states no issues with nausea, vomiting, constipation, or diarrhea since last assessment. Note last BM was 07/07, and pt currently on bowel regimen of colace BID; miralax BID; and senna BID; per chart review. ABNORMAL NUTRITION-RELATED LAB VALUES LOW: Na 130; Cl 94; Ca 8.2; Pro 5.7; HIGH: glu 111 Est. kcal needs: 1625 kcal | 25 kcal/kg Est. Pro needs: 52 g Pro | 0.8 g Pro/kg PES STATEMENT: Inadequate oral intake (NI-2.1) related to loss of appetite as evidenced by pt interview | avg PO intake 50-75% x2meal INTERVENTION: Continue with current diet order of DYS2 Mechanically Altered diet. Pt may benefit from nutrition supplementation if PO intake declines. Encouraged pt to eat when able. Will continue to follow and reassess as pt needs, intake, and status change. MONITOR/EVALUATE: PO Intake; Plan of Care; Hydration Status; Weight Status; Lab Values Stephanie Andrews, MS, RD, LD"
--- NOTE | 2020-07-08 15:03 | Therapy Group Daily Note ---
Therapy Daily Group Note Patient Education Topic Other List Below (ARU orientation, positioning) Exercises LE Seated Exercise, UE Exercise Session Ratio (pt:therapist): 4:1 Goal of Session: Education on ARU Expectations Goal Met for this Session: Yes Pt Benefit of Group: Increased Functional Strength, Recognition of Peers, Socialization Other/Notes Pt transported using w/c to OT/PT. Group consisted of introductions (name, place living, biggest challenge), socialization, seated UE/LE exercises (theraband UE) and educational topics of benefits of exercise and positioning. Pt introduced self and was appropriate. Pt actively listened to peer introductions. Pt required min instruction and assistance to complete UE/LE exercises. Pt attentive to educational topics . After therapy, pt lying in bed with call light/phone in reach. All needs met in room. Start Time: 13:00 Stop Time: 14:00 Total Billed Treatment Time: 60 Total Billed Treatment 1,GRP 60m MATT ARMSTRONG CARAMEL CUTTER HAND Jul 08, 2020 15:03
--- NOTE | 2020-07-08 15:09 | Physical Therapy Daily Note ---
PT Daily Note-Current Subjective Pt. in room about to get in bed after returning from group session and requests toilet as she believes she may have soiled her pants. Pt. needs instruction for all and mod assist Pain Location: No Pain Reported Transfers SCALE: Activities may be completed with or without assistive devices. 3-Xblgdzszsw-twrjrzc completes the activity by him/herself with no assistance from a helper. 5-Set-up or Clean-up Assistance-helper sets up or cleans up; patient completes activity. [place] assists only prior to or following the activity. 4-Supervision or Touching Assistance-helper provides verbal cues and/or touching/steadying and/or contact guard assistance as patient completes activity. Assistance may be provided throughout the activity or intermittently. 3-Partial/Moderate Assistance-helper does LESS THAN HALF the effort. [place] lifts, holds or supports trunk or limbs, but provides less than half the effort. 2-Substantial/Maximal Assistance-helper does MORE THAN HALF the effort. [place] l ifts or holds trunk or limbs and provides more than half the effort. 9-Rsmbzctra-szqvhs does ALL the effort. Patient does none of the effort to complete the activity. Or, the assistance of 2 or more helpers is required for the patient to complete the activity. If activity was not attempted, code reason: 7-Patient Refused. 9-Not Applicable-not attempted and the patient did not perform the activity before the current illness, exacerbation or injury. 10-Not Attempted due to Environmental Limitations-(lack of equipment, weather restraints, etc.). 88-Not Attempted due to Medical Conditions or Safety Concerns. SPTs w/c to bed, bed to BSC and SPT BSC to bed all min assist with FWW Weight Bearing Right Lower Extremity: Right Weight Bearing/Tolerated Left Lower Extremity: Left Non Weight Bearing Gait Training Gait Assistive Device: FWW pt. took several side steps during TRFs utilizing wt bearing on FWW appropriate ly to allow LLE to move and advance.with instruction Treatments pt. required max assist to doff brief and slacks, pt. with large BM of concerning odor with what appeared to be a discharge of muscousy consistency and some blood. Nursing was called to examine. Pt required max assist to clean. during stance initially pt. c/o dizziness and was sat back down for a rest. Pt. then stood again for pants up , briefs up and TRFd in to bed mod assist LEs Assessment Current Status: Good Progress PT Short Term Goals Short Term Goals Time Frame: Jul 25, 2020 Roll Left & Right: 3 Sit to lyin Lying to sitting on side of be: 3 Sit to stand: 3 Chair/rsp-dt-ovimm transfer: 3 Toilet transfer: 3 Car transfer: 3 Walk 10 feet: 3 Walk 50 feet with two turns: 3 Walk 150 feet: 3 Walking 10ft on uneven surface: 3 PT Custodial Goals Industrial Engineering Technologist Goals PT Industrial Engineering Technologist Goals Time Frame: Aug 08, 2020 Roll Left & Right (QC): 5 Sit to Lying (QC): 5 Lying-Sitting on Side/Bed(QC): 5 Sit to Stand (QC): 5 Chair/Eao-ou-Zfnae Xfer(QC): 5 Toilet Transfer (QC): 5 Car Transfer (QC): 5 Does the Patient Walk: Yes Walk 10 feet (QC): 5 Walk 50ft with 2 Turns (QC): 5 Walk 150 ft (QC): 5 Walking 10ft on Uneven Surface: 5 1 Step (curb) (QC): 4 4 Steps (QC): 9 12 Steps (QC): 9 Picking up an Object (QC): 5 Wheel 50 feet with 2 turns (QC: 5 (if deemed necessary by therapy team) Type: Manual Wheel 150 feet: 5 Type: Manual PT Plan Treatment/Plan Treatment Plan: Continue Plan of Care Treatment Plan: Bed Mobility, Concurrent Therapy, Education, Functional Activity Syl, Functional Strength, Group Therapy, Gait, Safety, Therapeutic Exercise, Transfers Treatment Duration: Aug 08, 2020 Frequency: Modified Program (IRF) (intensity waiver) Estimated Hrs Per Day: 1 hour per day (increase as tolerated) Patient and/or Family Agrees t: Yes Safety Risks/Education Patient Education: Transfer Techniques, Correct Positioning, Safety Issues Teaching Recipient: Patient Teaching Methods: Demonstration, Discussion Response to Teaching: Verbalize Understanding, Return Demonstration, Reinforcement Needed Time/GCodes Time In: 1405 Time Out: 1425 Total Billed Treatment Time: 20 Total Billed Treatment 1,FA20m MATT ARMSTRONG MECHANICAL SOUND TECHNICIAN Jul 08, 2020 15:09
--- NOTE | 2020-07-08 15:32 | NUR ---
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 Patient apparently fell at her home after taking her morning Rx, experienced dizziness, and suffered the fall with injury. Patient resides on the same property as her son/DIL Jeffrey and Latesha Arroyo and her goal is to return there. Their properties are connected via ramping and Jeffrey and Latesha assist as needed. Patient PLOF was independent of all activities prior to injury. PCP: Dr. Rommel Morales DO [place] [facility]: [facility] INSURANCE: [facility] Medicare, no supplement indicated. DME: Patient reports having FWW, wheelchair, ramps as earlier noted, shower chair, grab bars in bathroom, toilet stool frame with arms. OT reported that patient will need lower body dressing stick and sock aid, both private pay purchase items. BARRIERS TO DISCHARGE PLAN: None noted at this time. Patient has an established residence connected to family residence, another daughter moved to [place] to assist with her care as needed. No assistive devices anticipated that are not readily available. CONTACTS: Jeffrey Arroyo (Rita) [address] [place] [address] (attached to patient living quarters) [place] [address] Jeffrey: [phone] Latesha: [phone] Patient has 6 children: Jeffrey as noted, Mark Arroyo near [place], Jalyn Ruth, Gracie, and Corazon Ernst who has moved to [place] to participate in patient's care as needed. Patient understands the purpose and process of the weekly patient care conference and that she was reviewed today. Her next review will be Wednesday, July 15, 2020.
--- NOTE | 2020-07-08 15:40 | NUR ---
Team Conference Met with patient to discuss details specific to today's conference. Patient agreeable to all information discussed as well as agreeable to re-assessment of progress, Monday, July 15.
[2020-07-08 17:20] VITALS: BP 132/64
--- NOTE | 2020-07-08 17:35 | Progress Note - Cardiology ---
Cardiology SOAP Progress Note Subjective: Postural dizziness better No cp or palp or syncope since admission for fracture No focal weakness No n/v/d Gen weakness and malaise Objective: I&O/Vital Signs 07/08/20 07/08/20 07/08/20 06:05 09:00 17:20 Temp 36.5 37.2 Pulse 85 89 Resp 20 16 B/P (MAP) 149/68 (95) 132/64 (86) Pulse Ox 92 96 O2 Delivery Room Air Room Air Room Air 07/08/20 00:00 Intake Total 340 ml Balance 340 ml Weight (Pounds): 129 Weight (Ounces): 8.0 Weight (Calculated Kilograms): 58.711612 Constitutional: AAO x 3, well-developed, well-nourished Respiratory: No accessory muscle use; other (good bilat air entry) Cardiovascular: regular rate-rhythm, S1 and S2, systolic murmur (soft SARAI at card base) Gastrointestional: No tender; soft; No guarding; audible bowel sounds Extremities: No clubbing, No cyanosis, No significant edema Neurologic/Psychiatric: oriented x 3, other (moves all limbs equally) Skin: No rash on exposed areas, No ulcerations on exposed areas Results/Procedures: Labs Laboratory Tests 07/08/20 04:35: White Blood Count 8.6, Red Blood Count 2.71L, Hemoglobin 9.1L, Hematocrit 27L, Mean Corpuscular Volume 99, Mean Corpuscular Hemoglobin 34, Mean Corpuscular Hemoglobin Concent 34, Red Cell Distribution Width 13.1, Platelet Count 294, Mean Platelet Volume 9.5, Neutrophils (%) (Auto) 72, Lymphocytes (%) (Auto) 15, Monocytes (%) (Auto) 12, Eosinophils (%) (Auto) 2, Basophils (%) (Auto) 0, Neutrophils # (Auto) 6.2, Lymphocytes # (Auto) 1.3, Monocytes # (Auto) 1.0, Eosinophils # (Auto) 0.2, Basophils # (Auto) 0.0, Sodium Level 130L, Potassium Level 4.3, Chloride Level 94L, Carbon Dioxide Level 26, Anion Gap 10, Blood Urea Nitrogen 15, Creatinine 0.66, Estimat Glomerular Filtration Rate > 60, BUN/Creatinine Ratio 23, Glucose Level 111H, Calcium Level 8.2L, Corrected Calcium 8.8, Iron Level 33L, Total Bilirubin 0.8, Aspartate Amino Transf (AST/SGOT) 14, Alanine Aminotransferase (ALT/SGPT) 12, Alkaline Phosphatase 51, Total Protein 5.7L, Albumin 3.2 Laboratory Tests 07/08/20 04:35 A/P: Assessment: Labile hypertension and episodes of orthostatic hypotension (demonstrated during this hospitalization). Diltiazem d/c'd during this hospitalization Syncopal episode of undetermined etiology Jul 02, 2020, likely due to postural hypotension. No significant arrhythmia seen on ILR on 07/02/20 S/p L hip fracture repair per Dr. Woodward on Jul 02, 2020 following a syncopal fa ll S/p ILR on 03/24/20 (after syncope in March 2020) that has shown PAF w RVR w/o significant bradycardia so far Paroxysmal atrial flutter, first documented on tele strips on 02/11/18 Probable TIA on 02/11/18, resulting in transient R foot numbness/weakness leading to fall and fracture of the R 5th metatarsal, managed by her pcp Lena for stroke prophylaxis MPI of March 20, 2018 showed no evidence of ischemia or infarction. LVEF 80% Echocardiogram of February 12, 2018 showed LVEF 65-70%. Mild aortic regurg. Mod TR. PASP 35 mmHg. Trivial MR. Carotid u/s of 03/19/20 showed minimal bilat carotid plaque TSH normal (0.73) on lab work of 02/12/18 Plan: * We spoke with her and answered CV-related questions * Continue current regimen * Monitor labs from time to time AKHIL RODRIGUES MD FACP [facility] Jul 08, 2020 17:35
[2020-07-08] MEDS: oxyCODONE/APAP 5/325MG (PERCOCET 5) TABLET PO PRN (20:20)
[2020-07-08] MEDS: ALPRAZolam 0.25 MG (XANAX) TAB PO SCH (20:20)
[2020-07-09] MEDS: oxyCODONE/APAP 5/325MG (PERCOCET 5) TABLET PO PRN (00:24)
[2020-07-09 05:08] VITALS: BP 134/60
--- NOTE | 2020-07-09 06:12 | PM&R Progress Note ---
Subjective HPI/CC On Admission Date Seen by Provider: Jul 09, 2020 Time Seen by Provider: 08:00 Subjective/Events-last exam 07/09/20: Pt had a pretty good night She is in chronic AF, heart rate of 70s so rate controlled Dressing changes looked really good Bowels moved yesterday Pt doing pretty well Hgb 9.1 Sleepiness noted Sodium level 130 Bowels moved yesterday Incontinent after brown was discontinued Conferred with RN Checked meds and labs Review of Systems General: Fatigue, Malaise Neurological: Weakness Objective Exam Vital Signs Vital Signs Date Time Temp Pulse Resp B/P (MAP) Pulse Ox O2 Delivery O2 Flow Rate FiO2 07/09/20 21:35 Room Air 07/09/20 18:22 30.4 84 16 136/62 (86) 96 Capillary Refill : Less Than 3 SecondsLess Than 3 Seconds General Appearance: No Apparent Distress, WD/WN, Chronically ill, Thin HEENT: PERRL/EOMI, Normal ENT Inspection, Pharynx Normal Neck: Full Range of Motion, Normal Inspection, Non Tender, Supple, Carotid Bruit Respiratory: Chest Non Tender, Lungs Clear, Normal Breath Sounds, No Accessory Muscle Use, No Respiratory Distress Cardiovascular: Regular Rate, Rhythm, No Edema, No Gallop, No JVD, No Murmur, Normal Peripheral Pulses, Irregularly Irregular Gastrointestinal: Normal Bowel Sounds, No Organomegaly, No Pulsatile Mass, Non Tender, Soft Back: Normal Inspection, No CVA Tenderness, No Vertebral Tenderness Extremity: Normal Capillary Refill, Normal Inspection, Normal Range of Motion, Non Tender, No Calf Tenderness, No Pedal Edema Neurologic/Psychiatric: Alert, Oriented x3, No Motor/Sensory Deficits, Normal Mood/Affect, 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 FIM Transfers Therapy Code Descriptions/Definitions Functional [place] Measure: 0=Not Assessed/NA 4=Minimal Assistance 1=Total Assistance 5=Supervision or Setup 2=Maximal Assistance 6=Modified [place] 3=Moderate Assistance 7=Complete IndependenceSCALE: Activities may be completed with or without assistive devices. 2-Svoieeleri-nhoowal completes the activity by him/herself with no assistance from a helper. 5-Set-up or Clean-up Assistance-helper sets up or cleans up; patient completes activity. [place] assists only prior to or following the activity. 4-Supervision or Touching Assistance-helper provides verbal cues and/or touching/steadying and/or contact guard assistance as patient completes activity. Assistance may be provided throughout the activity or intermittently. 3-Partial/Moderate Assistance-helper does LESS THAN HALF the effort. [place] lifts, holds or supports trunk or limbs, but provides less than half the effort. 2-Substantial/Maximal Assistance-helper does MORE THAN HALF the effort. [place] lifts or holds trunk or limbs and provides more than half the effort. 1-Gvpdyycnu-rpvgyq does ALL the effort. Patient does none of the effort to complete the activity. Or, the assistance of 2 or more helpers is required for the patient to complete the activity. If activity was not attempted, code reason: 7-Patient Refused. 9-Not Applicable-not attempted and the patient did not perform the activity b efore the current illness, exacerbation or injury. 10-Not Attempted due to Environmental Limitations-(lack of equipment, weather restraints, etc.). 88-Not Attempted due to Medical Conditions or Safety Concerns. Roll Left to Right (QC): 1 Sit to Lying (QC): 1 Sit to Stand (QC): 1 Chair/Uvv-ns-Yybkk Xfer(QC): 2 Car Transfer (QC): 88 (patient having episode of orthostatic hypotension (not safe to perform on this date)) Gait Training Does the Patient Walk?: Yes Distance: 3 x 8 ft Walk 10 feet (QC): 88 Walk 50 ft with 2 Turns(QC): 88 Walk 150 ft (QC): 88 Walking 10ft/uneven surface-QC: 88 Gait Persons Needed: 2 Gait Assistive Device: FWW Wheelchair Training Does the Pt Use a Wheelchair?: No Wheel 50 ft with 2 turns (QC): 88 Wheel 150 ft (QC): 88 Stair Training 1 Step (curb) (QC): 88 4 Steps (QC): 9 12 Steps (QC): 9 Balance Picking up an Object (QC): 88 ADL-Treatment Eating (QC): 6 (Pt able to open crackers and eat without difficulty. Pt brought cup to her mouth and took a drink of water.) Oral Hygiene (QC): 3 (Pt required assistance rinsing dentures, pt able to place in her mouth and place back in the container but does not want to use fixodent to keep them in.) Bathing Location: L Arm, R Arm, L Upper Leg, R Upper Leg, Chest, Abdomen, Buttocks, Perineal Area Shower/Bathe Self (QC): 1 (Pt required 2x assist in standing due to BP issues and weakness.) Upper Body Dressing (QC): 5 Lower Body Dressing (QC): 1 On/Off Footwear (QC): 2 Toileting Hygiene (QC): 1 (bed caldera) Assessment/Plan Assessment and Plan Assess & Plan/Chief Complaint Assessment per Cardiology assessment with my modifications: Labile hypertension and episodes of orthostatic hypotension (demonstrated during this hospitalization). Diltiazem d/c'd during this hospitalization Syncopal episode of undetermined etiology Jul 02, 2020, likely due to postural hypotension. No significant arrhythmia seen on ILR on 07/02/20 S/P L hip fracture repair per Dr. Woodward on Jul 02, 2020 following a syncopal fall S/P ILR on 03/24/20 (after syncope in March 2020) that has shown PAF w RVR w/o significant bradycardia so far Paroxysmal atrial flutter, first documented on tele strips on 02/11/18 Probable TIA on 02/11/18, resulting in transient R foot numbness/weakness leading to fall and fracture of the R 5th metatarsal, managed by her pcp Lena for stroke prophylaxis MPI of March 20, 2018 showed no evidence of ischemia or infarction. LVEF 80% Echocardiogram of February 12, 2018 showed LVEF 65-70%. Mild aortic regurg. Mod TR. PASP 35 mmHg. Trivial MR. Carotid u/s of 03/19/20 showed minimal bilat carotid plaque TSH normal (0.73) on lab work of 02/12/18 Plan: Because of demonstration of orthostatic hypotension, we have stopped long-acting dilt and are using dig for vent rate control during episodes of AF Continue OAC with Eliquis for stroke prophylaxis Monitor labs from time to time IRF protocol Pain control BM regimen 07/08/20: Monitor incontinence Monitor sleepiness Monitor sodium level 07/09/20: Monitor blood pressure Appreciate cardiology Orthostatic hypotension likely will require wheelchair permanently due to fall risk (1) Closed left hip fracture Status: Acute (2) Fall Status: Acute (3) Syncope Status: Acute (4) Orthostatic hypotension (5) GERD (gastroesophageal reflux disease) Status: Chronic (6) Anxiety Status: Chronic (7) Atrial fibrillation with controlled ventricular rate JOVANI CAVAZOS DO Jul 09, 2020 06:12
--- NOTE | 2020-07-09 06:12 | Individualized Plan of Care ---
Individualized Plan of Care Rehab Nursing IPOC Order Admission Date Jul 07, 2020 at 15:05 Current Orders Orders Admission Order(Inpt,Obs,Sdc) (07/07/20 11:42) Vital Signs: Per Unit Policy ( 08,16,00 (07/07/20 11:42) Ismael [place] 09,21 (07/07/20 11:42) Sequential Compression Device Q4H (07/07/20 11:42) Subway Operator-Inpt Rehab Con (07/07/20 11:42) Rehab Nursing Orders-Ipoc (07/07/20 11:42) Physical Therapy Rehab Orders (07/07/20 11:42) Occupational Therapy Rehab Ord (07/07/20 11:42) Speech Therapy Rehab Orders (07/07/20 11:42) Cbc With Automated Diff (07/08/20 06:00) Comprehensive Metabolic Panel (07/08/20 06:00) General/Regular (07/07/20 Lunch) Intake & Output 06,14,22 (07/07/20 11:42) Precautions (Aru) (07/07/20 11:42) Rehab-Intensity Of Therapy (07/07/20 11:42) Initiate Admission Nursing Pro .admission (07/07/20 11:42) Alprazolam Tablet (Xanax Tablet) (07/07/20 11:45) Calcium Carbonate Chew Tablet (Antacid C (07/07/20 11:45) Diphenhydramine Tablet (Benadryl Tablet) (07/07/20 11:45) Docusate Sodium Capsule (Colace Capsule) (07/07/20 21:00) Docusate Sodium Capsule (Colace Capsule) (07/07/20 11:45) Bisacodyl Suppository (Dulcolax Supposit (07/07/20 11:45) Lactulose Oral Solution (Enulose Oral So (07/07/20 11:45) Na Phos/Na Biphos Enema (Fleet Enema Zack (07/07/20 11:45) Guaifenesin/Codeine Syrup (Robitussin Ac (07/07/20 11:45) Loperamide Tablet (Imodium Tablet) (07/07/20 11:45) Enoxaparin Injection (Lovenox Injection) (07/07/20 11:45) Melatonin Tablet (Melatonin Tablet) (07/07/20 11:45) Polyethylene Glycol Powder Pkt (Miralax (07/07/20 21:00) Ondansetron Oral Dissolve Tab (Zofran (07/07/20 11:45) Senna S Tablet (Senokot S Tablet) (07/07/20 21:00) Initiate Admission Nursing Pro .admission (07/07/20 11:42) Admission Arrival Bed Request (07/07/20 14:38) Patient Visit (07/07/20 ) Pt Eval Moderate Complexity (07/07/20 ) Functional Activities, Ea 15 (07/07/20 ) Ambulate 08,12,20 (07/07/20 15:46) Sequential Compression Device Q4H (07/07/20 15:46) Dvt/Vte Risk - Notifiy Physici Q4H (07/07/20 15:46) Catheter(Urinary) Discontinue (07/07/20 18:22) Dressing Order (Intervention) DAILY (07/07/20 18:22) Incentive Spirometry (Nursing) Q2H (07/07/20 18:22) Up With Assistance As Tolerate (07/07/20 18:22) Vital Signs: Anesthesia Post P (07/07/20 18:22) Alprazolam Tablet (Xanax Tablet) (07/07/20 21:00) Apixaban Tablet (Eliquis Tablet) (07/07/20 21:00) Benzocaine 20% Oral Gel (Orajel 20% Max (07/07/20 18:30) Docusate Sodium Capsule (Colace Capsule) (07/07/20 21:00) Digoxin Tablet (Lanoxin Tablet) (07/08/20 09:00) Bisacodyl Suppository (Dulcolax Supposit (07/07/20 18:30) Fludrocortisone Tablet (Florinef Tablet) (07/08/20 09:00) Melatonin Tablet (Melatonin Tablet) (07/07/20 18:30) Polyethylene Glycol Powder Pkt (Miralax (07/07/20 18:30) Antacid Suspension (Mylanta Suspension (07/07/20 18:30) Pantoprazole Tablet (Protonix Tablet) (07/08/20 09:00) Sennosides Tablet (Senokot Tablet) (07/07/20 21:00) Acetaminophen Tablet/Caplet (Tylenol T (07/07/20 18:30) Ondansetron Injection (Zofran Injectio (07/07/20 18:30) Ondansetron Oral Dissolve Tab (Zofran (07/07/20 18:30) Fentanyl Injection (Sublimaze Injection (07/07/20 18:30) Oxycodone Immediate Rel Tablet (Oxyir Ta (07/07/20 18:30) Oxycodone/Apap 5/325mg Tablet (Percocet (07/07/20 18:30) Consult Cardiology (07/07/20 18:22) Incentive Spirometry Initial (07/07/20 18:22) Rt Request For Service (07/07/20 18:22) Incentive Spirometry (Nursing) Q2H (07/07/20 18:22) Ceftriaxone For Iv Use (Rocephin For I (07/08/20 11:00) Iron Test (Fe) (07/08/20 06:00) Patient Visit (07/08/20 ) Functional Activities, Ea 15 (07/08/20 ) Patient Visit (07/08/20 ) Exercise Therap, Ea 15 Min (07/08/20 ) Isolation Central Supply Req (07/08/20 13:50) Patient Visit (07/08/20 ) Therapeutic, Group (07/08/20 ) Patient Visit (07/08/20 ) Functional Activities, Ea 15 (07/08/20 ) Patient Visit (07/08/20 ) Speech Sound Lang Comp (07/08/20 ) Dys2 Mechanically Altered (07/08/20 Dinner) Patient Visit (07/09/20 ) Wheelchair Mgmt/Propulsn 15min (07/09/20 ) Functional Activities, Ea 15 (07/09/20 ) Exercise Therap, Ea 15 Min (07/09/20 ) Iron Sucrose Injection (Venofer Injectio (07/09/20 17:00) Venous Access Request Order (07/10/20 09:00) Rehab Nursing Orders: Ongoing Assess. of Cognitive Status, Ongoing Assess. of Function Status, Bladder Management, Bladder Scan, Bladder Training, Bowel Man agement, Bowel Training, Disease Management & Educaiton, DVT Prophylaxis, Fall Prevention, Fluid/Electrolyte/Nutrition Mgmt, Infection Prevention, Medication Management & Education, Management of Risks & Complications, Management of Skin Intergrity, Nutrition Management, Pain Management, Patient/Family Support, Safety Management Intensity of Therapy to be met Patient to be seen: Min.3h per day/5 of 7d PT IPOC Problem List: Activity Tolerance, Functional Strength, Safety, Balance, Gait, Transfer, Bed Mobility, Other Treatment Plan: Continue Plan of Care Bed Mobility, Concurrent Therapy, Education, Functional Activity Syl, Functional Strength, Group Therapy, Gait, Safety, Therapeutic Exercise, Transfers Treatment Duration: Aug 08, 2020 Frequency: Modified Program (IRF) (intensity waiver) Estimated Hrs Per Day: 1 hour per day (increase as tolerated) OT IPOC Problems: Decreased Activ Tolerance, Decreased Safety Aware, Decreased UE Strength, Dependent Transfers, Impaired Bed Mobility, Impaired Cognition, Impaired Coordination, Impaired Funct Balance, Impaired I ADL's, Impaired Self- Care Skills OT Treatment, Training and Edu: Yes Plan of Care: ADL Retraining, Functional Mobility, Group Exercise/Act as Ind, UE Funct Exercise/Act Treatment Duration: Aug 04, 2020 Frequency: Modified Program (IRF) (27/05) Estimated Hrs Per Day: 1.[address] IPOC Speech Therapy Treatment Plan: Discontinue ST Treatment Duration: Jul 08, 2020 Frequency: 1 time per week Estimated Hrs Per Day: .25 hour per day Subway Operator/Case Mgmt Subway Operator/Case Managemen: Discharge Planning Dietitian/Membership Correspondent Dietitian/Membership Correspondent to monitor nutritional status and make changes and/or recommendations as needed and work with speech pathology on dietary upgrades as the occur. Physician IPOC Medical Issues being managed closely and that require the 24 hour availability of a physician: Chronic AF and severe orthostatic hypotension with syncope will require close monitoring and Cardiology management. Medical Issues: Bowel/Bladder Function, DVT Prophylaxis, Falls Precautions, Fluid/Electrolyte/Nutrition Balance, Infection Protection, Pain Management Brief Synthesis of Preadmission Screen, Post-Admission Evaluation, and Therapy Evaluations: PT and OT will help with wheelchair mobility and monitor BP due to orthostasis and will help regain ADL's. Medical Prognosis: Fair Anticipated Length of Stay: 7 days JOVANI CAVAZOS DO Jul 09, 2020 06:12
[2020-07-09] MEDS: DIGOXIN 0.125 MG (LANOXIN) TAB PO SCH (08:56)
[2020-07-09] MEDS: APIXABAN 5 MG (ELIQUIS) TABLET PO SCH ×2 (08:56→19:53)
[2020-07-09] MEDS: SENNOSIDES 8.6 MG (SENOKOT) TAB PO SCH ×2 (08:56→20:09)
[2020-07-09] MEDS: DOCUSATE SODIUM 100 MG (COLACE) CAP PO SCH ×2 (08:56→20:09)
[2020-07-09] MEDS: PANTOPRAZOLE 20 MG TABLET (PROTONIX) PO SCH (08:56)
[2020-07-09] MEDS: FLUDROCORTISONE 0.1 MG (FLORINEF) TAB PO SCH (08:57)
[2020-07-09] MEDS: polyethylene glycoL POWDER 17 GM (MIRALAX) PACK PO SCH ×2 (08:57→19:28)
--- NOTE | 2020-07-09 10:05 | Occupational Ther Daily Note ---
OT Current Status-Daily Note Subjective Pt laying in bed, agreeable to OT/PT tx. Pt denies pain at rest but with movement 8/10 pain in L hip. Mental Status/Objective Patient Orientation: Person ADL-Treatment Therapy Code Descriptions/Definitions Functional [place] Measure: 0=Not Assessed/NA 4=Minimal Assistance 1=Total Assistance 5=Supervision or Setup 2=Maximal Assistance 6=Modified [place] 3=Moderate Assistance 7=Complete IndependenceSCALE: Activities may be completed with or without assistive devices. 4-Kjmtmtqlgm-jvouhye completes the activity by him/herself with no assistance from a helper. 5-Set-up or Clean-up Assistance-helper sets up or cleans up; patient completes activity. [place] assists only prior to or following the activity. 4-Supervision or Touching Assistance-helper provides verbal cues and/or touching/steadying and/or contact guard assistance as patient completes activity. Assistance may be provided throughout the activity or intermittently. 3-Partial/Moderate Assistance-helper does LESS THAN HALF the effort. [place] lifts, holds or supports trunk or limbs, but provides less than half the effort. 2-Substantial/Maximal Assistance-helper does MORE THAN HALF the effort. [place] lifts or holds trunk or limbs and provides more than half the effort. 5-Wivbwqkwk-mzmroc does ALL the effort. Patient does none of the effort to complete the activity. Or, the assistance of 2 or more helpers is required for the patient to complete the activity. If activity was not attempted, code reason: 7-Patient Refused. 9-Not Applicable-not attempted and the patient did not perform the activity before the current illness, exacerbation or injury. 10-Not Attempted due to Environmental Limitations-(lack of equipment, weather restraints, etc.). 88-Not Attempted due to Medical Conditions or Safety Concerns. On/Off Footwear: 1 (Assist doffing/donning gripper socks and donning tedhose.) Other Treatment Co-treat with PT ([id number]) 2 skilled clinicals required for transfers, mobility, and to decrease fall risk. PT for looking at pts standing and sitting balance, w/c mobility, and gait. OT focusing on ADLs and functional standing/sitting balance and w/c mobility. Pt laying in bed, completed LE exercises in order to warm up leg for movement. OT gathered ADL supplies and set up recliner with chair alarm. Pt then transferred EOB with assist for her L leg, and assistance stabilizing her trunk. Pt sat EOB for ~5 mins, stating she felt dizzy. BP 147/71. Pt then completed SPT from bed to w/c towards the right side, with small shuffling steps and guidance with walker. Pt performed w/c mobility in order to increase BUE functional strength/endurance and to increase independence with functional mobility. Pt educated on how to use w/c and manage breaks. Pt self-propelled around ARU common area, completing 1 turn around object. Pt then propelled back to her room. Pt transferred from w/c to recliner via SPT using FWW. Post tx, pt seated in recliner, call light in reach and all needs met, chair alarm on. Education OT Patient Education: Correct positioning, Energy conservation, Modified ADL techniques, Progress toward Goal/Update tx plan, Purpose of tx/functional activities, Safety issues, Transfer techniques, W/C management Teaching Recipient: Patient Teaching Methods: Discussion Response to Teaching: Verbalize Understanding, Reinforcement Needed OT Short Term Goals Short Term Goals Time Frame: Jul 21, 2020 Oral hygiene: 5 Toileting hygiene: 3 Shower/bathe self: 3 Upper body dressin Lower body dressin Putting on/taking off footwear: 3 OT Mechanical Pencils Assembler Goals Longterm Goals Time Frame: Aug 04, 2020 Eating (QC): 6 Oral Hygiene (QC): 6 Toileting Hygiene (QC): 6 Shower/Bathe Self (QC): 6 Upper Body Dressing (QC): 6 Lower Body Dressing (QC): 6 On/Off Footwear (QC): 6 Additional Goals: 1-Demonstrate ADL Tasks, 2-Verbalize Understanding, 3- ImproveStrength/Syl 1=Demonstrate adherence to instructed precautions during ADL tasks. 2=Patient will verbalize/demonstrate understanding of assistive devices/modifications for ADL. 3=Patient will improve strength/tolerance for activity to enable patient to perform ADL's. OT Education/Plan Problem List/Assessment Assessment: Decreased Activ Tolerance, Decreased UE Strength, Impaired Bed Mobility, Impaired Funct Balance, Impaired I ADL's, Impaired Self-Care Skills Discharge Recommendations Plan/Recommendations: Continue POC Treatment Plan/Plan of Care Patient would benefit from OT for education, treatment and training to promote independence in ADL's, mobility, safety and/or upper extremity function for ADL's. Plan of Care: ADL Retraining, Functional Mobility, Group Exercise/Act as Ind, UE Funct Exercise/Act Treatment Duration: Aug 04, 2020 Frequency: Modified Program (IRF) (27/05) Estimated Hrs Per Day: 1.5 hours per day Rehab Potential: Fair Time/GCodes Start Time: 09:00 Stop Time: 10:00 Total Time Billed (hr/min): 60 Billed Treatment Time 1, FA 4 (60') FRITZ MUIR OT Jul 09, 2020 10:05
--- NOTE | 2020-07-09 11:06 | Physical Therapy Daily Note ---
PT Daily Note-Current Subjective PT note for Monday (07/08/20): Pt laying Supine in bed upon arrival. Pt agrees to PT. Pain Numeric Pain Scale: 5-Moderate Pain Location: Left Location Body Site: Hip Pain Description: Ache Mental Status Patient Orientation: Person, Place, Situation Transfers SCALE: Activities may be completed with or without assistive devices. 4-Zclvoqxzho-xpxnpqy completes the activity by him/herself with no assistance from a helper. 5-Set-up or Clean-up Assistance-helper sets up or cleans up; patient completes activity. [place] assists only prior to or following the activity. 4-Supervision or Touching Assistance-helper provides verbal cues and/or touching/steadying and/or contact guard assistance as patient completes activity. Assistance may be provided throughout the activity or intermittently. 3-Partial/Moderate Assistance-helper does LESS THAN HALF the effort. [place] lifts, holds or supports trunk or limbs, but provides less than half the effort. 2-Substantial/Maximal Assistance-helper does MORE THAN HALF the effort. [place] lifts or holds trunk or limbs and provides more than half the effort. 9-Jaadcfres-iktbwo does ALL the effort. Patient does none of the effort to complete the activity. Or, the assistance of 2 or more helpers is required for the patient to complete the activity. If activity was not attempted, code reason: 7-Patient Refused. 9-Not Applicable-not attempted and the patient did not perform the activity before the current illness, exacerbation or injury. 10-Not Attempted due to Environmental Limitations-(lack of equipment, weather restraints, etc.). 88-Not Attempted due to Medical Conditions or Safety Concerns. Weight Bearing Right Lower Extremity: Right Weight Bearing/Tolerated Left Lower Extremity: Left Non Weight Bearing Exercises Supine Ex: Ankle pumps, Quad Set, Glut sets, Heel Slides, Straight leg raise, Hip abd/add Supine Reps: 15 Treatments Pt completed Supine Ex in bed (see above). Pt resting with all needs met, call light in hand. Assessment Current Status: Good Progress Pt reported some discomfort but SKILLED NURSING CASE MANAGER assists pt to stay w/in Hip Precautions. PT Short Term Goals Short Term Goals Time Frame: Jul 25, 2020 Roll Left & Right: 3 Sit to lyin Lying to sitting on side of be: 3 Sit to stand: 3 Chair/qak-ln-pkstv transfer: 3 Toilet transfer: 3 Car transfer: 3 Walk 10 feet: 3 Walk 50 feet with two turns: 3 Walk 150 feet: 3 Walking 10ft on uneven surface: 3 PT Ground Services Instructor Goals Ground Services Instructor Goals PT Ground Services Instructor Goals Time Frame: Aug 08, 2020 Roll Left & Right (QC): 5 Sit to Lying (QC): 5 Lying-Sitting on Side/Bed(QC): 5 Sit to Stand (QC): 5 Chair/Fhp-dh-Ktgle Xfer(QC): 5 Toilet Transfer (QC): 5 Car Transfer (QC): 5 Does the Patient Walk: Yes Walk 10 feet (QC): 5 Walk 50ft with 2 Turns (QC): 5 Walk 150 ft (QC): 5 Walking 10ft on Uneven Surface: 5 1 Step (curb) (QC): 4 4 Steps (QC): 9 12 Steps (QC): 9 Picking up an Object (QC): 5 Wheel 50 feet with 2 turns (QC: 5 (if deemed necessary by therapy team) Type: Manual Wheel 150 feet: 5 Type: Manual PT Plan Problem List Problem List: Activity Tolerance, Functional Strength, Safety Treatment/Plan Treatment Plan: Continue Plan of Care Treatment Plan: Bed Mobility, Concurrent Therapy, Education, Functional Activity Syl, Functional Strength, Group Therapy, Gait, Safety, Therapeutic E xercise, Transfers Treatment Duration: Aug 08, 2020 Frequency: Modified Program (IRF) (intensity waiver) Estimated Hrs Per Day: 1 hour per day (increase as tolerated) Patient and/or Family Agrees t: Yes Safety Risks/Education Patient Education: Reviewed Precautions, Correct Positioning, Safety Issues Teaching Recipient: Patient Teaching Methods: Discussion Response to Teaching: Verbalize Understanding Time/GCodes Time In: 1145 Time Out: 1200 Total Billed Treatment Time: 15 Total Billed Treatment 1, EX (15m) This note should be reflected for Therapy on 07/08/2020. DUNCAN JACOBS PTA Jul 09, 2020 11:06
--- NOTE | 2020-07-09 11:07 | Physical Therapy Daily Note ---
PT Daily Note-Current Subjective Pt laying Supine in bed upon arrival. Pt agrees to PT. Transfers SCALE: Activities may be completed with or without assistive devices. 4-Lesgtrsvkt-iisjgre completes the activity by him/herself with no assistance from a helper. 5-Set-up or Clean-up Assistance-helper sets up or cleans up; patient completes activity. [employer] assists only prior to or following the activity. 4-Supervision or Touching Assistance-helper provides verbal cues and/or touching/steadying and/or contact guard assistance as patient completes activity. Assistance may be provided throughout the activity or intermittently. 3-Partial/Moderate Assistance-helper does LESS THAN HALF the effort. [employer] lifts, holds or supports trunk or limbs, but provides less than half the effort. 2-Substantial/Maximal Assistance-helper does MORE THAN HALF the effort. [employer] lifts or holds trunk or limbs and provides more than half the effort. 1-Pfiwuqvgt-mhfbbj does ALL the effort. Patient does none of the effort to complete the activity. Or, the assistance of 2 or more helpers is required for the patient to complete the activity. If activity was not attempted, code reason: 7-Patient Refused. 9-Not Applicable-not attempted and the patient did not perform the activity before the current illness, exacerbation or injury. 10-Not Attempted due to Environmental Limitations-(lack of equipment, weather restraints, etc.). 88-Not Attempted due to Medical Conditions or Safety Concerns. Lying to Sitting/Side of Bed(Q: 4 Sit to Stand (QC): 4 Weight Bearing Right Lower Extremity: Right Weight Bearing/Tolerated Left Lower Extremity: Left Non Weight Bearing Wheelchair Training Does the Pt Use a Wheelchair?: Yes Wheel 50 ft with 2 turns (QC): 5 Type of Wheelchair: Manual Treatments Co-treat with PT ([id number]) 2 skilled clinicals required for transfers, mobility, and to decrease fall risk. PT for looking at pts standing and sitting balance, w/c mobility, and gait. OT focusing on ADLs and functional standing/sitting balance and w/c mobility. Pt laying in bed, completed LE exercises in order to warm up leg for movement. OT gathered ADL supplies and set up recliner with chair alarm. Pt then transferred EOB with assist for her L leg, and assistance stabilizing her trunk. Pt sat EOB for ~5 mins, stating she felt dizzy. BP 147/71. Pt then completed SPT from bed to w/c towards the right side, with small shuffling steps and guidance with walker. Pt performed w/c mobility in order to increase BUE functional strength/endurance and to increase independence with functional mobility. Pt educated on how to use w/c and manage breaks. Pt self-propelled around [facility] common area, completing 1 turn around object. Pt then propelled back to her room. Pt transferred from w/c to recliner via SPT using FWW. Post tx, pt seated in recliner, call light in reach and all needs met, chair alarm on. Assessment Current Status: Fair Progress Pt is very nervous about hip and unsure of self, Therapists reassures. Pt feels dizzy during transfers so given time to reacclamate self. PT Short Term Goals Short Term Goals Time Frame: Jul 25, 2020 Roll Left & Right: 3 Sit to lyin Lying to sitting on side of be: 3 Sit to stand: 3 Chair/zwd-jc-tfcur transfer: 3 Toilet transfer: 3 Car transfer: 3 Walk 10 feet: 3 Walk 50 feet with two turns: 3 Walk 150 feet: 3 Walking 10ft on uneven surface: 3 PT Cycle Touring Guide Goals Cycle Touring Guide Goals PT Cycle Touring Guide Goals Time Frame: Aug 08, 2020 Roll Left & Right (QC): 5 Sit to Lying (QC): 5 Lying-Sitting on Side/Bed(QC): 5 Sit to Stand (QC): 5 Chair/Xpm-ey-Tlnms Xfer(QC): 5 Toilet Transfer (QC): 5 Car Transfer (QC): 5 Does the Patient Walk: Yes Walk 10 feet (QC): 5 Walk 50ft with 2 Turns (QC): 5 Walk 150 ft (QC): 5 Walking 10ft on Uneven Surface: 5 1 Step (curb) (QC): 4 4 Steps (QC): 9 12 Steps (QC): 9 Picking up an Object (QC): 5 Wheel 50 feet with 2 turns (QC: 5 (if deemed necessary by therapy team) Type: Manual Wheel 150 feet: 5 Type: Manual PT Plan Problem List Problem List: Activity Tolerance, Functional Strength, Safety, Balance Treatment/Plan Treatment Plan: Continue Plan of Care Treatment Plan: Bed Mobility, Concurrent Therapy, Education, Functional Activity Syl, Functional Strength, Group Therapy, Gait, Safety, Therapeutic Exercise, Transfers Treatment Duration: Aug 08, 2020 Frequency: Modified Program (IRF) (intensity waiver) Estimated Hrs Per Day: 1 hour per day (increase as tolerated) Patient and/or Family Agrees t: Yes Safety Risks/Education Patient Education: Transfer Techniques, Correct Positioning, W/C Management, Safety Issues Teaching Recipient: Patient Teaching Methods: Discussion Response to Teaching: Verbalize Understanding Time/GCodes Time In: 900 Time Out: 1000 Total Billed Treatment Time: 60 Total Billed Treatment 1, [facility] x2 (25m) & FA x2 (35m) DUNCAN JACOBS GOLD LEAF ROLLER Jul 09, 2020 11:07
--- NOTE | 2020-07-09 12:00 | NUR ---
IV INFILTRATED. REMOVED, NOTIFIED. ORDERS TO RESTART IV AND BEGIN IV VENOFER 200MG IV Q48HRS.
--- NOTE | 2020-07-09 12:30 | NUR ---
PT UP TO COMMODE FOR BM, RECTAL PROLAPSE WITH SOME BLOODY DISCHARGE NOTED. PT STATES, "I SAW DR. GREENWOOD THIS SUMMER AND HAD A PESSARY PLACED. AREA GENTLY CLEANSED,PT RETURNS TO BED. NOTIFIED, AWAITING ORDERS.
--- NOTE | 2020-07-09 13:32 | Occupational Ther Daily Note ---
OT Current Status-Daily Note Subjective Pt laying in bed, agreeable to OT Tx, daughter present. Pt did not verbalize any pain during session. ADL-Treatment Therapy Code Descriptions/Definitions Functional [place] Measure: 0=Not Assessed/NA 4=Minimal Assistance 1=Total Assistance 5=Supervision or Setup 2=Maximal Assistance 6=Modified [place] 3=Moderate Assistance 7=Complete IndependenceSCALE: Activities may be completed with or without assistive devices. 7-Wrudaclfln-naketfl completes the activity by him/herself with no assistance from a helper. 5-Set-up or Clean-up Assistance-helper sets up or cleans up; patient completes activity. [place] assists only prior to or following the activity. 4-Supervision or Touching Assistance-helper provides verbal cues and/or touching/steadying and/or contact guard assistance as patient completes activity. Assistance may be provided throughout the activity or intermittently. 3-Partial/Moderate Assistance-helper does LESS THAN HALF the effort. [place] lifts, holds or supports trunk or limbs, but provides less than half the effort. 2-Substantial/Maximal Assistance-helper does MORE THAN HALF the effort. [place] lifts or holds trunk or limbs and provides more than half the effort. 2-Pebmeqotc-xdtffh does ALL the effort. Patient does none of the effort to complete the activity. Or, the assistance of 2 or more helpers is required for the patient to complete the activity. If activity was not attempted, code reason: 7-Patient Refused. 9-Not Applicable-not attempted and the patient did not perform the activity before the current illness, exacerbation or injury. 10-Not Attempted due to Environmental Limitations-(lack of equipment, weather restraints, etc.). 88-Not Attempted due to Medical Conditions or Safety Concerns. Other Treatment Pt laying in bed, OT educated pt on AE including dressing stick, digital marketing manager, long handled shoe horn, and sock aide. OT then demo'd using a dressing stick to doff sock, pt able to doff R sock with cues and min assistance. OT then demo'd using a sock aide to don sock onto R foot, OT set up sock onto sock aide and provided it to pt, OT assisted pt with getting sock aide onto her foot and then pt able to manage sock onto her foot with cues to pull sock aide all the way up. OT then handed pt sock aide and sock, pt able to don sock onto aide with min cues, OT assisted with sock aide onto toes, pt then able to pull up with cues to pull sock aide all the way out of the sock. Pt verbalized understanding of AE on this date. Post OT tx, pt laying in bed, call light in reach and all needs met. Education OT Patient Education: Correct positioning, Energy conservation, Modified ADL techniques, Progress toward Goal/Update tx plan, Purpose of tx/functional activities, Use of adapted equipment Teaching Recipient: Patient Teaching Methods: Discussion Response to Teaching: Return Demonstration, Reinforcement Needed OT Short Term Goals Short Term Goals Time Frame: Jul 21, 2020 Oral hygiene: 5 Toileting hygiene: 3 Shower/bathe self: 3 Upper body dressin Lower body dressin Putting on/taking off footwear: 3 OT Longterm Goals Drywall Stripper Helper Goals Time Frame: Aug 04, 2020 Eating (QC): 6 Oral Hygiene (QC): 6 Toileting Hygiene (QC): 6 Shower/Bathe Self (QC): 6 Upper Body Dressing (QC): 6 Lower Body Dressing (QC): 6 On/Off Footwear (QC): 6 Additional Goals: 1-Demonstrate ADL Tasks, 2-Verbalize Understanding, 3-Improv eStrength/Syl 1=Demonstrate adherence to instructed precautions during ADL tasks. 2=Patient will verbalize/demonstrate understanding of assistive devices/modifications for ADL. 3=Patient will improve strength/tolerance for activity to enable patient to p erform ADL's. OT Education/Plan Problem List/Assessment Assessment: Decreased Activ Tolerance, Decreased UE Strength, Impaired Bed Mobility, Impaired Funct Balance, Impaired I ADL's, Impaired Self-Care Skills Discharge Recommendations Plan/Recommendations: Continue POC Equpiment Recommendations-D/C: Hip Kit Treatment Plan/Plan of Care Patient would benefit from OT for education, treatment and training to promote independence in ADL's, mobility, safety and/or upper extremity function for ADL's. Plan of Care: ADL Retraining, Functional Mobility, Group Exercise/Act as Ind, UE Funct Exercise/Act Treatment Duration: Aug 04, 2020 Frequency: Modified Program (IRF) (27/05) Estimated Hrs Per Day: 1.5 hours per day Rehab Potential: Fair Time/GCodes Start Time: 13:00 Stop Time: 13:30 Total Time Billed (hr/min): 30 Billed Treatment Time 1, ADL 2 FRITZ MUIR OT Jul 09, 2020 13:32
--- NOTE | 2020-07-09 14:59 | Cardiology Progress Note ---
Cardiology SOAP Progress Note Subjective: No cardiac complaint. Objective: I&O/Vital Signs 07/09/20 07/09/20 05:08 09:00 Temp 36.8 Pulse 74 Resp 18 B/P (MAP) 134/60 (84) Pulse Ox 97 O2 Delivery Room Air Room Air 07/09/20 00:00 Intake Total 660 ml Balance 660 ml Weight (Pounds): 129 Weight (Ounces): 8.0 Weight (Calculated Kilograms): 58.760830 Constitutional: AAO x 3, well-developed, well-nourished Respiratory: No accessory muscle use; other (good bilat air entry) Cardiovascular: regular rate-rhythm, S1 and S2, systolic murmur (soft SARAI at card base) Gastrointestional: No tender; soft; No guarding; audible bowel sounds Extremities: No clubbing, No cyanosis, No significant edema Neurologic/Psychiatric: oriented x 3, other (moves all limbs equally) Skin: No rash on exposed areas, No ulcerations on exposed areas A/P: Assessment/Dx: Labile hypertension and episodes of orthostatic hypotension (demonstrated during this hospitalization). Diltiazem d/c'd during this hospitalization Syncopal episode of undetermined etiology Jul 02, 2020, likely due to postural hypotension. No significant arrhythmia seen on ILR on 07/02/20 S/p L hip fracture repair per Dr. oWodward on Jul 02, 2020 following a syncopal fall S/p ILR on 03/24/20 (after syncope in March 2020) that has shown PAF w RVR w/o significant bradycardia so far Paroxysmal atrial flutter, first documented on tele strips on 02/11/18 Probable TIA on 02/11/18, resulting in transient R foot numbness/weakness leading to fall and fracture of the R 5th metatarsal, managed by her pcp Lena for stroke prophylaxis MPI of March 20, 2018 showed no evidence of ischemia or infarction. LVEF 80% Echocardiogram of February 12, 2018 showed LVEF 65-70%. Mild aortic regurg. Mod TR. PASP 35 mmHg. Trivial MR. Carotid u/s of 03/19/20 showed minimal bilat carotid plaque TSH normal (0.73) on lab work of 02/12/18 Plan: * Continue current regimen * Monitor labs from time to time Thank you for your consultation. Please call me if you have any questions. M. Bradley Khalid, MD, FACP, FACC, FSCAI, FHRS, CCDS Interventional Cardiology Cardiac Electrophysiology Vascular Medicine and Endovascular Interventions Arturo TAY MD Jul 09, 2020 14:59
--- NOTE | 2020-07-09 15:04 | Physical Therapy Daily Note ---
PT Daily Note-Current Subjective Pt laying Supine in bed upon arrival. Pt's daughter is present. Pt agrees to PT. Pain Numeric Pain Scale: 8 Location: Left Location Body Site: Hip Pain Description: Ache Mental Status Patient Orientation: Person, Place, Situation Transfers SCALE: Activities may be completed with or without assistive devices. 8-Lvejhzmnwv-btglvdo completes the activity by him/herself with no assistance from a helper. 5-Set-up or Clean-up Assistance-helper sets up or cleans up; patient completes activity. [place] assists only prior to or following the activity. 4-Supervision or Touching Assistance-helper provides verbal cues and/or touching/steadying and/or contact guard assistance as patient completes activity. Assistance may be provided throughout the activity or intermittently. 3-Partial/Moderate Assistance-helper does LESS THAN HALF the effort. [place] lifts, holds or supports trunk or limbs, but provides less than half the effort. 2-Substantial/Maximal Assistance-helper does MORE THAN HALF the effort. [place] lifts or holds trunk or limbs and provides more than half the effort. 9-Vgaviehzb-xwgqot does ALL the effort. Patient does none of the effort to complete the activity. Or, the assistance of 2 or more helpers is required for the patient to complete the activity. If activity was not attempted, code reason: 7-Patient Refused. 9-Not Applicable-not attempted and the patient did not perform the activity before the current illness, exacerbation or injury. 10-Not Attempted due to Environmental Limitations-(lack of equipment, weather restraints, etc.). 88-Not Attempted due to Medical Conditions or Safety Concerns. Lying to Sitting/Side of Bed(Q: 3 Sit to Stand (QC): 4 Weight Bearing Right Lower Extremity: Right Weight Bearing/Tolerated Left Lower Extremity: Left Non Weight Bearing Exercises Supine Ex: Ankle pumps, Quad Set, Glut sets, Heel Slides, Straight leg raise, Hip abd/add Supine Reps: 15 Treatments Pt completes Supine Ex before transferring to EOB for practice. Pt then reports needing to use BSC. ROLL FORM OPERATOR assists transferring to BSC. Pt has call light and LINK AND LINK KNITTING MACHINE OPERATOR to assist at end of tx. Assessment Current Status: Good Progress Pt is gaining strength but needs encouragement to try mobility with ROLL FORM OPERATOR's assistance. PT Short Term Goals Short Term Goals Time Frame: Jul 25, 2020 Roll Left & Right: 3 Sit to lyin Lying to sitting on side of be: 3 Sit to stand: 3 Chair/dfn-lk-xcizt transfer: 3 Toilet transfer: 3 Car transfer: 3 Walk 10 feet: 3 Walk 50 feet with two turns: 3 Walk 150 feet: 3 Walking 10ft on uneven surface: 3 PT Half-Way Goals Alcohol Still Operator Goals PT Alcohol Still Operator Goals Time Frame: Aug 08, 2020 Roll Left & Right (QC): 5 Sit to Lying (QC): 5 Lying-Sitting on Side/Bed(QC): 5 Sit to Stand (QC): 5 Chair/Ral-lv-Bfiea Xfer(QC): 5 Toilet Transfer (QC): 5 Car Transfer (QC): 5 Does the Patient Walk: Yes Walk 10 feet (QC): 5 Walk 50ft with 2 Turns (QC): 5 Walk 150 ft (QC): 5 Walking 10ft on Uneven Surface: 5 1 Step (curb) (QC): 4 4 Steps (QC): 9 12 Steps (QC): 9 Picking up an Object (QC): 5 Wheel 50 feet with 2 turns (QC: 5 (if deemed necessary by therapy team) Type: Manual Wheel 150 feet: 5 Type: Manual PT Plan Problem List Problem List: Activity Tolerance, Functional Strength, Safety, Transfer Treatment/Plan Treatment Plan: Continue Plan of Care Treatment Plan: Bed Mobility, Concurrent Therapy, Education, Functional Activity Syl, Functional Strength, Group Therapy, Gait, Safety, Therapeutic Exercise, Transfers Treatment Duration: Aug 08, 2020 Frequency: Modified Program (IRF) (intensity waiver) Estimated Hrs Per Day: 1 hour per day (increase as tolerated) Patient and/or Family Agrees t: Yes Safety Risks/Education Patient Education: Transfer Techniques, Correct Positioning, Safety Issues Teaching Recipient: Patient, Family Teaching Methods: Discussion Response to Teaching: Verbalize Understanding Time/GCodes Time In: 1330 Time Out: 1400 Total Billed Treatment Time: 30 Total Billed Treatment 1, EX (20m) & FA (10m) DUNCAN JACOBS PTA Jul 09, 2020 15:04
[2020-07-09] MEDS: ACETAMINOPHEN 325 MG TABLET PO PRN (16:42)
[2020-07-09 18:22] VITALS: BP 136/62
[2020-07-09] MEDS: ALPRAZolam 0.25 MG (XANAX) TAB PO SCH (19:53)
[2020-07-09] MEDS ORDERED: IRON SUCROSE 200 MG/10 ML (VENOFER) VIAL IV ONE (20:06)
[2020-07-09] MEDS: IRON SUCROSE 200 MG/10 ML (VENOFER) VIAL IV SCH (20:11)
--- NOTE | 2020-07-09 21:32 | NUR ---
Dr. Mishra notified of pts poor venous access. New orders received for a Midline in am.
[2020-07-10] MEDS: ACETAMINOPHEN 325 MG TABLET PO PRN ×3 (04:09→20:51)
[2020-07-10 05:20] VITALS: BP 147/65
[2020-07-10] MEDS: oxyCODONE/APAP 5/325MG (PERCOCET 5) TABLET PO PRN ×2 (06:05→22:54)
--- NOTE | 2020-07-10 09:15 | Occupational Ther Daily Note ---
OT Current Status-Daily Note Subjective Pt laying in bed, agreeable to OT Tx with focus on ADLS, pt did not report pain during tx. ADL-Treatment Therapy Code Descriptions/Definitions Functional [place] Measure: 0=Not Assessed/NA 4=Minimal Assistance 1=Total Assistance 5=Supervision or Setup 2=Maximal Assistance 6=Modified [place] 3=Moderate Assistance 7=Complete IndependenceSCALE: Activities may be completed with or without assistive devices. 2-Fxzqfbilhr-gdwgtab completes the activity by him/herself with no assistance from a helper. 5-Set-up or Clean-up Assistance-helper sets up or cleans up; patient completes activity. [place] assists only prior to or following the activity. 4-Supervision or Touching Assistance-helper provides verbal cues and/or touching/steadying and/or contact guard assistance as patient completes activity. Assistance may be provided throughout the activity or intermittently. 3-Partial/Moderate Assistance-helper does LESS THAN HALF the effort. [place] lifts, holds or supports trunk or limbs, but provides less than half the effort. 2-Substantial/Maximal Assistance-helper does MORE THAN HALF the effort. [place] lifts or holds trunk or limbs and provides more than half the effort. 2-Gxsslgttg-urtnby does ALL the effort. Patient does none of the effort to complete the activity. Or, the assistance of 2 or more helpers is required for the patient to complete the activity. If activity was not attempted, code reason: 7-Patient Refused. 9-Not Applicable-not attempted and the patient did not perform the activity before the current illness, exacerbation or injury. 10-Not Attempted due to Environmental Limitations-(lack of equipment, weather restraints, etc.). 88-Not Attempted due to Medical Conditions or Safety Concerns. Bathing Location: L Arm, R Arm, L Upper Leg, R Upper Leg, Chest, Abdomen, Perineal Area Shower/Bathe Self (QC): 3 (Mod A, Pt able to wash upper body with cues for sequencing. Pt stood at FWW as OT washed buttocks.) Lower Body Dressing (QC): 2 (Max A for task, OT educated pt on using dressing stick vs trade sales assistant to don/doff brief. Pt required cues for sequencing of task and to maintain precautions.) On/Off Footwear: 2 (Assist to don/doff tedhose. Pt able to use dressing stick to doff socks, and sock aide to don socks. Pt requried max verbal/tactile cues for sequencing of task and to maintain precautions.) Toileting Hygiene (QC): 2 (Pt stood at FWW, managed pants down. Pt then stated she needed to use the bed caldera that she was having a BM. OT placed bedpan, then assisted pt with doffing soiled brief the rest of the way, and with managing clean briefs on.) Other Treatment Pt laying in bed, transferred EOB with assistance moving LLE and trunk. Pt sat EOB for a couple of mins, stating she felt dizzy but "normal" dizziness. Once pt felt better, she completed sponge bath at EOB. Pt washed face, when OT handed her another wipe, pt continued to wash her face. Pt required verbal/tactile cues to continue with task and wash other parts. Pt stood at FWW in order to manage briefs down, during this pt reports she needs to have a BM and needs the bed caldera. OT positioned the bed caldera under pt and she sat EOB for task. Pt then stood at FWW as OT assisted with washing buttocks. Pt then sat EOB to finish with sponge bath and don brief, OT educated pt on using trade sales assistant vs dressing stick. Pt transferred from EOB to recliner, taking small steps, and requiring guidance to keep walker close. At recliner, pt doffed footwear, OT assisted pt with washing below the knee, then donned footwear. Nurse informed OT that pt was getting a midline, OT assisted pt from recliner to EOB, then supine. Pt required assi stance lifting LLE into bed. Post OT Tx, pt laying in bed, call light in reach and all needs met. Education OT Patient Education: Correct positioning, Energy conservation, Modified ADL techniques, Progress toward Goal/Update tx plan, Purpose of tx/functional activities, Safety issues, Transfer techniques, Use of adapted equipment Teaching Recipient: Patient Teaching Methods: Discussion Response to Teaching: Verbalize Understanding OT Short Term Goals Short Term Goals Time Frame: Jul 21, 2020 Oral hygiene: 5 Toileting hygiene: 3 Shower/bathe self: 3 Upper body dressin Lower body dressin Putting on/taking off footwear: 3 OT Director Medical Surgical Goals [facility] Goals Time Frame: Aug 04, 2020 Eating (QC): 6 Oral Hygiene (QC): 6 Toileting Hygiene (QC): 6 Shower/Bathe Self (QC): 6 Upper Body Dressing (QC): 6 Lower Body Dressing (QC): 6 On/Off Footwear (QC): 6 Additional Goals: 1-Demonstrate ADL Tasks, 2-Verbalize Understanding, 3- ImproveStrength/Syl 1=Demonstrate adherence to instructed precautions during ADL tasks. 2=Patient will verbalize/demonstrate understanding of assistive devices/modifications for ADL. 3=Patient will improve strength/tolerance for activity to enable patient to perform ADL's. OT Education/Plan Problem List/Assessment Assessment: Decreased Activ Tolerance, Decreased UE Strength, Impaired Bed Mobility, Impaired Funct Balance, Impaired I ADL's, Impaired Self-Care Skills, Restricted Funct UE ROM Discharge Recommendations Plan/Recommendations: Continue POC Treatment Plan/Plan of Care Patient would benefit from OT for education, treatment and training to promote independence in ADL's, mobility, safety and/or upper extremity function for ADL's. Plan of Care: ADL Retraining, Functional Mobility, Group Exercise/Act as Ind, UE Funct Exercise/Act Treatment Duration: Aug 04, 2020 Frequency: Modified Program (IRF) (27/05) Estimated Hrs Per Day: 1.5 hours per day Rehab Potential: Fair Time/GCodes Start Time: 07:50 Stop Time: 09:00 Total Time Billed (hr/min): 70 Billed Treatment Time 1, ADL 5 FRITZ MUIR OT Jul 10, 2020 09:15
--- NOTE | 2020-07-10 09:54 | PM&R Progress Note ---
Subjective HPI/CC On Admission Date Seen by Provider: Jul 10, 2020 Time Seen by Provider: 09:00 Subjective/Events-last exam 07/10/20: Midline was placed and it works well IV iron ordered Bowels moved yesterday Consulting Dr. Schmitz for pessary 07/09/20: Pt had a pretty good night She is in chronic AF, heart rate of 70s so rate controlled Dressing changes looked really good Bowels moved yesterday Pt doing pretty well Hgb 9.1 Sleepiness noted Sodium level 130 Bowels moved yesterday Incontinent after brown was discontinued Conferred with RN Checked meds and labs Review of Systems General: Fatigue, Malaise Neurological: Weakness Objective Exam Vital Signs Vital Signs Date Time Temp Pulse Resp B/P (MAP) Pulse Ox O2 Delivery O2 Flow Rate FiO2 07/11/20 05:38 36.6 75 18 145/65 (91) 96 Room Air Capillary Refill : Less Than 3 SecondsLess Than 3 Seconds General Appearance: No Apparent Distress, WD/WN, Chronically ill, Thin HEENT: PERRL/EOMI, Normal ENT Inspection, Pharynx Normal Neck: Full Range of Motion, Normal Inspection, Non Tender, Supple, Carotid Bruit Respiratory: Chest Non Tender, Lungs Clear, Normal Breath Sounds, No Accessory Muscle Use, No Respiratory Distress Cardiovascular: Regular Rate, Rhythm, No Edema, No Gallop, No JVD, No Murmur, Normal Peripheral Pulses, Irregularly Irregular Gastrointestinal: Normal Bowel Sounds, No Organomegaly, No Pulsatile Mass, Non Tender, Soft Back: Normal Inspection, No CVA Tenderness, No Vertebral Tenderness Extremity: Normal Capillary Refill, Normal Inspection, Normal Range of Motion, Non Tender, No Calf Tenderness, No Pedal Edema Neurologic/Psychiatric: Alert, Oriented x3, No Motor/Sensory Deficits, Normal Mood/Affect, load tallier II-XII Norm as Tested, Motor Weakness (left leg limited ROM due to pain) Skin: Normal Color, Warm/Dry Lymphatic: No Adenopathy Results/Procedures Lab Patient resulted labs reviewed. FIM Transfers Therapy Code Descriptions/Definitions Functional [place] Measure: 0=Not Assessed/NA 4=Minimal Assistance 1=Total Assistance 5=Supervision or Setup 2=Maximal Assistance 6=Modified [place] 3=Moderate Assistance 7=Complete IndependenceSCALE: Activities may be completed with or without assistive devices. 4-Dcvirqehcw-uzwzevh completes the activity by him/herself with no assistance from a helper. 5-Set-up or Clean-up Assistance-helper sets up or cleans up; patient completes activity. [place] assists only prior to or following the activity. 4-Supervision or Touching Assistance-helper provides verbal cues and/or touching/steadying and/or contact guard assistance as patient completes activity. Assistance may be provided throughout the activity or intermittently. 3-Partial/Moderate Assistance-helper does LESS THAN HALF the effort. [place] lifts, holds or supports trunk or limbs, but provides less than half the effort. 2-Substantial/Maximal Assistance-helper does MORE THAN HALF the effort. [place] lifts or holds trunk or limbs and provides more than half the effort. 1-Mhpswqhic-gstrud does ALL the effort. Patient does none of the effort to complete the activity. Or, the assistance of 2 or more helpers is required for the patient to complete the activity. If activity was not attempted, code reason: 7-Patient Refused. 9-Not Applicable-not attempted and the patient did not perform the activity before the current illness, exacerbation or injury. 10-Not Attempted due to Environmental Limitations-(lack of equipment, weather restraints, etc.). 88-Not Attempted due to Medical Conditions or Safety Concerns. Roll Left to Right (QC): 1 Sit to Lying (QC): 1 Sit to Stand (QC): 4 Chair/Tye-su-Qhkhn Xfer(QC): 2 Car Transfer (QC): 88 (patient having episode of orthostatic hypotension (not safe to perform on this date)) Gait Training Does the Patient Walk?: Yes Distance: 3 x 8 ft Walk 10 feet (QC): 88 Walk 50 ft with 2 Turns(QC): 88 Walk 150 ft (QC): 88 Walking 10ft/uneven surface-QC: 88 Gait Persons Needed: 2 Gait Assistive Device: FWW Wheelchair Training Does the Pt Use a Wheelchair?: Yes Wheel 50 ft with 2 turns (QC): 5 Wheel 150 ft (QC): 88 Type of Wheelchair: Manual Stair Training 1 Step (curb) (QC): 88 4 Steps (QC): 9 12 Steps (QC): 9 Balance Picking up an Object (QC): 88 ADL-Treatment Eating (QC): 6 (Pt able to open crackers and eat without difficulty. Pt brought cup to her mouth and took a drink of water.) Oral Hygiene (QC): 3 (Pt required assistance rinsing dentures, pt able to place in her mouth and place back in the container but does not want to use fixodent to keep them in.) Bathing Location: L Arm, R Arm, L Upper Leg, R Upper Leg, Chest, Abdomen, Perineal Area Shower/Bathe Self (QC): 3 (Mod A, Pt able to wash upper body with cues for sequencing. Pt stood at FWW as OT washed buttocks.) Upper Body Dressing (QC): 5 Lower Body Dressing (QC): 2 (Max A for task, OT educated pt on using dressing stick vs freight air brake fitter to don/doff brief. Pt required cues for sequencing of task and to maintain precautions.) On/Off Footwear (QC): 2 (Assist to don/doff tedhose. Pt able to use dressing stick to doff socks, and sock aide to don socks. Pt requried max verbal/tactile cues for sequencing of task and to maintain precautions.) Toileting Hygiene (QC): 2 (Pt stood at FWW, managed pants down. Pt then stated she needed to use the bed caldera that she was having a BM. OT placed bedpan, then assisted pt with doffing soiled brief the rest of the way, and with managing clean briefs on.) Assessment/Plan Assessment and Plan Assess & Plan/Chief Complaint Assessment per Cardiology assessment with my modifications: Labile hypertension and episodes of orthostatic hypotension (demonstrated during this hospitalization). Diltiazem d/c'd during this hospitalization Syncopal episode of undetermined etiology Jul 02, 2020, likely due to postural hypotension. No significant arrhythmia seen on ILR on 07/02/20 S/P L hip fracture repair per Dr. Woodward on Jul 02, 2020 following a syncopal fall S/P ILR on 03/24/20 (after syncope in March 2020) that has shown PAF w RVR w/o significant bradycardia so far Paroxysmal atrial flutter, first documented on tele strips on 02/11/18 Probable TIA on 02/11/18, resulting in transient R foot numbness/weakness leading to fall and fracture of the R 5th metatarsal, managed by her pcp Lena for stroke prophylaxis MPI of March 20, 2018 showed no evidence of ischemia or infarction. LVEF 80% Echocardiogram of February 12, 2018 showed LVEF 65-70%. Mild aortic regurg. Mod TR. PASP 35 mmHg. Trivial MR. Carotid u/s of 03/19/20 showed minimal bilat carotid plaque TSH normal (0.73) on lab work of 02/12/18 Plan: Because of demonstration of orthostatic hypotension, we have stopped long-acting dilt and are using dig for vent rate control during episodes of AF Continue OAC with Eliquis for stroke prophylaxis Monitor labs from time to time IRF protocol Pain control BM regimen 07/08/20: Monitor incontinence Monitor sleepiness Monitor sodium level 07/09/20: Monitor blood pressure Appreciate cardiology Orthostatic hypotension likely will require wheelchair permanently due to fall risk 07/10/20: Maintain iron infusion Maintain midline Bowel regimen Consult gynecology for pessary (1) Closed left hip fracture Status: Acute (2) Fall Status: Acute (3) Syncope Status: Acute (4) Orthostatic hypotension (5) GERD (gastroesophageal reflux disease) Status: Chronic (6) Anxiety Status: Chronic (7) Atrial fibrillation with controlled ventricular rate JOVANI CAVAZOS DO Jul 10, 2020 09:54
[2020-07-10] MEDS: PANTOPRAZOLE 20 MG TABLET (PROTONIX) PO SCH (10:24)
[2020-07-10] MEDS: FLUDROCORTISONE 0.1 MG (FLORINEF) TAB PO SCH (10:24)
[2020-07-10] MEDS: APIXABAN 5 MG (ELIQUIS) TABLET PO SCH ×2 (10:24→20:50)
[2020-07-10] MEDS: DIGOXIN 0.125 MG (LANOXIN) TAB PO SCH (10:24)
[2020-07-10] MEDS: DOCUSATE SODIUM 100 MG (COLACE) CAP PO SCH ×2 (10:24→20:19)
[2020-07-10] MEDS: polyethylene glycoL POWDER 17 GM (MIRALAX) PACK PO SCH ×2 (10:24→20:19)
[2020-07-10] MEDS: SENNOSIDES 8.6 MG (SENOKOT) TAB PO SCH ×2 (10:25→20:19)
--- NOTE | 2020-07-10 10:26 | Physical Therapy Daily Note ---
PT Daily Note-Current Subjective Pt in bed, agreeable with encouragement. Pt reports she feels she was up "most of the night". Denies pain at rest. Primary c/o with ambulation with feeling dizzy. Mental Status Patient Orientation: Person, Place, Time, Situation Transfers SCALE: Activities may be completed with or without assistive devices. 8-Fslbvafyym-vzgsucb completes the activity by him/herself with no assistance from a helper. 5-Set-up or Clean-up Assistance-helper sets up or cleans up; patient completes activity. [place] assists only prior to or following the activity. 4-Supervision or Touching Assistance-helper provides verbal cues and/or touching/steadying and/or contact guard assistance as patient completes activity. Assistance may be provided throughout the activity or intermittently. 3-Partial/Moderate Assistance-helper does LESS THAN HALF the effort. [place] lifts, holds or supports trunk or limbs, but provides less than half the effort. 2-Substantial/Maximal Assistance-helper does MORE THAN HALF the effort. [place] lifts or holds trunk or limbs and provides more than half the effort. 9-Kpiftuxxk-nduckb does ALL the effort. Patient does none of the effort to complete the activity. Or, the assistance of 2 or more helpers is required for the patient to complete the activity. If activity was not attempted, code reason: 7-Patient Refused. 9-Not Applicable-not attempted and the patient did not perform the activity before the current illness, exacerbation or injury. 10-Not Attempted due to Environmental Limitations-(lack of equipment, weather restraints, etc.). 88-Not Attempted due to Medical Conditions or Safety Concerns. Sit to Lying (QC): 3 Lying to Sitting/Side of Bed(Q: 3 Sit to Stand (QC): 4 Chair/Mxh-st-Dtujl Xfer(QC): 4 VCS for hand placement and safety with transfers. Pt tends to quickly propel her self to standing, uncontrolled at times. Weight Bearing Right Lower Extremity: Right Weight Bearing/Tolerated Left Lower Extremity: Left Weight Bearing/Tolerated Gait Training Does the Patient Walk?: Yes Distance: 12 Walk 10 feet (QC): 4 Walk 50 ft with 2 Turns(QC): 7 Walk 150 ft (QC): 7 Walking 10ft/uneven surface-QC: 88 Gait Persons Needed: 1 Gait Assistive Device: FWW Pt ambulated 12' x 1 with FWW with CGA, occasional VCS for sequencing with [facility] following. Reciprocal gait with decreased stance time on (L) LE. Pt self-limits gait distance due to reports of feeling dizzy. BP 134/69 with gait. Exercises Supine Ex: Ankle pumps, Quad Set, Glut sets, Heel Slides, Short Arc Quads, Hip abd/add Supine Reps: 20 THR protocol exercises (B) Treatments LE functional strengthening/ROM exercises, transfer and gait training with FWW. Returned to bed with all needs met post treatment. Assessment Current Status: Good Progress Pt tolerated well. Self-limits gait distance due to fear of falling and feeling dizzy. Denies hip pain with ambulation. PT Short Term Goals Short Term Goals Time Frame: Jul 25, 2020 Roll Left & Right: 3 Sit to lyin Lying to sitting on side of be: 3 Sit to stand: 3 Chair/rcz-yr-hkomg transfer: 3 Toilet transfer: 3 Car transfer: 3 Walk 10 feet: 3 Walk 50 feet with two turns: 3 Walk 150 feet: 3 Walking 10ft on uneven surface: 3 PT Retirement Goals Director Of Kids Goals PT Retirement Goals Time Frame: Aug 08, 2020 Roll Left & Right (QC): 5 Sit to Lying (QC): 5 Lying-Sitting on Side/Bed(QC): 5 Sit to Stand (QC): 5 Chair/Acu-vm-Zxbke Xfer(QC): 5 Toilet Transfer (QC): 5 Car Transfer (QC): 5 Does the Patient Walk: Yes Walk 10 feet (QC): 5 Walk 50ft with 2 Turns (QC): 5 Walk 150 ft (QC): 5 Walking 10ft on Uneven Surface: 5 1 Step (curb) (QC): 4 4 Steps (QC): 9 12 Steps (QC): 9 Picking up an Object (QC): 5 Wheel 50 feet with 2 turns (QC: 5 (if deemed necessary by therapy team) Type: Manual Wheel 150 feet: 5 Type: Manual PT Plan Problem List Problem List: Activity Tolerance, Functional Strength, Safety, Balance, Gait, Transfer, Bed Mobility, ROM Treatment/Plan Treatment Plan: Continue Plan of Care Treatment Plan: Bed Mobility, Concurrent Therapy, Education, Functional Activity Syl, Functional Strength, Group Therapy, Gait, Safety, Therapeutic Exercise, Transfers Treatment Duration: Aug 08, 2020 Frequency: Modified Program (IRF) (intensity waiver) Estimated Hrs Per Day: 1 hour per day (increase as tolerated) Patient and/or Family Agrees t: Yes Safety Risks/Education Patient Education: Gait Training, Transfer Techniques Teaching Recipient: Patient Teaching Methods: Discussion Response to Teaching: Verbalize Understanding, Return Demonstration, Reinforcement Needed Time/GCodes Time In: 924 Time Out: 1020 Total Billed Treatment Time: 55 Total Billed Treatment 1, Ex x 23', FA x 20', GT x 12' BHARGAV RAWLS DPCristina Jul 10, 2020 10:26
--- NOTE | 2020-07-10 12:47 | Cardiology Progress Note ---
Cardiology SOAP Progress Note Subjective: No cardiac complaints. Objective: I&O/Vital Signs 07/10/20 05:20 Temp 36.9 Pulse 75 Resp 16 B/P (MAP) 147/65 (92) Pulse Ox 94 O2 Delivery Room Air 07/10/20 00:00 Intake Total 1020 ml Balance 1020 ml Weight (Pounds): 129 Weight (Ounces): 8.0 Weight (Calculated Kilograms): 58.450650 Constitutional: AAO x 3, well-developed, well-nourished Respiratory: No accessory muscle use; other (good bilat air entry) Cardiovascular: regular rate-rhythm, S1 and S2, systolic murmur (soft SARAI at card base) Gastrointestional: No tender; soft; No guarding; audible bowel sounds Extremities: No clubbing, No cyanosis, No significant edema Neurologic/Psychiatric: oriented x 3, other (moves all limbs equally) Skin: No rash on exposed areas, No ulcerations on exposed areas A/P: Assessment/Dx: Labile hypertension and episodes of orthostatic hypotension (demonstrated during this hospitalization). Diltiazem d/c'd during this hospitalization Syncopal episode of undetermined etiology Jul 02, 2020, likely due to postural hypotension. No significant arrhythmia seen on ILR on 07/02/20 S/p L hip fracture repair per Dr. Woodward on Jul 02, 2020 following a syncopal fall S/p ILR on 03/24/20 (after syncope in March 2020) that has shown PAF w RVR w/o significant bradycardia so far Paroxysmal atrial flutter, first documented on tele strips on 02/11/18 Probable TIA on 02/11/18, resulting in transient R foot numbness/weakness leading to fall and fracture of the R 5th metatarsal, managed by her pcp Lena for stroke prophylaxis MPI of March 20, 2018 showed no evidence of ischemia or infarction. LVEF 80% Echocardiogram of February 12, 2018 showed LVEF 65-70%. Mild aortic regurg. Mod TR. PASP 35 mmHg. Trivial MR. Carotid u/s of 03/19/20 showed minimal bilat carotid plaque TSH normal (0.73) on lab work of 02/12/18 Plan: * Continue current regimen * Monitor labs from time to time Thank you for your consultation. Please call me if you have any questions. Eliana Knutson MD, FACP, FACC, FSCAI, FHRS, CCDS Interventional Cardiology Cardiac Electrophysiology Vascular Medicine and Endovascular Interventions Arturo KNUTSON MD Jul 10, 2020 12:47
--- NOTE | 2020-07-10 14:12 | Therapy Group Daily Note ---
Therapy Daily Group Note Patient Education Topic Home Safety, Exercises Exercises LE Seated Exercise, UE Exercise Session Ratio (pt:therapist): 4:1 Goal of Session: Home Safety Strategies, UE/LE Strengthing Goal Met for this Session: Yes Pt Benefit of Group: Contributions to Others, F/U Use of Strategies @Home, Increased Functional Safety, Increased Functional Strength, Improved Cognition, Recognition of Peers, Socialization Other/Notes Pt transported via w/c to OT/PT group in [facility]. Group consisted of introductions (name, place living, what activity on Monday), soc ialization, UE/LE seated exercises (peer led), education on home safety and Home Safety Bingo. Pt able to introduce self appropriately then actively listen to peers' introductions. Pt able to complete UE/LE seated exercises appropriately, kept hip precautions with exercises. Pt was able to complete fine/gross motor UE movements without difficulty and visually scan to find matching pictures. Pt demonstrated understanding of educational topic by giving personal experiences and strategies. Pt was able to communicate with peers. After session, pt lying in bed with call light/phone in reach. All needs met in room. Start Time: 12:50 Stop Time: 13:50 Total Billed Treatment Time: 60 Total Billed Treatment 1,GRP TERESA MUNOZ Jul 10, 2020 14:12
[2020-07-10 16:52] VITALS: BP 171/71
[2020-07-10] MEDS: ALPRAZolam 0.25 MG (XANAX) TAB PO SCH (20:50)
[2020-07-11 05:38] VITALS: BP 145/65
--- NOTE | 2020-07-11 07:35 | PM&R Progress Note ---
Subjective HPI/CC On Admission Date Seen by Provider: Jul 11, 2020 Time Seen by Provider: 11:00 Subjective/Events-last exam 07/11/20: Patient doing better today and participated in therapy more Wheelchair bound status likely the end plan No pain IV iron giving her a boost 07/10/20: Midline was placed and it works well IV iron ordered Bowels moved yesterday Consulting Dr. Schmitz for pessary 07/09/20: Pt had a pretty good night She is in chronic AF, heart rate of 70s so rate controlled Dressing changes looked really good Bowels moved yesterday Pt doing pretty well Hgb 9.1 Sleepiness noted Sodium level 130 Bowels moved yesterday Incontinent after brown was discontinued Conferred with RN Checked meds and labs Review of Systems General: Fatigue, Malaise Musculoskeletal: leg pain Objective Exam Vital Signs Vital Signs Date Time Temp Pulse Resp B/P (MAP) Pulse Ox O2 Delivery O2 Flow Rate FiO2 07/11/20 09:55 Room Air 07/11/20 08:23 77 138/65 (89) 07/11/20 05:38 36.6 18 96 Capillary Refill : Less Than 3 SecondsLess Than 3 Seconds General Appearance: No Apparent Distress, WD/WN, Chronically ill, Thin HEENT: PERRL/EOMI, Normal ENT Inspection, Pharynx Normal Neck: Full Range of Motion, Normal Inspection, Non Tender, Supple, Carotid Bruit Respiratory: Chest Non Tender, Lungs Clear, Normal Breath Sounds, No Accessory Muscle Use, No Respiratory Distress Cardiovascular: Regular Rate, Rhythm, No Edema, No Gallop, No JVD, No Murmur, Normal Peripheral Pulses, Irregularly Irregular Gastrointestinal: Normal Bowel Sounds, No Organomegaly, No Pulsatile Mass, Non Tender, Soft Back: Normal Inspection, No CVA Tenderness, No Vertebral Tenderness Extremity: Normal Capillary Refill, Normal Inspection, Normal Range of Motion, Non Tender, No Calf Tenderness, No Pedal Edema Neurologic/Psychiatric: Alert, Oriented x3, No Motor/Sensory Deficits, Normal Mood/Affect, manager infusion II-XII Norm as Tested, Motor Weakness (left leg limited ROM due to pain) Skin: Normal Color, Warm/Dry Lymphatic: No Adenopathy Results/Procedures Lab Patient resulted labs reviewed. FIM Transfers Therapy Code Descriptions/Definitions Functional [place] Measure: 0=Not Assessed/NA 4=Minimal Assistance 1=Total Assistance 5=Supervision or Setup 2=Maximal Assistance 6=Modified [place] 3=Moderate Assistance 7=Complete IndependenceSCALE: Activities may be completed with or without assistive devices. 7-Znalgpvmmf-czducjm completes the activity by him/herself with no assistance from a helper. 5-Set-up or Clean-up Assistance-helper sets up or cleans up; patient completes a ctivity. [place] assists only prior to or following the activity. 4-Supervision or Touching Assistance-helper provides verbal cues and/or touching/steadying and/or contact guard assistance as patient completes activity. Assistance may be provided throughout the activity or intermittently. 3-Partial/Moderate Assistance-helper does LESS THAN HALF the effort. [place] lifts, holds or supports trunk or limbs, but provides less than half the effort. 2-Substantial/Maximal Assistance-helper does MORE THAN HALF the effort. [place] lifts or holds trunk or limbs and provides more than half the effort. 5-Deiwhfwfb-ynaciv does ALL the effort. Patient does none of the effort to complete the activity. Or, the assistance of 2 or more helpers is required for the patient to complete the activity. If activity was not attempted, code reason: 7-Patient Refused. 9-Not Applicable-not attempted and the patient did not perform the activity before the current illness, exacerbation or injury. 10-Not Attempted due to Environmental Limitations-(lack of equipment, weather restraints, etc.). 88-Not Attempted due to Medical Conditions or Safety Concerns. Roll Left to Right (QC): 1 Sit to Lying (QC): 3 Sit to Stand (QC): 4 Chair/Igv-de-Ltmqn Xfer(QC): 4 Car Transfer (QC): 88 (patient having episode of orthostatic hypotension (not safe to perform on this date)) Gait Training Does the Patient Walk?: Yes Distance: 12 Walk 10 feet (QC): 4 Walk 50 ft with 2 Turns(QC): 7 Walk 150 ft (QC): 7 Walking 10ft/uneven surface-QC: 88 Gait Persons Needed: 1 Gait Assistive Device: FWW Wheelchair Training Does the Pt Use a Wheelchair?: Yes Wheel 50 ft with 2 turns (QC): 5 Wheel 150 ft (QC): 88 Type of Wheelchair: Manual Stair Training 1 Step (curb) (QC): 88 4 Steps (QC): 9 12 Steps (QC): 9 Balance Picking up an Object (QC): 88 ADL-Treatment Eating (QC): 6 (Pt able to open crackers and eat without difficulty. Pt brought cup to her mouth and took a drink of water.) Oral Hygiene (QC): 3 (Pt required assistance rinsing dentures, pt able to place in her mouth and place back in the container but does not want to use fixodent to keep them in.) Bathing Location: L Arm, R Arm, L Upper Leg, R Upper Leg, Chest, Abdomen, Perineal Area Shower/Bathe Self (QC): 3 (Mod A, Pt able to wash upper body with cues for sequencing. Pt stood at FWW as OT washed buttocks.) Upper Body Dressing (QC): 5 Lower Body Dressing (QC): 2 (Max A for task, OT educated pt on using dressing stick vs fork repairer to don/doff brief. Pt required cues for sequencing of task and to maintain precautions.) On/Off Footwear (QC): 2 (Assist to don/doff tedhose. Pt able to use dressing stick to doff socks, and sock aide to don socks. Pt requried max verbal/tactile cues for sequencing of task and to maintain precautions.) Toileting Hygiene (QC): 2 (Pt stood at FWW, managed pants down. Pt then stated she needed to use the bed caldera that she was having a BM. OT placed bedpan, then assisted pt with doffing soiled brief the rest of the way, and with managing clean briefs on.) Assessment/Plan Assessment and Plan Assess & Plan/Chief Complaint Assessment per Cardiology assessment with my modifications: Labile hypertension and episodes of orthostatic hypotension (demonstrated during this hospitalization). Diltiazem d/c'd during this hospitalization Syncopal episode of undetermined etiology Jul 02, 2020, likely due to postural hypotension. No significant arrhythmia seen on ILR on 07/02/20 S/P L hip fracture repair per Dr. Woodward on Jul 02, 2020 following a syncopal fall S/P ILR on 03/24/20 (after syncope in March 2020) that has shown PAF w RVR w/o significant bradycardia so far Paroxysmal atrial flutter, first documented on tele strips on 02/11/18 Probable TIA on 02/11/18, resulting in transient R foot numbness/weakness leading to fall and fracture of the R 5th metatarsal, managed by her pcp Lena for stroke prophylaxis MPI of March 20, 2018 showed no evidence of ischemia or infarction. LVEF 80% Echocardiogram of February 12, 2018 showed LVEF 65-70%. Mild aortic regurg. Mod TR. PASP 35 mmHg. Trivial MR. Carotid u/s of 03/19/20 showed minimal bilat carotid plaque TSH normal (0.73) on lab work of 02/12/18 Plan: Because of demonstration of orthostatic hypotension, we have stopped long-acting dilt and are using dig for vent rate control during episodes of AF Continue OAC with Eliquis for stroke prophylaxis Monitor labs from time to time IRF protocol Pain control BM regimen 07/08/20: Monitor incontinence Monitor sleepiness Monitor sodium level 07/09/20: Monitor blood pressure Appreciate cardiology Orthostatic hypotension likely will require wheelchair permanently due to fall risk 07/10/20: Maintain iron infusion Maintain midline Bowel regimen Consult gynecology for pessary 07/11/20: Monitor rectal prolapse Monitor BP and orthostasis (1) Closed left hip fracture Status: Acute (2) Fall Status: Acute (3) Syncope Status: Acute (4) Orthostatic hypotension (5) GERD (gastroesophageal reflux disease) Status: Chronic (6) Anxiety Status: Chronic (7) Atrial fibrillation with controlled ventricular rate JOVANI CAVAZOS DO Jul 11, 2020 07:35
[2020-07-11] MEDS: polyethylene glycoL POWDER 17 GM (MIRALAX) PACK PO SCH ×2 (08:18→19:24)
[2020-07-11] MEDS: PANTOPRAZOLE 20 MG TABLET (PROTONIX) PO SCH (08:21)
[2020-07-11] MEDS: oxyCODONE/APAP 5/325MG (PERCOCET 5) TABLET PO PRN ×2 (08:21→16:43)
[2020-07-11] MEDS: DIGOXIN 0.125 MG (LANOXIN) TAB PO SCH (08:21)
[2020-07-11] MEDS: APIXABAN 5 MG (ELIQUIS) TABLET PO SCH ×2 (08:21→21:06)
[2020-07-11] MEDS: FLUDROCORTISONE 0.1 MG (FLORINEF) TAB PO SCH (08:21)
[2020-07-11] MEDS: SENNOSIDES 8.6 MG (SENOKOT) TAB PO SCH ×2 (08:22→19:24)
[2020-07-11] MEDS: DOCUSATE SODIUM 100 MG (COLACE) CAP PO SCH ×2 (08:22→19:23)
[2020-07-11 08:23] VITALS: BP 138/65
--- NOTE | 2020-07-11 09:54 | Occupational Ther Daily Note ---
OT Current Status-Daily Note Subjective Pt. reports that her left LE is sore from her position, and agrees to move in bed. Appearance Pt. in bed. Alert and oriented. Agrees to work with OT. Mental Status/Objective Patient Orientation: Person, Place, Time, Situation ADL-Treatment Therapy Code Descriptions/Definitions Functional [place] Measure: 0=Not Assessed/NA 4=Minimal Assistance 1=Total Assistance 5=Supervision or Setup 2=Maximal Assistance 6=Modified [place] 3=Moderate Assistance 7=Complete IndependenceSCALE: Activities may be completed with or without assistive devices. 6-Yoiqolussf-ukbphtu completes the activity by him/herself with no assistance from a helper. 5-Set-up or Clean-up Assistance-helper sets up or cleans up; patient completes activity. [place] assists only prior to or following the activity. 4-Supervision or Touching Assistance-helper provides verbal cues and/or touching/steadying and/or contact guard assistance as patient completes activity. Assistance may be provided throughout the activity or intermittently. 3-Partial/Moderate Assistance-helper does LESS THAN HALF the effort. [place] lifts, holds or supports trunk or limbs, but provides less than half the effort. 2-Substantial/Maximal Assistance-helper does MORE THAN HALF the effort. [place] lifts or holds trunk or limbs and provides more than half the effort. 8-Cmbuejbqu-ltslro does ALL the effort. Patient does none of the effort to complete the activity. Or, the assistance of 2 or more helpers is required for the patient to complete the activity. If activity was not attempted, code reason: 7-Patient Refused. 9-Not Applicable-not attempted and the patient did not perform the activity before the current illness, exacerbation or injury. 10-Not Attempted due to Environmental Limitations-(lack of equipment, weather restraints, etc.). 88-Not Attempted due to Medical Conditions or Safety Concerns. On/Off Footwear: 2 Pt. agrees to work with OT. Transferred supine-sit with min assist. Pt. is able to slide left LE slightly, but requires assist to move it to EOB. Once EOB, pt. is cued on how to use her right LE, and bilateral UE to scoot herself the rest of the way to the edge, and into sitting position. Pt. does this with SBA. Pt. able to scoot to EOB with SBA. Stood x [address] in [address] and worked on weight shifts side to side. Pt. able to take several steps toward HOB. Transferred back stand-sit, and then sit-supine with min assist. All needs met and pt. reports she is in comfortable position. Education OT Patient Education: Correct positioning, Purpose of tx/functional activities, Reviewed precautions, Rehab process, Transfer techniques Teaching Recipient: Patient Teaching Methods: Demonstration, Discussion Response to Teaching: Verbalize Understanding, Return Demonstration OT Short Term Goals Short Term Goals Time Frame: Jul 21, 2020 Oral hygiene: 5 Toileting hygiene: 3 Shower/bathe self: 3 Upper body dressin Lower body dressin Putting on/taking off footwear: 3 OT Assisted Goals [place] Cleaner Goals Time Frame: Aug 04, 2020 Eating (QC): 6 Oral Hygiene (QC): 6 Toileting Hygiene (QC): 6 Shower/Bathe Self (QC): 6 Upper Body Dressing (QC): 6 Lower Body Dressing (QC): 6 On/Off Footwear (QC): 6 Additional Goals: 1-Demonstrate ADL Tasks, 2-Verbalize Understanding, 3- ImproveStrength/Syl 1=Demonstrate adherence to instructed precautions during ADL tasks. 2=Patient will verbalize/demonstrate understanding of assistive devices/mod ifications for ADL. 3=Patient will improve strength/tolerance for activity to enable patient to perform ADL's. OT Education/Plan Problem List/Assessment Assessment: Decreased Activ Tolerance, Dependent Transfers, Impaired Bed Mobility, Impaired Funct Balance, Impaired I ADL's, Impaired Self-Care Skills Discharge Recommendations Plan/Recommendations: Continue POC Therapy Discharge Recommendati: Home & Family, Post Acute OT Equpiment Recommendations-D/C: Hip Kit Treatment Plan/Plan of Care Treatment,Training & Education: Yes Patient would benefit from OT for education, treatment and training to promote independence in ADL's, mobility, safety and/or upper extremity function for ADL's. Plan of Care: ADL Retraining, Functional Mobility, Group Exercise/Act as Ind, UE Funct Exercise/Act Treatment Duration: Aug 04, 2020 Frequency: Modified Program (IRF) (27/05) Estimated Hrs Per Day: 1.5 hours per day Rehab Potential: Fair Time/GCodes Start Time: 09:30 Stop Time: 09:45 Total Time Billed (hr/min): 15 Billed Treatment Time 1, FA AMARA RAMOS OT Jul 11, 2020 09:54
--- NOTE | 2020-07-11 11:54 | Physical Therapy Daily Note ---
PT Daily Note-Current Subjective Pain 5/10 (L) LE. "I just got back to bed. I just took a few steps and I am not getting up again any time soon." Pt agreeable to ther ex in bed. Pt reports she tries to lift the (L) LE frequently and feel like it is starting to work. "I still can't lift it but it is getting better." Mental Status Patient Orientation: Person, Place, Situation Transfers SCALE: Activities may be completed with or without assistive devices. 0-Gpacqdhsso-lprkbqe completes the activity by him/herself with no assistance from a helper. 5-Set-up or Clean-up Assistance-helper sets up or cleans up; patient completes activity. [place] assists only prior to or following the activity. 4-Supervision or Touching Assistance-helper provides verbal cues and/or touching/steadying and/or contact guard assistance as patient completes activity. Assistance may be provided throughout the activity or intermittently. 3-Partial/Moderate Assistance-helper does LESS THAN HALF the effort. [place] lifts, holds or supports trunk or limbs, but provides less than half the effort. 2-Substantial/Maximal Assistance-helper does MORE THAN HALF the effort. [place] lifts or holds trunk or limbs and provides more than half the effort. 0-Faefnpozx-waaquw does ALL the effort. Patient does none of the effort to complete the activity. Or, the assistance of 2 or more helpers is required for the patient to complete the activity. If activity was not attempted, code reason: 7-Patient Refused. 9-Not Applicable-not attempted and the patient did not perform the activity before the current illness, exacerbation or injury. 10-Not Attempted due to Environmental Limitations-(lack of equipment, weather restraints, etc.). 88-Not Attempted due to Medical Conditions or Safety Concerns. Weight Bearing Right Lower Extremity: Right Weight Bearing/Tolerated Left Lower Extremity: Left Weight Bearing/Tolerated Treatments (B) LE ther ex: AP, QS, heel slide, SAQ, hip abd, SLR x 20 each. AROM (R) LE and AAROM (L) LE. Assessment Current Status: Fair Progress Pt frank well. Good effort and participation with LE strengthening. Pt needs met post therapy, resting comfortably. PT Short Term Goals Short Term Goals Time Frame: Jul 25, 2020 Roll Left & Right: 3 Sit to lyin Lying to sitting on side of be: 3 Sit to stand: 3 Chair/vqa-pn-rcdkn transfer: 3 Toilet transfer: 3 Car transfer: 3 Walk 10 feet: 3 Walk 50 feet with two turns: 3 Walk 150 feet: 3 Walking 10ft on uneven surface: 3 PT Sheep Killer Goals Sheep Killer Goals PT Sheep Killer Goals Time Frame: Aug 08, 2020 Roll Left & Right (QC): 5 Sit to Lying (QC): 5 Lying-Sitting on Side/Bed(QC): 5 Sit to Stand (QC): 5 Chair/Toc-om-Tixlq Xfer(QC): 5 Toilet Transfer (QC): 5 Car Transfer (QC): 5 Does the Patient Walk: Yes Walk 10 feet (QC): 5 Walk 50ft with 2 Turns (QC): 5 Walk 150 ft (QC): 5 Walking 10ft on Uneven Surface: 5 1 Step (curb) (QC): 4 4 Steps (QC): 9 12 Steps (QC): 9 Picking up an Object (QC): 5 Wheel 50 feet with 2 turns (QC: 5 (if deemed necessary by therapy team) Type: Manual Wheel 150 feet: 5 Type: Manual PT Plan Treatment/Plan Treatment Plan: Continue Plan of Care Treatment Plan: Bed Mobility, Concurrent Therapy, Education, Functional Activity Syl, Functional Strength, Group Therapy, Gait, Safety, Therapeutic Exercise, Transfers Treatment Duration: Aug 08, 2020 Frequency: Modified Program (IRF) (intensity waiver) Estimated Hrs Per Day: 1 hour per day (increase as tolerated) Patient and/or Family Agrees t: Yes Time/GCodes Time In: 1000 Time Out: 1030 Total Billed Treatment Time: 30 Total Billed Treatment 1, ther ex 30min RISHABH WARD CPTA Jul 11, 2020 11:54
--- NOTE | 2020-07-11 14:11 | Cardiology Progress Note ---
Cardiology SOAP Progress Note Subjective: no cardiac complaints Objective: I&O/Vital Signs 07/11/20 07/11/20 07/11/20 05:38 08:23 09:55 Temp 36.6 Pulse 75 77 Resp 18 B/P (MAP) 145/65 (91) 138/65 (89) Pulse Ox 96 O2 Delivery Room Air Room Air 07/11/20 00:00 Intake Total 850 ml Balance 850 ml Weight (Pounds): 129 Weight (Ounces): 8.0 Weight (Calculated Kilograms): 58.458271 Constitutional: AAO x 3, well-developed, well-nourished Respiratory: No accessory muscle use; other (good bilat air entry) Cardiovascular: regular rate-rhythm, S1 and S2, systolic murmur (soft SARAI at card base) Gastrointestional: No tender; soft; No guarding; audible bowel sounds Extremities: No clubbing, No cyanosis, No significant edema Neurologic/Psychiatric: oriented x 3, other (moves all limbs equally) Skin: No rash on exposed areas, No ulcerations on exposed areas A/P: Assessment/Dx: Labile hypertension and episodes of orthostatic hypotension (demonstrated during this hospitalization). Diltiazem d/c'd during this hospitalization Syncopal episode of undetermined etiology Jul 02, 2020, likely due to postural hypotension. No significant arrhythmia seen on ILR on 07/02/20 S/p L hip fracture repair per Dr. Woodward on Jul 02, 2020 following a syncopal fall S/p ILR on 03/24/20 (after syncope in March 2020) that has shown PAF w RVR w/o significant bradycardia so far Paroxysmal atrial flutter, first documented on tele strips on 02/11/18 Probable TIA on 02/11/18, resulting in transient R foot numbness/weakness leading to fall and fracture of the R 5th metatarsal, managed by her pcp Lena for stroke prophylaxis MPI of March 20, 2018 showed no evidence of ischemia or infarction. LVEF 80% Echocardiogram of February 12, 2018 showed LVEF 65-70%. Mild aortic regurg. Mod TR. PASP 35 mmHg. Trivial MR. Carotid u/s of 03/19/20 showed minimal bilat carotid plaque TSH normal (0.73) on lab work of 02/12/18 Plan: * Continue current regimen * Monitor labs from time to time Thank you for your consultation. Please call me if you have any questions. Eliana Knutson MD, FACP, FACC, FSCAI, FHRS, CCDS Interventional Cardiology Cardiac Electrophysiology Vascular Medicine and Endovascular Interventions Arturo KNUTSON MD Jul 11, 2020 14:11
[2020-07-11 16:00] VITALS: BP 131/64
[2020-07-11] MEDS: IRON SUCROSE 200 MG/10 ML (VENOFER) VIAL IV SCH (16:36)
[2020-07-11] MEDS: ALPRAZolam 0.25 MG (XANAX) TAB PO SCH (21:06)
[2020-07-11] MEDS: ACETAMINOPHEN 325 MG TABLET PO PRN (21:10)
[2020-07-12 06:00] VITALS: BP 152/69
[2020-07-12] MEDS: DOCUSATE SODIUM 100 MG (COLACE) CAP PO SCH ×2 (08:44→21:46)
[2020-07-12] MEDS: DIGOXIN 0.125 MG (LANOXIN) TAB PO SCH (08:44)
[2020-07-12] MEDS: PANTOPRAZOLE 20 MG TABLET (PROTONIX) PO SCH (08:44)
[2020-07-12] MEDS: oxyCODONE/APAP 5/325MG (PERCOCET 5) TABLET PO PRN ×2 (08:44→21:51)
[2020-07-12] MEDS: APIXABAN 5 MG (ELIQUIS) TABLET PO SCH ×2 (08:44→21:46)
[2020-07-12] MEDS: FLUDROCORTISONE 0.1 MG (FLORINEF) TAB PO SCH (08:44)
[2020-07-12] MEDS: polyethylene glycoL POWDER 17 GM (MIRALAX) PACK PO SCH ×2 (08:45→21:47)
[2020-07-12] MEDS: SENNOSIDES 8.6 MG (SENOKOT) TAB PO SCH ×2 (08:45→21:47)
[2020-07-12 08:46] VITALS: BP 156/71
--- NOTE | 2020-07-12 09:51 | Progress Note ---
Standard Progress Note Progress Notes/Assess & Plan Date Seen by a Provider: Jul 12, 2020 Time Seen by a Provider: 09:49 Progress/Assessment & Plan no complaints Vital Signs Date Time Temp Pulse Resp B/P (MAP) Pulse Ox O2 Delivery O2 Flow Rate FiO2 07/08/20 06:05 36.5 85 20 149/68 (95) 92 Room Air 07/07/20 22:18 Room Air 07/07/20 20:00 Room Air 07/07/20 15:50 Room Air 07/07/20 15:29 36.2 91 16 135/68 98 Room Air 07/07/20 15:28 36.2 91 16 135/68 (90) 98 Room Air I & O 07/08/20 07:00 Intake Total 840 ml Balance 840 ml Laboratory Tests Test 07/08/20 04:35 Range/Units White Blood Count 8.6 4.3-11.0 10^3/uL Red Blood Count 2.71 L 4.35-5.85 10^6/uL Hemoglobin 9.1 L 11.5-16.0 G/DL Hematocrit 27 L 35-52 % Mean Corpuscular Volume 99 80-99 FL Mean Corpuscular Hemoglobin 34 25-34 PG Mean Corpuscular Hemoglobin Concent 34 32-36 G/DL Red Cell Distribution Width 13.1 10.0-14.5 % Platelet Count 294 130-400 10^3/uL Mean Platelet Volume 9.5 7.4-10.4 FL Neutrophils (%) (Auto) 72 42-75 % Lymphocytes (%) (Auto) 15 12-44 % Monocytes (%) (Auto) 12 0-12 % Eosinophils (%) (Auto) 2 0-10 % Basophils (%) (Auto) 0 0-10 % Neutrophils # (Auto) 6.2 1.8-7.8 X 10^3 Lymphocytes # (Auto) 1.3 1.0-4.0 X 10^3 Monocytes # (Auto) 1.0 0.0-1.0 X 10^3 Eosinophils # (Auto) 0.2 0.0-0.3 10^3/uL Basophils # (Auto) 0.0 0.0-0.1 10^3/uL Sodium Level 130 L 135-145 MMOL/L Potassium Level 4.3 3.6-5.0 MMOL/L Chloride Level 94 L 98-107 MMOL/L Carbon Dioxide Level 26 21-32 MMOL/L Anion Gap 10 5-14 MMOL/L Blood Urea Nitrogen 15 7-18 MG/DL Creatinine 0.66 0.60-1.30 MG/DL Estimat Glomerular Filtration Rate > 60 BUN/Creatinine Ratio 23 Glucose Level 111 H 70-105 MG/DL Calcium Level 8.2 L 8.5-10.1 MG/DL Corrected Calcium 8.8 8.5-10.1 MG/DL Total Bilirubin 0.8 0.1-1.0 MG/DL Aspartate Amino Transf (AST/SGOT) 14 5-34 U/L Alanine Aminotransferase (ALT/SGPT) 12 0-55 U/L Alkaline Phosphatase 51 40-136 U/L Total Protein 5.7 L 6.4-8.2 GM/DL Albumin 3.2 3.2-4.5 GM/DL working with PT/OT and standing at bedside reports minimal hip pain s/p L hip bipolar continue mobilizing Final Diagnosis c/o left hip pain at baseline Vital Signs Date Time Temp Pulse Resp B/P (MAP) Pulse Ox O2 Delivery O2 Flow Rate FiO2 07/12/20 09:16 Room Air 07/12/20 08:46 78 156/71 (99) 07/12/20 06:00 37.0 70 18 152/69 (96) 95 Room Air 07/11/20 21:00 Room Air 07/11/20 17:24 Room Air 07/11/20 16:00 36.4 76 16 131/64 (86) 98 Room Air 07/11/20 09:55 Room Air I & O 07/12/20 07:00 Intake Total 900 ml Balance 900 ml L hip incision clean and dry with surrounding echymosis. No pain with IR/ER of hip. no calf tenderness s/p L hip bipolar continue PT/OT SILKE BRAGG MD Jul 12, 2020 09:51
--- NOTE | 2020-07-12 09:57 | PM&R Progress Note ---
Subjective HPI/CC On Admission Date Seen by Provider: Jul 12, 2020 Time Seen by Provider: 11:00 Subjective/Events-last exam 07/12/20: Patient feels pretty good Self limiting is chronic issue No pain reported except hip No falls 07/11/20: Patient doing better today and participated in therapy more Wheelchair bound status likely the end plan No pain IV iron giving her a boost 07/10/20: Midline was placed and it works well IV iron ordered Bowels moved yesterday Consulting Dr. Schmitz for pessary 07/09/20: Pt had a pretty good night She is in chronic AF, heart rate of 70s so rate controlled Dressing changes looked really good Bowels moved yesterday Pt doing pretty well Hgb 9.1 Sleepiness noted Sodium level 130 Bowels moved yesterday Incontinent after brown was discontinued Conferred with RN Checked meds and labs Review of Systems General: Fatigue, Malaise Musculoskeletal: leg pain Objective Exam Vital Signs Vital Signs Date Time Temp Pulse Resp B/P (MAP) Pulse Ox O2 Delivery O2 Flow Rate FiO2 07/12/20 17:08 30.6 78 16 141/62 (88) 96 Room Air Capillary Refill : Less Than 3 SecondsLess Than 3 Seconds General Appearance: No Apparent Distress, WD/WN, Chronically ill, Thin HEENT: PERRL/EOMI, Normal ENT Inspection, Pharynx Normal Neck: Full Range of Motion, Normal Inspection, Non Tender, Supple, Carotid Bruit Respiratory: Chest Non Tender, Lungs Clear, Normal Breath Sounds, No Accessory Muscle Use, No Respiratory Distress Cardiovascular: Regular Rate, Rhythm, No Edema, No Gallop, No JVD, No Murmur, Normal Peripheral Pulses, Irregularly Irregular Gastrointestinal: Normal Bowel Sounds, No Organomegaly, No Pulsatile Mass, Non Tender, Soft Back: Normal Inspection, No CVA Tenderness, No Vertebral Tenderness Extremity: Normal Capillary Refill, Normal Inspection, Normal Range of Motion, Non Tender, No Calf Tenderness, No Pedal Edema Neurologic/Psychiatric: Alert, Oriented x3, No Motor/Sensory Deficits, Normal Mood/Affect, lead atg developer II-XII Norm as Tested, Motor Weakness (left leg limited ROM due to pain) Skin: Normal Color, Warm/Dry Lymphatic: No Adenopathy Results/Procedures Lab Patient resulted labs reviewed. FIM Transfers Therapy Code Descriptions/Definitions Functional [place] Measure: 0=Not Assessed/NA 4=Minimal Assistance 1=Total Assistance 5=Supervision or Setup 2=Maximal Assistance 6=Modified [place] 3=Moderate Assistance 7=Complete IndependenceSCALE: Activities may be completed with or without assistive devices. 2-Ebuctxiaha-cikfrri completes the activity by him/herself with no assistance from a helper. 5-Set-up or Clean-up Assistance-helper sets up or cleans up; patient completes activity. [place] assists only prior to or following the activity. 4-Supervision or Touching Assistance-helper provides verbal cues and/or touching/steadying and/or contact guard assistance as patient completes activity. Assistance may be provided throughout the activity or intermittently. 3-Partial/Moderate Assistance-helper does LESS THAN HALF the effort. [place] lifts, holds or supports trunk or limbs, but provides less than half the effort. 2-Substantial/Maximal Assistance-helper does MORE THAN HALF the effort. [place] lifts or holds trunk or limbs and provides more than half the effort. 8-Jtrwdokxo-skodfq does ALL the effort. Patient does none of the effort to complete the activity. Or, the assistance of 2 or more helpers is required for the patient to complete the activity. If activity was not attempted, code reason: 7-Patient Refused. 9-Not Applicable-not attempted and the patient did not perform the activity before the current illness, exacerbation or injury. 10-Not Attempted due to Environmental Limitations-(lack of equipment, weather restraints, etc.). 88-Not Attempted due to Medical Conditions or Safety Concerns. Roll Left to Right (QC): 1 Sit to Lying (QC): 3 Sit to Stand (QC): 4 Chair/Kzm-ru-Sbztk Xfer(QC): 4 Car Transfer (QC): 88 (patient having episode of orthostatic hypotension (not safe to perform on this date)) Gait Training Does the Patient Walk?: Yes Distance: 12 Walk 10 feet (QC): 4 Walk 50 ft with 2 Turns(QC): 7 Walk 150 ft (QC): 7 Walking 10ft/uneven surface-QC: 88 Gait Persons Needed: 1 Gait Assistive Device: FWW Wheelchair Training Does the Pt Use a Wheelchair?: Yes Wheel 50 ft with 2 turns (QC): 5 Wheel 150 ft (QC): 88 Type of Wheelchair: Manual Stair Training 1 Step (curb) (QC): 88 4 Steps (QC): 9 12 Steps (QC): 9 Balance Picking up an Object (QC): 88 ADL-Treatment Eating (QC): 6 (Pt able to open crackers and eat without difficulty. Pt brought cup to her mouth and took a drink of water.) Oral Hygiene (QC): 3 (Pt required assistance rinsing dentures, pt able to place in her mouth and place back in the container but does not want to use fixodent to keep them in.) Bathing Location: L Arm, R Arm, L Upper Leg, R Upper Leg, Chest, Abdomen, Perineal Area Shower/Bathe Self (QC): 3 (Mod A, Pt able to wash upper body with cues for sequencing. Pt stood at FWW as OT washed buttocks.) Upper Body Dressing (QC): 5 Lower Body Dressing (QC): 2 (Max A for task, OT educated pt on using dressing stick vs stave machine tender to don/doff brief. Pt required cues for sequencing of task and to maintain precautions.) On/Off Footwear (QC): 2 Toileting Hygiene (QC): 2 (Pt stood at FWW, managed pants down. Pt then stated she needed to use the bed caldera that she was having a BM. OT placed bedpan, then assisted pt with doffing soiled brief the rest of the way, and with managing cl judi briefs on.) Assessment/Plan Assessment and Plan Assess & Plan/Chief Complaint Assessment per Cardiology assessment with my modifications: Labile hypertension and episodes of orthostatic hypotension (demonstrated during this hospitalization). Diltiazem d/c'd during this hospitalization Syncopal episode of undetermined etiology Jul 02, 2020, likely due to postural hypotension. No significant arrhythmia seen on ILR on 07/02/20 S/P L hip fracture repair per Dr. Woodward on Jul 02, 2020 following a syncopal fall S/P ILR on 03/24/20 (after syncope in March 2020) that has shown PAF w RVR w/o significant bradycardia so far Paroxysmal atrial flutter, first documented on tele strips on 02/11/18 Probable TIA on 02/11/18, resulting in transient R foot numbness/weakness leading to fall and fracture of the R 5th metatarsal, managed by her pcp Lena for stroke prophylaxis MPI of March 20, 2018 showed no evidence of ischemia or infarction. LVEF 80% Echocardiogram of February 12, 2018 showed LVEF 65-70%. Mild aortic regurg. Mod TR. PASP 35 mmHg. Trivial MR. Carotid u/s of 03/19/20 showed minimal bilat carotid plaque TSH normal (0.73) on lab work of 02/12/18 Plan: Because of demonstration of orthostatic hypotension, we have stopped long-acting dilt and are using dig for vent rate control during episodes of AF Continue OAC with Eliquis for stroke prophylaxis Monitor labs from time to time IRF protocol Pain control BM regimen 07/08/20: Monitor incontinence Monitor sleepiness Monitor sodium level 07/09/20: Monitor blood pressure Appreciate cardiology Orthostatic hypotension likely will require wheelchair permanently due to fall risk 07/10/20: Maintain iron infusion Maintain midline Bowel regimen Consult gynecology for pessary 07/11/20: Monitor rectal prolapse Monitor BP and orthostasis 07/12/20: Monitor pain Check labs in am Monitor orthostasis (1) Closed left hip fracture Status: Acute (2) Fall Status: Acute (3) Syncope Status: Acute (4) Orthostatic hypotension (5) GERD (gastroesophageal reflux disease) Status: Chronic (6) Anxiety Status: Chronic (7) Atrial fibrillation with controlled ventricular rate JOVANI CAVAZOS DO Jul 12, 2020 09:57
[2020-07-12] MEDS: CATHETER FLUSH 10 ML SYR IV SCH ×2 (14:10→22:00)
[2020-07-12] MEDS: ACETAMINOPHEN 325 MG TABLET PO PRN (14:25)
--- NOTE | 2020-07-12 16:00 | Cardiology Progress Note ---
Cardiology SOAP Progress Note Subjective: no cardiac complaints. Objective: I&O/Vital Signs 07/12/20 07/12/20 07/12/20 06:00 08:46 09:16 Temp 37.0 Pulse 70 78 Resp 18 B/P (MAP) 152/69 (96) 156/71 (99) Pulse Ox 95 O2 Delivery Room Air Room Air 07/12/20 00:00 Intake Total 500 ml Balance 500 ml Weight (Pounds): 129 Weight (Ounces): 8.0 Weight (Calculated Kilograms): 58.066263 Constitutional: AAO x 3, well-developed, well-nourished Respiratory: No accessory muscle use; other (good bilat air entry) Cardiovascular: regular rate-rhythm, S1 and S2, systolic murmur (soft SARAI at card base) Gastrointestional: No tender; soft; No guarding; audible bowel sounds Extremities: No clubbing, No cyanosis, No significant edema Neurologic/Psychiatric: oriented x 3, other (moves all limbs equally) Skin: No rash on exposed areas, No ulcerations on exposed areas A/P: Assessment/Dx: Labile hypertension and episodes of orthostatic hypotension (demonstrated during this hospitalization). Diltiazem d/c'd during this hospitalization Syncopal episode of undetermined etiology Jul 02, 2020, likely due to postural hypotension. No significant arrhythmia seen on ILR on 07/02/20 S/p L hip fracture repair per Dr. Woodward on Jul 02, 2020 following a syncopal fall S/p ILR on 03/24/20 (after syncope in March 2020) that has shown PAF w RVR w/o significant bradycardia so far Paroxysmal atrial flutter, first documented on tele strips on 02/11/18 Probable TIA on 02/11/18, resulting in transient R foot numbness/weakness leading to fall and fracture of the R 5th metatarsal, managed by her pcp Lena for stroke prophylaxis MPI of March 20, 2018 showed no evidence of ischemia or infarction. LVEF 80% Echocardiogram of February 12, 2018 showed LVEF 65-70%. Mild aortic regurg. Mod TR . PASP 35 mmHg. Trivial MR. Carotid u/s of 03/19/20 showed minimal bilat carotid plaque TSH normal (0.73) on lab work of 02/12/18 Plan: * Continue current regimen * Monitor labs from time to time Thank you for your consultation. Please call me if you have any questions. Eliana Knutson MD, FACP, FACC, FSCAI, FHRS, CCDS Interventional Cardiology Cardiac Electrophysiology Vascular Medicine and Endovascular Interventions Arturo KNUTSON MD Jul 12, 2020 16:00
[2020-07-12 17:08] VITALS: BP 141/62
--- NOTE | 2020-07-12 18:34 | NUR ---
LATE ENTRY FROM 07/11/[address]ELY [address] CAVAZOS TO THE FLOOR. INFORMED OF CRE IN THE URINE AND PATIENT NOT ON ANY ANTIBIOTICS. NO NEW ORDERS REC'D.
[2020-07-12] MEDS: ALPRAZolam 0.25 MG (XANAX) TAB PO SCH (21:47)
[2020-07-13] MEDS: oxyCODONE/APAP 5/325MG (PERCOCET 5) TABLET PO PRN ×3 (03:04→21:21)
--- NOTE | 2020-07-13 05:47 | PM&R Progress Note ---
Subjective HPI/CC On Admission Date Seen by Provider: Jul 13, 2020 Time Seen by Provider: 09:00 Subjective/Events-last exam 07/13/20: Pt having a good day Participating in therapy a little bit more today She self limits Wheelchair bound status is likely the result Eating and drinking well Completing iron infusions 07/12/20: Patient feels pretty good Self limiting is chronic issue No pain reported except hip No falls 07/11/20: Patient doing better today and participated in therapy more Wheelchair bound status likely the end plan No pain IV iron giving her a boost 07/10/20: Midline was placed and it works well IV iron ordered Bowels moved yesterday Consulting Dr. Schmitz for pessary 07/09/20: Pt had a pretty good night She is in chronic AF, heart rate of 70s so rate controlled Dressing changes looked really good Bowels moved yesterday Pt doing pretty well Hgb 9.1 Sleepiness noted Sodium level 130 Bowels moved yesterday Incontinent after brown was discontinued Conferred with RN Checked meds and labs Review of Systems General: Fatigue, Malaise Neurological: Weakness Objective Exam Vital Signs Vital Signs Date Time Temp Pulse Resp B/P (MAP) Pulse Ox O2 Delivery O2 Flow Rate FiO2 07/13/20 16:01 36.4 73 16 141/64 (89) 98 Room Air Capillary Refill : Less Than 3 SecondsLess Than 3 Seconds General Appearance: No Apparent Distress, WD/WN, Chronically ill, Thin HEENT: PERRL/EOMI, Normal ENT Inspection, Pharynx Normal Neck: Full Range of Motion, Normal Inspection, Non Tender, Supple, Carotid Bruit Respiratory: Chest Non Tender, Lungs Clear, Normal Breath Sounds, No Accessory Muscle Use, No Respiratory Distress Cardiovascular: Regular Rate, Rhythm, No Edema, No Gallop, No JVD, No Murmur, Normal Peripheral Pulses, Irregularly Irregular Gastrointestinal: Normal Bowel Sounds, No Organomegaly, No Pulsatile Mass, Non Tender, Soft Back: Normal Inspection, No CVA Tenderness, No Vertebral Tenderness Extremity: Normal Capillary Refill, Normal Inspection, Normal Range of Motion, Non Tender, No Calf Tenderness, No Pedal Edema Neurologic/Psychiatric: Alert, Oriented x3, No Motor/Sensory Deficits, Normal Mood/Affect, drug worker II-XII Norm as Tested, Motor Weakness (left leg limited ROM due to pain) Skin: Normal Color, Warm/Dry Lymphatic: No Adenopathy Results/Procedures Lab Laboratory Tests 07/13/20 05:50 Patient resulted labs reviewed. FIM Transfers Therapy Code Descriptions/Definitions Functional [place] Measure: 0=Not Assessed/NA 4=Minimal Assistance 1=Total Assistance 5=Supervision or Setup 2=Maximal Assistance 6=Modified [place] 3=Moderate Assistance 7=Complete IndependenceSCALE: Activities may be completed with or without assistive devices. 8-Vjjlklnhes-hixbkge completes the activity by him/herself with no assistance from a helper. 5-Set-up or Clean-up Assistance-helper sets up or cleans up; patient completes activity. [place] assists only prior to or following the activity. 4-Supervision or Touching Assistance-helper provides verbal cues and/or touching/steadying and/or contact guard assistance as patient completes activity. Assistance may be provided throughout the activity or intermittently. 3-Partial/Moderate Assistance-helper does LESS THAN HALF the effort. [place] lifts, holds or supports trunk or limbs, but provides less than half the effort. 2-Substantial/Maximal Assistance-helper does MORE THAN HALF the effort. [place] lifts or holds trunk or limbs and provides more than half the effort. 1-Bznvqdlik-qremam does ALL the effort. Patient does none of the effort to complete the activity. Or, the assistance of 2 or more helpers is required for the patient to complete the activity. If activity was not attempted, code reason: 7-Patient Refused. 9-Not Applicable-not attempted and the patient did not perform the activity before the current illness, exacerbation or injury. 10-Not Attempted due to Environmental Limitations-(lack of equipment, weather restraints, etc.). 88-Not Attempted due to Medical Conditions or Safety Concerns. Roll Left to Right (QC): 1 Sit to Lying (QC): 3 Sit to Stand (QC): 4 Chair/Gdm-hk-Mzthp Xfer(QC): 4 Car Transfer (QC): 88 (patient having episode of orthostatic hypotension (not safe to perform on this date)) Gait Training Does the Patient Walk?: Yes Distance: 12 Walk 10 feet (QC): 4 Walk 50 ft with 2 Turns(QC): 7 Walk 150 ft (QC): 7 Walking 10ft/uneven surface-QC: 88 Gait Persons Needed: 1 Gait Assistive Device: FWW Wheelchair Training Does the Pt Use a Wheelchair?: Yes Wheel 50 ft with 2 turns (QC): 5 Wheel 150 ft (QC): 88 Type of Wheelchair: Manual Stair Training 1 Step (curb) (QC): 88 4 Steps (QC): 9 12 Steps (QC): 9 Balance Picking up an Object (QC): 88 ADL-Treatment Eating (QC): 6 (Pt able to open crackers and eat without difficulty. Pt brought cup to her mouth and took a drink of water.) Oral Hygiene (QC): 3 (Pt required assistance rinsing dentures, pt able to place in her mouth and place back in the container but does not want to use fixodent to keep them in.) Bathing Location: L Arm, R Arm, L Upper Leg, R Upper Leg, Chest, Abdomen, Perineal Area Shower/Bathe Self (QC): 3 (Mod A, Pt able to wash upper body with cues for s equencing. Pt stood at FWW as OT washed buttocks.) Upper Body Dressing (QC): 5 Lower Body Dressing (QC): 2 (Max A for task, OT educated pt on using dressing stick vs monument stonecutter to don/doff brief. Pt required cues for sequencing of task and to maintain precautions.) On/Off Footwear (QC): 2 Toileting Hygiene (QC): 2 (Pt stood at FWW, managed pants down. Pt then stated she needed to use the bed caldera that she was having a BM. OT placed bedpan, then assisted pt with doffing soiled brief the rest of the way, and with managing clean briefs on.) Assessment/Plan Assessment and Plan Assess & Plan/Chief Complaint Assessment per Cardiology assessment with my modifications: Labile hypertension and episodes of orthostatic hypotension (demonstrated during this hospitalization). Diltiazem d/c'd during this hospitalization Syncopal episode of undetermined etiology Jul 02, 2020, likely due to postural hypotension. No significant arrhythmia seen on ILR on 07/02/20 S/P L hip fracture repair per Dr. Woodward on Jul 02, 2020 following a syncopal fall S/P ILR on 03/24/20 (after syncope in March 2020) that has shown PAF w RVR w/o significant bradycardia so far Paroxysmal atrial flutter, first documented on tele strips on 4/1/18 Probable TIA on 02/11/18, resulting in transient R foot numbness/weakness leading to fall and fracture of the R 5th metatarsal, managed by her pcp Lena for stroke prophylaxis MPI of March 20, 2018 showed no evidence of ischemia or infarction. LVEF 80% Echocardiogram of February 12, 2018 showed LVEF 65-70%. Mild aortic regurg. Mod TR. PASP 35 mmHg. Trivial MR. Carotid u/s of 03/19/20 showed minimal bilat carotid plaque TSH normal (0.73) on lab work of 02/12/18 Plan: Because of demonstration of orthostatic hypotension, we have stopped long-acting dilt and are using dig for vent rate control during episodes of AF Continue OAC with Eliquis for stroke prophylaxis Monitor labs from time to time IRF protocol Pain control BM regimen 07/08/20: Monitor incontinence Monitor sleepiness Monitor sodium level 07/09/20: Monitor blood pressure Appreciate cardiology Orthostatic hypotension likely will require wheelchair permanently due to fall risk 07/10/20: Maintain iron infusion Maintain midline Bowel regimen Consult gynecology for pessary 07/11/20: Monitor rectal prolapse Monitor BP and orthostasis 07/12/20: Monitor pain Check labs in am Monitor orthostasis 07/13/20: Complete iron infusion Dressing change per ortho Continue to motivate patient to participate (1) Closed left hip fracture Status: Acute (2) Fall Status: Acute (3) Syncope Status: Acute (4) Orthostatic hypotension (5) GERD (gastroesophageal reflux disease) Status: Chronic (6) Anxiety Status: Chronic (7) Atrial fibrillation with controlled ventricular rate JOVANI CAVAZOS DO Jul 13, 2020 05:47
[2020-07-13 06:00] VITALS: BP 157/68
[2020-07-13] MEDS: CATHETER FLUSH 10 ML SYR IV SCH ×3 (06:00→21:22)
[2020-07-13 06:02] LABS: BASOPHILS % (AUTO) 0 % (0-10); EOSINOPHILS # (AUTO) 0.2 10^3/uL (0.0-0.3); EOSINOPHILS % (AUTO) 2 % (0-10); HEMATOCRIT 26 % (35-52); HEMOGLOBIN 8.5 G/DL (11.5-16.0); LYMPHOCYTES # (AUTO) 1.4 X 10^3 (1.0-4.0); LYMPHOCYTES % (AUTO) 19 % (12-44); MEAN CORPUSCULAR HEMOGLOBIN 33 PG (25-34); MEAN CORPUSCULAR HGB CONC 33 G/DL (32-36); MEAN CORPUSCULAR VOLUME 101 FL (80-99); MEAN PLATELET VOLUME 8.3 FL (7.4-10.4); MONOCYTES # (AUTO) 0.9 X 10^3 (0.0-1.0); MONOCYTES % (AUTO) 12 % (0-12); NEUTROPHILS # (AUTO) 5.1 X 10^3 (1.8-7.8); NEUTROPHILS % (AUTO) 67 % (42-75); PLATELET COUNT 433 10^3/uL (130-400); WHITE BLOOD COUNT 7.6 10^3/uL (4.3-11.0)
[2020-07-13 06:10] LABS: ALBUMIN 3.1 GM/DL (3.2-4.5); CHLORIDE 102 MMOL/L (98-107); POTASSIUM 3.7 MMOL/L (3.6-5.0); SODIUM 135 MMOL/L (135-145)
[2020-07-13 06:12] LABS: CALCIUM 8.2 MG/DL (8.5-10.1)
[2020-07-13 06:13] LABS: GLUCOSE 107 MG/DL (70-105); TOTAL PROTEIN 5.2 GM/DL (6.4-8.2)
[2020-07-13 06:14] LABS: BILIRUBIN,TOTAL 0.5 MG/DL (0.1-1.0); CARBON DIOXIDE 25 MMOL/L (21-32)
[2020-07-13 06:16] LABS: ALKALINE PHOSPHATASE 57 U/L (40-136); CREATININE SERUM 0.57 MG/DL (0.60-1.30); GFR ESTIMATED > 60
[2020-07-13 06:17] LABS: BUN/CREATININE RATIO 18
[2020-07-13 06:19] LABS: ALANINE AMINOTRANSFERASE 8 U/L (0-55)
[2020-07-13] MEDS: DOCUSATE SODIUM 100 MG (COLACE) CAP PO SCH ×2 (08:26→21:15)
[2020-07-13] MEDS: APIXABAN 5 MG (ELIQUIS) TABLET PO SCH ×2 (08:26→21:12)
[2020-07-13] MEDS: SENNOSIDES 8.6 MG (SENOKOT) TAB PO SCH ×2 (08:26→21:15)
[2020-07-13] MEDS: FLUDROCORTISONE 0.1 MG (FLORINEF) TAB PO SCH (08:26)
[2020-07-13] MEDS: DIGOXIN 0.125 MG (LANOXIN) TAB PO SCH (08:26)
[2020-07-13] MEDS: PANTOPRAZOLE 20 MG TABLET (PROTONIX) PO SCH (08:26)
[2020-07-13] MEDS: polyethylene glycoL POWDER 17 GM (MIRALAX) PACK PO SCH ×2 (08:27→21:12)
--- NOTE | 2020-07-13 09:34 | Physical Therapy Daily Note ---
PT Daily Note-Current Subjective Pt in bed, requesting bed caldera before working with therapy. Encouraged Pt to walk to BR. Initially Pt resistive, "I don't think I can walk that far". Pt agreeable when reassured that she walked at least that distance on Monday with this therapist. Pain Numeric Pain Scale: 0-No Pain Location: No Pain Reported Mental Status Patient Orientation: Person, Place, Time, Situation Transfers SCALE: Activities may be completed with or without assistive devices. 5-Szuccfzewk-iyegybn completes the activity by him/herself with no assistance from a helper. 5-Set-up or Clean-up Assistance-helper sets up or cleans up; patient completes activity. [place] assists only prior to or following the activity. 4-Supervision or Touching Assistance-helper provides verbal cues and/or touching/steadying and/or contact guard assistance as patient completes activity. Assistance may be provided throughout the activity or intermittently. 3-Partial/Moderate Assistance-helper does LESS THAN HALF the effort. [place] lifts, holds or supports trunk or limbs, but provides less than half the effort. 2-Substantial/Maximal Assistance-helper does MORE THAN HALF the effort. [place] lifts or holds trunk or limbs and provides more than half the effort. 6-Dkirpunha-qccdop does ALL the effort. Patient does none of the effort to complete the activity. Or, the assistance of 2 or more helpers is required for the patient to complete the activity. If activity was not attempted, code reason: 7-Patient Refused. 9-Not Applicable-not attempted and the patient did not perform the activity before the current illness, exacerbation or injury. 10-Not Attempted due to Environmental Limitations-(lack of equipment, weather restraints, etc.). 88-Not Attempted due to Medical Conditions or Safety Concerns. Lying to Sitting/Side of Bed(Q: 4 Sit to Stand (QC): 4 Chair/Vec-tg-Xnqwv Xfer(QC): 4 Toilet Transfer (QC): 2 (Assist to don/doff brief and for maria victoria-care) Weight Bearing Right Lower Extremity: Right Weight Bearing/Tolerated Left Lower Extremity: Left Weight Bearing/Tolerated Gait Training Does the Patient Walk?: Yes Distance: 10 Walk 10 feet (QC): 4 Gait Persons Needed: 1 Gait Assistive Device: FWW Pt ambulates with CGA with FWW, reciprocal gait, no dawood LOB. Pt self limits distance due to reporting "dizzy feeling". Wheelchair Training Does the Pt Use a Wheelchair?: Yes Wheel 50 ft with 2 turns (QC): 4 Type of Wheelchair: Manual VCS for turning. Assist to manage leg rests and brakes. Exercises Supine Ex: Ankle pumps, Quad Set, Glut sets, Heel Slides Supine Reps: 10 Treatments Gait training, transfer training, WCH training, LE ex. Up in recliner with all needs met, alarm activated. Assessment Current Status: Good Progress Pt tolerated well. Demonstrates good functional gait with FWW but self limits due to feeling dizzy. PT Short Term Goals Short Term Goals Time Frame: Jul 25, 2020 Roll Left & Right: 3 Sit to lyin Lying to sitting on side of be: 3 Sit to stand: 3 Chair/zcp-ma[place] transfer: 3 Toilet transfer: 3 Car transfer: 3 Walk 10 feet: 3 Walk 50 feet with two turns: 3 Walk 150 feet: 3 Walking 10ft on uneven surface: 3 PT Crochet Machine Operator Goals Senior Care Goals PT Crochet Machine Operator Goals Time Frame: Aug 08, 2020 Roll Left & Right (QC): 5 Sit to Lying (QC): 5 Lying-Sitting on Side/Bed(QC): 5 Sit to Stand (QC): 5 Chair/Pvj-ta-Vygrz Xfer(QC): 5 Toilet Transfer (QC): 5 Car Transfer (QC): 5 Does the Patient Walk: Yes Walk 10 feet (QC): 5 Walk 50ft with 2 Turns (QC): 5 Walk 150 ft (QC): 5 Walking 10ft on Uneven Surface: 5 1 Step (curb) (QC): 4 4 Steps (QC): 9 12 Steps (QC): 9 Picking up an Object (QC): 5 Wheel 50 feet with 2 turns (QC: 5 (if deemed necessary by therapy team) Type: Manual Wheel 150 feet: 5 Type: Manual PT Plan Problem List Problem List: Activity Tolerance, Functional Strength, Safety, Balance, Gait, Transfer, Bed Mobility, ROM Treatment/Plan Treatment Plan: Continue Plan of Care Treatment Plan: Bed Mobility, Concurrent Therapy, Education, Functional Activity Syl, Functional Strength, Group Therapy, Gait, Safety, Therapeutic Exercise, Transfers Treatment Duration: Aug 08, 2020 Frequency: Modified Program (IRF) (intensity waiver) Estimated Hrs Per Day: 1 hour per day (increase as tolerated) Patient and/or Family Agrees t: Yes Safety Risks/Education Patient Education: Gait Training, Transfer Techniques, Reviewed Precautions Teaching Recipient: Patient Teaching Methods: Demonstration, Discussion Response to Teaching: Verbalize Understanding, Reinforcement Needed Time/GCodes Time In: 829 Time Out: 934 Total Billed Treatment Time: 65 Total Billed Treatment 1, GT x 15', FA x 15', WCH x 20', EX x 15' BHARGAV RAWLS DPT Jul 13, 2020 09:34
--- NOTE | 2020-07-13 10:30 | NUR ---
PT HAS SMALL EMESIS WHILE WORKING WITH THERAPY. ORAL CARES GIVEN. 1 TAB ZOFRAN ADMINISTERED SUBLINGUALLY. B/P 146/70, HR 70, R18, TEMP 36.6*, 96% O2 SAT. VOICES "I DIDN'T EAT VERY MUCH FOR BREAKFAST, MAYBE THAT MADE ME SICK TO MY STOMACH." REQUESTS TOMATO SOUP FOR LUNCH. WILL CON'T TO MONITOR. Addendum: 07/13/20 at 1508 by FISH MONTALVO RN @12PM, PT HAS ANOTHER SMALL EMESIS. "FEEL A LITTLE BETTER" EATS SMALL SIPS OF TOMATO SOUP AND PEARS. 1 CAN SPRITE GIVEN, CONSUMES 1/2. CONSUMES 4 SALTINES. PT BACK TO BED AFTER THERAPY@ 1330, RESTS.
--- NOTE | 2020-07-13 11:12 | Occupational Ther Daily Note ---
OT Current Status-Daily Note Subjective Pt seated in recliner, agreeable to OT Tx. Pt nauseous part way through session, with slight vomiting. OT notified pt's nurse. ADL-Treatment Therapy Code Descriptions/Definitions Functional [place] Measure: 0=Not Assessed/NA 4=Minimal Assistance 1=Total Assistance 5=Supervision or Setup 2=Maximal Assistance 6=Modified [place] 3=Moderate Assistance 7=Complete IndependenceSCALE: Activities may be completed with or without assistive devices. 2-Cbndfukutg-xeykvhv completes the activity by him/herself with no assistance from a helper. 5-Set-up or Clean-up Assistance-helper sets up or cleans up; patient completes activity. [place] assists only prior to or following the activity. 4-Supervision or Touching Assistance-helper provides verbal cues and/or touching/steadying and/or contact guard assistance as patient completes activity. Assistance may be provided throughout the activity or intermittently. 3-Partial/Moderate Assistance-helper does LESS THAN HALF the effort. [place] lifts, holds or supports trunk or limbs, but provides less than half the effort. 2-Substantial/Maximal Assistance-helper does MORE THAN HALF the effort. [place] lifts or holds trunk or limbs and provides more than half the effort. 6-Bswvwosbl-ciqvkf does ALL the effort. Patient does none of the effort to complete the activity. Or, the assistance of 2 or more helpers is required for the patient to complete the activity. If activity was not attempted, code reason: 7-Patient Refused. 9-Not Applicable-not attempted and the patient did not perform the activity before the current illness, exacerbation or injury. 10-Not Attempted due to Environmental Limitations-(lack of equipment, weather restraints, etc.). 88-Not Attempted due to Medical Conditions or Safety Concerns. Lower Body Dressing (QC): 4 (Mod verbal cues/demonstration of using AE to doff/don briefs. CGA during stand) Toileting Hygiene (QC): 4 (CGA during stand at FWW, pt able to manage pants up/down and perform pericare.) Other Treatment Pt seated in recliner, agreed to OT tx with focus on ADLs. OT placed shower cap on pt's head, pt then able to use her hands to scrub her hair, dry her hair, then comb her hair with set up. Pt then reports being nauseous, OT provided pt with basin, pt has slight vomiting, OT notified pt's nurse who provides nausea med. Pt states she feels better. OT then provided pt with warm wet wipes, pt completed partial sponge bath, washing periarea and buttocks, and chest/abdomen. Pt reports slight tenderness under left breast, OT noticed slight pink/redness, applied barrier cream and notified nurse. Pt then changed her brief with verbal cues for using a sociology faculty member and donned a clean hospital gown. Post OT tx, pt seated in recliner, call light in reach, all needs met and chair alarm on. Education OT Patient Education: Correct positioning, Modified ADL techniques, Progress toward Goal/Update tx plan, Purpose of tx/functional activities, Safety issues, Transfer techniques, Use of adapted equipment Teaching Recipient: Patient Teaching Methods: Demonstration, Discussion Response to Teaching: Verbalize Understanding, Return Demonstration OT Short Term Goals Short Term Goals Time Frame: Jul 21, 2020 Oral hygiene: 5 Toileting hygiene: 3 Shower/bathe self: 3 Upper body dressin Lower body dressin Putting on/taking off footwear: 3 OT Longterm Goals Longterm Goals Time Frame: Aug 04, 2020 Eating (QC): 6 Oral Hygiene (QC): 6 Toileting Hygiene (QC): 6 Shower/Bathe Self (QC): 6 Upper Body Dressing (QC): 6 Lower Body Dressing (QC): 6 On/Off Footwear (QC): 6 Additional Goals: 1-Demonstrate ADL Tasks, 2-Verbalize Understanding, 3- ImproveStrength/Syl 1=Demonstrate adherence to instructed precautions during ADL tasks. 2=Patient will verbalize/demonstrate understanding of assistive devices/modifications for ADL. 3=Patient will improve strength/tolerance for activity to enable patient to perform ADL's. OT Education/Plan Problem List/Assessment Assessment: Decreased Activ Tolerance, Decreased UE Strength, Impaired Funct Balance, Impaired I ADL's, Impaired Self-Care Skills Discharge Recommendations Plan/Recommendations: Continue POC Treatment Plan/Plan of Care Patient would benefit from OT for education, treatment and training to promote independence in ADL's, mobility, safety and/or upper extremity function for ADL's. Plan of Care: ADL Retraining, Functional Mobility, Group Exercise/Act as Ind, UE Funct Exercise/Act Treatment Duration: Aug 04, 2020 Frequency: Modified Program (IRF) (27/05) Estimated Hrs Per Day: 1.5 hours per day Rehab Potential: Fair Time/GCodes Start Time: 10:00 Stop Time: 11:00 Total Time Billed (hr/min): 60 Billed Treatment Time 1, ADL 4 FRITZ MUIR OT Jul 13, 2020 11:12
--- NOTE | 2020-07-13 13:46 | Occupational Ther Daily Note ---
OT Current Status-Daily Note Subjective Pt seated in recliner, agreeable to OT tx. Pt reports being nauseous again over lunch. Mental Status/Objective Patient Orientation: Person, Normal For Age ADL-Treatment Therapy Code Descriptions/Definitions Functional [place] Measure: 0=Not Assessed/NA 4=Minimal Assistance 1=Total Assistance 5=Supervision or Setup 2=Maximal Assistance 6=Modified [place] 3=Moderate Assistance 7=Complete IndependenceSCALE: Activities may be completed with or without assistive devices. 3-Mxyryijjvz-zdmtqhe completes the activity by him/herself with no assistance from a helper. 5-Set-up or Clean-up Assistance-helper sets up or cleans up; patient completes activity. [place] assists only prior to or following the activity. 4-Supervision or Touching Assistance-helper provides verbal cues and/or touching /steadying and/or contact guard assistance as patient completes activity. Assistance may be provided throughout the activity or intermittently. 3-Partial/Moderate Assistance-helper does LESS THAN HALF the effort. [place] lifts, holds or supports trunk or limbs, but provides less than half the effort. 2-Substantial/Maximal Assistance-helper does MORE THAN HALF the effort. [place] lifts or holds trunk or limbs and provides more than half the effort. 6-Ktzcvpwxq-tcbkda does ALL the effort. Patient does none of the effort to complete the activity. Or, the assistance of 2 or more helpers is required for the patient to complete the activity. If activity was not attempted, code reason: 7-Patient Refused. 9-Not Applicable-not attempted and the patient did not perform the activity before the current illness, exacerbation or injury. 10-Not Attempted due to Environmental Limitations-(lack of equipment, weather restraints, etc.). 88-Not Attempted due to Medical Conditions or Safety Concerns. Eating (QC): 6 (Pt able to open crackers and take a small bite, and able to bring sprite to her mouth and take a sip.) On/Off Footwear: 3 (Pt doffed socks with carpet sewing machine operator, mod verbal cues for task. Pt then donned socks with sock aide, min A with LLE.) Other Treatment Pt seated in recliner, agreeable to OT. Pt reports she was nauseous over lunch and is tired. Pt able to take a small bite of a cracker and sip on sprite, she did not eat anything over lunch due to nausea, nurse aware. Pt agreed to completing footwear at this time. OT provided pt with carpet sewing machine operator, she was able to push off both socks with mod verbal cues. OT then provided pt with sock aide, she asked "what am I supposed to do with this?" OT told pt she would like her to put her socks on. Pt then remembered what sock aide was used for, donning sock onto aide, then onto right foot. Pt put another sock on sock aide and onto left foot, requiring min A due to sock getting stuck on her small toe. Pt required assistance for hand placement on sock aide strings to adhere to hip precautions. Pt took rest breaks as needed throughout task. Post OT Tx, pt seated in recliner, feet elevated, call light in reach, chair alarm on, and all needs met. Education OT Patient Education: Correct positioning, Modified ADL techniques, Progress toward Goal/Update tx plan, Purpose of tx/functional activities Teaching Recipient: Patient Teaching Methods: Demonstration, Discussion Response to Teaching: Verbalize Understanding, Return Demonstration OT Short Term Goals Short Term Goals Time Frame: Jul 21, 2020 Oral hygiene: 5 Toileting hygiene: 3 Shower/bathe self: 3 Upper body dressin Lower body dressin Putting on/taking off footwear: 3 OT Production Consultant Goals Production Consultant Goals Time Frame: Aug 04, 2020 Eating (QC): 6 Oral Hygiene (QC): 6 Toileting Hygiene (QC): 6 Shower/Bathe Self (QC): 6 Upper Body Dressing (QC): 6 Lower Body Dressing (QC): 6 On/Off Footwear (QC): 6 Additional Goals: 1-Demonstrate ADL Tasks, 2-Verbalize Understanding, 3-ImproveStrength/Syl 1=Demonstrate adherence to instructed precautions during ADL tasks. 2=Patient will verbalize/demonstrate understanding of assistive devices/modifications for ADL. 3=Patient will improve strength/tolerance for activity to enable patient to perform ADL's. OT Education/Plan Problem List/Assessment Assessment: Decreased Activ Tolerance, Decreased UE Strength, Impaired Funct Balance, Impaired I ADL's, Impaired Self-Care Skills Discharge Recommendations Plan/Recommendations: Continue POC Treatment Plan/Plan of Care Patient would benefit from OT for education, treatment and training to promote independence in ADL's, mobility, safety and/or upper extremity function for ADL's. Plan of Care: ADL Retraining, Functional Mobility, Group Exercise/Act as Ind, UE Funct Exercise/Act Treatment Duration: Aug 04, 2020 Frequency: Modified Program (IRF) (27/05) Estimated Hrs Per Day: 1.5 hours per day Rehab Potential: Fair Time/GCodes Start Time: 13:00 Stop Time: 13:30 Total Time Billed (hr/min): 30 Billed Treatment Time 1, ADL 2 FRITZ MUIR OT Jul 13, 2020 13:46
--- NOTE | 2020-07-13 14:01 | Physical Therapy Daily Note ---
PT Daily Note-Current Subjective Pt reports she has been having some nausea but agrees to PT with encouragement. Requests to return to bed post treatment. Mental Status Patient Orientation: Person, Place, Time, Situation Transfers SCALE: Activities may be completed with or without assistive devices. 1-Mxjjvjnvxr-ngmdbux completes the activity by him/herself with no assistance from a helper. 5-Set-up or Clean-up Assistance-helper sets up or cleans up; patient completes activity. [place] assists only prior to or following the activity. 4-Supervision or Touching Assistance-helper provides verbal cues and/or touching/steadying and/or contact guard assistance as patient completes activity. Assistance may be provided throughout the activity or intermittently. 3-Partial/Moderate Assistance-helper does LESS THAN HALF the effort. [place] lifts, holds or supports trunk or limbs, but provides less than half the effort. 2-Substantial/Maximal Assistance-helper does MORE THAN HALF the effort. [place] lifts or holds trunk or limbs and provides more than half the effort. 1-Dwrzpefyw-nnkpcj does ALL the effort. Patient does none of the effort to complete the activity. Or, the assistance of 2 or more helpers is required for the patient to complete the activity. If activity was not attempted, code reason: 7-Patient Refused. 9-Not Applicable-not attempted and the patient did not perform the activity before the current illness, exacerbation or injury. 10-Not Attempted due to Environmental Limitations-(lack of equipment, weather restraints, etc.). 88-Not Attempted due to Medical Conditions or Safety Concerns. Sit to Lying (QC): 3 (min assist with left leg and skilled cues for sequencing. ) Sit to Stand (QC): 4 (CGA with lift chair elevated nd with cues for sequencing. ) Sit to stand x 3 with FWW with marching in place. Pt stood with sBA as depend was changed and pericare complete. Pt took 7-8 steps to the bed. Pt in bed post treatment with heels elevated and pillow between her knees. Offered bed a larm, as chair alarm had been activated, nurse present and said the bed alarm did not need to be activated. Weight Bearing Right Lower Extremity: Right Weight Bearing/Tolerated Left Lower Extremity: Left Weight Bearing/Tolerated Assessment Current Status: Good Progress Transfers progressing. She does have some difficulty with transition to WB on the left LE. PT Short Term Goals Short Term Goals Time Frame: Jul 25, 2020 Roll Left & Right: 3 Sit to lyin Lying to sitting on side of be: 3 Sit to stand: 3 Chair/abt-ac-etpje transfer: 3 Toilet transfer: 3 Car transfer: 3 Walk 10 feet: 3 Walk 50 feet with two turns: 3 Walk 150 feet: 3 Walking 10ft on uneven surface: 3 PT Wind Turbine Controls Engineer Goals Wind Turbine Controls Engineer Goals PT Wind Turbine Controls Engineer Goals Time Frame: Aug 08, 2020 Roll Left & Right (QC): 5 Sit to Lying (QC): 5 Lying-Sitting on Side/Bed(QC): 5 Sit to Stand (QC): 5 Chair/Zew-dn-Ikpiu Xfer(QC): 5 Toilet Transfer (QC): 5 Car Transfer (QC): 5 Does the Patient Walk: Yes Walk 10 feet (QC): 5 Walk 50ft with 2 Turns (QC): 5 Walk 150 ft (QC): 5 Walking 10ft on Uneven Surface: 5 1 Step (curb) (QC): 4 4 Steps (QC): 9 12 Steps (QC): 9 Picking up an Object (QC): 5 Wheel 50 feet with 2 turns (QC: 5 (if deemed necessary by therapy team) Type: Manual Wheel 150 feet: 5 Type: Manual PT Plan Problem List Problem List: Activity Tolerance, Functional Strength, Safety Treatment/Plan Treatment Plan: Continue Plan of Care Treatment Plan: Bed Mobility, Concurrent Therapy, Education, Functional Activity Syl, Functional Strength, Group Therapy, Gait, Safety, Therapeutic Exercise, Transfers Treatment Duration: Aug 08, 2020 Frequency: Modified Program (IRF) (intensity waiver) Estimated Hrs Per Day: 1 hour per day (increase as tolerated) Patient and/or Family Agrees t: Yes Safety Risks/Education Patient Education: Transfer Techniques Teaching Recipient: Patient Teaching Methods: Demonstration, Discussion Response to Teaching: Reinforcement Needed Time/GCodes Time In: 1330 Time Out: 1400 Total Billed Treatment Time: 30 Total Billed Treatment visit FA 30 TERESA ECKERT PT Jul 13, 2020 14:01
--- NOTE | 2020-07-13 15:21 | Cardiology Progress Note ---
Cardiology SOAP Progress Note Subjective: No cardiac complaints. Objective: I&O/Vital Signs 07/13/20 07/13/20 06:00 09:00 Temp 37.4 Pulse 82 Resp 18 B/P (MAP) 157/68 (97) Pulse Ox 96 O2 Delivery Room Air Room Air 07/13/20 00:00 Intake Total 900 ml Balance 900 ml Weight (Pounds): 129 Weight (Ounces): 8.0 Weight (Calculated Kilograms): 58.102684 Constitutional: AAO x 3, well-developed, well-nourished Respiratory: No accessory muscle use; other (good bilat air entry) Cardiovascular: regular rate-rhythm, S1 and S2, systolic murmur (soft SARAI at card base) Gastrointestional: No tender; soft; No guarding; audible bowel sounds Extremities: No clubbing, No cyanosis, No significant edema Neurologic/Psychiatric: oriented x 3, other (moves all limbs equally) Skin: No rash on exposed areas, No ulcerations on exposed areas Results/Procedures: Labs Laboratory Tests 07/13/20 05:50: White Blood Count 7.6, Red Blood Count 2.58L, Hemoglobin 8.5L, Hematocrit 26L, Mean Corpuscular Volume 101H, Mean Corpuscular Hemoglobin 33, Mean Corpuscular Hemoglobin Concent 33, Red Cell Distribution Width 13.9, Platelet Count 433H, Mean Platelet Volume 8.3, Neutrophils (%) (Auto) 67, Lymphocytes (%) (Auto) 19, Monocytes (%) (Auto) 12, Eosinophils (%) (Auto) 2, Basophils (%) (Auto) 0, Neutrophils # (Auto) 5.1, Lymphocytes # (Auto) 1.4, Monocytes # (Auto) 0.9, Eosinophils # (Auto) 0.2, Basophils # (Auto) 0.0, Sodium Level 135, Potassium Level 3.7, Chloride Level 102, Carbon Dioxide Level 25, Anion Gap 8, Blood Urea Nitrogen 10, Creatinine 0.57L, Estimat Glomerular Filtration Rate > 60, BUN/Creatinine Ratio 18, Glucose Level 107H, Calcium Level 8.2L, Corrected Calci um 8.9, Total Bilirubin 0.5, Aspartate Amino Transf (AST/SGOT) 13, Alanine Aminotransferase (ALT/SGPT) 8, Alkaline Phosphatase 57, Total Protein 5.2L, Albumin 3.1L A/P: Assessment/Dx: Labile hypertension and episodes of orthostatic hypotension (demonstrated during this hospitalization). Diltiazem d/c'd during this hospitalization Syncopal episode of undetermined etiology Jul 02, 2020, likely due to postural hypotension. No significant arrhythmia seen on ILR on 07/02/20 S/p L hip fracture repair per Dr. Woodward on Jul 02, 2020 following a syncopal fall S/p ILR on 03/24/20 (after syncope in March 2020) that has shown PAF w RVR w/o significant bradycardia so far Paroxysmal atrial flutter, first documented on tele strips on 02/11/18 Probable TIA on 02/11/18, resulting in transient R foot numbness/weakness leading to fall and fracture of the R 5th metatarsal, managed by her pcp Lena for stroke prophylaxis MPI of March 20, 2018 showed no evidence of ischemia or infarction. LVEF 80% Echocardiogram of February 12, 2018 showed LVEF 65-70%. Mild aortic regurg. Mod TR. PASP 35 mmHg. Trivial MR. Carotid u/s of 03/19/20 showed minimal bilat carotid plaque TSH normal (0.73) on lab work of 02/12/18 Plan: * Continue current regimen * Monitor labs from time to time Thank you for your consultation. Please call me if you have any questions. Eliana Knutson MD, FACP, FACC, FSCAI, FHRS, CCDS Interventional Cardiology Cardiac Electrophysiology Vascular Medicine and Endovascular Interventions Arturo KNUTSON MD Jul 13, 2020 15:21
[2020-07-13 16:01] VITALS: BP 141/64
[2020-07-13] MEDS: IRON SUCROSE 200 MG/10 ML (VENOFER) VIAL IV SCH (16:57)
--- NOTE | 2020-07-13 19:10 | NUR ---
bedside report received from [facility], assume care of pt
[2020-07-13] MEDS: ALPRAZolam 0.25 MG (XANAX) TAB PO SCH (21:12)
--- NOTE | 2020-07-13 21:21 | NUR ---
pt refused Colace & Senokot but took miralax, states that is what worked this morning, c/o lt hip pain level 7/10 on numeric scale, Percocet 5/325 1 tab given, pt refuses to turn off back states this is how I sleep
--- NOTE | 2020-07-13 22:15 | NUR ---
rates pain level 4/10 on numeric scale
[2020-07-14] MEDS: ACETAMINOPHEN 325 MG TABLET PO PRN ×3 (04:19→22:14)
--- NOTE | 2020-07-14 04:19 | NUR ---
c/o lt hip pain level 7/10 on numeric scale, requests Tylenol, Tylenol 650mg given
--- NOTE | 2020-07-14 05:00 | NUR ---
resting quietly in bed, pain level 0/10 on CNPI SCALE
[2020-07-14 05:27] VITALS: BP 121/58
[2020-07-14] MEDS: CATHETER FLUSH 10 ML SYR IV SCH ×3 (05:58→20:53)
[2020-07-14] MEDS: DOCUSATE SODIUM 100 MG (COLACE) CAP PO SCH ×2 (09:00→20:53)
[2020-07-14] MEDS: SENNOSIDES 8.6 MG (SENOKOT) TAB PO SCH ×2 (09:01→20:56)
[2020-07-14] MEDS: polyethylene glycoL POWDER 17 GM (MIRALAX) PACK PO SCH ×2 (09:01→20:49)
[2020-07-14] MEDS: PANTOPRAZOLE 20 MG TABLET (PROTONIX) PO SCH (09:01)
[2020-07-14] MEDS: FLUDROCORTISONE 0.1 MG (FLORINEF) TAB PO SCH (09:01)
[2020-07-14] MEDS: DIGOXIN 0.125 MG (LANOXIN) TAB PO SCH (09:01)
[2020-07-14] MEDS: APIXABAN 5 MG (ELIQUIS) TABLET PO SCH ×2 (09:01→20:53)
--- NOTE | 2020-07-14 09:49 | PM&R Progress Note ---
Subjective HPI/CC On Admission Date Seen by Provider: Jul 14, 2020 Time Seen by Provider: 08:00 Subjective/Events-last exam 07/14/20: Had a large BM yesterday Doing very well today Going to try to dress herself today Had a little bit of emesis yesterday before a large bowel movement 07/13/20: Pt having a good day Participating in therapy a little bit more today She self limits Wheelchair bound status is likely the result Eating and drinking well Completing iron infusions 07/12/20: Patient feels pretty good Self limiting is chronic issue No pain reported except hip No falls 07/11/20: Patient doing better today and participated in therapy more Wheelchair bound status likely the end plan No pain IV iron giving her a boost 07/10/20: Midline was placed and it works well IV iron ordered Bowels moved yesterday Consulting Dr. Schmitz for pessary 07/09/20: Pt had a pretty good night She is in chronic AF, heart rate of 70s so rate controlled Dressing changes looked really good Bowels moved yesterday Pt doing pretty well Hgb 9.1 Sleepiness noted Sodium level 130 Bowels moved yesterday Incontinent after brown was discontinued Conferred with RN Checked meds and labs Review of Systems General: Fatigue, Malaise Neurological: Weakness Objective Exam Vital Signs Vital Signs Date Time Temp Pulse Resp B/P (MAP) Pulse Ox O2 Delivery O2 Flow Rate FiO2 07/14/20 16:00 36.8 70 14 139/62 (87) 99 Room Air Capillary Refill : Less Than 3 SecondsLess Than 3 Seconds General Appearance: No Apparent Distress, WD/WN, Chronically ill, Thin HEENT: PERRL/EOMI, Normal ENT Inspection, Pharynx Normal Neck: Full Range of Motion, Normal Inspection, Non Tender, Supple, Carotid Bruit Respiratory: Chest Non Tender, Lungs Clear, Normal Breath Sounds, No Accessory Muscle Use, No Respiratory Distress Cardiovascular: Regular Rate, Rhythm, No Edema, No Gallop, No JVD, No Murmur, Normal Peripheral Pulses, Irregularly Irregular Gastrointestinal: Normal Bowel Sounds, No Organomegaly, No Pulsatile Mass, Non Tender, Soft Back: Normal Inspection, No CVA Tenderness, No Vertebral Tenderness Extremity: Normal Capillary Refill, Normal Inspection, Normal Range of Motion, Non Tender, No Calf Tenderness, No Pedal Edema Neurologic/Psychiatric: Alert, Oriented x3, No Motor/Sensory Deficits, Normal Mood/Affect, clinical trial coordinator II-XII Norm as Tested, Motor Weakness (left leg limited ROM due to pain) Skin: Normal Color, Warm/Dry Lymphatic: No Adenopathy Results/Procedures Lab Patient resulted labs reviewed. FIM Transfers Therapy Code Descriptions/Definitions Functional [place] Measure: 0=Not Assessed/NA 4=Minimal Assistance 1=Total Assistance 5=Supervision or Setup 2=Maximal Assistance 6=Modified [place] 3=Moderate Assistance 7=Complete IndependenceSCALE: Activities may be completed with or without assistive devices. 9-Hzibyudpwj-zijevgo completes the activity by him/herself with no assistance from a helper. 5-Set-up or Clean-up Assistance-helper sets up or cleans up; patient completes activity. [place] assists only prior to or following the activity. 4-Supervision or Touching Assistance-helper provides verbal cues and/or touching/steadying and/or contact guard assistance as patient completes activity. Assistance may be provided throughout the activity or intermittently. 3-Partial/Moderate Assistance-helper does LESS THAN HALF the effort. [place] lifts, holds or supports trunk or limbs, but provides less than half the effort. 2-Substantial/Maximal Assistance-helper does MORE THAN HALF the effort. [place] lifts or holds trunk or limbs and provides more than half the effort. 6-Bhbebetqi-xogybc does ALL the effort. Patient does none of the effort to complete the activity. Or, the assistance of 2 or more helpers is required for the patient to complete the activity. If activity was not attempted, code reason: 7-Patient Refused. 9-Not Applicable-not attempted and the patient did not perform the activity before the current illness, exacerbation or injury. 10-Not Attempted due to Environmental Limitations-(lack of equipment, weather restraints, etc.). 88-Not Attempted due to Medical Conditions or Safety Concerns. Roll Left to Right (QC): 1 Sit to Lying (QC): 3 (min assist with left leg and skilled cues for sequencing. ) Sit to Stand (QC): 4 (CGA with lift chair elevated nd with cues for sequencing. ) Chair/Ywa-di-Cgxin Xfer(QC): 4 Car Transfer (QC): 88 (patient having episode of orthostatic hypotension (not safe to perform on this date)) Gait Training Does the Patient Walk?: Yes Distance: 10 Walk 10 feet (QC): 4 Walk 50 ft with 2 Turns(QC): 7 Walk 150 ft (QC): 7 Walking 10ft/uneven surface-QC: 88 Gait Persons Needed: 1 Gait Assistive Device: FWW Wheelchair Training Does the Pt Use a Wheelchair?: Yes Wheel 50 ft with 2 turns (QC): 4 Wheel 150 ft (QC): 88 Type of Wheelchair: Manual Stair Training 1 Step (curb) (QC): 88 4 Steps (QC): 9 12 Steps (QC): 9 Balance Picking up an Object (QC): 88 ADL-Treatment Eating (QC): 6 (Pt able to open crackers and take a small bite, and able to bring sprite to her mouth and take a sip.) Oral Hygiene (QC): 3 (Pt required assistance rinsing dentures, pt able to place in her mouth and place back in the container but does not want to use fixodent to keep them in.) Bathing Location: L Arm, R Arm, L Upper Leg, R Upper Leg, Chest, Abdomen, Perineal Area Shower/Bathe Self (QC): 3 (Mod A, Pt able to wash upper body with cues for sequencing. Pt stood at [facility] as OT washed buttocks.) Upper Body Dressing (QC): 5 Lower Body Dressing (QC): 4 (Mod verbal cues/demonstration of using AE to doff/don briefs. CGA during stand) On/Off Footwear (QC): 3 (Pt doffed socks with solid fiber paster operator, mod verbal cues for task. Pt then donned socks with sock aide, min A with LLE.) Toileting Hygiene (QC): 4 (CGA during stand at [facility], pt able to manage pants up/down and perform pericare.) Assessment/Plan Assessment and Plan Assess & Plan/Chief Complaint Assessment per Cardiology assessment with my modifications: Labile hypertension and episodes of orthostatic hypotension (demonstrated during this hospitalization). Diltiazem d/c'd during this hospitalization Syncopal episode of undetermined etiology Jul 02, 2020, likely due to postural hypotension. No significant arrhythmia seen on ILR on 07/02/20 S/P L hip fracture repair per Dr. Woodward on Jul 02, 2020 following a syncopal fall S/P ILR on 03/24/20 (after syncope in March 2020) that has shown PAF w RVR w/o significant bradycardia so far Paroxysmal atrial flutter, first documented on tele strips on 02/11/18 Probable TIA on 02/11/18, resulting in transient R foot numbness/weakness leading to fall and fracture of the R 5th metatarsal, managed by her pcp Lena for stroke prophylaxis MPI of March 20, 2018 showed no evidence of ischemia or infarction. LVEF 80% Echocardiogram of February 12, 2018 showed LVEF 65-70%. Mild aortic regurg. Mod TR. PASP 35 mmHg. Trivial MR. Carotid u/s of 03/19/20 showed minimal bilat carotid plaque TSH normal (0.73) on lab work of 02/12/18 Plan: Because of demonstration of orthostatic hypotension, we have stopped long-acting dilt and are using dig for vent rate control during episodes of AF Continue OAC with Eliquis for stroke prophylaxis Monitor labs from time to time IRF protocol Pain control BM regimen 07/08/20: Monitor incontinence Monitor sleepiness Monitor sodium level 07/09/20: Monitor blood pressure Appreciate cardiology Orthostatic hypotension likely will require wheelchair permanently due to fall risk 07/10/20: Maintain iron infusion Maintain midline Bowel regimen Consult gynecology for pessary 07/11/20: Monitor rectal prolapse Monitor BP and orthostasis 07/12/20: Monitor pain Check labs in am Monitor orthostasis 07/13/20: Complete iron infusion Dressing change per ortho Continue to motivate patient to participate 07/14/20: Continue bowel regimen Increase independence with ADL Monitor for emesis recurrence (1) Closed left hip fracture Status: Acute (2) Fall Status: Acute (3) Syncope Status: Acute (4) Orthostatic hypotension (5) GERD (gastroesophageal reflux disease) Status: Chronic (6) Anxiety Status: Chronic (7) Atrial fibrillation with controlled ventricular rate JOVANI CAVAZOS DO Jul 14, 2020 09:49
--- NOTE | 2020-07-14 10:38 | Occupational Ther Daily Note ---
OT Current Status-Daily Note Subjective Pt laying in bed, agreeable to OT Tx. Pt did not verbalize pain rating during tx. Mental Status/Objective Patient Orientation: Person ADL-Treatment Therapy Code Descriptions/Definitions Functional [place] Measure: 0=Not Assessed/NA 4=Minimal Assistance 1=Total Assistance 5=Supervision or Setup 2=Maximal Assistance 6=Modified [place] 3=Moderate Assistance 7=Complete IndependenceSCALE: Activities may be completed with or without assistive devices. 3-Conbojmeva-wfjftjz completes the activity by him/herself with no assistance from a helper. 5-Set-up or Clean-up Assistance-helper sets up or cleans up; patient completes activity. [place] assists only prior to or following the activity. 4-Supervision or Touching Assistance-helper provides verbal cues and/or touching/steadying and/or contact guard assistance as patient completes activity. Assistance may be provided throughout the activity or intermittently. 3-Partial/Moderate Assistance-helper does LESS THAN HALF the effort. [place] lifts, holds or supports trunk or limbs, but provides less than half the effort. 2-Substantial/Maximal Assistance-helper does MORE THAN HALF the effort. [place] lifts or holds trunk or limbs and provides more than half the effort. 6-Jffelrxer-vugfng does ALL the effort. Patient does none of the effort to c omplete the activity. Or, the assistance of 2 or more helpers is required for the patient to complete the activity. If activity was not attempted, code reason: 7-Patient Refused. 9-Not Applicable-not attempted and the patient did not perform the activity before the current illness, exacerbation or injury. 10-Not Attempted due to Environmental Limitations-(lack of equipment, weather restraints, etc.). 88-Not Attempted due to Medical Conditions or Safety Concerns. Eating (QC): 6 (Pt ate cracker independently at end of session.) Oral Hygiene (QC): 7 (Pt declined, stating she does not want to put her dentures in while here.) Shower/Bathe Self (QC): 4 (CGA during stand at FWW to clean periarea and buttocks. OT educated pt on using long handled sponge to wash BLEs.) Upper Body Dressing (QC): 5 (set up, pt able to doff hospital gown and don gut puller shirt.) Lower Body Dressing (QC): 3 (Pt doffed briefs, donning brief and pants. Pt required min A with AE due to poor carryover between sessions) On/Off Footwear: 3 (Min A with AE due to poor carryover between sessions.) Toileting Hygiene (QC): 4 (CGA during stand at [facility] for clothing management and to wash buttocks.) Toilet Transfer (QC): 4 (CGA on/off BSC.) Other Treatment Pt laying in bed, transferred supine to sit EOB with SBA. Pt then stood at [facility], transferring to recliner with CGA. Pt completed sponge bath and dressing at recliner, during stand to change brief, pt began to have a BM, pt sat back on recliner as OT set up BSC beside chair. Pt then transferred to BS using FWW, CGA. Pt completed toileting and finished sponge bath/dressing at BS. Pt then transferred back to recliner. Pt had poor carryover on using AE from previous sessions. Pt reports she is tired after tx, stating she needs to rest. OT cleaned up from ADL session. Pt declined completing oral hygiene at this time, stating she does not want to wear her dentures while in the hospital because they sometimes make her feel worse, pt wants to send dentures home with her family. OT educated pt on importance of completing oral care while she is here but pt declines wearing her dentures. Post OT Tx, pt seated in recliner, call light in reach and all needs met. Education OT Patient Education: Correct positioning, Energy conservation, Modified ADL techniques, Progress toward Goal/Update tx plan, Purpose of tx/functional activities, Safety issues, Transfer techniques Teaching Recipient: Patient Teaching Methods: Demonstration, Discussion Response to Teaching: Verbalize Understanding, Return Demonstration, Reinforcement Needed OT Short Term Goals Short Term Goals Time Frame: Jul 21, 2020 Oral hygiene: 5 Toileting hygiene: 3 Shower/bathe self: 3 Upper body dressin Lower body dressin Putting on/taking off footwear: 3 OT Jail Goals Jail Goals Time Frame: Aug 04, 2020 Eating (QC): 6 Oral Hygiene (QC): 6 Toileting Hygiene (QC): 6 Shower/Bathe Self (QC): 6 Upper Body Dressing (QC): 6 Lower Body Dressing (QC): 6 On/Off Footwear (QC): 6 Additional Goals: 1-Demonstrate ADL Tasks, 2-Verbalize Understanding, 3- ImproveStrength/Syl 1=Demonstrate adherence to instructed precautions during ADL tasks. 2=Patient will verbalize/demonstrate understanding of assistive devices/modifications for ADL. 3=Patient will improve strength/tolerance for activity to enable patient to perform ADL's. OT Education/Plan Problem List/Assessment Assessment: Decreased Activ Tolerance, Decreased UE Strength, Impaired Funct Balance, Impaired I ADL's, Impaired Self-Care Skills Discharge Recommendations Plan/Recommendations: Continue POC Treatment Plan/Plan of Care Patient would benefit from OT for education, treatment and training to promote independence in ADL's, mobility, safety and/or upper extremity function for ADL's. Plan of Care: ADL Retraining, Functional Mobility, Group Exercise/Act as Ind, UE Funct Exercise/Act Treatment Duration: Aug 04, 2020 Frequency: Modified Program (IRF) (27/05) Estimated Hrs Per Day: 1.5 hours per day Rehab Potential: Fair Time/GCodes Start Time: 09:30 Stop Time: 10:30 Total Time Billed (hr/min): 60 Billed Treatment Time 1, ADL 4 FRITZ MUIR OT Jul 14, 2020 10:38
--- NOTE | 2020-07-14 12:04 | Physical Therapy Daily Note ---
PT Daily Note-Current Subjective Pt sitting in recliner upon arrival. Pt agrees to PT. Pain Numeric Pain Scale: 10-Worst Possible Pain Location: Right Location Body Site: Hip Pain Description: Sharp Comment: Pt reports pain at rest as well as w/movement. Nurse gives med. Mental Status Patient Orientation: Person, Place Transfers SCALE: Activities may be completed with or without assistive devices. 4-Wvemyiuwly-ekekbkq completes the activity by him/herself with no assistance from a helper. 5-Set-up or Clean-up Assistance-helper sets up or cleans up; patient completes activity. [place] assists only prior to or following the activity. 4-Supervision or Touching Assistance-helper provides verbal cues and/or touching/steadying and/or contact guard assistance as patient completes activity. Assistance may be provided throughout the activity or intermittently. 3-Partial/Moderate Assistance-helper does LESS THAN HALF the effort. [place] lifts, holds or supports trunk or limbs, but provides less than half the effort. 2-Substantial/Maximal Assistance-helper does MORE THAN HALF the effort. [place] lifts or holds trunk or limbs and provides more than half the effort. 6-Obxwsgqtg-lerkql does ALL the effort. Patient does none of the effort to complete the activity. Or, the assistance of 2 or more helpers is required for the patient to complete the activity. If activity was not attempted, code reason: 7-Patient Refused. 9-Not Applicable-not attempted and the patient did not perform the activity before the current illness, exacerbation or injury. 10-Not Attempted due to Environmental Limitations-(lack of equipment, weather restraints, etc.). 88-Not Attempted due to Medical Conditions or Safety Concerns. Sit to Stand (QC): 4 Weight Bearing Right Lower Extremity: Right Weight Bearing/Tolerated Left Lower Extremity: Left Weight Bearing/Tolerated Gait Training Does the Patient Walk?: Yes Distance: 35', 25', 60' Walk 10 feet (QC): 4 Walk 50 ft with 2 Turns(QC): 4 Gait Persons Needed: 1 Gait Assistive Device: FWW Pt amb. julien on R LE. Pt needs encouragement to walk farther. Exercises Supine Ex: Ankle pumps, Quad Set, Glut sets, Heel Slides, Hip abd/add Supine Reps: 15 Treatments Pt completes Supine Ex in chair with encouragement from COLOR BUFFER. Pt amb. in hallway with RB as needed for pain and fatigue. Pt is given pt education on Pursed Lip Breathing, Benefits of Therapy, reviewed Hip Precautions & Pain Management. Pt returns to recliner to rest with all needs met, call light in hand. Assessment Current Status: Good Progress Pt needs encouragement to try to push through pain as well as Nurse gives pain med to assist. PT Short Term Goals Short Term Goals Time Frame: Jul 25, 2020 Roll Left & Right: 3 Sit to lyin Lying to sitting on side of be: 3 Sit to stand: 3 Chair/vuv-tb-prdot transfer: 3 Toilet transfer: 3 Car transfer: 3 Walk 10 feet: 3 Walk 50 feet with two turns: 3 Walk 150 feet: 3 Walking 10ft on uneven surface: 3 PT Information Systems Analyst Goals Mcfp Goals PT Information Systems Analyst Goals Time Frame: Aug 08, 2020 Roll Left & Right (QC): 5 Sit to Lying (QC): 5 Lying-Sitting on Side/Bed(QC): 5 Sit to Stand (QC): 5 Chair/Jlm-qu-Edvnf Xfer(QC): 5 Toilet Transfer (QC): 5 Car Transfer (QC): 5 Does the Patient Walk: Yes Walk 10 feet (QC): 5 Walk 50ft with 2 Turns (QC): 5 Walk 150 ft (QC): 5 Walking 10ft on Uneven Surface: 5 1 Step (curb) (QC): 4 4 Steps (QC): 9 12 Steps (QC): 9 Picking up an Object (QC): 5 Wheel 50 feet with 2 turns (QC: 5 (if deemed necessary by therapy team) Type: Manual Wheel 150 feet: 5 Type: Manual PT Plan Problem List Problem List: Activity Tolerance, Functional Strength, Safety, Gait Treatment/Plan Treatment Plan: Continue Plan of Care Treatment Plan: Bed Mobility, Concurrent Therapy, Education, Functional Activity Syl, Functional Strength, Group Therapy, Gait, Safety, Therapeutic Exercise, Transfers Treatment Duration: Aug 08, 2020 Frequency: Modified Program (IRF) (intensity waiver) Estimated Hrs Per Day: 1 hour per day (increase as tolerated) Patient and/or Family Agrees t: Yes Safety Risks/Education Patient Education: Gait Training, Transfer Techniques, Reviewed Precautions, Correct Positioning, Safety Issues Teaching Recipient: Patient Teaching Methods: Discussion Response to Teaching: Verbalize Understanding, Reinforcement Needed Time/GCodes Time In: 1045 Time Out: 1145 Total Billed Treatment Time: 60 Total Billed Treatment 1, EX x2 (25m), FA (15m) & GT (20m) DUNCAN JACOBS COLOR BUFFER Jul 14, 2020 12:04
--- NOTE | 2020-07-14 13:35 | Occupational Ther Daily Note ---
OT Current Status-Daily Note Subjective Pt seated in recliner, agreeable to OT Tx. Pt did not verbalize pain during tx. Mental Status/Objective Patient Orientation: Person ADL-Treatment Therapy Code Descriptions/Definitions Functional [place] Measure: 0=Not Assessed/NA 4=Minimal Assistance 1=Total Assistance 5=Supervision or Setup 2=Maximal Assistance 6=Modified [place] 3=Moderate Assistance 7=Complete IndependenceSCALE: Activities may be completed with or without assistive devices. 2-Foufnkgkbm-kwkpugt completes the activity by him/herself with no assistance from a helper. 5-Set-up or Clean-up Assistance-helper sets up or cleans up; patient completes activity. [place] assists only prior to or following the activity. 4-Supervision or Touching Assistance-helper provides verbal cues and/or touching/steadying and/or contact guard assistance as patient completes activity. Assistance may be provided throughout the activity or intermittently. 3-Partial/Moderate Assistance-helper does LESS THAN HALF the effort. [place] lifts, holds or supports trunk or limbs, but provides less than half the effort. 2-Substantial/Maximal Assistance-helper does MORE THAN HALF the effort. [place] lifts or holds trunk or limbs and provides more than half the effort. 2-Vaxlgdphm-vtffcb does ALL the effort. Patient does none of the effort to com plete the activity. Or, the assistance of 2 or more helpers is required for the patient to complete the activity. If activity was not attempted, code reason: 7-Patient Refused. 9-Not Applicable-not attempted and the patient did not perform the activity before the current illness, exacerbation or injury. 10-Not Attempted due to Environmental Limitations-(lack of equipment, weather restraints, etc.). 88-Not Attempted due to Medical Conditions or Safety Concerns. Eating (QC): 6 (Pt reports no difficulties eating lunch) Toileting Hygiene (QC): 4 (SBA, pt able to manage clothing standing at FWW/GBs, and perform hygiene.) Toilet Transfer (QC): 4 (SBA with FWW.) Other Treatment Pt seated in recliner, stating she smells like she may need to change her underwear. Pt stood from recliner, using FWW to go to the toilet with SBA. Pt completed toileting and hygiene, OT assisted pt with changing into a clean brief. Pt then stood at the sink to wash her hands, leaning against the sink for support. Pt returned to the recliner with SBA using FWW. In order to increase fine motor strength and coordination, OT provided pt with moderate resistance therapy sponge. Pt completed x20 reps manufacturing executive squeezes each hand, and x10 each hand for tip to tip pinch and 3 jaw renae. Post OT Tx, pt seated in recliner, call light in reach and all needs met. Education OT Patient Education: Correct positioning, Energy conservation, Modified ADL techniques, Progress toward Goal/Update tx plan, Purpose of tx/functional activities Teaching Recipient: Patient Teaching Methods: Discussion Response to Teaching: Verbalize Understanding OT Short Term Goals Short Term Goals Time Frame: Jul 21, 2020 Oral hygiene: 5 Toileting hygiene: 3 Shower/bathe self: 3 Upper body dressin Lower body dressin Putting on/taking off footwear: 3 OT [facility] Goals It Compliance Analyst Goals Time Frame: Aug 04, 2020 Eating (QC): 6 Oral Hygiene (QC): 6 Toileting Hygiene (QC): 6 Shower/Bathe Self (QC): 6 Upper Body Dressing (QC): 6 Lower Body Dressing (QC): 6 On/Off Footwear (QC): 6 Additional Goals: 1-Demonstrate ADL Tasks, 2-Verbalize Understanding, 3- ImproveStrength/Syl 1=Demonstrate adherence to instructed precautions during ADL tasks. 2=Patient will verbalize/demonstrate understanding of assistive devices/modifications for ADL. 3=Patient will improve strength/tolerance for activity to enable patient to perform ADL's. OT Education/Plan Problem List/Assessment Assessment: Decreased Activ Tolerance, Decreased UE Strength, Impaired Funct Balance, Impaired I ADL's, Impaired Self-Care Skills Discharge Recommendations Plan/Recommendations: Continue POC Treatment Plan/Plan of Care Patient would benefit from OT for education, treatment and training to promote independence in ADL's, mobility, safety and/or upper extremity function for ADL's. Plan of Care: ADL Retraining, Functional Mobility, Group Exercise/Act as Ind, UE Funct Exercise/Act Treatment Duration: Aug 04, 2020 Frequency: Modified Program (IRF) (27/05) Estimated Hrs Per Day: 1.5 hours per day Rehab Potential: Fair Time/GCodes Start Time: 13:00 Stop Time: 13:30 Total Time Billed (hr/min): 30 Billed Treatment Time 1, ADL (20'), EX (10') FRITZ MUIR OT Jul 14, 2020 13:35
--- NOTE | 2020-07-14 14:11 | Physical Therapy Daily Note ---
PT Daily Note-Current Subjective Pt sitting in recliner upon arrival. Pt agrees to PT. Pain Comment: Pt reports pain but does not rate with Ex. Mental Status Patient Orientation: Person, Place Transfers SCALE: Activities may be completed with or without assistive devices. 0-Sqpmcqlwie-pzliyth completes the activity by him/herself with no assistance from a helper. 5-Set-up or Clean-up Assistance-helper sets up or cleans up; patient completes activity. [place] assists only prior to or following the activity. 4-Supervision or Touching Assistance-helper provides verbal cues and/or touching/steadying and/or contact guard assistance as patient completes activity. Assistance may be provided throughout the activity or intermittently. 3-Partial/Moderate Assistance-helper does LESS THAN HALF the effort. [place] lifts, holds or supports trunk or limbs, but provides less than half the effort. 2-Substantial/Maximal Assistance-helper does MORE THAN HALF the effort. [place] lifts or holds trunk or limbs and provides more than half the effort. 4-Mmnhlldpg-ueivvu does ALL the effort. Patient does none of the effort to c omplete the activity. Or, the assistance of 2 or more helpers is required for the patient to complete the activity. If activity was not attempted, code reason: 7-Patient Refused. 9-Not Applicable-not attempted and the patient did not perform the activity before the current illness, exacerbation or injury. 10-Not Attempted due to Environmental Limitations-(lack of equipment, weather restraints, etc.). 88-Not Attempted due to Medical Conditions or Safety Concerns. Sit to Lying (QC): 4 Sit to Stand (QC): 4 Weight Bearing Right Lower Extremity: Right Weight Bearing/Tolerated Left Lower Extremity: Left Weight Bearing/Tolerated Exercises Seated Therapy Exercises: Ankle pumps, Long arc quads, Hip flexion (Limited on L LE due to Hip Precautions), Kicking activity, Glut set Treatments Pt completes Seated Ex (see above) then transfers to standing. Pt transfers to EOB then Supine. Pt is assisted in repositioning to comfort, has all needs met including call light in hand. Assessment Current Status: Fair Progress Trouble with retention from tx to tx. Pt needs encouragement to push self. PT Short Term Goals Short Term Goals Time Frame: Jul 25, 2020 Roll Left & Right: 3 Sit to lyin Lying to sitting on side of be: 3 Sit to stand: 3 Chair/olo-dh-bibgt transfer: 3 Toilet transfer: 3 Car transfer: 3 Walk 10 feet: 3 Walk 50 feet with two turns: 3 Walk 150 feet: 3 Walking 10ft on uneven surface: 3 PT Western Philosophy Professor Goals Western Philosophy Professor Goals PT Western Philosophy Professor Goals Time Frame: Aug 08, 2020 Roll Left & Right (QC): 5 Sit to Lying (QC): 5 Lying-Sitting on Side/Bed(QC): 5 Sit to Stand (QC): 5 Chair/Kte-sq-Rxkdz Xfer(QC): 5 Toilet Transfer (QC): 5 Car Transfer (QC): 5 Does the Patient Walk: Yes Walk 10 feet (QC): 5 Walk 50ft with 2 Turns (QC): 5 Walk 150 ft (QC): 5 Walking 10ft on Uneven Surface: 5 1 Step (curb) (QC): 4 4 Steps (QC): 9 12 Steps (QC): 9 Picking up an Object (QC): 5 Wheel 50 feet with 2 turns (QC: 5 (if deemed necessary by therapy team) Type: Manual Wheel 150 feet: 5 Type: Manual PT Plan Problem List Problem List: Activity Tolerance, Safety, Gait Treatment/Plan Treatment Plan: Continue Plan of Care Treatment Plan: Bed Mobility, Concurrent Therapy, Education, Functional Activity Syl, Functional Strength, Group Therapy, Gait, Safety, Therapeutic Exercise, Transfers Treatment Duration: Aug 08, 2020 Frequency: Modified Program (IRF) (intensity waiver) Estimated Hrs Per Day: 1 hour per day (increase as tolerated) Patient and/or Family Agrees t: Yes Safety Risks/Education Patient Education: Transfer Techniques, Correct Positioning, Safety Issues Teaching Recipient: Patient Teaching Methods: Discussion Response to Teaching: Verbalize Understanding Time/GCodes Time In: 1330 Time Out: 1400 Total Billed Treatment Time: 30 Total Billed Treatment 1, EX(20m) & FA (10m) DUNCAN JACOBS PTA Jul 14, 2020 14:11
--- NOTE | 2020-07-14 15:51 | Cardiology Progress Note ---
Cardiology SOAP Progress Note Subjective: No cardiac complaints. Objective: I&O/Vital Signs 07/14/20 07/14/20 05:27 09:00 Temp 36.9 Pulse 70 Resp 18 B/P (MAP) 121/58 (79) Pulse Ox 97 O2 Delivery Room Air Room Air 07/14/20 00:00 Intake Total 630 ml Balance 630 ml Weight (Pounds): 129 Weight (Ounces): 8.0 Weight (Calculated Kilograms): [id number] Constitutional: AAO x 3, well-developed, well-nourished Respiratory: No accessory muscle use; other (good bilat air entry) Cardiovascular: regular rate-rhythm, S1 and S2, systolic murmur (soft SARAI at card base) Gastrointestional: No tender; soft; No guarding; audible bowel sounds Extremities: No clubbing, No cyanosis, No significant edema Neurologic/Psychiatric: oriented x 3, other (moves all limbs equally) Skin: No rash on exposed areas, No ulcerations on exposed areas A/P: Assessment/Dx: Labile hypertension and episodes of orthostatic hypotension (demonstrated during this hospitalization). Diltiazem d/c'd during this hospitalization Syncopal episode of undetermined etiology Jul 02, 2020, likely due to postural hypotension. No significant arrhythmia seen on ILR on 07/02/20 S/p L hip fracture repair per Dr. Woodward on Jul 02, 2020 following a syncopal fall S/p ILR on 03/24/20 (after syncope in March 2020) that has shown PAF w RVR w/o significant bradycardia so far Paroxysmal atrial flutter, first documented on tele strips on 02/11/18 Probable TIA on 02/11/18, resulting in transient R foot numbness/weakness leading to fall and fracture of the R 5th metatarsal, managed by her pcp Lena for stroke prophylaxis MPI of March 20, 2018 showed no evidence of ischemia or infarction. LVEF 80% Echocardiogram of February 12, 2018 showed LVEF 65-70%. Mild aortic regurg. Mod TR. PASP 35 mmHg. Trivial MR. Carotid u/s of 03/19/20 showed minimal bilat carotid plaque TSH normal (0.73) on lab work of 02/12/18 Plan: * Continue current regimen * Monitor labs from time to time Thank you for your consultation. Please call me if you have any questions. M. Bradley Khalid, MD, FACP, FACC, FSCAI, FHRS, CCDS Interventional Cardiology Cardiac Electrophysiology Vascular Medicine and Endovascular Interventions Arturo TAY MD Jul 14, 2020 15:51
[2020-07-14 16:00] VITALS: BP 139/62
--- NOTE | 2020-07-14 17:40 | NUR ---
daughter visits, patient talkative and in good spirits.
[2020-07-14] MEDS: ALPRAZolam 0.25 MG (XANAX) TAB PO SCH (20:57)
--- NOTE | 2020-07-15 05:46 | PM&R Progress Note ---
Subjective HPI/CC On Admission Date Seen by Provider: Jul 15, 2020 Time Seen by Provider: 09:00 Subjective/Events-last exam 07/15/20: Refuses to turn during the night Tylenol given last night BP is orthostatic as usual Had a BM yesterday 07/14/20: Had a large BM yesterday Doing very well today Going to try to dress herself today Had a little bit of emesis yesterday before a large bowel movement 07/13/20: Pt having a good day Participating in therapy a little bit more today She self limits Wheelchair bound status is likely the result Eating and drinking well Completing iron infusions 07/12/20: Patient feels pretty good Self limiting is chronic issue No pain reported except hip No falls 07/11/20: Patient doing better today and participated in therapy more Wheelchair bound status likely the end plan No pain IV iron giving her a boost 07/10/20: Midline was placed and it works well IV iron ordered Bowels moved yesterday Consulting Dr. Schmitz for pessary 07/09/20: Pt had a pretty good night She is in chronic AF, heart rate of 70s so rate controlled Dressing changes looked really good Bowels moved yesterday Pt doing pretty well Hgb 9.1 Sleepiness noted Sodium level 130 Bowels moved yesterday Incontinent after brown was discontinued Conferred with RN Checked meds and labs Review of Systems General: Fatigue, Malaise Neurological: Weakness Objective Exam Vital Signs Vital Signs Date Time Temp Pulse Resp B/P (MAP) Pulse Ox O2 Delivery O2 Flow Rate FiO2 07/15/20 17:35 36.4 78 18 144/65 (91) 96 Room Air Capillary Refill : Less Than 3 SecondsLess Than 3 Seconds General Appearance: No Apparent Distress, WD/WN, Chronically ill, Thin HEENT: PERRL/EOMI, Normal ENT Inspection, Pharynx Normal Neck: Full Range of Motion, Normal Inspection, Non Tender, Supple, Carotid Bruit Respiratory: Chest Non Tender, Lungs Clear, Normal Breath Sounds, No Accessory Muscle Use, No Respiratory Distress Cardiovascular: Regular Rate, Rhythm, No Edema, No Gallop, No JVD, No Murmur, Normal Peripheral Pulses, Irregularly Irregular Gastrointestinal: Normal Bowel Sounds, No Organomegaly, No Pulsatile Mass, Non Tender, Soft Back: Normal Inspection, No CVA Tenderness, No Vertebral Tenderness Extremity: Normal Capillary Refill, Normal Inspection, Normal Range of Motion, Non Tender, No Calf Tenderness, No Pedal Edema Neurologic/Psychiatric: Alert, Oriented x3, No Motor/Sensory Deficits, Normal Mood/Affect, feed research technician II-XII Norm as Tested, Motor Weakness (left leg limited ROM due to pain) Skin: Normal Color, Warm/Dry Lymphatic: No Adenopathy Results/Procedures Lab Patient resulted labs reviewed. FIM Transfers Therapy Code Descriptions/Definitions Functional [place] Measure: 0=Not Assessed/NA 4=Minimal Assistance 1=Total Assistance 5=Supervision or Setup 2=Maximal Assistance 6=Modified [place] 3=Moderate Assistance 7=Complete IndependenceSCALE: Activities may be completed with or without assistive devices. 9-Strzhcokaj-kulfesm completes the activity by him/herself with no assistance from a helper. 5-Set-up or Clean-up Assistance-helper sets up or cleans up; patient completes activity. [place] assists only prior to or following the activity. 4-Supervision or Touching Assistance-helper provides verbal cues and/or touching/steadying and/or contact guard assistance as patient completes activity. Assistance may be provided throughout the activity or intermittently. 3-Partial/Moderate Assistance-helper does LESS THAN HALF the effort. [place] lifts, holds or supports trunk or limbs, but provides less than half the effort. 2-Substantial/Maximal Assistance-helper does MORE THAN HALF the effort. [place] lifts or holds trunk or limbs and provides more than half the effort. 9-Rujindpak-rhpypo does ALL the effort. Patient does none of the effort to complete the activity. Or, the assistance of 2 or more helpers is required for the patient to complete the activity. If activity was not attempted, code reason: 7-Patient Refused. 9-Not Applicable-not attempted and the patient did not perform the activity before the current illness, exacerbation or injury. 10-Not Attempted due to Environmental Limitations-(lack of equipment, weather restraints, etc.). 88-Not Attempted due to Medical Conditions or Safety Concerns. Roll Left to Right (QC): 1 Sit to Lying (QC): 4 Sit to Stand (QC): 4 Chair/Xeg-yz-Zhheo Xfer(QC): 4 Car Transfer (QC): 88 (patient having episode of orthostatic hypotension (not safe to perform on this date)) Gait Training Does the Patient Walk?: Yes Distance: 35', 25', 60' Walk 10 feet (QC): 4 Walk 50 ft with 2 Turns(QC): 4 Walk 150 ft (QC): 7 Walking 10ft/uneven surface-QC: 88 Gait Persons Needed: 1 Gait Assistive Device: FWW Wheelchair Training Does the Pt Use a Wheelchair?: Yes Wheel 50 ft with 2 turns (QC): 4 Wheel 150 ft (QC): 88 Type of Wheelchair: Manual Stair Training 1 Step (curb) (QC): 88 4 Steps (QC): 9 12 Steps (QC): 9 Balance Picking up an Object (QC): 88 ADL-Treatment Eating (QC): 6 (Pt reports no difficulties eating lunch) Oral Hygiene (QC): 7 (Pt declined, stating she does not want to put her dentures in while here.) Bathing Location: L Arm, R Arm, L Upper Leg, R Upper Leg, Chest, Abdomen, Perin eal Area Shower/Bathe Self (QC): 4 (CGA during stand at W to clean periarea and buttocks. OT educated pt on using long handled sponge to wash BLEs.) Upper Body Dressing (QC): 5 (set up, pt able to doff hospital gown and don puller machine shirt.) Lower Body Dressing (QC): 3 (Pt doffed briefs, donning brief and pants. Pt required min A with AE due to poor carryover between sessions) On/Off Footwear (QC): 3 (Min A with AE due to poor carryover between sessions.) Toileting Hygiene (QC): 4 (SBA, pt able to manage clothing standing at W/[facility], and perform hygiene.) Toilet Transfer (QC): 4 (SBA with FWW.) Assessment/Plan Assessment and Plan Assess & Plan/Chief Complaint Assessment per Cardiology assessment with my modifications: Labile hypertension and episodes of orthostatic hypotension (demonstrated during this hospitalization). Diltiazem d/c'd during this hospitalization Syncopal episode of undetermined etiology Jul 02, 2020, likely due to postural hypotension. No significant arrhythmia seen on ILR on 07/02/20 S/P L hip fracture repair per Dr. Woodward on Jul 02, 2020 following a syncopal fall S/P ILR on 03/24/20 (after syncope in March 2020) that has shown PAF w RVR w/o significant bradycardia so far Paroxysmal atrial flutter, first documented on tele strips on 02/11/18 Probable TIA on 02/11/18, resulting in transient R foot numbness/weakness leading to fall and fracture of the R 5th metatarsal, managed by her pcp Lena for stroke prophylaxis MPI of March 20, 2018 showed no evidence of ischemia or infarction. LVEF 80% Echocardiogram of February 12, 2018 showed LVEF 65-70%. Mild aortic regurg. Mod TR. PASP 35 mmHg. Trivial MR. Carotid u/s of 03/19/20 showed minimal bilat carotid plaque TSH normal (0.73) on lab work of 02/12/18 Plan: Because of demonstration of orthostatic hypotension, we have stopped long-acting dilt and are using dig for vent rate control during episodes of AF Continue OAC with Eliquis for stroke prophylaxis Monitor labs from time to time IRF protocol Pain control BM regimen 07/08/20: Monitor incontinence Monitor sleepiness Monitor sodium level 07/09/20: Monitor blood pressure Appreciate cardiology Orthostatic hypotension likely will require wheelchair permanently due to fall risk 07/10/20: Maintain iron infusion Maintain midline Bowel regimen Consult gynecology for pessary 07/11/20: Monitor rectal prolapse Monitor BP and orthostasis 07/12/20: Monitor pain Check labs in am Monitor orthostasis 07/13/20: Complete iron infusion Dressing change per ortho Continue to motivate patient to participate 07/14/20: Continue bowel regimen Increase independence with ADL Monitor for emesis recurrence 07/15/20: Continue all therapy Team conference to decide on disposition discharge Monitor closely (1) Closed left hip fracture Status: Acute (2) Fall Status: Acute (3) Syncope Status: Acute (4) Orthostatic hypotension (5) GERD (gastroesophageal reflux disease) Status: Chronic (6) Anxiety Status: Chronic (7) Atrial fibrillation with controlled ventricular rate JOVANI CAVAZOS DO Jul 15, 2020 05:46
[2020-07-15 05:57] VITALS: BP 159/72
[2020-07-15] MEDS: CATHETER FLUSH 10 ML SYR IV SCH ×3 (06:22→22:24)
[2020-07-15] MEDS: FLUDROCORTISONE 0.1 MG (FLORINEF) TAB PO SCH (09:45)
[2020-07-15] MEDS: DOCUSATE SODIUM 100 MG (COLACE) CAP PO SCH ×2 (09:47→21:21)
[2020-07-15] MEDS: DIGOXIN 0.125 MG (LANOXIN) TAB PO SCH (09:47)
[2020-07-15] MEDS: PANTOPRAZOLE 20 MG TABLET (PROTONIX) PO SCH (09:47)
[2020-07-15] MEDS: APIXABAN 5 MG (ELIQUIS) TABLET PO SCH ×2 (09:47→21:17)
[2020-07-15] MEDS: ACETAMINOPHEN 325 MG TABLET PO PRN (10:10)
--- NOTE | 2020-07-15 10:13 | Occupational Ther Daily Note ---
OT Current Status-Daily Note Subjective Pt laying in bed stating she has had diarrhea this AM. Pt agreeable to OT tx. Mental Status/Objective Patient Orientation: Person, Confused ADL-Treatment Therapy Code Descriptions/Definitions Functional [place] Measure: 0=Not Assessed/NA 4=Minimal Assistance 1=Total Assistance 5=Supervision or Setup 2=Maximal Assistance 6=Modified [place] 3=Moderate Assistance 7=Complete IndependenceSCALE: Activities may be completed with or without assistive devices. 4-Nchnjzfast-fbbddgi completes the activity by him/herself with no assistance from a helper. 5-Set-up or Clean-up Assistance-helper sets up or cleans up; patient completes activity. [place] assists only prior to or following the activity. 4-Supervision or Touching Assistance-helper provides verbal cues and/or touching/steadying and/or contact guard assistance as patient completes activity. Assistance may be provided throughout the activity or intermittently. 3-Partial/Moderate Assistance-helper does LESS THAN HALF the effort. [place] lifts, holds or supports trunk or limbs, but provides less than half the effort. 2-Substantial/Maximal Assistance-helper does MORE THAN HALF the effort. [place] lifts or holds trunk or limbs and provides more than half the effort. 1-Eypziqqfq-oyprdx does ALL the effort. Patient does none of the effort to complete the activity. Or, the assistance of 2 or more helpers is required for the patient to complete the activity. If activity was not attempted, code reason: 7-Patient Refused. 9-Not Applicable-not attempted and the patient did not perform the activity before the current illness, exacerbation or injury. 10-Not Attempted due to Environmental Limitations-(lack of equipment, weather restraints, etc.). 88-Not Attempted due to Medical Conditions or Safety Concerns. Upper Body Dressing (QC): 5 (set up ) Lower Body Dressing (QC): 3 (Pt required cues for sequencing to don pants with residential sales consultant, pt got pants up but ended up having them on backwards. OT assisted pt with correcting error. CGA during stand at W as pt completed pant hike.) On/Off Footwear: 3 (Pt able to doff socks using residential sales consultant with min cues, OT handed pt sock aide but pt had poor carryover of task requiring cues as to what sock aide is used for and cues for sequencing.) Toileting Hygiene (QC): 2 (Assist doffing/donning tab style brief due to pt being incontinent of bowel. Pt able to complete pant hike at FWW with CGA.) Toilet Transfer (QC): 4 (CGA on/off BSC over toilet.) Other Treatment Pt laying in bed, stating she has had diarrhea this AM and just had assistance cleaning up. Pt transferred supine to sit EOB with SBA, pt stating she did not think she would be able to move her left leg on her own but she was able to with encouragement. Pt completed dressing EOB, with cues for sequencing of AE due to poor carryover from previous sessions. Pt required cue to don LLE first into pants. When OT handed pt a sock aide she attempted to put the sock aide on her foot using a residential sales consultant without donning sock first. OT asked pt what this device was used for and pt unable to recall. OT informed pt it was used to put socks on, pt then able to use sock aide correctly with min cues. Pt agreeable to transfer to recliner, pt stood at FWW then stated she was having diarrhea and needed to change her brief, OT guided pt into the restroom. Pt doffed LE clothes for toileting, OT assisted with doffing soiled brief, pt then sat on BSC over toilet and completed toileting/hygiene. OT assisted pt with donning clean tab style brief, then pt completed pant hike at FWW, CGA. Pt stood at sink, CGA, to wash her hands, then transferred to recliner. Pt states she has not had any medicines this AM and she would like a pain pill, OT notified pt's nurse. Pt did not verbalize pain rating during tx. Pt encouraged to use incentive spirometer at recliner per doctor reporting "crackling" in lungs. OT educated pt on how to control electric recliner, pt able to elevate her legs. Post OT Tx, pt seated in recliner, call light in reach and all needs met. Education OT Patient Education: Correct positioning, Energy conservation, Modified ADL techniques, Progress toward Goal/Update tx plan, Purpose of tx/functional activities, Use of adapted equipment Teaching Recipient: Patient Teaching Methods: Demonstration, Discussion Response to Teaching: Verbalize Understanding, Return Demonstration, Reinforcement Needed OT Short Term Goals Short Term Goals Time Frame: Jul 21, 2020 Oral hygiene: 5 Toileting hygiene: 3 Shower/bathe self: 3 Upper body dressin Lower body dressin Putting on/taking off footwear: 3 OT Drug Safety Associate Goals [facility] Goals Time Frame: Aug 04, 2020 Eating (QC): 6 Oral Hygiene (QC): 6 Toileting Hygiene (QC): 6 Shower/Bathe Self (QC): 6 Upper Body Dressing (QC): 6 Lower Body Dressing (QC): 6 On/Off Footwear (QC): 6 Additional Goals: 1-Demonstrate ADL Tasks, 2-Verbalize Understanding, 3-ImproveStrength/Syl 1=Demonstrate adherence to instructed precautions during ADL tasks. 2=Patient will verbalize/demonstrate understanding of assistive devices/modifications for ADL. 3=Patient will improve strength/tolerance for activity to enable patient to perform ADL's. OT Education/Plan Problem List/Assessment Assessment: Decreased Activ Tolerance, Decreased UE Strength, Impaired Funct Balance, Impaired I ADL's, Impaired Self-Care Skills Discharge Recommendations Plan/Recommendations: Continue POC Treatment Plan/Plan of Care Patient would benefit from OT for education, treatment and training to promote independence in ADL's, mobility, safety and/or upper extremity function for ADL's. Plan of Care: ADL Retraining, Functional Mobility, Group Exercise/Act as Ind, UE Funct Exercise/Act Treatment Duration: Aug 04, 2020 Frequency: Modified Program (IRF) (27/05) Estimated Hrs Per Day: 1.5 hours per day Rehab Potential: Fair Time/GCodes Start Time: 09:00 Stop Time: 10:00 Total Time Billed (hr/min): 60 Billed Treatment Time 1, ADL 4 FRITZ MUIR OT Jul 15, 2020 10:13
--- NOTE | 2020-07-15 10:29 | Progress Note ---
Standard Progress Note Progress Notes/Assess & Plan Date Seen by a Provider: Jul 15, 2020 Time Seen by a Provider: 10:28 Progress/Assessment & Plan no complaints Vital Signs Date Time Temp Pulse Resp B/P (MAP) Pulse Ox O2 Delivery O2 Flow Rate FiO2 07/08/20 06:05 36.5 85 20 149/68 (95) 92 Room Air 07/07/20 22:18 Room Air 07/07/20 20:00 Room Air 07/07/20 15:50 Room Air 07/07/20 15:29 36.2 91 16 135/68 98 Room Air 07/07/20 15:28 36.2 91 16 135/68 (90) 98 Room Air I & O 07/08/20 07:00 Intake Total 840 ml Balance 840 ml Laboratory Tests Test 07/08/20 04:35 Range/Units White Blood Count 8.6 4.3-11.0 10^3/uL Red Blood Count 2.71 L 4.35-5.85 10^6/uL Hemoglobin 9.1 L 11.5-16.0 G/DL Hematocrit 27 L 35-52 % Mean Corpuscular Volume 99 80-99 FL Mean Corpuscular Hemoglobin 34 25-34 PG Mean Corpuscular Hemoglobin Concent 34 32-36 G/DL Red Cell Distribution Width 13.1 10.0-14.5 % Platelet Count 294 130-400 10^3/uL Mean Platelet Volume 9.5 7.4-10.4 FL Neutrophils (%) (Auto) 72 42-75 % Lymphocytes (%) (Auto) 15 12-44 % Monocytes (%) (Auto) 12 0-12 % Eosinophils (%) (Auto) 2 0-10 % Basophils (%) (Auto) 0 0-10 % Neutrophils # (Auto) 6.2 1.8-7.8 X 10^3 Lymphocytes # (Auto) 1.3 1.0-4.0 X 10^3 Monocytes # (Auto) 1.0 0.0-1.0 X 10^3 Eosinophils # (Auto) 0.2 0.0-0.3 10^3/uL Basophils # (Auto) 0.0 0.0-0.1 10^3/uL Sodium Level 130 L 135-145 MMOL/L Potassium Level 4.3 3.6-5.0 MMOL/L Chloride Level 94 L 98-107 MMOL/L Carbon Dioxide Level 26 21-32 MMOL/L Anion Gap 10 5-14 MMOL/L Blood Urea Nitrogen 15 7-18 MG/DL Creatinine 0.66 0.60-1.30 MG/DL Estimat Glomerular Filtration Rate > 60 BUN/Creatinine Ratio 23 Glucose Level 111 H 70-105 MG/DL Calcium Level 8.2 L 8.5-10.1 MG/DL Corrected Calcium 8.8 8.5-10.1 MG/DL Total Bilirubin 0.8 0.1-1.0 MG/DL Aspartate Amino Transf (AST/SGOT) 14 5-34 U/L Alanine Aminotransferase (ALT/SGPT) 12 0-55 U/L Alkaline Phosphatase 51 40-136 U/L Total Protein 5.7 L 6.4-8.2 GM/DL Albumin 3.2 3.2-4.5 GM/DL working with PT/OT and standing at bedside reports minimal hip pain s/p L hip bipolar continue mobilizing Final Diagnosis feeling better L hip incision clean and dry. No calf tenderness s/p L hip bipolar continue PT/OT DC L hip brent[place] tomorrow SILKE BRAGG MD Jul 15, 2020 10:29
--- NOTE | 2020-07-15 10:29 | Cardiology Progress Note ---
Cardiology SOAP Progress Note Subjective: No cardiac complaints. Objective: I&O/Vital Signs 07/15/20 05:57 Temp 36.6 Pulse 73 Resp 18 B/P (MAP) 159/72 (101) Pulse Ox 97 O2 Delivery Room Air 07/15/20 00:00 Intake Total 700 ml Balance 700 ml Weight (Pounds): 129 Weight (Ounces): 8.0 Weight (Calculated Kilograms): 58.530163 Constitutional: AAO x 3, well-developed, well-nourished Respiratory: No accessory muscle use; other (good bilat air entry) Cardiovascular: regular rate-rhythm, S1 and S2, systolic murmur (soft SARAI at card base) Gastrointestional: No tender; soft; No guarding; audible bowel sounds Extremities: No clubbing, No cyanosis, No significant edema Neurologic/Psychiatric: oriented x 3, other (moves all limbs equally) Skin: No rash on exposed areas, No ulcerations on exposed areas A/P: Assessment/Dx: Labile hypertension and episodes of orthostatic hypotension (demonstrated during this hospitalization). Diltiazem d/c'd during this hospitalization Syncopal episode of undetermined etiology Jul 02, 2020, likely due to postural hypotension. No significant arrhythmia seen on ILR on 07/02/20 S/p L hip fracture repair per Dr. Woodward on Jul 02, 2020 following a syncopal fall S/p ILR on 03/24/20 (after syncope in March 2020) that has shown PAF w RVR w/o significant bradycardia so far Paroxysmal atrial flutter, first documented on tele strips on 02/11/18 Probable TIA on 02/11/18, resulting in transient R foot numbness/weakness leading to fall and fracture of the R 5th metatarsal, managed by her pcp Lena for stroke prophylaxis MPI of March 20, 2018 showed no evidence of ischemia or infarction. LVEF 80% Echocardiogram of February 12, 2018 showed LVEF 65-70%. Mild aortic regurg. Mod TR. PASP 35 mmHg. Trivial MR. Carotid u/s of 03/19/20 showed minimal bilat carotid plaque TSH normal (0.73) on lab work of 02/12/18 Plan: * Continue current regimen * Monitor labs from time to time Thank you for your consultation. Please call me if you have any questions. Eliana Knutson MD, FACP, FACC, FSCAI, FHRS, CCDS Interventional Cardiology Cardiac Electrophysiology Vascular Medicine and Endovascular Interventions Arturo KNUTSON MD Jul 15, 2020 10:29
[2020-07-15] MEDS: polyethylene glycoL POWDER 17 GM (MIRALAX) PACK PO SCH ×2 (10:57→21:18)
[2020-07-15] MEDS: SENNOSIDES 8.6 MG (SENOKOT) TAB PO SCH ×2 (10:57→21:21)
--- NOTE | 2020-07-15 11:21 | Physical Therapy Daily Note ---
PT Daily Note-Current Subjective Pt sitting in recliner with daughter upon arrival. Pt agrees to PT. Pain Numeric Pain Scale: 5-Moderate Pain Location: Right Location Body Site: Hip Pain Description: Ache Mental Status Patient Orientation: Person, Place, Situation Transfers SCALE: Activities may be completed with or without assistive devices. 7-Tpjsqzeyzw-lmksdlo completes the activity by him/herself with no assistance from a helper. 5-Set-up or Clean-up Assistance-helper sets up or cleans up; patient completes activity. [place] assists only prior to or following the activity. 4-Supervision or Touching Assistance-helper provides verbal cues and/or touching/steadying and/or contact guard assistance as patient completes activity. Assistance may be provided throughout the activity or intermittently. 3-Partial/Moderate Assistance-helper does LESS THAN HALF the effort. [place] lifts, holds or supports trunk or limbs, but provides less than half the effort. 2-Substantial/Maximal Assistance-helper does MORE THAN HALF the effort. [place] lifts or holds trunk or limbs and provides more than half the effort. 4-Kiagrnpss-wisgmu does ALL the effort. Patient does none of the effort to complete the activity. Or, the assistance of 2 or more helpers is required for the patient to complete the activity. If activity was not attempted, code reason: 7-Patient Refused. 9-Not Applicable-not attempted and the patient did not perform the activity before the current illness, exacerbation or injury. 10-Not Attempted due to Environmental Limitations-(lack of equipment, weather restraints, etc.). 88-Not Attempted due to Medical Conditions or Safety Concerns. Sit to Stand (QC): 5 Weight Bearing Right Lower Extremity: Right Weight Bearing/Tolerated Left Lower Extremity: Left Weight Bearing/Tolerated Gait Training Does the Patient Walk?: Yes Distance: 15' x2 Walk 10 feet (QC): 4 Gait Persons Needed: 1 Gait Assistive Device: FWW Pt is very apprehensive about walking. REPRODUCTIVE SURGEON & daughter give encouragement. Exercises Supine Ex: Ankle pumps, Quad Set, Glut sets, Heel Slides, Scooting, Hip abd/add Supine Reps: 15 Seated Therapy Exercises: Sit to stand Treatments Pt completes Supine Ex with instruction given to pt & daughter. Pt takes RB as needed. REPRODUCTIVE SURGEON gives pt education over pain management, reviews Hip Precautions and expectations for ARU/mtg details for next week. Pt transfers to standing and amb. across room and back to recliner to rest. Pt has all needs met, call light in hand. Assessment Current Status: Fair Progress Pt self limits due to pain and cognition/retention of expectations for ARU. PT Short Term Goals Short Term Goals Time Frame: Jul 25, 2020 Roll Left & Right: 3 Sit to lyin Lying to sitting on side of be: 3 Sit to stand: 3 Chair/cmh-cy-kbpfn transfer: 3 Toilet transfer: 3 Car transfer: 3 Walk 10 feet: 3 Walk 50 feet with two turns: 3 Walk 150 feet: 3 Walking 10ft on uneven surface: 3 PT Strategic Partnership Specialist Goals Residential Goals PT Strategic Partnership Specialist Goals Time Frame: Aug 08, 2020 Roll Left & Right (QC): 5 Sit to Lying (QC): 5 Lying-Sitting on Side/Bed(QC): 5 Sit to Stand (QC): 5 Chair/Niw-ul-Mxxow Xfer(QC): 5 Toilet Transfer (QC): 5 Car Transfer (QC): 5 Does the Patient Walk: Yes Walk 10 feet (QC): 5 Walk 50ft with 2 Turns (QC): 5 Walk 150 ft (QC): 5 Walking 10ft on Uneven Surface: 5 1 Step (curb) (QC): 4 4 Steps (QC): 9 12 Steps (QC): 9 Picking up an Object (QC): 5 Wheel 50 feet with 2 turns (QC: 5 (if deemed necessary by therapy team) Type: Manual Wheel 150 feet: 5 Type: Manual PT Plan Problem List Problem List: Activity Tolerance, Functional Strength, Gait Treatment/Plan Treatment Plan: Continue Plan of Care Treatment Plan: Bed Mobility, Concurrent Therapy, Education, Functional Activity Syl, Functional Strength, Group Therapy, Gait, Safety, Therapeutic Ex ercise, Transfers Treatment Duration: Aug 08, 2020 Frequency: Modified Program (IRF) (intensity waiver) Estimated Hrs Per Day: 1 hour per day (increase as tolerated) Patient and/or Family Agrees t: Yes Safety Risks/Education Patient Education: Gait Training, Transfer Techniques, Reviewed Precautions, Correct Positioning, Safety Issues Teaching Recipient: Patient Teaching Methods: Discussion Response to Teaching: Verbalize Understanding Time/GCodes Time In: 1000 Time Out: 1100 Total Billed Treatment Time: 60 Total Billed Treatment 1, EX x2 (30m), FA (15m) & GT (15m) DUNCAN JACOBS REPRODUCTIVE SURGEON Jul 15, 2020 11:21
--- NOTE | 2020-07-15 12:10 | NUR ---
"RD ASSESSMENT PMHx: afib; HTN PT INTERACTION: Pt was awake and pleasant during nutrition follow-up. Pt states she has been eating okay since last assessment. Note avg PO intake 50-75% meals, per chart review. Pt states some issues with nausea, vomiting, and diarrhea since last assessment. Note last BM was 07/14, and pt currently on bowel regimen of colace BID; senna BID; and miralax BID, per chart review. ABNORMAL NUTRITION-RELATED LAB VALUES LOW: cr 0.57; Ca 8.2; Pro 5.6; alb 3.1 HIGH: Est. kcal needs: 1625 kcal | 25 kcal/kg Est. Pro needs: 52 g Pro | 0.8 g Pro/kg PES STATEMENT: Inadequate oral intake (NI-2.1) related to loss of appetite | nausea | vomiting | diarrhea as evidenced by pt interview | avg PO intake 50-75% meals INTERVENTION: Continue with current diet order of DYS2 Mechanically Altered diet. Pt may benefit from diet advancement to Regular diet, with ground meat. Pt states that while she is missing teeth, she can chew and swallow her food. This change could improve PO intake. Pt may benefit from nutrition supplementation if PO intake declines. Note pt is lactose intolerant, and note that Ensure Enlive is appropriate for pts with lactose intolerance. Encouraged pt to eat when able. Will continue to follow and reassess as pt needs, intake, and status change. MONITOR/EVALUATE: PO Intake; Plan of Care; Hydration Status; Weight Status; Lab Values Stephanie Andrews, MS, RD, LD"
--- NOTE | 2020-07-15 13:49 | Occupational Ther Daily Note ---
OT Current Status-Daily Note Subjective Pt seated in recliner, daughter present. Pt agreeable to OT tx. Mental Status/Objective Patient Orientation: Person ADL-Treatment Therapy Code Descriptions/Definitions Functional [place] Measure: 0=Not Assessed/NA 4=Minimal Assistance 1=Total Assistance 5=Supervision or Setup 2=Maximal Assistance 6=Modified [place] 3=Moderate Assistance 7=Complete IndependenceSCALE: Activities may be completed with or without assistive devices. 4-Vbmfcbxyoq-psulhgk completes the activity by him/herself with no assistance from a helper. 5-Set-up or Clean-up Assistance-helper sets up or cleans up; patient completes activity. [place] assists only prior to or following the activity. 4-Supervision or Touching Assistance-helper provides verbal cues and/or touching/steadying and/or contact guard assistance as patient completes activity. Assistance may be provided throughout the activity or intermittently. 3-Partial/Moderate Assistance-helper does LESS THAN HALF the effort. [place] lifts, holds or supports trunk or limbs, but provides less than half the effort. 2-Substantial/Maximal Assistance-helper does MORE THAN HALF the effort. [place] lifts or holds trunk or limbs and provides more than half the effort. 0-Dpyssjkph-wsxahg does ALL the effort. Patient does none of the effort to complete the activity. Or, the assistance of 2 or more helpers is required for the patient to complete the activity. If activity was not attempted, code reason: 7-Patient Refused. 9-Not Applicable-not attempted and the patient did not perform the activity before the current illness, exacerbation or injury. 10-Not Attempted due to Environmental Limitations-(lack of equipment, weather restraints, etc.). 88-Not Attempted due to Medical Conditions or Safety Concerns. Toileting Hygiene (QC): 2 (Assistance donning/doffing tab style brief due to incontinent BM. Pt able to manage pants up/down and perform hygiene.) Toilet Transfer (QC): 4 (CGA on/off BSC over toilet) Other Treatment Pt seated in recliner stating she should probably use the restroom. Pt stood from recliner CGA, then ambulated to bathroom using FWW, CGA. During walk to bathroom, pt reports she feels like she had a BM already and unable to control bowels. Once at [facility], pt managed pants down, OT assisted with doffing brief due to incontinence of BM. Pt then completed toileting/hygiene and OT assisted with donning new tab style brief, pt able to manage pants up and return to recliner. Pt's daughter present, OT educated daughter on AE and demo'd how to use each item of hip kit. Daughter verbalized understanding. Post OT Tx, pt seated in recliner, call light in reach and all needs met. Education OT Patient Education: Correct positioning, Modified ADL techniques, Progress toward Goal/Update tx plan, Purpose of tx/functional activities, Safety issues, Transfer techniques, Use of adapted equipment Teaching Recipient: Patient, Family Teaching Methods: Demonstration, Discussion Response to Teaching: Verbalize Understanding OT Short Term Goals Short Term Goals Time Frame: Jul 21, 2020 Oral hygiene: 5 Toileting hygiene: 3 Shower/bathe self: 3 Upper body dressin Lower body dressin Putting on/taking off footwear: 3 OT Group Home Goals Supervising Floorperson Goals Time Frame: Aug 04, 2020 Eating (QC): 6 Oral Hygiene (QC): 6 Toileting Hygiene (QC): 6 Shower/Bathe Self (QC): 6 Upper Body Dressing (QC): 6 Lower Body Dressing (QC): 6 On/Off Footwear (QC): 6 Additional Goals: 1-Demonstrate ADL Tasks, 2-Verbalize Understanding, 3- ImproveStrength/Syl 1=Demonstrate adherence to instructed precautions during ADL tasks. 2=Patient will verbalize/demonstrate understanding of assistive devices/modifications for ADL. 3=Patient will improve strength/tolerance for activity to enable patient to perform ADL's. OT Education/Plan Problem List/Assessment Assessment: Decreased Activ Tolerance, Decreased UE Strength, Impaired Funct Balance, Impaired I ADL's, Impaired Self-Care Skills Discharge Recommendations Plan/Recommendations: Continue POC Treatment Plan/Plan of Care Patient would benefit from OT for education, treatment and training to promote independence in ADL's, mobility, safety and/or upper extremity function for ADL's. Plan of Care: ADL Retraining, Functional Mobility, Group Exercise/Act as Ind, UE Funct Exercise/Act Treatment Duration: Aug 04, 2020 Frequency: Modified Program (IRF) (27/05) Estimated Hrs Per Day: 1.5 hours per day Rehab Potential: Fair Time/GCodes Start Time: 13:00 Stop Time: 13:30 Total Time Billed (hr/min): 30 Billed Treatment Time 1, ADL 2 FRITZ MUIR OT Jul 15, 2020 13:49
--- NOTE | 2020-07-15 14:00 | NUR ---
CM/SS PATIENT CARE CONFERENCE Summary reviewed with patient and her daughter Flory Beard who is here from [place], [place]. Both are in agreement to patient's target discharge of Wednesday, July 22, 2020. Patient plans to return home as before with additional care and oversight from family during continued recuperation. HHC: Recommended by team for RN, PT, OT. Medicare compare discussed with patient for agencies in her service area. Patient has history with [facility] and requested her post hospital home health be set up with them. DME: Patient and family understand the recommendation for a hip kit and that this is a private pay item. They will have this ready for patient's return home.
--- NOTE | 2020-07-15 14:30 | Physical Therapy Daily Note ---
PT Daily Note-Current Subjective Pt sitting in recliner with feet up, visiting with daughter upon arrival. Pt agrees to PT for ambulation. Pain Numeric Pain Scale: 5-Moderate Pain Location: Left Location Body Site: Hip Pain Description: Ache Mental Status Patient Orientation: Person, Place, Situation Transfers SCALE: Activities may be completed with or without assistive devices. 3-Ljbjcvcifc-qemawrg completes the activity by him/herself with no assistance from a helper. 5-Set-up or Clean-up Assistance-helper sets up or cleans up; patient completes activity. [place] assists only prior to or following the activity. 4-Supervision or Touching Assistance-helper provides verbal cues and/or touching/steadying and/or contact guard assistance as patient completes activity. Assistance may be provided throughout the activity or intermittently. 3-Partial/Moderate Assistance-helper does LESS THAN HALF the effort. [place] lifts, holds or supports trunk or limbs, but provides less than half the effort. 2-Substantial/Maximal Assistance-helper does MORE THAN HALF the effort. [place] lifts or holds trunk or limbs and provides more than half the effort. 2-Mzdfbxiqj-vbqell does ALL the effort. Patient does none of the effort to complete the activity. Or, the assistance of 2 or more helpers is required for the patient to complete the activity. If activity was not attempted, code reason: 7-Patient Refused. 9-Not Applicable-not attempted and the patient did not perform the activity before the current illness, exacerbation or injury. 10-Not Attempted due to Environmental Limitations-(lack of equipment, weather restraints, etc.). 88-Not Attempted due to Medical Conditions or Safety Concerns. Sit to Lying (QC): 4 Sit to Stand (QC): 5 Weight Bearing Right Lower Extremity: Right Weight Bearing/Tolerated Left Lower Extremity: Left Weight Bearing/Tolerated Gait Training Does the Patient Walk?: Yes Distance: 60' x2 Walk 10 feet (QC): 4 Walk 50 ft with 2 Turns(QC): 4 Gait Persons Needed: 1 Gait Assistive Device: FWW Pt walks gingerly on L LE. SELF RISING FLOUR MIXER encourages to WBAT. Wheelchair Training Does the Pt Use a Wheelchair?: No Treatments Pt transfers to standing then amb. in hallway. Pt returns to room and asks to transfer to bed. SELF RISING FLOUR MIXER assists with guiding L LE into bed. SELF RISING FLOUR MIXER assists with repositioning in bed to comfort. Pt has all needs met, call light in hand. Assessment Current Status: Fair Progress Pt self limits due to fatigue and discomfort as reported by pt. PT Short Term Goals Short Term Goals Time Frame: Jul 25, 2020 Roll Left & Right: 3 Sit to lyin Lying to sitting on side of be: 3 Sit to stand: 3 Chair/lxl-ed-wsdwc transfer: 3 Toilet transfer: 3 Car transfer: 3 Walk 10 feet: 3 Walk 50 feet with two turns: 3 Walk 150 feet: 3 Walking 10ft on uneven surface: 3 PT Prize Fighter Goals Group Home Goals PT Group Home Goals Time Frame: Aug 08, 2020 Roll Left & Right (QC): 5 Sit to Lying (QC): 5 Lying-Sitting on Side/Bed(QC): 5 Sit to Stand (QC): 5 Chair/Opm-zx-Qnvii Xfer(QC): 5 Toilet Transfer (QC): 5 Car Transfer (QC): 5 Does the Patient Walk: Yes Walk 10 feet (QC): 5 Walk 50ft with 2 Turns (QC): 5 Walk 150 ft (QC): 5 Walking 10ft on Uneven Surface: 5 1 Step (curb) (QC): 4 4 Steps (QC): 9 12 Steps (QC): 9 Picking up an Object (QC): 5 Wheel 50 feet with 2 turns (QC: 5 (if deemed necessary by therapy team) Type: Manual Wheel 150 feet: 5 Type: Manual PT Plan Problem List Problem List: Activity Tolerance, Functional Strength, Gait Treatment/Plan Treatment Plan: Continue Plan of Care Treatment Plan: Bed Mobility, Concurrent Therapy, Education, Functional Activity Syl, Functional Strength, Group Therapy, Gait, Safety, Therapeutic Exercise, Transfers Treatment Duration: Aug 08, 2020 Frequency: Modified Program (IRF) (intensity waiver) Estimated Hrs Per Day: 1 hour per day (increase as tolerated) Patient and/or Family Agrees t: Yes Safety Risks/Education Patient Education: Gait Training, Correct Positioning, Safety Issues Teaching Recipient: Patient, Family Teaching Methods: Discussion Response to Teaching: Verbalize Understanding Time/GCodes Time In: 1330 Time Out: 1400 Total Billed Treatment Time: 30 Total Billed Treatment 1, GT (15m) & FA (15m) DUNCAN JACOBS SELF RISING FLOUR MIXER Jul 15, 2020 14:30
[2020-07-15] MEDS: IRON SUCROSE 200 MG/10 ML (VENOFER) VIAL IV SCH (17:19)
[2020-07-15 17:35] VITALS: BP 144/65
--- NOTE | 2020-07-15 18:47 | NUR ---
Pt voided 300cc, Bladder Scan showed 0cc. Resting in bed now, denies needs or c/o's.
--- NOTE | 2020-07-15 19:22 | NUR ---
bedside report received from IGNACIO WEIR, assume care of pt
[2020-07-15] MEDS: ALPRAZolam 0.25 MG (XANAX) TAB PO SCH (21:17)
[2020-07-15] MEDS: oxyCODONE/APAP 5/325MG (PERCOCET 5) TABLET PO PRN (21:18)
--- NOTE | 2020-07-15 21:18 | NUR ---
pt took miralax but refused Colace & Senokot, c/o lt hip pain level 5/10 on numeric scale, Percocet 5/325 1 tab given
--- NOTE | 2020-07-15 22:00 | NUR ---
pt rates pain level 2/10 on numeric scale
[2020-07-16 05:12] VITALS: BP 150/67
--- NOTE | 2020-07-16 05:33 | PM&R Progress Note ---
Subjective HPI/CC On Admission Date Seen by Provider: Jul 16, 2020 Time Seen by Provider: 09:00 Subjective/Events-last exam 07/16/20: Pt doing pretty well Poor motivation which is chronic Will have a shower today which is a big event for her Bowels moved yesterday Overall doing pretty well 07/15/20: Refuses to turn during the night Tylenol given last night BP is orthostatic as usual Had a BM yesterday 07/14/20: Had a large BM yesterday Doing very well today Going to try to dress herself today Had a little bit of emesis yesterday before a large bowel movement 07/13/20: Pt having a good day Participating in therapy a little bit more today She self limits Wheelchair bound status is likely the result Eating and drinking well Completing iron infusions 07/12/20: Patient feels pretty good Self limiting is chronic issue No pain reported except hip No falls 07/11/20: Patient doing better today and participated in therapy more Wheelchair bound status likely the end plan No pain IV iron giving her a boost 07/10/20: Midline was placed and it works well IV iron ordered Bowels moved yesterday Consulting Dr. Schmitz for pessary 07/09/20: Pt had a pretty good night She is in chronic AF, heart rate of 70s so rate controlled Dressing changes looked really good Bowels moved yesterday Pt doing pretty well Hgb 9.1 Sleepiness noted Sodium level 130 Bowels moved yesterday Incontinent after brown was discontinued Conferred with RN Checked meds and labs Review of Systems General: Fatigue, Malaise Neurological: Weakness Objective Exam Vital Signs Vital Signs Date Time Temp Pulse Resp B/P (MAP) Pulse Ox O2 Delivery O2 Flow Rate FiO2 07/16/20 17:52 36.1 80 16 152/69 (96) 98 Room Air Capillary Refill : Less Than 3 SecondsLess Than 3 Seconds General Appearance: No Apparent Distress, WD/WN, Chronically ill, Thin HEENT: PERRL/EOMI, Normal ENT Inspection, Pharynx Normal Neck: Full Range of Motion, Normal Inspection, Non Tender, Supple, Carotid Bruit Respiratory: Chest Non Tender, Lungs Clear, Normal Breath Sounds, No Accessory Muscle Use, No Respiratory Distress Cardiovascular: Regular Rate, Rhythm, No Edema, No Gallop, No JVD, No Murmur, Normal Peripheral Pulses, Irregularly Irregular Gastrointestinal: Normal Bowel Sounds, No Organomegaly, No Pulsatile Mass, Non Tender, Soft Back: Normal Inspection, No CVA Tenderness, No Vertebral Tenderness Extremity: Normal Capillary Refill, Normal Inspection, Normal Range of Motion, Non Tender, No Calf Tenderness, No Pedal Edema Neurologic/Psychiatric: Alert, Oriented x3, No Motor/Sensory Deficits, Normal Mood/Affect, test man II-XII Norm as Tested, Motor Weakness (left leg limited ROM due to pain) Skin: Normal Color, Warm/Dry Lymphatic: No Adenopathy Results/Procedures Lab Patient resulted labs reviewed. FIM Transfers Therapy Code Descriptions/Definitions Functional [place] Measure: 0=Not Assessed/NA 4=Minimal Assistance 1=Total Assistance 5=Supervision or Setup 2=Maximal Assistance 6=Modified [place] 3=Moderate Assistance 7=Complete IndependenceSCALE: Activities may be completed with or without assistive devices. 8-Tvbkgkoogx-cbqkkya completes the activity by him/herself with no assistance from a helper. 5-Set-up or Clean-up Assistance-helper sets up or cleans up; patient completes activity. [place] assists only prior to or following the activity. 4-Supervision or Touching Assistance-helper provides verbal cues and/or touching/steadying and/or contact guard assistance as patient completes activity. Assistance may be provided throughout the activity or intermittently. 3-Partial/Moderate Assistance-helper does LESS THAN HALF the effort. [place] lifts, holds or supports trunk or limbs, but provides less than half the effort. 2-Substantial/Maximal Assistance-helper does MORE THAN HALF the effort. [place] lifts or holds trunk or limbs and provides more than half the effort. 5-Lggeyubdb-tawskg does ALL the effort. Patient does none of the effort to complete the activity. Or, the assistance of 2 or more helpers is required for the patient to complete the activity. If activity was not attempted, code reason: 7-Patient Refused. 9-Not Applicable-not attempted and the patient did not perform the activity before the current illness, exacerbation or injury. 10-Not Attempted due to Environmental Limitations-(lack of equipment, weather restraints, etc.). 88-Not Attempted due to Medical Conditions or Safety Concerns. Roll Left to Right (QC): 1 Sit to Lying (QC): 4 Sit to Stand (QC): 5 Chair/Yzn-zb-Vdqwb Xfer(QC): 4 Car Transfer (QC): 88 (patient having episode of orthostatic hypotension (not safe to perform on this date)) Gait Training Does the Patient Walk?: Yes Distance: 60' x2 Walk 10 feet (QC): 4 Walk 50 ft with 2 Turns(QC): 4 Walk 150 ft (QC): 7 Walking 10ft/uneven surface-QC: 88 Gait Persons Needed: 1 Gait Assistive Device: FWW Wheelchair Training Does the Pt Use a Wheelchair?: No Wheel 50 ft with 2 turns (QC): 4 Wheel 150 ft (QC): 88 Type of Wheelchair: Manual Stair Training 1 Step (curb) (QC): 88 4 Steps (QC): 9 12 Steps (QC): 9 Balance Picking up an Object (QC): 88 ADL-Treatment Eating (QC): 6 (Pt reports no difficulties eating lunch) Oral Hygiene (QC): 7 (Pt declined, stating she does not want to put her dentures in while here.) Bathing Location: L Arm, R Arm, L Upper Leg, R Upper Leg, Chest, Abdomen, Perineal Area Shower/Bathe Self (QC): 4 (CGA during stand at W to clean periarea and buttocks. OT educated pt on using long handled sponge to wash BLEs.) Upper Body Dressing (QC): 5 (set up ) Lower Body Dressing (QC): 3 (Pt required cues for sequencing to don pants with wire rope fabrication supervisor, pt got pants up but ended up having them on backwards. OT assisted pt with correcting error. CGA during stand at [facility] as pt completed pant hike.) On/Off Footwear (QC): 3 (Pt able to doff socks using wire rope fabrication supervisor with min cues, OT handed pt sock aide but pt had poor carryover of task requiring cues as to what sock aide is used for and cues for sequencing.) Toileting Hygiene (QC): 2 (Assistance donning/doffing tab style brief due to incontinent BM. Pt able to manage pants up/down and perform hygiene.) Toilet Transfer (QC): 4 (CGA on/off BSC over toilet) Assessment/Plan Assessment and Plan Assess & Plan/Chief Complaint Assessment per Cardiology assessment with my modifications: Labile hypertension and episodes of orthostatic hypotension (demonstrated during this hospitalization). Diltiazem d/c'd during this hospitalization Syncopal episode of undetermined etiology Jul 02, 2020, likely due to postural hypotension. No significant arrhythmia seen on ILR on 07/02/20 S/P L hip fracture repair per Dr. Woodward on Jul 02, 2020 following a syncopal fall S/P ILR on 03/24/20 (after syncope in March 2020) that has shown PAF w RVR w/o significant bradycardia so far Paroxysmal atrial flutter, first documented on tele strips on 02/11/18 Probable TIA on 02/11/18, resulting in transient R foot numbness/weakness leading to fall and fracture of the R 5th metatarsal, managed by her pcp Lena for stroke prophylaxis MPI of March 20, 2018 showed no evidence of ischemia or infarction. LVEF 80% Echocardiogram of February 12, 2018 showed LVEF 65-70%. Mild aortic regurg. Mod TR. PASP 35 mmHg. Trivial MR. Carotid u/s of 03/19/20 showed minimal bilat carotid plaque TSH normal (0.73) on lab work of 02/12/18 Plan: Because of demonstration of orthostatic hypotension, we have stopped long-acting dilt and are using dig for vent rate control during episodes of AF Continue OAC with Eliquis for stroke prophylaxis Monitor labs from time to time IRF protocol Pain control BM regimen 07/08/20: Monitor incontinence Monitor sleepiness Monitor sodium level 07/09/20: Monitor blood pressure Appreciate cardiology Orthostatic hypotension likely will require wheelchair permanently due to fall risk 07/10/20: Maintain iron infusion Maintain midline Bowel regimen Consult gynecology for pessary 07/11/20: Monitor rectal prolapse Monitor BP and orthostasis 07/12/20: Monitor pain Check labs in am Monitor orthostasis 07/13/20: Complete iron infusion Dressing change per ortho Continue to motivate patient to participate 07/14/20: Continue bowel regimen Increase independence with ADL Monitor for emesis recurrence 07/15/20: Continue all therapy Team conference to decide on disposition discharge Monitor closely 07/16/20: Encourage motivation to participate in therapy Maintain bowel regimen Seems to be getting back to baseline (1) Closed left hip fracture Status: Acute (2) Fall Status: Acute (3) Syncope Status: Acute (4) Orthostatic hypotension (5) GERD (gastroesophageal reflux disease) Status: Chronic (6) Anxiety Status: Chronic (7) Atrial fibrillation with controlled ventricular rate JOVANI CAVAZOS DO Jul 16, 2020 05:33
[2020-07-16] MEDS: CATHETER FLUSH 10 ML SYR IV SCH ×3 (06:46→21:33)
[2020-07-16] MEDS: ACETAMINOPHEN 325 MG TABLET PO PRN ×2 (06:47→11:03)
--- NOTE | 2020-07-16 06:47 | NUR ---
c/o lt hip pain level 5/10 on numeric scale, requests Tylenol, Tylenol 650mg given
--- NOTE | 2020-07-16 07:15 | NUR ---
rates pain level 3/10 on numeric scale
[2020-07-16] MEDS: DOCUSATE SODIUM 100 MG (COLACE) CAP PO SCH ×2 (09:35→21:32)
[2020-07-16] MEDS: APIXABAN 5 MG (ELIQUIS) TABLET PO SCH ×2 (09:35→21:07)
[2020-07-16] MEDS: SENNOSIDES 8.6 MG (SENOKOT) TAB PO SCH ×2 (09:35→21:32)
[2020-07-16] MEDS: DIGOXIN 0.125 MG (LANOXIN) TAB PO SCH (09:35)
[2020-07-16] MEDS: FLUDROCORTISONE 0.1 MG (FLORINEF) TAB PO SCH (09:35)
[2020-07-16] MEDS: PANTOPRAZOLE 20 MG TABLET (PROTONIX) PO SCH (09:35)
[2020-07-16] MEDS: polyethylene glycoL POWDER 17 GM (MIRALAX) PACK PO SCH ×2 (09:35→21:07)
--- NOTE | 2020-07-16 11:05 | Occupational Ther Daily Note ---
OT Current Status-Daily Note Subjective Pt laying in bed, agreeable to OT/PT cotreat with focus on showering, pt reports fear of falling. Pt did not verbalize pain rating during tx, but does report pain in L hip with movement. Mental Status/Objective Patient Orientation: Person ADL-Treatment Therapy Code Descriptions/Definitions Functional [place] Measure: 0=Not Assessed/NA 4=Minimal Assistance 1=Total Assistance 5=Supervision or Setup 2=Maximal Assistance 6=Modified [place] 3=Moderate Assistance 7=Complete IndependenceSCALE: Activities may be completed with or without assistive devices. 2-Uacmxflzzs-unapxhd completes the activity by him/herself with no assistance from a helper. 5-Set-up or Clean-up Assistance-helper sets up or cleans up; patient completes activity. [place] assists only prior to or following the activity. 4-Supervision or Touching Assistance-helper provides verbal cues and/or touching/steadying and/or contact guard assistance as patient completes activity. Assistance may be provided throughout the activity or intermittently. 3-Partial/Moderate Assistance-helper does LESS THAN HALF the effort. [place] lifts, holds or supports trunk or limbs, but provides less than half the effort. 2-Substantial/Maximal Assistance-helper does MORE THAN HALF the effort. [place] lifts or holds trunk or limbs and provides more than half the effort. 9-Vorpbeydr-otcmuo does ALL the effort. Patient does none of the effort to complete the activity. Or, the assistance of 2 or more helpers is required for the patient to complete the activity. If activity was not attempted, code reason: 7-Patient Refused. 9-Not Applicable-not attempted and the patient did not perform the activity before the current illness, exacerbation or injury. 10-Not Attempted due to Environmental Limitations-(lack of equipment, weather restraints, etc.). 88-Not Attempted due to Medical Conditions or Safety Concerns. Eating (QC): 6 Shower/Bathe Self (QC): 3 (Pt required min A with balance during stand at GBs as she washed periarea and buttocks. Verbal cue to use long handled sponge in order to maintain hip precations) Upper Body Dressing (QC): 5 (set up ) Lower Body Dressing (QC): 3 (Pt required verbal cues on using AE in order to maintain hip precautions, min A during stand at GBs for standing balance) On/Off Footwear: 2 (Pt required verbal cue on how to use AE, max assist with donning socks due to difficulty getting foot into sock aide and difficulty pulling sock aide up.) Toileting Hygiene (QC): 4 (CGA) Toilet Transfer (QC): 4 (CGA) Other Treatment OT/PT cotreat due to skill of 2 clinicians required that a vocational rehabilitation supervisor could not perform in order to coordinate UE/LE during tx and due to pt's increased risk of falling with task, decreased functional mobility, pain, and cues required for sequencing and safety. OT focused on ADLs, UE placement, cues for sequencing and safety, while PT focused on LE placement, overall gross movements, transfers, and standing balance with tasks. Pt transferred supine to sit EOB with min A of LLE, she then stood at FWW and transferred onto [facility] over toilet to complete toileting. Pt transferred to [place] with CGA, during transfer pt states "do not let me fall", she has expressed she is scared of showering when she gets home because she does not want to fall again. Pt sat at [place], doffed clothes, then OT assisted pt with shower. OT/PT assisted pt during stand due to pt's fear of falling, pt required min A with standing balance at [facility] while cleansing periarea and buttocks, pt indicates she feels safer with OT/PT there. Pt completed shower, then dressing at [place], taking breaks as needed. Pt required min A and verbal cues with using AE for LE dressing due to poor carryover between txs. Pt transferred to the recliner. Post OT/PT cotreat, pt seated at recliner, call light in reach and all needs met. Education OT Patient Education: Correct positioning, Energy conservation, Modified ADL techniques, Progress toward Goal/Update tx plan, Purpose of tx/functional activities, Safety issues, Transfer techniques, Use of adapted equipment Teaching Recipient: Patient Teaching Methods: Discussion Response to Teaching: Verbalize Understanding OT Short Term Goals Short Term Goals Time Frame: Jul 21, 2020 Oral hygiene: 5 Toileting hygiene: 3 Shower/bathe self: 3 Upper body dressin Lower body dressin Putting on/taking off footwear: 3 OT [facility] Goals Dumpster Driver Goals Time Frame: Aug 04, 2020 Eating (QC): 6 Oral Hygiene (QC): 6 Toileting Hygiene (QC): 6 Shower/Bathe Self (QC): 6 Upper Body Dressing (QC): 6 Lower Body Dressing (QC): 6 On/Off Footwear (QC): 6 Additional Goals: 1-Demonstrate ADL Tasks, 2-Verbalize Understanding, 3- ImproveStrength/Syl 1=Demonstrate adherence to instructed precautions during ADL tasks. 2=Patient will verbalize/demonstrate understanding of assistive devices/modifications for ADL. 3=Patient will improve strength/tolerance for activity to enable patient to perform ADL's. OT Education/Plan Problem List/Assessment Assessment: Decreased Activ Tolerance, Decreased UE Strength, Impaired Bed Mobility, Impaired I ADL's, Impaired Self-Care Skills Discharge Recommendations Plan/Recommendations: Continue POC Treatment Plan/Plan of Care Patient would benefit from OT for education, treatment and training to promote independence in ADL's, mobility, safety and/or upper extremity function for ADL's. Plan of Care: ADL Retraining, Functional Mobility, Group Exercise/Act as Ind, UE Funct Exercise/Act Treatment Duration: Aug 04, 2020 Frequency: Modified Program (IRF) (27/05) Estimated Hrs Per Day: 1.5 hours per day Rehab Potential: Fair Time/GCodes Start Time: 10:00 Stop Time: 11:00 Total Time Billed (hr/min): 60 Billed Treatment Time OT/PT cotreat x60 mins 1, ADL 4 FRITZ MUIR OT Jul 16, 2020 11:05
--- NOTE | 2020-07-16 11:06 | Physical Therapy Daily Note ---
PT Daily Note-Current Subjective Pt laying Supine in bed upon arrival. Pt agrees to PT/OT co-treat for showering. Pain Numeric Pain Scale: 8 Location: Left Location Body Site: Hip Pain Description: Ache Mental Status Patient Orientation: Person, Place, Situation Transfers SCALE: Activities may be completed with or without assistive devices. 2-Sqokpneurm-ezxhqjv completes the activity by him/herself with no assistance from a helper. 5-Set-up or Clean-up Assistance-helper sets up or cleans up; patient completes activity. [place] assists only prior to or following the activity. 4-Supervision or Touching Assistance-helper provides verbal cues and/or touching/steadying and/or contact guard assistance as patient completes activity. Assistance may be provided throughout the activity or intermittently. 3-Partial/Moderate Assistance-helper does LESS THAN HALF the effort. [place] lifts, holds or supports trunk or limbs, but provides less than half the effort. 2-Substantial/Maximal Assistance-helper does MORE THAN HALF the effort. [place] l ifts or holds trunk or limbs and provides more than half the effort. 7-Vxjmhenaa-jiskrb does ALL the effort. Patient does none of the effort to complete the activity. Or, the assistance of 2 or more helpers is required for the patient to complete the activity. If activity was not attempted, code reason: 7-Patient Refused. 9-Not Applicable-not attempted and the patient did not perform the activity before the current illness, exacerbation or injury. 10-Not Attempted due to Environmental Limitations-(lack of equipment, weather restraints, etc.). 88-Not Attempted due to Medical Conditions or Safety Concerns. Lying to Sitting/Side of Bed(Q: 4 Sit to Stand (QC): 4 Weight Bearing Right Lower Extremity: Right Weight Bearing/Tolerated Left Lower Extremity: Left Weight Bearing/Tolerated Gait Training Does the Patient Walk?: Yes Distance: 15' x2 Walk 10 feet (QC): 4 Gait Persons Needed: 1 Gait Assistive Device: FWW Treatments OT/PT cotreat due to skill of 2 clinicians required that a central supply tech could not perform in order to coordinate UE/LE during tx and due to pt's increased risk of falling with task, decreased functional mobility, pain, and cues required for sequencing and safety. OT focused on ADLs, UE placement, cues for sequencing and safety, while PT focused on LE placement, overall gross movements, transfers, and standing balance with tasks. Pt transferred supine to sit EOB with min A of LLE, she then stood at FWW and transferred onto [facility] over toilet to complete toileting. Pt transferred to [place] with CGA, during transfer pt states "do not let me fall", she has expressed she is scared of showering when she gets home because she does not want to fall again. Pt sat at [place], doffed clothes, then OT assisted pt with shower. OT/PT assisted pt during stand due to pt's fear of falling, pt required min A with standing balance at [facility] while cleansing periarea and buttocks, pt indicates she feels safer with OT/PT there. Pt completed shower, then dressing at [place], taking breaks as needed. Pt required min A and verbal cues with using AE for LE dressing due to poor carryover between txs. Pt transferred to the recliner. Post OT/PT cotreat, pt seated at recliner, call [place] in reach and all needs met. Assessment Current Status: Fair Progress Pt needs VC for Hip Precautions and to encourage pt to try tasks more independently. PT Short Term Goals Short Term Goals Time Frame: Jul 25, 2020 Roll Left & Right: 3 Sit to lyin Lying to sitting on side of be: 3 Sit to stand: 3 Chair/ptd-to-mzhtg transfer: 3 Toilet transfer: 3 Car transfer: 3 Walk 10 feet: 3 Walk 50 feet with two turns: 3 Walk 150 feet: 3 Walking 10ft on uneven surface: 3 PT Jaw Skinner Goals Jaw Skinner Goals PT Jaw Skinner Goals Time Frame: Aug 08, 2020 Roll Left & Right (QC): 5 Sit to Lying (QC): 5 Lying-Sitting on Side/Bed(QC): 5 Sit to Stand (QC): 5 Chair/Qfr-dm-Mkmaj Xfer(QC): 5 Toilet Transfer (QC): 5 Car Transfer (QC): 5 Does the Patient Walk: Yes Walk 10 feet (QC): 5 Walk 50ft with 2 Turns (QC): 5 Walk 150 ft (QC): 5 Walking 10ft on Uneven Surface: 5 1 Step (curb) (QC): 4 4 Steps (QC): 9 12 Steps (QC): 9 Picking up an Object (QC): 5 Wheel 50 feet with 2 turns (QC: 5 (if deemed necessary by therapy team) Type: Manual Wheel 150 feet: 5 Type: Manual PT Plan Problem List Problem List: Activity Tolerance, Functional Strength, Safety, Balance, Gait Treatment/Plan Treatment Plan: Continue Plan of Care Treatment Plan: Bed Mobility, Concurrent Therapy, Education, Functional Activity Syl, Functional Strength, Group Therapy, Gait, Safety, Therapeutic Exercise, Transfers Treatment Duration: Aug 08, 2020 Frequency: Modified Program (IRF) (intensity waiver) Estimated Hrs Per Day: 1 hour per day (increase as tolerated) Patient and/or Family Agrees t: Yes Safety Risks/Education Patient Education: Gait Training, Transfer Techniques, Reviewed Precautions, Correct Positioning, Safety Issues Teaching Recipient: Patient Teaching Methods: Discussion Response to Teaching: Verbalize Understanding Time/GCodes Time In: 1000 Time Out: 1100 Total Billed Treatment Time: 60 Total Billed Treatment 1, FA x4 (60m) Co-treat w/OT for 60m ([id number]) DUNCAN JACOBS PTA Jul 16, 2020 11:06
[2020-07-16] MEDS: oxyCODONE/APAP 5/325MG (PERCOCET 5) TABLET PO PRN ×3 (13:19→21:14)
--- NOTE | 2020-07-16 13:40 | Physical Therapy Daily Note ---
PT Daily Note-Current Subjective Pt sitting in recliner upon arrival. Pt agrees to PT. Pain Numeric Pain Scale: 10-Worst Possible Pain Location: Left Location Body Site: Hip Pain Description: Ache Mental Status Patient Orientation: Person, Place, Situation Transfers SCALE: Activities may be completed with or without assistive devices. 4-Egdcyjmldu-xogjjmv completes the activity by him/herself with no assistance from a helper. 5-Set-up or Clean-up Assistance-helper sets up or cleans up; patient completes activity. [place] assists only prior to or following the activity. 4-Supervision or Touching Assistance-helper provides verbal cues and/or touching/steadying and/or contact guard assistance as patient completes activity. Assistance may be provided throughout the activity or intermittently. 3-Partial/Moderate Assistance-helper does LESS THAN HALF the effort. [place] lifts, holds or supports trunk or limbs, but provides less than half the effort. 2-Substantial/Maximal Assistance-helper does MORE THAN HALF the effort. [place] lifts or holds trunk or limbs and provides more than half the effort. 5-Kwfwefunv-xbmoum does ALL the effort. Patient does none of the effort to complete the activity. Or, the assistance of 2 or more helpers is required for the patient to complete the activity. If activity was not attempted, code reason: 7-Patient Refused. 9-Not Applicable-not attempted and the patient did not perform the activity before the current illness, exacerbation or injury. 10-Not Attempted due to Environmental Limitations-(lack of equipment, weather restraints, etc.). 88-Not Attempted due to Medical Conditions or Safety Concerns. Sit to Stand (QC): 4 Toilet Transfer (QC): 4 Weight Bearing Right Lower Extremity: Right Weight Bearing/Tolerated Left Lower Extremity: Left Weight Bearing/Tolerated Gait Training Does the Patient Walk?: Yes Distance: 60', 100' Walk 10 feet (QC): 4 Walk 50 ft with 2 Turns(QC): 4 Gait Persons Needed: 1 Gait Assistive Device: FWW Pt very apprehensive about falling and wants [facility] to follow for longer distances. Pt continues to report not knowing if she can make longer distance. Treatments Pt transfers from recliner to standing then amb. in hallway. Pt takes RB then amb. again. Pt returns to room and uses BR at end of tx. OT arrives to take over tx. Assessment Current Status: Fair Progress Pt self limits, needs encouragement to push self to progress. PT Short Term Goals Short Term Goals Time Frame: Jul 25, 2020 Roll Left & Right: 3 Sit to lyin Lying to sitting on side of be: 3 Sit to stand: 3 Chair/mpl-lk-onjif transfer: 3 Toilet transfer: 3 Car transfer: 3 Walk 10 feet: 3 Walk 50 feet with two turns: 3 Walk 150 feet: 3 Walking 10ft on uneven surface: 3 PT Roll Forming Machine Operator Goals Mcfp Goals PT Roll Forming Machine Operator Goals Time Frame: Aug 08, 2020 Roll Left & Right (QC): 5 Sit to Lying (QC): 5 Lying-Sitting on Side/Bed(QC): 5 Sit to Stand (QC): 5 Chair/Wum-sk-Aiivs Xfer(QC): 5 Toilet Transfer (QC): 5 Car Transfer (QC): 5 Does the Patient Walk: Yes Walk 10 feet (QC): 5 Walk 50ft with 2 Turns (QC): 5 Walk 150 ft (QC): 5 Walking 10ft on Uneven Surface: 5 1 Step (curb) (QC): 4 4 Steps (QC): 9 12 Steps (QC): 9 Picking up an Object (QC): 5 Wheel 50 feet with 2 turns (QC: 5 (if deemed necessary by therapy team) Type: Manual Wheel 150 feet: 5 Type: Manual PT Plan Problem List Problem List: Activity Tolerance, Functional Strength, Gait Treatment/Plan Treatment Plan: Continue Plan of Care Treatment Plan: Bed Mobility, Concurrent Therapy, Education, Functional Activity Syl, Functional Strength, Group Therapy, Gait, Safety, Therapeutic Exercise, Transfers Treatment Duration: Aug 08, 2020 Frequency: Modified Program (IRF) (intensity waiver) Estimated Hrs Per Day: 1 hour per day (increase as tolerated) Patient and/or Family Agrees t: Yes Safety Risks/Education Patient Education: Gait Training, Correct Positioning, Safety Issues Teaching Recipient: Patient Teaching Methods: Discussion Response to Teaching: Verbalize Understanding Time/GCodes Time In: 1300 Time Out: 1330 Total Billed Treatment Time: 30 Total Billed Treatment 1, GT x2 (30m) DUNCAN JACOBS FOOD AND BEVERAGE ASSISTANT MANAGER Jul 16, 2020 13:40
--- NOTE | 2020-07-16 14:17 | Occupational Ther Daily Note ---
OT Current Status-Daily Note Subjective Pt using restroom finishing with PT tx. Pt agreeable to OT session at this time. Pt's daughter arrived during tx, stating she would like to be present for OT tx tomorrow to see how she can best assist pt when pt discharges. OT set up a time to see pt when daughter is available tomorrow morning. Mental Status/Objective Patient Orientation: Person ADL-Treatment Therapy Code Descriptions/Definitions Functional [place] Measure: 0=Not Assessed/NA 4=Minimal Assistance 1=Total Assistance 5=Supervision or Setup 2=Maximal Assistance 6=Modified [place] 3=Moderate Assistance 7=Complete IndependenceSCALE: Activities may be completed with or without assistive devices. 4-Belakgdxqw-vryzbmo completes the activity by him/herself with no assistance from a helper. 5-Set-up or Clean-up Assistance-helper sets up or cleans up; patient completes activity. [place] assists only prior to or following the activity. 4-Supervision or Touching Assistance-helper provides verbal cues and/or touching/steadying and/or contact guard assistance as patient completes activity. Assistance may be provided throughout the activity or intermittently. 3-Partial/Moderate Assistance-helper does LESS THAN HALF the effort. [place] lifts, holds or supports trunk or limbs, but provides less than half the effort. 2-Substantial/Maximal Assistance-helper does MORE THAN HALF the effort. [place] lifts or holds trunk or limbs and provides more than half the effort. 8-Rzqsvbvsz-kpjhkg does ALL the effort. Patient does none of the effort to complete the activity. Or, the assistance of 2 or more helpers is required for the patient to complete the activity. If activity was not attempted, code reason: 7-Patient Refused. 9-Not Applicable-not attempted and the patient did not perform the activity before the current illness, exacerbation or injury. 10-Not Attempted due to Environmental Limitations-(lack of equipment, weather restraints, etc.). 88-Not Attempted due to Medical Conditions or Safety Concerns. Oral Hygiene (QC): 5 (set up at bed level) Toileting Hygiene (QC): 3 (Pt able to manage pants and complete hygiene, assist doffing/donning tab style brief due to incontinence of urine.) Toilet Transfer (QC): 4 (CGA on/off BSC over toilet.) Other Treatment Pt on toilet, finishing with PT tx. Pt completes toileting, requiring assistance doffing/donning tab style brief due to incontinence of urine. Pt then used FWW, standing at sink with CGA to wash her hands, then requested to go to bed. Pt transferred sit to supine, min A with LLE into bed. Pt then completed oral care with set up at bed level. Pt's daughter arrived, discussing pt's needs for when she returns home. Daughter indicates pt will likely go to her house for a little while at discharge before returning to her own home. OT educated daughter on AE in hip kit, pt's daughter states she would like to attend therapy session tomorrow morning to see pt's ability to use AE and what assistance pt needs. OT set up time for tx tomorrow that works with pt's daughters schedule. Post OT tx, pt laying in bed, call light in reach, all needs met with daughter present. Education OT Patient Education: Correct positioning, Energy conservation, Modified ADL techniques, Progress toward Goal/Update tx plan, Purpose of tx/functional activities, Safety issues, Transfer techniques, Use of adapted equipment Teaching Recipient: Patient, Family Teaching Methods: Demonstration, Discussion Response to Teaching: Verbalize Understanding, Return Demonstration OT Short Term Goals Short Term Goals Time Frame: Jul 21, 2020 Oral hygiene: 5 Toileting hygiene: 3 Shower/bathe self: 3 Upper body dressin Lower body dressin Putting on/taking off footwear: 3 OT Flight Hostess Goals Mcc Goals Time Frame: Aug 04, 2020 Eating (QC): 6 Oral Hygiene (QC): 6 Toileting Hygiene (QC): 6 Shower/Bathe Self (QC): 6 Upper Body Dressing (QC): 6 Lower Body Dressing (QC): 6 On/Off Footwear (QC): 6 Additional Goals: 1-Demonstrate ADL Tasks, 2-Verbalize Understanding, 3- ImproveStrength/Syl 1=Demonstrate adherence to instructed precautions during ADL tasks. 2=Patient will verbalize/demonstrate understanding of assistive devices/modifications for ADL. 3=Patient will improve strength/tolerance for activity to enable patient to perform ADL's. OT Education/Plan Problem List/Assessment Assessment: Decreased Activ Tolerance, Decreased UE Strength, Impaired Funct Balance, Impaired I ADL's, Impaired Self-Care Skills Discharge Recommendations Plan/Recommendations: Continue POC Treatment Plan/Plan of Care Patient would benefit from OT for education, treatment and training to promote independence in ADL's, mobility, safety and/or upper extremity function for ADL's. Plan of Care: ADL Retraining, Functional Mobility, Group Exercise/Act as Ind, UE Funct Exercise/Act Treatment Duration: Aug 04, 2020 Frequency: Modified Program (IRF) (27/05) Estimated Hrs Per Day: 1.5 hours per day Rehab Potential: Fair Time/GCodes Start Time: 13:30 Stop Time: 14:00 Total Time Billed (hr/min): 30 Billed Treatment Time 1, ADL 2 FRITZ MUIR OT Jul 16, 2020 14:17
--- NOTE | 2020-07-16 17:07 | Cardiology Progress Note ---
Cardiology SOAP Progress Note Subjective: no cardiac complaints. Objective: I&O/Vital Signs 07/16/20 07/16/20 05:12 09:00 Temp 36.4 Pulse 77 Resp 18 B/P (MAP) 150/67 (94) Pulse Ox 94 O2 Delivery Room Air Room Air 07/15/20 23:59 Intake Total 1100 ml Balance 1100 ml Weight (Pounds): 129 Weight (Ounces): 8.0 Weight (Calculated Kilograms): 58.558328 Constitutional: AAO x 3, well-developed, well-nourished Respiratory: No accessory muscle use; other (good bilat air entry) Cardiovascular: regular rate-rhythm, S1 and S2, systolic murmur (soft SARAI at card base) Gastrointestional: No tender; soft; No guarding; audible bowel sounds Extremities: No clubbing, No cyanosis, No significant edema Neurologic/Psychiatric: oriented x 3, other (moves all limbs equally) Skin: No rash on exposed areas, No ulcerations on exposed areas A/P: Assessment/Dx: Labile hypertension and episodes of orthostatic hypotension (demonstrated during this hospitalization). Diltiazem d/c'd during this hospitalization Syncopal episode of undetermined etiology Jul 02, 2020, likely due to postural hypotension. No significant arrhythmia seen on ILR on 07/02/20 S/p L hip fracture repair per Dr. Woodward on Jul 02, 2020 following a syncopal fall S/p ILR on 03/24/20 (after syncope in March 2020) that has shown PAF w RVR w/o significant bradycardia so far Paroxysmal atrial flutter, first documented on tele strips on 02/11/18 Probable TIA on 02/11/18, resulting in transient R foot numbness/weakness leading to fall and fracture of the R 5th metatarsal, managed by her pcp Lena for stroke prophylaxis MPI of March 20, 2018 showed no evidence of ischemia or infarction. LVEF 80% Echocardiogram of February 12, 2018 showed LVEF 65-70%. Mild aortic regurg. Mod TR. PASP 35 mmHg. Trivial MR. Carotid u/s of 03/19/20 showed minimal bilat carotid plaque TSH normal (0.73) on lab work of 02/12/18 Plan: * Continue current regimen * Monitor labs from time to time Thank you for your consultation. Please call me if you have any questions. M. Bradley Khalid, MD, FACP, FACC, FSCAI, FHRS, CCDS Interventional Cardiology Cardiac Electrophysiology Vascular Medicine and Endovascular Interventions Arturo TAY MD Jul 16, 2020 17:07
[2020-07-16 17:52] VITALS: BP 152/69
[2020-07-16] MEDS: ALPRAZolam 0.25 MG (XANAX) TAB PO SCH (21:07)
[2020-07-17] MEDS: CATHETER FLUSH 10 ML SYR IV SCH ×3 (06:34→21:48)
[2020-07-17 06:39] VITALS: BP 138/63
[2020-07-17 09:16] VITALS: BP 133/65
[2020-07-17] MEDS: PANTOPRAZOLE 20 MG TABLET (PROTONIX) PO SCH (09:22)
[2020-07-17] MEDS: oxyCODONE/APAP 5/325MG (PERCOCET 5) TABLET PO PRN ×3 (09:23→21:32)
[2020-07-17] MEDS: FLUDROCORTISONE 0.1 MG (FLORINEF) TAB PO SCH (09:23)
[2020-07-17] MEDS: APIXABAN 5 MG (ELIQUIS) TABLET PO SCH ×2 (09:23→21:32)
[2020-07-17] MEDS: DIGOXIN 0.125 MG (LANOXIN) TAB PO SCH (09:23)
--- NOTE | 2020-07-17 09:41 | NUR ---
Pt has twitching of bilateral arms that PT states started after she was sitting on the toilet. PT states that pt walked fine from the bed to the toilet, appeared to start the twitching after sitting on the toilet, & getting in the w/c. Pt's speech, & neuros are all good. LUCIEN. Pt took her pain pill which she requested. Pt stated that she felt a little off this morning. Pt talking to her daughter when she arrived. Notified Dr. Mishra & rec'd orders.
--- NOTE | 2020-07-17 09:59 | NUR ---
Sister who is present in room texted her other sister & discussed pt's twitching. The other sister said that she has seen pt do this twitching/shaking before while pt was at home. Pt agreed w this, but said that it hasn't been as much. OT in room now w pt. Notified Dr. Woodward of pt's report that her hip is hurting more than it previously had.
--- NOTE | 2020-07-17 10:24 | Physical Therapy Daily Note ---
PT Daily Note-Current Subjective Pt in bed, reports she "Just doesn't feel good this morning. I can't wake up, my head feels disoriented". Pt also reports repeatedly, "My hip hurts more today than it ever has". Rates 10/10 with standing. Mental Status Patient Orientation: Person, Place, Time, Situation Transfers SCALE: Activities may be completed with or without assistive devices. 7-Uxygvmasyc-mhmtkdk completes the activity by him/herself with no assistance from a helper. 5-Set-up or Clean-up Assistance-helper sets up or cleans up; patient completes activity. [place] assists only prior to or following the activity. 4-Supervision or Touching Assistance-helper provides verbal cues and/or touching/steadying and/or contact guard assistance as patient completes activity. Assistance may be provided throughout the activity or intermittently. 3-Partial/Moderate Assistance-helper does LESS THAN HALF the effort. [place] lifts, holds or supports trunk or limbs, but provides less than half the effort. 2-Substantial/Maximal Assistance-helper does MORE THAN HALF the effort. [place] lifts or holds trunk or limbs and provides more than half the effort. 1-Gbfbolhsz-kxxraz does ALL the effort. Patient does none of the effort to complete the activity. Or, the assistance of 2 or more helpers is required for the patient to complete the activity. If activity was not attempted, code reason: 7-Patient Refused. 9-Not Applicable-not attempted and the patient did not perform the activity before the current illness, exacerbation or injury. 10-Not Attempted due to Environmental Limitations-(lack of equipment, weather restraints, etc.). 88-Not Attempted due to Medical Conditions or Safety Concerns. Sit to Lying (QC): 4 Lying to Sitting/Side of Bed(Q: 4 Sit to Stand (QC): 4 Chair/Kxt-te-[place] Xfer(QC): 4 Toilet Transfer (QC): 2 (Assist to don/doff brief and with pericare) Assist with (L) LE into/out of bed. Sit<->stand with CGA x 1 and VCS for safety. Weight Bearing Right Lower Extremity: Right Weight Bearing/Tolerated Left Lower Extremity: Left Weight Bearing/Tolerated Gait Training Does the Patient Walk?: Yes Distance: 10 Walk 10 feet (QC): 4 Walk 50 ft with 2 Turns(QC): 7 Walk 150 ft (QC): 7 Walking 10ft/uneven surface-QC: 7 Gait Persons Needed: 1 Gait Assistive Device: FWW Pt ambulated to BR with FWW and CGA x 1. No LOB, fluid, reciprocal gait. Treatments Gait training with FWW. Transfer training: toilet, sit<->stand, bed<->WCH, and s it<->supine. Partial co-treat with OT due to Pt jerking episodes and c/o high pain rating. In bed with hand off to OT. Assessment Current Status: Poor Progress After ambulating to BR, Pt began intermittent UE and upper body jerking. Nursing notified of Pt c/o and behaviors. Vitals and BG obtained (see nursing notes), Nursing notified attending physician. Pt self limiting but also with abnormal c/o of increased pain and general malaise. Jerking new to this therapist. PT Short Term Goals Short Term Goals Time Frame: Jul 25, 2020 Roll Left & Right: 3 Sit to lyin Lying to sitting on side of be: 3 Sit to stand: 3 Chair/aps-ui-egzes transfer: 3 Toilet transfer: 3 Car transfer: 3 Walk 10 feet: 3 Walk 50 feet with two turns: 3 Walk 150 feet: 3 Walking 10ft on uneven surface: 3 PT Mcc Goals Mcc Goals PT Employment Training Specialist Goals Time Frame: Aug 08, 2020 Roll Left & Right (QC): 5 Sit to Lying (QC): 5 Lying-Sitting on Side/Bed(QC): 5 Sit to Stand (QC): 5 Chair/Bya-lm-Krgir Xfer(QC): 5 Toilet Transfer (QC): 5 Car Transfer (QC): 5 Does the Patient Walk: Yes Walk 10 feet (QC): 5 Walk 50ft with 2 Turns (QC): 5 Walk 150 ft (QC): 5 Walking 10ft on Uneven Surface: 5 1 Step (curb) (QC): 4 4 Steps (QC): 9 12 Steps (QC): 9 Picking up an Object (QC): 5 Wheel 50 feet with 2 turns (QC: 5 (if deemed necessary by therapy team) Type: Manual Wheel 150 feet: 5 Type: Manual PT Plan Problem List Problem List: Activity Tolerance, Functional Strength, Safety, Balance, Gait, Transfer, Bed Mobility, ROM Treatment/Plan Treatment Plan: Continue Plan of Care Treatment Plan: Bed Mobility, Concurrent Therapy, Education, Functional Activity Syl, Functional Strength, Group Therapy, Gait, Safety, Therapeutic Exercise, Transfers Treatment Duration: Aug 08, 2020 Frequency: Modified Program (IRF) (intensity waiver) Estimated Hrs Per Day: 1 hour per day (increase as tolerated) Patient and/or Family Agrees t: Yes Safety Risks/Education Patient Education: Gait Training, Transfer Techniques Teaching Recipient: Patient Teaching Methods: Discussion Response to Teaching: Verbalize Understanding, Reinforcement Needed Time/GCodes Time In: 839 Time Out: 944 Total Billed Treatment Time: 65 Total Billed Treatment 1, GT x 15', FA x 40' Partial co-treat with OT from [id number] due to increased need for skilled care due to high pain c/o and general unwell feeling/jerking. OT addressing LE and UE dressing, PT attending to posture, sitting balance, and transfers. BHARGAV RAWLS DPT Jul 17, 2020 10:24
--- NOTE | 2020-07-17 10:40 | Diagnostic Imaging Report ---
CLINICAL INDICATION: Patient with increased left hip pain. EXAM: X-ray of the left hip, single AP view. COMPARISON: X-ray of the left hip dated 07/02/2020. FINDINGS: There is interval development of a mildly displaced fracture of the upper aspect of the greater trochanter/upper periprosthetic region involving the proximal left femur. This fracture is distracted by a roughly 8 mm. 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 Cerclage wires about the stem of the prosthesis is in good position. Suspected shadow of pessary ring overlying the pelvis. IMPRESSION: Interval development of a mildly distracted fracture of the upper aspect of the left greater trochanter/upper periprosthetic region involving the proximal left femur. The left hip prosthesis is otherwise in good position and intact. Dictated by: Dictated on workstation # [id number]
--- NOTE | 2020-07-17 10:50 | Occupational Ther Daily Note ---
OT Current Status-Daily Note Subjective Pt with PT, having a "shaking" episode, nurse present. Pt unable to recall having this shaking of her body in the past. Her daughter arrived and talked with other family members who state pt has had tremors/shaking in the past. Pt also reports increased hip pain today but did not verbalize pain rating. ADL-Treatment Therapy Code Descriptions/Definitions Functional [place] Measure: 0=Not Assessed/NA 4=Minimal Assistance 1=Total Assistance 5=Supervision or Setup 2=Maximal Assistance 6=Modified [place] 3=Moderate Assistance 7=Complete IndependenceSCALE: Activities may be completed with or without assistive devices. 6-Fnakayjqjp-nlklupk completes the activity by him/herself with no assistance from a helper. 5-Set-up or Clean-up Assistance-helper sets up or cleans up; patient completes activity. [place] assists only prior to or following the activity. 4-Supervision or Touching Assistance-helper provides verbal cues and/or touching/steadying and/or contact guard assistance as patient completes activity. Assistance may be provided throughout the activity or intermittently. 3-Partial/Moderate Assistance-helper does LESS THAN HALF the effort. [place] lifts, holds or supports trunk or limbs, but provides less than half the effort. 2-Substantial/Maximal Assistance-helper does MORE THAN HALF the effort. [place] lifts or holds trunk or limbs and provides more than half the effort. 5-Cmbeobtyj-zetvkg does ALL the effort. Patient does none of the effort to complete the activity. Or, the assistance of 2 or more helpers is required for the patient to complete the activity. If activity was not attempted, code reason: 7-Patient Refused. 9-Not Applicable-not attempted and the patient did not perform the activity before the current illness, exacerbation or injury. 10-Not Attempted due to Environmental Limitations-(lack of equipment, weather restraints, etc.). 88-Not Attempted due to Medical Conditions or Safety Concerns. Oral Hygiene (QC): 5 (set up at tray table) Upper Body Dressing (QC): 5 (set up) Lower Body Dressing (QC): 3 (min verbal cues for pt to use AE to thread pants, CGA during stand at FWW, with min A for pant hike) On/Off Footwear: 4 (min verbal cues for using AE) Other Treatment [id number] OT/PT cotreat due to skill of 2 clinicians required that a director of rehabilitative services could not perform due to pt's "shaking", the need to coordinate UE/LE with ADLs, and to decrease fall risk. OT focused on ADLs, cues for sequencing/safety, and UE placement while PT focused on dynamic standing balance, LE placement, and overall gross movements. Pt seated in w/c with nurse present, taking vitals. Nurse states pts vitals are normal and okay for therapy to continue. Pt completed dressing using AE, her daughter present and educated on cues/ass istance pt requires with using AE. Pt shaking at times while seated in the w/c for dressing task. Pt stood at FWW for pant hike, then transferred to EOB with CGA. At EOB, pt able to support self upright and [facility] gown/don snout puller shirt. Pt transferred sit to supine with min A for LLE. [id number] OT Tx: Pt laying in bed, completed oral care with set up/clean up assistance. In order to increase fine motor strength, UE strength and functional endurance, pt completed fine motor activity with pegs. Pt reports fatigue with task taking rest breaks as needed. X-Ray arrived to take xray of hip, OT assisted with rolling and positioning for x-ray. After x-ray was taken, pt completed fine motor peg activity. Post OT Tx, pt laying in bed, call light in reach and all needs met, daughter present. Education OT Patient Education: Correct positioning, Energy conservation, Modified ADL techniques, Progress toward Goal/Update tx plan, Purpose of tx/functional activities, Transfer techniques, Use of adapted equipment Teaching Recipient: Patient, Family Teaching Methods: Discussion Response to Teaching: Verbalize Understanding OT Short Term Goals Short Term Goals Time Frame: Jul 21, 2020 Oral hygiene: 5 Toileting hygiene: 3 Shower/bathe self: 3 Upper body dressin Lower body dressin Putting on/taking off footwear: 3 OT Shoe Packer Goals Shoe Packer Goals Time Frame: Aug 04, 2020 Eating (QC): 6 Oral Hygiene (QC): 6 Toileting Hygiene (QC): 6 Shower/Bathe Self (QC): 6 Upper Body Dressing (QC): 6 Lower Body Dressing (QC): 6 On/Off Footwear (QC): 6 Additional Goals: 1-Demonstrate ADL Tasks, 2-Verbalize Understanding, 3- ImproveStrength/Syl 1=Demonstrate adherence to instructed precautions during ADL tasks. 2=Patient will verbalize/demonstrate understanding of assistive devices/modifications for ADL. 3=Patient will improve strength/tolerance for activity to enable patient to perform ADL's. OT Education/Plan Problem List/Assessment Assessment: Decreased Activ Tolerance, Decreased UE Strength, Impaired Funct Balance, Impaired I ADL's, Impaired Self-Care Skills Discharge Recommendations Plan/Recommendations: Continue POC Treatment Plan/Plan of Care Patient would benefit from OT for education, treatment and training to promote independence in ADL's, mobility, safety and/or upper extremity function for ADL's. Plan of Care: ADL Retraining, Functional Mobility, Group Exercise/Act as Ind, UE Funct Exercise/Act Treatment Duration: Aug 04, 2020 Frequency: Modified Program (IRF) (27/05) Estimated Hrs Per Day: 1.5 hours per day Rehab Potential: Fair Time/GCodes Start Time: 09:30 Stop Time: 10:30 Total Time Billed (hr/min): 60 Billed Treatment Time OT/PT cotreat [id number] OT tx [id number] 1, ADL 2 (30'), FA 2 (30') FRITZ MUIR OT Jul 17, 2020 10:50
[2020-07-17] MEDS: polyethylene glycoL POWDER 17 GM (MIRALAX) PACK PO SCH ×2 (11:47→21:33)
[2020-07-17] MEDS: DOCUSATE SODIUM 100 MG (COLACE) CAP PO SCH ×2 (11:47→21:46)
[2020-07-17] MEDS: SENNOSIDES 8.6 MG (SENOKOT) TAB PO SCH ×2 (11:47→21:46)
[2020-07-17 12:06] LABS: HEMOGLOBIN 9.1 G/DL (11.5-16.0); WHITE BLOOD COUNT 9.6 10^3/uL (4.3-11.0)
[2020-07-17 12:34] LABS: ALBUMIN 3.4 GM/DL (3.2-4.5); CHLORIDE 98 MMOL/L (98-107); POTASSIUM 4.2 MMOL/L (3.6-5.0)
[2020-07-17 12:35] LABS: SODIUM 131 MMOL/L (135-145)
[2020-07-17 12:36] LABS: CALCIUM 8.1 MG/DL (8.5-10.1)
[2020-07-17 12:37] LABS: GLUCOSE 107 MG/DL (70-105)
[2020-07-17 12:38] LABS: CARBON DIOXIDE 24 MMOL/L (21-32)
[2020-07-17 12:39] LABS: BILIRUBIN,TOTAL 0.6 MG/DL (0.1-1.0)
[2020-07-17 12:40] LABS: ALKALINE PHOSPHATASE 67 U/L (40-136); CREATININE SERUM 0.58 MG/DL (0.60-1.30); GFR ESTIMATED > 60
[2020-07-17 12:42] LABS: BUN/CREATININE RATIO 16
[2020-07-17 12:43] LABS: ALANINE AMINOTRANSFERASE 9 U/L (0-55)
--- NOTE | 2020-07-17 12:43 | PM&R Progress Note ---
Subjective HPI/CC On Admission Date Seen by Provider: Jul 17, 2020 Time Seen by Provider: 12:15 Subjective/Events-last exam 07/17/20: Patient had twitching Daughter at bedside SHe has twitching at home not this bad Myopathy with therapy will give this type of issue Incontinence 07/16/20: Pt doing pretty well Poor motivation which is chronic Will have a shower today which is a big event for her Bowels moved yesterday Overall doing pretty well 07/15/20: Refuses to turn during the night Tylenol given last night BP is orthostatic as usual Had a BM yesterday 07/14/20: Had a large BM yesterday Doing very well today Going to try to dress herself today Had a little bit of emesis yesterday before a large bowel movement 07/13/20: Pt having a good day Participating in therapy a little bit more today She self limits Wheelchair bound status is likely the result Eating and drinking well Completing iron infusions 07/12/20: Patient feels pretty good Self limiting is chronic issue No pain reported except hip No falls 07/11/20: Patient doing better today and participated in therapy more Wheelchair bound status likely the end plan No pain IV iron giving her a boost 07/10/20: Midline was placed and it works well IV iron ordered Bowels moved yesterday Consulting Dr. Schmitz for pessary 07/09/20: Pt had a pretty good night She is in chronic AF, heart rate of 70s so rate controlled Dressing changes looked really good Bowels moved yesterday Pt doing pretty well Hgb 9.1 Sleepiness noted Sodium level 130 Bowels moved yesterday Incontinent after brown was discontinued Conferred with RN Checked meds and labs Review of Systems General: Fatigue, Malaise Genitourinary: Incontinence Objective Exam Vital Signs Vital Signs Date Time Temp Pulse Resp B/P (MAP) Pulse Ox O2 Delivery O2 Flow Rate FiO2 07/18/20 05:30 37.2 74 18 156/70 (98) 96 Room Air Capillary Refill : Less Than 3 SecondsLess Than 3 Seconds General Appearance: No Apparent Distress, WD/WN, Chronically ill, Thin HEENT: PERRL/EOMI, Normal ENT Inspection, Pharynx Normal Neck: Full Range of Motion, Normal Inspection, Non Tender, Supple, Carotid Bruit Respiratory: Chest Non Tender, Lungs Clear, Normal Breath Sounds, No Accessory Muscle Use, No Respiratory Distress Cardiovascular: Regular Rate, Rhythm, No Edema, No Gallop, No JVD, No Murmur, Normal Peripheral Pulses, Irregularly Irregular Gastrointestinal: Normal Bowel Sounds, No Organomegaly, No Pulsatile Mass, Non Tender, Soft Back: Normal Inspection, No CVA Tenderness, No Vertebral Tenderness Extremity: Normal Capillary Refill, Normal Inspection, Normal Range of Motion, Non Tender, No Calf Tenderness, No Pedal Edema Neurologic/Psychiatric: Alert, Oriented x3, No Motor/Sensory Deficits, Normal Mood/Affect, shoe dyer II-XII Norm as Tested, Motor Weakness (left leg limited ROM due to pain) Skin: Normal Color, Warm/Dry Lymphatic: No Adenopathy Results/Procedures Lab Laboratory Tests 07/17/20 11:55 Patient resulted labs reviewed. FIM Transfers Therapy Code Descriptions/Definitions Functional [place] Measure: 0=Not Assessed/NA 4=Minimal Assistance 1=Total Assistance 5=Supervision or Setup 2=Maximal Assistance 6=Modified [place] 3=Moderate Assistance 7=Complete IndependenceSCALE: Activities may be completed with or without assistive devices. 6-Elzjaigdxm-zmxrfjv completes the activity by him/herself with no assistance fr om a helper. 5-Set-up or Clean-up Assistance-helper sets up or cleans up; patient completes activity. [place] assists only prior to or following the activity. 4-Supervision or Touching Assistance-helper provides verbal cues and/or touching/steadying and/or contact guard assistance as patient completes activity. Assistance may be provided throughout the activity or intermittently. 3-Partial/Moderate Assistance-helper does LESS THAN HALF the effort. [place] lifts, holds or supports trunk or limbs, but provides less than half the effort. 2-Substantial/Maximal Assistance-helper does MORE THAN HALF the effort. [place] lifts or holds trunk or limbs and provides more than half the effort. 3-Jfyecsawz-yvrptw does ALL the effort. Patient does none of the effort to complete the activity. Or, the assistance of 2 or more helpers is required for the patient to complete the activity. If activity was not attempted, code reason: 7-Patient Refused. 9-Not Applicable-not attempted and the patient did not perform the activity before the current illness, exacerbation or injury. 10-Not Attempted due to Environmental Limitations-(lack of equipment, weather restraints, etc.). 88-Not Attempted due to Medical Conditions or Safety Concerns. Roll Left to Right (QC): 1 Sit to Lying (QC): 4 Sit to Stand (QC): 4 Chair/Vui-tw-Ruloh Xfer(QC): 4 Car Transfer (QC): 88 (patient having episode of orthostatic hypotension (not safe to perform on this date)) Gait Training Does the Patient Walk?: Yes Distance: 10 Walk 10 feet (QC): 4 Walk 50 ft with 2 Turns(QC): 7 Walk 150 ft (QC): 7 Walking 10ft/uneven surface-QC: 7 Gait Persons Needed: 1 Gait Assistive Device: FWW Wheelchair Training Does the Pt Use a Wheelchair?: No Wheel 50 ft with 2 turns (QC): 4 Wheel 150 ft (QC): 88 Type of Wheelchair: Manual Stair Training 1 Step (curb) (QC): 88 4 Steps (QC): 9 12 Steps (QC): 9 Balance Picking up an Object (QC): 88 ADL-Treatment Eating (QC): 6 Oral Hygiene (QC): 5 (set up at tray table) Bathing Location: L Arm, R Arm, L Upper Leg, R Upper Leg, Chest, Abdomen, Perineal Area Shower/Bathe Self (QC): 3 (Pt required min A with balance during stand at GBs as she washed periarea and buttocks. Verbal cue to use long handled sponge in order to maintain hip precations) Upper Body Dressing (QC): 5 (set up) Lower Body Dressing (QC): 3 (min verbal cues for pt to use AE to thread pants, CGA during stand at FWW, with min A for pant hike) On/Off Footwear (QC): 4 (min verbal cues for using AE) Toileting Hygiene (QC): 3 (Pt able to manage pants and complete hygiene, assist doffing/donning tab style brief due to incontinence of urine.) Toilet Transfer (QC): 4 (CGA on/off BSC over toilet.) Assessment/Plan Assessment and Plan Assess & Plan/Chief Complaint Assessment per Cardiology assessment with my modifications: Labile hypertension and episodes of orthostatic hypotension (demonstrated during this hospitalization). Diltiazem d/c'd during this hospitalization Syncopal episode of undetermined etiology Jul 02, 2020, likely due to postural hypotension. No significant arrhythmia seen on ILR on 07/02/20 S/P L hip fracture repair per Dr. Woodward on Jul 02, 2020 following a syncopal fall S/P ILR on 03/24/20 (after syncope in March 2020) that has shown PAF w RVR w/o significant bradycardia so far Paroxysmal atrial flutter, first documented on tele strips on 02/11/18 Probable TIA on 02/11/18, resulting in transient R foot numbness/weakness leading to fall and fracture of the R 5th metatarsal, managed by her pcp Lena for stroke prophylaxis MPI of March 20, 2018 showed no evidence of ischemia or infarction. LVEF 80% Echocardiogram of February 12, 2018 showed LVEF 65-70%. Mild aortic regurg. Mod TR. PASP 35 mmHg. Trivial MR. Carotid u/s of 03/19/20 showed minimal bilat carotid plaque TSH normal (0.73) on lab work of 02/12/18 Plan: Because of demonstration of orthostatic hypotension, we have stopped long-acting dilt and are using dig for vent rate control during episodes of AF Continue OAC with Eliquis for stroke prophylaxis Monitor labs from time to time IRF protocol Pain control BM regimen 07/08/20: Monitor incontinence Monitor sleepiness Monitor sodium level 07/09/20: Monitor blood pressure Appreciate cardiology Orthostatic hypotension likely will require wheelchair permanently due to fall risk 07/10/20: Maintain iron infusion Maintain midline Bowel regimen Consult gynecology for pessary 07/11/20: Monitor rectal prolapse Monitor BP and orthostasis 07/12/20: Monitor pain Check labs in am Monitor orthostasis 07/13/20: Complete iron infusion Dressing change per ortho Continue to motivate patient to participate 07/14/20: Continue bowel regimen Increase independence with ADL Monitor for emesis recurrence 07/15/20: Continue all therapy Team conference to decide on disposition discharge Monitor closely 07/16/20: Encourage motivation to participate in therapy Maintain bowel regimen Seems to be getting back to baseline 06/16/20: Poor motivation noted Maintain current treatment (1) Closed left hip fracture Status: Acute (2) Fall Status: Acute (3) Syncope Status: Acute (4) Orthostatic hypotension (5) GERD (gastroesophageal reflux disease) Status: Chronic (6) Anxiety Status: Chronic (7) Atrial fibrillation with controlled ventricular rate JOVANI CAVAZOS DO Jul 17, 2020 12:43
--- NOTE | 2020-07-17 13:20 | Progress Note ---
Standard Progress Note Progress Notes/Assess & Plan Date Seen by a Provider: Jul 17, 2020 Time Seen by a Provider: 13:16 Progress/Assessment & Plan no complaints Vital Signs Date Time Temp Pulse Resp B/P (MAP) Pulse Ox O2 Delivery O2 Flow Rate FiO2 07/08/20 06:05 36.5 85 20 149/68 (95) 92 Room Air 07/07/20 22:18 Room Air 07/07/20 20:00 Room Air 07/07/20 15:50 Room Air 07/07/20 15:29 36.2 91 16 135/68 98 Room Air 07/07/20 15:28 36.2 91 16 135/68 (90) 98 Room Air I & O 07/08/20 07:00 Intake Total 840 ml Balance 840 ml Laboratory Tests Test 07/08/20 04:35 Range/Units White Blood Count 8.6 4.3-11.0 10^3/uL Red Blood Count 2.71 L 4.35-5.85 10^6/uL Hemoglobin 9.1 L 11.5-16.0 G/DL Hematocrit 27 L 35-52 % Mean Corpuscular Volume 99 80-99 FL Mean Corpuscular Hemoglobin 34 25-34 PG Mean Corpuscular Hemoglobin Concent 34 32-36 G/DL Red Cell Distribution Width 13.1 10.0-14.5 % Platelet Count 294 130-400 10^3/uL Mean Platelet Volume 9.5 7.4-10.4 FL Neutrophils (%) (Auto) 72 42-75 % Lymphocytes (%) (Auto) 15 12-44 % Monocytes (%) (Auto) 12 0-12 % Eosinophils (%) (Auto) 2 0-10 % Basophils (%) (Auto) 0 0-10 % Neutrophils # (Auto) 6.2 1.8-7.8 X 10^3 Lymphocytes # (Auto) 1.3 1.0-4.0 X 10^3 Monocytes # (Auto) 1.0 0.0-1.0 X 10^3 Eosinophils # (Auto) 0.2 0.0-0.3 10^3/uL Basophils # (Auto) 0.0 0.0-0.1 10^3/uL Sodium Level 130 L 135-145 MMOL/L Potassium Level 4.3 3.6-5.0 MMOL/L Chloride Level 94 L 98-107 MMOL/L Carbon Dioxide Level 26 21-32 MMOL/L Anion Gap 10 5-14 MMOL/L Blood Urea Nitrogen 15 7-18 MG/DL Creatinine 0.66 0.60-1.30 MG/DL Estimat Glomerular Filtration Rate > 60 BUN/Creatinine Ratio 23 Glucose Level 111 H 70-105 MG/DL Calcium Level 8.2 L 8.5-10.1 MG/DL Corrected Calcium 8.8 8.5-10.1 MG/DL Total Bilirubin 0.8 0.1-1.0 MG/DL Aspartate Amino Transf (AST/SGOT) 14 5-34 U/L Alanine Aminotransferase (ALT/SGPT) 12 0-55 U/L Alkaline Phosphatase 51 40-136 U/L Total Protein 5.7 L 6.4-8.2 GM/DL Albumin 3.2 3.2-4.5 GM/DL working with PT/OT and standing at bedside reports minimal hip pain s/p L hip bipolar continue mobilizing Final Diagnosis c/o shaking Radiographs--Avulsion of the medial aspect of the greater trochanter tip. Prosthesis in excellent position LLE--no pain with IR/ER of hip s/p L hip bipolar with no acute changes continue PT continue WBAT SILKE BRAGG MD Jul 17, 2020 13:20
--- NOTE | 2020-07-17 14:42 | Therapy Group Daily Note ---
Therapy Daily Group Note Patient Education Topic Home Safety Exercises LE Seated Exercise, UE Exercise Session Ratio (pt:therapist): 4:1 Goal of Session: Home Safety Strategies, UE/LE Strengthing Goal Met for this Session: Yes Pt Benefit of Group: Contributions to Others, F/U Use of Strategies @Home, Increased Functional Safety, Increased Functional Strength, Improved Cognition, Recognition of Peers, Socialization Other/Notes Pt was transported via w/c to OT group. Group consisted of introductions (name, place living, fall activity), socialization, seated UE/LE exercises, educational topics on exercising throughout the year and hydration. Pt introduced self appropriately and actively listened to peers. Pt contributed to peer conversations appropriately. Demonstrated understanding of educational topics by answering questions while participating in group activity and giving own personal strategies. After session, pt lying in bed with call light/phone in reach. All needs met in room. Start Time: 13:00 Stop Time: 14:20 Total Billed Treatment Time: 80 Total Billed Treatment 1-GRP TERESA MUNOZ Jul 17, 2020 14:42
[2020-07-17 16:18] VITALS: BP 135/59
--- NOTE | 2020-07-17 16:21 | Cardiology Progress Note ---
Cardiology SOAP Progress Note Subjective: no cardiac complaints. Objective: I&O/Vital Signs 07/17/20 07/17/20 07/17/20 07/17/20 06:39 08:48 09:16 16:18 Temp 37.0 37.4 36.8 Pulse 71 76 73 Resp 16 20 14 B/P (MAP) 138/63 (88) 133/65 (87) 135/59 (84) Pulse Ox 96 98 95 O2 Delivery Room Air Room Air Room Air Room Air 07/17/20 00:00 Intake Total 2100 ml Balance 2100 ml Weight (Pounds): 129 Weight (Ounces): 8.0 Weight (Calculated Kilograms): 58.116154 Constitutional: AAO x 3, well-developed, well-nourished Respiratory: No accessory muscle use; other (good bilat air entry) Cardiovascular: regular rate-rhythm, S1 and S2, systolic murmur (soft SARAI at card base) Gastrointestional: No tender; soft; No guarding; audible bowel sounds Extremities: No clubbing, No cyanosis, No significant edema Neurologic/Psychiatric: oriented x 3, other (moves all limbs equally) Skin: No rash on exposed areas, No ulcerations on exposed areas Results/Procedures: Labs Laboratory Tests 07/17/20 09:19: Glucometer 117H 07/17/20 11:55: White Blood Count 9.6, Red Blood Count 2.73L, Hemoglobin 9.1L, Hematocrit 28L, Mean Corpuscular Volume 103H, Mean Corpuscular Hemoglobin 33, Mean Corpuscular Hemoglobin Concent 32, Red Cell Distribution Width 15.0H, Platelet Count 419H, Mean Platelet Volume 9.0, Sodium Level 131L, Potassium Level 4.2, Chloride Level 98, Carbon Dioxide Level 24, Anion Gap 9, Blood Urea Nitrogen 9, Creatinine 0.58L, Estimat Glomerular Filtration Rate > 60, BUN/Creatinine Ratio 16, Glucose Level 107H, Calcium Level 8.1L, Corrected Calcium 8.6, Total Bilirubin 0.6, Aspartate Amino Transf (AST/SGOT) 18, Alanine Aminotransferase (ALT/SGPT) 9, Alkaline Phosphatase 67, Total Protein 6.0L, Albumin 3.4 A/P: Assessment/Dx: Labile hypertension and episodes of orthostatic hypotension (demonstrated during this hospitalization). Diltiazem d/c'd during this hospitalization. stable. Syncopal episode of undetermined etiology Jul 02, 2020, likely due to postural hypotension. No significant arrhythmia seen on ILR on 07/02/20 S/p L hip fracture repair per Dr. Woodward on Jul 02, 2020 following a syncopal fall S/p ILR on 03/24/20 (after syncope in March 2020) that has shown PAF w RVR w/o significant bradycardia so far Paroxysmal atrial flutter, first documented on tele strips on 02/11/18 Probable TIA on 02/11/18, resulting in transient R foot numbness/weakness leading to fall and fracture of the R 5th metatarsal, managed by her pcp Lena for stroke prophylaxis MPI of March 20, 2018 showed no evidence of ischemia or infarction. LVEF 80% Echocardiogram of February 12, 2018 showed LVEF 65-70%. Mild aortic regurg. Mod TR. PASP 35 mmHg. Trivial MR. Carotid u/s of 03/19/20 showed minimal bilat carotid plaque TSH normal (0.73) on lab work of 02/12/18 Plan: * Continue current regimen * Monitor labs from time to time Thank you for your consultation. Please call me if you have any questions. Eliana Knutson MD, FACP, FACC, FSCAI, FHRS, CCDS Interventional Cardiology Cardiac Electrophysiology Vascular Medicine and Endovascular Interventions Arturo KNUTSON MD Jul 17, 2020 16:21
[2020-07-17] MEDS: IRON SUCROSE 200 MG/10 ML (VENOFER) VIAL IV SCH (18:19)
--- NOTE | 2020-07-17 19:20 | NUR ---
bedside report received from IGNACIO WEIR
--- NOTE | 2020-07-17 19:28 | NUR ---
Notified Dr. Mishra of [facility] [place] [facility], rec'd orders.
--- NOTE | 2020-07-17 19:33 | NUR ---
Pt has had no further twitching this late morning, throughout rest of the day.
[2020-07-17] MEDS: ALPRAZolam 0.25 MG (XANAX) TAB PO SCH (21:32)
--- NOTE | 2020-07-17 21:32 | NUR ---
pt took miralax refused Colace & Senokot, c/o lt hip pain level 7/10 on numeric scale, Percocet 5/325 1 tab given
[2020-07-17] MEDS: NYSTATIN CREAM (MYCOSTATIN) 30 GM TUBE TP SCH (21:45)
[2020-07-17] MEDS: MICONAZOLE 2% POWDER (DESENEX AF) 90 GM TOP SCH (21:46)
--- NOTE | 2020-07-17 22:15 | NUR ---
rates pain 4/10 on numeric scale
[2020-07-18] MEDS: ACETAMINOPHEN 325 MG TABLET PO PRN (03:02)
--- NOTE | 2020-07-18 03:02 | NUR ---
c/o lt hip pain level 5/10 on numeric scale, Tylenol 650mg given
--- NOTE | 2020-07-18 03:45 | NUR ---
resting quietly in bed, pain level 0/10 on CNPI SCALE
[2020-07-18 05:30] VITALS: BP 156/70
[2020-07-18] MEDS: CATHETER FLUSH 10 ML SYR IV SCH ×3 (06:15→22:18)
[2020-07-18] MEDS: PANTOPRAZOLE 20 MG TABLET (PROTONIX) PO SCH (09:55)
[2020-07-18] MEDS: FLUDROCORTISONE 0.1 MG (FLORINEF) TAB PO SCH (09:55)
[2020-07-18] MEDS: SENNOSIDES 8.6 MG (SENOKOT) TAB PO SCH ×2 (09:55→21:28)
[2020-07-18] MEDS: APIXABAN 5 MG (ELIQUIS) TABLET PO SCH ×2 (09:55→21:25)
[2020-07-18] MEDS: DOCUSATE SODIUM 100 MG (COLACE) CAP PO SCH ×2 (09:55→21:28)
[2020-07-18] MEDS: DIGOXIN 0.125 MG (LANOXIN) TAB PO SCH (09:56)
[2020-07-18] MEDS: polyethylene glycoL POWDER 17 GM (MIRALAX) PACK PO SCH ×2 (09:57→21:26)
[2020-07-18] MEDS: MICONAZOLE 2% POWDER (DESENEX AF) 90 GM TOP SCH ×2 (09:58→21:24)
[2020-07-18] MEDS: NYSTATIN CREAM (MYCOSTATIN) 30 GM TUBE TP SCH ×3 (09:58→21:24)
--- NOTE | 2020-07-18 10:49 | Physical Therapy Daily Note ---
PT Daily Note-Current Subjective Pt refused to walk at this time. "I am just so tired. I need to rest." Pt agrees to ther ex in bed. Pain rated 10/10 during ther ex and 0/10 at rest. Transfers SCALE: Activities may be completed with or without assistive devices. 6-Prunpekagc-sawaafj completes the activity by him/herself with no assistance from a helper. 5-Set-up or Clean-up Assistance-helper sets up or cleans up; patient completes activity. [place] assists only prior to or following the activity. 4-Supervision or Touching Assistance-helper provides verbal cues and/or touching/steadying and/or contact guard assistance as patient completes activity. Assistance may be provided throughout the activity or intermittently. 3-Partial/Moderate Assistance-helper does LESS THAN HALF the effort. [place] lifts, holds or supports trunk or limbs, but provides less than half the effort. 2-Substantial/Maximal Assistance-helper does MORE THAN HALF the effort. [place] lifts or holds trunk or limbs and provides more than half the effort. 0-Ecckqlhip-zlqqzf does ALL the effort. Patient does none of the effort to complete the activity. Or, the assistance of 2 or more helpers is required for the patient to complete the activity. If activity was not attempted, code reason: 7-Patient Refused. 9-Not Applicable-not attempted and the patient did not perform the activity before the current illness, exacerbation or injury. 10-Not Attempted due to Environmental Limitations-(lack of equipment, weather restraints, etc.). 88-Not Attempted due to Medical Conditions or Safety Concerns. Weight Bearing Right Lower Extremity: Right Weight Bearing/Tolerated Left Lower Extremity: Left Weight Bearing/Tolerated Treatments Pt performed AROM (R) LE and AAROM (L) LE x 20 reps ea per protocol. Assessment Current Status: Good Progress (L) LE strength gradually improving. Pt resting comfortably, no pain per pt post therapy. Call light in reach. PT Short Term Goals Short Term Goals Time Frame: Jul 25, 2020 Roll Left & Right: 3 Sit to lyin Lying to sitting on side of be: 3 Sit to stand: 3 Chair/gzb-wo-oexjm transfer: 3 Toilet transfer: 3 Car transfer: 3 Walk 10 feet: 3 Walk 50 feet with two turns: 3 Walk 150 feet: 3 Walking 10ft on uneven surface: 3 PT Fdc Goals Fdc Goals PT Clinical Project Leader Goals Time Frame: Aug 08, 2020 Roll Left & Right (QC): 5 Sit to Lying (QC): 5 Lying-Sitting on Side/Bed(QC): 5 Sit to Stand (QC): 5 Chair/Pup-gs-Bxzdw Xfer(QC): 5 Toilet Transfer (QC): 5 Car Transfer (QC): 5 Does the Patient Walk: Yes Walk 10 feet (QC): 5 Walk 50ft with 2 Turns (QC): 5 Walk 150 ft (QC): 5 Walking 10ft on Uneven Surface: 5 1 Step (curb) (QC): 4 4 Steps (QC): 9 12 Steps (QC): 9 Picking up an Object (QC): 5 Wheel 50 feet with 2 turns (QC: 5 (if deemed necessary by therapy team) Type: Manual Wheel 150 feet: 5 Type: Manual PT Plan Treatment/Plan Treatment Plan: Continue Plan of Care Treatment Plan: Bed Mobility, Concurrent Therapy, Education, Functional Activity Syl, Functional Strength, Group Therapy, Gait, Safety, Therapeutic Exercise, Transfers Treatment Duration: Aug 08, 2020 Frequency: Modified Program (IRF) (intensity waiver) Estimated Hrs Per Day: 1 hour per day (increase as tolerated) Patient and/or Family Agrees t: Yes Time/GCodes Time In: 845 Time Out: 900 Total Billed Treatment Time: 15 Total Billed Treatment 1, ther ex 15' RISHABH WARD CPTAna Jul 18, 2020 10:49
--- NOTE | 2020-07-18 12:42 | PM&R Progress Note ---
Subjective HPI/CC On Admission Date Seen by Provider: Jul 18, 2020 Time Seen by Provider: 12:00 Subjective/Events-last exam 07/18/20: Patient having no new issues Very difficult to motivate Incontinence continues and patient has had this ongoing 07/17/20: Patient had twitching Daughter at bedside SHe has twitching at home not this bad Myopathy with therapy will give this type of issue Incontinence 07/16/20: Pt doing pretty well Poor motivation which is chronic Will have a shower today which is a big event for her Bowels moved yesterday Overall doing pretty well 07/15/20: Refuses to turn during the night Tylenol given last night BP is orthostatic as usual Had a BM yesterday 07/14/20: Had a large BM yesterday Doing very well today Going to try to dress herself today Had a little bit of emesis yesterday before a large bowel movement 07/13/20: Pt having a good day Participating in therapy a little bit more today She self limits Wheelchair bound status is likely the result Eating and drinking well Completing iron infusions 07/12/20: Patient feels pretty good Self limiting is chronic issue No pain reported except hip No falls 07/11/20: Patient doing better today and participated in therapy more Wheelchair bound status likely the end plan No pain IV iron giving her a boost 07/10/20: Midline was placed and it works well IV iron ordered Bowels moved yesterday Consulting Dr. Schmitz for pessary 07/09/20: Pt had a pretty good night She is in chronic AF, heart rate of 70s so rate controlled Dressing changes looked really good Bowels moved yesterday Pt doing pretty well Hgb 9.1 Sleepiness noted Sodium level 130 Bowels moved yesterday Incontinent after brown was discontinued Conferred with RN Checked meds and labs Review of Systems General: Fatigue, Malaise Musculoskeletal: leg pain Objective Exam Vital Signs Vital Signs Date Time Temp Pulse Resp B/P (MAP) Pulse Ox O2 Delivery O2 Flow Rate FiO2 07/19/20 05:19 36.5 75 16 155/61 (92) 96 Room Air Capillary Refill : Less Than 3 SecondsLess Than 3 Seconds General Appearance: No Apparent Distress, WD/WN, Chronically ill, Thin HEENT: PERRL/EOMI, Normal ENT Inspection, Pharynx Normal Neck: Full Range of Motion, Normal Inspection, Non Tender, Supple, Carotid Bruit Respiratory: Chest Non Tender, Lungs Clear, Normal Breath Sounds, No Accessory Muscle Use, No Respiratory Distress Cardiovascular: Regular Rate, Rhythm, No Edema, No Gallop, No JVD, No Murmur, Normal Peripheral Pulses, Irregularly Irregular Gastrointestinal: Normal Bowel Sounds, No Organomegaly, No Pulsatile Mass, Non Tender, Soft Back: Normal Inspection, No CVA Tenderness, No Vertebral Tenderness Extremity: Normal Capillary Refill, Normal Inspection, Normal Range of Motion, Non Tender, No Calf Tenderness, No Pedal Edema Neurologic/Psychiatric: Alert, Oriented x3, No Motor/Sensory Deficits, Normal Mood/Affect, radial drill operator II-XII Norm as Tested, Motor Weakness (left leg limited ROM due to pain) Skin: Normal Color, Warm/Dry Lymphatic: No Adenopathy Results/Procedures Lab Patient resulted labs reviewed. FIM Transfers Therapy Code Descriptions/Definitions Functional [place] Measure: 0=Not Assessed/NA 4=Minimal Assistance 1=Total Assistance 5=Supervision or Setup 2=Maximal Assistance 6=Modified [place] 3=Moderate Assistance 7=Complete IndependenceSCALE: Activities may be completed with or without assistive devices. 6-Ffjvlzzjqq-gelksro completes the activity by him/herself with no assistance from a helper. 5-Set-up or Clean-up Assistance-helper sets up or cleans up; patient completes activity. [place] assists only prior to or following the activity. 4-Supervision or Touching Assistance-helper provides verbal cues and/or touching/steadying and/or contact guard assistance as patient completes activity. Assistance may be provided throughout the activity or intermittently. 3-Partial/Moderate Assistance-helper does LESS THAN HALF the effort. [place] lifts, holds or supports trunk or limbs, but provides less than half the effort. 2-Substantial/Maximal Assistance-helper does MORE THAN HALF the effort. [place] lifts or holds trunk or limbs and provides more than half the effort. 0-Uordnluko-vptvkw does ALL the effort. Patient does none of the effort to complete the activity. Or, the assistance of 2 or more helpers is required for the patient to complete the activity. If activity was not attempted, code reason: 7-Patient Refused. 9-Not Applicable-not attempted and the patient did not perform the activity before the current illness, exacerbation or injury. 10-Not Attempted due to Environmental Limitations-(lack of equipment, weather restraints, etc.). 88-Not Attempted due to Medical Conditions or Safety Concerns. Roll Left to Right (QC): 1 Sit to Lying (QC): 4 Sit to Stand (QC): 4 Chair/Vio-pv-Cqugc Xfer(QC): 4 Car Transfer (QC): 88 (patient having episode of orthostatic hypotension (not safe to perform on this date)) Gait Training Does the Patient Walk?: Yes Distance: 10 Walk 10 feet (QC): 4 Walk 50 ft with 2 Turns(QC): 7 Walk 150 ft (QC): 7 Walking 10ft/uneven surface-QC: 7 Gait Persons Needed: 1 Gait Assistive Device: FWW Wheelchair Training Does the Pt Use a Wheelchair?: No Wheel 50 ft with 2 turns (QC): 4 Wheel 150 ft (QC): 88 Type of Wheelchair: Manual Stair Training 1 Step (curb) (QC): 88 4 Steps (QC): 9 12 Steps (QC): 9 Balance Picking up an Object (QC): 88 ADL-Treatment Eating (QC): 6 Oral Hygiene (QC): 5 (set up at tray table) Bathing Location: L Arm, R Arm, L Upper Leg, R Upper Leg, Chest, Abdomen, Perineal Area Shower/Bathe Self (QC): 3 (Pt required min A with balance during stand at [facility] as she washed periarea and buttocks. Verbal cue to use long handled sponge in order to maintain hip precations) Upper Body Dressing (QC): 5 (set up) Lower Body Dressing (QC): 3 (min verbal cues for pt to use AE to thread pants, CGA during stand at FWW, with min A for pant hike) On/Off Footwear (QC): 4 (min verbal cues for using AE) Toileting Hygiene (QC): 3 (Pt able to manage pants and complete hygiene, assist doffing/donning tab style brief due to incontinence of urine.) Toilet Transfer (QC): 4 (CGA on/off BSC over toilet.) Assessment/Plan Assessment and Plan Assess & Plan/Chief Complaint Assessment per Cardiology assessment with my modifications: Labile hypertension and episodes of orthostatic hypotension (demonstrated during this hospitalization). Diltiazem d/c'd during this hospitalization Syncopal episode of undetermined etiology Jul 02, 2020, likely due to postural hypotension. No significant arrhythmia seen on ILR on 07/02/20 S/P L hip fracture repair per Dr. Woodward on Jul 02, 2020 following a syncopal fall S/P ILR on 03/24/20 (after syncope in March 2020) that has shown PAF w RVR w/o significant bradycardia so far Paroxysmal atrial flutter, first documented on tele strips on 02/11/18 Probable TIA on 02/11/18, resulting in transient R foot numbness/weakness leading to fall and fracture of the R 5th metatarsal, managed by her pcp Lena for stroke prophylaxis MPI of March 20, 2018 showed no evidence of ischemia or infarction. LVEF 80% Echocardiogram of February 12, 2018 showed LVEF 65-70%. Mild aortic regurg. Mod TR. PASP 35 mmHg. Trivial MR. Carotid u/s of 03/19/20 showed minimal bilat carotid plaque TSH normal (0.73) on lab work of 02/12/18 Plan: Because of demonstration of orthostatic hypotension, we have stopped long-acting dilt and are using dig for vent rate control during episodes of AF Continue OAC with Eliquis for stroke prophylaxis Monitor labs from time to time IRF protocol Pain control BM regimen 07/08/20: Monitor incontinence Monitor sleepiness Monitor sodium level 07/09/20: Monitor blood pressure Appreciate cardiology Orthostatic hypotension likely will require wheelchair permanently due to fall risk 07/10/20: Maintain iron infusion Maintain midline Bowel regimen Consult gynecology for pessary 07/11/20: Monitor rectal prolapse Monitor BP and orthostasis 07/12/20: Monitor pain Check labs in am Monitor orthostasis 07/13/20: Complete iron infusion Dressing change per ortho Continue to motivate patient to participate 07/14/20: Continue bowel regimen Increase independence with ADL Monitor for emesis recurrence 07/15/20: Continue all therapy Team conference to decide on disposition discharge Monitor closely 07/16/20: Encourage motivation to participate in therapy Maintain bowel regimen Seems to be getting back to baseline 07/17/20: Poor motivation noted Maintain current treatment 07/18/20: Incontinence care Monitor pain BM regimen (1) Closed left hip fracture Status: Acute (2) Fall Status: Acute (3) Syncope Status: Acute (4) Orthostatic hypotension (5) GERD (gastroesophageal reflux disease) Status: Chronic (6) Anxiety Status: Chronic (7) Atrial fibrillation with controlled ventricular rate JOVANI CAVAZOS DO Jul 18, 2020 12:42
[2020-07-18] MEDS: oxyCODONE/APAP 5/325MG (PERCOCET 5) TABLET PO PRN ×2 (14:49→21:25)
--- NOTE | 2020-07-18 15:06 | Cardiology Progress Note ---
Cardiology SOAP Progress Note Subjective: No active cardiac complaints. Objective: I&O/Vital Signs 07/18/20 07/18/20 05:30 09:00 Temp 37.2 Pulse 74 Resp 18 B/P (MAP) 156/70 (98) Pulse Ox 96 O2 Delivery Room Air Room Air 07/18/20 00:00 Intake Total 1180 ml Balance 1180 ml Weight (Pounds): 129 Weight (Ounces): 8.0 Weight (Calculated Kilograms): 58.912373 Constitutional: AAO x 3, well-developed, well-nourished Respiratory: No accessory muscle use; other (good bilat air entry) Cardiovascular: regular rate-rhythm, S1 and S2, systolic murmur (soft ASRAI at card base) Gastrointestional: No tender; soft; No guarding; audible bowel sounds Extremities: No clubbing, No cyanosis, No significant edema Neurologic/Psychiatric: oriented x 3, other (moves all limbs equally) Skin: No rash on exposed areas, No ulcerations on exposed areas A/P: Assessment/Dx: Labile hypertension and episodes of orthostatic hypotension (demonstrated during this hospitalization). Diltiazem d/c'd during this hospitalization. stable. Syncopal episode of undetermined etiology Jul 02, 2020, likely due to postural hypotension. No significant arrhythmia seen on ILR on 07/02/20 S/p L hip fracture repair per Dr. Woodward on Jul 02, 2020 following a syncopal fall S/p ILR on 03/24/20 (after syncope in March 2020) that has shown PAF w RVR w/o significant bradycardia so far Paroxysmal atrial flutter, first documented on tele strips on 02/11/18 Probable TIA on 02/11/18, resulting in transient R foot numbness/weakness leading to fall and fracture of the R 5th metatarsal, managed by her pcp Lena for stroke prophylaxis MPI of March 20, 2018 showed no evidence of ischemia or infarction. LVEF 80% Echocardiogram of February 12, 2018 showed LVEF 65-70%. Mild aortic regurg. Mod TR. PASP 35 mmHg. Trivial MR. Carotid u/s of 03/19/20 showed minimal bilat carotid plaque TSH normal (0.73) on lab work of 02/12/18 Plan: * Continue current regimen * Monitor labs from time to time Thank you for your consultation. Please call me if you have any questions. Eliana Knutson MD, FACP, FACC, FSCAI, FHRS, CCDS Interventional Cardiology Cardiac Electrophysiology Vascular Medicine and Endovascular Interventions Arturo KNUTSON MD Jul 18, 2020 15:06
[2020-07-18 17:00] VITALS: BP 158/72
--- NOTE | 2020-07-18 19:17 | NUR ---
bedside report recieved from OLIVIA WEIR, assume care of pt
[2020-07-18] MEDS: ALPRAZolam 0.25 MG (XANAX) TAB PO SCH (21:25)
--- NOTE | 2020-07-18 21:25 | NUR ---
took miralax, refused Colace & Senokot, c/o lt hip pain level 7/10 on numeric scale, Percocet 5/325 1 tab given
--- NOTE | 2020-07-18 22:10 | NUR ---
rates pain level 2/10 on numeric scale
[2020-07-19 05:19] VITALS: BP 155/61
[2020-07-19] MEDS: CATHETER FLUSH 10 ML SYR IV SCH ×3 (06:05→23:09)
--- NOTE | 2020-07-19 06:33 | PM&R Progress Note ---
Subjective HPI/CC On Admission Date Seen by Provider: Jul 19, 2020 Time Seen by Provider: 11:00 Subjective/Events-last exam 07/19/20: Patient doing pretty well Pain controlled BM today DC planned for 07/22/20 07/18/20: Patient having no new issues Very difficult to motivate Incontinence continues and patient has had this ongoing 07/17/20: Patient had twitching Daughter at bedside SHe has twitching at home not this bad Myopathy with therapy will give this type of issue Incontinence 07/16/20: Pt doing pretty well Poor motivation which is chronic Will have a shower today which is a big event for her Bowels moved yesterday Overall doing pretty well 07/15/20: Refuses to turn during the night Tylenol given last night BP is orthostatic as usual Had a BM yesterday 07/14/20: Had a large BM yesterday Doing very well today Going to try to dress herself today Had a little bit of emesis yesterday before a large bowel movement 07/13/20: Pt having a good day Participating in therapy a little bit more today She self limits Wheelchair bound status is likely the result Eating and drinking well Completing iron infusions 07/12/20: Patient feels pretty good Self limiting is chronic issue No pain reported except hip No falls 07/11/20: Patient doing better today and participated in therapy more Wheelchair bound status likely the end plan No pain IV iron giving her a boost 07/10/20: Midline was placed and it works well IV iron ordered Bowels moved yesterday Consulting Dr. Schmitz for pessary 07/09/20: Pt had a pretty good night She is in chronic AF, heart rate of 70s so rate controlled Dressing changes looked really good Bowels moved yesterday Pt doing pretty well Hgb 9.1 Sleepiness noted Sodium level 130 Bowels moved yesterday Incontinent after brown was discontinued Conferred with RN Checked meds and labs Review of Systems General: Fatigue, Malaise Musculoskeletal: leg pain Objective Exam Vital Signs Vital Signs Date Time Temp Pulse Resp B/P (MAP) Pulse Ox O2 Delivery O2 Flow Rate FiO2 07/19/20 09:00 Room Air 07/19/20 05:19 36.5 75 16 155/61 (92) 96 Capillary Refill : Less Than 3 SecondsLess Than 3 Seconds General Appearance: No Apparent Distress, WD/WN, Chronically ill, Thin HEENT: PERRL/EOMI, Normal ENT Inspection, Pharynx Normal Neck: Full Range of Motion, Normal Inspection, Non Tender, Supple, Carotid Bruit Respiratory: Chest Non Tender, Lungs Clear, Normal Breath Sounds, No Accessory Muscle Use, No Respiratory Distress Cardiovascular: Regular Rate, Rhythm, No Edema, No Gallop, No JVD, No Murmur, Normal Peripheral Pulses, Irregularly Irregular Gastrointestinal: Normal Bowel Sounds, No Organomegaly, No Pulsatile Mass, Non Tender, Soft Back: Normal Inspection, No CVA Tenderness, No Vertebral Tenderness Extremity: Normal Capillary Refill, Normal Inspection, Normal Range of Motion, Non Tender, No Calf Tenderness, No Pedal Edema Neurologic/Psychiatric: Alert, Oriented x3, No Motor/Sensory Deficits, Normal Mood/Affect, assignment editor II-XII Norm as Tested, Motor Weakness (left leg limited ROM due to pain) Skin: Normal Color, Warm/Dry Lymphatic: No Adenopathy Results/Procedures Lab Patient resulted labs reviewed. FIM Transfers Therapy Code Descriptions/Definitions Functional [place] Measure: 0=Not Assessed/NA 4=Minimal Assistance 1=Total Assistance 5=Supervision or Setup 2=Maximal Assistance 6=Modified [place] 3=Moderate Assistance 7=Complete IndependenceSCALE: Activities may be completed with or without assistive devices. 4-Mauyzjxzvk-zjzqaeo completes the activity by him/herself with no assistance from a helper. 5-Set-up or Clean-up Assistance-helper sets up or cleans up; patient completes activity. [place] assists only prior to or following the activity. 4-Supervision or Touching Assistance-helper provides verbal cues and/or touching/steadying and/or contact guard assistance as patient completes activity. Assistance may be provided throughout the activity or intermittently. 3-Partial/Moderate Assistance-helper does LESS THAN HALF the effort. [place] lifts, holds or supports trunk or limbs, but provides less than half the effort. 2-Substantial/Maximal Assistance-helper does MORE THAN HALF the effort. [place] lifts or holds trunk or limbs and provides more than half the effort. 3-Hzcgeqrlo-kzxdgf does ALL the effort. Patient does none of the effort to complete the activity. Or, the assistance of 2 or more helpers is required for the patient to complete the activity. If activity was not attempted, code reason: 7-Patient Refused. 9-Not Applicable-not attempted and the patient did not perform the activity before the current illness, exacerbation or injury. 10-Not Attempted due to Environmental Limitations-(lack of equipment, weather restraints, etc.). 88-Not Attempted due to Medical Conditions or Safety Concerns. Roll Left to Right (QC): 1 Sit to Lying (QC): 4 Sit to Stand (QC): 4 Chair/Xyw-qr-Cxxep Xfer(QC): 4 Car Transfer (QC): 88 (patient having episode of orthostatic hypotension (not safe to perform on this date)) Gait Training Does the Patient Walk?: Yes Distance: 10 Walk 10 feet (QC): 4 Walk 50 ft with 2 Turns(QC): 7 Walk 150 ft (QC): 7 Walking 10ft/uneven surface-QC: 7 Gait Persons Needed: 1 Gait Assistive Device: FWW Wheelchair Training Does the Pt Use a Wheelchair?: No Wheel 50 ft with 2 turns (QC): 4 Wheel 150 ft (QC): 88 Type of Wheelchair: Manual Stair Training 1 Step (curb) (QC): 88 4 Steps (QC): 9 12 Steps (QC): 9 Balance Picking up an Object (QC): 88 ADL-Treatment Eating (QC): 6 Oral Hygiene (QC): 5 (set up at tray table) Bathing Location: L Arm, R Arm, L Upper Leg, R Upper Leg, Chest, Abdomen, Perineal Area Shower/Bathe Self (QC): 3 (Pt required min A with balance during stand at [facility] as she washed periarea and buttocks. Verbal cue to use long handled sponge in order to maintain hip precations) Upper Body Dressing (QC): 5 (set up) Lower Body Dressing (QC): 3 (min verbal cues for pt to use AE to thread pants, CGA during stand at [facility], with min A for pant hike) On/Off Footwear (QC): 4 (min verbal cues for using AE) Toileting Hygiene (QC): 3 (Pt able to manage pants and complete hygiene, assist doffing/donning tab style brief due to incontinence of urine.) Toilet Transfer (QC): 4 (CGA on/off BSC over toilet.) Assessment/Plan Assessment and Plan Assess & Plan/Chief Complaint Assessment per Cardiology assessment with my modifications: Labile hypertension and episodes of orthostatic hypotension (demonstrated during this hospitalization). Diltiazem d/c'd during this hospitalization Syncopal episode of undetermined etiology Jul 02, 2020, likely due to postural hypotension. No significant arrhythmia seen on ILR on 07/02/20 S/P L hip fracture repair per Dr. Woodward on Jul 02, 2020 following a syncopal fall S/P ILR on 03/24/20 (after syncope in March 2020) that has shown PAF w RVR w/o significant bradycardia so far Paroxysmal atrial flutter, first documented on tele strips on 02/11/18 Probable TIA on 02/11/18, resulting in transient R foot numbness/weakness leading to fall and fracture of the R 5th metatarsal, managed by her pcp Lena for stroke prophylaxis MPI of March 20, 2018 showed no evidence of ischemia or infarction. LVEF 80% Echocardiogram of February 12, 2018 showed LVEF 65-70%. Mild aortic regurg. Mod TR. PASP 35 mmHg. Trivial MR. Carotid u/s of 03/19/20 showed minimal bilat carotid plaque TSH normal (0.73) on lab work of 02/12/18 Plan: Because of demonstration of orthostatic hypotension, we have stopped long-acting dilt and are using dig for vent rate control during episodes of AF Continue OAC with Eliquis for stroke prophylaxis Monitor labs from time to time IRF protocol Pain control BM regimen 07/08/20: Monitor incontinence Monitor sleepiness Monitor sodium level 07/09/20: Monitor blood pressure Appreciate cardiology Orthostatic hypotension likely will require wheelchair permanently due to fall risk 07/10/20: Maintain iron infusion Maintain midline Bowel regimen Consult gynecology for pessary 07/11/20: Monitor rectal prolapse Monitor BP and orthostasis 07/12/20: Monitor pain Check labs in am Monitor orthostasis 07/13/20: Complete iron infusion Dressing change per ortho Continue to motivate patient to participate 07/14/20: Continue bowel regimen Increase independence with ADL Monitor for emesis recurrence 07/15/20: Continue all therapy Team conference to decide on disposition discharge Monitor closely 07/16/20: Encourage motivation to participate in therapy Maintain bowel regimen Seems to be getting back to baseline 07/17/20: Poor motivation noted Maintain current treatment 07/18/20: Incontinence care Monitor pain BM regimen 07/19/20: Pain control Monitor incontinence (1) Closed left hip fracture Status: Acute (2) Fall Status: Acute (3) Syncope Status: Acute (4) Orthostatic hypotension (5) GERD (gastroesophageal reflux disease) Status: Chronic (6) Anxiety Status: Chronic (7) Atrial fibrillation with controlled ventricular rate JOVANI CAVAZOS DO Jul 19, 2020 06:33
[2020-07-19] MEDS: APIXABAN 5 MG (ELIQUIS) TABLET PO SCH ×2 (10:08→21:05)
[2020-07-19] MEDS: FLUDROCORTISONE 0.1 MG (FLORINEF) TAB PO SCH (10:08)
[2020-07-19] MEDS: SENNOSIDES 8.6 MG (SENOKOT) TAB PO SCH ×2 (10:08→21:09)
[2020-07-19] MEDS: polyethylene glycoL POWDER 17 GM (MIRALAX) PACK PO SCH ×2 (10:08→21:08)
[2020-07-19] MEDS: DIGOXIN 0.125 MG (LANOXIN) TAB PO SCH (10:08)
[2020-07-19] MEDS: DOCUSATE SODIUM 100 MG (COLACE) CAP PO SCH ×2 (10:08→21:08)
[2020-07-19] MEDS: PANTOPRAZOLE 20 MG TABLET (PROTONIX) PO SCH (10:08)
[2020-07-19] MEDS: NYSTATIN CREAM (MYCOSTATIN) 30 GM TUBE TP SCH ×3 (10:09→21:06)
[2020-07-19] MEDS: MICONAZOLE 2% POWDER (DESENEX AF) 90 GM TOP SCH ×2 (10:09→21:06)
--- NOTE | 2020-07-19 12:08 | Cardiology Progress Note ---
Cardiology SOAP Progress Note Subjective: no cardiac complaints Objective: I&O/Vital Signs 07/19/20 05:19 Temp 36.5 Pulse 75 Resp 16 B/P (MAP) 155/61 (92) Pulse Ox 96 O2 Delivery Room Air 07/19/20 00:00 Intake Total 780 ml Balance 780 ml Weight (Pounds): 129 Weight (Ounces): 8.0 Weight (Calculated Kilograms): [id number] Constitutional: AAO x 3, well-developed, well-nourished Respiratory: No accessory muscle use; other (good bilat air entry) Cardiovascular: regular rate-rhythm, S1 and S2, systolic murmur (soft SARAI at card base) Gastrointestional: No tender; soft; No guarding; audible bowel sounds Extremities: No clubbing, No cyanosis, No significant edema Neurologic/Psychiatric: oriented x 3, other (moves all limbs equally) Skin: No rash on exposed areas, No ulcerations on exposed areas A/P: Assessment/Dx: Labile hypertension and episodes of orthostatic hypotension (demonstrated during this hospitalization). Diltiazem d/c'd during this hospitalization. stable. Syncopal episode of undetermined etiology Jul 02, 2020, likely due to postural hypotension. No significant arrhythmia seen on ILR on 07/02/20 S/p L hip fracture repair per Dr. Woodward on Jul 02, 2020 following a syncopal fall S/p ILR on 03/24/20 (after syncope in March 2020) that has shown PAF w RVR w/o significant bradycardia so far Paroxysmal atrial flutter, first documented on tele strips on 02/11/18 Probable TIA on 02/11/18, resulting in transient R foot numbness/weakness leading to fall and fracture of the R 5th metatarsal, managed by her pcp Lena for stroke prophylaxis MPI of March 20, 2018 showed no evidence of ischemia or infarction. LVEF 80% Echocardiogram of February 12, 2018 showed LVEF 65-70%. Mild aortic regurg. Mod TR. PASP 35 mmHg. Trivial MR. Carotid u/s of 03/19/20 showed minimal bilat carotid plaque TSH normal (0.73) on lab work of 02/12/18 Plan: * Continue current regimen * Monitor labs from time to time Thank you for your consultation. Please call me if you have any questions. Eliana Knutson MD, FACP, FACC, FSCAI, FHRS, CCDS Interventional Cardiology Cardiac Electrophysiology Vascular Medicine and Endovascular Interventions Arturo KNUTSON MD Jul 19, 2020 12:08
[2020-07-19 18:00] VITALS: BP 157/81
--- NOTE | 2020-07-19 19:12 | NUR ---
bedside report received from OLIVIA WEIR, assume care of pt
[2020-07-19] MEDS: ALPRAZolam 0.25 MG (XANAX) TAB PO SCH (21:05)
[2020-07-19] MEDS: oxyCODONE/APAP 5/325MG (PERCOCET 5) TABLET PO PRN (21:06)
--- NOTE | 2020-07-19 21:06 | NUR ---
pt refused Colace, miralx & Senokot stating had stools x2 today kind of soft also, c/o lt hip pain, level 05/22 Percocet 1 tab given
--- NOTE | 2020-07-19 22:00 | NUR ---
resting quietly in bed, pain level 0/10 on CNPI SCALE
[2020-07-20] MEDS: CATHETER FLUSH 10 ML SYR IV SCH ×3 (05:35→20:53)
[2020-07-20 05:40] VITALS: BP 141/66
--- NOTE | 2020-07-20 06:50 | PM&R Progress Note ---
Subjective HPI/CC On Admission Date Seen by Provider: Jul 20, 2020 Time Seen by Provider: 12:15 Subjective/Events-last exam 07/20/20: Patient doing well No complaints Anxious about going home Wed No falls 07/19/20: Patient doing pretty well Pain controlled BM today DC planned for 07/22/20 07/18/20: Patient having no new issues Very difficult to motivate Incontinence continues and patient has had this ongoing 07/17/20: Patient had twitching Daughter at bedside SHe has twitching at home not this bad Myopathy with therapy will give this type of issue Incontinence 07/16/20: Pt doing pretty well Poor motivation which is chronic Will have a shower today which is a big event for her Bowels moved yesterday Overall doing pretty well 07/15/20: Refuses to turn during the night Tylenol given last night BP is orthostatic as usual Had a BM yesterday 07/14/20: Had a large BM yesterday Doing very well today Going to try to dress herself today Had a little bit of emesis yesterday before a large bowel movement 07/13/20: Pt having a good day Participating in therapy a little bit more today She self limits Wheelchair bound status is likely the result Eating and drinking well Completing iron infusions 07/12/20: Patient feels pretty good Self limiting is chronic issue No pain reported except hip No falls 07/11/20: Patient doing better today and participated in therapy more Wheelchair bound status likely the end plan No pain IV iron giving her a boost 07/10/20: Midline was placed and it works well IV iron ordered Bowels moved yesterday Consulting Dr. Schmitz for pessary 07/09/20: Pt had a pretty good night She is in chronic AF, heart rate of 70s so rate controlled Dressing changes looked really good Bowels moved yesterday Pt doing pretty well Hgb 9.1 Sleepiness noted Sodium level 130 Bowels moved yesterday Incontinent after brown was discontinued Conferred with RN Checked meds and labs Review of Systems General: Fatigue, Malaise Musculoskeletal: leg pain Objective Exam Vital Signs Vital Signs Date Time Temp Pulse Resp B/P (MAP) Pulse Ox O2 Delivery O2 Flow Rate FiO2 07/20/20 09:54 97 Room Air 07/20/20 09:00 88 143/64 (90) 07/20/20 05:40 36.6 18 Capillary Refill : Less Than 3 SecondsLess Than 3 Seconds General Appearance: No Apparent Distress, WD/WN, Chronically ill, Thin HEENT: PERRL/EOMI, Normal ENT Inspection, Pharynx Normal Neck: Full Range of Motion, Normal Inspection, Non Tender, Supple, Carotid Bruit Respiratory: Chest Non Tender, Lungs Clear, Normal Breath Sounds, No Accessory Muscle Use, No Respiratory Distress Cardiovascular: Regular Rate, Rhythm, No Edema, No Gallop, No JVD, No Murmur, Normal Peripheral Pulses, Irregularly Irregular Gastrointestinal: Normal Bowel Sounds, No Organomegaly, No Pulsatile Mass, Non Tender, Soft Back: Normal Inspection, No CVA Tenderness, No Vertebral Tenderness Extremity: Normal Capillary Refill, Normal Inspection, Normal Range of Motion, Non Tender, No Calf Tenderness, No Pedal Edema Neurologic/Psychiatric: Alert, Oriented x3, No Motor/Sensory Deficits, Normal Mood/Affect, land department head II-XII Norm as Tested, Motor Weakness (left leg limited ROM due to pain) Skin: Normal Color, Warm/Dry Lymphatic: No Adenopathy Results/Procedures Lab Laboratory Tests 07/20/20 08:25 Patient resulted labs reviewed. FIM Transfers Therapy Code Descriptions/Definitions Functional [place] Measure: 0=Not Assessed/NA 4=Minimal Assistance 1=Total Assistance 5=Supervision or Setup 2=Maximal Assistance 6=Modified [place] 3=Moderate Assistance 7=Complete IndependenceSCALE: Activities may be completed with or without assistive devices. 5-Iwgkadolot-psgxqmm completes the activity by him/herself with no assistance from a helper. 5-Set-up or Clean-up Assistance-helper sets up or cleans up; patient completes activity. [place] assists only prior to or following the activity. 4-Supervision or Touching Assistance-helper provides verbal cues and/or touching/steadying and/or contact guard assistance as patient completes activity. Assistance may be provided throughout the activity or intermittently. 3-Partial/Moderate Assistance-helper does LESS THAN HALF the effort. [place] lifts, holds or supports trunk or limbs, but provides less than half the effort. 2-Substantial/Maximal Assistance-helper does MORE THAN HALF the effort. [place] lifts or holds trunk or limbs and provides more than half the effort. 8-Gepvhjwfb-fbyjlq does ALL the effort. Patient does none of the effort to complete the activity. Or, the assistance of 2 or more helpers is required for the patient to complete the activity. If activity was not attempted, code reason: 7-Patient Refused. 9-Not Applicable-not attempted and the patient did not perform the activity before the current illness, exacerbation or injury. 10-Not Attempted due to Environmental Limitations-(lack of equipment, weather re straints, etc.). 88-Not Attempted due to Medical Conditions or Safety Concerns. Roll Left to Right (QC): 1 Sit to Lying (QC): 4 Sit to Stand (QC): 4 Chair/Xkw-fx-Ctasy Xfer(QC): 4 Car Transfer (QC): 88 (patient having episode of orthostatic hypotension (not safe to perform on this date)) Gait Training Does the Patient Walk?: Yes Distance: 10 Walk 10 feet (QC): 4 Walk 50 ft with 2 Turns(QC): 7 Walk 150 ft (QC): 7 Walking 10ft/uneven surface-QC: 7 Gait Persons Needed: 1 Gait Assistive Device: FWW Wheelchair Training Does the Pt Use a Wheelchair?: No Wheel 50 ft with 2 turns (QC): 4 Wheel 150 ft (QC): 88 Type of Wheelchair: Manual Stair Training 1 Step (curb) (QC): 88 4 Steps (QC): 9 12 Steps (QC): 9 Balance Picking up an Object (QC): 88 ADL-Treatment Eating (QC): 6 Oral Hygiene (QC): 5 (set up at tray table) Bathing Location: L Arm, R Arm, L Upper Leg, R Upper Leg, Chest, Abdomen, Perineal Area Shower/Bathe Self (QC): 3 (Pt required min A with balance during stand at [facility] as she washed periarea and buttocks. Verbal cue to use long handled sponge in order to maintain hip precations) Upper Body Dressing (QC): 5 (set up) Lower Body Dressing (QC): 3 (min verbal cues for pt to use AE to thread pants, CGA during stand at FWW, with min A for pant hike) On/Off Footwear (QC): 4 (min verbal cues for using AE) Toileting Hygiene (QC): 3 (Pt able to manage pants and complete hygiene, assist doffing/donning tab style brief due to incontinence of urine.) Toilet Transfer (QC): 4 (CGA on/off BSC over toilet.) Assessment/Plan Assessment and Plan Assess & Plan/Chief Complaint Assessment per Cardiology assessment with my modifications: Labile hypertension and episodes of orthostatic hypotension (demonstrated during this hospitalization). Diltiazem d/c'd during this hospitalization Syncopal episode of undetermined etiology Jul 02, 2020, likely due to postural hypotension. No significant arrhythmia seen on ILR on 07/02/20 S/P L hip fracture repair per Dr. Woodward on Jul 02, 2020 following a syncopal fall S/P ILR on 03/24/20 (after syncope in March 2020) that has shown PAF w RVR w/o significant bradycardia so far Paroxysmal atrial flutter, first documented on tele strips on 02/11/18 Probable TIA on 02/11/18, resulting in transient R foot numbness/weakness leading to fall and fracture of the R 5th metatarsal, managed by her pcp Lena for stroke prophylaxis MPI of March 20, 2018 showed no evidence of ischemia or infarction. LVEF 80% Echocardiogram of February 12, 2018 showed LVEF 65-70%. Mild aortic regurg. Mod TR. PASP 35 mmHg. Trivial MR. Carotid u/s of 03/19/20 showed minimal bilat carotid plaque TSH normal (0.73) on lab work of 02/12/18 Plan: Because of demonstration of orthostatic hypotension, we have stopped long-acting dilt and are using dig for vent rate control during episodes of AF Continue OAC with Eliquis for stroke prophylaxis Monitor labs from time to time IRF protocol Pain control BM regimen 07/08/20: Monitor incontinence Monitor sleepiness Monitor sodium level 07/09/20: Monitor blood pressure Appreciate cardiology Orthostatic hypotension likely will require wheelchair permanently due to fall risk 07/10/20: Maintain iron infusion Maintain midline Bowel regimen Consult gynecology for pessary 07/11/20: Monitor rectal prolapse Monitor BP and orthostasis 07/12/20: Monitor pain Check labs in am Monitor orthostasis 07/13/20: Complete iron infusion Dressing change per ortho Continue to motivate patient to participate 07/14/20: Continue bowel regimen Increase independence with ADL Monitor for emesis recurrence 07/15/20: Continue all therapy Team conference to decide on disposition discharge Monitor closely 07/16/20: Encourage motivation to participate in therapy Maintain bowel regimen Seems to be getting back to baseline 07/17/20: Poor motivation noted Maintain current treatment 07/18/20: Incontinence care Monitor pain BM regimen 07/19/20: Pain control Monitor incontinence 07/20/20: Labs reviewed Pain control Fall risk DC Wed (1) Closed left hip fracture Status: Acute (2) Fall Status: Acute (3) Syncope Status: Acute (4) Orthostatic hypotension (5) GERD (gastroesophageal reflux disease) Status: Chronic (6) Anxiety Status: Chronic (7) Atrial fibrillation with controlled ventricular rate JOVANI CAVAZOS DO Jul 20, 2020 06:50
--- NOTE | 2020-07-20 08:06 | Progress Note ---
Standard Progress Note Progress Notes/Assess & Plan Date Seen by a Provider: Jul 20, 2020 Time Seen by a Provider: 08:05 Progress/Assessment & Plan no complaints Vital Signs Date Time Temp Pulse Resp B/P (MAP) Pulse Ox O2 Delivery O2 Flow Rate FiO2 07/08/20 06:05 36.5 85 20 149/68 (95) 92 Room Air 07/07/20 22:18 Room Air 07/07/20 20:00 Room Air 07/07/20 15:50 Room Air 07/07/20 15:29 36.2 91 16 135/68 98 Room Air 07/07/20 15:28 36.2 91 16 135/68 (90) 98 Room Air I & O 07/08/20 07:00 Intake Total 840 ml Balance 840 ml Laboratory Tests Test 07/08/20 04:35 Range/Units White Blood Count 8.6 4.3-11.0 10^3/uL Red Blood Count 2.71 L 4.35-5.85 10^6/uL Hemoglobin 9.1 L 11.5-16.0 G/DL Hematocrit 27 L 35-52 % Mean Corpuscular Volume 99 80-99 FL Mean Corpuscular Hemoglobin 34 25-34 PG Mean Corpuscular Hemoglobin Concent 34 32-36 G/DL Red Cell Distribution Width 13.1 10.0-14.5 % Platelet Count 294 130-400 10^3/uL Mean Platelet Volume 9.5 7.4-10.4 FL Neutrophils (%) (Auto) 72 42-75 % Lymphocytes (%) (Auto) 15 12-44 % Monocytes (%) (Auto) 12 0-12 % Eosinophils (%) (Auto) 2 0-10 % Basophils (%) (Auto) 0 0-10 % Neutrophils # (Auto) 6.2 1.8-7.8 X 10^3 Lymphocytes # (Auto) 1.3 1.0-4.0 X 10^3 Monocytes # (Auto) 1.0 0.0-1.0 X 10^3 Eosinophils # (Auto) 0.2 0.0-0.3 10^3/uL Basophils # (Auto) 0.0 0.0-0.1 10^3/uL Sodium Level 130 L 135-145 MMOL/L Potassium Level 4.3 3.6-5.0 MMOL/L Chloride Level 94 L 98-107 MMOL/L Carbon Dioxide Level 26 21-32 MMOL/L Anion Gap 10 5-14 MMOL/L Blood Urea Nitrogen 15 7-18 MG/DL Creatinine 0.66 0.60-1.30 MG/DL Estimat Glomerular Filtration Rate > 60 BUN/Creatinine Ratio 23 Glucose Level 111 H 70-105 MG/DL Calcium Level 8.2 L 8.5-10.1 MG/DL Corrected Calcium 8.8 8.5-10.1 MG/DL Total Bilirubin 0.8 0.1-1.0 MG/DL Aspartate Amino Transf (AST/SGOT) 14 5-34 U/L Alanine Aminotransferase (ALT/SGPT) 12 0-55 U/L Alkaline Phosphatase 51 40-136 U/L Total Protein 5.7 L 6.4-8.2 GM/DL Albumin 3.2 3.2-4.5 GM/DL working with PT/OT and standing at bedside reports minimal hip pain s/p L hip bipolar continue mobilizing Final Diagnosis feeling better Vital Signs Date Time Temp Pulse Resp B/P (MAP) Pulse Ox O2 Delivery O2 Flow Rate FiO2 07/20/20 05:40 36.6 66 18 141/66 (91) 97 Room Air 07/19/20 21:10 Room Air 07/19/20 18:00 37.0 81 16 157/81 (106) 97 Room Air 07/19/20 09:00 Room Air I & O 07/20/20 07:00 Intake Total 1620 ml Balance 1620 ml LLE--able to perform SLR. no pain with IR/ER of hip s/p L hip bipolar FU as outpatient SILKE BRAGG MD Jul 20, 2020 08:06
[2020-07-20 09:00] VITALS: BP 143/64
[2020-07-20] MEDS: DOCUSATE SODIUM 100 MG (COLACE) CAP PO SCH ×2 (09:20→20:49)
[2020-07-20] MEDS: SENNOSIDES 8.6 MG (SENOKOT) TAB PO SCH ×2 (09:20→20:50)
[2020-07-20] MEDS: polyethylene glycoL POWDER 17 GM (MIRALAX) PACK PO SCH ×2 (09:20→20:50)
[2020-07-20] MEDS: DIGOXIN 0.125 MG (LANOXIN) TAB PO SCH (09:21)
[2020-07-20] MEDS: PANTOPRAZOLE 20 MG TABLET (PROTONIX) PO SCH (09:21)
[2020-07-20] MEDS: FLUDROCORTISONE 0.1 MG (FLORINEF) TAB PO SCH (09:21)
[2020-07-20] MEDS: APIXABAN 5 MG (ELIQUIS) TABLET PO SCH ×2 (09:21→20:49)
[2020-07-20] MEDS: NYSTATIN CREAM (MYCOSTATIN) 30 GM TUBE TP SCH ×3 (09:21→20:52)
[2020-07-20] MEDS: MICONAZOLE 2% POWDER (DESENEX AF) 90 GM TOP SCH ×2 (09:22→20:50)
--- NOTE | 2020-07-20 09:25 | Occupational Ther Daily Note ---
OT Current Status-Daily Note Subjective Pt alert, laying in bed. Pt agrees to therapy. No c/o pain though stated that she hadn't gotten a pain pill yet. Nrsg in room after session. Mental Status/Objective Patient Orientation: Person, Place, Time, Situation Attachments: IV ADL-Treatment Pt declined shower, agrees to sponge bath. Pt verbalizes fear of falling. ENG reassures pt that she will be safe. Supine to EOB by self with SBA for encouragement. CGA to min A for SPT due to pt's fear of falling. Pt completed sponge bath sitting in chair. Pt completed all areas except [place] area and buttocks stating that nrsg had cleansed her prior to therapy. Pt using long handle sponge to complete lower leg/feet bathing, assist to dry. With verbal education, pt able to complete lower body dressing with AE. CGA in standing while pt hiked pants over hips. After set up, pt able to don/doff upper body clothing by self. Using FWW, pt able to complete a few steps toward HOB with CGA due to pt's anxiety of falling. CGA with L LE to go from EOB to lying. After session, pt lying in bed with call light/phone in reach. Nrsg present in room. All needs met in room. Therapy Code Descriptions/Definitions Functional [place] Measure: 0=Not Assessed/NA 4=Minimal Assistance 1=Total Assistance 5=Supervision or Setup 2=Maximal Assistance 6=Modified [place] 3=Moderate Assistance 7=Complete IndependenceSCALE: Activities may be completed with or without assistive devices. 4-Qeljnqjdnq-atjpwgm completes the activity by him/herself with no assistance from a helper. 5-Set-up or Clean-up Assistance-helper sets up or cleans up; patient completes activity. [place] assists only prior to or following the activity. 4-Supervision or Touching Assistance-helper provides verbal cues and/or touching/steadying and/or contact guard assistance as patient completes activity. Assistance may be provided throughout the activity or intermittently. 3-Partial/Moderate Assistance-helper does LESS THAN HALF the effort. [place] lifts, holds or supports trunk or limbs, but provides less than half the effort. 2-Substantial/Maximal Assistance-helper does MORE THAN HALF the effort. [place] lifts or holds trunk or limbs and provides more than half the effort. 5-Htldcamil-giztnu does ALL the effort. Patient does none of the effort to complete the activity. Or, the assistance of 2 or more helpers is required for the patient to complete the activity. If activity was not attempted, code reason: 7-Patient Refused. 9-Not Applicable-not attempted and the patient did not perform the activity bef ore the current illness, exacerbation or injury. 10-Not Attempted due to Environmental Limitations-(lack of equipment, weather r estraints, etc.). 88-Not Attempted due to Medical Conditions or Safety Concerns. Bathing Location: L Arm, R Arm, L Upper Leg, R Upper Leg, L Lower Leg (including foot), R Lower Leg (including foot), Chest, Abdomen Shower/Bathe Self (QC): 3 Upper Body Dressing (QC): 5 Lower Body Dressing (QC): 4 On/Off Footwear: 5 OT Short Term Goals Short Term Goals Time Frame: Jul 21, 2020 Oral hygiene: 5 Toileting hygiene: 3 Shower/bathe self: 3 Upper body dressin Lower body dressin Putting on/taking off footwear: 3 OT Gill Box Fixer Goals Custodial Goals Time Frame: Aug 04, 2020 Eating (QC): 6 Oral Hygiene (QC): 6 Toileting Hygiene (QC): 6 Shower/Bathe Self (QC): 6 Upper Body Dressing (QC): 6 Lower Body Dressing (QC): 6 On/Off Footwear (QC): 6 Additional Goals: 1-Demonstrate ADL Tasks, 2-Verbalize Understanding, 3- ImproveStrength/Syl 1=Demonstrate adherence to instructed precautions during ADL tasks. 2=Patient will verbalize/demonstrate understanding of assistive devices/modifications for ADL. 3=Patient will improve strength/tolerance for activity to enable patient to perform ADL's. OT Education/Plan Problem List/Assessment Assessment: Decreased Activ Tolerance, Decreased Safety Aware, Decreased UE Strength, Impaired Coordination, Impaired Funct Balance, Impaired Self-Care Skills Discharge Recommendations Plan/Recommendations: Continue POC Treatment Plan/Plan of Care Patient would benefit from OT for education, treatment and training to promote independence in ADL's, mobility, safety and/or upper extremity function for ADL's. Plan of Care: ADL Retraining, Functional Mobility, Group Exercise/Act as Ind, UE Funct Exercise/Act Treatment Duration: Aug 04, 2020 Frequency: Modified Program (IRF) (27/05) Estimated Hrs Per Day: 1.5 hours per day Rehab Potential: Fair Time/GCodes Start Time: 08:20 Stop Time: 09:20 Total Time Billed (hr/min): 60 Billed Treatment Time 1 visit-ADL 4 (60 min) TERESA MUNOZ Jul 20, 2020 09:25
[2020-07-20 09:27] LABS: BASOPHILS % (AUTO) 0 % (0-10); EOSINOPHILS # (AUTO) 0.1 10^3/uL (0.0-0.3); EOSINOPHILS % (AUTO) 1 % (0-10); HEMATOCRIT 31 % (35-52); LYMPHOCYTES # (AUTO) 0.9 X 10^3 (1.0-4.0); LYMPHOCYTES % (AUTO) 12 % (12-44); MEAN CORPUSCULAR HEMOGLOBIN 34 PG (25-34); MEAN CORPUSCULAR HGB CONC 32 G/DL (32-36); MEAN CORPUSCULAR VOLUME 105 FL (80-99); MEAN PLATELET VOLUME 9.4 FL (7.4-10.4); MONOCYTES # (AUTO) 0.6 X 10^3 (0.0-1.0); MONOCYTES % (AUTO) 9 % (0-12); NEUTROPHILS # (AUTO) 5.5 X 10^3 (1.8-7.8); NEUTROPHILS % (AUTO) 78 % (42-75); PLATELET COUNT 425 10^3/uL (130-400); WHITE BLOOD COUNT 7.1 10^3/uL (4.3-11.0)
[2020-07-20 09:40] LABS: ALBUMIN 3.5 GM/DL (3.2-4.5); CHLORIDE 100 MMOL/L (98-107); POTASSIUM 3.5 MMOL/L (3.6-5.0); SODIUM 135 MMOL/L (135-145)
[2020-07-20 09:42] LABS: CALCIUM 8.3 MG/DL (8.5-10.1)
[2020-07-20 09:43] LABS: GLUCOSE 116 MG/DL (70-105)
[2020-07-20 09:44] LABS: CARBON DIOXIDE 27 MMOL/L (21-32)
[2020-07-20 09:45] LABS: BILIRUBIN,TOTAL 0.5 MG/DL (0.1-1.0)
[2020-07-20 09:46] LABS: ALKALINE PHOSPHATASE 74 U/L (40-136); GFR ESTIMATED > 60
[2020-07-20 09:47] LABS: BUN/CREATININE RATIO 10
[2020-07-20 09:49] LABS: ALANINE AMINOTRANSFERASE 7 U/L (0-55)
[2020-07-20] MEDS ORDERED: KCL 10 MEQ TAB (MICRO K) PO NR (11:00)
--- NOTE | 2020-07-20 11:38 | Physical Therapy Daily Note ---
PT Daily Note-Current Subjective Pt in bed upon arrival; agrees to PT tx. Pt states "I haven't been up in 2 days." Pain Numeric Pain Scale: 0-No Pain Location: No Pain Reported Mental Status Patient Orientation: Person, Place, Situation Attachments: [place] Transfers SCALE: Activities may be completed with or without assistive devices. 4-Ghjimbtjoo-xkskqzt completes the activity by him/herself with no assistance from a helper. 5-Set-up or Clean-up Assistance-helper sets up or cleans up; patient completes activity. [place] assists only prior to or following the activity. 4-Supervision or Touching Assistance-helper provides verbal cues and/or touching/steadying and/or contact guard assistance as patient completes activity. Assistance may be provided throughout the activity or intermittently. 3-Partial/Moderate Assistance-helper does LESS THAN HALF the effort. [place] lifts, holds or supports trunk or limbs, but provides less than half the effort. 2-Substantial/Maximal Assistance-helper does MORE THAN HALF the effort. [place] lifts or holds trunk or limbs and provides more than half the effort. 2-Grjjxnwpl-qqopet does ALL the effort. Patient does none of the effort to complete the activity. Or, the assistance of 2 or more helpers is required for the patient to complete the activity. If activity was not attempted, code reason: 7-Patient Refused. 9-Not Applicable-not attempted and the patient did not perform the activity before the current illness, exacerbation or injury. 10-Not Attempted due to Environmental Limitations-(lack of equipment, weather restraints, etc.). 88-Not Attempted due to Medical Conditions or Safety Concerns. Roll Left & Right (QC): 4 Lying to Sitting/Side of Bed(Q: 3 Sit to Stand (QC): 4 Chair/Vhk-zr-Rcbbo Xfer(QC): 4 Weight Bearing Right Lower Extremity: Right Weight Bearing/Tolerated Left Lower Extremity: Left Weight Bearing/Tolerated Gait Training Does the Patient Walk?: Yes Distance: 10' x2 Gait Persons Needed: 1 Gait Assistive Device: FWW Pt ambulates in room w/ FWW at [facility]. Pt stops x2 for standing rest breaks. Exercises Supine Ex: Ankle pumps, Quad Set, Glut sets, Short Arc Quads Supine Reps: 20 (x2) Seated Therapy Exercises: Ankle pumps, Sit to stand (10 x2), Long arc quads Seated Reps: 20 (x2) Treatments Supine exercises completed; seated exercises completed, in recliner, after ambulating in room. Pt completes sit<>stands from recliner w/ CGA. Pt in recliner sitting up waiting for lunch, w/ bedside table and call light w/in reach, chair alarm armed and all needs met, at end of tx. Assessment Current Status: Fair Progress Pt requires frequent and multiple rest breaks d/t fatigue and "feeling weak". PT Short Term Goals Short Term Goals Time Frame: Jul 25, 2020 Roll Left & Right: 3 Sit to lyin Lying to sitting on side of be: 3 Sit to stand: 3 Chair/nqi-ty-mqmil transfer: 3 Toilet transfer: 3 Car transfer: 3 Walk 10 feet: 3 Walk 50 feet with two turns: 3 Walk 150 feet: 3 Walking 10ft on uneven surface: 3 PT Alf Goals Alf Goals PT Manager Of Customer Billing Goals Time Frame: Aug 08, 2020 Roll Left & Right (QC): 5 Sit to Lying (QC): 5 Lying-Sitting on Side/Bed(QC): 5 Sit to Stand (QC): 5 Chair/Fvr-qf-Dldvj Xfer(QC): 5 Toilet Transfer (QC): 5 Car Transfer (QC): 5 Does the Patient Walk: Yes Walk 10 feet (QC): 5 Walk 50ft with 2 Turns (QC): 5 Walk 150 ft (QC): 5 Walking 10ft on Uneven Surface: 5 1 Step (curb) (QC): 4 4 Steps (QC): 9 12 Steps (QC): 9 Picking up an Object (QC): 5 Wheel 50 feet with 2 turns (QC: 5 (if deemed necessary by therapy team) Type: Manual Wheel 150 feet: 5 Type: Manual PT Plan Problem List Problem List: Activity Tolerance, Functional Strength, Safety, Gait, Transfer, Bed Mobility Treatment/Plan Treatment Plan: Continue Plan of Care Treatment Plan: Bed Mobility, Concurrent Therapy, Education, Functional Activity Syl, Functional Strength, Group Therapy, Gait, Safety, Therapeutic Exercise, Transfers Treatment Duration: Aug 08, 2020 Frequency: Modified Program (IRF) (intensity waiver) Estimated Hrs Per Day: 1 hour per day (increase as tolerated) Patient and/or Family Agrees t: Yes Safety Risks/Education Patient Education: Gait Training, Correct Positioning, Safety Issues Teaching Recipient: Patient Teaching Methods: Discussion Response to Teaching: Verbalize Understanding Time/GCodes Time In: 1045 Time Out: 1145 Total Billed Treatment Time: 60 Total Billed Treatment 1, EX x3 (45m), GT x1 (15m) CHAD MIKE ESTABLISHMENT GUIDE Jul 20, 2020 11:37
--- NOTE | 2020-07-20 14:29 | Therapy Group Daily Note ---
Therapy Daily Group Note Patient Education Topic Home Safety, Fall Prevention, Exercises Exercises LE Seated Exercise, UE Exercise Session Ratio (pt:therapist): 3:1 Goal of Session: Home Safety Strategies, UE/LE Strengthing, Other (list) (Identify Fall Prevention Strategies for home ) Identify ways that pt has modified her home in the past and what she is planning to do to prevent falls in her home after discharge. Participate in seated UE and LE exercises to benefit transfers and ADLs. Goal Met for this Session: Yes Pt Benefit of Group: Contributions to Others, F/U Use of Strategies @Home, Increased Functional Strength, Socialization Pt was active participant in group and benefitted from hearing from others about fall prevention strategies Start Time: 13:00 Stop Time: 14:00 Total Billed Treatment Time: 60 Total Billed Treatment 1, 60min, Group CHAD MIKE CARCASS TRIMMER Jul 20, 2020 14:28
--- NOTE | 2020-07-20 14:36 | Cardiology Progress Note ---
Cardiology SOAP Progress Note Subjective: No cardiac complaints. Objective: I&O/Vital Signs 07/20/20 07/20/20 07/20/20 05:40 09:00 09:54 Temp 36.6 Pulse 66 88 Resp 18 B/P (MAP) 141/66 (91) 143/64 (90) Pulse Ox 97 97 97 O2 Delivery Room Air Room Air Room Air 07/20/20 00:00 Intake Total 1020 ml Balance 1020 ml Weight (Pounds): 129 Weight (Ounces): 8.0 Weight (Calculated Kilograms): 58.337741 Constitutional: AAO x 3, well-developed, well-nourished Respiratory: No accessory muscle use; other (good bilat air entry) Cardiovascular: regular rate-rhythm, S1 and S2, systolic murmur (soft SARAI at card base) Gastrointestional: No tender; soft; No guarding; audible bowel sounds Extremities: No clubbing, No cyanosis, No significant edema Neurologic/Psychiatric: oriented x 3, other (moves all limbs equally) Skin: No rash on exposed areas, No ulcerations on exposed areas Results/Procedures: Labs Laboratory Tests 07/20/20 08:25: White Blood Count 7.1, Red Blood Count 2.95L, Hemoglobin 10.0L, Hematocrit 31L, Mean Corpuscular Volume 105H, Mean Corpuscular Hemoglobin 34, Mean Corpuscular Hemoglobin Concent 32, Red Cell Distribution Width 15.1H, Platelet Count 425H, Mean Platelet Volume 9.4, Neutrophils (%) (Auto) 78H, Lymphocytes (%) (Auto) 12, Monocytes (%) (Auto) 9, Eosinophils (%) (Auto) 1, Basophils (%) (Auto) 0, Neutrophils # (Auto) 5.5, Lymphocytes # (Auto) 0.9L, Monocytes # (Auto) 0.6, Eosinophils # (Auto) 0.1, Basophils # (Auto) 0.0, Sodium Level 135, Potassium Level 3.5L, Chloride Level 100, Carbon Dioxide Level 27, Anion Gap 8, Blood Urea Nitrogen 6L, Creatinine 0.60, Estimat Glomerular Filtration Rate > 60, BUN/Creatinine Ratio 10, Glucose Level 116H, Calcium Level 8.3L, Corrected Calc ium 8.7, Total Bilirubin 0.5, Aspartate Amino Transf (AST/SGOT) 10, Alanine Aminotransferase (ALT/SGPT) 7, Alkaline Phosphatase 74, Total Protein 6.0L, Albumin 3.5 A/P: Assessment/Dx: Labile hypertension and episodes of orthostatic hypotension (demonstrated during this hospitalization). Diltiazem d/c'd during this hospitalization. stable. Syncopal episode of undetermined etiology Jul 02, 2020, likely due to postural hypotension. No significant arrhythmia seen on ILR on 07/02/20 S/p L hip fracture repair per Dr. Woodward on Jul 02, 2020 following a syncopal fa ll S/p ILR on 03/24/20 (after syncope in March 2020) that has shown PAF w RVR w/o significant bradycardia so far Paroxysmal atrial flutter, first documented on tele strips on 02/11/18 Probable TIA on 02/11/18, resulting in transient R foot numbness/weakness leading to fall and fracture of the R 5th metatarsal, managed by her pcp Lena for stroke prophylaxis MPI of March 20, 2018 showed no evidence of ischemia or infarction. LVEF 80% Echocardiogram of February 12, 2018 showed LVEF 65-70%. Mild aortic regurg. Mod TR. PASP 35 mmHg. Trivial MR. Carotid u/s of 03/19/20 showed minimal bilat carotid plaque TSH normal (0.73) on lab work of 02/12/18 Plan: * Continue current regimen * Monitor labs from time to time Thank you for your consultation. Please call me if you have any questions. Eliana Knutson MD, FACP, FACC, FSCAI, FHRS, CCDS Interventional Cardiology Cardiac Electrophysiology Vascular Medicine and Endovascular Interventions Arturo KNUTSON MD Jul 20, 2020 14:36
[2020-07-20 18:00] VITALS: BP 164/69
[2020-07-20] MEDS: ALPRAZolam 0.25 MG (XANAX) TAB PO SCH (20:49)
[2020-07-20] MEDS: oxyCODONE/APAP 5/325MG (PERCOCET 5) TABLET PO PRN (20:51)
[2020-07-21 06:00] VITALS: BP 156/72
[2020-07-21] MEDS: KCL 10 MEQ TAB (MICRO K) PO SCH (06:29)
[2020-07-21] MEDS: CATHETER FLUSH 10 ML SYR IV SCH ×3 (06:30→22:24)
[2020-07-21] MEDS: DOCUSATE SODIUM 100 MG (COLACE) CAP PO SCH ×2 (07:33→21:24)
[2020-07-21] MEDS: polyethylene glycoL POWDER 17 GM (MIRALAX) PACK PO SCH ×2 (07:33→21:15)
[2020-07-21] MEDS: APIXABAN 5 MG (ELIQUIS) TABLET PO SCH ×2 (08:19→21:14)
[2020-07-21] MEDS: FLUDROCORTISONE 0.1 MG (FLORINEF) TAB PO SCH (08:19)
[2020-07-21] MEDS: SENNOSIDES 8.6 MG (SENOKOT) TAB PO SCH ×2 (08:19→21:24)
[2020-07-21] MEDS: DIGOXIN 0.125 MG (LANOXIN) TAB PO SCH (08:19)
[2020-07-21] MEDS: PANTOPRAZOLE 20 MG TABLET (PROTONIX) PO SCH (08:19)
--- NOTE | 2020-07-21 08:26 | PM&R Progress Note ---
Subjective HPI/CC On Admission Date Seen by Provider: Jul 21, 2020 Time Seen by Provider: 09:00 Subjective/Events-last exam 07/21/20: Pt doing well Discharge planned for Monday Decubitus ulcer very small, but she refuses to turn in bed Overall prognosis is guarded 07/20/20: Patient doing well No complaints Anxious about going home Wed No falls 07/19/20: Patient doing pretty well Pain controlled BM today DC planned for 07/22/20 07/18/20: Patient having no new issues Very difficult to motivate Incontinence continues and patient has had this ongoing 07/17/20: Patient had twitching Daughter at bedside SHe has twitching at home not this bad Myopathy with therapy will give this type of issue Incontinence 07/16/20: Pt doing pretty well Poor motivation which is chronic Will have a shower today which is a big event for her Bowels moved yesterday Overall doing pretty well 07/15/20: Refuses to turn during the night Tylenol given last night BP is orthostatic as usual Had a BM yesterday 07/14/20: Had a large BM yesterday Doing very well today Going to try to dress herself today Had a little bit of emesis yesterday before a large bowel movement 07/13/20: Pt having a good day Participating in therapy a little bit more today She self limits Wheelchair bound status is likely the result Eating and drinking well Completing iron infusions 07/12/20: Patient feels pretty good Self limiting is chronic issue No pain reported except hip No falls 07/11/20: Patient doing better today and participated in therapy more Wheelchair bound status likely the end plan No pain IV iron giving her a boost 07/10/20: Midline was placed and it works well IV iron ordered Bowels moved yesterday Consulting Dr. Schmitz for pessary 07/09/20: Pt had a pretty good night She is in chronic AF, heart rate of 70s so rate controlled Dressing changes looked really good Bowels moved yesterday Pt doing pretty well Hgb 9.1 Sleepiness noted Sodium level 130 Bowels moved yesterday Incontinent after brown was discontinued Conferred with RN Checked meds and labs Review of Systems General: Fatigue, Malaise Neurological: Weakness Objective Exam Vital Signs Vital Signs Date Time Temp Pulse Resp B/P (MAP) Pulse Ox O2 Delivery O2 Flow Rate FiO2 07/21/20 18:00 37.6 88 16 144/65 (91) 97 Room Air Capillary Refill : Less Than 3 SecondsLess Than 3 Seconds General Appearance: No Apparent Distress, WD/WN, Chronically ill, Thin HEENT: PERRL/EOMI, Normal ENT Inspection, Pharynx Normal Neck: Full Range of Motion, Normal Inspection, Non Tender, Supple, Carotid Bruit Respiratory: Chest Non Tender, Lungs Clear, Normal Breath Sounds, No Accessory Muscle Use, No Respiratory Distress Cardiovascular: Regular Rate, Rhythm, No Edema, No Gallop, No JVD, No Murmur, Normal Peripheral Pulses, Irregularly Irregular Gastrointestinal: Normal Bowel Sounds, No Organomegaly, No Pulsatile Mass, Non Tender, Soft Back: Normal Inspection, No CVA Tenderness, No Vertebral Tenderness Extremity: Normal Capillary Refill, Normal Inspection, Normal Range of Motion, Non Tender, No Calf Tenderness, No Pedal Edema Neurologic/Psychiatric: Alert, Oriented x3, No Motor/Sensory Deficits, Normal Mood/Affect, 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 FIM Transfers Therapy Code Descriptions/Definitions Functional [place] Measure: 0=Not Assessed/NA 4=Minimal Assistance 1=Total Assistance 5=Supervision or Setup 2=Maximal Assistance 6=Modified [place] 3=Moderate Assistance 7=Complete IndependenceSCALE: Activities may be completed with or without assistive devices. 1-Qjsqkhdbuh-eqpwrik completes the activity by him/herself with no assistance from a helper. 5-Set-up or Clean-up Assistance-helper sets up or cleans up; patient completes activity. [place] assists only prior to or following the activity. 4-Supervision or Touching Assistance-helper provides verbal cues and/or touching/steadying and/or contact guard assistance as patient completes activity. Assistance may be provided throughout the activity or intermittently. 3-Partial/Moderate Assistance-helper does LESS THAN HALF the effort. [place] lifts, holds or supports trunk or limbs, but provides less than half the effort. 2-Substantial/Maximal Assistance-helper does MORE THAN HALF the effort. [place] lifts or holds trunk or limbs and provides more than half the effort. 1-Swvrnknyo-klgqcy does ALL the effort. Patient does none of the effort to complete the activity. Or, the assistance of 2 or more helpers is required for the patient to complete the activity. If activity was not attempted, code reason: 7-Patient Refused. 9-Not Applicable-not attempted and the patient did not perform the activity before the current illness, exacerbation or injury. 10-Not Attempted due to Environmental Limitations-(lack of equipment, weather restraints, etc.). 88-Not Attempted due to Medical Conditions or Safety Concerns. Roll Left to Right (QC): 4 Sit to Lying (QC): 4 Sit to Stand (QC): 4 Chair/Jgq-ih-Iwtia Xfer(QC): 4 Car Transfer (QC): 88 (patient having episode of orthostatic hypotension (not safe to perform on this date)) Gait Training Does the Patient Walk?: Yes Distance: 10' x2 Walk 10 feet (QC): 4 Walk 50 ft with 2 Turns(QC): 7 Walk 150 ft (QC): 7 Walking 10ft/uneven surface-QC: 7 Gait Persons Needed: 1 Gait Assistive Device: FWW Wheelchair Training Does the Pt Use a Wheelchair?: No Wheel 50 ft with 2 turns (QC): 4 Wheel 150 ft (QC): 88 Type of Wheelchair: Manual Stair Training 1 Step (curb) (QC): 88 4 Steps (QC): 9 12 Steps (QC): 9 Balance Picking up an Object (QC): 88 ADL-Treatment Eating (QC): 6 Oral Hygiene (QC): 5 (set up at tray table) Bathing Location: L Arm, R Arm, L Upper Leg, R Upper Leg, L Lower Leg (including foot), R Lower Leg (including foot), Chest, Abdomen Shower/Bathe Self (QC): 3 Upper Body Dressing (QC): 5 Lower Body Dressing (QC): 4 On/Off Footwear (QC): 5 Toileting Hygiene (QC): 3 (Pt able to manage pants and complete hygiene, assist doffing/donning tab style brief due to incontinence of urine.) Toilet Transfer (QC): 4 (CGA on/off BSC over toilet.) Assessment/Plan Assessment and Plan Assess & Plan/Chief Complaint Assessment per Cardiology assessment with my modifications: Labile hypertension and episodes of orthostatic hypotension (demonstrated during this hospitalization). Diltiazem d/c'd during this hospitalization Syncopal episode of undetermined etiology Jul 02, 2020, likely due to postural hypotension. No significant arrhythmia seen on ILR on 07/02/20 S/P L hip fracture repair per Dr. Woodward on Jul 02, 2020 following a syncopal fall S/P ILR on 03/24/20 (after syncope in March 2020) that has shown PAF w RVR w/o significant bradycardia so far Paroxysmal atrial flutter, first documented on tele strips on 02/11/18 Probable TIA on 02/11/18, resulting in transient R foot numbness/weakness leading to fall and fracture of the R 5th metatarsal, managed by her pcp Lena for stroke prophylaxis MPI of March 20, 2018 showed no evidence of ischemia or infarction. LVEF 80% Echocardiogram of February 12, 2018 showed LVEF 65-70%. Mild aortic regurg. Mod TR. PASP 35 mmHg. Trivial MR. Carotid u/s of 03/19/20 showed minimal bilat carotid plaque TSH normal (0.73) on lab work of 02/12/18 Plan: Because of demonstration of orthostatic hypotension, we have stopped long-acting dilt and are using dig for vent rate control during episodes of AF Continue OAC with Eliquis for stroke prophylaxis Monitor labs from time to time IRF protocol Pain control BM regimen 07/08/20: Monitor incontinence Monitor sleepiness Monitor sodium level 07/09/20: Monitor blood pressure Appreciate cardiology Orthostatic hypotension likely will require wheelchair permanently due to fall risk 07/10/20: Maintain iron infusion Maintain midline Bowel regimen Consult gynecology for pessary 07/11/20: Monitor rectal prolapse Monitor BP and orthostasis 07/12/20: Monitor pain Check labs in am Monitor orthostasis 07/13/20: Complete iron infusion Dressing change per ortho Continue to motivate patient to participate 07/14/20: Continue bowel regimen Increase independence with ADL Monitor for emesis recurrence 07/15/20: Continue all therapy Team conference to decide on disposition discharge Monitor closely 07/16/20: Encourage motivation to participate in therapy Maintain bowel regimen Seems to be getting back to baseline 07/17/20: Poor motivation noted Maintain current treatment 07/18/20: Incontinence care Monitor pain BM regimen 07/19/20: Pain control Monitor incontinence 07/20/20: Labs reviewed Pain control Fall risk DC 07/21/20: Discharge Monday Refuses to turn and she has decubitus ulcer (1) Closed left hip fracture Status: Acute (2) Fall Status: Acute (3) Syncope Status: Acute (4) Orthostatic hypotension (5) GERD (gastroesophageal reflux disease) Status: Chronic (6) Anxiety Status: Chronic (7) Atrial fibrillation with controlled ventricular rate JOVANI CAVAZOS DO Jul 21, 2020 08:26
--- NOTE | 2020-07-21 09:10 | Occupational Ther Daily Note ---
OT Current Status-Daily Note Subjective Pt laying in bed, agreeable to OT tx. Pt reports having more difficulty due to not moving much the last 3 days, OT reminded pt she had PT on Monday, and 3 hours of therapy yesterday, all pt remembers is 1 hour of therapy from the day before but she is unable to recall other therapies yesterday. ADL-Treatment Therapy Code Descriptions/Definitions Functional [place] Measure: 0=Not Assessed/NA 4=Minimal Assistance 1=Total Assistance 5=Supervision or Setup 2=Maximal Assistance 6=Modified [place] 3=Moderate Assistance 7=Complete IndependenceSCALE: Activities may be completed with or without assistive devices. 5-Ioxayzmjuv-mhnqvwf completes the activity by him/herself with no assistance from a helper. 5-Set-up or Clean-up Assistance-helper sets up or cleans up; patient completes activity. [place] assists only prior to or following the activity. 4-Supervision or Touching Assistance-helper provides verbal cues and/or touching/steadying and/or contact guard assistance as patient completes activity. Assistance may be provided throughout the activity or intermittently. 3-Partial/Moderate Assistance-helper does LESS THAN HALF the effort. [place] lifts, holds or supports trunk or limbs, but provides less than half the effort. 2-Substantial/Maximal Assistance-helper does MORE THAN HALF the effort. [place] lifts or holds trunk or limbs and provides more than half the effort. 7-Kkzprjtkw-jcmpva does ALL the effort. Patient does none of the effort to complete the activity. Or, the assistance of 2 or more helpers is required for the patient to complete the activity. If activity was not attempted, code reason: 7-Patient Refused. 9-Not Applicable-not attempted and the patient did not perform the activity before the current illness, exacerbation or injury. 10-Not Attempted due to Environmental Limitations-(lack of equipment, weather restraints, etc.). 88-Not Attempted due to Medical Conditions or Safety Concerns. Eating (QC): 6 (pt reports no difficulties with eating.) Oral Hygiene (QC): 5 (set up at bed level) Shower/Bathe Self (QC): 4 (CGA in/out of shower, pt able to wash all parts seated with SBA, using long handled sponge for lower body.) Upper Body Dressing (QC): 5 (setu p assist) Toileting Hygiene (QC): 4 (CGA during clothing management, pt able to complete hygiene) Toilet Transfer (QC): 4 (CGA on/off BSC over toilet) Other Treatment Pt laying in bed, completed oral hygiene, then transferred supine to sit EOB with SBA. Pt then stood at FWW, ambulating into the restroom and onto toilet with CGA. Pt completed toileting then transferred onto SC. Pt doffed clothes with AE without verbal cues, then completed shower. Pt donned upper body clothes, then reports increased dizziness. Due to time constraint of tx, and dizziness, OT assisted pt with donning lower body clothes and footwear, pt agreeable to completing these tasks in later session. Pt transferred to recliner, blood pressure 111/55 with oxygen saturation 98% on room air. OT notified pt's nurse of BP and reports of dizziness. Post OT Tx, pt seated in recliner, call light in reach and all needs met. Education OT Patient Education: Correct positioning, Energy conservation, Modified ADL techniques, Progress toward Goal/Update tx plan, Purpose of tx/functional activities Teaching Recipient: Patient Teaching Methods: Discussion Response to Teaching: Verbalize Understanding OT Short Term Goals Short Term Goals Time Frame: Jul 21, 2020 Oral hygiene: 5 Toileting hygiene: 3 Shower/bathe self: 3 Upper body dressin Lower body dressin Putting on/taking off footwear: 3 OT [facility] Goals Business Development Representative Goals Time Frame: Aug 04, 2020 Eating (QC): 6 Oral Hygiene (QC): 6 Toileting Hygiene (QC): 6 Shower/Bathe Self (QC): 6 Upper Body Dressing (QC): 6 Lower Body Dressing (QC): 6 On/Off Footwear (QC): 6 Additional Goals: 1-Demonstrate ADL Tasks, 2-Verbalize Understanding, 3-Imp roveStrength/Syl 1=Demonstrate adherence to instructed precautions during ADL tasks. 2=Patient will verbalize/demonstrate understanding of assistive devices/modifications for ADL. 3=Patient will improve strength/tolerance for activity to enable patient to perform ADL's. OT Education/Plan Problem List/Assessment Assessment: Decreased Activ Tolerance, Decreased UE Strength, Impaired I ADL's, Impaired Self-Care Skills Discharge Recommendations Plan/Recommendations: Continue POC Equpiment Recommendations-D/C: Hip Kit Treatment Plan/Plan of Care Patient would benefit from OT for education, treatment and training to promote independence in ADL's, mobility, safety and/or upper extremity function for ADL's. Plan of Care: ADL Retraining, Functional Mobility, Group Exercise/Act as Ind, UE Funct Exercise/Act Treatment Duration: Aug 04, 2020 Frequency: Modified Program (IRF) (27/05) Estimated Hrs Per Day: 1.5 hours per day Rehab Potential: Fair Time/GCodes Start Time: 08:00 Stop Time: 09:00 Total Time Billed (hr/min): 60 Billed Treatment Time 1, ADL 4 FRITZ MUIR OT Jul 21, 2020 09:10
[2020-07-21] MEDS: MICONAZOLE 2% POWDER (DESENEX AF) 90 GM TOP SCH ×2 (09:33→21:18)
[2020-07-21] MEDS: NYSTATIN CREAM (MYCOSTATIN) 30 GM TUBE TP SCH ×3 (09:34→21:17)
--- NOTE | 2020-07-21 10:05 | Physical Therapy Daily Note ---
PT Daily Note-Current Subjective Pt sitting up in chair upon arrival. Agrees to PT tx. Pain Numeric Pain Scale: 0-No Pain Location: No Pain Reported Mental Status Patient Orientation: Person, Confused, Situation Attachments: [place] Transfers SCALE: Activities may be completed with or without assistive devices. 9-Oqhwxximxh-ebzqcpp completes the activity by him/herself with no assistance from a helper. 5-Set-up or Clean-up Assistance-helper sets up or cleans up; patient completes activity. [place] assists only prior to or following the activity. 4-Supervision or Touching Assistance-helper provides verbal cues and/or touching/steadying and/or contact guard assistance as patient completes activity. Assistance may be provided throughout the activity or intermittently. 3-Partial/Moderate Assistance-helper does LESS THAN HALF the effort. [place] lifts, holds or supports trunk or limbs, but provides less than half the effort. 2-Substantial/Maximal Assistance-helper does MORE THAN HALF the effort. [place] lifts or holds trunk or limbs and provides more than half the effort. 8-Tmhthtnjw-cocsjm does ALL the effort. Patient does none of the effort to complete the activity. Or, the assistance of 2 or more helpers is required for the patient to complete the activity. If activity was not attempted, code reason: 7-Patient Refused. 9-Not Applicable-not attempted and the patient did not perform the activity before the current illness, exacerbation or injury. 10-Not Attempted due to Environmental Limitations-(lack of equipment, weather restraints, etc.). 88-Not Attempted due to Medical Conditions or Safety Concerns. Roll Left & Right (QC): 6 Sit to Lying (QC): 5 Lying to Sitting/Side of Bed(Q: 5 Sit to Stand (QC): 4 Chair/Fsm-ch-Oepnw Xfer(QC): 4 Toilet Transfer (QC): 4 Car Transfer (QC): 4 Pt uses bed railing for all bed mobility. Pt attempted bed mobility w/out using railings and struggles, but can complete w/out assistance. Weight Bearing Right Lower Extremity: Right Weight Bearing/Tolerated Left Lower Extremity: Left Weight Bearing/Tolerated Gait Training Does the Patient Walk?: Yes Distance: 200' Walk 10 feet (QC): 4 Walk 50 ft with 2 Turns(QC): 4 Walk 150 ft (QC): 4 Walking 10ft/uneven surface-QC: 4 Gait Persons Needed: 1 Gait Assistive Device: FWW Pt requires 2 seat rest breaks during ambulation. VC's given for posture and FWW approximation during ambulation Stair Training #of Steps: 1 1 Step (curb) (QC): 4 4 Steps (QC): 7 12 Steps (QC): 7 Stairs: Pattern: Step to Pt refuses to complete steps d/t pt stating "I don't have any at home, I have a ramp. I have a ramp at my daughters too. I'm not doing it." Balance Picking up an Object (QC): 88 Treatments Pt d/t dc tomorrow, 07/22/2020. Quality codes tested and charted on. Gait performed. Pt lying in bed w/ bedside table and call light w/in reach and all needs met at end of tx. Assessment Current Status: Fair Progress Pt extremely self limiting and negative in regards to ability to complete bed mobility, sit<>stand, ambulation and curb step. Pt requires constant encouragement during activities. PT Short Term Goals Short Term Goals Time Frame: Jul 25, 2020 Roll Left & Right: 3 Sit to lyin Lying to sitting on side of be: 3 Sit to stand: 3 Chair/qfw-wp-xmndk transfer: 3 Toilet transfer: 3 Car transfer: 3 Walk 10 feet: 3 Walk 50 feet with two turns: 3 Walk 150 feet: 3 Walking 10ft on uneven surface: 3 PT Longterm Goals Director Personal Goals PT Director Personal Goals Time Frame: Aug 08, 2020 Roll Left & Right (QC): 5 Sit to Lying (QC): 5 Lying-Sitting on Side/Bed(QC): 5 Sit to Stand (QC): 5 Chair/Ubu-pb-Yhbpe Xfer(QC): 5 Toilet Transfer (QC): 5 Car Transfer (QC): 5 Does the Patient Walk: Yes Walk 10 feet (QC): 5 Walk 50ft with 2 Turns (QC): 5 Walk 150 ft (QC): 5 Walking 10ft on Uneven Surface: 5 1 Step (curb) (QC): 4 4 Steps (QC): 9 12 Steps (QC): 9 Picking up an Object (QC): 5 Wheel 50 feet with 2 turns (QC: 5 (if deemed necessary by therapy team) Type: Manual Wheel 150 feet: 5 Type: Manual PT Plan Problem List Problem List: Activity Tolerance, Functional Strength, Safety, Balance, Gait, Transfer, Bed Mobility Treatment/Plan Treatment Plan: Continue Plan of Care Treatment Plan: Bed Mobility, Concurrent Therapy, Education, Functional Activity Syl, Functional Strength, Group Therapy, Gait, Safety, Therapeutic Exercise, Transfers Treatment Duration: Aug 08, 2020 Frequency: Modified Program (IRF) (intensity waiver) Estimated Hrs Per Day: 1 hour per day (increase as tolerated) Patient and/or Family Agrees t: Yes Safety Risks/Education Patient Education: Gait Training, Transfer Techniques, Steps, Correct Positioning, Safety Issues Teaching Recipient: Patient Teaching Methods: Discussion Response to Teaching: Verbalize Understanding Time/GCodes Time In: 0915 Time Out: 1015 Total Billed Treatment Time: 60 Total Billed Treatment 1, GT x2 (30m), FA x2 (30m) CHAD MIKE PTA Jul 21, 2020 10:05
--- NOTE | 2020-07-21 10:57 | NUR ---
CM/SS DISCHARGE PLANNING Patient will discharge home tomorrow. HHC: Referral completed with [facility]. They have accepted patient and will begin services timely, RN/PT/OT. DME: Patient and her family will get the hip kit, there are no other new assistive devices needed. IMM2 presented, discussed, signed, charted. Patient expressed she is more than ready to leave the hospital tomorrow.
--- NOTE | 2020-07-21 12:01 | Occupational Ther Daily Note ---
OT Current Status-Daily Note Subjective Pt laying in bed sleeping, easily awoken for therapy. Pt agreeable stating she should probably use the restroom. ADL-Treatment Therapy Code Descriptions/Definitions Functional [place] Measure: 0=Not Assessed/NA 4=Minimal Assistance 1=Total Assistance 5=Supervision or Setup 2=Maximal Assistance 6=Modified [place] 3=Moderate Assistance 7=Complete IndependenceSCALE: Activities may be completed with or without assistive devices. 3-Alknjgimzg-dvzqhtm completes the activity by him/herself with no assistance from a helper. 5-Set-up or Clean-up Assistance-helper sets up or cleans up; patient completes activity. [place] assists only prior to or following the activity. 4-Supervision or Touching Assistance-helper provides verbal cues and/or touching/steadying and/or contact guard assistance as patient completes activity. Assistance may be provided throughout the activity or intermittently. 3-Partial/Moderate Assistance-helper does LESS THAN HALF the effort. [place] lifts, holds or supports trunk or limbs, but provides less than half the effort. 2-Substantial/Maximal Assistance-helper does MORE THAN HALF the effort. [place] lifts or holds trunk or limbs and provides more than half the effort. 9-Qkldbipgt-juacvv does ALL the effort. Patient does none of the effort to complete the activity. Or, the assistance of 2 or more helpers is required for the patient to complete the activity. If activity was not attempted, code reason: 7-Patient Refused. 9-Not Applicable-not attempted and the patient did not perform the activity before the current illness, exacerbation or injury. 10-Not Attempted due to Environmental Limitations-(lack of equipment, weather restraints, etc.). 88-Not Attempted due to Medical Conditions or Safety Concerns. Lower Body Dressing (QC): 4 (CGA during stand at [facility] for pant hike. Pt able to use AE as needed to doff/don pants without verbal cues) On/Off Footwear: 4 (SBA, min verbal cues in order for correct technique of sock aide.) Toileting Hygiene (QC): 4 (CGA standing at [facility] for clothing management, pt able to complete hygiene.) Toilet Transfer (QC): 4 (CGA on/off BSC over toilet.) Other Treatment Pt laying in bed, transferred supine to sit EOB with SBA. Pt then stood at FWW, ambulating into the restroom with CGA and onto toilet. Pt completed toileting, then transferred to recliner where she completed lower body dressing and footwear using AE. Pt took rest breaks as needed. Pt states she would like a pain pill but does not rate pain, OT notified nurse. Post OT tx, pt seated in recliner, call light in reach and all needs met. Education OT Patient Education: Correct positioning, Energy conservation, Modified ADL techniques, Progress toward Goal/Update tx plan, Purpose of tx/functional activities, Safety issues, Transfer techniques, Use of adapted equipment Teaching Recipient: Patient Teaching Methods: Discussion Response to Teaching: Verbalize Understanding OT Short Term Goals Short Term Goals Time Frame: Jul 21, 2020 Oral hygiene: 5 Toileting hygiene: 3 Shower/bathe self: 3 Upper body dressin Lower body dressin Putting on/taking off footwear: 3 OT Jail Goals Joinery Machinist Goals Time Frame: Aug 04, 2020 Eating (QC): 6 Oral Hygiene (QC): 6 Toileting Hygiene (QC): 6 Shower/Bathe Self (QC): 6 Upper Body Dressing (QC): 6 Lower Body Dressing (QC): 6 On/Off Footwear (QC): 6 Additional Goals: 1-Demonstrate ADL Tasks, 2-Verbalize Understanding, 3- ImproveStrength/Syl 1=Demonstrate adherence to instructed precautions during ADL tasks. 2=Patient will verbalize/demonstrate understanding of assistive devices/modifications for ADL. 3=Patient will improve strength/tolerance for activity to enable patient to perform ADL's. OT Education/Plan Problem List/Assessment Assessment: Decreased Activ Tolerance, Impaired Funct Balance, Impaired I ADL's, Impaired Self-Care Skills Discharge Recommendations Plan/Recommendations: Continue POC Treatment Plan/Plan of Care Patient would benefit from OT for education, treatment and training to promote independence in ADL's, mobility, safety and/or upper extremity function for ADL's. Plan of Care: ADL Retraining, Functional Mobility, Group Exercise/Act as Ind, UE Funct Exercise/Act Treatment Duration: Aug 04, 2020 Frequency: Modified Program (IRF) (27/05) Estimated Hrs Per Day: 1.5 hours per day Rehab Potential: Fair Time/GCodes Start Time: 11:30 Stop Time: 12:00 Total Time Billed (hr/min): 30 Billed Treatment Time 1, ADL 2 FRITZ MUIR OT Jul 21, 2020 12:01
--- NOTE | 2020-07-21 14:01 | Physical Therapy Daily Note ---
PT Daily Note-Current Subjective Pt in chair upon arrival. Pt agrees to PT tx. Pain Numeric Pain Scale: 0-No Pain Location: No Pain Reported Mental Status Patient Orientation: Person, Confused, Place, Time, Situation Attachments: [place] Transfers SCALE: Activities may be completed with or without assistive devices. 4-Xgfmlpzuif-wmnomqm completes the activity by him/herself with no assistance from a helper. 5-Set-up or Clean-up Assistance-helper sets up or cleans up; patient completes activity. [place] assists only prior to or following the activity. 4-Supervision or Touching Assistance-helper provides verbal cues and/or touching/steadying and/or contact guard assistance as patient completes activity. Assistance may be provided throughout the activity or intermittently. 3-Partial/Moderate Assistance-helper does LESS THAN HALF the effort. [place] lifts, holds or supports trunk or limbs, but provides less than half the effort. 2-Substantial/Maximal Assistance-helper does MORE THAN HALF the effort. [place] lifts or holds trunk or limbs and provides more than half the effort. 2-Acmvxetye-dmfszw does ALL the effort. Patient does none of the effort to complete the activity. Or, the assistance of 2 or more helpers is required for the patient to complete the activity. If activity was not attempted, code reason: 7-Patient Refused. 9-Not Applicable-not attempted and the patient did not perform the activity before the current illness, exacerbation or injury. 10-Not Attempted due to Environmental Limitations-(lack of equipment, weather restraints, etc.). 88-Not Attempted due to Medical Conditions or Safety Concerns. Roll Left & Right (QC): 5 Sit to Lying (QC): 5 Sit to Stand (QC): 4 Weight Bearing Right Lower Extremity: Right Weight Bearing/Tolerated Left Lower Extremity: Left Weight Bearing/Tolerated Wheelchair Training Does the Pt Use a Wheelchair?: Yes Wheel 50 ft with 2 turns (QC): 6 Wheel 150 ft (QC): 6 Type of Wheelchair: Manual Pt use BUE's and RLE to propel self in w/c. Pt refused to attempt w/ LLE. Treatments W/c mobility and bed mobility completed. Pt in bed w/ bedside table and call light w/in reach and all needs met, at end of tx. Assessment Current Status: Fair Progress Pt remains self limiting. Requires constant encouragement to complete tasks/activities. PT Short Term Goals Short Term Goals Time Frame: Jul 25, 2020 Roll Left & Right: 3 Sit to lyin Lying to sitting on side of be: 3 Sit to stand: 3 Chair/eet-dt-vjjum transfer: 3 Toilet transfer: 3 Car transfer: 3 Walk 10 feet: 3 Walk 50 feet with two turns: 3 Walk 150 feet: 3 Walking 10ft on uneven surface: 3 PT Engineering Technical Analyst Goals Engineering Technical Analyst Goals PT Engineering Technical Analyst Goals Time Frame: Aug 08, 2020 Roll Left & Right (QC): 5 Sit to Lying (QC): 5 Lying-Sitting on Side/Bed(QC): 5 Sit to Stand (QC): 5 Chair/Yob-ch-Ossjv Xfer(QC): 5 Toilet Transfer (QC): 5 Car Transfer (QC): 5 Does the Patient Walk: Yes Walk 10 feet (QC): 5 Walk 50ft with 2 Turns (QC): 5 Walk 150 ft (QC): 5 Walking 10ft on Uneven Surface: 5 1 Step (curb) (QC): 4 4 Steps (QC): 9 12 Steps (QC): 9 Picking up an Object (QC): 5 Wheel 50 feet with 2 turns (QC: 5 (if deemed necessary by therapy team) Type: Manual Wheel 150 feet: 5 Type: Manual PT Plan Problem List Problem List: Activity Tolerance, Functional Strength, Safety, Transfer, Bed Mobility Treatment/Plan Treatment Plan: Continue Plan of Care Treatment Plan: Bed Mobility, Concurrent Therapy, Education, Functional Activity Syl, Functional Strength, Group Therapy, Gait, Safety, Therapeutic Exercise, Transfers Treatment Duration: Aug 08, 2020 Frequency: Modified Program (IRF) (intensity waiver) Estimated Hrs Per Day: 1 hour per day (increase as tolerated) Patient and/or Family Agrees t: Yes Safety Risks/Education Patient Education: Correct Positioning, W/C Management, Safety Issues Teaching Recipient: Patient Teaching Methods: Discussion Response to Teaching: Verbalize Understanding, Reinforcement Needed Time/GCodes Time In: 1330 Time Out: 1400 Total Billed Treatment Time: 30 Total Billed Treatment 1, FA x1 (15m), WC x1 (15m) CHAD MIKE DAY HABILITATION SPECIALIST Jul 21, 2020 14:01
--- NOTE | 2020-07-21 14:48 | Cardiology Progress Note ---
Cardiology SOAP Progress Note Subjective: No cardiac complaints. Objective: I&O/Vital Signs 07/21/20 07/21/20 06:00 09:00 Temp 37.0 Pulse 73 Resp 16 B/P (MAP) 156/72 (100) Pulse Ox 97 97 O2 Delivery Room Air Room Air 07/21/20 00:00 Intake Total 960 ml Balance 960 ml Weight (Pounds): 129 Weight (Ounces): 8.0 Weight (Calculated Kilograms): 58.416548 Constitutional: AAO x 3, well-developed, well-nourished Respiratory: No accessory muscle use; other (good bilat air entry) Cardiovascular: regular rate-rhythm, S1 and S2, systolic murmur (soft SARAI at card base) Gastrointestional: No tender; soft; No guarding; audible bowel sounds Extremities: No clubbing, No cyanosis, No significant edema Neurologic/Psychiatric: oriented x 3, other (moves all limbs equally) Skin: No rash on exposed areas, No ulcerations on exposed areas A/P: Assessment/Dx: Labile hypertension and episodes of orthostatic hypotension (demonstrated during this hospitalization). Diltiazem d/c'd during this hospitalization. stable. Syncopal episode of undetermined etiology Jul 02, 2020, likely due to postural hypotension. No significant arrhythmia seen on ILR on 07/02/20 S/p L hip fracture repair per Dr. Woodward on Jul 02, 2020 following a syncopal fall S/p ILR on 03/24/20 (after syncope in March 2020) that has shown PAF w RVR w/o significant bradycardia so far Paroxysmal atrial flutter, first documented on tele strips on 02/11/18 Probable TIA on 02/11/18, resulting in transient R foot numbness/weakness leading to fall and fracture of the R 5th metatarsal, managed by her pcp Lena for stroke prophylaxis MPI of March 20, 2018 showed no evidence of ischemia or infarction. LVEF 80% Echocardiogram of February 12, 2018 showed LVEF 65-70%. Mild aortic regurg. Mod TR. PASP 35 mmHg. Trivial MR. Carotid u/s of 03/19/20 showed minimal bilat carotid plaque TSH normal (0.73) on lab work of 02/12/18 Plan: * Continue current regimen * Monitor labs from time to time Thank you for your consultation. Please call me if you have any questions. Eliana Knutson MD, FACP, FACC, FSCAI, FHRS, CCDS Interventional Cardiology Cardiac Electrophysiology Vascular Medicine and Endovascular Interventions Arturo KNUTSON MD Jul 21, 2020 14:47
--- NOTE | 2020-07-21 17:35 | NUR ---
Notified Dr Knutson pt and pts daughter concerned of pt with dizziness and lightheadedness upon getting up. "Does not ever happen when lying in bed, only when I get up." Pt to be discharged tomorrow. B/P 144/65 at present time. Instructed and educated pt and pts daughter on orthostatic hypotension. Pt verbalized understanding.
[2020-07-21 18:00] VITALS: BP 144/65
--- NOTE | 2020-07-21 19:11 | NUR ---
bedside report received from ALYSSA WEIR, assume care of pt
[2020-07-21] MEDS: oxyCODONE/APAP 5/325MG (PERCOCET 5) TABLET PO PRN (21:14)
[2020-07-21] MEDS: ALPRAZolam 0.25 MG (XANAX) TAB PO SCH (21:14)
--- NOTE | 2020-07-21 21:14 | NUR ---
pt took miralax but refused Colace & Senokot, c/o lt hip pain level, pain level 7/10 on numeric Percocet 5/325 1 tab given
--- NOTE | 2020-07-21 22:05 | NUR ---
resting Quietly in bed, pain level 0/10 on CNPI SCALE
[2020-07-22 05:20] VITALS: BP 150/71
[2020-07-22] MEDS: CATHETER FLUSH 10 ML SYR IV SCH (06:32)
[2020-07-22] MEDS: KCL 10 MEQ TAB (MICRO K) PO SCH (06:58)
[2020-07-22] MEDS: polyethylene glycoL POWDER 17 GM (MIRALAX) PACK PO SCH (07:47)
[2020-07-22] MEDS ORDERED: FLDR.1T PO (08:22)
[2020-07-22] MEDS ORDERED: OXYC1TAB87 PO (08:22)
[2020-07-22] MEDS ORDERED: POTA10TA6 PO (08:22)
[2020-07-22] MEDS ORDERED: DIGO125T18 PO (08:22)
--- NOTE | 2020-07-22 08:24 | D/C HH Face to Face Order ---
D/C Face to Face Orders Reconcile Patient Problems Problems Reviewed?: Yes Instructions for Patient Home Health Patient Instructions/FollowUp: PCP 1 week Physician to follow Patient: PCP Discharge Diet for Home: No Restrictions Patient Problems: Hip fx Orthostasis Patient Data-Allergies,Ht & Wt Patient Allergies: Coded Allergies: amoxicillin (Verified Allergy, Unknown, pt has rec Rocephin and Ancef in the past, 07/02/20) clavulanic acid (Verified Allergy, Unknown, 07/02/20) morphine (Verified Adverse Reaction, Unknown, knocks her out, 03/16/20) Height (Feet): 5 Height (Inches): 5.00 Weight (Pounds): 129 Weight (Ounces): 8.0 Home Health Need/Face to Face Date of Face to Face: Jul 22, 2020 Clinical Findings: Generalized weakness and fatigue, Instability, Muscle weakness, Pain with ambulation, Unsteady gait I have seen Pt loor-bc-ipks: Yes Discharged To: Home Diagnosis/Conditions: Hip fx Orthostasis Patient is Homebound due to: [place] fall risk due to instabilty, Muscle weakness, Pain w/ambulation Homebound Status Due to the above stated illness, injury or surgical procedure (medical condition or diagnosis) and associated clinical findings, the patient is homeb ound because of his/her inability to leave home except with aid of a supportive device and/or person AND leaving the home requires a considerable and taxing effort or is medically contraindicated. Pt req the following assistanc: [facility] Nursing Orders Home Health Services Order: Nursing Services, Investor Relations Manager-Evaluate & Treat, Physical Therapy-Evaluate & Treat Home Health Infusion Therapy Line Start Date: Jul 10, 2020 Certify Stmt I certify that this patient is under my care and that I, a nurse practitioner or a physician; a library media assistant working with me, had a face to face encounter that - meets the physician face to face encounter requirements with this patient as dated. JOVANI CAVAZOS DO Jul 22, 2020 08:24
--- NOTE | 2020-07-22 08:25 | Discharge Summary ---
Diagnosis/Chief Complaint Date of Admission Jul 07, 2020 at 15:05 Date of Discharge Discharge Date: Jul 22, 2020 Discharge Diagnosis Assess & Plan/Chief Complaint Assessment per Cardiology assessment with my modifications: Labile hypertension and episodes of orthostatic hypotension (demonstrated during this hospitalization). Diltiazem d/c'd during this hospitalization Syncopal episode of undetermined etiology Jul 02, 2020, likely due to postural hypotension. No significant arrhythmia seen on ILR on 07/02/20 S/P L hip fracture repair per Dr. Woodward on Jul 02, 2020 following a syncopal fall S/P ILR on 03/24/20 (after syncope in March 2020) that has shown PAF w RVR w/o significant bradycardia so far Paroxysmal atrial flutter, first documented on tele strips on 02/11/18 Probable TIA on 02/11/18, resulting in transient R foot numbness/weakness leading to fall and fracture of the R 5th metatarsal, managed by her pcp Lena for stroke prophylaxis MPI of March 20, 2018 showed no evidence of ischemia or infarction. LVEF 80% Echocardiogram of February 12, 2018 showed LVEF 65-70%. Mild aortic regurg. Mod TR. PASP 35 mmHg. Trivial MR. Carotid u/s of 03/19/20 showed minimal bilat carotid plaque TSH normal (0.73) on lab work of 02/12/18 Plan: Because of demonstration of orthostatic hypotension, we have stopped long-acting dilt and are using dig for vent rate control during episodes of AF Continue OAC with Eliquis for stroke prophylaxis Monitor labs from time to time IRF protocol Pain control BM regimen 07/08/20: Monitor incontinence Monitor sleepiness Monitor sodium level 07/09/20: Monitor blood pressure Appreciate cardiology Orthostatic hypotension likely will require wheelchair permanently due to fall risk 07/10/20: Maintain iron infusion Maintain midline Bowel regimen Consult gynecology for pessary 07/11/20: Monitor rectal prolapse Monitor BP and orthostasis 07/12/20: Monitor pain Check labs in am Monitor orthostasis 07/13/20: Complete iron infusion Dressing change per ortho Continue to motivate patient to participate 07/14/20: Continue bowel regimen Increase independence with ADL Monitor for emesis recurrence 07/15/20: Continue all therapy Team conference to decide on disposition discharge Monitor closely 07/16/20: Encourage motivation to participate in therapy Maintain bowel regimen Seems to be getting back to baseline 07/17/20: Poor motivation noted Maintain current treatment 07/18/20: Incontinence care Monitor pain BM regimen 07/19/20: Pain control Monitor incontinence 07/20/20: Labs reviewed Pain control Fall risk DC 07/21/20: Discharge Monday Refuses to turn and she has decubitus ulcer (1) Closed left hip fracture Status: Acute (2) Fall Status: Acute (3) Syncope Status: Acute (4) Orthostatic hypotension (5) GERD (gastroesophageal reflux disease) Status: Chronic (6) Anxiety Status: Chronic (7) Atrial fibrillation with controlled ventricular rate Discharge Summary Discharge Physical Examination Allergies: Coded Allergies: amoxicillin (Verified Allergy, Unknown, pt has rec Rocephin and Ancef in the past, 07/02/20) clavulanic acid (Verified Allergy, Unknown, 07/02/20) morphine (Verified Adverse Reaction, Unknown, knocks her out, 03/16/20) Vitals & I&Os Vital Signs Date Time Temp Pulse Resp B/P (MAP) Pulse Ox O2 Delivery O2 Flow Rate FiO2 07/22/20 11:35 36.8 70 18 150/71 97 Room Air General Appearance: Alert, Oriented X3, Cooperative Respiratory: Clear to Auscultation Cardiovascular: Regular Rate Psych/Mental Status: Mental Status NL Hospital Course Was the Problem List Reviewed?: Yes Hospital course: Pt had an uneventful hospital course for 15 days after being admitted for left hip fracture and severe debility. Orthostatic hypotension limited how much therapy she was able to participate in. Labs remained stable, Pt completed IV iron for post-op acute blood loss anemia and cardiology monitored her closely. Overall bowel function returned back to normal and was overall ready for discharge and was discharged to home with home care with her daughter with close follow-up. Labs (last 24 hrs) Laboratory Tests 07/08/20 04:35: White Blood Count 8.6, Red Blood Count 2.71L, Hemoglobin 9.1L, Hematocrit 27L, Mean Corpuscular Volume 99, Mean Corpuscular Hemoglobin 34, Mean Corpuscular Hemoglobin Concent 34, Red Cell Distribution Width 13.1, Platelet Count 294, Mean Platelet Volume 9.5, Neutrophils (%) (Auto) 72, Lymphocytes (%) (Auto) 15, Monocytes (%) (Auto) 12, Eosinophils (%) (Auto) 2, Basophils (%) (Auto) 0, Neutrophils # (Auto) 6.2, Lymphocytes # (Auto) 1.3, Monocytes # (Auto) 1.0, Eosinophils # (Auto) 0.2, Basophils # (Auto) 0.0, Sodium Level 130L, Potassium Level 4.3, Chloride Level 94L, Carbon Dioxide Level 26, Anion Gap 10, Blood Urea Nitrogen 15, Creatinine 0.66, Estimat Glomerular Filtration Rate > 60, BUN/Creatinine Ratio 23, Glucose Level 111H, Calcium Level 8.2L, Corrected Calc ium 8.8, Iron Level 33L, Total Bilirubin 0.8, Aspartate Amino Transf (AST/SGOT) 14, Alanine Aminotransferase (ALT/SGPT) 12, Alkaline Phosphatase 51, Total Protein 5.7L, Albumin 3.2 07/13/20 05:50: White Blood Count 7.6, Red Blood Count 2.58L, Hemoglobin 8.5L, Hematocrit 26L, Mean Corpuscular Volume 101H, Mean Corpuscular Hemoglobin 33, Mean Corpuscular Hemoglobin Concent 33, Red Cell Distribution Width 13.9, Platelet Count 433H, Mean Platelet Volume 8.3, Neutrophils (%) (Auto) 67, Lymphocytes (%) (Auto) 19, Monocytes (%) (Auto) 12, Eosinophils (%) (Auto) 2, Basophils (%) (Auto) 0, Neutrophils # (Auto) 5.1, Lymphocytes # (Auto) 1.4, Monocytes # (Auto) 0.9, Eosinophils # (Auto) 0.2, Basophils # (Auto) 0.0, Sodium Level 135, Potassium Level 3.7, Chloride Level 102, Carbon Dioxide Level 25, Anion Gap 8, Blood Urea Nitrogen 10, Creatinine 0.57L, Estimat Glomerular Filtration Rate > 60, BUN/Creatinine Ratio 18, Glucose Level 107H, Calcium Level 8.2L, Corrected Calcium 8.9, Total Bilirubin 0.5, Aspartate Amino Transf (AST/SGOT) 13, Alanine Aminotransferase (ALT/SGPT) 8, Alkaline Phosphatase 57, Total Protein 5.2L, Albumin 3.1L 07/17/20 09:19: Glucometer 117H 07/17/20 11:55: White Blood Count 9.6, Red Blood Count 2.73L, Hemoglobin 9.1L, Hematocrit 28L, Mean Corpuscular Volume 103H, Mean Corpuscular Hemoglobin 33, Mean Corpuscular Hemoglobin Concent 32, Red Cell Distribution Width 15.0H, Platelet Count 419H, Mean Platelet Volume 9.0, Sodium Level 131L, Potassium Level 4.2, Chloride Level 98, Carbon Dioxide Level 24, Anion Gap 9, Blood Urea Nitrogen 9, Creatinine 0.58L, Estimat Glomerular Filtration Rate > 60, BUN/Creatinine Ratio 16, Glucose Level 107H, Calcium Level 8.1L, Corrected Calcium 8.6, Total Bilirubin 0.6, Aspartate Amino Transf (AST/SGOT) 18, Alanine Aminotransferase (ALT/SGPT) 9, Alkaline Phosphatase 67, Total Protein 6.0L, Albumin 3.4 07/20/20 08:25: White Blood Count 7.1, Red Blood Count 2.95L, Hemoglobin 10.0L, Hematocrit 31L, Mean Corpuscular Volume 105H, Mean Corpuscular Hemoglobin 34, Mean Corpuscular Hemoglobin Concent 32, Red Cell Distribution Width 15.1H, Platelet Count 425H, Mean Platelet Volume 9.4, Neutrophils (%) (Auto) 78H, Lymphocytes (%) (Auto) 12, Monocytes (%) (Auto) 9, Eosinophils (%) (Auto) 1, Basophils (%) (Auto) 0, Neutrophils # (Auto) 5.5, Lymphocytes # (Auto) 0.9L, Monocytes # (Auto) 0.6, Eosinophils # (Auto) 0.1, Basophils # (Auto) 0.0, Sodium Level 135, Potassium Level 3.5L, Chloride Level 100, Carbon Dioxide Level 27, Anion Gap 8, Blood Urea Nitrogen 6L, Creatinine 0.60, Estimat Glomerular Filtration Rate > 60, BUN/Creatinine Ratio 10, Glucose Level 116H, Calcium Level 8.3L, Corrected Calcium 8.7, Total Bilirubin 0.5, Aspartate Amino Transf (AST/SGOT) 10, Alanine Aminotransferase (ALT/SGPT) 7, Alkaline Phosphatase 74, Total Protein 6.0L, Albumin 3.5 Pending Labs Laboratory Tests 07/08/20 04:35: White Blood Count 8.6, Red Blood Count 2.71, Hemoglobin 9.1, Hematocrit 27, Mean Corpuscular Volume 99, Mean Corpuscular Hemoglobin 34, Mean Corpuscular Hemoglobin Concent 34, Red Cell Distribution Width 13.1, Platelet Count 294, Mean Platelet Volume 9.5, Neutrophils (%) (Auto) 72, Lymphocytes (%) (Auto) 15, Monocytes (%) (Auto) 12, Eosinophils (%) (Auto) 2, Basophils (%) (Auto) 0, Neutrophils # (Auto) 6.2, Lymphocytes # (Auto) 1.3, Monocytes # (Auto) 1.0, Eosinophils # (Auto) 0.2, Basophils # (Auto) 0.0, Sodium Level 130, Potassium Level 4.3, Chloride Level 94, Carbon Dioxide Level 26, Anion Gap 10, Blood Urea Nitrogen 15, Creatinine 0.66, Estimat Glomerular Filtration Rate > 60, BUN/Creatinine Ratio 23, Glucose Level 111, Calcium Level 8.2, Corrected Calcium 8.8, Iron Level 33, Total Bilirubin 0.8, Aspartate Amino Transf (AST/SGOT) 14, Alanine Aminotransferase (ALT/SGPT) 12, Alkaline Phosphatase 51, Total Protein 5.7, Albumin 3.2 07/13/20 05:50: White Blood Count 7.6, Red Blood Count 2.58, Hemoglobin 8.5, Hematocrit 26, Mean Corpuscular Volume 101, Mean Corpuscular Hemoglobin 33, Mean Corpuscular Hemoglobin Concent 33, Red Cell Distribution Width 13.9, Platelet Count 433, Mean Platelet Volume 8.3, Neutrophils (%) (Auto) 67, Lymphocytes (%) (Auto) 19, Monocytes (%) (Auto) 12, Eosinophils (%) (Auto) 2, Basophils (%) (Auto) 0, Neutrophils # (Auto) 5.1, Lymphocytes # (Auto) 1.4, Monocytes # (Auto) 0.9, Eosinophils # (Auto) 0.2, Basophils # (Auto) 0.0, Sodium Level 135, Potassium Level 3.7, Chloride Level 102, Carbon Dioxide Level 25, Anion Gap 8, Blood Urea Nitrogen 10, Creatinine 0.57, Estimat Glomerular Filtration Rate > 60, BUN/Creatinine Ratio 18, Glucose Level 107, Calcium Level 8.2, Corrected Calcium 8.9, Total Bilirubin 0.5, Aspartate Amino Transf (AST/SGOT) 13, Alanine Aminotransferase (ALT/SGPT) 8, Alkaline Phosphatase 57, Total Protein 5.2, Albumin 3.1 07/17/20 09:19: Glucometer 117 07/17/20 11:55: White Blood Count 9.6, Red Blood Count 2.73, Hemoglobin 9.1, Hematocrit 28, Mean Corpuscular Volume 103, Mean Corpuscular Hemoglobin 33, Mean Corpuscular Hemoglobin Concent 32, Red Cell Distribution Width 15.0, Platelet Count 419, Mean Platelet Volume 9.0, Sodium Level 131, Potassium Level 4.2, Chloride Level 98, Carbon Dioxide Level 24, Anion Gap 9, Blood Urea Nitrogen 9, Creatinine 0.58, Estimat Glomerular Filtration Rate > 60, BUN/Creatinine Ratio 16, Glucose Level 107, Calcium Level 8.1, Corrected Calcium 8.6, Total Bilirubin 0.6, Aspartate Amino Transf (AST/SGOT) 18, Alanine Aminotransferase (ALT/SGPT) 9, Alkaline Phosphatase 67, Total Protein 6.0, Albumin 3.4 07/20/20 08:25: White Blood Count 7.1, Red Blood Count 2.95, Hemoglobin 10.0, Hematocrit 31, Mean Corpuscular Volume 105, Mean Corpuscular Hemoglobin 34, Mean Corpuscular Hemoglobin Concent 32, Red Cell Distribution Width 15.1, Platelet Count 425, M judi Platelet Volume 9.4, Neutrophils (%) (Auto) 78, Lymphocytes (%) (Auto) 12, Monocytes (%) (Auto) 9, Eosinophils (%) (Auto) 1, Basophils (%) (Auto) 0, Neutrophils # (Auto) 5.5, Lymphocytes # (Auto) 0.9, Monocytes # (Auto) 0.6, Eosinophils # (Auto) 0.1, Basophils # (Auto) 0.0, Sodium Level 135, Potassium Level 3.5, Chloride Level 100, Carbon Dioxide Level 27, Anion Gap 8, Blood Urea Nitrogen 6, Creatinine 0.60, Estimat Glomerular Filtration Rate > 60, BUN/Creatinine Ratio 10, Glucose Level 116, Calcium Level 8.3, Corrected Calcium 8.7, Total Bilirubin 0.5, Aspartate Amino Transf (AST/SGOT) 10, Alanine Aminotransferase (ALT/SGPT) 7, Alkaline Phosphatase 74, Total Protein 6.0, Albumin 3.5 Discharge Home Medications: Active Scripts Active Fludrocortisone Acetate 0.1 Mg Tab 0.1 Mg PO DAILY Klor-Con 10 (Potassium Chloride) 10 Meq Tablet.er 10 Meq PO DAILY@0700 Percocet 5-325 mg Tablet (Oxycodone HCl/Acetaminophen) 1 Each Tablet 1 Tab PO Q4H PRN Digox (Digoxin) 125 Mcg Tablet 0.125 Mg PO DAILY Reported Vitamin C (Ascorbic Acid) 500 Mg Tab.chew 500 Mg PO 1900 Cranberry (Cranberry Fruit) 450 Mg Tablet 450 Mg PO BID Loratadine 10 Mg Tablet 10 Mg PO DAILY Fluconazole 200 Mg Tablet 200 Mg PO SATU TAKES ONCE WEEKLY ON MONDAY Eliquis (Apixaban) 5 Mg Tablet 2.5 Mg PO BID TAKES OF A 5MG TAB Mupirocin 22 Gm Oint...g. 1 Applic TOP BID PRN Nitrofurantoin (Nitrofurantoin Macrocrystal) 100 Mg Capsule 100 Mg PO Q48H TAKES AT 1900 Black Elderberry 575 mg Cap (Elderberry Fruit and Flower) 1 Each Capsule 2 Each PO 1300 Omeprazole 20 Mg Tablet.dr 20 Mg PO DAILY Melatonin 5 Mg Tablet 5 Mg PO HS Iron (Ferrous Sulfate) 325 Mg Tablet 325 Mg PO 1300 Tylenol Extra Strength (Acetaminophen) 500 Mg Tablet 1,000 Mg PO HS Tylenol Extra Strength (Acetaminophen) 500 Mg Tablet 500 Mg PO 0900,1300 Alprazolam 0.25 Mg Tablet 0.25 Mg PO HS Melatonin 3 Mg Tablet 3 Mg PO 1900 Instructions to patient/family Please see electronic discharge instructions given to patient. Diagnosis/Problems Diagnosis/Problems (1) Closed left hip fracture Status: Acute (2) Fall Status: Acute (3) Syncope Status: Acute (4) Orthostatic hypotension (5) GERD (gastroesophageal reflux disease) Status: Chronic (6) Anxiety Status: Chronic (7) Atrial fibrillation with controlled ventricular rate Clinical Quality Measures DVT/VTE Risk/Contraindication: Risk Factor Score Per Nursin RFS Level Per Nursing on Admit: 4+=Very High JOVANI CAVAZOS DO Jul 22, 2020 08:25
--- NOTE | 2020-07-22 08:26 | Cardiology Progress Note ---
Subjective Date Seen by Provider: Jul 22, 2020 Time Seen by Provider: 08:22 Subjective/Events-last exam Patient sitting up in bed, no new complaints. Denies any dizziness. Denies chest pain or palpitations. Objective-Cardiology Exam Last Set of Vital Signs Vital Signs 07/22/20 05:20 Temp 36.8 Pulse 70 Resp 18 B/P (MAP) 150/71 (97) Pulse Ox 96 O2 Delivery Room Air Capillary Refill : Less Than 3 SecondsLess Than 3 Seconds I&O Intake and Output 07/22/20 00:00 Intake Total 1500 ml Balance 1500 ml Intake Oral 1500 ml # Urine Diapers 6 # Bowel Movements 1 General: Alert, Oriented X3, Cooperative HEENT: Atraumatic, PERRLA Neck: Supple, No JVD, No Thyromegaly Lungs: Clear to Auscultation, Normal Air Movement Heart: Regular Rate, Normal S1, Normal S2, No Murmurs Abdomen: Normal Bowel Sounds, Soft, No Tenderness, No Hepatosplenomegaly, No Masses Extremities: Other (trace edema LLE) Neuro: Normal Speech, Cranial Nerves 3-12 NL Psych/Mental Status: Mental Status NL, Mood NL A/P-Cardiology Admission Diagnosis Labile HTN Syncope L hip fx Paroxysmal atrial flutter Assessment/Plan Labile hypertension and episodes of orthostatic hypotension (demonstrated during this hospitalization). Diltiazem d/c'd during this hospitalization. Currently on Florinef. Continue on current medication and continue to monitor. Syncopal episode of undetermined etiology Jul 02, 2020, likely due to postural hypotension. No significant arrhythmia seen on ILR on 07/02/20 S/p L hip fracture repair per Dr. Woodward on Jul 02, 2020 following a syncopal f all S/p ILR on 03/24/20 (after syncope in March 2020) that has shown PAF w RVR w/o significant bradycardia so far Paroxysmal atrial flutter, first documented on tele strips on 02/11/18, maintained on Eliquis Probable TIA on 02/11/18, resulting in transient R foot numbness/weakness leading to fall and fracture of the R 5th metatarsal, managed by her pcp MPI of March 20, 2018 showed no evidence of ischemia or infarction. LVEF 80% Echocardiogram of February 12, 2018 showed LVEF 65-70%. Mild aortic regurg. Mod TR. PASP 35 mmHg. Trivial MR. Carotid u/s of 03/19/20 showed minimal bilat carotid plaque Clinical Quality Measures DVT/VTE Risk/Contraindication: Risk Factor Score Per Nursin RFS Level Per Nursing on Admit: 4+=Very High SARAHI RIVERA Jul 22, 2020 08:26
--- NOTE | 2020-07-22 08:31 | Progress Note ---
Standard Progress Note Progress Notes/Assess & Plan Date Seen by a Provider: Jul 22, 2020 Time Seen by a Provider: 08:31 Progress/Assessment & Plan no complaints Vital Signs Date Time Temp Pulse Resp B/P (MAP) Pulse Ox O2 Delivery O2 Flow Rate FiO2 07/08/20 06:05 36.5 85 20 149/68 (95) 92 Room Air 07/07/20 22:18 Room Air 07/07/20 20:00 Room Air 07/07/20 15:50 Room Air 07/07/20 15:29 36.2 91 16 135/68 98 Room Air 07/07/20 15:28 36.2 91 16 135/68 (90) 98 Room Air I & O 07/08/20 07:00 Intake Total 840 ml Balance 840 ml Laboratory Tests Test 07/08/20 04:35 Range/Units White Blood Count 8.6 4.3-11.0 10^3/uL Red Blood Count 2.71 L 4.35-5.85 10^6/uL Hemoglobin 9.1 L 11.5-16.0 G/DL Hematocrit 27 L 35-52 % Mean Corpuscular Volume 99 80-99 FL Mean Corpuscular Hemoglobin 34 25-34 PG Mean Corpuscular Hemoglobin Concent 34 32-36 G/DL Red Cell Distribution Width 13.1 10.0-14.5 % Platelet Count 294 130-400 10^3/uL Mean Platelet Volume 9.5 7.4-10.4 FL Neutrophils (%) (Auto) 72 42-75 % Lymphocytes (%) (Auto) 15 12-44 % Monocytes (%) (Auto) 12 0-12 % Eosinophils (%) (Auto) 2 0-10 % Basophils (%) (Auto) 0 0-10 % Neutrophils # (Auto) 6.2 1.8-7.8 X 10^3 Lymphocytes # (Auto) 1.3 1.0-4.0 X 10^3 Monocytes # (Auto) 1.0 0.0-1.0 X 10^3 Eosinophils # (Auto) 0.2 0.0-0.3 10^3/uL Basophils # (Auto) 0.0 0.0-0.1 10^3/uL Sodium Level 130 L 135-145 MMOL/L Potassium Level 4.3 3.6-5.0 MMOL/L Chloride Level 94 L 98-107 MMOL/L Carbon Dioxide Level 26 21-32 MMOL/L Anion Gap 10 5-14 MMOL/L Blood Urea Nitrogen 15 7-18 MG/DL Creatinine 0.66 0.60-1.30 MG/DL Estimat Glomerular Filtration Rate > 60 BUN/Creatinine Ratio 23 Glucose Level 111 H 70-105 MG/DL Calcium Level 8.2 L 8.5-10.1 MG/DL Corrected Calcium 8.8 8.5-10.1 MG/DL Total Bilirubin 0.8 0.1-1.0 MG/DL Aspartate Amino Transf (AST/SGOT) 14 5-34 U/L Alanine Aminotransferase (ALT/SGPT) 12 0-55 U/L Alkaline Phosphatase 51 40-136 U/L Total Protein 5.7 L 6.4-8.2 GM/DL Albumin 3.2 3.2-4.5 GM/DL working with PT/OT and standing at bedside reports minimal hip pain s/p L hip bipolar continue mobilizing Final Diagnosis going home today LLE without change FU with me in three weeks SILKE BRAGG MD Jul 22, 2020 08:31
[2020-07-22] MEDS: ACETAMINOPHEN 325 MG TABLET PO PRN (08:59)
[2020-07-22] MEDS: APIXABAN 5 MG (ELIQUIS) TABLET PO SCH (08:59)
[2020-07-22] MEDS: DOCUSATE SODIUM 100 MG (COLACE) CAP PO SCH (08:59)
[2020-07-22] MEDS: FLUDROCORTISONE 0.1 MG (FLORINEF) TAB PO SCH (08:59)
[2020-07-22] MEDS: DIGOXIN 0.125 MG (LANOXIN) TAB PO SCH (08:59)
[2020-07-22] MEDS: SENNOSIDES 8.6 MG (SENOKOT) TAB PO SCH (08:59)
[2020-07-22] MEDS: PANTOPRAZOLE 20 MG TABLET (PROTONIX) PO SCH (08:59)
[2020-07-22] MEDS: MICONAZOLE 2% POWDER (DESENEX AF) 90 GM TOP SCH (09:00)
[2020-07-22] MEDS: NYSTATIN CREAM (MYCOSTATIN) 30 GM TUBE TP SCH (09:00)
--- NOTE | 2020-07-22 09:01 | Therapy Team Discharge Summary ---
Therapy Discharge Summary Discharge Recommendations Date of Discharge 07/22/2020 Therapy D/C Recommendations: Physical Therapy Home Care Physical Therapy This patient admitted to ARU post acute hospital stay secondary to fll that resulted in a left hip fracture. Post repair, she transferred to ARU. Prior to the fall, she had been at a mod indep level of mobility with a FWW living in an "apartment" attached to her son's home. Upon admission, she was max to dependent with bed mobility and transfers and was only able to to take 3 steps with FWW with heavy assist. Treatment has consisted of funcitonal strength, balance and activity progression. She is Supervision with bed mobility and SBA with transfers and gait, walking 200 ft with FWW; she was able to go up/down a curb step for assessment. She reports she does not ever do steps and declined further assessment. Pt has made good progress. Goals not fully met. Recommend continued skilled therapy services at home through [facility]. DC from [facility] at this time. Occupational Therapy Decreased Activ Tolerance, Impaired Funct Balance, Impaired I ADL's, Impaired Self-Care Skills PT Longterm Goals Skip Miner Blasting Goals PT Longterm Goals Time Frame: Aug 08, 2020 Roll Left to Right (QC): 5 (met) Sit to Lying (QC): 5 (met) Lying-Sitting on Side/Bed(QC): 5 (met) Sit to Stand (QC): 5 Chair/[id number] Xfer(QC): 5 Car Transfer (QC): 5 Does the Patient Walk: Yes Walk 10 feet (QC): 5 Walk 10ft-Uneven Surface(QC): 5 Walk 50ft with 2 Turns (QC): 5 Walk 150 ft (QC): 5 Wheel 50 feet with 2 turns (QC: 5 (if deemed necessary by therapy team) 1 Step (curb) (QC): 4 4 Steps (QC): 9 12 Steps (QC): 9 Picking up an Object (QC): 5 Pt is at SBA level with transfers, gait and on a curb step; goal not fully met. OT Longterm Goals Skip Miner Blasting Goals Time Frame: Aug 04, 2020 Eating (QC): 6 Oral Hygiene (QC): 6 Shower/Bathe Self (QC): 6 Upper Body Dressing (QC): 6 Lower Body Dressing (QC): 6 On/Off Footwear (QC): 6 Toileting Hygiene (QC): 6 Toilet/Commode Transfer (QC): 5 Additional Goals: 1-Demonstrate ADL Tasks, 2-Verbalize Understanding, 3- ImproveStrength/Syl 1=Demonstrate adherence to instructed precautions during ADL tasks. 2=Patient will verbalize/demonstrate understanding of assistive devices/modifications for ADL. 3=Patient will improve strength/tolerance for activity to enable patient to perform ADL's. TERESA ECKERT PT Jul 22, 2020 09:01
--- NOTE | 2020-07-22 10:04 | NUR ---
CM/SS DISCHARGE Patient discharged as planned. Updated [facility] agency re same. Visited with MILTON Arroyo yesterday, patient will return initially to her home that is attached to [facility]. Patient's daughter Corazon Ernst is in the process of rearranging her home to accommodate patient and she will eventually continue her recuperation there. Family understands to update [facility] of any change of address for continuation of services.
--- NOTE | 2020-07-22 10:58 | Therapy Team Discharge Summary ---
Therapy Discharge Summary Discharge Recommendations Date of Discharge Therapy D/C Recommendations: Physical Therapy Home Care Occupational Therapy Pt admitted to ARU s/p hip repair after a fall resulting in L hip fracture. Pt lives at home in a house attached to her son's home, she was independent with bathing, dressing, and toileting but has assistance wtih meals and cleaning. She has family close by that check on her each day. At evaluation, pt was independent with feeding, min A oral hygiene, total assist showering with assistance x2, set up with upper body dressing, total assist lower body dressing, max A footwear, and total assist with toileting. OT txs focused on i ncreasing safety and independence with ADLs while maintaining hip precautions, education on AE for lower body dressing, and increasing safety with functional mobility. At discharge, pt was independent with feeding, required set up assistance with oral care, CGA showering, set up upper body dressing, CGA lower body dressing, SBA footwear, and CGA toileting. Pt met goal of independent with feeding, she did not meet other goals but made progress towards them. AE recommendations include a hip kit. Decreased Activ Tolerance, Impaired Funct Balance, Impaired I ADL's, Impaired Self-Care Skills PT Pediatric Urologist Goals Senior Living Goals PT Pediatric Urologist Goals Time Frame: Aug 08, 2020 Roll Left to Right (QC): 5 (met) Sit to Lying (QC): 5 (met) Lying-Sitting on Side/Bed(QC): 5 (met) Sit to Stand (QC): 5 Chair/[id number] Xfer(QC): 5 Car Transfer (QC): 5 Does the Patient Walk: Yes Walk 10 feet (QC): 5 Walk 10ft-Uneven Surface(QC): 5 Walk 50ft with 2 Turns (QC): 5 Walk 150 ft (QC): 5 Wheel 50 feet with 2 turns (QC: 5 (if deemed necessary by therapy team) 1 Step (curb) (QC): 4 4 Steps (QC): 9 12 Steps (QC): 9 Picking up an Object (QC): 5 OT Senior Living Goals Pediatric Urologist Goals Time Frame: Aug 04, 2020 Eating (QC): 6 (met) Oral Hygiene (QC): 6 (not met) Shower/Bathe Self (QC): 6 (not met) Upper Body Dressing (QC): 6 (not met) Lower Body Dressing (QC): 6 (not met) On/Off Footwear (QC): 6 (not met) Toileting Hygiene (QC): 6 (not met) Toilet/Commode Transfer (QC): 5 (not met) Additional Goals: 1-Demonstrate ADL Tasks, 2-Verbalize Understanding, 3- ImproveStrength/Syl 1=Demonstrate adherence to instructed precautions during ADL tasks. 2=Patient will verbalize/demonstrate understanding of assistive devices/modifications for ADL. 3=Patient will improve strength/tolerance for activity to enable patient to perform ADL's. FRITZ MUIR OT Jul 22, 2020 10:58
--- NOTE | 2020-07-22 11:30 | NUR ---
MARY GALLEGO Chen demonstrates understanding of discharge instructions and accurately returns instructions upon questioning. Copy of Post-Discharge Instructions given to pt and daughter. MARY GALLEGO Chen is not able to manage continuing needs after discharge and will have daughter stay with pt and to receive home therapy. Patients belongings returned to . Patient discharged from 222[facility]1 on 07-22-2020 at 1130. MARY GALLEGO left floor via w/c, accompanied by daughter and Flory Vang CNA . To receive flu and pnuem vaccine at Dr Lee. Daughter to make f/u appt. Appt made for Dr Baron and Dr Woodward
[2020-07-22 11:35] VITALS: BP 150/71
--- NOTE | 2020-07-23 09:19 | Physician Query Clarification ---
PQ-Further Specificity Admission/Discharge Admission Date: Jul 07, 2020 at 15:05 Discharge Date: Jul 22, 2020 at 14:53 The medical record reflects the following clinical scenario: History/Risk Factors: Patient refuses to turn in bed. Clinical Findings:Decubitus ulcer documented in 07/21/20 progress note. Treatment:PT/OT Question: Can you further specify Location and stage of decubitus ulcer per the clinical indicators above? Please document a response in the Progress Notes or Discharge Summary. 1. Decubitus ulcer-Please state location and stage. 2. Decubitus ulcer,unspecified. 3. Other, with explanation of the clinical findings. 4. Clinically undetermined, no explanation for the clinical findings. PHYSICIAN RESPONSE Can you specify per above: 1 (coccyx 0.5cm) Please remember a lack of response to the above will prompt a phone page by [facility]/Coding staff. In responding to this query, please exercise your independent professional judgment. The purpose of this communication is to more accurately reflect the complexity of your patients condition. The fact that a question is asked does not imply that any particular answer is desired or expected. Thank you for your timely response to this clarification. Requestors name: Wanda Curtis [facility] Phone # ext [phone] or [phone] THIS PHYSICIAN QUERY FORM IS A PERMANENT PART OF THE MEDICAL RECORD WANDA CURTIS Jul 23, 2020 09:19 JOVANI CAVZAOS DO Jul 23, 2020 09:34
== END 2020-07-22 14:53 | disposition home health service (06) | DRG 560 ==
LOC: UNDOADMIN 14:20
PROVIDERS: ADMIT Internal Medicine; ATTEND Internal Medicine
DX: S72.002D Fracture of unspecified part of neck of left femur, subsequent encounter for closed fracture with routine healing (principal); I48.92 Unspecified atrial flutter; D62 Acute posthemorrhagic anemia; I48.0 Paroxysmal atrial fibrillation; I95.1 Orthostatic hypotension; I10 Essential (primary) hypertension; L89.159 Pressure ulcer of sacral region, unspecified stage; R53.81 Other malaise; M19.91 Primary osteoarthritis, unspecified site; F41.9 Anxiety disorder, unspecified; R32 Unspecified urinary incontinence; I08.3 Combined rheumatic disorders of mitral, aortic and tricuspid valves; K21.9 Gastro-esophageal reflux disease without esophagitis; R25.3 Fasciculation; W19.XXXD Unspecified fall, subsequent encounter; Z79.01 Long term (current) use of anticoagulants; Z86.73 Personal history of transient ischemic attack (TIA), and cerebral infarction without residual deficits
CPT/HCPCS: 36415; 73501; 76937; 80053; 82962; 83540; 85025; 85027

== ENCOUNTER 2020-10-16 09:21 | Emergency (ER) | payer MEDICARE ==
[~2020-10-16] VITALS: Ht 167 cm; Wt 58.9 kg
[~2020-10-16 09:21] MED LIST changes: +ALPR.25T PO; -ALPR0.254 PO; -CETI10TA21 PO; +CETI10TA49 PO; +DIGO125T18 PO; +FLDR.1T PO; +OXYC1TAB87 PO; +POTA10TA6 PO
--- NOTE | 2020-10-16 10:08 | ED GU-Female ---
General Chief Complaint: Female 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 Stated Complaint: VAGINAL BLEEDING Nursing Triage Note: PT SENT BY DR. MENDOZA DUE TO SOME VAGINAL BLEEDING THAT STARTED YESTERDAY. PT REPORTS IT WAS ONLY A FEW SPOTS ON HER UNDERWEAR, HAS NOT SEEN ANY TODAY. PT BROUGHT TO ROOM 03 VIA WHEELCHAIR BY TECH. Nursing Sepsis Screen: No Definite Risk Source: patient Exam Limitations: no limitations History of Present Illness Date Seen by Provider: Oct 16, 2020 Time Seen by Provider: 09:34 Initial Comments This 89-year-old woman presents to the emergency room at the encouragement of her primary care provider, Dr. Powell, for reasons of perineal bleeding. She found a couple of spots in her underwear yesterday. She denies any pain. She denies any hematuria. She has not had any bleeding today. She has anticoagulated because of atrial fibrillation. Review of her chart reveals that she is on chronic antibiotic therapy with Macrobid presumably for chronic urinary tract infections. She also has a senior living prescription for Diflucan. She has been seen by Dr. Ruiz. Just prior to discharge, patient's daughter asked us to evaluate her decubitus ulcers on her sacrum. Allergies and Home Medications Allergies Coded Allergies: amoxicillin (Verified Allergy, Unknown, pt has rec Rocephin and Ancef in the past, 07/02/20) clavulanic acid (Verified Allergy, Unknown, 07/02/20) morphine (Verified Adverse Reaction, Unknown, knocks her out, 03/16/20) Home Medications ALPRAZolam 0.25 Mg Tablet, 0.25 MG PO HS, (Reported) Acetaminophen 500 Mg Tablet, 500 MG PO 0900,1300, (Reported) Acetaminophen 500 Mg Tablet, 1,000 MG PO HS, (Reported) Apixaban 5 Mg Tablet, 2.5 MG PO BID, (Reported) TAKES OF A 5MG TAB Ascorbic Acid 500 Mg Tab.chew, 500 MG PO 1900, (Reported) Ciprofloxacin HCl 500 Mg Tablet, 500 MG PO BID Prescribed by: BELA KING on 10/16/20 1137 Cranberry Fruit 450 Mg Tablet, 450 MG PO BID, (Reported) Digoxin 125 Mcg Tablet, 0.125 MG PO DAILY Prescribed by: JOVANI CAVAZOS on 07/22/20 0822 Elderberry Fruit and Flower 1 Each Capsule, 2 EACH PO 1300, (Reported) Ferrous Sulfate 325 Mg Tablet, 325 MG PO 1300, (Reported) Fluconazole 200 Mg Tablet, 200 MG PO SATU, (Reported) TAKES ONCE WEEKLY ON MONDAY Fludrocortisone Acetate 0.1 Mg Tab, 0.1 MG PO DAILY Prescribed by: JOVANI CAVAZOS on 07/22/20821 Loratadine 10 Mg Tablet, 10 MG PO DAILY, (Reported) Melatonin 3 Mg Tablet, 3 MG PO 1900, (Reported) Melatonin 5 Mg Tablet, 5 MG PO HS, (Reported) Mupirocin 22 Gm Oint...g., 1 APPLIC TOP BID PRN for RASH, (Reported) Nitrofurantoin Macrocrystal 100 Mg Capsule, 100 MG PO Q48H, (Reported) TAKES AT 1900 Omeprazole 20 Mg Tablet.dr, 20 MG PO DAILY, (Reported) Oxycodone HCl/Acetaminophen 1 Each Tablet, 1 TAB PO Q4H PRN for PAINMODS Prescribed by: JOVANI CAVAZOS on 07/22/20821 Potassium Chloride 10 Meq Tablet.er, 10 MEQ PO DAILY@0700 Prescribed by: JOVANI CAVAZOS on 07/22/20821 Patient Home Medication List Home Medication List Reviewed: Yes Review of Systems Review of Systems Constitutional: no symptoms reported EENTM: no symptoms reported Respiratory: no symptoms reported Cardiovascular: see HPI Gastrointestinal: no symptoms reported Genitourinary: see HPI : No Musculoskeletal: no symptoms reported Skin: no symptoms reported Psychiatric/Neurological: No Symptoms Reported Endocrine: No Symptoms Reported Hematologic/Lymphatic: See HPI Past Nkbltrh-Wzbxji-Noqygl Hx Past Med/Social Hx: Reviewed Nursing Past Med/Soc Hx Patient Social History Alcohol Use: Denies Use Recreational Drug Use: No Smoking Status: Never a Smoker Recent Foreign Travel: No Contact w/Someone Who Travel: No Recent Infectious Disease Expo: No Recent Hopitalizations: Yes (CYST/ABSCESS REMOVAL 08/2016) Seasonal Allergies Seasonal Allergies: No Past Medical History Surgeries: Yes (abscess treatment) Abdominal, Eye Surgery, Tonsillectomy Respiratory: No Currently Using CPAP: No Currently Using BIPAP: No Cardiac: Yes (atrial flutter) Atrial Fibrillation, Hypertension, Palpitations Neurological: No 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 8.0oz. [id number]; 21.00 BMI Method:Stated General Appearance: WD/WN, no apparent distress HEENT: normal ENT inspection Cardiovascular: regular rate, rhythm, no edema, no murmur Respiratory: lungs clear, normal breath sounds, no respiratory distress Gastrointestinal: normal bowel sounds, non tender, soft Pelvic: other (Chaperoned genital exam reveals a purulent drainage at the vaginal introitus. Source could be urethral or vaginal. No other abnormal findings. 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, no motor/sensory deficits, alert, normal mood/affect, oriented x 3 Skin: normal color, warm/dry, other (Stage II decubitus ulcers over the sacrum) Progress/Results/Core Measures Suspected Sepsis Recent Fever Within 48 Hours: No Infection Criteria Present: None New/Unexplained Altered Menta: No Sepsis Screen: No Definite Risk SIRS Temperature: Pulse: 76 Respiratory Rate: 18 Blood Pressure 170 /81 Mean: 110 Results/Orders Lab Results Laboratory Tests Test 10/16/20 10:15 Range/Units Urine Color YELLOW Urine Clarity CLEAR Urine pH 7.5 5-9 Urine Specific [place] 1.010 L 1.016-1.022 Urine Protein NEGATIVE NEGATIVE Urine Glucose (UA) NEGATIVE NEGATIVE Urine Ketones NEGATIVE NEGATIVE Urine Nitrite NEGATIVE NEGATIVE Urine Bilirubin NEGATIVE NEGATIVE Urine Urobilinogen 0.2 < = 1.0 MG/DL Urine Leukocyte Esterase 2+ H NEGATIVE Urine RBC (Auto) NEGATIVE NEGATIVE Urine RBC 0-2 /HPF Urine WBC 10-25 H /HPF Urine Squamous Epithelial Cells RARE /HPF Urine Crystals NONE /LPF Urine Bacteria TRACE /HPF Urine Casts PRESENT /LPF Urine Hyaline Casts 0-2 H /LPF Urine Mucus NEGATIVE /LPF Urine Culture Indicated NO My Orders Orders - BRUEGGEMANN,BELA T MD Ua Culture If Indicated (10/16/20 10:07) Vital Signs/I&O Capillary Refill : Less Than 3 Seconds Blood Pressure Mean: 110 Progress Note : Progress Note Straight catheter urinalysis was slightly polyuric. Given that she is currently on Macrobid and Diflucan, an additional antibiotic should be added. After reviewing prior cultures, Cipro was selected. Bactrim was not selected because of possible interaction with digoxin. Cephalosporins and penicillins were avoided due to penicillin allergy. Speculum exam was not performed as patient has an appointment with Dr. Schmitz in the next couple of weeks. I suspect her bleeding was caused by urinary tract infection and use of anticoagulants, but perineal bleeding can be explored further during her gynecologic visit. A Mepilex dressing was applied to the pressure ulcer on the sacrum. Patient was advised to get weight off of that area as much as possible. Patient was encouraged to seek care at the wound care clinic. Departure Impression Primary Impression: Female perineal bleeding Additional Impressions: Urinary tract infection Qualified Codes: N39.0 - Urinary tract infection, site not specified Stage II decubitus ulcer Qualified Codes: L89.152 - Pressure ulcer of sacral region, stage 2 Disposition: 01 HOME, SELF-CARE Condition: Stable Departure-Patient Inst. Decision time for Depature: 11:15 Referrals: LORE POWELL DO (PCP/Family) Primary Care Physician Patient Instructions: Urinary Tract Infections in Adults Add. Discharge Instructions: Drink plenty of clear liquids to stay well-hydrated. Complete your antibiotic as prescribed. Review urine culture results with Dr. Ruiz on Monday. Please call his office Monday morning. Discussed your bleeding issues with Dr. Schmitz during your upcoming appointment. Return to the emergency room if you have worsening symptoms or develop new symptoms such as fever. Continue all other medications as previously prescribed. Keep pressure off of your pressure sores as much as possible. Follow-up with [facility] wound care. All discharge instructions reviewed with patient and/or family. Voiced understanding. Scripts Ciprofloxacin HCl (Ciprofloxacin HCl) 500 Mg Tablet 500 MG PO BID, #10 TAB Prov: BELA SILVEIRA MD 10/16/20 Copy Copies To 1: XIOMARA RUIZ MD Copies To 2: ALONZO SCHMITZ MD, JOSHUA T MD Oct 16, 2020 10:08
[2020-10-16 10:26] LABS: BILIRUBIN,URINE NEGATIVE (NEGATIVE); CLARITY,URINE CLEAR; COLOR,URINE YELLOW; GLUCOSE, URINE (UA) NEGATIVE (NEGATIVE); KETONES,URINE NEGATIVE (NEGATIVE); LEUKOCYTE ESTERASE ,URINE 2+ (NEGATIVE); NITRITE,URINE NEGATIVE (NEGATIVE); PH,URINE 7.5 (5-9); PROTEIN,URINE NEGATIVE (NEGATIVE)
[2020-10-16 10:47] LABS: RBC,URINE 0-2 /HPF
[2020-10-16 10:48] LABS: BACTERIA,URINE TRACE /HPF; HYALINE CASTS, URINE 0-2 /LPF; SQUAMOUS EPITHELIAL CELL,UR RARE /HPF
[2020-10-16] MEDS ORDERED: SULF1TAB35 PO (11:27)
[2020-10-16] MEDS ORDERED: CIPR500T4 PO (11:37)
[2020-10-16 11:45] VITALS: BP 181/107
== END 2020-10-16 11:58 | disposition home or self-care (01) ==
LOC: EDUNIT# 09:21 → ER 09:22
DX: N93.8 Other specified abnormal uterine and vaginal bleeding (principal); N39.0 Urinary tract infection, site not specified; L89.152 Pressure ulcer of sacral region, stage 2; I48.91 Unspecified atrial fibrillation; F41.9 Anxiety disorder, unspecified; Z83.3 Family history of diabetes mellitus; Z88.1 Allergy status to other antibiotic agents; Z88.5 Allergy status to narcotic agent; Z79.01 Long term (current) use of anticoagulants
CPT/HCPCS: 81000; 99282